=== PATIENT | female | born 1960 | race Caucasian/White ===

== ENCOUNTER → 2017-04-10 14:14 | Outpatient (POV) | payer BC, SELFPAY ==
[2017-04-10 15:00] VITALS: BP 145/96; PULSE 120; RESP 18; O2SAT 97
--- NOTE | 2017-04-10 15:05 | HMH.PAINSOAP ---
[facility] [place] Pain Management SOAP Note Subjective:: This patient is a pleasant 56-year-old white female who we previously treated in the pain clinic for low back pain with degenerative disease of lumbar spine and lumbar radiculopathy symptoms. This patient has recently had surgery on her thoracic spine with a benign tumor that was removed during surgery. Dr. Mosher did her surgery. She is starting to get some feeling back in her legs and low back area. She is starting to have some increasing pain. She did recently have an MRI in January of her thoracic and lumbar spine. This was done at [facility] we will try to get these results. We will also schedule her for a lumbar epidural steroid injection. She was told by Dr. Mosher that most of these symptoms are coming from degenerative changes throughout her lumbar spine and that she would benefit from a lumbar epidural steroid injection. Objective:: Alert and oriented ?3 no acute distress. Patient has an antalgic gait. She does have some numbness down both legs. Motor strength of the lower extremities is 4 out of 5. 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 Plan:: We will obtain the latest results on her thoracic and lumbar MRI from [facility]. We will also seek approval and plan on lumbar epidural steroid under fluoroscopy at L4-L5.
== END ==
PROVIDERS: Visit Provider Anesthesiology
DX: M51.16 Intervertebral disc disorders with radiculopathy, lumbar region (principal); M96.1 Postlaminectomy syndrome, not elsewhere classified
CPT/HCPCS: 99212

== ENCOUNTER 2017-10-07 13:40 | Inpatient (IN) ==
--- NOTE | 2017-10-07 14:28 | Emergency Department Note ---
ED Disposition Clinical Impression: Wound infection Cellulitis Qualifiers: Site of cellulitis: extremity Site of cellulitis of extremity: finger Laterality: left Qualified Code(s): L03.012 - Cellulitis of left finger Disposition: Admitted As Inpatient Condition on Discharge: Good Referrals: Afua Hurley [Primary Care Provider] - - Critical Care Critical Care Time: No Attestation: On 10/07/17, the high probability of a clinically significant, sudden or life threatening deterioration of the following system(s) required my full and direct attention, intervention and personal management. The time I documented below is in addition to time spent performing reported procedures but includes the following listed in this critical care notation. Medical Decision Making - Obed Inquiry Pt receiving controlled substance: No Vital Signs: 10/07/17 13:57 10/07/17 14:54 10/07/17 14:56 Temperature 98.6 F Temperature Source Oral Pulse Rate [Left Radial] 113 H 104 H 100 H Respiratory Rate 20 20 18 Blood Pressure [Right Arm] 121/93 135/97 151/94 Blood Pressure Mean [Right Arm] 102 109 113 Blood Pressure Source [Right Arm] Automatic Cuff Automatic Cuff Automatic Cuff Blood Pressure Position [Right Arm] Sitting Sitting Supine 02 Sat by Pulse Oximetry 98 95 Oxygen Delivery Method Room Air Room Air - Lab Data Lab Results 10/07/17 14:20: WBC 14.3 H, RBC 4.88, Hgb 14.5, Hct 44.4, MCV 91.0, MCH 29.6, MCHC 32.6, RDW 12.9, Plt Count 247, MPV 8.3, Neut % (Auto) 80.4 H, Lymph % (Auto ) 11.7, Bay % (Auto) 5.8, Eos % (Auto) 1.6, Baso % (Auto) 0.5, Neut # (Auto) 11.5 H, Lymph # (Auto) 1.7, Bay # (Auto) 0.8, Eos # (Auto) 0.2, Baso # (Auto) 0.1 10/07/17 14:20: Sodium 139, Potassium 3.3 L, Chloride 103, Carbon Dioxide 28, Anion Gap 11.3, BUN 12, Creatinine 1.27 H, Estimated Creat Clear 77, Estimated GFR 44 L, Est GFR ( Amer) 53 L, Glucose 96, Calcium 8.9, Total Bilirubin 0.7, AST 14 L, ALT 24, Alkaline Phosphatase 87, Total Protein 8.2, Albumin 3.9, Globulin 4.3 H, Albumin/Globulin Ratio 0.9 L 10/07/17 14:20: Lactic Acid 1.5 Result diagrams: 10/07/17 14:20 10/07/17 14:20 Orders (Tests/Meds): ED MEDICATIONS Generic Name Dose Route Start Last Admin Trade Name Freq PRN Reason Stop Dose Admin Vancomycin HCl 1,750 mg/ 250 mls @ 125 mls/hr 10/07/17 15:00 10/07/17 15:38 Sodium Chloride IV 10/07/17 16:59 125 mls/hr ONCE ONE Administration Discontinued Medications Generic Name Dose Route Start Last Admin Trade Name Freq PRN Reason Stop Dose Admin Piperacillin Sod/Tazobactam 100 mls @ 200 mls/hr 10/07/17 14:43 10/07/17 14: 50 Sod 4.5 gm/ Sodium Chloride IV 10/07/17 14:44 200 mls/hr ONCE ONE Administration Protocol Miscellaneous 1 each 10/07/17 14:45 10/07/17 14:46 Vancomycin Consult Request * 11/06/17 14:44 1 each CONSULT PHARMACY [facility] Administration Tetanus/Reduced Diphtheria/Acell Pertussis 0.5 ml 10/07/17 14:46 10/07/17 14: 49 Adacel Tdap 0.5ml Syringe IM 10/07/17 14:47 0.5 ml .ONCE ONE Administration ORDERS Category Date Time Status Blood Culture Stat Micro 10/07/17 14:20 Received - Radiology Data #1 Image(s): Hand Image Reviewed: Yes I have reviewed radiologist's interpretation Soft tissue swelling, otherwise negative - Physician Consults Physician Consulted: [facility] Time: 16:32 Reason -: Transfer to another facilty Comment/Response: He does not feel patient needs to be transferred there. Based on her presentation he feels she can be admitted here for IV antibiotics. Additional Consult: Bar Time: 16:32 Reason -: Admission Comment/Response: Agrees to admit the patient to the hospital. We discussed the patient's clinical information, including history, exam, laboratory and radiology results and ED course. Per hospital procedure, I will write temporary bridge inpatient orders on the patient. Specific orders requested by the admitting physician: Continue antibiotics Medical Decision Narrative: Review of culture shows preliminary of gram-positive cocci. General Adult HPI - General Chief complaint: Wound/Laceration Stated complaint: Infected LAC L Middle Finger AO [id number] Time Seen by Provider: 10/07/17 14:28 Mode of Arrival: Ambulatory Limitations: No Limitations Description of Symptoms (Recalled from ER Triage Doc. by RN): PT hit/cut her left middle finger while doing dishes last week. She was seen in the [facility] yesterday and was given antibiotic, she returns today due to swelling, bruising and redness to finger - History of Present Illness HPI narrative: The patient cut the dorsum of her left middle finger middle phalanx about a week ago. It started getting infected on Sunday 2 days ago. She came to the urgent treatment center yesterday for some redness and swelling. She was started on oral antibiotics, Bactrim, Keflex, and Diflucan. Today it is much worse. It has become ecchymotic and violaceous around the middle phalanx and redness has now spread up onto the dorsum of her hand. Swelling is increased. She denies fever. She is able to fully straighten the finger. Has redness on the palmar aspect of the finger but does not have much pain on that surface. She can also flex actively. Last tetanus immunization is unknown. - Related Data Home Medications Medication Instructions Recorded Confirmed Albuterol Sulfate [Albuterol HFA 90 mg PO DAILY 10/07/17 10/07/17 Inhaler] Celecoxib 200 mg PO DAILY 10/07/17 10/07/17 Cyclobenzaprine HCl [Flexeril 10mg 10 mg PO DAILY 10/07/17 10/07/17 tablet] Duloxetine HCl 60 mg PO BID 10/07/17 10/07/17 Gabapentin [Neurontin 600mg 600 mg PO TID 10/07/17 10/07/17 tablet] Montelukast Sodium [Singulair 10mg 10 mg PO PM 10/07/17 10/07/17 tablet] Ropinirole HCl [Requip] 0.25 mg PO DAILY 10/07/17 10/07/17 Sulfamethoxazole/Trimethoprim 1 each PO BID 10/07/17 10/07/17 [Bactrim DS tablet] Tramadol HCl [Ultram Take Home 1 tab PO TID 10/07/17 10/07/17 Pack 50mg (10)] Trazodone HCl 50 mg PO Q4H 10/07/17 10/07/17 cephALEXin [Keflex 500mg Cap] 500 mg PO Q6H 10/07/17 10/07/17 Allergies Allergy/AdvReac Type Severity Reaction Status Date / Time No Known Drug Allergies Allergy Unknown Verified 10/06/17 12:29 [NO KNOWN DRUG ALLERGIES] [facility] History I have reviewed the patient's past medical history: Yes Medical History: Denies:: Diabetes Mellitus Type 1, Diabetes Mellitus Type 2 Laterality Cases: Bilateral: Carpal Tunnel Release, Other - Social History Smoking Status: Never smoker Alcohol Intake: never - Psychiatric History Expresses thoughts of harming self/others: None Suicide Plan Description: No Plan ROS Obtained: Yes Systems reviewed as appropriate & no additional complaints - Constitutional Constitutional: Denies fever(s) - Musculoskeletal Musculoskeletal: Reports as per HPI Physical Exam - General General appearance: alert, in no apparent distress - Respiratory Respiratory exam: Absent: respiratory distress - Cardiovascular Cardiovascular exam: Present: regular rate, normal rhythm - Expanded Upper Extremity Exam Left Comment: Left middle finger shows a transverse 2 cm laceration across the dorsum of the middle phalanx. Serous drainage present. Violaceous and ecchymotic discoloration of the middle phalanx. Erythema of the entire finger circumferentially, extending onto the dorsum of the hand over the third metacarpal. She is able to extend fully actively and passively. She can flex actively and passively. No tenderness over the flexor tendons in the palm of the hand. Mild tenderness of the flexor surface of the middle and distal phalanges. She is more tender over the dorsal surface. There is moderate edema of the finger. - Neurological Exam Neurological exam: Present: alert, oriented X3. Absent: motor sensory deficit
[2017-10-07 14:38] LABS: Basophils # 0.1 K/mm3 (0-0.2); Basophils % 0.5 % (0.1-2.0); Eosinophils # 0.2 K/mm3 (0.0-0.4); Eosinophils % 1.6 % (0.1-12.0); Hematocrit 44.4 % (37.0-47.0); Hemoglobin 14.5 g/dL (12.2-16.2); Lymphocytes # 1.7 K/mm3 (0.7-4.5); Lymphocytes % 11.7 K/mm3 (10-50); Mean Corpuscular HGB Conc 32.6 g/dL (31.8-35.4); Mean Corpuscular Hemoglobin 29.6 pg (27.0-31.2); Mean Platelet Volume 8.3 fl (7.4-10.4); Monocytes # 0.8 K/mm3 (0.1-1.0); Monocytes % 5.8 % (1.7-9.3); Neutrophils # 11.5 K/mm3 (1.8-7.8); Neutrophils % 80.4 % (37.0-80.0); Platelet Count 247 K/mm3 (142-424); Red Blood Count 4.88 M/mm3 (4.20-5.40); Red Cell Distribution Width 12.9 % (11.5-17.5); White Blood Count 14.3 K/mm3 (4.8-10.8)
[2017-10-07 14:49] LABS: Albumin Level 3.9 gm/dL (3.4-5.0); Albumin/Globulin Ratio 0.9 (1.1-1.8); Anion Gap 11.3 mEq/L (5-15); Bilirubin,Total 0.7 mg/dL (0.2-1.0); Calcium 8.9 mg/dL (8.5-10.1); Globulin 4.3 gm/dl (1.3-3.2); Potassium 3.3 mmoL/L (3.5-5.1); Total Protein,Serum 8.2 gm/dL (6.4-8.2)
[2017-10-08 06:08] LABS: Mean Platelet Volume 8.2 fl (7.4-10.4); Monocytes # 0.4 K/mm3 (0.1-1.0); Red Cell Distribution Width 12.9 % (11.5-17.5)
[2017-10-08 06:14] LABS: Basophils % 0.6 % (0.1-2.0); Eosinophils # 0.3 K/mm3 (0.0-0.4); Eosinophils % 3.8 % (0.1-12.0); Hematocrit 36.7 % (37.0-47.0); Lymphocytes # 1.6 K/mm3 (0.7-4.5); Lymphocytes % 22.4 K/mm3 (10-50); Mean Corpuscular HGB Conc 32.4 g/dL (31.8-35.4); Mean Corpuscular Hemoglobin 29.7 pg (27.0-31.2); Mean Corpuscular Volume 91.6 fl (81-99); Monocytes % 5.6 % (1.7-9.3); Neutrophils # 4.7 K/mm3 (1.8-7.8); Neutrophils % 67.6 % (37.0-80.0); Platelet Count 194 K/mm3 (142-424); Red Blood Count 4.01 M/mm3 (4.20-5.40)
[2017-10-08 06:16] LABS: Hemoglobin 11.9 g/dL (12.2-16.2)
--- NOTE | 2017-10-08 07:48 | Pharmacy Consult Notes ---
[facility] Pharmacy VTE Monitoring - Patient Demographics Admission date: 10/07/17 Report Date: 10/08/17 Time: 07:48 Allergies/Adverse Reactions: Patient Allergies No Known Drug Allergies [NO KNOWN DRUG ALLERGIES] Allergy (Unknown, Verified 12:29) Height: 1.63 m Weight: 101.151 kg Patient Problems: Current Active Problems Wound infection (Acute) Cellulitis (Acute) - VTE Risk Labs: VTE Related Lab Results Hgb 11.9 g/dL (12.2-16.2) L D 10/08/17 05:45 Hct 36.7 % (37.0-47.0) L 10/08/17 05:45 Plt Count 194 K/mm3 (142-424) 10/08/17 05:45 BUN 12 mg/dL (7-18) 10/07/17 14:20 Creatinine 1.27 mg/dL (0.55-1.02) H 10/07/17 14:20 Estimated Creat Clear 77 mL/min (0-300) 10/07/17 14:20 Was VTE Risk Assessment Performed: Yes VTE Score: 1 VTE Risk Level: Very Low Risk - Prophylaxis VTE Prophylaxis Ordered?: Yes Types of VTE Prophylaxis: TEDS Knee High Location of Applied Device: Bilateral Lower Extremeties - VTE Diagnosis Confirmed Treatment or plan recommended: Continue Current Treatment
--- NOTE | 2017-10-08 08:12 | Pharmacy Consult Notes ---
- Pharmacy Consult Date: 10/08/17 Time: 08:11 Referring provider: DR. CLARK Reason for Consult:: VANCOMYCIN DOSING Allergies and ADEs:: Allergies Allergy/AdvReac Type Severity Reaction Status Date / Time No Known Drug Allergies Allergy Unknown Verified 10/06/17 12:29 [NO KNOWN DRUG ALLERGIES] Home Medications:: Home Medications Medication Instructions Recorded Confirmed Type Albuterol Sulfate [Albuterol HFA 90 mg PO DAILY 10/07/17 10/07/17 History Inhaler] Celecoxib 200 mg PO DAILY 10/07/17 10/07/17 History Cyclobenzaprine HCl [Flexeril 10mg 10 mg PO DAILY 10/07/17 10/07/17 History tablet] Duloxetine HCl 60 mg PO BID 10/07/17 10/07/17 History Gabapentin [Neurontin 600mg 600 mg PO TID 10/07/17 10/07/17 History tablet] Montelukast Sodium [Singulair 10mg 10 mg PO PM 10/07/17 10/07/17 History tablet] Ropinirole HCl [Requip] 0.25 mg PO DAILY 10/07/17 10/07/17 History Sulfamethoxazole/Trimethoprim 1 each PO BID 10/07/17 10/07/17 History [Bactrim DS tablet] Tramadol HCl [Ultram Take Home 1 tab PO TID 10/07/17 10/07/17 History Pack 50mg (10)] Trazodone HCl 50 mg PO Q4H 10/07/17 10/07/17 History cephALEXin [Keflex 500mg Cap] 500 mg PO Q6H 10/07/17 10/07/17 History Height: 1.63 m Weight: 101.151 kg Laboratory Results:: Laboratory Results - last 24 hr 10/07/17 14:20: WBC 14.3 H, RBC 4.88, Hgb 14.5, Hct 44.4, MCV 91.0, MCH 29.6, MCHC 32.6, RDW 12.9, Plt Count 247, MPV 8.3, Neut % (Auto) 80.4 H, Lymph % (Auto ) 11.7, Spencer % (Auto) 5.8, Eos % (Auto) 1.6, Baso % (Auto) 0.5, Neut # (Auto) 11.5 H, Lymph # (Auto) 1.7, Spencer # (Auto) 0.8, Eos # (Auto) 0.2, Baso # (Auto) 0.1 10/07/17 14:20: Sodium 139, Potassium 3.3 L, Chloride 103, Carbon Dioxide 28, Anion Gap 11.3, BUN 12, Creatinine 1.27 H, Estimated Creat Clear 77, Estimated GFR 44 L, Est GFR ( Amer) 53 L, Glucose 96, Calcium 8.9, Total Bilirubin 0.7, AST 14 L, ALT 24, Alkaline Phosphatase 87, Total Protein 8.2, Albumin 3.9, Globulin 4.3 H, Albumin/Globulin Ratio 0.9 L 10/07/17 14:20: Lactic Acid 1.5 10/08/17 05:45: WBC 7.0 D, RBC 4.01 L, Hgb 11.9 L D, Hct 36.7 L, MCV 91.6, MCH 29.7, MCHC 32.4, RDW 12.9, Plt Count 194, MPV 8.2, Neut % (Auto) 67.6, Lymph % ( Auto) 22.4, Spencer % (Auto) 5.6, Eos % (Auto) 3.8, Baso % (Auto) 0.6, Neut # (Auto ) 4.7, Lymph # (Auto) 1.6, Spencer # (Auto) 0.4, Eos # (Auto) 0.3, Baso # (Auto) 0.0 Medical History: Reports:: Hypertension Denies:: Cancer, Diabetes Mellitus Type 1, Diabetes Mellitus Type 2, MRSA Assessment and Plan - Assessment and plan all Dx Assessment and Plan for all problems:: BASED ON PATIENT FACTORS, RECOMMEND VANCOMYCIN 1750 MG IV Q24H. PHARMACY WILL FOLLOW DAILY AND ADJUST APPROPRIATE.
--- NOTE | 2017-10-08 09:06 | History & Physical Report ---
*Admission Date: 10/07/17 <Kandice Alicea 10/08/17 09:06> *Chief complaint: Cellulitis of mid finger on left hand <Kandice Alicea 10/08 09:06> *History of present illness: Ms. Cardona is a 57-year-old female who presented to [facility] emergency room with increased edema of the left middle finger. She describes cutting his finger when washing the dishes about a week ago. She states she did not notice an infection until 10/05/2017. She did go to urgent treatment center at which time she placed on Bactrim and Keflex. Yesterday the edema was worse and she decided to come to the emergency room. She also describes edema of the hand. She denies having a fever. She was evaluated in the emergency room and admitted for IV antibiotics. She also has an orthopedic consult. She feels that the swelling has improved overnight. <Kandice Alicea 10/08/17 11:30> [facility] History Medical History: Reports:: Cancer, Gastroesophageal Reflux Disease(GERD), Hypertension Denies:: Coronary Artery Disease, Diabetes Mellitus Type 1, Diabetes Mellitus Type 2, MRSA, Seizures <Kandice Alicea 10/08/17 11:30> Laterality Cases: Bilateral: Carpal Tunnel Release, Other <Kandice Alicea 05/27 09:06> Other Surgeries: Yes: Cholecystectomy, , Other (cancerous mass removed from spine 2016) <Kandice Alicea 10/08/17 11:30> Amputation: No <Kandice Alicea 10/08/17 09:06> Fractures: No <Kandice Alicea 10/08/17 09:06> - *Social History Educational Level: Completed High School <Kandice Alicea 10/08/17 09:06> Smoking Status: Never smoker <Kandice Alicea 10/08/17 09:06> Alcohol Intake: never <Kandice Alicea 10/08/17 09:06> Occupational Status: disabled <Kandice Alicea 10/08/17 09:06> Housing: house <Kandice Alicea 10/08/17 09:06> Household Members: spouse <Kandice Alicea 10/08/17 09:06> - Psychiatric History Expresses thoughts of harming self/others: None <Kandice Alicea 10/08/17 09: 06> Suicide Plan Description: No Plan <Kandice Alicea 10/08/17 09:06> *Family Hx:: no Cancer, no Coronary Artery Disease, no Diabetes <Kandice Alicea 10/08/17 11:30> Review of Systems - Constitutional Denies fever(s), Denies headache(s) <NixonKandice Francisco 10/08/17 11:30> - ENT Denies ear pain, Denies sore throat <Kandice Alicea 10/08/17 11:30> - *Cardiovascular Denies chest pain, Denies shortness of breath, Denies irregular heart rhythm, Denies leg swelling <NixonKandice 10/08/17 11:30> - *Respiratory Denies chest congestion, Denies cough, Denies shortness of breath <Nixon Kandice 10/08/17 11:30> - *Gastrointestinal Denies abdominal pain, Denies heartburn, Denies nausea, Denies vomiting < Kandice Alicea 10/08/17 11:30> - *Genitourinary Denies difficulty urinating, Denies urinary incontinence <Kandice Alicea 05/27 11:30> - *Musculoskeletal Reports abnormal walking, Reports joint pain <Kandice Alicea 10/08/17 11:30> Comments: PAIN AROUND INFECTED AREA ON LEFT MIDDLE FINGER; THE SWELLING IN THE FINGER AND HAND INCREASED OVER THE PAST 2-3 DAYS <AliceaKandice 10/08/17 11:30> - *Neurologic Reports abnormal walking, Reports numbness (after mass removed from her back) <NixonKandice 10/08/17 11:30> Comments: uses cane sometimes <Kandice Alicea 10/08/17 11:30> Meds Home Medications Medication Instructions Recorded Confirmed Type Albuterol Sulfate [Albuterol HFA 90 mg PO DAILY 10/07/17 10/07/17 History Inhaler] Celecoxib 200 mg PO BID 10/07/17 10/08/17 History Cyclobenzaprine HCl [Flexeril 10mg 10 mg PO DAILY 10/07/17 10/07/17 History tablet] Duloxetine HCl 60 mg PO BID 10/07/17 10/07/17 History Gabapentin [Neurontin 600mg 600 mg PO TID 10/07/17 10/07/17 History tablet] Montelukast Sodium [Singulair 10mg 10 mg PO PM 10/07/17 10/07/17 History tablet] Ropinirole HCl [Requip] 0.25 mg PO DAILY 10/07/17 10/07/17 History Sulfamethoxazole/Trimethoprim 1 each PO BID 10/07/17 10/07/17 History [Bactrim DS tablet] Trazodone HCl 50 mg PO DAILY 10/07/17 10/08/17 History cephALEXin [Keflex 500mg Cap] 500 mg PO Q6H 10/07/17 10/07/17 History Tramadol HCl [Ultram 50mg 50 mg PO TID 10/08/17 10/08/17 History tablet] <Tomasz Dinero - 10/08/17 11:45> Allergies Allergy/AdvReac Type Severity Reaction Status Date / Time No Known Drug Allergies Allergy Unknown Verified 10/06/17 12:29 [NO KNOWN DRUG ALLERGIES] <Tomasz Dinero - 10/08/17 11:45> Exam Vital signs and Labs for Last 24 Hours: Temp Pulse Resp BP Pulse Ox 97.8 F 101 H 18 104/65 98 10/08/17 08:00 10/08/17 08:00 10/08/17 08:00 10/08/17 08:00 10/08/17 08:00 Laboratory Results - last 24 hr 10/07/17 14:20: WBC 14.3 H, RBC 4.88, Hgb 14.5, Hct 44.4, MCV 91.0, MCH 29.6, MCHC 32.6, RDW 12.9, Plt Count 247, MPV 8.3, Neut % (Auto) 80.4 H, Lymph % (Auto ) 11.7, [place] % (Auto) 5.8, Eos % (Auto) 1.6, Baso % (Auto) 0.5, Neut # (Auto) 11.5 H, Lymph # (Auto) 1.7, [place] # (Auto) 0.8, Eos # (Auto) 0.2, Baso # (Auto) 0.1 10/07/17 14:20: Sodium 139, Potassium 3.3 L, Chloride 103, Carbon Dioxide 28, Anion Gap 11.3, BUN 12, Creatinine 1.27 H, Estimated Creat Clear 77, Estimated GFR 44 L, Est GFR ( Amer) 53 L, Glucose 96, Calcium 8.9, Total Bilirubin 0.7, AST 14 L, ALT 24, Alkaline Phosphatase 87, Total Protein 8.2, Albumin 3.9, Globulin 4.3 H, Albumin/Globulin Ratio 0.9 L 10/07/17 14:20: Lactic Acid 1.5 10/08/17 05:45: WBC 7.0 D, RBC 4.01 L, Hgb 11.9 L D, Hct 36.7 L, MCV 91.6, MCH 29.7, MCHC 32.4, RDW 12.9, Plt Count 194, MPV 8.2, Neut % (Auto) 67.6, Lymph % ( Auto) 22.4, [place] % (Auto) 5.6, Eos % (Auto) 3.8, Baso % (Auto) 0.6, Neut # (Auto ) 4.7, Lymph # (Auto) 1.6, [place] # (Auto) 0.4, Eos # (Auto) 0.3, Baso # (Auto) 0.0 <Tomasz Dinero - 10/08/17 11:45> Temp Pulse Resp BP Pulse Ox 97.8 F 101 H 18 104/65 98 10/08/17 08:00 10/08/17 08:00 10/08/17 08:00 10/08/17 08:00 10/08/17 08:00 Laboratory Results - last 24 hr 10/07/17 14:20: WBC 14.3 H, RBC 4.88, Hgb 14.5, Hct 44.4, MCV 91.0, MCH 29.6, MCHC 32.6, RDW 12.9, Plt Count 247, MPV 8.3, Neut % (Auto) 80.4 H, Lymph % (Auto ) 11.7, [place] % (Auto) 5.8, Eos % (Auto) 1.6, Baso % (Auto) 0.5, Neut # (Auto) 11.5 H, Lymph # (Auto) 1.7, [place] # (Auto) 0.8, Eos # (Auto) 0.2, Baso # (Auto) 0.1 10/07/17 14:20: Sodium 139, Potassium 3.3 L, Chloride 103, Carbon Dioxide 28, Anion Gap 11.3, BUN 12, Creatinine 1.27 H, Estimated Creat Clear 77, Estimated GFR 44 L, Est GFR ( Amer) 53 L, Glucose 96, Calcium 8.9, Total Bilirubin 0.7, AST 14 L, ALT 24, Alkaline Phosphatase 87, Total Protein 8.2, Albumin 3.9, Globulin 4.3 H, Albumin/Globulin Ratio 0.9 L 10/07/17 14:20: Lactic Acid 1.5 10/08/17 05:45: WBC 7.0 D, RBC 4.01 L, Hgb 11.9 L D, Hct 36.7 L, MCV 91.6, MCH 29.7, MCHC 32.4, RDW 12.9, Plt Count 194, MPV 8.2, Neut % (Auto) 67.6, Lymph % ( Auto) 22.4, [place] % (Auto) 5.6, Eos % (Auto) 3.8, Baso % (Auto) 0.6, Neut # (Auto ) 4.7, Lymph # (Auto) 1.6, [place] # (Auto) 0.4, Eos # (Auto) 0.3, Baso # (Auto) 0.0 <Kandice Alicea - 10/08/17 11:30> I & O for Last 24 hours: Intake & Output 10/05/17 10/06/17 10/07/17 10/08/17 11:59 11:59 11:59 11:59 Intake Total 994 / 994 Balance 994 / 994 Weight 223 lb <Tomasz Dinero - 10/08/17 11:45> Intake & Output 10/05/17 10/06/17 10/07/17 10/08/17 11:59 11:59 11:59 11:59 Intake Total 994 / 994 Balance 994 / 994 Weight 223 lb <Kandice Alicea - 10/08/17 09:06> Microbiology Reports for the Last 24 Hours: cuture reveals staoh aureus <Kandice Alicea - 10/08/17 11:30> Radiology Reports for the Last 24 Hours: 10/07/17 xRAY OF THE LEFT HAND IMPRESSION: Soft tissue swelling of the third finger otherwise negative <Kandice Alicea 10/08/17 11:30> - Constitutional no acute distress <Kandice Alicea 10/08/17 11:30> Comments: SITTING UP IN THE BED AND APPEARS COMFORTABLE <Kandice Alicea 10/08/17 11:30> - *Routine HEENT Exam Head: Present: normocephalic, atraumatic <[facility] 10/08/17 11:30> Eye: Present: PERRL. Absent: conjunctival icterus, scleral injection <[facility] 10/08/17 11:30> ENT: Present: mucous membranes moist, oropharynx clear [facility] 11:30> - *Routine Neck Exam Present: supple. Absent: carotid bruit, thyromegaly <[facility] 11:30> - *Routine Respiratory Exam Present: CTA bilaterally (A&P) <[facility] 10/08/17 11:30> - *Routine Cardiovascular Exam Present: RRR <[facility] 10/08/17 11:30> - *Routine Abdominal Exam Present: normoactive bowel sounds. Absent: tenderness <Kandice Alicea 11:30> - *Routine Extremities Exam Absent: calf tenderness <[facility] 10/08/17 11:30> Comments: left middle finger with discoloration and edema with limited ROM; some edema of the dorsal aspect of the left had; no erythema of the hand no leg edema <[facility] 10/08/17 11:30> - *Routine Neurological Exam Present: alert, oriented X3 <[facility] 10/08/17 11:30> H&P: Result - Labs Labs: Short CBC 10/07/17 10/08/17 Range/Units 14:20 05:45 WBC 14.3 H 7.0 D (4.8-10.8) K/mm3 Hgb 14.5 11.9 L D (12.2-16.2) g/dL Hct 44.4 36.7 L (37.0-47.0) % Plt Count 247 194 (142-424) K/mm3 [facility] 10/07/17 14:20 Sodium 139 Potassium 3.3 L Chloride 103 Carbon Dioxide 28 BUN 12 Creatinine 1.27 H Glucose 96 Calcium 8.9 Liver Function 10/07/17 Range/Units 14:20 Total Bilirubin 0.7 (0.2-1.0) mg/dL AST 14 L (15-37) U/L ALT 24 (12-78) U/L Alkaline Phosphatase 87 (46-116) U/L Albumin 3.9 (3.4-5.0) gm/dL <Tomasz Dinero - 10/08/17 11:45> Short CBC 10/07/17 10/08/17 Range/Units 14:20 05:45 WBC 14.3 H 7.0 D (4.8-10.8) K/mm3 Hgb 14.5 11.9 L D (12.2-16.2) g/dL Hct 44.4 36.7 L (37.0-47.0) % Plt Count 247 194 (142-424) K/mm3 [facility] 10/07/17 14:20 Sodium 139 Potassium 3.3 L Chloride 103 Carbon Dioxide 28 BUN 12 Creatinine 1.27 H Glucose 96 Calcium 8.9 Liver Function 10/07/17 Range/Units 14:20 Total Bilirubin 0.7 (0.2-1.0) mg/dL AST 14 L (15-37) U/L ALT 24 (12-78) U/L Alkaline Phosphatase 87 (46-116) U/L Albumin 3.9 (3.4-5.0) gm/dL <Kandice Alicea - 10/08/17 09:06> Assessment and Plan (1) Cellulitis Current visit: Yes Status: Acute Qualifiers: Site of cellulitis: extremity Site of cellulitis of extremity: finger Laterality: left Qualified Code(s): L03.012 - Cellulitis of left finger Category: Medical Code(s): L03.90 - Cellulitis, unspecified (2) Wound infection Current visit: Yes Status: Acute Category: Medical Code(s): T14.8XXA - Other injury of unspecified body region, initial encounter; L08.9 - Local infection of the skin and subcutaneous tissue, unspecified (3) Finger infection Current visit: No Status: Acute Category: Medical Code(s): L08.9 - Local infection of the skin and subcutaneous tissue, unspecified <Tomasz Dinero - 10/08/17 11:45> (1) Cellulitis Current visit: Yes Status: Acute Qualifiers: Site of cellulitis: extremity Site of cellulitis of extremity: finger Laterality: left Qualified Code(s): L03.012 - Cellulitis of left finger Category: Medical Code(s): L03.90 - Cellulitis, unspecified (2) Wound infection Current visit: Yes Status: Acute Category: Medical Code(s): T14.8XXA - Other injury of unspecified body region, initial encounter; L08.9 - Local infection of the skin and subcutaneous tissue, unspecified (3) Finger infection Current visit: No Status: Acute Category: Medical Code(s): L08.9 - Local infection of the skin and subcutaneous tissue, unspecified <Kandice Alicea - 10/08/17 11:10> - Assessment and plan all Dx Assessment and Plan for all problems:: Saw patient, agree with above note. <Tomasz Dinero - 10/08/17 11:45> IV ABX; orthopedic consult <Kandice Alicea - 10/08/17 11:30>
--- NOTE | 2017-10-08 12:54 | Consult Report ---
*Admission Date: 10/07/17 *Chief complaint: Laceration/infection left middle finger *History of present illness: Patient is a 57-year-old female who states that while at home, approximately 1 week ago, she incurred a laceration to the dorsal aspect of her left middle finger overlying the PIP joint. This occurred with a broken piece of Pyrex. She states that she did not notice any significant swelling until the day or so ago but also noted a purulent discharge at that point. She was seen in the urgent treatment center placed on Bactrim and Keflex. Upon noticing that the swelling was worse she presented to the emergency department where she was admitted and placed on ampicillin and vancomycin. Cultures were sent for aerobic and anaerobic cultures and currently have been positive for Staphylococcus aureus. EXAMINATION patient is limited to the left hand. The hand is warm and dry with flexion of the left middle finger. There is an area of purulent discharge overlying the PIP joint dorsally. There is an area of necrotic skin with superficial donation and a surrounding border of erythema. The patient is sensate to light touch radial and ulnar borders in the volar pad as well. There is no evidence of Kanavel's signs. No evidence of flexor tenosynovitis. No tenderness along the flexor tendon is noted. [place] purulent discharge is noted emanating from the dorsal aspect of the finger. IMPRESSION laceration dorsal aspect of left index finger with infection, possibly involving the actual joint itself. Unable to assess integrity of the extensor tendon at this point PLAN patient's been discussed with Dr. Low, the on-call orthopedic surgeon who will assess the patient independently and provide further recommendations and treatment. Patient has been advised of this handoff. Review of Systems - *Neurologic Reports abnormal walking, Reports numbness (after mass removed from her back), Denies headache(s) [facility] History Medical History: Reports:: Cancer, Gastroesophageal Reflux Disease(GERD), Hypertension Denies:: Chronic Obstructive Pulmonary Disease (COPD), Coronary Artery Disease, Diabetes Mellitus Type 1, Diabetes Mellitus Type 2, MRSA, Seizures Laterality Cases: Bilateral: Carpal Tunnel Release, Other Other Surgeries: Yes: Cholecystectomy, , Other (cancerous mass removed from spine 2016) Amputation: No Fractures: No - *Social History Educational Level: Completed High School Smoking Status: Never smoker Alcohol Intake: never Occupational Status: disabled Housing: house Household Members: spouse - Psychiatric History Expresses thoughts of harming self/others: None Suicide Plan Description: No Plan *Family Hx:: no Cancer, no Coronary Artery Disease, no Diabetes Meds Home Medications Medication Instructions Recorded Confirmed Type Albuterol Sulfate [Albuterol HFA 2 puff INHALATION Q4-6H PRN 10/07/17 10/08/17 History Inhaler] Celecoxib 200 mg PO BID 10/07/17 10/08/17 History Cyclobenzaprine HCl [Flexeril 10mg 10 mg PO DAILY 10/07/17 10/07/17 History tablet] Duloxetine HCl 60 mg PO BID 10/07/17 10/07/17 History Gabapentin [Neurontin 600mg 1,200 mg PO TID 10/07/17 10/08/17 History tablet] Montelukast Sodium [Singulair 10mg 10 mg PO HS 10/07/17 10/08/17 History tablet] Sulfamethoxazole/Trimethoprim 1 each PO BID 10/07/17 10/07/17 History [Bactrim DS tablet] Trazodone HCl 50 mg PO HS 10/07/17 10/08/17 History cephALEXin [Keflex 500mg Cap] 500 mg PO Q6H 10/07/17 10/07/17 History Ropinirole HCl [Requip] 0.5 mg PO HS 10/08/17 10/08/17 History Tramadol HCl [Ultram 50mg 50 mg PO TID 10/08/17 10/08/17 History tablet] Allergies Allergy/AdvReac Type Severity Reaction Status Date / Time No Known Drug Allergies Allergy Unknown Verified 10/06/17 12:29 [NO KNOWN DRUG ALLERGIES] Exam Vital signs and Labs for Last 24 Hours: Temp Pulse Resp BP Pulse Ox 97.8 F 101 H 18 104/65 98 10/08/17 08:00 10/08/17 08:00 10/08/17 08:00 10/08/17 08:00 10/08/17 08:00 Laboratory Results - last 24 hr 10/07/17 14:20: WBC 14.3 H, RBC 4.88, Hgb 14.5, Hct 44.4, MCV 91.0, MCH 29.6, MCHC 32.6, RDW 12.9, Plt Count 247, MPV 8.3, Neut % (Auto) 80.4 H, Lymph % (Auto ) 11.7, [place] % (Auto) 5.8, Eos % (Auto) 1.6, Baso % (Auto) 0.5, Neut # (Auto) 11.5 H, Lymph # (Auto) 1.7, [place] # (Auto) 0.8, Eos # (Auto) 0.2, Baso # (Auto) 0.1 10/07/17 14:20: Sodium 139, Potassium 3.3 L, Chloride 103, Carbon Dioxide 28, Anion Gap 11.3, BUN 12, Creatinine 1.27 H, Estimated Creat Clear 77, Estimated GFR 44 L, Est GFR ( Amer) 53 L, Glucose 96, Calcium 8.9, Total Bilirubin 0.7, AST 14 L, ALT 24, Alkaline Phosphatase 87, Total Protein 8.2, Albumin 3.9, Globulin 4.3 H, Albumin/Globulin Ratio 0.9 L 10/07/17 14:20: Lactic Acid 1.5 10/08/17 05:45: WBC 7.0 D, RBC 4.01 L, Hgb 11.9 L D, Hct 36.7 L, MCV 91.6, MCH 29.7, MCHC 32.4, RDW 12.9, Plt Count 194, MPV 8.2, Neut % (Auto) 67.6, Lymph % ( Auto) 22.4, [place] % (Auto) 5.6, Eos % (Auto) 3.8, Baso % (Auto) 0.6, Neut # (Auto ) 4.7, Lymph # (Auto) 1.6, [place] # (Auto) 0.4, Eos # (Auto) 0.3, Baso # (Auto) 0.0 I & O for Last 24 hours: Intake & Output 10/06/17 10/07/17 10/08/17 10/09/17 11:59 11:59 11:59 11:59 Intake Total 994 / 994 Balance 994 / 994 Weight 223 lb - Detailed Upper Extremity Exam Shoulder/Upper Arm: Left wound (ASSESSMENT:) Results - Labs Result Diagrams: 10/09/17 05:57 10/09/17 05:57 Labs: Abnormal lab results 10/07/17 10/07/17 10/08/17 Range/Units 14:20 14:20 05:45 WBC 14.3 H (4.8-10.8) K/mm3 RBC 4.01 L (4.20-5.40) M/mm3 Hgb 11.9 L D (12.2-16.2) g/dL Hct 36.7 L (37.0-47.0) % Neut % (Auto) 80.4 H (37.0-80.0) % Neut # (Auto) 11.5 H (1.8-7.8) K/mm3 Potassium 3.3 L (3.5-5.1) mmoL/L Creatinine 1.27 H (0.55-1.02) mg/dL Estimated GFR 44 L (>60) ml/min Est GFR ( Amer) 53 L (>60) ML/MIN AST 14 L (15-37) U/L Globulin 4.3 H (1.3-3.2) gm/dl Albumin/Globulin Ratio 0.9 L (1.1-1.8) H & H 10/07/17 10/08/17 Range/Units 14:20 05:45 Hgb 14.5 11.9 L D (12.2-16.2) g/dL Hct 44.4 36.7 L (37.0-47.0) % All other labs normal. Assessment and Plan (1) Wound infection Current visit: Yes Status: Acute Category: Medical Code(s): T14.8XXA - Other injury of unspecified body region, initial encounter; L08.9 - Local infection of the skin and subcutaneous tissue, unspecified (2) Finger infection Current visit: No Status: Acute Category: Medical Code(s): L08.9 - Local infection of the skin and subcutaneous tissue, unspecified
--- NOTE | 2017-10-08 13:05 | Consult Report ---
*Admission Date: 10/07/17 *History of present illness: Ms. Cardona is a 57-year-old female who presented to [facility] emergency room with increased edema of the left middle finger. She describes cutting his finger when washing the dishes about a week ago. She states she did not notice an infection until 10/05/2017. She did go to urgent treatment center at which time she placed on Bactrim and Keflex. Yesterday the edema was worse and she decided to come to the emergency room. She also describes edema of the hand. She denies having a fever. She was evaluated in the emergency room and admitted for IV antibiotics. She also has an orthopedic consult. She feels that the swelling has improved overnight. Review of Systems - *Neurologic Reports abnormal walking, Reports numbness (after mass removed from her back), Denies headache(s) [facility] History Medical History: Reports:: Cancer, Gastroesophageal Reflux Disease(GERD), Hypertension Denies:: Chronic Obstructive Pulmonary Disease (COPD), Coronary Artery Disease, Diabetes Mellitus Type 1, Diabetes Mellitus Type 2, MRSA, Seizures Laterality Cases: Bilateral: Carpal Tunnel Release, Other Other Surgeries: Yes: Cholecystectomy, , Other (cancerous mass removed from spine 2016) Amputation: No Fractures: No - *Social History Educational Level: Completed High School Smoking Status: Never smoker Alcohol Intake: never Occupational Status: disabled Housing: house Household Members: spouse - Psychiatric History Expresses thoughts of harming self/others: None Suicide Plan Description: No Plan *Family Hx:: no Cancer, no Coronary Artery Disease, no Diabetes Meds Home Medications Medication Instructions Recorded Confirmed Type Albuterol Sulfate [Albuterol HFA 2 puff INHALATION Q4-6H PRN 10/07/17 10/08/17 History Inhaler] Celecoxib 200 mg PO BID 10/07/17 10/08/17 History Cyclobenzaprine HCl [Flexeril 10mg 10 mg PO DAILY 10/07/17 10/07/17 History tablet] Duloxetine HCl 60 mg PO BID 10/07/17 10/07/17 History Gabapentin [Neurontin 600mg 1,200 mg PO TID 10/07/17 10/08/17 History tablet] Montelukast Sodium [Singulair 10mg 10 mg PO HS 10/07/17 10/08/17 History tablet] Sulfamethoxazole/Trimethoprim 1 each PO BID 10/07/17 10/07/17 History [Bactrim DS tablet] Trazodone HCl 50 mg PO DAILY 10/07/17 10/08/17 History cephALEXin [Keflex 500mg Cap] 500 mg PO Q6H 10/07/17 10/07/17 History Ropinirole HCl [Requip] 0.5 mg PO HS 10/08/17 10/08/17 History Tramadol HCl [Ultram 50mg 50 mg PO TID 10/08/17 10/08/17 History tablet] Allergies Allergy/AdvReac Type Severity Reaction Status Date / Time No Known Drug Allergies Allergy Unknown Verified 10/06/17 12:29 [NO KNOWN DRUG ALLERGIES] Exam Vital signs and Labs for Last 24 Hours: Temp Pulse Resp BP Pulse Ox 97.8 F 101 H 18 104/65 98 10/08/17 08:00 10/08/17 08:00 10/08/17 08:00 10/08/17 08:00 10/08/17 08:00 Laboratory Results - last 24 hr 10/07/17 14:20: WBC 14.3 H, RBC 4.88, Hgb 14.5, Hct 44.4, MCV 91.0, MCH 29.6, MCHC 32.6, RDW 12.9, Plt Count 247, MPV 8.3, Neut % (Auto) 80.4 H, Lymph % (Auto ) 11.7, [place] % (Auto) 5.8, Eos % (Auto) 1.6, Baso % (Auto) 0.5, Neut # (Auto) 11.5 H, Lymph # (Auto) 1.7, [place] # (Auto) 0.8, Eos # (Auto) 0.2, Baso # (Auto) 0.1 10/07/17 14:20: Sodium 139, Potassium 3.3 L, Chloride 103, Carbon Dioxide 28, Anion Gap 11.3, BUN 12, Creatinine 1.27 H, Estimated Creat Clear 77, Estimated GFR 44 L, Est GFR ( Amer) 53 L, Glucose 96, Calcium 8.9, Total Bilirubin 0.7, AST 14 L, ALT 24, Alkaline Phosphatase 87, Total Protein 8.2, Albumin 3.9, Globulin 4.3 H, Albumin/Globulin Ratio 0.9 L 10/07/17 14:20: Lactic Acid 1.5 10/08/17 05:45: WBC 7.0 D, RBC 4.01 L, Hgb 11.9 L D, Hct 36.7 L, MCV 91.6, MCH 29.7, MCHC 32.4, RDW 12.9, Plt Count 194, MPV 8.2, Neut % (Auto) 67.6, Lymph % ( Auto) 22.4, [place] % (Auto) 5.6, Eos % (Auto) 3.8, Baso % (Auto) 0.6, Neut # (Auto ) 4.7, Lymph # (Auto) 1.6, [place] # (Auto) 0.4, Eos # (Auto) 0.3, Baso # (Auto) 0.0 I & O for Last 24 hours: Intake & Output 10/06/17 10/07/17 10/08/17 10/09/17 11:59 11:59 11:59 11:59 Intake Total 994 / 994 Balance 994 / 994 Weight 223 lb Results - Labs Result Diagrams: 10/08/17 05:45 10/07/17 14:20 Labs: Abnormal lab results 10/07/17 10/07/17 10/08/17 Range/Units 14:20 14:20 05:45 WBC 14.3 H (4.8-10.8) K/mm3 RBC 4.01 L (4.20-5.40) M/mm3 Hgb 11.9 L D (12.2-16.2) g/dL Hct 36.7 L (37.0-47.0) % Neut % (Auto) 80.4 H (37.0-80.0) % Neut # (Auto) 11.5 H (1.8-7.8) K/mm3 Potassium 3.3 L (3.5-5.1) mmoL/L Creatinine 1.27 H (0.55-1.02) mg/dL Estimated GFR 44 L (>60) ml/min Est GFR ( Amer) 53 L (>60) ML/MIN AST 14 L (15-37) U/L Globulin 4.3 H (1.3-3.2) gm/dl Albumin/Globulin Ratio 0.9 L (1.1-1.8) H & H 10/07/17 10/08/17 Range/Units 14:20 05:45 Hgb 14.5 11.9 L D (12.2-16.2) g/dL Hct 44.4 36.7 L (37.0-47.0) % All other labs normal. Assessment and Plan (1) Cellulitis Current visit: Yes Status: Acute Qualifiers: Site of cellulitis: extremity Site of cellulitis of extremity: finger Laterality: left Qualified Code(s): L03.012 - Cellulitis of left finger Category: Medical Code(s): L03.90 - Cellulitis, unspecified (2) Wound infection Current visit: Yes Status: Acute Category: Medical Code(s): T14.8XXA - Other injury of unspecified body region, initial encounter; L08.9 - Local infection of the skin and subcutaneous tissue, unspecified (3) Finger infection Current visit: No Status: Acute Category: Medical Code(s): L08.9 - Local infection of the skin and subcutaneous tissue, unspecified
--- NOTE | 2017-10-08 14:52 | Progress Note ---
[facility] Anesthesia Checklist - Patient Identification Patient Identification: Arm Band - Structural Data Admitted From: Inpatient Planned Operative Procedure/s: left finger washout Consent for Planned Operative Procedure(s) Verified: Yes Verified Documents: Surgical Consent, History and Physical - NPO Status Verified Time NPO: 12:00 (plan discussed with surgeon + pt to do digit block with minimal sedation (small amount of Versed only)d/t npo status. Pt and surgeon agree. ) - Additional verifications Anesthesia Reactions: No - Airway Assessment C-Spine Mobility Assessed: Yes (mp2) TMJ Mobility Assessed: Yes Dentition: Good Dentition - Neurological Assessment Level of Consciousness: Awake, Alert - Anesthesia Plan Anesthesia Risk discussed: Yes Anesthesia Plan: Verified ASA Class: II Anesthesia Type: MAC [facility] Anesthesia HX I have reviewed the patient's past medical history: Yes Medical History: Reports:: Asthma, Cancer, Gastroesophageal Reflux Disease(GERD) , Hypertension Denies:: Chronic Obstructive Pulmonary Disease (COPD), Coronary Artery Disease, Diabetes Mellitus Type 1, Diabetes Mellitus Type 2, MRSA, Seizures Other Medical History: Reports: Other (LE neuropathy) Laterality Cases: Bilateral: Carpal Tunnel Release, Other Other Surgeries: Yes: Cholecystectomy, , Other (cancerous mass removed from spine 2016) Amputation: No Fractures: No *Family Hx:: no Cancer, no Coronary Artery Disease, no Diabetes
--- NOTE | 2017-10-08 14:57 | Progress Note ---
Subjective Date: 10/08/17 Time: 13:30 Principal diagnosis: Infected laceration, left middle finger Interval history: Patient is a 57-year-old female who was admitted to hospital yesterday for management of infected left middle finger laceration. She sustained a laceration over the dorsal ulnar aspect of the her left middle finger about a week ago while washing dishes. She states states that a glass dish she was cleaning broke after hitting the side of bowl and she cut the finger on the sharp edge. She did not seek any medical attention initially and was treating it herself with peroxide and Neosporin. She states that she did not notice any significant swelling, redness or discharge until a couple of days ago. At that point she presented to the urgent treatment Center where she was diagnosed with infected laceration and was started on oral antibiotics. The next day she came back to the ER complaining of worsening pain, swelling and discharge from the wound. She is not getting any history of fevers, chills or rigors. Following assessment in the ER she was admitted to hospital for IV antibiotics and was started on ampicillin and vancomycin. Cultures were sent for aerobic and anaerobic cultures and currently have been positive for Staphylococcus aureus. She is nondiabetic and non-smoker. PN: Obj Ex Vital signs: Temp Pulse Resp BP Pulse Ox 97.8 F 101 H 18 104/65 98 10/08/17 08:00 10/08/17 08:00 10/08/17 08:00 10/08/17 08:00 10/08/17 08:00 Narrative: Laboratory Results - last 48 hr 10/07/17 10/07/17 10/07/17 14:20 14:20 14:20 WBC 14.3 H RBC 4.88 Hgb 14.5 Hct 44.4 MCV 91.0 MCH 29.6 MCHC 32.6 RDW 12.9 Plt Count 247 MPV 8.3 Neut % (Auto) 80.4 H Lymph % (Auto) 11.7 [place] % (Auto) 5.8 Eos % (Auto) 1.6 Baso % (Auto) 0.5 Neut # (Auto) 11.5 H Lymph # (Auto) 1.7 [place] # (Auto) 0.8 Eos # (Auto) 0.2 Baso # (Auto) 0.1 Sodium 139 Potassium 3.3 L Chloride 103 Carbon Dioxide 28 Anion Gap 11.3 BUN 12 Creatinine 1.27 H Estimated Creat Clear 77 Estimated GFR 44 L Est GFR ( Amer) 53 L Glucose 96 Lactic Acid 1.5 Calcium 8.9 Total Bilirubin 0.7 AST 14 L ALT 24 Alkaline Phosphatase 87 Total Protein 8.2 Albumin 3.9 Globulin 4.3 H Albumin/Globulin Ratio 0.9 L 10/08/17 05:45 WBC 7.0 D RBC 4.01 L Hgb 11.9 L D Hct 36.7 L MCV 91.6 MCH 29.7 MCHC 32.4 RDW 12.9 Plt Count 194 MPV 8.2 Neut % (Auto) 67.6 Lymph % (Auto) 22.4 [place] % (Auto) 5.6 Eos % (Auto) 3.8 Baso % (Auto) 0.6 Neut # (Auto) 4.7 Lymph # (Auto) 1.6 [place] # (Auto) 0.4 Eos # (Auto) 0.3 Baso # (Auto) 0.0 Sodium Potassium Chloride Carbon Dioxide Anion Gap BUN Creatinine Estimated Creat Clear Estimated GFR Est GFR ( Amer) Glucose Lactic Acid Calcium Total Bilirubin AST ALT Alkaline Phosphatase Total Protein Albumin Globulin Albumin/Globulin Ratio Exam General appearance: alert, active, awake, no acute distress Eyes: normal exam ENT: normal exam, mucous membranes moist Neck: Soft and supple, trachea central, no lymphadenopathy Cardiovascular: regular rate & rhythm, normal peripheral pulses, S1-S2 heard Respiratory: clear to auscultation, normal breath sounds ABD: normal exam; soft and non tender, normoactive bowel sounds Neuro: alert, poultry 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 On examination of the left hand, left middle finger has swelling and erythema extending all the up to the base. There is a irregular unhealthy laceration measuring about 1.5-2 cm over the dorsal ulnar aspect of the distal intention ( DIP) joint. There is small amount of thin purulent discharge coming from the wound. There is an area of necrotic skin next to the laceration with a surrounding erythema. She is diffusely tender over the finger. Movements of the fingers are limited with pain. There is a few degrees of extension lag at the DIP joint. There is limited swelling and tenderness on the volar aspect. The flexor tendons appear to be uninvolved and Kanavel's sign is negative. No evidence of flexor tenosynovitis noted. The hand is warm and dry without any swelling, lacerations or lesions. She is fully sensate to light touch over the radial and ulnar borders as well as the volar aspect of the middle finger. Radial and ulnar pulses are 2+ bilaterally. Imaging: X-rays of her left hand [facility] reviewed along with radiologist report. There is diffuse soft tissue swelling involving the left middle finger. No evidence of any fracture or dislocation noted. No other acute findings seen. No soft tissue gas is seen. Progress Note: A&P (1) Cellulitis Status: Acute (2) Wound infection Status: Acute (3) Finger infection Status: Acute Assessment and Plan for All Diagnoses:: Patient was seen earlier by my partner Dr. Figueroa for orthopedic consultation. I am assuming her further orthopedic care and management as I am reconciliation analyst. I have explained the same to the patient and she is in agreement with this. I have reviewed the clinical and x-ray findings with the patient and her . I have discussed the diagnosis, natural history and management options in detail including both nonsurgical and surgical. Clinically she has infected laceration over the DIP joint of her left third finger with surrounding cellulitis. Clinically there is a high probability of involvement of the extensor tendon and even the joint itself. As the last is unhealthy with the spreading cellulitis and likely involvement of the joint, I have recommended surgical remediation in the form of wound debridement and washout. She is on IV antibiotics which was started on admission. I have discussed the procedure , risks and benefits and alternatives in detail. The complications discussed include but are not limited to injury to blood vessels, nerves, tendons and ligaments, bleeding, continued pain, adhesions, DVT/PE, finger stiffness, CRPS ( complex regional pain syndrome- pain, sensory and temperature changes, swelling and stiffness), painful scar, incomplete relief of pain, incomplete return of function and likely need for further surgery in future and also the risks of anesthesia including heart attack, stroke, and . I have discussed how there is a small but real possibility of loss of use of the arm, loss of the finger/hand or loss of life itself. I have also explained how additional surgery may be required if there are any complications or the condition fails to improve. I have told her that she may need multiple debridements and washouts depending on how it responds. I have also told there is a possibility of weakness, extensor lag, arthritis and permanent stiffness. We have also discussed the postoperative pain management, recovery and rehabilitation, the likely need for physical/hand therapy, the possibility of stiffness, chronic pain and we've also discussed the option of nonsurgical treatment. The patient expressed a full understanding and has asked appropriate questions. All her questions were answered by me and she verbalized a good understanding. She desires to proceed with the proposed surgery of wound debridement and washout of the middle finger laceration of her left hand. She has eaten lunch today and I have told her that the procedure will be done under local anesthesia with IV sedation. I have advised elevation, continuation of IV antibiotics, n.p.o. from now and an associated. I would like her to the OR at the earliest opportunity today. Medical management as per Dr. Dinero.
--- NOTE | 2017-10-08 16:37 | Operative Note ---
Date of procedure: 10/08/17 Pre-op Diagnosis:: Infected laceration, left middle finger Post-op Diagnosis:: Infected laceration, left middle finger Procedure performed:: Wound exploration, debridement and washout, left middle finger Surgeon:: Silvano Low MD Surgical Elastic Knitter Hand Frame(s):: Cheyanne Garland LABORER SYRUP MACHINE:: Sai Pulido Anesthesia: local, other (IV sedation) Estimated blood loss (mL): 2 Clinical Note:: Patient is a 57-year-old female who was admitted to hospital yesterday for management of infected left middle finger laceration. She sustained a laceration over the dorsal ulnar aspect of the her left middle finger about a week ago while washing dishes. She states states that a glass dish she was cleaning broke after hitting the side of bowl and she cut the finger on the sharp edge. She did not seek any medical attention initially and was treating it herself with peroxide and Neosporin. She states that she did not notice any significant swelling, redness or discharge until a couple of days ago. At that point she presented to the urgent treatment Center where she was diagnosed with infected laceration and was started on oral antibiotics. The next day she came back to the ER complaining of worsening pain, swelling and discharge from the wound. She is not getting any history of fevers, chills or rigors. Following assessment in the ER she was admitted to hospital for IV antibiotics and was started on ampicillin and vancomycin. She is nondiabetic and non-smoker. X- rays of her hand showed soft tissue swelling of the middle finger without any bony involvement. She was admitted for management of the same including IV antibiotics and surgical intervention as needed. Wound exploration, debridement and washout was indicated to treat the infection, assess the extent of injury to the deeper structures like the tendon on the joint and to improve the pain and function. It is clinically essential and is the standard of care for her management. Operative findings:: As noted in the preoperative note, there is a 1.5 cm unhealthy laceration over the dorsal ulnar border of the DIP joint of the left middle finger. There is extensive erythema and swelling of the finger. There is a few degrees of extension lag at the DIP joint. The laceration extends obliquely and is covered with slough and granulation tissue. After curetting out the slough and granulation tissue/debris, the extensor tendon is noted to be partially correct. Also there is a small opening in the distal interphalangeal joint capsule. Aerobic and anaerobic wound swabs were obtained for culture and sensitivity. Operative note:: On the day of the procedure the patient was met on the floor and I have discussed the diagnosis, natural history and management options in detail including both nonsurgical and surgical. Following admission yesterday, she was started on IV antibiotics but the finger continued to be swollen, painful with purulent discharge. The procedure of wound exploration, debridement and washout under local anesthesia with IV sedation was discussed with the patient. The complications discussed including but not limited to- infection, bleeding , injury to nerves, blood vessels, tendons, failure to eradicate the infection, incomplete recovery, persistent pain, finger stiffness, persistent extensor lag , arthritis of the DIP joint, CRPS, DVT/PE, likely need for further surgery and anesthetic complications including stroke, heart attack and even . Patient wished to proceed with the surgical intervention. All her questions were answered and she verbalized a good understanding. The limb was appropriately marked. Consent form was reviewed and signed. Patient understood the risks, agreed to proceed with surgery, signed the consent form and no guarantees or assurances were given or implied. Patient was brought to the operating room and placed supine on the operating table. The left upper extremity was placed over a hand table. All the bony prominences were appropriately padded. Intravenous sedation was administered by the emergency operator. A well-padded tourniquet cuff was placed over the left upper arm. The left upper extremity was prepped and draped in usual sterile fashion. A preprocedure timeout was performed as per protocol. The limb was elevated but not exsanguinated and tourniquet inflated to 250 mmHg. Please see nursing notes for total tourniquet time. I injected 10 cc of 0.5% plain Marcaine as a ring block at the base of the left middle finger. However, this failed to provide sufficient digital anesthesia. Therefore I have injected 5 cc of 1% lidocaine as well. This provided complete and satisfactory anesthesia of the finger. As noted in the preoperative note, there is a 1.5 cm unhealthy laceration over the dorsal ulnar border of the DIP joint of the left middle finger. The laceration extends obliquely and is covered with slough and granulation tissue. After thoroughly irrigating the laceration, I have curetted out the slough and granulation tissue/debris. I have obtained aerobic and anaerobic wound swabs for culture and sensitivity. The wound was again thoroughly irrigated with normal saline. On exploring the wound, I have noted that the extensor tendon is partially cut at the level of the DIP joint. Also noted is a small opening in the joint capsule. I have thoroughly irrigated/ washed out the DIP joint with copious amounts of normal saline. The wound was again thoroughly irrigated with normal saline. The tourniquet was released and hemostasis was confirmed. The wound cavity was packed with quarter inch iodoform gauze. The laceration was left un-sutured for drainage and to heal by secondary intention. Sterile dressings and pressure bandages were applied. Patient was transferred onto the bed and then safely transported to the postoperative recovery area in stable condition. She tolerated the procedure well and there were no immediate complications. The swab, needle and instrument counts were correct at the end of the procedure as per the scrub team. Postoperatively we will continue IV antibiotics and await culture results for any changes as needed. Patient was advised to keep the limb elevated and mobilize the fingers. Condition: stable Disposition: floor Specimens:: Aerobic and anaerobic wound swabs for culture and sensitivity Complications:: None
[2017-10-09 06:27] LABS: Basophils % 0.6 % (0.1-2.0); Eosinophils # 0.3 K/mm3 (0.0-0.4); Eosinophils % 5.7 % (0.1-12.0); Hemoglobin 11.1 g/dL (12.2-16.2); Lymphocytes # 1.3 K/mm3 (0.7-4.5); Lymphocytes % 23.5 K/mm3 (10-50); Mean Corpuscular HGB Conc 37.1 g/dL (31.8-35.4); Mean Corpuscular Hemoglobin 34.1 pg (27.0-31.2); Mean Corpuscular Volume 91.9 fl (81-99); Mean Platelet Volume 8.6 fl (7.4-10.4); Monocytes # 0.3 K/mm3 (0.1-1.0); Monocytes % 5.7 % (1.7-9.3); Neutrophils # 3.6 K/mm3 (1.8-7.8); Neutrophils % 64.4 % (37.0-80.0); Platelet Count 183 K/mm3 (142-424); Red Blood Count 3.26 M/mm3 (4.20-5.40); Red Cell Distribution Width 12.7 % (11.5-17.5); White Blood Count 5.5 K/mm3 (4.8-10.8)
[2017-10-09 06:35] LABS: Anion Gap 11.1 mEq/L (5-15); Calcium 8.4 mg/dL (8.5-10.1); Potassium 4.1 mmoL/L (3.5-5.1)
--- NOTE | 2017-10-09 08:06 | Progress Note ---
<Kandice Alicea - Last Filed: 10/09/17 08:03> Internal Medicine - PN: Subj *Date: 10/09/17 *Time: 08:03 Interval history: Had wound debridement and washout of left middle finger yesterday per Dr. Low. He states she slept at intervals. The finger does hurt. She denies chest pain and shortness of breath. She has been up to the band. She is getting ready to eat breakfast. Exam Vital signs and Labs for Last 24 Hours: Temp Pulse Resp BP Pulse Ox 98.0 F 94 H 20 127/69 98 10/09/17 07:56 10/09/17 07:56 10/09/17 07:56 10/09/17 07:56 10/09/17 07:56 Laboratory Results - last 24 hr 10/09/17 05:57: WBC 5.5, RBC 3.26 L, Hgb 11.1 L, Hct 30.0 L, MCV 91.9, MCH 34.1 H, MCHC 37.1 H, RDW 12.7, Plt Count 183, MPV 8.6, Neut % (Auto) 64.4, Lymph % ( Auto) 23.5, [place] % (Auto) 5.7, Eos % (Auto) 5.7, Baso % (Auto) 0.6, Neut # (Auto ) 3.6, Lymph # (Auto) 1.3, [place] # (Auto) 0.3, Eos # (Auto) 0.3, Baso # (Auto) 0.0 10/09/17 05:57: Sodium 143, Potassium 4.1 D, Chloride 109 H, Carbon Dioxide 27 , Anion Gap 11.1, BUN 10, Creatinine 1.31 H, Estimated Creat Clear 77, Estimated GFR 42 L, Est GFR ( Amer) 51 L, Glucose 102, Calcium 8.4 L I & O for Last 24 hours: Intake & Output 10/06/17 10/07/17 10/08/17 10/09/17 11:59 11:59 11:59 11:59 Intake Total 994 / 994 960 / 960 Output Total 400 / 400 Balance 994 / 994 560 / 560 Weight 223 lb Microbiology Reports for the Last 24 Hours: Microbiology 10/08/17 Unknown Finger,Left Middle Gram Stain - Final 10/08/17 Unknown Finger,Left Middle Wound Culture - Preliminary Narrative: Creatinine is 1.31. White blood cell count is normal today. No results for wound culture - Constitutional no acute distress - *Routine Respiratory Exam Present: CTA bilaterally - *Routine Cardiovascular Exam Present: RRR - *Routine Abdominal Exam Present: soft, normoactive bowel sounds. Absent: tenderness - *Routine Extremities Exam Absent: edema, calf tenderness Comments: Left finger dressing clean dry and intact - *Routine Neurological Exam Present: alert, oriented X3 Assessment and Plan (1) Cellulitis Current visit: Yes Status: Acute Qualifiers: Site of cellulitis: extremity Site of cellulitis of extremity: finger Laterality: left Qualified Code(s): L03.012 - Cellulitis of left finger Category: Medical Code(s): L03.90 - Cellulitis, unspecified (2) Wound infection Current visit: Yes Status: Acute Category: Medical Code(s): T14.8XXA - Other injury of unspecified body region, initial encounter; L08.9 - Local infection of the skin and subcutaneous tissue, unspecified (3) Finger infection Current visit: No Status: Acute Category: Medical Code(s): L08.9 - Local infection of the skin and subcutaneous tissue, unspecified - Assessment and plan all Dx Assessment and Plan for all problems:: Continue with IV antibiotics. <Tomasz Dinero - Last Filed: 10/09/17 08:44> Internal Medicine - PN: Subj *Date: 10/09/17 *Time: 08:44 Exam Vital signs and Labs for Last 24 Hours: Temp Pulse Resp BP Pulse Ox 98.0 F 94 H 20 127/69 98 10/09/17 07:56 10/09/17 07:56 10/09/17 07:56 10/09/17 07:56 10/09/17 07:56 Laboratory Results - last 24 hr 10/09/17 05:57: WBC 5.5, RBC 3.26 L, Hgb 11.1 L, Hct 30.0 L, MCV 91.9, MCH 34.1 H, MCHC 37.1 H, RDW 12.7, Plt Count 183, MPV 8.6, Neut % (Auto) 64.4, Lymph % ( Auto) 23.5, [place] % (Auto) 5.7, Eos % (Auto) 5.7, Baso % (Auto) 0.6, Neut # (Auto ) 3.6, Lymph # (Auto) 1.3, [place] # (Auto) 0.3, Eos # (Auto) 0.3, Baso # (Auto) 0.0 10/09/17 05:57: Sodium 143, Potassium 4.1 D, Chloride 109 H, Carbon Dioxide 27 , Anion Gap 11.1, BUN 10, Creatinine 1.31 H, Estimated Creat Clear 77, Estimated GFR 42 L, Est GFR ( Amer) 51 L, Glucose 102, Calcium 8.4 L I & O for Last 24 hours: Intake & Output 10/06/17 10/07/17 10/08/17 10/09/17 11:59 11:59 11:59 11:59 Intake Total 994 / 994 960 / 960 Output Total 400 / 400 Balance 994 / 994 560 / 560 Weight 223 lb Microbiology Reports for the Last 24 Hours: Microbiology 10/08/17 Unknown Finger,Left Middle Gram Stain - Final 10/08/17 Unknown Finger,Left Middle Wound Culture - Preliminary Assessment and Plan (1) Cellulitis Current visit: Yes Status: Acute Qualifiers: Site of cellulitis: extremity Site of cellulitis of extremity: finger Laterality: left Qualified Code(s): L03.012 - Cellulitis of left finger Category: Medical Code(s): L03.90 - Cellulitis, unspecified (2) Wound infection Current visit: Yes Status: Acute Category: Medical Code(s): T14.8XXA - Other injury of unspecified body region, initial encounter; L08.9 - Local infection of the skin and subcutaneous tissue, unspecified (3) Finger infection Current visit: No Status: Acute Category: Medical Code(s): L08.9 - Local infection of the skin and subcutaneous tissue, unspecified - Assessment and plan all Dx Assessment and Plan for all problems:: Saw patient, agree with above note.
--- NOTE | 2017-10-09 15:28 | Pharmacy Consult Notes ---
- Pharmacy Consult Date: 10/09/17 Time: 15:20 Referring provider: DR. CLARK Reason for Consult:: VANCOMYCIN LEVEL AND DOSE CHANGE Allergies and ADEs:: Allergies Allergy/AdvReac Type Severity Reaction Status Date / Time No Known Drug Allergies Allergy Unknown Verified 10/06/17 12:29 [NO KNOWN DRUG ALLERGIES] Home Medications:: Home Medications Medication Instructions Recorded Confirmed Type Albuterol Sulfate [Albuterol HFA 2 puff INHALATION Q4-6H PRN 10/07/17 10/08/17 History Inhaler] Celecoxib 200 mg PO BID 10/07/17 10/08/17 History Cyclobenzaprine HCl [Flexeril 10mg 10 mg PO DAILY 10/07/17 10/07/17 History tablet] Duloxetine HCl 60 mg PO BID 10/07/17 10/07/17 History Gabapentin [Neurontin 600mg 1,200 mg PO TID 10/07/17 10/08/17 History tablet] Montelukast Sodium [Singulair 10mg 10 mg PO HS 10/07/17 10/08/17 History tablet] Sulfamethoxazole/Trimethoprim 1 each PO BID 10/07/17 10/07/17 History [Bactrim DS tablet] Trazodone HCl 50 mg PO HS 10/07/17 10/08/17 History cephALEXin [Keflex 500mg Cap] 500 mg PO Q6H 10/07/17 10/07/17 History Ropinirole HCl [Requip] 0.5 mg PO HS 10/08/17 10/08/17 History Tramadol HCl [Ultram 50mg 50 mg PO TID 10/08/17 10/08/17 History tablet] Height: 1.63 m Weight: 101.151 kg Laboratory Results:: Laboratory Results - last 24 hr 10/09/17 05:57: WBC 5.5, RBC 3.26 L, Hgb 11.1 L, Hct 30.0 L, MCV 91.9, MCH 34.1 H, MCHC 37.1 H, RDW 12.7, Plt Count 183, MPV 8.6, Neut % (Auto) 64.4, Lymph % ( Auto) 23.5, [place] % (Auto) 5.7, Eos % (Auto) 5.7, Baso % (Auto) 0.6, Neut # (Auto ) 3.6, Lymph # (Auto) 1.3, [place] # (Auto) 0.3, Eos # (Auto) 0.3, Baso # (Auto) 0.0 10/09/17 05:57: Sodium 143, Potassium 4.1 D, Chloride 109 H, Carbon Dioxide 27 , Anion Gap 11.1, BUN 10, Creatinine 1.31 H, Estimated Creat Clear 77, Estimated GFR 42 L, Est GFR ( Amer) 51 L, Glucose 102, Calcium 8.4 L 10/09/17 14:30: Vancomycin Trough 8.5 L Medical History: Reports:: Asthma, Cancer, Gastroesophageal Reflux Disease(GERD) , Hypertension Denies:: Chronic Obstructive Pulmonary Disease (COPD), Coronary Artery Disease, Diabetes Mellitus Type 1, Diabetes Mellitus Type 2, MRSA, Seizures Assessment and Plan (1) Wound infection Current visit: Yes Status: Acute Category: Medical Code(s): T14.8XXA - Other injury of unspecified body region, initial encounter; L08.9 - Local infection of the skin and subcutaneous tissue, unspecified (2) Finger infection Current visit: No Status: Acute Category: Medical Code(s): L08.9 - Local infection of the skin and subcutaneous tissue, unspecified - Assessment and plan all Dx Assessment and Plan for all problems:: BASED ON PATIENT'S VANCOMYCIN TROUGH LEVEL OF 8.5 MCG/ML, RECOMMEND CHANGING VANCOMYCIN DOSE TO 2000 MG Q24H. PHARMACY WILL FOLLOW DAILY AND ADJUST APPROPRIATE. MACI SILVA, KALYND
[2017-10-09 16:06] VITALS: BP 130/66
--- NOTE | 2017-10-09 20:22 | Progress Note ---
Subjective Date: 10/09/17 Time: 04:15 Principal diagnosis: Infected laceration, left middle finger Interval history: Status post surgical debridement of infected laceration, left middle finger, postop day 1. Patient says she is doing well and reports improvement with her pain. No history of any fevers, chills or rigors. She is eating and drinking well. She is on IV antibiotics. PN: Obj Ex Vital signs: Temp Pulse Resp BP Pulse Ox 98.5 F 84 18 130/66 97 10/09/17 16:00 10/09/17 16:00 10/09/17 16:00 10/09/17 16:00 10/09/17 16:00 Narrative: Laboratory Results - last 24 hr 10/09/17 05:57: WBC 5.5, RBC 3.26 L, Hgb 11.1 L, Hct 30.0 L, MCV 91.9, MCH 34.1 H, MCHC 37.1 H, RDW 12.7, Plt Count 183, MPV 8.6, Neut % (Auto) 64.4, Lymph % ( Auto) 23.5, [place] % (Auto) 5.7, Eos % (Auto) 5.7, Baso % (Auto) 0.6, Neut # (Auto ) 3.6, Lymph # (Auto) 1.3, [place] # (Auto) 0.3, Eos # (Auto) 0.3, Baso # (Auto) 0.0 10/09/17 05:57: Sodium 143, Potassium 4.1 D, Chloride 109 H, Carbon Dioxide 27 , Anion Gap 11.1, BUN 10, Creatinine 1.31 H, Estimated Creat Clear 77, Estimated GFR 42 L, Est GFR ( Amer) 51 L, Glucose 102, Calcium 8.4 L 10/09/17 14:30: Vancomycin Trough 8.5 L Exam: General appearance: alert, active, awake, no acute distress Cardiovascular: regular rate & rhythm, normal peripheral pulses, Respiratory: clear to auscultation, normal breath sounds ABD: normal exam; soft and non tender Neuro: alert, no deficit, oriented x 3 Psych: normal mood and affect On examination of the hand, the dressings over the middle finger are clean dry and intact. I have changed the dressings today and the wound looks a lot better compared to how it was preoperatively. There is very little discharge and healthy granulation tissue noted. There is slight extension lag at the PIP joint. There is still significant finger swelling, erythema and tenderness. Distal sensation is intact light touch throughout. Progress Note: A&P (1) Wound infection Status: Acute (2) Finger infection Status: Acute Assessment and Plan for All Diagnoses:: Post op plan I reviewed the clinical and operative findings, procedure performed and progress with the patient and her . Patient is doing well and reports no postoperative problems. The wound looks healthy compared to how it was before surgery. I have applied a nonadherent dressing. Encouraged her to keep the hand elevated, mobilize the fingers, take as needed pain medication and continuation of IV antibiotics. Patient can be discharged home with oral antibiotics if appropriate from a medical standpoint. I have discussed about her progress with Dr. Dinero. Follow-up in my office in 2-3 days time for dressing changes. Medical management as per Dr. Dinero.
--- NOTE | 2017-10-10 22:04 | Discharge Summary ---
General - General Admission date:: 10/07/17 Discharge date: 10/09/17 HPI HPI: Ms. Cardona is a 57-year-old female who presented to [facility] emergency room with increased edema of the left middle finger. She describes cutting her finger when washing the dishes about a week ago. She states she did not notice an infection until 10/05/2017. She did go to urgent treatment center at which time she placed on Bactrim and Keflex. Yesterday the edema was worse and she decided to come to the emergency room. She also describes edema of the hand. She denies having a fever. She was evaluated in the emergency room and admitted for IV antibiotics. She also has an orthopedic consult. She feels that the swelling has improved overnight. Hospital Course Hospital Course: The patient's x-ray showed soft tissue swelling of the third finger but was otherwise negative. She was started on IV abx. She was seen by Dr. Low who performed a wound exploration, debridement, and washout. Her pain and swelling did improve and she was stable to be discharged home on bactrim and clindamycin. Cultures are still pending. She will f/u with Dr. Low. Objective Vital signs: Temp Pulse Resp BP Pulse Ox 98.5 F 84 18 130/66 97 10/09/17 16:00 10/09/17 16:00 10/09/17 16:00 10/09/17 16:00 10/09/17 16:00 Narrative: - Constitutional no acute distress Comments: SITTING UP IN THE BED AND APPEARS COMFORTABLE - *Routine HEENT Exam Head: Present: normocephalic, atraumatic Eye: Present: PERRL. Absent: conjunctival icterus, scleral injection ENT: Present: mucous membranes moist, oropharynx clear - *Routine Neck Exam Present: supple. Absent: carotid bruit, thyromegaly - *Routine Respiratory Exam Present: CTA bilaterally (A&P) - *Routine Cardiovascular Exam Present: RRR - *Routine Abdominal Exam Present: normoactive bowel sounds. Absent: tenderness - *Routine Extremities Exam Absent: calf tenderness Comments: left middle finger with discoloration and edema with limited ROM; some edema of the dorsal aspect of the left had; no erythema of the hand no leg edema - *Routine Neurological Exam Present: alert, oriented X3 Results Labs on day of discharge: Preliminary micro results at discharge 10/08/17 Unknown Wound Culture - Preliminary Finger,Left Middle Gram Positive Cocci 10/07/17 14:20 Blood Culture - Preliminary Blood NO GROWTH AFTER 48 HOURS 10/07/17 14:20 Blood Culture - Preliminary Blood NO GROWTH AFTER 48 HOURS DS: Diagnosis - Discharge Diagnosis (1) Wound infection Status: Acute (2) Finger infection Status: Acute Discharge Plan - Patient Discharge Instructions ACTIVITY: Continue current activity DIET: continue same diet Patient Instructions: DI for Incision and Drainage of a Skin Abscess, DI for Bone and Joint Infections - Follow up Plan Follow up with: Afua Hurley [Primary Care Provider] - 2 weeks Silvano Low MD [Staff Physician] - 10/12/17 Disposition: Home, Self-Halfway Medications: Home Medications Medication Instructions Recorded Confirmed Type Albuterol Sulfate [Albuterol HFA 2 puff INHALATION Q4-6H PRN 10/07/17 10/08/17 History Inhaler] Celecoxib 200 mg PO BID 10/07/17 10/08/17 History Cyclobenzaprine HCl [Flexeril 10mg 10 mg PO DAILY 10/07/17 10/07/17 History tablet] Duloxetine HCl 60 mg PO BID 10/07/17 10/07/17 History Gabapentin [Neurontin 600mg 1,200 mg PO TID 10/07/17 10/08/17 History tablet] Montelukast Sodium [Singulair 10mg 10 mg PO HS 10/07/17 10/08/17 History tablet] Sulfamethoxazole/Trimethoprim 1 each PO BID 10/07/17 10/07/17 History [Bactrim DS tablet] Trazodone HCl 50 mg PO HS 10/07/17 10/08/17 History Ropinirole HCl [Requip] 0.5 mg PO HS 10/08/17 10/08/17 History Tramadol HCl [Ultram 50mg 50 mg PO TID 10/08/17 10/08/17 History tablet] Prescriptions/Medication Reconciliation: New Bacillus Coagulans [Probiotic] 1 each PO DAILY 30 Days capsule. Clindamycin HCl 300 mg PO TID #42 cap Continue Trazodone HCl 50 mg PO HS Gabapentin [Neurontin 600mg tablet] 1,200 mg PO TID Duloxetine HCl 60 mg PO BID Cyclobenzaprine HCl [Flexeril 10mg tablet] 10 mg PO DAILY Celecoxib 200 mg PO BID Albuterol Sulfate [Albuterol HFA Inhaler] 2 puff INHALATION Q4-6H PRN PRN Reason: Shortness Of Breath Sulfamethoxazole/Trimethoprim [Bactrim DS tablet] 1 each PO BID Tramadol HCl [Ultram 50mg tablet] 50 mg PO TID Ropinirole HCl [Requip] 0.5 mg PO HS Montelukast Sodium [Singulair 10mg tablet] 10 mg PO HS Discontinued cephALEXin [Keflex 500mg Cap] 500 mg PO Q6H
== END 2017-10-09 18:48 | disposition home or self-care (01) ==
LOC: 2ND 13:40 → ER 13:40 → OBSVTOIN 17:40 → 2ND 17:42
PROVIDERS: ADMIT Family Medicine; ATTEND Family Medicine

== ENCOUNTER → 2017-11-13 10:15 | Outpatient (CLI) | payer BC, SELFPAY ==
--- NOTE | 2017-11-13 10:19 | MM_ITS ---
MM Dig screening mamm BI w/CAD ORDERING PHYSICIAN : Afua Hurley PATIENT AGE: 57 years GENDER: Female COMPARISON: September 2012, February 2015, May 2016. INDICATION: ITS.REASON: SCREENING no hormones. No new complaints. Family history.: Mother and grandmother with breast cancer TECHNIQUE: Standard CC and MLO images were obtained. R2 CAD reviewed. FINDINGS: Mild to moderate residual fibroglandular elements. No significant new areas of concern. No dominant mass nor suspicious calcifications in either breast. Bilateral follow-up in one year adequate.: . stable benign areas of what appear to be skin calcifications at the medial left breast and right breast IMPRESSION: Stable bilateral mammogram with no significant new findings Recommend and would encourage/emphasized annual screening mammography in this patient in view of positive family history BI-RADS Category: 2 Benign Finding(s) RECOMMENDED FOLLOW-UP: 1YR 1 YEAR FOLLOW-UP (A letter has been sent to the patient regarding results of the study.)
== END ==
PROVIDERS: Family Provider Family Medicine; PCP Family Medicine; Visit Provider Family Medicine
DX: Z12.31 Encounter for screening mammogram for malignant neoplasm of breast (principal)
CPT/HCPCS: 77067

== ENCOUNTER → 2017-12-12 13:35 | Outpatient (CLI) | payer BC, SELFPAY ==
--- NOTE | 2017-12-12 13:38 | XR_ITS ---
XR finger LT min 2V CLINICAL INDICATION: Follow-up surgery, pain and swelling, prior laceration ITS.REASON: sp left middle finger wash out sx 10/07/17 ORDERING PHYSICIAN: Silvano Low MD PATIENT AGE: 57 years Comparison: None FINDINGS: There is a small area of cortical lucency involving the distal aspect of the middle phalanx of the third digit not readily apparent on the previous exam. As could represent a fracture which was occult at that point in time. A small area of bony erosive change such as osteomyelitis is an additional consideration. No radio opaque foreign bodies or soft tissue gas evident. IMPRESSION: Small cortical lucency along the distal aspect of the middle phalanx of the third finger near the joint space which could be due to an occult fracture which is manifested or an area of cortical erosion from osteomyelitis
== END ==
PROVIDERS: PCP Family Medicine; Visit Provider Orthopaedic Surgery
DX: Z47.89 Encounter for other orthopedic aftercare (principal)
CPT/HCPCS: 73140

== ENCOUNTER → 2017-12-12 15:14 | Outpatient (CLI) | payer BC, SELFPAY ==
[2017-12-12 15:36] LABS: Basophils # 0.1 K/mm3 (0-0.2); Basophils % 0.8 % (0.1-2.0); Eosinophils # 0.6 K/mm3 (0.0-0.4); Eosinophils % 10.1 % (0.1-12.0); Hematocrit 41.6 % (37.0-47.0); Hemoglobin 13.5 g/dL (12.2-16.2); Lymphocytes # 1.5 K/mm3 (0.7-4.5); Mean Corpuscular HGB Conc 32.4 g/dL (31.8-35.4); Mean Corpuscular Hemoglobin 29.8 pg (27.0-31.2); Mean Corpuscular Volume 92.1 fl (81-99); Mean Platelet Volume 7.9 fl (7.4-10.4); Monocytes # 0.4 K/mm3 (0.1-1.0); Monocytes % 6.2 % (1.7-9.3); Neutrophils # 3.5 K/mm3 (1.8-7.8); Neutrophils % 57.9 % (37.0-80.0); Platelet Count 235 K/mm3 (142-424); Red Blood Count 4.52 M/mm3 (4.20-5.40); Red Cell Distribution Width 13.5 % (11.5-17.5)
[2017-12-12 16:44] LABS: Erythrocyte Sedimentation Rate 14 mm/hr (0-30)
[2017-12-12 17:54] LABS: C-Reactive Protein 0.2 mg/L (0.0-0.9)
== END ==
PROVIDERS: PCP Family Medicine; Visit Provider Orthopaedic Surgery
DX: L08.9 Local infection of the skin and subcutaneous tissue, unspecified (principal)
CPT/HCPCS: 36415; 85025; 85651; 86140

== ENCOUNTER → 2017-12-24 10:59 | Outpatient (CLI) | payer BC, SELFPAY ==
[2017-12-24 12:22] LABS: Blood Urea Nitrogen 16 mg/dL (7-18); Creatinine,Serum 1.09 mg/dL (0.55-1.02); Estimated Glomerular Filt Rate 52 ml/min (>60); GFR (African American) 63 ML/MIN (>60)
== END ==
PROVIDERS: PCP Family Medicine; Visit Provider Orthopaedic Surgery
DX: M86.9 Osteomyelitis, unspecified (principal); L08.9 Local infection of the skin and subcutaneous tissue, unspecified; S61.219D Laceration without foreign body of unspecified finger without damage to nail, subsequent encounter
CPT/HCPCS: 36415; 82565; 84520

== ENCOUNTER → 2017-12-25 08:52 | Outpatient (CLI) | payer BC, SELFPAY ==
--- NOTE | 2017-12-25 08:55 | MR_ITS ---
MR hand LT wo/w con HISTORY: Pain and swelling left middle finger, prior injury with infection with redness ITS.REASON: osteomyelitis of LT middle finger ORDERING PHYSICIAN: Silvaon Low MD PATIENT AGE: 57 years Comparison: 10/07/2018 TECHNIQUE: Standard multiplanar multiecho sequences are performed without and with gadolinium enhancement. FINDINGS: There is decrease T1 and increased T2 signal involving the distal phalanx of the third digit with some enhancement of the distal phalanx. In addition, there is decrease T1 with slight increased T2 and some mild enhancement of the distal aspect of the middle phalanx of the third digit. These findings are consistent with osteomyelitis with the distal phalanx and also possibly of the distal aspect of the middle phalanx. No abscess is evident. There is increased T2 signal surrounding the distal phalanx deep to the fibrous digital sheath consistent with cellulitis. No definite abscess. No fluid evident within the DIP joint. IMPRESSION: 1. The findings are consistent with osteomyelitis of the distal phalanx of the middle finger with surrounding cellulitis. No definite abscess. 2. There is also slight signal alteration of the distal aspect of the middle phalanx which could be related to reactive edema or mild osteomyelitis. 3. No evidence of fluid within the DIP joint
--- NOTE | 2017-12-25 10:09 | HMH.ITSHM ---
celebrex deluxacam gabapentin tramadol requip trazadone flexeril ventolin
== END ==
PROVIDERS: Family Provider Family Medicine; PCP Family Medicine; Visit Provider Orthopaedic Surgery
DX: L08.9 Local infection of the skin and subcutaneous tissue, unspecified (principal); M86.9 Osteomyelitis, unspecified; S61.219A Laceration without foreign body of unspecified finger without damage to nail, initial encounter
CPT/HCPCS: 73220; A9576

== ENCOUNTER → 2018-01-01 16:01 | Outpatient (CLI) | payer BC, SELFPAY ==
[2018-01-01 16:25] LABS: Basophils % 0.8 % (0.1-2.0); Eosinophils # 0.2 K/mm3 (0.0-0.4); Eosinophils % 4.5 % (0.1-12.0); Hematocrit 41.4 % (37.0-47.0); Hemoglobin 13.6 g/dL (12.2-16.2); Lymphocytes # 1.3 K/mm3 (0.7-4.5); Lymphocytes % 24.3 K/mm3 (10-50); Mean Corpuscular HGB Conc 32.8 g/dL (31.8-35.4); Mean Corpuscular Volume 91.3 fl (81-99); Mean Platelet Volume 8.3 fl (7.4-10.4); Monocytes # 0.3 K/mm3 (0.1-1.0); Monocytes % 5.4 % (1.7-9.3); Neutrophils # 3.5 K/mm3 (1.8-7.8); Neutrophils % 65.1 % (37.0-80.0); Platelet Count 240 K/mm3 (142-424); Red Blood Count 4.54 M/mm3 (4.20-5.40); Red Cell Distribution Width 13.2 % (11.5-17.5); White Blood Count 5.3 K/mm3 (4.8-10.8)
[2018-01-01 17:24] LABS: Erythrocyte Sedimentation Rate 11 mm/hr (0-30)
[2018-01-01 18:00] LABS: C-Reactive Protein < 0.2 mg/L (0.0-0.9)
== END ==
PROVIDERS: PCP Family Medicine; Visit Provider Orthopaedic Surgery
DX: L08.9 Local infection of the skin and subcutaneous tissue, unspecified (principal)
CPT/HCPCS: 36415; 85025; 85651; 86140

== ENCOUNTER → 2018-01-31 09:50 | Outpatient (CLI) | payer BC, SELFPAY ==
--- NOTE | 2018-01-31 09:56 | XR_ITS ---
XR finger LT min 2V CLINICAL INDICATION: Follow-up osteomyelitis/septic joint ITS.REASON: LT MIDDLE FINGER ORDERING PHYSICIAN: Silvano Low MD PATIENT AGE: 57 years Comparison: 12/12/2017 FINDINGS: A cortical erosion is once again noted involving the distal and dorsal aspect of the middle phalanx appears slightly more prominent on today's exam. On the lateral view lucency is noted at the distal aspect of the middle phalanx of the middle finger. There is decrease in the joint space at the DIP increased cortical lucencies are present at the joint space. IMPRESSION: Radiographically, the findings appear slightly worse with lucencies at the interphalangeal joint of the third digit consistent with osteomyelitis with septic joint
[2018-01-31 10:21] LABS: Basophils # 0.1 K/mm3 (0-0.2); Basophils % 0.8 % (0.1-2.0); Eosinophils # 0.3 K/mm3 (0.0-0.4); Eosinophils % 4.1 % (0.1-12.0); Hemoglobin 13.3 g/dL (12.2-16.2); Lymphocytes # 1.7 K/mm3 (0.7-4.5); Lymphocytes % 26.4 K/mm3 (10-50); Mean Corpuscular HGB Conc 33.3 g/dL (31.8-35.4); Mean Corpuscular Hemoglobin 30.2 pg (27.0-31.2); Mean Corpuscular Volume 90.4 fl (81-99); Mean Platelet Volume 7.6 fl (7.4-10.4); Monocytes # 0.3 K/mm3 (0.1-1.0); Monocytes % 4.3 % (1.7-9.3); Neutrophils # 4.3 K/mm3 (1.8-7.8); Neutrophils % 64.5 % (37.0-80.0); Platelet Count 271 K/mm3 (142-424); Red Blood Count 4.42 M/mm3 (4.20-5.40); White Blood Count 6.6 K/mm3 (4.8-10.8)
[2018-01-31 10:57] LABS: C-Reactive Protein < 0.2 mg/L (0.0-0.9)
[2018-01-31 12:04] LABS: Alanine Aminotransferase 29 U/L (12-78); Albumin Level 3.8 gm/dL (3.4-5.0); Albumin/Globulin Ratio 1.2 (1.1-1.8); Alkaline Phosphatase 78 U/L (46-116); Aspartate Amino Transferase 23 U/L (15-37); Bilirubin,Total 0.3 mg/dL (0.2-1.0); Blood Urea Nitrogen 16 mg/dL (7-18); Calcium 9.1 mg/dL (8.5-10.1); Carbon Dioxide 26 mmol/L (21.0-32.0); Chloride 106 mmol/L (98-107); Creatinine,Serum 1.13 mg/dL (0.55-1.02); Estimated Glomerular Filt Rate 50 ml/min (>60); GFR (African American) 60 ML/MIN (>60); Globulin 3.1 gm/dl (1.3-3.2); Glucose 94 mg/dL (74-106); Sodium 143 mmol/L (136-145); Total Protein,Serum 6.9 gm/dL (6.4-8.2)
[2018-01-31 12:09] LABS: Erythrocyte Sedimentation Rate 24 mm/hr (0-30)
== END ==
PROVIDERS: PCP Family Medicine; Visit Provider Orthopaedic Surgery
DX: L08.9 Local infection of the skin and subcutaneous tissue, unspecified (principal); M86.9 Osteomyelitis, unspecified; S61.219A Laceration without foreign body of unspecified finger without damage to nail, initial encounter
CPT/HCPCS: 36415; 73140; 80053; 85025; 85651; 86140

== ENCOUNTER → 2018-02-21 09:32 | Outpatient (CLI) | payer BC, SELFPAY ==
--- NOTE | 2018-02-21 09:40 | XR_ITS ---
XR finger LT min 2V CLINICAL INDICATION: Follow-up osteomyelitis, septic joint ITS.REASON: lt middle finger wash out post op dos 10/07/17 ORDERING PHYSICIAN: Silvano Low MD PATIENT AGE: 57 years Comparison: 01/31/2018 FINDINGS: Cortical erosion once again noted involving the distal and dorsal aspect of the middle phalanx along with lucent changes of the DIP joint and decrease in the joint space. This is not significantly changed. No new areas of bony erosion. IMPRESSION: 1. Overall no change in the lucencies at the appendectomy joint and dorsal aspect of the distal radius consistent with osteomyelitis and septic joint.
[2018-02-21 10:42] LABS: C-Reactive Protein 0.2 mg/L (0.0-0.9)
[2018-02-21 11:35] LABS: Basophils # 0.1 K/mm3 (0-0.2); Basophils % 1.2 % (0.1-2.0); Eosinophils # 1.6 K/mm3 (0.0-0.4); Eosinophils % 26.9 % (0.1-12.0); Hematocrit 38.3 % (37.0-47.0); Hemoglobin 12.7 g/dL (12.2-16.2); Lymphocytes # 1.5 K/mm3 (0.7-4.5); Lymphocytes % 24.1 % (10-50); Mean Corpuscular HGB Conc 33.1 g/dL (31.8-35.4); Mean Corpuscular Hemoglobin 30.4 pg (27.0-31.2); Mean Corpuscular Volume 91.6 fl (81-99); Mean Platelet Volume 9.3 fl (7.4-10.4); Monocytes # 0.3 K/mm3 (0.1-1.0); Monocytes % 5.1 % (1.7-9.3); Neutrophils # 2.6 K/mm3 (1.8-7.8); Neutrophils % 42.7 % (37.0-80.0); Platelet Count 224 K/mm3 (142-424); Red Blood Count 4.18 M/mm3 (4.20-5.40); Red Cell Distribution Width 13.4 % (11.5-17.5); White Blood Count 6.1 K/mm3 (4.8-10.8)
[2018-02-21 14:42] LABS: Erythrocyte Sedimentation Rate 18 mm/hr (0-30)
== END ==
PROVIDERS: Visit Provider Orthopaedic Surgery
DX: L08.9 Local infection of the skin and subcutaneous tissue, unspecified (principal); S61.219A Laceration without foreign body of unspecified finger without damage to nail, initial encounter; M86.9 Osteomyelitis, unspecified
CPT/HCPCS: 36415; 73140; 85025; 85651; 86140

== ENCOUNTER → 2018-03-14 12:06 | Outpatient (CLI) | payer BC, SELFPAY ==
--- NOTE | 2018-03-14 12:25 | XR_ITS ---
XR finger LT min 2V CLINICAL INDICATION: Follow-up osteomyelitis, septic joint, pain ITS.REASON: LT middle finger ORDERING PHYSICIAN: Silvano Low MD PATIENT AGE: 57 years Comparison: 02/21/2018 FINDINGS: Cortical erosions once again noted at the DIP joint of the third finger at the distal aspect of the middle phalanx and the proximal aspect of the distal phalanx. The erosions however appears somewhat better circumscribed and somewhat less apparent at least at the distal aspect of the middle phalanx and may represent early healing. Joint space remains narrowed. IMPRESSION: There is suggestion of some improvement in the cortical erosions at the DIP joint of the finger which may indicate improvement in osteomyelitis and septic joint
[2018-03-14 12:39] LABS: Basophils % 0.8 % (0.1-2.0); Eosinophils # 0.3 K/mm3 (0.0-0.4); Eosinophils % 7.8 % (0.1-12.0); Hematocrit 40.2 % (37.0-47.0); Hemoglobin 13.2 g/dL (12.2-16.2); Lymphocytes % 23.3 % (10-50); Mean Corpuscular HGB Conc 32.8 g/dL (31.8-35.4); Mean Corpuscular Hemoglobin 30.2 pg (27.0-31.2); Mean Corpuscular Volume 92.2 fl (81-99); Mean Platelet Volume 7.5 fl (7.4-10.4); Monocytes # 0.2 K/mm3 (0.1-1.0); Monocytes % 4.7 % (1.7-9.3); Neutrophils # 2.8 K/mm3 (1.8-7.8); Neutrophils % 63.3 % (37.0-80.0); Platelet Count 226 K/mm3 (142-424); Red Blood Count 4.36 M/mm3 (4.20-5.40); Red Cell Distribution Width 13.5 % (11.5-17.5); White Blood Count 4.4 K/mm3 (4.8-10.8)
[2018-03-14 13:17] LABS: Erythrocyte Sedimentation Rate 17 mm/hr (0-30)
[2018-03-14 14:15] LABS: C-Reactive Protein 0.3 mg/L (0.0-0.9)
== END ==
PROVIDERS: Visit Provider Orthopaedic Surgery
DX: M86.9 Osteomyelitis, unspecified (principal)
CPT/HCPCS: 36415; 73140; 85025; 85651; 86140

== ENCOUNTER → 2018-04-15 13:59 | Outpatient (CLI) | payer BC, SELFPAY ==
--- NOTE | 2018-04-15 14:05 | XR_ITS ---
XR finger LT min 2V CLINICAL INDICATION: Follow-up debridement/osteomyelitis ITS.REASON: LT middle digit; washout debriedment 10/07/17 ORDERING PHYSICIAN: Silvano Low MD PATIENT AGE: 57 years Comparison: 03/14/2018 FINDINGS: No significant change in the joint space narrowing with subchondral lucencies involving the periarticular region of the DIP joint of the middle finger. No new lytic process evident. IMPRESSION: Stable appearance of the DIP joint of the third finger with persistent joint space narrowing and subchondral lucencies
[2018-04-15 14:42] LABS: Basophils # 0.1 K/mm3 (0-0.2); Eosinophils # 0.6 K/mm3 (0.0-0.4); Eosinophils % 8.3 % (0.1-12.0); Hematocrit 42.6 % (37.0-47.0); Lymphocytes # 1.6 K/mm3 (0.7-4.5); Lymphocytes % 22.8 % (10-50); Mean Corpuscular HGB Conc 32.8 g/dL (31.8-35.4); Mean Corpuscular Volume 91.4 fl (81-99); Mean Platelet Volume 7.5 fl (7.4-10.4); Monocytes # 0.3 K/mm3 (0.1-1.0); Neutrophils # 4.4 K/mm3 (1.8-7.8); Neutrophils % 63.9 % (37.0-80.0); Platelet Count 264 K/mm3 (142-424); Red Blood Count 4.66 M/mm3 (4.20-5.40); Red Cell Distribution Width 13.3 % (11.5-17.5); White Blood Count 6.9 K/mm3 (4.8-10.8)
[2018-04-15 14:51] LABS: C-Reactive Protein < 0.2 mg/L (0.0-0.9)
[2018-04-15 15:19] LABS: Erythrocyte Sedimentation Rate 16 mm/hr (0-30)
== END ==
PROVIDERS: Visit Provider Orthopaedic Surgery
DX: Z47.89 Encounter for other orthopedic aftercare (principal); M86.9 Osteomyelitis, unspecified
CPT/HCPCS: 36415; 73140; 85025; 85651; 86140

== ENCOUNTER → 2018-04-29 14:15 | Outpatient (POV) | payer BC, SELFPAY ==
[2018-04-29 14:24] VITALS: BP 134/76; PULSE 102; RESP 18; O2SAT 99; BMI 39.4
--- NOTE | 2018-04-29 15:26 | HMH.PAINSOAP ---
[facility] Pain Management SOAP Note Subjective:: Patient is a pleasant 58-year-old white female who presents today for follow-up. Patient was previously treated in our pain clinic however she has not been here in a little over a year due to an infection that she had within the bone of her finger. Patient is now off antibiotics. She was being managed by Dr. Low. She has had surgery for a thoracic tumor. Most of her pain today is in her low back. Patient states that twisting movements make it worse. Patient does have facet pathology on her MRI. Patient states that it does not radiate. ROS General: no recent weight change, no fever, no sleep disturbances Respiratory: no cough, no shortness of air, no recurring pulmonary infections Cardiovascular/Peripheral Vascular: No chest pain, No palpitations, no edema, no shortness of breath. Gastrointestinal: no incontinence, normal bowel movements reported Genitourinary: no incontinence Musculoskeletal: Back pain Psychiatric: normal mood/ affect, Neurological: [denies weakness in extremities], [denies balance issues] Objective:: Physical Exam General: Alert and oriented x3, no acute distress, pleasant and cooperative, [on room air] Lungs: Resps E/U, Symmetrical chest expansion, Eyes: PERRL Musculoskeletal: Flexion and extension of lumbar spine somewhat guarded secondary to pain, deep tendon reflexes normal, strength in upper and lower extremities [5/5], slightly antalgic gait noted, positive Kemps test bilateral lumbar spine, positive facet loading lumbar spine Neurological: speech clear, button tufter equal, no gross sensory deficits Assessment:: Degenerative disc disease lumbar spine with lumbar radiculopathy, sacroiliitis, lumbar spondylosis, facet arthropathy Plan:: We will schedule an L3-L4 L4-L5 L5-S1 bilateral medial branch block/facet joint injection for the patient. She is not on any anticoagulation. Patient is continuing a home stretching program. We will have permission from Dr. Low prior to her injection to the ensure that she can have it. I will follow-up with the patient after her injection and reassess her symptoms at that time. Dr. Ramos has reviewed this note and agrees with this plan of care. This note was dictated using voice recognition software and may contain errors or omissions
--- NOTE | 2018-04-29 15:29 | P.CONS_ITS ---
[facility] Pain Management SOAP Note Subjective:: Patient is a pleasant 58-year-old white female who presents today for follow-up. Patient was previously treated in our pain clinic however she has not been here in a little over a year due to an infection that she had within the bone of her finger. Patient is now off antibiotics. She was being managed by Dr. Low. She has had surgery for a thoracic tumor. Most of her pain today is in her low back. Patient states that twisting movements make it worse. Patient does have facet pathology on her MRI. Patient states that it does not radiate. ROS General: no recent weight change, no fever, no sleep disturbances Respiratory: no cough, no shortness of air, no recurring pulmonary infections Cardiovascular/Peripheral Vascular: No chest pain, No palpitations, no edema, no shortness of breath. Gastrointestinal: no incontinence, normal bowel movements reported Genitourinary: no incontinence Musculoskeletal: Back pain Psychiatric: normal mood/ affect, Neurological: [denies weakness in extremities], [denies balance issues] Objective:: Physical Exam General: Alert and oriented x3, no acute distress, pleasant and cooperative, [on room air] Lungs: Resps E/U, Symmetrical chest expansion, Eyes: PERRL Musculoskeletal: Flexion and extension of lumbar spine somewhat guarded secondary to pain, deep tendon reflexes normal, strength in upper and lower extremities [5/5], slightly antalgic gait noted, positive Kemps test bilateral lumbar spine, positive facet loading lumbar spine Neurological: speech clear, broach grinder equal, no gross sensory deficits Assessment:: Degenerative disc disease lumbar spine with lumbar radiculopathy, sacroiliitis, lumbar spondylosis, facet arthropathy Plan:: We will schedule an L3-L4 L4-L5 L5-S1 bilateral medial branch block/facet joint injection for the patient. She is not on any anticoagulation. Patient is continuing a home stretching program. We will have permission from Dr. Low prior to her injection to the ensure that she can have it. I will follow-up w ith the patient after her injection and reassess her symptoms at that time. Dr. Ramos has reviewed this note and agrees with this plan of care. This note was dictated using voice recognition software and may contain errors or omissions
--- NOTE | 2018-05-01 11:31 | PC.NURSE ---
PERMISSION OBTAINED FROM DR BAILEY FOR PT TO RECEIVE MEDIAL BRANCH BLOCKS. SPOKE WITH KATT JORDAN IN SURGICAL SUITE.
== END ==
PROVIDERS: PCP Family Medicine; Visit Provider Clinical Nurse Specialist Family Health
DX: M51.16 Intervertebral disc disorders with radiculopathy, lumbar region (principal); M46.1 Sacroiliitis, not elsewhere classified; M47.896 Other spondylosis, lumbar region; M54.06 Panniculitis affecting regions of neck and back, lumbar region
CPT/HCPCS: 99213

== ENCOUNTER → 2018-06-10 11:10 | Outpatient (CLI) | payer BC, SELFPAY ==
--- NOTE | 2018-06-10 11:20 | XR_ITS ---
XR finger LT min 2V CLINICAL INDICATION: Follow-up septic joint/osteomyelitis ITS.REASON: sp left middle finger wash out sx 10/07/17 ORDERING PHYSICIAN: Silvano Low MD PATIENT AGE: 58 years Comparison: 04/15/2018 FINDINGS: Cortical irregularity is noted at the DIP joint with cortical lucencies as before at the DIP joint. In particular, there remains a small lucency along the proximal and ulnar aspect of the distal phalanx and along the distal and ulnar aspect of the middle phalanx not significant change. Lucency noted at the dorsal distal aspect of the middle phalanx also unchanged. IMPRESSION: Overall no change in the cortical irregularity with subcortical lucencies at the DIP joint.
[2018-06-10 11:33] LABS: Basophils # 0.1 K/mm3 (0-0.2); Basophils % 0.9 % (0.1-2.0); Eosinophils # 0.4 K/mm3 (0.0-0.4); Eosinophils % 5.7 % (0.1-12.0); Hematocrit 43.4 % (37.0-47.0); Hemoglobin 13.9 g/dL (12.2-16.2); Lymphocytes # 1.8 K/mm3 (0.7-4.5); Lymphocytes % 25.5 % (10-50); Mean Corpuscular HGB Conc 32.1 g/dL (31.8-35.4); Mean Corpuscular Hemoglobin 29.9 pg (27.0-31.2); Mean Corpuscular Volume 92.9 fl (81-99); Mean Platelet Volume 7.5 fl (7.4-10.4); Monocytes # 0.2 K/mm3 (0.1-1.0); Monocytes % 3.3 % (1.7-9.3); Neutrophils # 4.6 K/mm3 (1.8-7.8); Neutrophils % 64.6 % (37.0-80.0); Platelet Count 278 K/mm3 (142-424); Red Blood Count 4.67 M/mm3 (4.20-5.40); Red Cell Distribution Width 13.3 % (11.5-17.5); White Blood Count 7.2 K/mm3 (4.8-10.8)
[2018-06-10 11:40] LABS: C-Reactive Protein < 0.2 mg/L (0.0-0.9)
[2018-06-10 12:18] LABS: Erythrocyte Sedimentation Rate 17 mm/hr (0-30)
== END ==
PROVIDERS: Visit Provider Orthopaedic Surgery
DX: M86.9 Osteomyelitis, unspecified (principal)
CPT/HCPCS: 73140; 85025; 85651; 86140

== ENCOUNTER → 2018-07-01 14:27 | Outpatient (POV) | payer BC, SELFPAY ==
[2018-07-01 14:47] VITALS: BP 147/96; PULSE 102; RESP 18; O2SAT 98; BMI 38.6
--- NOTE | 2018-07-02 08:09 | HMH.PAINSOAP ---
[facility] Pain Management SOAP Note Subjective:: Patient is a pleasant 58-year-old white female who presents today for follow-up after her L3-L4 L4-L5 L5-S1 bilateral medial branch block. Patient got 90% relief of her symptoms for 2 weeks. Patient has had multiple medial branch blocks with similar results. Patient is interested in moving forward with an RFA of those areas. Given the efficacy of the medial branch blocks I believe Sara would be beneficial for her. Patient is looking for something that will give her more long-term relief and increased functionality. She is continuing a home stretching program. She is on anti-inflammatories. Rates her pain today a 4 out of 10 ROS General: no recent weight change, no fever, no sleep disturbances Respiratory: no cough, no shortness of air, no recurring pulmonary infections Cardiovascular/Peripheral Vascular: No chest pain, No palpitations, no edema, no shortness of breath. Gastrointestinal: no incontinence, normal bowel movements reported Genitourinary: no incontinence Musculoskeletal: Back pain Psychiatric: normal mood/ affect, Neurological: [denies weakness in extremities], [denies balance issues] Objective:: Physical Exam General: Alert and oriented x3, no acute distress, pleasant and cooperative, [on room air] Lungs: Resps E/U, Symmetrical chest expansion, Eyes: PERRL Musculoskeletal: Flexion and extension of lumbar spine somewhat guarded secondary to pain, deep tendon reflexes normal, strength in upper and lower extremities [5/5], slightly antalgic gait noted, positive Kemps test bilateral lumbar spine positive facet loading lumbar spine bilaterally Neurological: speech clear, proposal review analyst equal, no gross sensory deficits Assessment:: Degenerative disc disease lumbar spine with lumbar spondylosis and facet arthropathy Plan:: We will schedule a RFA of the L3-L4 L4-L5 L5-S1 levels we will start with the right side and in 2 weeks to the left side. I believe it would be beneficial for the patient. I will follow-up with the patient after her RFA and reassess her symptoms at that time. Dr. Ramos has reviewed this note and agrees with this plan of care. This note was dictated using voice recognition software and may contain errors or omissions
== END ==
PROVIDERS: PCP Family Medicine; Visit Provider Clinical Nurse Specialist Family Health
DX: M51.36 Other intervertebral disc degeneration, lumbar region (principal); M47.896 Other spondylosis, lumbar region; M54.06 Panniculitis affecting regions of neck and back, lumbar region
CPT/HCPCS: 99213

== ENCOUNTER → 2018-08-19 10:36 | Outpatient (POV) | payer BC, SELFPAY ==
[2018-08-19 11:13] VITALS: BP 138/98; PULSE 96; RESP 18; O2SAT 98; BMI 39.8
--- NOTE | 2018-08-19 11:25 | HMH.PAINSOAP ---
[facility] Pain Management SOAP Note Subjective:: She is a pleasant 58-year-old white female who presents today after radiofrequency ablation at L3-L4 L4-L5 L5-S1 levels bilaterally. Patient is doing well rating her pain a 2 out of 10. She still having some left-sided pain however it is much improved. Patient is having some right foot pain. Patient is seeing podiatry for this. ROS General: no recent weight change, no fever, no sleep disturbances Respiratory: no cough, no shortness of air, no recurring pulmonary infections Cardiovascular/Peripheral Vascular: No chest pain, No palpitations, no edema, no shortness of breath. Gastrointestinal: no incontinence, normal bowel movements reported Genitourinary: no incontinence Musculoskeletal: Back pain at times Psychiatric: normal mood/ affect Neurological: [denies weakness in extremities], [denies balance issues] Objective:: Physical Exam General: Alert and oriented x3, no acute distress, pleasant and cooperative, [on room air] Lungs: Resps E/U, Symmetrical chest expansion, Eyes: PERRL Musculoskeletal: Flexion and extension of lumbar spine somewhat guarded secondary to pain, deep tendon reflexes normal, strength in upper and lower extremities [5/5], slightly antalgic gait noted Neurological: speech clear, pilates coordinator equal, no gross sensory deficits Assessment:: Degenerative disc disease lumbar spine spine with lumbar facet arthropathy and lumbar spondylosis Plan:: We will follow-up with the patient in 2 months reassess her symptoms at that time she is been instructed to call the office if she has any issues prior to her next appointment. Dr. Ramos has reviewed this note and agrees with this plan of care. This note was dictated using voice recognition software and may contain errors or omissions
== END ==
PROVIDERS: PCP Family Medicine; Visit Provider Clinical Nurse Specialist Family Health
DX: M51.36 Other intervertebral disc degeneration, lumbar region (principal); M54.06 Panniculitis affecting regions of neck and back, lumbar region; M47.896 Other spondylosis, lumbar region
CPT/HCPCS: 99212

== ENCOUNTER → 2018-10-16 13:07 | Outpatient (CLI) | payer BC, SELFPAY ==
--- NOTE | 2018-10-16 13:13 | XR_ITS ---
XR finger LT min 2V CLINICAL INDICATION: Pain ITS.REASON: sp 1 year left middle digit debridement ORDERING PHYSICIAN: Silvano Low MD PATIENT AGE: 58 years Comparison: 06/10/2018 FINDINGS: There remains decrease in the joint space at the DIP joint of the third digit with cortical irregularity. This is similar when compared to the previous exam. No additional bony erosive change evident. IMPRESSION: Stable appearance of the DIP joint of the third digit
[2018-10-16 13:16] LABS: Basophils # 0.1 K/mm3 (0-0.2); Basophils % 1.2 % (0.1-2.0); Eosinophils # 0.3 K/mm3 (0.0-0.4); Hemoglobin 12.9 g/dL (12.2-16.2); Lymphocytes # 1.3 K/mm3 (0.7-4.5); Lymphocytes % 28.2 % (10-50); Mean Corpuscular HGB Conc 31.5 g/dL (31.8-35.4); Mean Corpuscular Hemoglobin 31.1 pg (27.0-31.2); Mean Corpuscular Volume 98.6 fl (81-99); Mean Platelet Volume 8.7 fl (7.4-10.4); Monocytes # 0.2 K/mm3 (0.1-1.0); Neutrophils # 2.8 K/mm3 (1.8-7.8); Neutrophils % 60.6 % (37.0-80.0); Platelet Count 248 K/mm3 (142-424); Red Blood Count 4.15 M/mm3 (4.20-5.40); Red Cell Distribution Width 13.2 % (11.5-17.5); White Blood Count 4.6 K/mm3 (4.8-10.8)
[2018-10-16 13:21] LABS: C-Reactive Protein 0.3 mg/L (0.0-0.9)
[2018-10-16 14:30] LABS: Erythrocyte Sedimentation Rate 23 mm/hr (0-30)
== END ==
PROVIDERS: Visit Provider Orthopaedic Surgery
DX: L08.9 Local infection of the skin and subcutaneous tissue, unspecified (principal)
CPT/HCPCS: 36415; 73140; 85025; 85651; 86140

== ENCOUNTER → 2018-11-25 12:24 | Outpatient (CLI) | payer BC, SELFPAY ==
--- NOTE | 2018-11-25 12:27 | XR_ITS ---
PROCEDURE: XR KNEE LT 4V CLINICAL INDICATION: left knee pain COMPARISON: No exams were available for comparison FINDINGS: No fracture, dislocation, lytic change, or blastic change evident. There are minimal osteoarthritic changes of the patellofemoral joint and medial compartment IMPRESSION: Minimal osteoarthritic change otherwise Dictated by: Ha Alvarze MD 11/25/2018 13:34 Signed by: <Electronically signed by Ha Alvarez MD in [place]> 11/25/2018 13:34
== END ==
PROVIDERS: PCP Family Medicine; Visit Provider Orthopaedic Surgery
DX: M25.562 Pain in left knee (principal)
CPT/HCPCS: 73564

== ENCOUNTER → 2018-12-27 14:24 | Outpatient (CLI) | payer BC, SELFPAY ==
--- NOTE | 2018-12-27 14:25 | MR_ITS ---
PROCEDURE: MR KNEE LT WO CON CLINICAL INDICATION: evaluate for meniscal tear Fall with injury and pain medially and posteriorly COMPARISON: XR KNEE LT 4V from 11/25/2018 TECHNIQUE: Routine multiplanar multi echo sequences are performed without gadolinium enhancement. FINDINGS: Cruciate ligaments are intact. The collateral ligaments, patellar tendon, and quadriceps tendon appear intact. No meniscal tear evident. There is mild thinning of the patellar cartilage with some irregularity of the posterior patellar cartilage. Mild edema is noted about the knee and patellar region. There is a small knee joint effusion. There are minimal osteoarthritic changes of the patellofemoral joint. There is a small area decreased T1 and increased T2 signal which has a somewhat irregular shape measuring 10 mm within the proximal tibia posteriorly just anterior to the insertion of the a posterior cruciate ligament consistent with a small cystic area. No fracture or dislocation. Small subarticular cystic changes are also present at the tibial spine region. There are mild osteoarthritic changes of the medial and lateral compartment. IMPRESSION: 1. No internal derangement 2. Chondromalacia patella with small knee joint effusion and mild osteoarthritic changes as well as subarticular cystic changes of the proximal tibia Dictated by: Ha Alvarez MD 12/31/2018 06:19 Electronically signed by Ha Alvarez MD in [place] 12/31/2018 06:19
== END ==
PROVIDERS: PCP Family Medicine; Visit Provider Orthopaedic Surgery
DX: M17.12 Unilateral primary osteoarthritis, left knee (principal)
CPT/HCPCS: 73721

== ENCOUNTER → 2019-01-21 13:39 | Outpatient (CLI) | payer BC, SELFPAY ==
--- NOTE | 2019-01-21 13:47 | XR_ITS ---
PROCEDURE: XR HAND RT MIN 3V CLINICAL INDICATION: right middle digit injury The the the the os COMPARISON: [id number] XR hand LT min 3V from 10/06/2017 [id number] XR hand LT min 3V from 10/07/2017 FINDINGS: No fracture or dislocation. No lytic or blastic change. There is normal mineralization. The joint spaces are well-preserved. No significant degenerative/arthritic changes. No erosive changes evident. Other findings:There is minimal calcification along the dorsal distal aspect of the middle phalanx of the 2nd 3rd and 4th fingers IMPRESSION: No acute finding Dictated by: Ha Alavrez MD 01/21/2019 14:23 Electronically signed by Ha Alvarez MD in [place] 01/21/2019 14:23
== END ==
PROVIDERS: PCP Family Medicine; Visit Provider Orthopaedic Surgery
DX: M79.641 Pain in right hand (principal)
CPT/HCPCS: 73130

== ENCOUNTER → 2019-05-05 09:33 | Outpatient (CLI) | payer BC, SELFPAY ==
[2019-05-05 09:44] LABS: Basophils % 0.9 % (0.1-2.0); Eosinophils # 0.1 K/mm3 (0.0-0.4); Eosinophils % 2.7 % (0.1-12.0); Hematocrit 41.1 % (37.0-47.0); Hemoglobin 13.9 g/dL (12.2-16.2); Lymphocytes # 0.9 K/mm3 (0.7-4.5); Mean Corpuscular HGB Conc 33.9 g/dL (31.8-35.4); Mean Corpuscular Hemoglobin 30.7 pg (27.0-31.2); Mean Corpuscular Volume 90.5 fl (81-99); Mean Platelet Volume 7.9 fl (7.4-10.4); Monocytes # 0.3 K/mm3 (0.1-1.0); Monocytes % 7.1 % (1.7-9.3); Neutrophils % 69.3 % (37.0-80.0); Platelet Count 231 K/mm3 (142-424); Red Blood Count 4.54 M/mm3 (4.20-5.40); Red Cell Distribution Width 13.4 % (11.5-17.5); White Blood Count 4.3 K/mm3 (4.8-10.8)
[2019-05-05 11:07] LABS: Alanine Aminotransferase 28 U/L (12-78); Albumin Level 3.8 gm/dL (3.4-5.0); Albumin/Globulin Ratio 1.3 (1.1-1.8); Alkaline Phosphatase 75 U/L (46-116); Anion Gap 16.8 mEq/L (5-15); Aspartate Amino Transferase 19 U/L (15-37); Bilirubin,Total 0.5 mg/dL (0.2-1.0); Blood Urea Nitrogen 12 mg/dL (7-18); Calcium 8.9 mg/dL (8.5-10.1); Carbon Dioxide 25 mmol/L (21.0-32.0); Chloride 105 mmol/L (98-107); Creatinine,Serum 1.22 mg/dL (0.55-1.02); Estimated Glomerular Filt Rate 45 ml/min (>60); GFR (African American) 55 ML/MIN (>60); Glucose 124 mg/dL (74-106); Potassium 3.8 mmoL/L (3.5-5.1); Sodium 143 mmol/L (136-145); Total Protein,Serum 6.8 gm/dL (6.4-8.2)
== END ==
PROVIDERS: Visit Provider Orthopaedic Surgery
DX: Z01.818 Encounter for other preprocedural examination (principal); M25.562 Pain in left knee
CPT/HCPCS: 36415; 80053; 85025

== ENCOUNTER → 2019-09-23 14:22 | Outpatient (CLI) | payer MEDICARE, BC, SELFPAY ==
--- NOTE | 2019-09-23 15:00 | XR_ITS ---
PROCEDURE: XR SHOULDER RT MIN 2V CLINICAL INDICATION: RT SHOULDER PAIN COMPARISON: No exams were available for comparison FINDINGS: Mild osteoarthritic changes of the AC joint. The glenohumeral joint has an unremarkable appearance. No fracture or dislocation minimal calcification noted over the greater tubercle and may be due to calcific tendinitis IMPRESSION: Possible mild calcific tendinitis and degenerative change AC joint Dictated by: Ha Alvarez MD 09/23/2019 17:01 Electronically signed by Ha Alvarez MD in [place] 09/23/2019 17:01
--- NOTE | 2019-09-23 15:00 | XR_ITS ---
PROCEDURE: XR CERVICAL SPINE 5V CLINICAL INDICATION: NECK PAIN Right-sided neck pain COMPARISON: No exams were available for comparison FINDINGS: Slight reversal of the cervical lordosis which may be due to patient positioning or muscle spasm. There is mild degenerative disc disease at C4-C5 C5-C6 and C6-C7. Mild foraminal narrowing noted on the right at C3-C4 and C5-C6. The foramina on the left are not well demonstrated. Mild facet arthritic/hypertrophic changes are present at C3-C4 and C5 IMPRESSION: Slight reversal of lordosis with cervical spondylosis as described above Dictated by: Ha Alvarez MD 09/23/2019 17:02 Electronically signed by Ha Alvarez MD in [place] 09/23/2019 17:02
== END ==
PROVIDERS: PCP Family Medicine; Visit Provider Family Medicine
DX: M54.2 Cervicalgia (principal); M25.511 Pain in right shoulder
CPT/HCPCS: 72050; 73030

== ENCOUNTER → 2019-10-07 12:58 | Outpatient (CLI) | payer MEDICARE, BC, SELFPAY ==
--- NOTE | 2019-10-07 13:09 | XR_ITS ---
PROCEDURE: XR SHOULDER RT MIN 2V CLINICAL INDICATION: right shoulder pain COMPARISON: XR SHOULDER RT MIN 2V from 09/23/2019 FINDINGS: Mild osteoarthritic change of the AC joint and glenohumeral joint. No acute fracture or dislocation. No lytic or blastic Change. Other findings:None. IMPRESSION: No change mild osteoarthritis Dictated by: Ha Alvarez MD 10/07/2019 13:59 Electronically signed by Ha Alvarez MD in [place] 10/07/2019 13:59
== END ==
PROVIDERS: PCP Family Medicine; Visit Provider Orthopaedic Surgery
DX: M25.511 Pain in right shoulder (principal)
CPT/HCPCS: 73030

== ENCOUNTER 2019-10-07 14:16 | Outpatient (RCR) | payer MEDICARE, BC, SELFPAY | END 2019-10-07 14:40 | disposition home or self-care (01) | LOC: OT 14:16 | PROVIDERS: Visit Provider Orthopaedic Surgery | DX: G56.01 Carpal tunnel syndrome, right upper limb (principal) | CPT/HCPCS: 97763 ==

== ENCOUNTER → 2019-10-20 13:07 | Outpatient (CLI) | payer MEDICARE, BC, SELFPAY ==
--- NOTE | 2019-10-20 13:07 | MR_ITS ---
PROCEDURE: MR SHOULDER RT WO CON CLINICAL INDICATION: right shoulder pain NUMBNESS AND TINGLING IN RT ARM. UNABLE TO LEFT ARM ABOVE HEAD. [id number]. NO TRAUMA. PRIOR X-RAY 10-07-19 COMPARISON: XR SHOULDER RT MIN 2V from 10/07/2019 TECHNIQUE: Routine multiplanar multi echo sequences are performed without gadolinium enhancement. FINDINGS: There are mild hypertrophic changes the acromioclavicular joint with some minimal impingement upon the musculotendinous junction of the supraspinatus with mild subacromial stenosis of 5 mm. There is slight increase in T2 signal of the supraspinatus tendon distally suggesting mild tendinopathy/tendinosis. No evidence of rotator cuff tear. The infraspinatus, subscapularis, and teres minor tendons have an unremarkable appearance. No labral tear apparent. The bicipital tendon appears in place. There is some minimal subcortical increased T2 signal of the humeral head posteriorly IMPRESSION: Mild acromioclavicular arthropathy with minimal impingement of the supraspinatus with mild tendinopathy/tendinosis. No evidence of rotator cuff tear. Dictated by: Ha Alvarez MD 10/21/2019 12:39 Electronically signed by Ha Alvarez MD in [place] 10/21/2019 12:39
== END ==
PROVIDERS: PCP Family Medicine; Visit Provider Orthopaedic Surgery
DX: M25.511 Pain in right shoulder (principal)
CPT/HCPCS: 73221

== ENCOUNTER 2019-12-29 11:00 | Outpatient (RCR) | payer MEDICARE, BC, SELFPAY ==
--- NOTE | 2019-12-01 15:03 | HMH.OTOPEV ---
OT Inpatient Evaluation Rehab OT Outpatient Eval Start: 12/01/19 14:39 Freq: Status: Active Protocol: Document 12/01/19 14:40 EVELYN (Rec: 12/01/19 15:03 EVELYN [id number]) Electronically Signed By Ju Beyer OT 12/01/19 14:40 Outpatient Therapy Subjective History Subjective History 59 year old female referred to OP OT services for right shoulder subacrominal impingement and rotator cuff tendinopathy. 10/07/19 x-ray completed with no findings. completed MRI with findings of acrominoclavicular arthropathy with minimal impingement of the supraspinatus with mild tendinopathy tendinosis. No evidence of rotator cuff tear. [id number]/[id number] Inj on . Patient verbalize the shot helped ~1-2 weeks and pain returned. Chief Complaint Pain,Weakness Symptom Type Ache,Numbness Symptoms Relieved By Nothing Symptoms Aggravated By Physical Activity Prior Functional Limitations None Current Functional Limitations Reaching,Lifting Symptom Description Constant and Continuous Level of pain today (0-10) 3 Pain scale - at its best (0-10) 3 Pain scale - at its worst (0-10) 9 Shoulder/Elbow Eval Shoulder Objective Measurements Shoulder ROM Right Shoulder Abduction Active Range of 75 Motion (degrees) Shoulder Flexion Active Range of Motion 100 (degrees) Query Text: Shoulder External Rotation Active Range 65 of Motion (degrees) Shoulder Internal Rotation Active Range 70 of Motion (degrees) pain with active ROM shoulder exam right standard Shoulder MMT Shoulder Abduction Strength Grade 3+ Fair+ Shoulder Extension Strength Grade 3+ Fair+ Shoulder Flexion Strength Grade 3+ Fair+ Shoulder Horizontal Abduction Strength 3+ Fair+ Grade Shoulder Horizontal Adduction Strength 3+ Fair+ Grade Shoulder External Rotation Strength 3+ Fair+ Grade Shoulder Internal Rotation Strength 3+ Fair+ Grade Shoulder Special Tests impingement sign present shoulder exam right standard Shoulder Empty Can (Supraspinatus) Test Positive Right Elbow Objective Measurements OT Outpatient Assessment Impairments Problems/Impair
--- NOTE | 2019-12-29 11:55 | HMH.RHREAS ---
Rehab Reassessment Rehab OP Re-assessment Start: 12/29/19 11:13 Freq: Status: Active Protocol: Document 12/29/19 11:43 EVELYN (Rec: 12/29/19 11:54 VEELYN [id number]) Electronically Signed By Ju Beyer OT 12/29/19 11:43 Rehab Re-assessment Subjective Subjective My shoulder is still pretty sore. I was fooling with my mulch the other day. Objective Objective Notes Patient has participate in OP OT services for the past month with thera act, thera exer and modalities to improve R UE AROM, strengthening and decreasing pain. However Patient continues to verbalize pain in R shoulder during flex, ABD, IR and ER. Patient has f/u with nancy JONES on for possible further testing. Assessment Progress Assessment Slower Than Expected Assessment Notes Patient has made progress since the SOC, however slower than expected and continues to verbalize high pain levels in R shoulder. Patient verbalize having a follow up appointment on 12/30/29 with ortho. Patient goals met AROM of R UE flex: 130; ABD: 100; Goals Not Met Pain levels 6-8/10 during movement. Endurance of 20 mins of exer Revised Goals AROM of R UE flex: 140; ABD: 120; ER:75 Pain at worst 5/10 Endurance to 30mins of exer prior to RB. Plan Plan Continue POC. Patient to follow up with nancy on 12/31/19 for possible further testing. UPOC completed this date with possible continue of care. Frequency of Therapy 1-2 time a week. Duration of therapy 4 weeks Time and Billing Re-Eval Time 15 Re-Eval Billing Units 1 PHYSICIAN CERTIFICATION: I certify the specified therapy services for Sue Cardona are required, authorized, and reviewed every 30 days.
== END 2019-12-29 11:58 | disposition home or self-care (01) ==
LOC: OT 11:00
PROVIDERS: PCP Family Medicine; Visit Provider Orthopaedic Surgery
DX: M25.511 Pain in right shoulder (principal); M75.51 Bursitis of right shoulder; M67.911 Unspecified disorder of synovium and tendon, right shoulder; M75.21 Bicipital tendinitis, right shoulder; M19.011 Primary osteoarthritis, right shoulder; G56.01 Carpal tunnel syndrome, right upper limb
CPT/HCPCS: 97014; 97033; 97035; 97110; 97164; 97165; 97530; G0283

== ENCOUNTER → 2020-02-10 14:46 | Outpatient (CLI) | payer MEDICARE, BC, SELFPAY ==
--- NOTE | 2020-02-10 15:03 | XR_ITS ---
PROCEDURE: XR CHEST 2V CLINICAL HISTORY: HTN,ASTHMA COMPARISON: No exams were available for comparison FINDINGS: The cardiomediastinal silhouette and pulmonary vascularity are within normal limits. The lungs are clear without infiltrates, suspicious nodules, or pleural effusions. There are small calcified hilar nodes bilaterally. There are mild multilevel degenerate changes mid lower thoracic spine. No acute bony abnormalities. IMPRESSION: No acute findings. Dictated by: Dr. Yovanny Boyd MD 02/10/2020 15:19 Dr. Yovanny Boyd MD in [place] 02/10/2020 15:19
[2020-02-10 15:42] LABS: Basophils # 0.1 K/mm3 (0-0.2); Eosinophils # 0.3 K/mm3 (0.0-0.4); Eosinophils % 5.1 % (0.1-12.0); Hematocrit 43.2 % (37.0-47.0); Hemoglobin 14.5 g/dL (12.2-16.2); Lymphocytes # 2.3 K/mm3 (0.7-4.5); Mean Corpuscular HGB Conc 33.6 g/dL (31.8-35.4); Mean Corpuscular Hemoglobin 31.2 pg (27.0-31.2); Mean Corpuscular Volume 92.9 fl (81-99); Mean Platelet Volume 8.4 fl (7.4-10.4); Monocytes # 0.6 K/mm3 (0.1-1.0); Monocytes % 8.7 % (1.7-9.3); Neutrophils # 3.3 K/mm3 (1.8-7.8); Neutrophils % 50.2 % (37.0-80.0); Platelet Count 255 K/mm3 (142-424); Red Blood Count 4.65 M/mm3 (4.20-5.40); Red Cell Distribution Width 14.5 % (11.5-17.5); White Blood Count 6.6 K/mm3 (4.8-10.8)
[2020-02-10 17:03] LABS: Coronavirus 19 IgG Antibody Negative (Negative); Coronavirus 19 IgM Antibody Negative (Negative)
[2020-02-10 21:29] LABS: Chloride 104 mmol/L (98-107); Sodium 141 mmol/L (136-145)
[2020-02-10 21:32] LABS: Alanine Aminotransferase 35 U/L (12-78); Albumin Level 4.3 g/dl (3.5-5.0); Albumin/Globulin Ratio 1.5 (1.1-1.8); Alkaline Phosphatase 56 U/L (38-126); Aspartate Amino Transferase 38 U/L (14-36); Bilirubin,Total 0.6 mg/dl (0.2-1.3); Blood Urea Nitrogen 10 mg/dl (7-17); Carbon Dioxide 30 mmol/L (22.0-30.0); Estimated Glomerular Filt Rate 51 ml/min (>60); GFR (African American) 62 ML/MIN (>60); Globulin 2.8 g/dL (1.3-3.2); Total Protein,Serum 7.1 g/dl (6.3-8.2)
[2020-02-10 21:33] LABS: Calcium 9.8 mg/dl (8.4-10.2); Glucose 79 mg/dl (74-100)
== END ==
PROVIDERS: Visit Provider Orthopaedic Surgery
DX: Z01.818 Encounter for other preprocedural examination (principal); G56.01 Carpal tunnel syndrome, right upper limb
CPT/HCPCS: 36415; 71046; 80053; 85025; 86328

== ENCOUNTER 2020-02-12 08:44 | Day surgery (SDC) | payer MEDICARE, BC, SELFPAY ==
[2020-02-09 13:51] VITALS: BMI 39.4
[2020-02-12 09:55] VITALS: BP 129/91; PULSE 95; RESP 18; TEMP 36.5; O2SAT 97
--- NOTE | 2020-02-12 11:32 | HMH.ANESCL ---
[facility] Anesthesia Checklist - Patient Identification Patient Identification: Arm Band, Verbal (Name & ) - Structural Data Admitted From: Home Planned Operative Procedure/s: Right CTR Consent for Planned Operative Procedure(s) Verified: Yes Verified Documents: Surgical Consent, History and Physical - NPO Status Verified Time NPO: 00:00 - Chart Verification Results Verified: CBC, BMP - Additional verifications Anesthesia Reactions: No Hx Blood Transfusions: No Blood Transfusion Reaction: No - Airway Assessment C-Spine Mobility Assessed: Yes TMJ Mobility Assessed: Yes Dentition: Good Dentition - Neurological Assessment Level of Consciousness: Awake, Alert, Appropriate, Follows Commands Hx Seizures: No Numbness or tingling in extremities: No - Anesthesia Plan Anesthesia Risk discussed: Yes Anesthesia Plan: Verified ASA Class: III Anesthesia Type: MAC w/Block [facility] History I have reviewed the patient's past medical history: Yes Medical History: Reports:: Asthma, Cancer (spinal), Gastroesophageal Reflux Disease(GERD), Hypertension Denies:: Chronic Obstructive Pulmonary Disease (COPD), Coronary Artery Disease, Diabetes Mellitus Type 1, Diabetes Mellitus Type 2, Internal Pacemaker, MRSA, Seizures *Have you ever received a pneumonia vaccine?: No *Have you received a flu vaccine this season?: No Other Medical History: Reports: Arthritis, Fibromyalgia, Hypothyroidism, Other. Denies: Blood Transfusion Reaction Anesthesia experience/problems:: None Laterality Cases: Left: Arthroscopy Knee, Bilateral: Carpal Tunnel Release, Other Other Surgeries: Yes: Appendectomy, Cholecystectomy, , Hysterectomy-Total, Other. No: Pacemaker Amputation: No Fractures: Yes (NASAL) - *Social History Last grade of school completed: High school graduate Smoking Status: Never smoker Alcohol Intake: never Alcohol Intake Frequency:: holidays/special occasions only Substance Use Type: denies use *Occupational Status:: disabled Housing: house Household Members: spouse *Travel in the last 8 weeks: None Family Hx:: Cancer
[2020-02-12 12:55] VITALS: BP 135/74; PULSE 91; RESP 16; TEMP 36.3; O2SAT 94
[2020-02-12 13:10] VITALS: BP 130/81; PULSE 100; RESP 16; TEMP 36.3; TEMP 43; O2SAT 97
[2020-02-12 13:27] VITALS: BP 139/91; PULSE 103; RESP 16; TEMP 36.3; O2SAT 98
--- NOTE | 2020-02-12 15:57 | HMH.OPNOTE ---
Date of procedure: 02/12/20 Pre-op Diagnosis:: Recurrent carpal tunnel syndrome, right wrist Post-op Diagnosis:: Same Procedure performed:: Revision open carpal tunnel release, right wrist Surgeon:: Silvano Low MD AUTO CARRIER DRIVER:: Shola Ponce Anesthesia: regional (Supraclavicular nerve block), other (IV sedation) Estimated blood loss (mL): 2 Clinical Note:: Patient is a 59-year-old female with recurrent right carpal tunnel syndrome with long-standing symptoms. EMG/NCV results confirmed moderate median nerve compression at the wrist with EMG evidence of chronic neuropathy changes in the right APB muscle. Her symptoms are gradually worsening and patient failed to respond adequately to conservative management. Therefore the revision carpal tunnel release surgery on the right side is necessary to relieve symptoms, preserve the remaining fibers of the median nerve, improve function and decrease the pain, paresthesias and weakness and to prevent permanent nerve damage. Please refer to my office note for full details. Operative findings:: The intraoperative findings showed a lot of scarring from the previous surgery. The median nerve was seen to be very tightly compressed and hyperemic over the distal carpal tunnel. Adhesions and synovitis noted in the carpal tunnel. The flexor retinaculum was noted to be thick and tight distally. There were no space-occupying lesions within the carpal tunnel. Operative note:: On the day of the surgery the patient was met in the preoperative area. Patient was positively identified and the operative site was marked and initialed by me. A physical examination was performed and the chart was updated. I again discussed the procedure, risks and benefits and alternatives with the patient. The complications discussed include but are not limited to- bleeding, injury to nerves, blood vessels and tendons, infection, wound dehiscence, incomplete relief/continued pain, persistent numbness, palmar hypersensitivity, pillar pain, DVT/PE, complex regional pain syndrome(CRPS), worsening of nerve damage, failure of the condition to improve, incomplete return of function, bowstringing of tendons, weakness of container finisher strength, recurrence, failure of the surgery to accomplish the desired goals, decreased use of the hand, loss of use of the arm, loss of the hand or arm, loss of life. Likely need for further surgery in the future has been discussed. I have told her that I will be making a separate and longer incision crossing the wrist crease at an angle and have indicated to the patient where the proposed incision would be made and also discussed the possibility of extending the incision if needed to accomplish an effective release. We have discussed how the goal of surgery is to protect the fibers which have remained healthy and hopefully reverse the symptoms of the fibers which are compromised but still recoverable. We have explained that, fibers that are permanently damaged will not recover. Patient asked appropriate questions and all have been answered by me. Patient understood the risks, agreed to proceed with surgery, and no guarantees or assurances were given or implied. The patient was then brought to the operating room and placed supine on the operating table. The right upper extremity was placed over a side table. All the bony prominences were well-padded. The patient had a supraclavicular nerve block and IV sedation administered by the customer service teller. A well-padded tourniquet cuff was placed over the upper arm. The right upper extremity was prepped and draped in the usual sterile fashion. A preprocedure timeout was performed as per hospital policy. The Vee's landmarks and previous skin incision was marked on the skin with a marker pen. I then marked the proposed new incision more ulnar to the previous scar and extending into the forearm crossing the distal wrist crease at an angle. The limb was exsanguinated with the Esmarch bandage and tourniquet w
== END 2020-02-12 13:27 | disposition home or self-care (01) ==
LOC: OR 08:48
PROVIDERS: PCP Family Medicine; Visit Provider Orthopaedic Surgery
PROC: (CPT 64721; principal; 2020-02-12 10:15)
DX: G56.01 Carpal tunnel syndrome, right upper limb (principal); Z79.899 Other long term (current) drug therapy; I10 Essential (primary) hypertension
CPT/HCPCS: 64721; 96374; J0670

== ENCOUNTER → 2020-03-24 09:36 | Outpatient (CLI) | payer MEDICARE, BC, SELFPAY ==
--- NOTE | 2020-03-24 09:41 | XR_ITS ---
PROCEDURE: XR KNEE LT 4V CLINICAL INDICATION: sp LT knee scope, dos 05-09-2019 COMPARISON: No exams were available for comparison FINDINGS: No fracture or dislocation. No lytic or blastic change. There is normal mineralization. There is minor joint space narrowing medially. The tibial spines appear normal. The patella is intact and I see no definite effusion. Other findings:None. IMPRESSION: Minor degenerate change medial joint compartment, no acute pathology noted Dictated by: Dr. Yovanny Boyd MD 03/24/2020 09:53 Dr. Yovanny Boyd MD in [place] 03/24/2020 09:53
== END ==
PROVIDERS: PCP Family Medicine; Visit Provider Orthopaedic Surgery
DX: M17.12 Unilateral primary osteoarthritis, left knee (principal)
CPT/HCPCS: 73564

== ENCOUNTER → 2020-05-18 10:29 | Outpatient (CLI) | payer MEDICARE, BC, SELFPAY ==
--- NOTE | 2020-05-18 10:36 | XR_ITS ---
PROCEDURE: XR HIP LT 2-3V W/PELVIS CLINICAL INDICATION: left hip pain COMPARISON: CR HIP2L HIP-2 VIEWS-LT from 09/27/2012 FINDINGS: No fracture or dislocation. No lytic or blastic change. There are mild osteoarthritic changes of both hips as seen on the AP view of the pelvis. Subchondral cystic changes are present in the right acetabular rim laterally. There is some mild hypertrophic change along the greater trochanter on both sides left greater than right. IMPRESSION: Mild degenerative changes Dictated by: Ha Alvarez MD 05/18/2020 11:40 Ha Alvarez MD in [place] 05/18/2020 11:40
== END ==
PROVIDERS: PCP Family Medicine; Visit Provider Orthopaedic Surgery
DX: M25.552 Pain in left hip (principal)
CPT/HCPCS: 73502

== ENCOUNTER → 2020-05-20 12:47 | Outpatient (CLI) | payer MEDICARE, BC, SELFPAY ==
--- NOTE | 2020-05-20 12:47 | IR_ITS ---
PROCEDURE: IR FLUORO GUIDED NEEDLE PLACE CLINICAL INDICATION: LT hip/knee pain COMPARISON: No exams were available for comparison FINDINGS: Fluoroscopy time: 2 minutes and 45 seconds. Three images are submitted demonstrate contrast injected into the left hip joint. Injection is performed by Dr. Low. There are mild osteoarthritic changes of the left hip. IMPRESSION: Status post left hip joint injection with fluoro guidance Dictated by: Ha Alvarez MD 05/21/2020 06:57 Ha Alvarez MD in [place] 05/21/2020 06:57
--- NOTE | 2020-05-21 06:44 | P.PCN_ITS ---
[facility] Procedure Note Procedure Note:: Date of Procedure: 05/20/2020 Pre-procedure diagnosis: Osteoarthritis, left hip Post-procedure diagnosis: Same Procedure: Intra-articular corticosteroid injection, left hip Performed by: Silvano Low MD Bell Ringer/s: none Anesthesia: local; 10 cc 1% lidocaine w/o epinephrine Estimated Blood Loss: none Procedure Note: Intra-articular right hip injection: The patient presented to the radiology department and changed into a gown. Consent was reviewed and signed by both myself and the patient. All questions w ere answered. The patient was placed supine on the fluoroscopy table and the left hip exposed. The lateral hip and proximal thigh were prepped with multiple chlorhexidine sticks. Timeout was performed. Next, with the help of the p 3 armament/ordnance ima technician, the fluoro machine was brought in over the patient?s hip and a picture taken to confirm adequate visualization of the joint. I donned a pair of sterile surgical gloves; the remainder of the procedure was performed in a sterile fashion. A long spinal needle was held over the lateral aspect of the hip about the tip of the greater trochanter to approximate my desired entry point on the skin. Once this was established, a 25 G needle was used to infiltrate injection site and estimated needle track with total 10 cc 1% lidocaine w/o epinephrine. Once the injection site was anesthetized, a long 22- gauge spinal needle was advanced through deeper tissue towards the hip joint. Using fluoro, it was confirmed that the needle was advanced until it was at the level of the femoral neck. The stylus was removed from the spinal needle and 3cc of iodinated contrast solution was injected through the spinal needle. Fluoro was taken again, and the dye confirmed intra-capsular placement of the spinal needle, indicating a successful intraarticular injection. The syringe with contrast was removed, keeping the spinal needle in place, and a combination of 40 mg of Kenalog with 4 cc 1% lidocaine w/o epinephrine was injected through the needle into the hip joint. A final fluoro picture was taken, confirming successful intraarticular injection. The spinal needle was removed from the hip. Sterile dressings were applied over the needle puncture site. Patient tolerated the procedure well and there were no immediate complications. Patient reported good pain relief within a few minutes after the the injection. Specimens: none Condition/Disposition: good / home Complications: none
== END ==
PROVIDERS: PCP Family Medicine; Visit Provider Orthopaedic Surgery
DX: G89.29 Other chronic pain (principal); M17.12 Unilateral primary osteoarthritis, left knee; M25.552 Pain in left hip; M25.562 Pain in left knee; M16.12 Unilateral primary osteoarthritis, left hip
CPT/HCPCS: 20610; 77002; Q9967

== ENCOUNTER → 2020-06-16 09:57 | Outpatient (CLI) | payer MEDICARE, BC, SELFPAY ==
[2020-06-16 09:59] LABS: Microscopic, Urine URINE MICROSCOPIC (MICROSCOPIC)
--- NOTE | 2020-06-16 10:11 | XR_ITS ---
PROCEDURE: XR KNEE LT 4V CLINICAL INDICATION: Chronic knee pain COMPARISON: CR Knee L from 11/05/2018 CR XR KNEE LT 4V from 11/25/2018 CR XR KNEE LT 4V from 03/24/2020 FINDINGS: No fracture or dislocation. No lytic or blastic change. There is normal mineralization. There are mild osteoarthritic changes of the medial compartment and patellofemoral joint with small suprapatellar effusion. External templates are present for surgical planning. Other findings:None. IMPRESSION: Mild osteoarthritis with knee joint effusion Dictated by: Ha Alvarez MD 06/16/2020 17:09 Ha Alvarez MD in [place] 06/16/2020 17:09
[2020-06-16 10:33] LABS: Appearance,Urine CLEAR (Clear); Blood, Urine Negative (Negative); Color,Urine YELLOW (Yellow); Glucose,Urine (UA) Negative (Negative); Ketones,Urine Negative (Negative); Leukocyte Esterase,Urine Negative (Negative); Nitrate,Urine Negative (Negative); Protein,Urine Negative (Negative); Specific Gravity, Urine >= 1.030 (1.005-1.030); Urobilinogen,Urine 0.2 EU/dl (0.2)
[2020-06-16 10:37] LABS: Basophils # 0.1 K/mm3 (0-0.2); Basophils % 0.7 % (0.1-2.0); Eosinophils # 0.3 K/mm3 (0.0-0.4); Eosinophils % 3.9 % (0.1-12.0); Hematocrit 44.9 % (37.0-47.0); Hemoglobin 14.1 g/dL (12.2-16.2); Lymphocytes # 3.3 K/mm3 (0.7-4.5); Lymphocytes % 43.6 % (10-50); Mean Corpuscular HGB Conc 31.3 g/dL (31.8-35.4); Mean Corpuscular Hemoglobin 28.9 pg (27.0-31.2); Mean Corpuscular Volume 92.3 fl (81-99); Mean Platelet Volume 7.9 fl (7.4-10.4); Monocytes # 0.3 K/mm3 (0.1-1.0); Monocytes % 3.9 % (1.7-9.3); Neutrophils # 3.6 K/mm3 (1.8-7.8); Neutrophils % 47.8 % (37.0-80.0); Platelet Count 249 K/mm3 (142-424); Red Blood Count 4.87 M/mm3 (4.20-5.40); White Blood Count 7.4 K/mm3 (4.8-10.8)
[2020-06-16 10:44] LABS: Bilirubin,Urine Negative (Negative)
[2020-06-16 11:11] LABS: Bacteria,Urine 3+ /lpf; Squamous Epithelial Cell,Urine 20-50 #/hpf (0-5)
[2020-06-16 11:17] LABS: Chloride 106 mmol/L (98-107); Potassium 3.8 mmoL/L (3.5-5.1); Sodium 141 mmol/L (136-145)
[2020-06-16 11:19] LABS: Alanine Aminotransferase 23 U/L (12-78); Aspartate Amino Transferase 27 U/L (14-36); Blood Urea Nitrogen 18 mg/dl (7-17); Estimated Glomerular Filt Rate 46 ml/min (>60); GFR (African American) 56 ML/MIN (>60)
[2020-06-16 11:20] LABS: Albumin Level 4.4 g/dl (3.5-5.0); Albumin/Globulin Ratio 1.5 (1.1-1.8); Alkaline Phosphatase 70 U/L (38-126); Anion Gap 10.8 mEq/L (5-15); Bilirubin,Total 0.6 mg/dl (0.2-1.3); Calcium 9.9 mg/dl (8.4-10.2); Carbon Dioxide 28 mmol/L (22.0-30.0); Glucose 134 mg/dl (74-100); Total Protein,Serum 7.4 g/dl (6.3-8.2)
== END ==
PROVIDERS: Visit Provider Orthopaedic Surgery
DX: Z01.818 Encounter for other preprocedural examination (principal); M17.12 Unilateral primary osteoarthritis, left knee; R82.90 Unspecified abnormal findings in urine
CPT/HCPCS: 36415; 73564; 80053; 81001; 85025; 87086; 87088; 87186

== ENCOUNTER → 2020-06-19 14:06 | Outpatient (CLI) | payer MEDICARE, BC, SELFPAY ==
--- NOTE | 2020-06-21 14:50 | P.PN_ITS ---
[facility] Anesthesia Checklist - Structural Data Admitted From: Home Planned Operative Procedure/s: l tka Consent for Planned Operative Procedure(s) Verified: Yes - Additional verifications Anesthesia Reactions: No Hx Blood Transfusions: No Blood Transfusion Reaction: No - Airway Assessment C-Spine Mobility Assessed: Yes TMJ Mobility Assessed: Yes Dentition: Good Dentition - Neurological Assessment Level of Consciousness: Awake, Alert, Appropriate - Anesthesia Plan Anesthesia Risk discussed: Yes Anesthesia Plan: Verified ASA Class: III Anesthesia Type: Spinal [facility] History I have reviewed the patient's past medical history: Yes Medical History: Reports:: Asthma, Cancer (tumor of the spine), Gastroesophageal Reflux Disease(GERD), Hypertension Denies:: Chronic Obstructive Pulmonary Disease (COPD), Coronary Artery Disease, Diabetes Mellitus Type 1, Diabetes Mellitus Type 2, Internal Pacemaker, MRSA, Seizures *Have you ever received a pneumonia vaccine?: No *Have you received a flu vaccine this season?: Yes Other Medical History: Reports: Arthritis, Fibromyalgia, Hypothyroidism, Other. Denies: Blood Transfusion Reaction Anesthesia experience/problems:: none Laterality Cases: Left: Arthroscopy Knee, Bilateral: Carpal Tunnel Release, Other Other Surgeries: Yes: Appendectomy, Cholecystectomy, , Hysterectomy- Total, Other. No: Pacemaker Amputation: No Fractures: Yes (NASAL) - *Social History Smoking Status: Never smoker Alcohol Intake: never Alcohol Intake Frequency:: holidays/special occasions only Substance Use Type: denies use *Occupational Status:: disabled Housing: house Household Members: spouse *Travel in the last 8 weeks: Inside the [facility] Family Hx:: Cancer
== END ==
PROVIDERS: PCP Family Medicine; Visit Provider Orthopaedic Surgery
DX: Z01.818 Encounter for other preprocedural examination (principal); Z20.822 Contact with and (suspected) exposure to COVID-19; M17.12 Unilateral primary osteoarthritis, left knee
CPT/HCPCS: U0003

== ENCOUNTER 2020-06-21 18:20 | Observation (INO) | payer MEDICARE, BC, SELFPAY ==
[2020-06-17 14:35] VITALS: BMI 39.6
[2020-06-21] VITALS (16 sets, daily range): BP systolic 117–167; BP diastolic 66–93; PULSE 80–110; RESP 16–20; TEMP 6.1–43; O2SAT 97–100
--- NOTE | 2020-06-21 18:07 | XR_ITS ---
PROCEDURE: XR KNEE LT 3V CLINICAL INDICATION: Postop knee arthroplasty Follow-up knee replacement COMPARISON: CR Knee L from 11/05/2018 CR XR KNEE LT 4V from 11/25/2018 CR XR KNEE LT 4V from 03/24/2020 CR XR KNEE LT 4V from 06/16/2020 FINDINGS: Good alignment status post total knee replacement. No evidence of orthopedic complication. No acute fracture or dislocation. No lytic or blastic change. Postsurgical gas and sutures present. IMPRESSION: Good alignment status post total knee replacement Dictated by: Ha Alvarez MD 06/21/2020 20:22 Ha Alvarez MD in [place] 06/21/2020 20:22
--- NOTE | 2020-06-21 18:07 | HMH.ANESI ---
[facility] Anesthesia Record Part I Intake, IV Amount: 2,000 Estimated blood loss (mL): 50 Urine output (mL): 215 Blood Pressure: 120/71 SaO2: 99 Pulse Rate: 95 Respiratory Rate: 16 Temperature: 97.8 F Patient is:: Drowsy, Stable Stable to PACU at:: 18:00
--- NOTE | 2020-06-21 18:35 | HMH.OPNOTE ---
Date of procedure: 06/21/20 Pre-op Diagnosis:: Degenerative arthritis, left knee Post-op Diagnosis:: 1. Degenerative arthritis, left knee 2. Synovitis, left knee Procedure performed:: 1. Synovial tissue for biopsy, left knee 2. Uncemented total knee arthroplasty, left knee Surgeon:: Silvano Low MD Machine Rebuilder(s):: 1. Cheyanne Garland 2. summer BAKER HEAD:: Sai [place] [employer] Anesthesia: regional (Adductor canal block), spinal Estimated blood loss (mL): 50 Clinical Note:: Patient is 60 year old female admitted to hospital today after an uneventful left total knee arthroplasty. She has had chronic left knee pain which has failed to respond satisfactorily to prolonged nonsurgical management as well as arthroscopic knee surgery previously. Following evaluation in the office, patient elected to proceed with a total knee arthroplasty. X-rays of her knee joint showed mild to moderate degenerative changes over the medial and patellofemoral compartments. She continued to symptomatic and had extensive nonsurgical as well as arthroscopic intervention without significant benefit. The pain increases with walking, or standing for too long. She also reports night pain and sleep disturbance on a regular basis. Patient's mobility, quality of life and ADLs are adversely affected because of the knee pain. She also reports that the knee feels like it is giving out with risk of falls. Total knee arthroplasty is indicated to reduce the risk of falls, improve her pain and mobility and quality of life. The surgical and nonsurgical alternatives were discussed in detail with the patient as well as the risks and benefits of the surgery. Please refer to my office note for full details. Operative findings:: As noted on the preoperative evaluation and the x-rays, the medial and patellofemoral compartments are showing degenerative changes with focal areas of full-thickness bone loss. The medial meniscus is degenerate. There is osteophyte formation over medial and patellofemoral compartments. Also there is florid synovitis the samples of which were obtained for microbiology and histopathology. Bone quality is good. Operative note:: On the day of the surgery the patient and her were seen in the preoperative area. I have again reviewed the clinical and x-ray findings and again discussed the diagnosis, natural history and management options in detail including both nonsurgical and surgical. Patient has end-stage degenerative arthritis of the left knee and has failed to respond satisfactorily to appropriate conservative management so far and has opted for a total knee arthroplasty. The left knee joint is stiff and painful, and is limiting mobility, ADLs and quality of life. Also the knee gives out and patient is at risk of falls resulting in fractures. I have again discussed the details of the procedure, risks and benefits and alternatives in detail. The complications discussed include but are not limited to infection, injury to nerves and blood vessels including injury to popliteal artery, injury to tendons and ligaments, DVT and PE, fat embolism, intraoperative fracture, limb length inequality, patella fracture, patellofemoral instability, patellar clunk syndrome, quadriceps and patellar tendon rupture, implant failure, component loosening, periprosthetic femur and tibia fractures, stiffness /arthrofibrosis, limp, incomplete relief of pain, incomplete functional recovery, likely need for further surgery in future including revision and anesthetic complications including heart attack, stroke and even . We also discussed about the likely need for blood transfusion and transfusion reactions. We discussed how any of these events can be devastating. We have discussed nonsurgical alternatives as well. Patient understands and wishes to proceed with a left total knee arthroplasty as planned and I believe that he is fully informed as to the risks, benefits, and alt
[2020-06-21 19:14] LABS: Microscopic,Cath URINE MICROSCOPIC (MICROSCOPIC)
[2020-06-21 19:17] LABS: Appearance,Urine/Cath CLOUDY (Clear); Bilirubin,Cath Negative (Negative); Blood, Urine/Cath Negative (Negative); Color,Urine/Cath YELLOW (Yellow); Glucose,Urine/Cath (UA) Negative (Negative); Ketones,Urine/Cath Negative (Negative); Leukocyte Esterase,Cath Negative (Negative); Nitrate,Cath Negative (Negative); Protein,Urine/Cath TRACE (Negative); Specific Gravity, Urine/Cath >= 1.030 (1.005-1.030); Urobilinogen,Cath 0.2 EU/dl (0.2)
--- NOTE | 2020-06-21 19:26 | HMH.ORTHHP ---
*Admission Date: 06/21/20 *Reason for consult:: S/p total knee arthroplasty, left *History of present illness: Patient is 60 year old female admitted to hospital today after an uneventful left total knee arthroplasty. She has had chronic left knee pain which has failed to respond satisfactorily to prolonged nonsurgical management as well as arthroscopic knee surgery previously. Following evaluation in the office, patient elected to proceed with a total knee arthroplasty. X-rays of her knee joint showed mild to moderate degenerative changes over the medial and patellofemoral compartments. She continued to symptomatic and had extensive nonsurgical as well as arthroscopic intervention without significant benefit. The pain increases with walking, or standing for too long. She also reports night pain and sleep disturbance on a regular basis. Patient's mobility, quality of life and ADLs are adversely affected because of the knee pain. She also reports that the knee feels like it is giving out with risk of falls. Total knee arthroplasty is indicated to reduce the risk of falls, improve her pain and mobility and quality of life. The surgical and nonsurgical alternatives were discussed in detail with the patient as well as the risks and benefits of the surgery. Please refer to my office note for full details. [facility] History I have reviewed the patient's past medical history: Yes Medical History: Reports:: Asthma, Cancer (SPINAL), Gastroesophageal Reflux Disease(GERD), Hypertension Denies:: Chronic Obstructive Pulmonary Disease (COPD), Coronary Artery Disease, Diabetes Mellitus Type 1, Diabetes Mellitus Type 2, Internal Pacemaker, MRSA, Seizures *Have you ever received a pneumonia vaccine?: No *Have you received a flu vaccine this season?: Yes Other Medical History: Reports: Arthritis, Fibromyalgia, Hypothyroidism, Other. Denies: Blood Transfusion Reaction Laterality Cases: Left: Arthroscopy Knee, Bilateral: Carpal Tunnel Release, Other Other Surgeries: Yes: Appendectomy, Cholecystectomy, , Hysterectomy-Total, Other. No: Pacemaker Amputation: No Fractures: Yes (NASAL) - *Social History Last grade of school completed: High school graduate Smoking Status: Never smoker Alcohol Intake: never Alcohol Intake Frequency:: holidays/special occasions only Substance Use Type: denies use *Occupational Status:: disabled Housing: house Household Members: spouse *Travel in the last 8 weeks: None Family Hx:: Cancer Review of Systems - Review of Systems Review of systems:: pertinent systems reviewed and negative unless documented below - Constitutional Denies anorexia, Denies body ache(s), Denies chills, Denies fever(s) - Eyes Denies change in vision - ENT Denies abnormal hearing, Denies difficulty swallowing - *Cardiovascular Denies chest pain, Denies shortness of breath - *Respiratory Denies chest congestion, Denies shortness of breath - *Gastrointestinal Denies abdominal pain, Denies change in bowel habits - *Musculoskeletal Reports abnormal walking, Reports joint pain, Reports joint swelling, Reports limited joint movement - *Neurologic Reports abnormal walking, Denies burning sensations, Denies seizure-like activity, Denies tingling/numbness/burning sensations - Endocrine Denies cold intolerance, Denies heat intolerance - Hematologic/Lymphatic Denies easy bleeding, Denies easy bruising Meds Home Medications Medication Instructions Recorded Confirmed Type Albuterol Sulfate [Ventolin HFA 2 puff INHALATION Q4-6H PRN 10/07/17 06/03/21 History Inhaler] Cyclobenzaprine HCl [Flexeril 10mg 10 mg PO HS PRN 10/07/17 06/03/21 History tablet] Duloxetine HCl 60 mg PO BID 10/07/17 06/03/21 History Gabapentin [Neurontin 600mg 1,200 mg PO TID 10/07/17 06/03/21 History tablet] Ropinirole HCl [Requip] 1 mg PO HS 10/08/17 06/03/21 History Tramadol HCl [Ultram 50mg 50 mg PO TID PRN 10/08/17 06/03/21 History tablet]
[2020-06-21 20:05] LABS: WBC,Urine/Cath Occasional #/hpf (0-3)
[2020-06-21 20:06] LABS: Bacteria,Urine/Cath 2+ /lpf; Squamous Epithelial Ur./Cath Occasional #/hpf (0-5)
[2020-06-22] VITALS (7 sets, daily range): BP systolic 136–174; BP diastolic 73–93; PULSE 90–118; RESP 17–22; TEMP 36.4–37.2; O2SAT 95–99; BMI 39.4
--- NOTE | 2020-06-22 03:44 | PC.NURSE ---
pt A&O x4 and has slept on and off through the night. Pt has c/o of persitant pain the left knee, morphine, toradol, and norco have been given per mar and have helped keep the pain to a manageable level. Lungs are CTA, on room air. Pt has not been out of bed since returning from surgery. Left knee remains in stabilizer, unable to visualize surgical site. Pt has equal pedal pulses, cap refill <3 seconds, able to move toes on command. bowel sounds x4, abd soft and nontender. pulses equal, heart rate and rhythm regular. Pt spiked a slight temp of 99.5, tylenol given x1, blankets removed. Pt voiding clear yellow urine via balderrama. VSS, call light in reach, no concerns at this time.
--- NOTE | 2020-06-22 05:46 | PC.NURSE ---
ISRA balderrama this AM, pt voided in toilet. Pt able to ambulate with stand by and walker. Pt up to chair this AM.
--- NOTE | 2020-06-22 07:31 | HMH.PHAVTE ---
[facility] Pharmacy VTE Monitoring - Patient Demographics Admission date: 06/21/20 Report Date: 06/22/20 Time: 07:31 Allergies/Adverse Reactions: Patient Allergies No Known Drug Allergies [NO KNOWN DRUG ALLERGIES] Allergy (Unknown, Verified 06/21/20 10:00) Height: 1.63 m Weight: 104.78 kg Patient Problems: Current Active Problems Primary osteoarthritis of left knee (Acute) S/P total knee arthroplasty (Acute) - VTE Risk Was VTE Risk Assessment Performed: Yes VTE Score: 9 VTE Risk Level: Moderate Risk Clinical Trial Participant: No - Prophylaxis VTE Prophylaxis Ordered?: Yes Types of VTE Prophylaxis: IPCS Knee High, Pharmacological Pharmacologic Type: Other (XARELTO)
--- NOTE | 2020-06-22 07:42 | HMH.PHAINT ---
CLARIFIED HOME MED LIST WITH OUTPT PHARMACY
[2020-06-22 08:36] LABS: Basophils % 0.5 % (0.1-2.0); Eosinophils # 0.1 K/mm3 (0.0-0.4); Eosinophils % 1.8 % (0.1-12.0); Hematocrit 37.6 % (37.0-47.0); Lymphocytes # 1.6 K/mm3 (0.7-4.5); Lymphocytes % 22.2 % (10-50); Mean Corpuscular Hemoglobin 29.3 pg (27.0-31.2); Mean Corpuscular Volume 91.4 fl (81-99); Mean Platelet Volume 8.1 fl (7.4-10.4); Monocytes # 0.3 K/mm3 (0.1-1.0); Monocytes % 4.1 % (1.7-9.3); Neutrophils # 5.1 K/mm3 (1.8-7.8); Neutrophils % 71.3 % (37.0-80.0); Platelet Count 193 K/mm3 (142-424); Red Blood Count 4.11 M/mm3 (4.20-5.40); Red Cell Distribution Width 15.3 % (11.5-17.5); White Blood Count 7.1 K/mm3 (4.8-10.8)
[2020-06-22 08:38] LABS: Chloride 108 mmol/L (98-107); Potassium 3.9 mmoL/L (3.5-5.1); Sodium 139 mmol/L (136-145)
[2020-06-22 08:41] LABS: Anion Gap 6.9 mEq/L (5-15); Blood Urea Nitrogen 10 mg/dl (7-17); Calcium 8.5 mg/dl (8.4-10.2); Carbon Dioxide 28 mmol/L (22.0-30.0); Creatinine Clearance Estimated 101 mL/min (50-200); Estimated Glomerular Filt Rate 57 ml/min (>60); GFR (African American) 69 ML/MIN (>60); Glucose 178 mg/dl (74-100)
--- NOTE | 2020-06-22 10:12 | P.PN_ITS ---
[facility] Anesthesia Record Part II Discharge Time: 18:30 Destination: Second Floor PACU nurse assessment reviewed?: Yes Patient Condition:: Good Anesthesia Complications:: None Swallowing reflex intact?: Yes Cyanosis?: No Blood Pressure: 146/88 Pulse Rate: 91 Temperature: 97.6 F Mental Status: Alert & Oriented Pain level:: 0 Nausea and/or vomitting:: None Intake, IV Amount: 2,000
--- NOTE | 2020-06-22 10:17 | HMH.OTEV ---
OT Inpatient Evaluation Rehab OT IP Evaluation Start: 06/21/20 18:23 Freq: ONCE Status: Complete Protocol: Document 06/22/20 10:11 [facility] (Rec: 06/22/20 10:17 [facility] [id number]) Rehab OT IP Assessment Subjective History Pt oriented x 4 on arrival. Pt agreeable to engage in therapy evaluation. Pt was admitted on 06/21/20 after a TKA of L knee. Pt has a past medical history of Asthma, CA (spinal), GERD, and HTN. Pt reports prior to surgery she lived at home with her . Pt claims she was completely independent with ADLs and IADLs. Pt did not require AE at home. Pt did report she has ~16 steps to go upstairs to her bedroom. However, she is able to stay on first floor after returning home to avoid steps at this time. Subjective I really need to use the bathroom. Objective Patient Orientation Person,Place,Birthday,Year Upper Extremity Gross ROM WFL Transfer Training Sit/Stand Transfer Assist Level Contact Guard/Hand Hold Chair Transfer Ability Contact Guard/Hand Hold Chair Transfer Technique Sit to/from Ambulatory Chair Transfer Assistive Devices Rolling Walker Performing Toilet Hygiene Ability Standby Assistance Overall Commode/Toilet Transfer Ability Assistance x1 Commode/Toilet Transfer Technique Sit to/from Ambulatory Rehab OT IP prob,goals,plan Problems Date of Evaluation: 06/22/20 OT IP Problems Bed Mobility,Transfers,Gait, Balance,Self care,Safety Rehab Potential Rehab Potential Good Equipment Needs Assistive Devices Rolling / Wheeled Walker Plan OT intervention Plan Bed Mobility,Transfers,Gait, Balance,Self care,Safety, Therapeutic Exercise OT Plan Frequency Daily Duration LOS Discharge Goals Bed Mobility Ability Standby Assistance Sit to Stand Chair Transfer Ability Supervision/Stand by Chair Transfer Ability Supervision/Stand by Chair Transfer Technique Sit to/from Ambulatory Chair Transfer Assistive Devices Rolling Walker Self care skills fully toilet trained,uses utensils
--- NOTE | 2020-06-22 11:41 | HMH.PTEV ---
Physical Therapy Evaluation Rehab PT IP Evaluation Start: 06/21/20 18:23 Freq: ONCE Status: Active Protocol: Document 06/22/20 11:37 [facility] (Rec: 06/22/20 11:41 [facility] [id number]) Subjective/History History History This is theinitial IP PT evaluation for Sue Cardona. Pt is a 60 y/o female admitted to [facility] s/p L TKA. Pt suffered from degenerative arthritis and elected to have TKA. Subjective Subjective Pt reports I PLOF Rehab PT IP Eval Objective Appearance Patient Behavior Appropriate,Cooperative Patient Orientation Person,Place,Time Difficulty following instructions none Speech Pattern Clear,Appropriate Ambulation Patient Able to Ambulate Yes Ambulation Observation IP General Gait Pattern Observation Antalgic Gait Ambulation Distance (feet) 75 Ambulation Assistive Device Standard Walker Ambulation Ability Supervision/Stand by Balance Ability to Arise Able, uses arms to help Sitting Balance Steady, safe Standing Balance Steady, wide stance Dynamic Sitting Balance Ability Normal Dynamic Standing Balance Ability Fair Transfers Chair Transfer Ability Supervision/Stand by Sit to Stand Bed Transfer Ability Supervision/Stand by Sit to Stand Chair Transfer Ability Supervision/Stand by Pain Left Knee Pain Intensity 6 ROM LLE PT ROM Status ABN Abnormal ROM Comment mod limitation MMT LLE PT MMT ABN Abnormal MMT Grade 3-/5 Rehab PT IP prob,goals,plan Problems Date of Evaluation: 06/22/20 PT IP Problems Transfers,Gait,Balance,Self care Rehab Potential Rehab Potential Good Equipment Needs Assistive Devices Rolling / Wheeled Walker Plan PT Intervention Plan Transfers,Gait,Balance,Self care,Safety,Therapeutic Exercise PT Plan Frequency BID Duration LOS Discharge Goals Sit to Stand Chair Transfer Ability Supervision/Stand by Ambulation Assistive Device Rolling Walker Ambulation Distance (feet) 100 Discharge Plan PT Discharge Plan pt to dc home w/ spouse and HHPT, pt would benefit from transfer to OPPT as soon as possible to continue strengthening and regain function to
--- NOTE | 2020-06-22 13:24 | PC.NURSE ---
pt will need a rolling walker to assist with ambulation after having knee replacement yesterday
--- NOTE | 2020-06-22 13:43 | SW/DCPLANNER ---
SET UP HOME HEALTH WITH THIS PATIENT WITH [facility] TO BE SEEN IN THE AM.. PATIENT IS TO RECEIVE PT SERVICES... ALSO SENT REFERRAL FOR A ROLLING WALKER AND SHOWER BENCH TO BE DELIVERED TO THE HOSPITAL PRIOR TO DISCHARGE..
--- NOTE | 2020-06-22 14:53 | PC.NURSE ---
PT IS RESTING IN THE CHAIR. PT STATES SHE IS COMFORTABLE WITH BEING DISCHARGED. PT WILL HAVE HOME HEALTH WHEN SHE GOES HOME. PT HAS PARTICIPATED VERY WELL WITH PT/OT THIS SHIFT. PT HAS BEEN UP AMBULATING TO THE BATHROOM AND AROUND THE ROOM WITH WALKER. EATING AND DRINKING WELL. LUNG SOUNDS DIMINISHED. ABDOMEN SOFT/NON TENDER WITH ACTIVE BOWEL SOUNDS. PT STATED HER LAST BOWEL MOVEMENT WAS YESTERDAY. POLAR PACK NOTED TO THE LT KNEE. DRESSING C/D/I. PALPABLE PULSES. WILL CONTINUE TO MONITOR.
--- NOTE | 2020-06-22 16:36 | P.PN_ITS ---
Subjective Date: 06/22/20 Time: 12:30 Principal diagnosis: S/p total knee arthroplasty, left Interval history: Patient is status post left total knee arthroplasty post op day #1. Patient is sitting out in the chair. Patient says she is doing well and reports no major problems. She says she has minimal pain which is well controlled with as needed pain medication. No history of any nausea or vomiting. No history of any cough, chest pain, shortness of breath or palpitations. Patient says she is eating and drinking well. The indwelling catheter was removed this morning. PN: Obj Ex Vital signs: Temp Pulse Resp BP Pulse Ox 98.3 F 100 H 18 172/86 H 98 06/22/20 15:56 06/22/20 15:56 06/22/20 15:56 06/22/20 15:56 06/22/20 15:56 Narrative: Laboratory Results - last 24 hr 06/22/20 07:58: WBC 7.1, RBC 4.11 L, Hgb 12.0 L, Hct 37.6, MCV 91.4, MCH 29.3, MCHC 32.0, RDW 15.3, Plt Count 193, MPV 8.1, Neut % (Auto) 71.3, Lymph % (Auto) 22.2, Wilkin % (Auto) 4.1, Eos % (Auto) 1.8, Baso % (Auto) 0.5, Neut # (Auto) 5.1, Lymph # (Auto) 1.6, Wilkin # (Auto) 0.3, Eos # (Auto) 0.1, Baso # (Auto) 0.0 06/22/20 07:58: Sodium 139, Potassium 3.9, Chloride 108 H, Carbon Dioxide 28, Anion Gap 6.9, BUN 10, Creatinine 1.00, Estimated Creat Clear 101, Estimated GFR 57 L, Est GFR ( Amer) 69, Glucose 178 H, Calcium 8.5 Exam General appearance: alert, active, awake, no acute distress Cardiovascular: regular rate & rhythm, normal peripheral pulses Respiratory: No respiratory distress noted, speaks in full sentences ABD: soft and non tender Neuro: alert, awake, oriented x 3 Psych: Appropriate mood and affect for her situation On examination of the lower extremities the limb lengths are equal. On examination of the left knee the dressings are clean, dry and intact. Calf is soft and compressible. Distal pulses are 2+. Capillary refill is brisk. Sensation is intact to light touch throughout. She is actively moving the ankle, foot and the toes. I have changed the surgical dressings today and the incision is clean, dry and healthy. No soakage of dressings noted. Sterile dressings applied. - Urinary Catheter Management Curry Cath placed during this visit: no Progress Note: A&P (1) Primary osteoarthritis of left knee Status: Acute (2) S/P total knee arthroplasty Status: Acute Assessment and Plan for All Diagnoses:: I have reviewed the clinical indings and progress with the patient. I have given her a paper copy of the postoperative x-ray. Patient is seen by physical therapy and recommend continuation of standard postoperative rehab for the total knee replacement. Use knee immobilizer when weightbearing and walking until she regains full quadriceps control and is able to actively straight leg raise. She is doing very well postop and is cleared for discharge by physical therapy. Recommend continuation of DVT prophylaxis with Xarelto for 2 weeks. Discontinue IV fluids. Patient is cleared for discharge by physical therapy and she is keen to be discharged home with home health. Case management looking into discharge planning.
--- NOTE | 2020-06-22 21:13 | HMH.DCSUM ---
General - General Admission date:: 06/21/20 Discharge date: 06/22/20 HPI HPI: Patient is a 60-year-old female with degenerative joint disease of the left knee who is admitted to the hospital electively following an uncomplicated primary total knee arthroplasty on 06/21/2020. Prior to surgery patient had long-standing pain, stiffness and disability secondary to degenerative arthritis in her left knee. She has not responded well to conservative management including NSAID, Tylenol, and intra-articular injections as well as arthroscopic surgery in the past. She is using assistive walking devices. Total knee arthroplasty is indicated to reduce the risk of falls, improve her pain and mobility and quality of life. Her walking distance and ADLs are adversely affected; she also has history of night pain and sleep disturbance. The knee feels unstable and he is at risk of falling and injuring herself A total knee arthroplasty is indicated to reduce the risk of falls, improve the pain, mobility and quality of life. The surgical and nonsurgical alternatives were discussed in detail with the patient as well as the risks and benefits of the surgery. Refer to my office note for full details. Hospital Course Hospital Course: Patient underwent an uncomplicated primary left total knee arthroplasty on 06/21/2020. Following surgery patient was admitted to hospital and progressed well without any complications. The postoperative check x-ray was satisfactory with good alignment and fixation of the components. Patient progressed rapidly with physical therapy and was able to mobilize using a walker. After 1 day of hospital stay for observation, patient was discharged to home with home health on 06/22/2020. At the time of discharge she has not yet regained good quadriceps control and is not able to actively straight leg raise. Patient has minimal pain and her pain is well controlled with as needed oral medication. The incision is healthy and healing well. No signs of any erythema, induration or discharge noted. Patient was started on Xarelto 10 mg daily for DVT prophylaxis after surgery. The neurovascular status in both lower extremities is intact. Pedal pulses 2+ bilaterally and fully sensate distally. No clinical evidence of DVT noted. Patient was cleared for discharge by physical therapy. On the day of discharge, the patient has been stable. Patient's vital signs have been stable throughout and patient is afebrile at the time of discharge. She is being discharged home with home health. Condition at discharge: improved and stable. Treatments and Procedures: Total knee arthroplasty, left knee; date of surgery 06/21/2020. Objective Vital signs: Temp Pulse Resp BP Pulse Ox 98.3 F 100 H 18 172/86 H 98 06/22/20 15:56 06/22/20 15:56 06/22/20 15:56 06/22/20 15:56 06/22/20 15:56 no acute distress, obese - *Routine HEENT Exam Head: Present: normocephalic Eye: Present: EOMI ENT: Present: mucous membranes moist - *Routine Neck Exam Present: supple, full ROM - *Routine Respiratory Exam Present: CTA bilaterally - *Routine Cardiovascular Exam Present: RRR - *Routine Abdominal Exam Present: soft, normoactive bowel sounds. Absent: tenderness - *Routine Extremities Exam Comments: On examination of the lower extremities the limb lengths are equal. On examination of the left knee, the dressings are clean, dry and intact. I have changed the surgical dressings today and the incision is clean, dry and healthy. No bleeding or soakage of the dressings noted. No signs of infection or other complications are noted. There is minimal swelling and ecchymosis around the knee as to be expected at this stage. Knee range of movements is 5 to 70 degrees of flexion. Patient has not yet regained good quadriceps activation and is not able to actively straight leg raise. Calf is soft, compressible and nontender. Distal pulses are 2+. Capillary re
== END 2020-06-22 18:18 | disposition home health service (06) ==
LOC: 2ND 18:23
PROVIDERS: Admitting Provider Orthopaedic Surgery; PCP Family Medicine; Visit Provider Orthopaedic Surgery
PROC: (CPT 27447; principal; 2020-06-21 11:00)
DX: M17.12 Unilateral primary osteoarthritis, left knee (principal); I10 Essential (primary) hypertension; Z79.899 Other long term (current) drug therapy
CPT/HCPCS: 27447; 36415; 73562; 80048; 81001; 85025; 86850; 87070; 87086; 87205; 88305; 96374; 97161; 97166; 97535; C1776; G0378; J3370

== ENCOUNTER → 2020-06-29 10:54 | Outpatient (CLI) | payer MEDICARE, BC, SELFPAY ==
[2020-06-29 10:58] LABS: Microscopic, Urine URINE MICROSCOPIC (MICROSCOPIC)
[2020-06-29 11:04] LABS: Appearance,Urine CLEAR (Clear); Bilirubin,Urine Negative (Negative); Blood, Urine Negative (Negative); Color,Urine YELLOW (Yellow); Glucose,Urine (UA) Negative (Negative); Ketones,Urine Negative (Negative); Leukocyte Esterase,Urine Negative (Negative); Nitrate,Urine Negative (Negative); Protein,Urine Negative (Negative); Urobilinogen,Urine 0.2 EU/dl (0.2)
[2020-06-29 11:21] LABS: Squamous Epithelial Cell,Urine Occasional #/hpf (0-5)
== END ==
PROVIDERS: Visit Provider Family Medicine
DX: R30.0 Dysuria (principal)
CPT/HCPCS: 81001; 87086; 87088; 87186

== ENCOUNTER → 2020-07-20 14:44 | Outpatient (CLI) | payer MEDICARE, BC, SELFPAY ==
--- NOTE | 2020-07-20 14:46 | XR_ITS ---
PROCEDURE: XR KNEE LT 3V CLINICAL INDICATION: TKA post Total left knee arthroplasty follow-up COMPARISON: CR XR KNEE LT 4V from 11/25/2018 CR XR KNEE LT 4V from 03/24/2020 CR XR KNEE LT 4V from 06/16/2020 CR XR KNEE LT 3V from 06/21/2020 FINDINGS: Status post total knee replacement with good alignment. No fracture or dislocation. No evidence of orthopedic complication. No lytic or blastic change. Thin hyperdensity noted in the suprapatellar region may be due to small sutures. IMPRESSION: Status post total knee replacement with good alignment and no acute finding Dictated by: Ha Alvarez MD 07/20/2020 15:33 Ha Alvarez MD in [facility] 07/20/2020 15:33
== END ==
PROVIDERS: PCP Family Medicine; Visit Provider Orthopaedic Surgery
DX: M25.562 Pain in left knee; Z96.652 Presence of left artificial knee joint
CPT/HCPCS: 73562

== ENCOUNTER → 2020-08-04 13:40 | Outpatient (CLI) | payer MEDICARE, BC, SELFPAY ==
--- NOTE | 2020-08-04 13:45 | XR_ITS ---
PROCEDURE: XR SHOULDER RT MIN 2V CLINICAL INDICATION: RT shoulder pain COMPARISON: DX XR SHOULDER RT MIN 2V from 09/23/2019 CR XR SHOULDER RT MIN 2V from 10/07/2019 FINDINGS: No fracture or dislocation. No lytic or blastic change. There is normal mineralization. Mild osteoarthritic changes are present at the glenohumeral joint. The AC joint has an unremarkable appearance. No significant subacromial stenosis. Other findings:None. IMPRESSION: No change mild osteoarthritis of the right glenohumeral joint Dictated by: Ha Alvarez MD 08/04/2020 14:03 Ha Alvarez MD in [place] 08/04/2020 14:03
== END ==
PROVIDERS: PCP Family Medicine; Visit Provider Orthopaedic Surgery
DX: M25.511 Pain in right shoulder (principal)
CPT/HCPCS: 73030

== ENCOUNTER 2020-08-18 14:00 | Outpatient (RCR) | payer MEDICARE, BC, SELFPAY ==
--- NOTE | 2020-07-23 15:46 | HMH.PTOPEV ---
PT Outpatient Evaluation Rehab PT Outpatient Evaluation Start: 07/23/20 14:59 Freq: Status: Active Protocol: Document 07/23/20 15:29 TIMO (Rec: 07/23/20 15:46 TIMO [id number]) Electronically Signed By David Dekcer, PT 07/23/20 15:29 Outpatient Therapy Subjective History Subjective History Patient is a 60 year old female presenting to outpatient PT with reports of L post-surgical knee pain S/P L TKA 06/21/20 (4W/4D S/P). Patient has previously been receiving home health PT services. Comorbidities include hx of thoracic spinal tumor excision with neuropathy , OA, B CTR, bunionectomy and HTN. Chief Complaint Pain,Stiff,Swelling Symptom Type Ache,Throb Symptoms Relieved By Rest/Positioning,Ice, Prescription Meds Symptoms Aggravated By Standing,Physical Activity, Walking Prior Functional Limitations Standing,Walking Current Functional Limitations Housework,Standing,Squatting, Recreation Activity,Walking, Stairs,Balance Symptom Description Constant but Variable Level of pain today (0-10) 3 Pain scale - at its best (0-10) 3 Pain scale - at its worst (0-10) 6 Hip/Knee Eval Gait Observation General Gait Pattern Observation Antalgic Gait,Decrease Weight Bear (L) Assistive Device Assistive Devices None / NA Palpation Tenderness left Knee Palpation Finding Tenderness Knee Palpation Overall Comment L medial joint line/pes anserene 3/4 Hip Palpation Findings Tenderness MMT Hip Flexion Strength Grade 4 Good Hip Abduction Strength Grade 4- Good- Hip Adduction Strength Grade 4- Good- Hip Extension Strength Grade 4- Good- Hip External Rotation Strength Grade 4- Good- Hip Internal Rotation Strength Grade 4- Good- Knee Extension Strength Grade 3+ Fair+ Knee Flexion Strength Grade 4- Good- ROM Hip ROM Reason Not Measured Within Functional Limits Knee Extension Active Range of Motion ( -7 degrees) Knee Extension Passive Range of Motion ( -3 degrees) Knee Flexion Active Range of Motion ( 92 degrees) Knee Flexion Passive Range of Motion ( 105 degrees) Special Tests Knee Valgus Stress Test Negative Left Knee Varus Stress Test
== END 2020-08-18 14:05 | disposition home or self-care (01) ==
LOC: PT 14:00
PROVIDERS: PCP Family Medicine; Visit Provider Orthopaedic Surgery
DX: M25.562 Pain in left knee (principal); Z96.652 Presence of left artificial knee joint
CPT/HCPCS: 97014; 97110; 97140; 97163; G0283

== ENCOUNTER → 2020-09-10 13:30 | Outpatient (CLI) | payer MEDICARE, BC, SELFPAY ==
--- NOTE | 2020-09-10 13:33 | MM_ITS ---
PROCEDURE INFORMATION: Exam: MG Screening 3D Mammography Exam date and time: 09/10/2020 1:33 PM Age: 60 years old Clinical indication: Encounter for screening mammogram for malignant neoplasm of breast TECHNIQUE: Imaging protocol: Screening tomosynthesis and 2D mammography including computer-aided detection (CAD) when performed. COMPARISON: 1. MG SCBI MM Dig screening mamm BI w/CAD 11/13/2017 10:35 AM 2. MG DMSB DIG MAMM-SCREEN CRISTINO W/CAD 05/23/2016 11:09 AM FINDINGS: MAMMOGRAPHY: Breast composition: The breast tissue is composed of scattered areas of fibroglandular density. Mass: None. Architectural distortion: None. Calcifications: No suspicious calcifications. Asymmetric density: None. Skin thickening: None. Axillary adenopathy: None. IMPRESSION: No mammographic evidence of malignancy. Annual screening is recommended unless otherwise clinically indicated. ASSESSMENT: BI-RADS Category 1: Negative
== END ==
PROVIDERS: PCP Family Medicine; Visit Provider Family Medicine
DX: Z12.31 Encounter for screening mammogram for malignant neoplasm of breast (principal)
CPT/HCPCS: 77063; 77067

== ENCOUNTER → 2020-10-12 13:16 | Outpatient (CLI) | payer MEDICARE, BC, SELFPAY ==
--- NOTE | 2020-10-12 13:21 | XR_ITS ---
PROCEDURE: XR KNEE LT 2V CLINICAL INDICATION: sp LT TKA, dos 06/21/20 COMPARISON: CR XR KNEE LT 4V from 03/24/2020 CR XR KNEE LT 4V from 06/16/2020 CR XR KNEE LT 3V from 06/21/2020 CR XR KNEE LT 3V from 07/20/2020 FINDINGS: Good alignment status post total knee replacement Prosthesis has an unremarkable appearance. There remains a few scattered linear opacities along the distal thigh anteriorly and may be due to sutures. There is some minimal calcification along the anterior and proximal aspect of the tibial prosthesis Other findings:None. IMPRESSION: S/p total knee replacement with good alignment Dictated by: Ha Alvarez MD 10/12/2020 13:47 Ha Alvarez MD in [place] 10/12/2020 13:47
== END ==
PROVIDERS: PCP Family Medicine; Visit Provider Orthopaedic Surgery
DX: M25.562 Pain in left knee; Z96.652 Presence of left artificial knee joint
CPT/HCPCS: 73560

== ENCOUNTER → 2021-03-01 11:48 | Outpatient (CLI) | payer MEDICARE, BC, SELFPAY ==
--- NOTE | 2021-03-01 11:52 | XR_ITS ---
PROCEDURE: XR LUMBAR SPINE MIN 4V CLINICAL INDICATION: LOW BACK PAIN COMPARISON: CR LS5 LUMBAR SPINE 5 VIEWS from 11/17/2016 FINDINGS: Mild lumbar scoliosis convex left. Surgical clips right upper quadrant. No fracture or dislocation. No lytic or blastic change. There is mild wedge contour of L3 which is chronic. Small endplate osteophytes are noted. There is mild degenerative disc disease at L2-L3. IMPRESSION: Mild degenerative changes, no acute finding with no significant change Dictated by: Ha Alvarez MD 03/01/2021 14:03 Ha Alvarez MD in [place] 03/01/2021 14:03
== END ==
PROVIDERS: PCP Family Medicine; Visit Provider Family Medicine
DX: M54.50 Low back pain, unspecified (principal)
CPT/HCPCS: 72110

== ENCOUNTER → 2021-03-07 10:28 | Outpatient (POV) | payer MEDICARE, BC, SELFPAY ==
[2021-03-07 10:34] VITALS: BP 188/104; PULSE 110; RESP 20; TEMP 36.3; O2SAT 96; BMI 40.3
--- NOTE | 2021-03-07 10:58 | HMH.PMCON ---
Assessment and Plan (1) Low back pain Status: Chronic Category: Medical Code(s): M54.50 - Low back pain, unspecified (2) Mid back pain Status: Chronic Category: Medical Code(s): M54.9 - Dorsalgia, unspecified - Assessment and plan all Dx Assessment and Plan for all problems:: Patient is here today for consultation for low back pain made worse with prolonged standing and bending forward. She does have a positive Kemps test, but does not have any recent imaging. She does have a history since visiting with us of a thoracic spinal tumor. We will send her for an MRI of her thoracic and lumbar spine and plan to follow-up with her afterwards to discuss a further plan of care. Patient has been instructed to contact the clinic with any concerns before the next appointment. Dr. Ramos has reviewed this note and agrees with this plan of care. This note was dictated using voice recognition software and make contain errors or omissions. HPI - Data of Consult Patient: new to practice Consult date: 03/07/21 Requesting Physician: Jil Overton APRN - Consult Narrative Reason for consult: Mid to low back pain History of present illness: Ms. Cardona is a 60 year old female who presents today for consultation for low back pain. The patient was previously seen in our clinic years ago for injective therapy. At that time she did have medial branch blocks and RFA's for which she got significant relief up to 3 years. She says that she has low back pain at this time that radiates from side to side. The pain is made worse with prolonged standing in 1 position as well as bending forward. She does rate her pain a 6 or 7 out of 10 with the intake nurse today. 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 Mosher. Since then she does have routine PET scans which have been unremarkable. Patient has tried physical therapy for more than 6 weeks with limited relief. She currently takes Celebrex which is giving her minimal relief. She describes her pain as aching and burning in nature. She denies any changes in bowel or bladder habit. She denies any saddle anesthesia. She does have a history of numbness from the waist down since having the thoracic tumor removed. She does also report to have a history of fibromyalgia. CC: Jil Ovetron APRN [facility] History I have reviewed the patient's past medical history: Yes Medical History: Reports:: Asthma, Gastroesophageal Reflux Disease(GERD), Hypertension Denies:: Cancer, Chronic Obstructive Pulmonary Disease (COPD), Coronary Artery Disease, Diabetes Mellitus Type 1, Diabetes Mellitus Type 2, Internal Pacemaker, MRSA, Seizures *Have you ever received a pneumonia vaccine?: No *Have you received a flu vaccine this season?: Yes Other Medical History: Reports: Arthritis, Fibromyalgia, Hypothyroidism, Other. Denies: Blood Transfusion Reaction Laterality Cases: Left: Arthroscopy Knee, Total Knee Replacement, Bilateral: Carpal Tunnel Release, Other Other Surgeries: Yes: Appendectomy, Cholecystectomy, (x3), Hysterectomy-Total, Other. No: Pacemaker Amputation: No Fractures: Yes (NASAL) - *Social History Smoking Status: Never smoker Alcohol Intake: never Alcohol Intake Frequency:: holidays/special occasions only Substance Use Type: denies use *Occupational Status:: other Housing: house Household Members: other *Travel in the last 8 weeks: None Family Hx:: Cancer Review of Systems - Review of Systems Review of Systems General: No recent weight changes, no fever, no sleep disturbances Respiratory: No cough, no shortness of air, no recurring pulmonary infections Cardiovascular/peripheral vascular: No chest pain, no palpitations, no edema, no shortness of breath Gastrointestinal: No new onset incontinence, normal bowel movements reported Genitourinary: No new onset incontinence Musculoskeletal: Low
== END ==
PROVIDERS: Visit Provider Clinical Nurse Specialist Family Health
DX: M54.50 Low back pain, unspecified (principal)
CPT/HCPCS: 99202; G0463

== ENCOUNTER → 2021-03-10 14:31 | Outpatient (CLI) | payer MEDICARE, BC, SELFPAY ==
--- NOTE | 2021-03-10 14:35 | MR_ITS ---
PROCEDURE: MR THORACIC SPINE WO CON CLINICAL INDICATION: BACK PAIN History of an intramedullary ependymoma with pain, surgery in 2016 COMPARISON: No exams were available for comparison TECHNIQUE: Routine multiplanar multi echo sequences are performed without gadolinium enhancement. FINDINGS: Previous exams are not available for comparison. There is normal alignment. No acute fracture or dislocation. Small focal area of increased T1 and T2 signal is present involving the T3 vertebral body suggesting a hemangioma at approximately 9 mm. 12 mm area of increased T2 signal involves the superior aspect of T9 with stippled areas of decreased intensity suggesting a hemangioma. There is dorsal deviation of the cord posteriorly at the T5-T6 level with slight increase in T2 signal involving the cord at this area. No obvious mass. Evaluation is limited for tumor recurrence without IV contrast. Also unable to determine if these findings have progressed. There was reported myelomalacic changes on an older exam of 11/05/2020. Prior laminectomy at T5-T6. There are mild degenerative changes of the thoracic spine with mild disc desiccation and small anterior osteophytes. No obvious extruded herniated disc. No obvious extradural defects. Minimal bulging disc noted at T11-T12 without impingement. IMPRESSION: 1. Postsurgical changes at T5-T6 with dorsal deviation of the cord and thinning of the cord at this level with increased T2 signal also of the cord. No obvious extradural masses. Correlation with old studies needed to determine any change. 2. Mild degenerative changes of the thoracic spine. 3. 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
--- NOTE | 2021-03-10 14:35 | MR_ITS ---
PROCEDURE: MR LUMBAR SPINE WO CON CLINICAL INDICATION: BACK PAIN COMPARISON: CR XR LUMBAR SPINE MIN 4V from 03/01/2021 TECHNIQUE: Standard multiplanar multiecho sequences are performed without contrast. 3-D MIP and myelographic images are also rendered and reviewed FINDINGS: There is normal alignment. Spinal cord ends at the T12-L1 level. T11-T12: Mild degenerative disc disease. T12-L1: Mild degenerative disc disease. L1-L2: Mild degenerative disc disease with facet ligamentum hypertrophic change. L2-L3: Mild degenerative disc disease with circumferential bulging disc along with facet and ligamentum hypertrophy with mild right lateral recess narrowing and mild bilateral foraminal narrowing. L3-L4: Minimal circumferential bulging disc with facet and ligamentum hypertrophy with mild bilateral foraminal narrowing. L4-5: Minimal circumferential bulging disc with moderate facet and ligamentum hypertrophy and mild bilateral foraminal narrowing. L5-S1: Moderate facet and ligamentum hypertrophic change with moderate right and left foraminal narrowing. No extruded herniated disc. No obvious intra or extradural mass. IMPRESSION: Multilevel lumbar spondylosis with bulging disc and facet and ligamentum hypertrophy with varying degrees of foraminal narrowing. Please see above for detailed description at each level. Dictated by: Ha Alvarez MD 03/11/2021 10:19 Ha Alvarez MD in [place] 03/11/2021 10:19
== END ==
PROVIDERS: PCP Family Medicine; Visit Provider Clinical Nurse Specialist Family Health
DX: M54.6 Pain in thoracic spine (principal); M54.50 Low back pain, unspecified
CPT/HCPCS: 72146; 72148; 76376

== ENCOUNTER → 2021-03-22 14:25 | Outpatient (CLI) | payer MEDICARE, BC, SELFPAY ==
--- NOTE | 2021-03-22 14:28 | XR_ITS ---
PROCEDURE: XR SHOULDER LT MIN 2V CLINICAL INDICATION: left shoulder pain COMPARISON: DX XR SHOULDER RT MIN 2V from 09/23/2019 CR XR SHOULDER RT MIN 2V from 10/07/2019 CR XR SHOULDER RT MIN 2V from 08/04/2020 FINDINGS: No fracture or dislocation. No lytic or blastic change. There is normal mineralization. MILD OSTEOARTHRITIC CHANGE OF THE GLENOHUMERAL JOINT AND ACROMIOCLAVICULAR JOINT. NO SIGNIFICANT SUBACROMIAL STENOSIS. Other findings:None. IMPRESSION: MILD OSTEOARTHRITIS OF THE GLENOHUMERAL JOINT AND ACROMIOCLAVICULAR JOINT Dictated by: Ha Alvarez MD 03/22/2021 15:39 Ha Alvarez MD in [place] 03/22/2021 15:39
== END ==
PROVIDERS: PCP Family Medicine; Visit Provider Orthopaedic Surgery
DX: M25.512 Pain in left shoulder (principal)
CPT/HCPCS: 73030

== ENCOUNTER → 2021-03-24 09:57 | Outpatient (POV) | payer MEDICARE, BC, SELFPAY ==
[2021-03-24 10:24] VITALS: PULSE 108; RESP 18; O2SAT 97; BMI 39.4
--- NOTE | 2021-03-24 12:43 | HMH.PAINSOAP ---
[facility] Pain Management SOAP Note Subjective:: Patient is a 60-year-old white female who is following up after an MRI. Patient says that she is having pain in her low back area radiating into bilateral lower extremities. Leaning forward is giving the patient relief. She says she is having heaviness and weakness in her lower extremities and is having frequent sensations of feeling like she is going to fall. The patient also has significant history of bilateral foot pain. She has had injections to her feet as well as can theology taping for her feet. She does use compounding cream for her feet as well. She says that she is gotten minimal relief with pain in her bilateral feet. She does rate her pain a 6 or 7 out of 10 today. She has had medial branch block/facet joint injections as well as RFA in our clinic in the past. This gave her relief for up to 3 years. She does feel that the pain is somewhat different, however. She does have a history of having a laminectomy L5-L6 with Dr. Mosher in 2016. She also has routine PET scans due to a tumor at this area in the past. Her PET scans have been normal. She has been taking Celebrex with minimal relief. She says the pain is aching and burning in nature. She denies any changes in bowel or bladder habit. She denies any saddle anesthesia. She does have a history of numbness from the waist down since having the thoracic tumor removed. She also has a history of fibromyalgia. She is here today to follow-up with her MRI results. Review of Systems General: No recent weight changes, no fever, no sleep disturbances Respiratory: No cough, no shortness of air, no recurring pulmonary infections Cardiovascular/peripheral vascular: No chest pain, no palpitations, no edema, no shortness of breath Gastrointestinal: No new onset incontinence, normal bowel movements reported Genitourinary: No new onset incontinence Musculoskeletal: Low back pain with radiation into bilateral lower extremities with heaviness and weakness bilateral lower extremities with Psychiatric: [Normal mood/affect] Neurological: Weakness bilateral lower extremities Objective:: Physical exam General: Alert and oriented x3, no acute distress, pleasant and cooperative Lungs: Respirations even and unlabored, symmetrical chest expansion Eyes: PERRL Musculoskeletal: Flexion and extension of lumbar [spine] somewhat guarded secondary to pain, [antalgic gait noted] Neurological: Speech clear, no gross sensory deficit Assessment:: Degenerative disc disease lumbar spine with lumbar radiculopathy symptoms, spinal stenosis with neurogenic claudication symptoms Plan:: The patient and I did review her MRI today. The patient is having low back pain with radiation into bilateral lower extremities with heaviness and weakness as well as pain in bilateral feet. The patient's MRI does note the patient to have ligamentum flavum hypertrophy. She does have lumbar facet arthropathy as well as spondylosis, but reports to be getting relief when leaning forward. She is having significant weakness in her lower extremities to the point that she feels she is going to fall. She also has significant foot pain. We discussed options with the patient today. She would like to proceed with an injection with epidurogram to determine if she is a candidate for mild procedure. While she does have low back pain, she does have significant lower extremity symptoms as well. We will schedule her for a lumbar epidural steroid injection at L4-L5 area with an epidurogram. If she is not considered a mild candidate, and gets minimal relief with the injection, she may be a candidate for spinal cord stimulation. I did give the patient educational information regarding both procedures. She is open to all options for pain management. She is not diabetic and is not on any anticoagulation therapy. We will follow up with her after her epidural with epidurogram for furthe
== END ==
PROVIDERS: Visit Provider Clinical Nurse Specialist Family Health
DX: M51.16 Intervertebral disc disorders with radiculopathy, lumbar region (principal); M48.062 Spinal stenosis, lumbar region with neurogenic claudication
CPT/HCPCS: 99212; G0463

== ENCOUNTER 2021-04-13 11:36 | Day surgery (SDC) | payer MEDICARE, BC, SELFPAY ==
[2021-04-13 11:52] VITALS: BP 135/80; PULSE 124; RESP 20; TEMP 36.6; O2SAT 98; BMI 39.4
[2021-04-13 12:20] VITALS: BP 140/82; PULSE 100; RESP 18; O2SAT 98
[2021-04-13 12:21] VITALS: BP 140/82; PULSE 102; RESP 18; O2SAT 98
--- NOTE | 2021-04-13 12:22 | HMH.PMPROC ---
- Procedure Date: 04/13/21 Time: 12:22 Anesthesiologist:: Zay Ramos MD Complications:: None Pre-procedure Diagnosis:: Degenerative disc disease of lumbar spine with lumbar radiculopathy symptoms Post-procedure Diagnosis:: Same Indications for Procedure:: This patient is a pleasant 60-year-old white female who we are treating for low back pain with lumbar radiculopathy symptoms. She has increasing pain in her low back across the low back into the hips. She has done well with previous epidural steroid injections. Her pain is starting to return. She presents for repeat lumbar epidural steroid injection under fluoroscopy today. Procedure Details:: Informed consent was obtained and the risk and benefits of the procedure was explained to the patient. The patient was taken to the procedure room. The patient was placed prone on the procedure table. The patient was prepped and draped in sterile fashion. C-arm fluoroscopy was used to view the lumbar spine. Skin and subcutaneous tissues were anesthetized using lidocaine. I placed an 18-gauge epidural needle and advanced into the L5-S1 interspace using fluoroscopic guidance and [id number] to air. After confirmation of needle placement in the epidural space with dye I injected 2 mL of lidocaine 1.5% with Depo-Medrol 80 mg. Patient tolerated the procedure well with no complications. Plan and Disposition:: We will follow-up with her in 2 weeks. Will reevaluate symptoms at that time.
[2021-04-13 12:28] VITALS: BP 111/76; PULSE 96; RESP 20; O2SAT 98
== END 2021-04-13 12:26 | disposition home or self-care (01) ==
LOC: SC.PAINP 11:37
PROVIDERS: PCP Family Medicine; Visit Provider Anesthesiology
DX: M51.16 Intervertebral disc disorders with radiculopathy, lumbar region (principal); I10 Essential (primary) hypertension; J45.909 Unspecified asthma, uncomplicated; K21.9 Gastro-esophageal reflux disease without esophagitis; E06.3 Autoimmune thyroiditis; M19.90 Unspecified osteoarthritis, unspecified site; Z96.659 Presence of unspecified artificial knee joint
CPT/HCPCS: 62323; J1040; Q9966

== ENCOUNTER → 2021-04-22 13:53 | Outpatient (CLI) | payer MEDICARE, BC, SELFPAY ==
--- NOTE | 2021-04-22 14:00 | XR_ITS ---
FINAL REPORT CLINICAL HISTORY: CHEST PAIN,UPPER ABD PAIN FINDINGS: Two views of the chest were obtained. The heart size and pulmonary vascularity are within normal limits. The mediastinum is normal. No acute pulmonary abnormality is identified. There is no pneumothorax. The bony thorax is intact. IMPRESSION: No active cardiopulmonary disease. Reviewed, Interpreted and Dictated by Scooby Santos III, MD Transcribed by Kandice Pike Authenticated by Scooby Santos III, MD on 04/22/2021 03:04:44 PM [facility]
--- NOTE | 2021-04-22 14:00 | XR_ITS ---
FINAL REPORT CLINICAL HISTORY: left shoulder pain since Nov FINDINGS: LEFT SHOULDER Three views demonstrate no acute fracture or dislocation. There is mild acromioclavicular and glenohumeral joint degenerative change. The visualized bony structures are well aligned. No soft tissue abnormality is seen. IMPRESSION: Mild degenerative changes. Reviewed, Interpreted and Dictated by Scooby Snatos III, MD Transcribed by Kandice Pike Authenticated by Scooby Santos III, MD on 04/22/2021 03:04:47 PM [facility]
== END ==
PROVIDERS: PCP Family Medicine; Visit Provider Family Medicine
DX: M25.512 Pain in left shoulder (principal); R07.9 Chest pain, unspecified; R10.10 Upper abdominal pain, unspecified
CPT/HCPCS: 71046; 73030

== ENCOUNTER → 2021-05-02 09:12 | Outpatient (POV) | payer MEDICARE, BC, SELFPAY ==
--- NOTE | 2021-05-02 09:44 | HMH.PAINSOAP ---
[facility] Pain Management SOAP Note Subjective:: Patient is a pleasant 61-year-old female who comes in here today for follow-up after a lumbar epidural steroid injection #1 on 04/13/21. Patient is currently being treated for degenerative disc disease of the lumbar spine with lumbar radiculopathy. After the procedure, patient says that she had about 80-90% relief on her low back pain. She denies any issues after the procedure. Today, she is complaining of right hip pain that has been going on for months. She says the pain is localized to her right buttock that radiates down to her posterior and lateral thigh. Pain is worse with prolonged activity. Patient has tried a TENS unit in the past that did not help her pain when she is hooked up to the TENS unit but the pain comes back when she turns it off. She rates her pain today as 1/10. She is currently taking gabapentin 600 mg 6 times a day that is prescribed by Dr. Alvarado. Her Obed number is [id number] with an active morphine equivalent of 0. ODT is 0, low risk. Review of Systems General: No recent weight changes, no fever, no sleep disturbances Respiratory: No cough, no shortness of air, no recurring pulmonary infections Cardiovascular/peripheral vascular: No chest pain, no palpitations, no edema, no shortness of breath Gastrointestinal: No new onset incontinence, normal bowel movements reported Genitourinary: No new onset incontinence Musculoskeletal: Improving low back pain, right hip pain Psychiatric: [Normal mood/affect] Neurological: [Denies weakness in extremities], [denies balance issues] Objective:: Physical exam General: Alert and oriented x3, no acute distress, pleasant and cooperative Lungs: Respirations even and unlabored, symmetrical chest expansion Eyes: PERRL Musculoskeletal: Flexion and extension of lumbar [spine] somewhat guarded secondary to pain; Right hip has positive shaquille, samuel's, compression, and distraction. Right greater trochanter is tender to palpation. Neurological: Speech clear, no gross sensory deficit Assessment:: Degenerative disc disease of the lumbar spine with lumbar radiculopathy symptoms Right sacroiliitis Right greater trochanteric bursitis Plan:: Patient had significant relief after the lumbar injection of about 80%-90%. Patient will call our clinic to schedule another lumbar epidural steroid injection in the future. Today, patient is complaining of right hip pain. Her physical exam is consistent with right sacroiliitis and right greater trochanteric bursitis. We will schedule the patient for right SI injection and right greater trochanteric bursa injection. Risks and benefits of the procedure have been explained to the patient. Patient would like to proceed with the procedure. Dr. Ramos has reviewed this note and agrees with this plan of care. This note was dictated using voice recognition software and make contain errors or omissions. [facility] History Medical History: Reports:: Asthma, Gastroesophageal Reflux Disease(GERD), Hypertension Denies:: Cancer, Chronic Obstructive Pulmonary Disease (COPD), Coronary Artery Disease, Diabetes Mellitus Type 1, Diabetes Mellitus Type 2, Internal Pacemaker, MRSA, Seizures *Have you ever received a pneumonia vaccine?: No *Have you received a flu vaccine this season?: Yes Other Medical History: Reports: Arthritis, Fibromyalgia, Hypothyroidism, Thyroid Disease, Other. Denies: Blood Transfusion Reaction Laterality Cases: Left: Arthroscopy Knee, Bilateral: Carpal Tunnel Release, Other Other Surgeries: Yes: Appendectomy, Cholecystectomy, , Hysterectomy-Total, Other. No: Pacemaker Amputation: No Fractures: Yes (NASAL) - *Social History Smoking Status: Never smoker Alcohol Intake: never Alcohol Intake Frequency:: holidays/special occasions only Substance Use Type: denies use *Occupational Status:: disabled Housing: house Household Members: other *Travel in the last 8 weeks: Inside the [facility]
== END ==
PROVIDERS: Visit Provider Clinical Nurse Specialist Family Health
DX: M51.16 Intervertebral disc disorders with radiculopathy, lumbar region (principal); M46.1 Sacroiliitis, not elsewhere classified
CPT/HCPCS: 99212; G0463

== ENCOUNTER 2021-06-03 10:32 | Day surgery (SDC) | payer MEDICARE, BC, SELFPAY ==
[2021-06-03 10:35] VITALS: BP 140/79; PULSE 114; RESP 18; TEMP 36.3; O2SAT 99; BMI 40.3
[2021-06-03 11:13] VITALS: BP 155/73; PULSE 111; RESP 20; O2SAT 98
[2021-06-03 11:14] VITALS: BP 152/72; PULSE 100; RESP 20; O2SAT 98
[2021-06-03 11:21] VITALS: BP 127/88; PULSE 110; RESP 20; O2SAT 99
--- NOTE | 2021-06-03 11:51 | P.PCN_ITS ---
- Procedure Date: 06/03/21 Time: 11:51 Anesthesiologist:: Ibis Coyne MD Complications:: None Pre-procedure Diagnosis:: Right-sided sacroiliitis, chronic low back pain, right-sided hip pain Post-procedure Diagnosis:: Same Indications for Procedure:: Patient is a pleasant 61-year-old white female who presents today with right- sided hip pain and low back pain related to the above diagnosis. She has tried and failed conservative treatment with oral pain medications and injection form for greater than 6 weeks. She has previously had a lumbar epidural steroid injection on April 13, 2021 and she states that this injection provided her significant pain relief with her chronic low back pain but did not help with her right buttock pain that radiates down to the posterior and lateral aspect of her right thigh. The plan for today is for the patient to undergo right-sided SI joint injection under fluoroscopy Procedure Details:: Right SI joint injection under fluoroscopy Informed consent was obtained and the risks and benefits of the procedure was going to the patient. Patient was taken to the procedure room. Patient was placed prone on the procedure table. The right hip was prepped using ChloraPrep. The skin and subcutaneous tissues were anesthetized using lidocaine. I placed a 22-gauge spinal needle into the inferior aspect of the right SI joint. Needle placement was confirmed with dye. After this we injected 5 mL bupivacaine 0.25% and Depo-Medrol 40 mg into the right SI joint. The patient tolerated the procedure well with no complication. Plan and Disposition:: I discussed with the patient that we will follow up with her in 2 weeks and reevaluate pain symptoms at that time. Should you continue experience lateral thigh pain we will perform trochanteric bursa injection under fluoroscopy at that time.
== END 2021-06-03 11:23 | disposition home or self-care (01) ==
LOC: SC.PAINP 10:33
PROVIDERS: PCP Family Medicine; Visit Provider Anesthesiology Pain Medicine
DX: M46.1 Sacroiliitis, not elsewhere classified (principal); M54.50 Low back pain, unspecified; G89.29 Other chronic pain; M25.551 Pain in right hip
CPT/HCPCS: 27096; G0260; Q9966

== ENCOUNTER → 2021-06-23 10:58 | Outpatient (POV) | payer MEDICARE, BC, SELFPAY ==
[2021-06-23 11:23] VITALS: BP 153/97; PULSE 116; RESP 20; TEMP 36.5; O2SAT 97; BMI 41.5
--- NOTE | 2021-06-23 12:14 | HMH.PAINSOAP ---
[facility] Pain Management SOAP Note Subjective:: Patient is a pleasant 61-year-old female who is here for a follow up after right SI injection on June 03, 2021. Patient is currently being treated for right sacroiliitis. After the procedure, patients reports significant relief about 80 to 90%. Says that this lasted for about a week. And rates pain today at 3 out of 10. Patient denies any issues after the procedure. Patient states that she had a right SI RFA in 2014 which helped really well. At the moment, we are doing SI injections because it has been a while since she has had her SI injections. She is also complaining of left SI pain. We are also treating this patient for chronic low back pain. She had a lumbar epidural steroid injection in the last month. Pain management, she is taking gabapentin 600 mg 6 times a day that is prescribed by an outside clinic. [facility] number [phone] with an active morphine equivalent 0. Drug screens have been reviewed and appropriate. General: No recent weight changes, no fever, no sleep disturbances Respiratory: No cough, no shortness of air, no recurring pulmonary infections Cardiovascular/peripheral vascular: No chest pain, no palpitations, no edema, no shortness of breath Gastrointestinal: No new onset incontinence, normal bowel movements reported Genitourinary: No new onset incontinence Musculoskeletal: Low back pain, bilateral SI pain Psychiatric: [Normal mood/affect] Neurological: [Denies weakness in extremities], [denies balance issues] Objective:: General: Alert and oriented x3, no acute distress, pleasant and cooperative, [on room air] Lungs: Respirations even and unlabored, symmetrical chest expansion Eyes: PERRL Musculoskeletal: Bilateral hips/SI are positive for BRAD, Carl's, compression, and distraction. Neurological: Speech clear, no gross sensory deficit Assessment:: Bilateral sacroiliitis Degenerative disc disease of the lumbar spine with lumbar radiculopathy symptoms Plan:: Patient had a 9200% relief after her right SI injection. She has had a right SI RFA in 2014 which helped a lot. It has been a while since she had a series of SI injection, we are doing a couple of SI injections. We will schedule the patient for a bilateral SI injection. Risks and benefits of the procedure have been explained to the patient. Patient would like to proceed with the procedure. The patient continues to get temporary relief from these injections. We will consider doing another RFA of her SI. Patient has been instructed to contact the clinic with any concerns before the next appointment. Dr. Ramos has reviewed this note and agrees with this plan of care. This note was dictated using voice recognition software and make contain errors or omissions. [facility] History Medical History: Reports:: Asthma, Gastroesophageal Reflux Disease(GERD), Hypertension Denies:: Cancer, Chronic Obstructive Pulmonary Disease (COPD), Coronary Artery Disease, Diabetes Mellitus Type 1, Diabetes Mellitus Type 2, Internal Pacemaker, MRSA, Seizures *Have you ever received a pneumonia vaccine?: No *Have you received a flu vaccine this season?: Yes Other Medical History: Reports: Arthritis, Fibromyalgia, Hypothyroidism, Thyroid Disease, Other. Denies: Blood Transfusion Reaction Laterality Cases: Left: Arthroscopy Knee, Bilateral: Carpal Tunnel Release, Other Other Surgeries: Yes: Appendectomy, Cholecystectomy, , Hysterectomy-Total, Other. No: Pacemaker Amputation: No Fractures: Yes (NASAL) - *Social History Smoking Status: Never smoker Alcohol Intake: never Alcohol Intake Frequency:: holidays/special occasions only Substance Use Type: denies use *Occupational Status:: other Housing: house Household Members: spouse *Travel in the last 8 weeks: None Family Hx:: No significant family history
== END ==
PROVIDERS: Visit Provider Student in an Organized Health Care Education/Training Program
DX: M46.1 Sacroiliitis, not elsewhere classified (principal); M51.16 Intervertebral disc disorders with radiculopathy, lumbar region
CPT/HCPCS: 99212; G0463

== ENCOUNTER 2021-08-26 07:51 | Day surgery (SDC) | payer MEDICARE, BC, SELFPAY ==
[2021-08-26 08:09] VITALS: BP 140/86; PULSE 102; RESP 20; TEMP 36.3; O2SAT 97; BMI 40.8
[2021-08-26 08:53] VITALS: BP 93/69; PULSE 81; RESP 18
[2021-08-26 08:54] VITALS: BP 93/69; PULSE 85; RESP 18; O2SAT 98
--- NOTE | 2021-08-26 08:55 | P.PCN_ITS ---
- Procedure Date: 08/26/21 Time: 08:55 Anesthesiologist:: Juan R Mack CRNA Complications:: None Pre-procedure Diagnosis:: Bilateral sacroiliitis Post-procedure Diagnosis:: Same Indications for Procedure:: Very pleasant 61-year-old female who has had significant improvement in the past with bilateral SI joint injections. She presents today for repeat injections. She rates her bilateral posterior hip pain 8/10. She has extreme point tenderness over the bilateral SI joints. She reports pain intensifies when walking and or sitting for any length of time. Procedure Details:: Procedure: Bilateral sacroiliac joint injections under fluoroscopy Informed consent was obtained and the risks and benefits of the procedure were explained to the patient.~ The patient was taken to the procedure room and noninvasive monitors were placed including a noninvasive blood pressure cuff and pulse oximeter.~ The patient was placed prone on the procedure table. Both hips were cleansed using Betadine as a cleansing solution. C-arm fluoroscopy was used to view the right sacroiliac joint.~ The skin and subcutaneous tissues were anesthetized using lidocaine 1.5% and a 25-gauge needle.~ After this, a 22-gauge spinal needle was inserted under fluoroscopic guidance into the inferior aspect of the right sacroiliac joint.~ Omnipaque dye was injected and good spread was seen throughout the joint.~ After this, approximately 5 mL of bupivacaine, 0.25% and Depo-Medrol, 40 mg was incrementally injected into the right sacroiliac joint. We then moved to the left sacroiliac joint.~ The skin and subcutaneous tissues were anesthetized using lidocaine 1.5% and a 25-gauge needle.~ After this, a 22- gauge spinal needle was inserted under fluoroscopic guidance into the inferior aspect of the left sacroiliac joint.~ Omnipaque dye was injected and good spread was seen throughout the joint. After this, approximately 5 mL of bupivacaine, 0.25% and Depo-Medrol, 40 mg was incrementally injected into the left sacroiliac joint.~ The patient tolerated the procedure well with no complications. The patient was observed in the Pain Clinic and then was discharged home neurologically intact. Plan and Disposition:: Patient was discharged without incident.
[2021-08-26 09:20] VITALS: BP 131/80; PULSE 93; RESP 20; O2SAT 96
== END 2021-08-26 09:20 | disposition home or self-care (01) ==
LOC: SC.PAINP 07:52
PROVIDERS: PCP Family Medicine; Visit Provider Nurse Anesthetist, Certified Registered
DX: M46.1 Sacroiliitis, not elsewhere classified (principal); J45.909 Unspecified asthma, uncomplicated; K21.9 Gastro-esophageal reflux disease without esophagitis; I10 Essential (primary) hypertension; M19.90 Unspecified osteoarthritis, unspecified site; E03.9 Hypothyroidism, unspecified; M79.7 Fibromyalgia
CPT/HCPCS: 27096; G0260; J1040

== ENCOUNTER → 2021-09-13 10:15 | Outpatient (POV) | payer MEDICARE, BC, SELFPAY ==
[2021-09-13 10:22] VITALS: BP 145/90; PULSE 113; RESP 20; TEMP 36.9; O2SAT 97; BMI 41.1
--- NOTE | 2021-09-13 11:09 | HMH.PAINSOAP ---
[facility] Pain Management SOAP Note Subjective:: Patient is a pleasant 61-year-old female who presents today for follow-up after a bilateral SI injection on August 26, 2021. Patient is currently being treated for bilateral sacroiliitis, degenerative disc disease of lumbar spine with lumbar radiculopathy symptoms. After procedure, patient had significant relief for 1 to 2 days. Historically, patient only gets minimal relief after each SI injections. She had a right SI RFA in 2014 that significantly helped. Today, she is still complaining of pain with any prolonged activity such as sitting, standing, and walking. She has trouble getting up from a sitting position. Most of her pain is still on the right SI but she still has some pain on her left. Rates pain today as 5 out of 10. In the past, we also have done lumbar epidural steroid injection that has helped the patient. For pain, patient is taking gabapentin 600 mg 6 times a day that is prescribed by an outside clinic. Obed [id number] with an active morphine equivalent of 0. Patient was also recently started on hydrocortisone po. She says that her adrenal gland is not functioning as well. Review of Systems: General: No recent weight changes, no fever, no sleep disturbances Respiratory: No cough, no shortness of air, no recurring pulmonary infections Cardiovascular/peripheral vascular: No chest pain, no palpitations, no edema, no shortness of breath Gastrointestinal: No new onset incontinence, normal bowel movements reported Genitourinary: No new onset incontinence Musculoskeletal: Low back pain, bilateral hip pain Psychiatric: [Normal mood/affect] Neurological: [Denies weakness in extremities], [denies balance issues] Objective:: Physical Exam: General: Alert and oriented x3, no acute distress, pleasant and cooperative Lungs: Respirations even and unlabored, symmetrical chest expansion Eyes: PERRL Musculoskeletal: Flexion and extension of lumbar [spine] somewhat guarded secondary to pain, [antalgic gait noted]; bilateral SI are positive for BRAD, Carl's, [place]'s, [place]'s, compression, and distraction. Neurological: Speech clear, no gross sensory deficit Assessment:: Sacroiliitis, degenerative disease of lumbar spine with lumbar radiculopathy symptoms Plan:: Patient has had 2 bilateral SI injections that significantly helped her discomfort but only temporarily. We will schedule the patient for a right SI RFA. Risk and benefits of this procedure been discussed with the patient. Patient would like to proceed with this procedure. We will schedule her for a left SI RFA after this procedure. Patient has been instructed to contact the clinic with any concerns before the next appointment. Dr. Ramos has reviewed this note and agrees with this plan of care. This note was dictated using voice recognition software and make contain errors or omissions. [facility] History Medical History: Reports:: Asthma, Gastroesophageal Reflux Disease(GERD), Hypertension Denies:: Cancer, Chronic Obstructive Pulmonary Disease (COPD), Coronary Artery Disease, Diabetes Mellitus Type 1, Diabetes Mellitus Type 2, Internal Pacemaker, MRSA, Seizures *Have you ever received a pneumonia vaccine?: No *Have you received a flu vaccine this season?: Yes Other Medical History: Reports: Arthritis, Fibromyalgia, Hypothyroidism, Thyroid Disease, Other. Denies: Blood Transfusion Reaction Laterality Cases: Left: Arthroscopy Knee, Bilateral: Carpal Tunnel Release, Other Other Surgeries: Yes: Appendectomy, Cholecystectomy, , Hysterectomy-Total, Other. No: Pacemaker Amputation: No Fractures: Yes (NASAL) - *Social History Smoking Status: Never smoker Alcohol Intake: never Alcohol Intake Frequency:: holidays/special occasions only Substance Use Type: denies use *Occupational Status:: unemployed Housing: house Household Members: spouse *Travel in the last 8 weeks: None Family Hx:: No significant family history
== END ==
PROVIDERS: Visit Provider Student in an Organized Health Care Education/Training Program
DX: M51.16 Intervertebral disc disorders with radiculopathy, lumbar region (principal); M46.1 Sacroiliitis, not elsewhere classified
CPT/HCPCS: 99212; G0463

== ENCOUNTER 2021-09-20 14:10 | Day surgery (SDC) | payer MEDICARE, BC, SELFPAY ==
[2021-09-20 14:18] VITALS: BP 119/83; BP 173/91; PULSE 113; PULSE 95; RESP 18; RESP 20; TEMP 36.6; O2SAT 98; BMI 41.1
[2021-09-20 14:37] VITALS: BP 140/88; PULSE 97; RESP 18; O2SAT 98
--- NOTE | 2021-09-20 14:37 | HMH.PMPROC ---
- Procedure Date: 09/20/21 Time: 14:37 Anesthesiologist:: Juan R Mack CRNA Complications:: None Pre-procedure Diagnosis:: Chronic right sacroiliitis. Post-procedure Diagnosis:: Same Indications for Procedure:: Pleasant 61-year-old female who presents today for right sacroiliac joint ablation. Patient has had this treatment in the past with significant improvement. However, her symptoms have returned. She has extreme point tenderness over the bilateral SI joints. Right greater than left. Patient describes the pain as dull, aching. She rates the pain 8/10 today. Procedure Details:: Details of the procedure were explained to the patient. The patient was taken to the procedure room placed in the prone position. The area over the right posterior hip was cleaned using chlorhexidine as a cleansing solution. Under fluoroscopy 2 markers were placed over the SI joint at the midway point. The skin and subcutaneous tissue was anesthetized using 1% lidocaine and a 25-gauge needle. Using fluoroscopy guidance to RFA needles were advanced to the medial border of the SI joint at the middle of the joint. 3 cc of 1% lidocaine and 25 mg of Depo-Medrol was injected in each after negative aspiration. At this time after sensory and motor negative stimulation. The the frequency was used at 80?C x 60 seconds. At the end of this time the needles were removed inferior on the joint. 3 cc of solution as before was injected at each level. The radiofrequency was repeated at 80 ?C x 60 seconds. Patient tolerated the procedure without difficulty. There are no complications. Plan and Disposition:: Patient was discharged without incident.
== END 2021-09-20 14:38 | disposition home or self-care (01) ==
LOC: SC.PAINP 14:11
PROVIDERS: PCP Family Medicine; Visit Provider Nurse Anesthetist, Certified Registered
DX: M46.1 Sacroiliitis, not elsewhere classified (principal)
CPT/HCPCS: 64625; 76000; J1040

== ENCOUNTER → 2021-10-06 13:50 | Outpatient (POV) | payer MEDICARE, BC, SELFPAY ==
--- NOTE | 2021-10-06 14:56 | HMH.PAINSOAP ---
[facility] Pain Management SOAP Note Subjective:: Patient is a pleasant 61-year-old female who presents today for follow-up from right SI joint ablation. Patient is currently being treated for degenerative disc disease of lumbar spine with lumbar radiculopathy symptoms, and bilateral sacroiliitis. She rates her pain at 3 out of 10 today. She states that she has had 60% Relief from the sacroiliac joint ablation. She states her pain is now more midline. Patient describes her pain as a dull ache that is constant but worsens with activity. Patient has had multiple injective therapy in the past. Patient takes gabapentin 1200 mg 3 times daily for neuropathy symptoms from her primary care provider. She has also taken tramadol 50 mg twice daily and Flexeril. Patient states her primary care provider is no longer prescribing the tramadol however it was helped her significantly in the past with her pain. Patient would like to try taking this medication again. Her Obed is [id number]. It has been reviewed and is appropriate. Review of Systems: General: No recent weight changes, no fever, no sleep disturbances Respiratory: No cough, no shortness of air, no recurring pulmonary infections Cardiovascular/peripheral vascular: No chest pain, no palpitations, no edema, no shortness of breath Gastrointestinal: No new onset incontinence, normal bowel movements reported Genitourinary: No new onset incontinence Musculoskeletal: Low back pain Psychiatric: [Normal mood/affect] Neurological: [Denies weakness in extremities], [denies balance issues] Objective:: Physical Exam: General: Alert and oriented x3, no acute distress, pleasant and cooperative Lungs: Respirations even and unlabored, symmetrical chest expansion Eyes: PERRL Musculoskeletal: Flexion and extension of lumbar [spine] somewhat guarded secondary to pain, [antalgic gait noted] Neurological: Speech clear, no gross sensory deficit Assessment:: Bilateral sacroiliitis, degenerative disc disease of lumbar spine with lumbar radiculopathy symptoms Plan:: Patient has had significant relief from right sacroiliac joint ablation. Patient has point tenderness midline lumbar region during evaluation today. She has had lumbar epidural steroid injections in the past. Patient states that in previous she had gotten a few weeks relief with this injection. I have discussed with the patient about scheduling for another LESI. Risks and benefits were discussed and patient would like to proceed forward. We will schedule her for a LESI L5-S1. We will also prescribe tramadol 50 mg twice daily with a 30-day supply. Patient's Obed did not show tramadol in her history. At her next follow-up visit we will do a urine drug screen. Patient has been instructed to contact the clinic with any concerns before the next appointment. Dr. Ramos has reviewed this note and agrees with this plan of care. This note was dictated using voice recognition software and make contain errors or omissions. [facility] History I have reviewed the patient's past medical history: Yes Medical History: Reports:: Asthma, Gastroesophageal Reflux Disease(GERD), Hyperlipidemia, Hypertension Denies:: Cancer, Chronic Obstructive Pulmonary Disease (COPD), Coronary Artery Disease, Diabetes Mellitus Type 1, Diabetes Mellitus Type 2, Internal Pacemaker, MRSA, Seizures *Have you ever received a pneumonia vaccine?: No *Have you received a flu vaccine this season?: Yes Other Medical History: Reports: Arthritis, Fibromyalgia, Hypothyroidism, Thyroid Disease, Other. Denies: Blood Transfusion Reaction Laterality Cases: Left: Arthroscopy Knee, Bilateral: Carpal Tunnel Release, Other Other Surgeries: Yes: Appendectomy, Cholecystectomy, , Hysterectomy-Total, Other. No: Pacemaker Amputation: No Fractures: Yes (NASAL) - *Social History Smoking Status: Never smoker Alcohol Intake: never Alcohol Intake Frequency:: holidays/special occasions only Substance Use Type: denies
[2021-10-06 16:30] VITALS: BP 153/90; PULSE 93; RESP 20; TEMP 36.9; O2SAT 100; BMI 40.3
== END ==
PROVIDERS: Visit Provider Student in an Organized Health Care Education/Training Program
DX: M51.16 Intervertebral disc disorders with radiculopathy, lumbar region (principal); M46.1 Sacroiliitis, not elsewhere classified
CPT/HCPCS: 99212; G0463

== ENCOUNTER 2021-10-18 09:54 | Day surgery (SDC) | payer MEDICARE, BC, SELFPAY ==
[2021-10-18 10:04] VITALS: BP 145/85; PULSE 117; RESP 18; TEMP 36.2; O2SAT 97; BMI 41.5
[2021-10-18 10:09] VITALS: BP 135/85; PULSE 75; RESP 18; O2SAT 98; O2SAT 99
--- NOTE | 2021-10-18 10:16 | P.PCN_ITS ---
- Procedure Date: 10/18/21 Time: 10:16 Anesthesiologist:: Juan R Mack CRNA Complications:: None Pre-procedure Diagnosis:: Denerative disc disease lumbar spine. Lumbar radiculopathy symptoms. Post-procedure Diagnosis:: Same Indications for Procedure:: Patient is a very pleasant 61-year-old female that presents to our clinic today for lumbar epidural steroid injection at L5-S1 level. Patient states her low back pain intensifies with standing or walking for any length of time. She complains of bilateral hip and leg radicular symptoms. She rates her pain 8/10. Patient is recently status post right SI joint ablation. She states she is doing very well since having that. Procedure Details:: Procedure: Lumbar epidural steroid injection under fluoroscopy Informed consent was obtained and the risks and benefits of the procedure were explained to the patient. The patient was taken to the procedure room and noninvasive monitors placed, including noninvasive blood pressure cuff and pulse oximeter. The back was viewed using C-arm Fluoroscopy and prepped using Betadine as a cleansing solution and the L5-S1 interspace was palpated. Skin and subcutan eous tissues were anesthetized using lidocaine 1.5% and a 25-gauge needle. After this, an 18-gauge Touhy epidural needle was placed into the L5-S1 interspace and advanced using fluoroscopic guidance and loss of resistance to air until the epidural space was encountered. After confirmation of needle placement in the epidural space, with dye, a solution containing lidocaine 1.5%, 4 mL and Depo-Medrol 80 mg were incrementally injected into the lumbar epidural space. The patient tolerated the procedure well with no complications. The patient was observed in the Pain Clinic and then discharged home neurologically intact. Plan and Disposition:: Patient was discharged without incident.
[2021-10-18 10:30] VITALS: BP 136/83; PULSE 104; RESP 20; O2SAT 96
== END 2021-10-18 10:31 | disposition home or self-care (01) ==
LOC: SC.PAINP 09:55
PROVIDERS: PCP Family Medicine; Visit Provider Nurse Anesthetist, Certified Registered
DX: M51.16 Intervertebral disc disorders with radiculopathy, lumbar region (principal)
CPT/HCPCS: 62323; 76000; J1040

== ENCOUNTER → 2021-11-07 10:59 | Outpatient (CLI) | payer MEDICARE, BC, SELFPAY ==
--- NOTE | 2021-11-07 11:02 | MM_ITS ---
PROCEDURE INFORMATION: Exam: MG Bilateral Screening 3D Mammography Exam date and time: 11/07/2021 10:54 AM Age: 61 years old Clinical indication: Screening examination TECHNIQUE: Imaging protocol: Bilateral Screening tomosynthesis and 2D mammography including computer-aided detection (CAD) when performed. COMPARISON: 1. MG MM DIG SCREENING MAMM BI W/CAD 09/10/2020 1:35 PM 2. MG SCBI MM Dig screening mamm BI w/CAD 11/13/2017 10:35 AM FINDINGS: MAMMOGRAPHY: Breast composition: The breasts are almost entirely fatty. Mass: None. Architectural distortion: None. Calcifications: No suspicious calcifications. Asymmetric density: None. Skin thickening: None. Axillary adenopathy: None. IMPRESSION: No mammographic evidence of malignancy. Annual screening is recommended unless otherwise clinically indicated. ASSESSMENT: BI-RADS Category 1: Negative
[2021-11-07 16:07] LABS: Barbiturates Screen,Urine Negative ng/ml (<200)
[2021-11-07 16:08] LABS: Benzodiazepines Screen,Urine Negative ng/ml (<200)
[2021-11-07 16:09] LABS: Amphetamine/Metha Screen,Urine Negative ng/ml (<1000); Cannabinoid Screen,Urine Negative ng/ml (<50)
[2021-11-07 16:10] LABS: Cocaine Screen,Urine Negative ng/ml (<300)
[2021-11-07 16:11] LABS: Methadone Screen,Urine Negative ng/ml (<300); Opiate Screen,Urine Negative ng/ml (<300)
[2021-11-07 16:32] LABS: Phencyclidine Screen,Urine Negative ng/ml (<25)
[2021-11-17 14:11] LABS: Opiates Negative (Cutoff=100)
== END ==
PROVIDERS: Student in an Organized Health Care Education/Training Program; PCP Family Medicine; Visit Provider Family Medicine
DX: Z12.31 Encounter for screening mammogram for malignant neoplasm of breast (principal); Z79.891 Long term (current) use of opiate analgesic
CPT/HCPCS: 77063; 77067; 80305; 80361; 80365; G0480

== ENCOUNTER → 2021-11-07 14:26 | Outpatient (POV) | payer MEDICARE, BC, SELFPAY ==
--- NOTE | 2021-11-07 14:53 | HMH.PAINSOAP ---
[facility] Pain Management SOAP Note Subjective:: Patient is a pleasant 61-year-old female who presents today for follow-up. Patient is currently being treated for degenerative disc disease of lumbar spine with lumbar degloved the symptoms, sacroiliitis. We have been managing this patient with conservative and injective therapy. We previously did a sacroiliac joint ablation that continues to provide relief. When we last saw this patient, we did a lumbar epidural steroid injection. Patient states that she had significant relief of 70 to 80% on this injection for about a week. She has continued to have relief from this injection today. Most of her pain is around her right lower mid back just above her injection site. Denies any recent falls or traumas. Rates her pain today as 3 out of 10. For pain, she is currently taking tramadol 50 mg twice a day but is prescribed by this clinic. She is needing refills on his medication. She is also seeing a cutch cleaner every 6 months for her generalized pains. [facility] [phone] with an active morphine equivalent of 10. Review of Systems: General: No recent weight changes, no fever, no sleep disturbances Respiratory: No cough, no shortness of air, no recurring pulmonary infections Cardiovascular/peripheral vascular: No chest pain, no palpitations, no edema, no shortness of breath Gastrointestinal: No new onset incontinence, normal bowel movements reported Genitourinary: No new onset incontinence Musculoskeletal: Low back pain Psychiatric: [Normal mood/affect] Neurological: [Denies weakness in extremities], [denies balance issues] Objective:: Physical Exam: General: Alert and oriented x3, no acute distress, pleasant and cooperative Lungs: Respirations even and unlabored, symmetrical chest expansion Eyes: PERRL Musculoskeletal: Flexion and extension of lumbar [spine] somewhat guarded secondary to pain, [antalgic gait noted]; tender to palpation around the right lumbar paraspinous at the T12/L1 vertebral body Neurological: Speech clear, no gross sensory deficit Assessment:: Myofascial pain, degenerative disc disease of lumbar spine with lumbar radiculopathy symptoms, sacroiliitis Plan:: Patient is tender to palpation around the right lumbar paraspinous muscles at the level of T12/L1 vertebral bodies. We will schedule the patient for trigger point injections in this area. Patient has a trip planned for [place] at the beginning of December so she wants these injections done prior to her trip. I will also start the patient on a compounding cream that she can use for her generalized muscle and knee pain. We will continue her tramadol 50 mg twice a day and provide the patient with 3 months worth of refill on this medication. I will also refill the patient's lidocaine patches. We are obtaining a drug screen today. Patient has been instructed to contact the clinic with any concerns before the next appointment. Dr. Ramos has reviewed this note and agrees with this plan of care. This note was dictated using voice recognition software and make contain errors or omissions. [facility] History Medical History: Reports:: Asthma, Gastroesophageal Reflux Disease(GERD), Hyperlipidemia, Hypertension Denies:: Cancer, Chronic Obstructive Pulmonary Disease (COPD), Coronary Artery Disease, Diabetes Mellitus Type 1, Diabetes Mellitus Type 2, Internal Pacemaker, MRSA, Seizures *Have you ever received a pneumonia vaccine?: No *Have you received a flu vaccine this season?: Yes Other Medical History: Reports: Arthritis, Fibromyalgia, Hypothyroidism, Thyroid Disease, Other. Denies: Blood Transfusion Reaction Laterality Cases: Left: Arthroscopy Knee, Bilateral: Carpal Tunnel Release, Other Other Surgeries: Yes: Appendectomy, Cholecystectomy, , Hysterectomy-Total, Other. No: Pacemaker Amputation: No Fractures: Yes (NASAL) - *Social History Smoking Status: Never smoker Alcohol Intake: never Alcohol Intake Frequency:: holidays/spe
[2021-11-07 15:22] VITALS: BP 143/77; PULSE 119; RESP 20; TEMP 36.6; O2SAT 97; BMI 41.5
== END ==
PROVIDERS: PCP Family Medicine; Visit Provider Student in an Organized Health Care Education/Training Program
DX: M51.16 Intervertebral disc disorders with radiculopathy, lumbar region (principal); M46.1 Sacroiliitis, not elsewhere classified; M79.18 Myalgia, other site; Z79.899 Other long term (current) drug therapy
CPT/HCPCS: 77063; 77067; 80305; 80361; 80365; 99212; G0463; G0480

== ENCOUNTER 2021-11-25 13:09 | Day surgery (SDC) | payer MEDICARE, BC, SELFPAY ==
[2021-11-25 13:30] VITALS: BP 142/84; PULSE 99; RESP 20; TEMP 36.6; O2SAT 98; BMI 39.4
[2021-11-25 13:40] VITALS: BP 146/82; PULSE 99; RESP 18; O2SAT 97
--- NOTE | 2021-11-25 13:53 | P.PCN_ITS ---
- Procedure Date: 11/25/21 Time: 13:53 Anesthesiologist:: Juan R Mack CRNA Complications:: None Pre-procedure Diagnosis:: Bilateral lumbar paraspinous myofascial pain. Post-procedure Diagnosis:: Same Indications for Procedure:: Patient is a very pleasant 61-year-old female that comes our clinic today for bilateral lumbar paraspinous muscle trigger point injections. She rates her low back paraspinous muscle pain 7/10. Procedure Details:: Details of the procedure were explained to the patient. The patient was taken to the procedure room placed in the sitting position. The area of the lumbar spine was cleaned using chlorhexidine as a cleansing solution. 3 markers were placed on the bilateral paraspinous muscles. Using a 25-gauge inch and a half n eedle 3 cc of a solution containing 0.25% Marcaine +1% lidocaine and 40 mg of Depo-Medrol was injected at each marker site. Patient tolerated the procedure without difficulty. There are no complications. Plan and Disposition:: Patient was discharged without incident.
== END 2021-11-25 13:40 | disposition home or self-care (01) ==
LOC: SC.PAINP 13:11
PROVIDERS: PCP Family Medicine; Visit Provider Nurse Anesthetist, Certified Registered
DX: M79.18 Myalgia, other site (principal)
CPT/HCPCS: 20552; J1040

== ENCOUNTER → 2021-12-08 10:46 | Outpatient (POV) | payer MEDICARE, BC, SELFPAY ==
--- NOTE | 2021-12-08 11:04 | EXP.PAIN.SOA ---
[facility] Pain Management SOAP Note Subjective:: Patient is a pleasant 61-year-old female who presents today for follow-up of trigger point injections of bilateral lumbar paraspinous on 11/25/2021. We are currently treating the patient for degenerative disc disease of lumbar spine with lumbar radiculopathy symptoms, sacroiliitis, myofascial pain. Patient states she had significant improvement following these injections. She states about 80% relief and feels like she is still getting help from this injection. Today she rates her pain a 6 out of 10 and states the pain is primarily in her right buttocks and right hip. Patient states she was putting on a shoe about a month ago and felt like she pulled something. Patient has tried [id number]-imfpnod topicals with minimal improvement of her symptoms. She has been also using tiqg-ana-toapola Tylenol with some relief. She is interested in injective therapy if possible for this new pain. Patient is scheduled to leave for vacation next week and be gone about 2 weeks. She is currently managed with tramadol 50 mg twice a day. Patient denies any side effects from this medication. She states this medication is adequately helping her pain. She is requesting a refill at today's visit. Patient is also prescribed gabapentin 600 mg 6 times a day by Melody Hernandez and recently had a 3-day dose of Graham 5 mg by Jaziel Torres. Her Obed is [id number]. Its been reviewed and appropriate. Review of Systems: General: No recent weight changes, no fever, no sleep disturbances Respiratory: No cough, no shortness of air, no recurring pulmonary infections Cardiovascular/peripheral vascular: No chest pain, no palpitations, no edema, no shortness of breath Gastrointestinal: No new onset incontinence, normal bowel movements reported Genitourinary: No new onset incontinence Musculoskeletal: Right buttocks pain, right hip pain Psychiatric: [Normal mood/affect] Neurological: [Denies weakness in extremities], [denies balance issues] Objective:: Physical Exam: General: Alert and oriented x3, no acute distress, pleasant and cooperative Lungs: Respirations even and unlabored, symmetrical chest expansion Eyes: PERRL Musculoskeletal: Flexion and extension of lumbar [spine] somewhat guarded secondary to pain, [antalgic gait noted]. Point tenderness along right piriformis muscle and right greater trochanteric bursa Neurological: Speech clear, no gross sensory deficit Assessment:: Degenerative disc disease of lumbar spine with lumbar radiculopathy symptoms, sacroiliitis, myofascial pain, greater trochanteric bursitis Plan:: Patient is having significant pain along her right buttocks radiating into her right hip. Patient had point tenderness at her right piriformis muscle and right greater trochanteric bursa during today's exam. I have discussed with the patient regarding a trigger point injection along her right piriformis and a right greater trochanteric bursa injection. Risk and benefits of these injections were discussed with the patient. The patient would like to proceed forward with these injections. I will also reorder the patient's tramadol 50 mg twice daily and provide a 1 month supply of this medication. We will schedule the patient for a right piriformis TPI and right greater trochanteric bursa injection. Patient has been instructed to contact the clinic with any concerns before the next appointment. Dr. Ramos has reviewed this note and agrees with this plan of care. This note was dictated using voice recognition software and make contain errors or omissions. [facility] Medical History (Updated 12/07/21 @ 09:30 by MOLLY Lopez) Obesity Social History (Updated 12/07/21 @ 09:31 by MOLLY Lopez) Smoking Status: Never smoker alcohol intake: never substance use type: denies use current occupational status: other Travel in the last 8 weeks: None household members: spouse housing: house current occupat
[2021-12-08 11:17] VITALS: BP 147/84; PULSE 117; RESP 18; TEMP 36.4; O2SAT 97; BMI 43.7
== END | disposition home or self-care (01) ==
PROVIDERS: PCP Family Medicine; Visit Provider Nurse Practitioner Family
DX: M51.16 Intervertebral disc disorders with radiculopathy, lumbar region (principal); M46.1 Sacroiliitis, not elsewhere classified; M79.18 Myalgia, other site; M70.61 Trochanteric bursitis, right hip
CPT/HCPCS: 99212; G0463

== ENCOUNTER 2021-12-30 11:12 | Day surgery (SDC) | payer MEDICARE, BC, SELFPAY ==
[2021-12-30 11:19] VITALS: BP 152/82; PULSE 102; RESP 18; TEMP 36.4; O2SAT 98; BMI 40.8
[2021-12-30 11:44] VITALS: BP 139/83; PULSE 98; RESP 20; O2SAT 96
--- NOTE | 2022-01-06 10:19 | P.PCN_ITS ---
Procedure Date: 12/30/21 Time: 11:40 Anesthesiologist:: Zay Ramos MD Complications:: None Pre-procedure Diagnosis:: Right trochanteric bursitis. Right sided piriformis syndrome/sciatica. Post-procedure Diagnosis:: Same Indications for Procedure:: Patient is a pleasant 61-year-old female who we are treating for right-sided hip pain. She does have right-sided sciatica and piriformis syndrome radiating down her right leg. She also has tenderness over the right trochanteric bursa. We w ill do a right trochanteric bursa injection and a right sciatic nerve block/piriformis muscle injection today. Procedure Details:: Right trochanteric bursa injection under fluoroscopy Informed consent was obtained and the risk and benefits of the procedure was explained to the patient. The patient was taken to the procedure room. The right hip was prepped using ChloraPrep. The skin and subcutaneous tissue were anesthetized using lidocaine. I placed a 22-gauge spinal needle and advanced under fluoroscopic guidance until it contacted the right greater trochanter. Needle placement was confirmed with contrast. After this I injected bupivacaine 0.25%5 mL and Depo-Medrol 40 mg into the right trochanteric bursa. The patient tolerated the procedure well with no complications. Right-sided nerve block/piriformis muscle injection Informed consent was obtained and the risk and benefits of the procedure were explained to the patient the patient was in the procedure room the right buttock was prepped using ChloraPrep. A 25-gauge needle was used in the area of the right piriformis muscle and the sciatic nerve. We injected 10 mL bupivacaine 0.25% and Depo-Medrol 40 mg into this area patient tolerated the procedure well with no complications Plan and Disposition:: We will follow-up with the patient in 2 weeks. We will reevaluate the symptoms at this time
== END 2021-12-30 11:58 | disposition home or self-care (01) ==
LOC: SC.PAINP 11:12
PROVIDERS: PCP Family Medicine; Visit Provider Anesthesiology
DX: M70.61 Trochanteric bursitis, right hip (principal); M54.31 Sciatica, right side
CPT/HCPCS: 20610; 64445; 77002; J1040; Q9966

== ENCOUNTER → 2022-01-19 13:15 | Outpatient (CLI) | payer MEDICARE, BC, SELFPAY ==
--- NOTE | 2022-01-19 13:30 | XR_ITS ---
FINAL REPORT CLINICAL HISTORY: left shoulder pain FINDINGS: LEFT SHOULDER 3 views of the left shoulder were obtained. There are mild hypertrophic changes of the acromioclavicular joint. Visualized joint spaces are normally aligned. Soft tissues are unremarkable. IMPRESSION: Mild hypertrophic changes of the acromioclavicular joint. Reviewed, Interpreted and Dictated by Albin Madrigal MD Transcribed by Ana Maria Tompkins Authenticated and [facility]
--- NOTE | 2022-01-19 13:30 | XR_ITS ---
FINAL REPORT CLINICAL HISTORY: right shoulder pain FINDINGS: RIGHT SHOULDER 3 views of the right shoulder were obtained. There are mild hypertrophic changes of the acromioclavicular joint. Visualized joint spaces are normally aligned. Soft tissues are unremarkable. IMPRESSION: Mild hypertrophic changes of the acromioclavicular joint. Reviewed, Interpreted and Dictated by Albin Madrigal MD Transcribed by Ana Maria Tompkins Authenticated and [facility]
== END ==
PROVIDERS: PCP Family Medicine; Visit Provider Orthopaedic Surgery
DX: M25.512 Pain in left shoulder (principal); M25.511 Pain in right shoulder
CPT/HCPCS: 73030

== ENCOUNTER → 2022-01-31 16:37 | Outpatient (CLI) | payer MEDICARE, BC, SELFPAY ==
--- NOTE | 2022-01-31 16:38 | MR_ITS ---
PROCEDURE INFORMATION: Exam: MR Left Upper Extremity Joint Without Contrast; Shoulder Exam date and time: 01/31/2022 4:54 PM Age: 61 years old Clinical indication: Pain; Shoulder; Left; Additional info: Shoulder pain. PT fell x 1.5 month ago and doesnt know if she landed on it but has limited rom. TECHNIQUE: Imaging protocol: Magnetic resonance imaging of the Left upper extremity without contrast. Exam focused on the shoulder. COMPARISON: CR XR SHOULDER LT MIN 2V 01/19/2022 1:31 PM FINDINGS: Bones and cartilage: Marrow edema/contusion involving the glenoid process inferiorly. Increased concavity of the humeral head posteriorly, consistent with post-traumatic change or Hill-Sachs deformity. Tiny osseous cysts are noted within the humeral head. No dislocation of the shoulder on current images. Acromioclavicular arthropathy is identified, with effacement of the underlying tissue planes. Joint spaces: Small complex glenohumeral joint effusion. Fluid is seen within the subscapularis recess. Glenoid labrum: Blunting of the anterior, posterior, and inferior aspects of the labrum. Heterogeneous signal intensity of the inferior aspect of the labrum, and labral tear cannot be excluded. Bursae: Minimal fluid within the subdeltoid/subacromial bursa. Supraspinatus tendon: Increased PD signal intensity seen at the undersurface of the supraspinatus tendon, with partial undersurface tear. Tendinopathy of the supraspinatus tendon. Infraspinatus tendon: Partial tear of the infraspinatus tendon. Tendinopathy of the infraspinatus tendon. Subscapularis tendon: High-grade partial tear of the subscapularis tendon. Teres minor tendon: No evidence of tear. Tendon of biceps brachii: Significant increased fluid within the bicipital tendon sheath, consistent with tenosynovitis. Glenohumeral ligaments: There is abnormal contour of the axillary recess, although avulsion of the inferior glenohumeral ligament is not definitive. Muscles: No visualized acute abnormality. Soft tissues: Mild soft tissue swelling adjacent to the proximal humerus. IMPRESSION: 1. Marrow edema/contusion involving the glenoid process inferiorly. 2. Increased concavity of the humeral head posteriorly, consistent with post-traumatic change or Hill-Sachs deformity. 3. Tendinopathy and partial tears of the supraspinatus and infraspinatus tendons. 4. High-grade partial tear of the subscapularis tendon. 5. Significant increased fluid within the bicipital tendon sheath, consistent with tenosynovitis. 6. Mild soft tissue swelling adjacent to the proximal humerus. 7. Small complex glenohumeral joint effusion. 8. Acromioclavicular arthropathy is identified, with effacement of the underlying tissue planes. 9. Minimal fluid within the subdeltoid/subacromial bursa. 10. Additional findings described above.
== END ==
PROVIDERS: PCP Family Medicine; Visit Provider Orthopaedic Surgery
DX: M25.512 Pain in left shoulder (principal)
CPT/HCPCS: 73221

== ENCOUNTER → 2022-02-13 09:14 | Outpatient (POV) | payer MEDICARE, BC, SELFPAY ==
[2022-02-13 09:25] VITALS: BP 155/89; PULSE 101; RESP 18; TEMP 36.7; O2SAT 98; BMI 39.4
--- NOTE | 2022-02-13 10:00 | EXP.PAIN.SOA ---
[facility] Pain Management SOAP Note Subjective:: Patient is a pleasant 61-year-old female who presents today for follow-up of right trochanteric bursa injection and right piriformis injection on 12/30/2021. We are currently treating the patient for degenerative disc disease of lumbar spine with lumbar radiculopathy symptoms, sacroiliitis, myofascial pain. Today the patient rates her pain a 4 out of 10. She states the previous injections did provide significant improvement of about 50 to 60% relief lasting for approximately 3 weeks. Patient does state that she is back to her baseline at today's visit. Patient denies any new trauma or injury. Patient denies any change to location or type of pain she experiences. Patient states her pain has been going on for years and progressively worsened over time. Patient also has additional stressors where she is taking care of her mother with dementia. Patient has tried piyw-bnk-ulnkbko topicals with minimal improvement of her symptoms as well as Tylenol. Patient is currently managed with tramadol 50 mg twice a day. Patient denies any side effects from this medication. She states this medication does help take the edge off of her pain symptoms. She is also managed with gabapentin 600 mg 6 times a day from an outside provider. Patient does use heat and ice as needed. She states she gets better relief with a heating pad. She is also prescribed a compounding cream that provides additional improvement. Patient has been seen by physical therapy and Occupational Therapy in the past that has provided some improvement of her symptoms. Patient does continue to do at home exercising and stretching for longer than 6 weeks however she is limited due to her pain symptoms. Patient does see a neurosurgeon, Dr. 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 She states that he did tell her she was not a surgical candidate. Patient states she has been in remission for the last 6 years. Patient did mention today that should her registered phlebotomist part time would like her to decrease taking steroid injections. Patient has had them through multiple providers and is currently seeing Dr. Lee for her left shoulder pain. Her Obed is [id number]. It has been reviewed and appropriate. Review of Systems: General: No recent weight changes, no fever, no sleep disturbances Respiratory: No cough, no shortness of air, no recurring pulmonary infections Cardiovascular/peripheral vascular: No chest pain, no palpitations, no edema, no shortness of breath Gastrointestinal: No new onset incontinence, normal bowel movements reported Genitourinary: No new onset incontinence Musculoskeletal: Low back pain, right hip pain, right buttocks pain, left shoulder pain Psychiatric: [Normal mood/affect] Neurological: [Denies weakness in extremities], [denies balance issues] Objective:: Physical Exam: General: Alert and oriented x3, no acute distress, pleasant and cooperative Lungs: Respirations even and unlabored, symmetrical chest expansion Eyes: PERRL Musculoskeletal: Flexion and extension of lumbar [spine] somewhat guarded secondary to pain, [antalgic gait noted] Neurological: Speech clear, no gross sensory deficit Assessment:: Degenerative disc disease of lumbar spine with lumbar radiculopathy symptoms, sacroiliitis, myofascial pain Plan:: Patient continues to experience significant pain in her low back and hip/buttocks as well as her left shoulder. Patient did have limited range of motion of her lumbar spine during today's visit. Patient has tried and failed oral medications, topicals, heat and ice, injective therapy, physical therapy, occupational therapy, at home stretching and exercise for longer than 6 weeks. Patient has also already saw a neurosurgeon who states she is not a surgical candidate. I have discussed with the patient that she may be a beneficial candidate for a pain pump trial or spinal cord stimulator trial. Risk and bene
== END | disposition home or self-care (01) ==
PROVIDERS: PCP Family Medicine; Visit Provider Nurse Practitioner Family
DX: M51.16 Intervertebral disc disorders with radiculopathy, lumbar region (principal); M46.1 Sacroiliitis, not elsewhere classified; M79.10 Myalgia, unspecified site
CPT/HCPCS: 99212; G0463

== ENCOUNTER 2022-03-29 10:00 | Outpatient (RCR) | payer MEDICARE, BC, SELFPAY ==
--- NOTE | 2022-02-27 10:22 | HMH.OTOPEV ---
OT Inpatient Evaluation Rehab OT Outpatient Eval Start: 02/27/22 10:10 Freq: Status: Active Protocol: Document 02/27/22 10:11 RMARSHALL (Rec: 02/27/22 10:[id number] E-signed By Ritu Mason, OT Outpatient Therapy Subjective History Subjective History Pt is a 61 year old female who reports to therapy for initial evaluation to left shoulder. Pt reports she began having pain at left shoulder in June 2021. She does not recall a specific injury causing her pain to begin. Pt has had two steroid injections and is still experiencing significant pain. Pt did have a MRI completed with the following findingst at left shoulder: 2. Increased concavity of the humeral head posteriorly, consistent with post-traumatic change or Hill-Sachs deformity. 3. Tendinopathy and partial tears of the supraspinatus and infraspinatus tendons. 4. High-grade partial tear of the subscapularis tendon. 5. Significant increased fluid within the bicipital tendon sheath, consistent with tenosynovitis. Pt does demonstrate with a decline at AROM and strength at Left shoulder. Pt will continue to be seen twice a week in order to address left shoulder deficits. Chief Complaint Pain,Stiff,Weakness Symptom Type Ache,Throb,Sharp,Dull,Stabbing Symptoms Relieved By Nothing Symptoms Aggravated By Physical Activity,Lifting Prior Functional Limitations None Current Functional Limitations Reaching,Lifting,Housework, Dressing,Driving,Sleeping, Recreation Activity Symptom Description Constant but Variable Level of pain today (0-10) 3 Pain scale - at its best (0-10) 3 Pain scale - at its worst (0-10) 8 Shoulder/Elbow Eval Shoulder Objective Measurements Shoulder ROM Left Shoulder Abduction Active Range of 115 degrees
--- NOTE | 2022-03-29 10:45 | HMH.RHREAS ---
Rehab Reassessment Rehab OP Re-assessment Start: 03/29/22 10:07 Freq: Status: Active Protocol: Document 03/29/22 10:11 RMARSHALL (Rec: 03/29/22 10:45 RMARSHALL [id number]) E-signed By Ritu Mason OT Rehab Re-assessment Subjective Subjective It has not got any better. Objective Objective Notes Pt continues to be seen twice a week in order to address left shoulder deficits. Each session pt engages in AROM, AAROM, and strengtening exercises. Pt also receives PROM manual stretching to left shoulder in all planes. Modalities are provided in order to decrease pain/ inflammation Assessment Progress Assessment No Progress Assessment Notes At this time, pt reports her pain and motion has become worse since starting therapy. She rates her pain at a 6/10 as of today and it is reaching 10/10 at times. Pt's AROM has decreased since starting therapy. Pt did have an MRI completed to left shoulder and the following are the findings: 2. Increased concavity of the humeral head posteriorly, consistent with post-traumatic change or Hill- Sachs deformity. 3. Tendinopathy and partial tears of the supraspinatus and infraspinatus tendons. 4. High-grade partial tear of the subscapularis tendon. 5. Significant increased fluid within the bicipital tendon sheath, consistent with tenosynovitis. Pt's Current AROM at Left shoulder: Flex: 105 degrees Abd: 95 degrees ER: 65 degrees IR: 40 degrees Patient goals met n/a Goals Not Met S
== END 2022-03-29 10:05 | disposition home or self-care (01) ==
LOC: OT 10:00
PROVIDERS: PCP Family Medicine; Visit Provider Orthopaedic Surgery
DX: M25.512 Pain in left shoulder (principal)
CPT/HCPCS: 97010; 97014; 97110; 97140; 97164; 97166; G0283

== ENCOUNTER → 2022-03-30 10:59 | Outpatient (POV) | payer MEDICARE, BC, SELFPAY ==
[2022-03-30 11:37] VITALS: BP 153/99; PULSE 101; RESP 18; O2SAT 99; BMI 41.1
--- NOTE | 2022-03-30 13:50 | EXP.PAIN.SOA ---
[facility] Pain Management SOAP Note Subjective:: Patient is a pleasant 61 yo female who presents today for follow up. Patient is currently being treated for DDD Lumbar, lumbar radic, sacroiliitis, myofascial pain. We have been managing this patient with injective therapy. She has had multiple rounds of lumbar epidurals or injections, trochanteric bursa injections, piriformis injections. She has gotten significant but temporary relief from these injections. She has tried and failed conservative therapies such as oral meds, PT, and home exercises > 6 weeks. She also takes care of her older mother who has dementia. She has also seen Dr. Hudson who took out a spinal tumor in the past. She still sees him every year. She has been deemed a non-surgical candidate. We have discussed with her that she is a good candidate for intrathecal pain pump therapy. She is interested in this system. Her psych eval has deemed her competent and appropriate to have intrathecal pain pump therapy. She is scheduled for intrathecal pain pump trial on April 14. Obed appropriate. Review of Systems: General: No recent weight changes, no fever, no sleep disturbances Respiratory: No cough, no shortness of air, no recurring pulmonary infections Cardiovascular/peripheral vascular: No chest pain, no palpitations, no edema, no shortness of breath Gastrointestinal: No new onset incontinence, normal bowel movements reported Genitourinary: No new onset incontinence Musculoskeletal: Low back pain Psychiatric: [Normal mood/affect] Neurological: [Denies weakness in extremities], [denies balance issues] Objective:: Physical Exam: General: Alert and oriented x3, no acute distress, pleasant and cooperative Lungs: Respirations even and unlabored, symmetrical chest expansion Eyes: PERRL Musculoskeletal: Flexion and extension of lumbar [spine] somewhat guarded secondary to pain, [antalgic gait noted]; bilateral SI are positive for BRAD, Carl's, [place]'s, [place]'s, compression, and distraction. Neurological: Speech clear, no gross sensory deficit Assessment:: Degenerative disc disease of lumbar spine with lumbar radiculopathy symptoms, sacroiliitis, myofascial pain Plan:: Patient is scheduled for intrathecal pain pump trial on April 14, 2022. I will increase the patient's tramadol to tramadol 50 mg 3 times a day. We will continue Flexeril. She still has a lot of SI pain. Will schedule patient for SI injections after her trial. Patient has been instructed to contact the clinic with any concerns before the next appointment. Dr. Ramos has reviewed this note and agrees with this plan of care. This note was dictated using voice recognition software and make contain errors or omissions. [facility] Disclaimer: The information contained in this section may have been updated after the patient was seen, as this information can be updated by other users. Medical History Obesity Family History Other No significant family history Social History (Reviewed 02/21/22 @ :44 by Austin Lee DO) Smoking Status: Never smoker alcohol intake: never substance use type: denies use current occupational status: disabled Travel in the last 8 weeks: None household members: spouse housing: house current occupational exposures/hazards: No caffeine: Yes
== END ==
PROVIDERS: PCP Family Medicine; Visit Provider Student in an Organized Health Care Education/Training Program
DX: M51.16 Intervertebral disc disorders with radiculopathy, lumbar region (principal); M46.1 Sacroiliitis, not elsewhere classified; M79.10 Myalgia, unspecified site
CPT/HCPCS: 99212; G0463

== ENCOUNTER 2022-04-14 09:43 | Day surgery (SDC) | payer MEDICARE, BC, SELFPAY ==
[2022-04-14 10:00] VITALS: BP 120/68; PULSE 101; RESP 18; TEMP 36.7; O2SAT 100; BMI 41.1
[2022-04-14 11:58] VITALS: BP 150/109; BP 159/100; PULSE 100; PULSE 107; RESP 18; RESP 20; O2SAT 98
[2022-04-14 12:25] VITALS: BP 148/104; PULSE 92; RESP 18; O2SAT 97
--- NOTE | 2022-04-14 12:29 | EXP.PAIN.PRO ---
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 Degenerative disc disease of cervical spine with cervical radiculopathy symptoms Post-procedure Diagnosis:: Same Indications for Procedure:: This patient is a pleasant 61-year-old white female who we are seeing for neck pain and low back pain with lumbar radiculopathy symptoms. 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 She has been doing very well however she continues to have increasing pain in her back and down her legs. She is not able to have injections because of the steroid effect. She has failed all other conservative treatments including injections, oral medications, physical therapy and she is not a candidate for surgery. She presents for intrathecal pump trial today. She does have a successful psychological evaluation. Procedure Details:: Pain pump trial Informed consent was obtained and the risk and benefits of the procedure was explained to the patient. The patient was taken to the procedure room and placed prone on the procedure table. Patient was prepped and draped in sterile fashion. C-arm fluoroscopy was used to view the lumbar spine. The skin and subcutaneous tissues were anesthetized using lidocaine. I placed a 18-gauge spinal needle into the L4-5 interspace and advanced until clear CSF was obtained. After this intrathecal catheter was inserted and advanced very easily to the L1 vertebral body. The needle was withdrawn. We were able to freely withdraw clear CSF through the catheter. We then injected intrathecal fentanyl single shot bolus of 25 mcg followed by saline and followed by the previous CSF that was withdrawn. The needle and catheter were then removed and a Band-Aid was placed. Patient tolerated the procedure well with no complications. We reevaluated the patient after 30 minutes to 1 hour. She was also reassessed by physical therapy. This patient had 90 to 100% relief in her pain symptoms. She is much more functional. She was able to stand longer walk better. This by all indications was a successful intrathecal pump trial. Patient was discharged home neurologically intact with good relief of pain symptoms. Plan and Disposition:: We will follow-up with her in 1 week. Will reevaluate symptoms at that time. This was a successful intrathecal pump trial. We will plan on permanent placement with intrathecal morphine 1 mg/mL to start at 0.1 mg/day. Catheter tip will be at the T8 vertebral body.
[2022-04-14 12:40] VITALS: BP 154/88; PULSE 93; O2SAT 97
[2022-04-14 12:55] VITALS: BP 169/92; PULSE 95; RESP 18; O2SAT 97
[2022-04-14 13:10] VITALS: BP 156/95; PULSE 90; RESP 18; O2SAT 95
== END 2022-04-14 13:10 | disposition home or self-care (01) ==
PROVIDERS: PCP Family Medicine; Visit Provider Anesthesiology
DX: M51.16 Intervertebral disc disorders with radiculopathy, lumbar region (principal); M50.10 Cervical disc disorder with radiculopathy, unspecified cervical region
CPT/HCPCS: 62323; Q9966

== ENCOUNTER 2022-05-19 08:58 | Day surgery (SDC) | payer MEDICARE, BC, SELFPAY ==
[2022-05-16 14:21] VITALS: BMI 43.4
[2022-05-19 09:18] VITALS: BP 171/89; PULSE 125; RESP 18; TEMP 36.1; O2SAT 98
[2022-05-19 09:50] LABS: Basophils # 0.1 K/mm3 (0-0.2); Basophils % 1.5 % (0.1-2.0); Eosinophils # 0.7 K/mm3 (0.0-0.4); Eosinophils % 8.2 % (0.1-12.0); Hematocrit 42.3 % (37.0-47.0); Hemoglobin 13.6 g/dL (12.2-16.2); Lymphocytes # 2.7 K/mm3 (0.7-4.5); Mean Corpuscular Hemoglobin 28.9 pg (27.0-31.2); Mean Corpuscular Volume 90.3 fl (81-99); Mean Platelet Volume 9.4 fl (7.4-10.4); Monocytes # 0.3 K/mm3 (0.1-1.0); Monocytes % 3.9 % (1.7-9.3); Neutrophils # 4.3 K/mm3 (1.8-7.8); Neutrophils % 53.3 % (37.0-80.0); Platelet Count 292 K/mm3 (142-424); Red Blood Count 4.68 M/mm3 (4.20-5.40); White Blood Count 8.1 K/mm3 (4.8-10.8)
--- NOTE | 2022-05-19 09:53 | P.PN_ITS ---
[facility] Disclaimer: The information contained in this section may have been updated after the patient was seen, as this information can be updated by other users. Medical History Obesity Post hysterectomy menopause Surgical History H/O Spinal surgery History of appendectomy History of back surgery History of carpal tunnel surgery History of knee replacement Hx of cholecystectomy Previous section Family History Other Family history of cancer No significant family history Social History Smoking Status: Never smoker alcohol intake: never substance use type: denies use current occupational status: disabled Travel in the last 8 weeks: None household members: spouse housing: house current occupational exposures/hazards: No caffeine: Yes [facility] Anesthesia Checklist Patient Identification Patient Identification: Arm Band and Family Structural Data Admitted From: Home Planned Operative Procedure/s: Pain Pump Placement Consent for Planned Operative Procedure(s) Verified: Yes Verified Documents: Surgical Consent NPO Status Verified Time NPO: 00:00 Additional verifications Patient : No Anesthesia Reactions: No Hx Blood Transfusions: No Blood Transfusion Reaction: No Cephalosporin Allergy: No Previous Colonoscopy: No Airway Assessment C-Spine Mobility Assessed: Yes TMJ Mobility Assessed: Yes Dentition: Good Dentition Neurological Assessment Level of Consciousness: Awake, Alert, Appropriate and Follows Commands Hx Seizures: No Numbness or tingling in extremities: No Anesthesia Plan Anesthesia Risk discussed: Yes ASA Class: II Anesthesia Type: MAC
[2022-05-19 09:57] LABS: Anion Gap 13.2 mEq/L (5-15); Blood Urea Nitrogen 12 mg/dl (7-17); Calcium 9.3 mg/dl (8.4-10.2); Carbon Dioxide 25 mmol/L (22.0-30.0); Chloride 106 mmol/L (98-107); Creatinine Clearance Estimated 43 mL/min (50-200); Estimated Glomerular Filt Rate 46 ml/min (>60); GFR (African American) 55 ML/MIN (>60); Glucose 126 mg/dl (74-100); Potassium 4.2 mmoL/L (3.5-5.1); Sodium 140 mmol/L (136-145)
[2022-05-19 10:07] LABS: Amphetamine/Metha Screen,Urine Negative ng/ml (<1000); Barbiturates Screen,Urine Negative ng/ml (<200); Benzodiazepines Screen,Urine Negative ng/ml (<200); Cannabinoid Screen,Urine Negative ng/ml (<50); Cocaine Screen,Urine Negative ng/ml (<300); Methadone Screen,Urine Negative ng/ml (<300); Opiate Screen,Urine Negative ng/ml (<300); Phencyclidine Screen,Urine Negative ng/ml (<25)
[2022-05-19 11:20] VITALS: BP 149/86; PULSE 112; RESP 18; TEMP 36.3; O2SAT 97
[2022-05-19 11:30] VITALS: BP 144/87; PULSE 106; RESP 16; O2SAT 98
[2022-05-19 11:40] VITALS: BP 154/97; PULSE 109; RESP 16; O2SAT 97
[2022-05-19 11:50] VITALS: BP 148/75; PULSE 103; RESP 16; TEMP 36.6; O2SAT 97
--- NOTE | 2022-05-19 13:49 | P.OP_ITS ---
Date of procedure: 05/19/22 Pre-op Diagnosis:: Degenerative disease of lumbar spine with lumbar radiculopathy symptoms. Degenerative disease of the cervical spine with cervical radiculopathy symptoms. History of spinal cord tumor. Post-op Diagnosis:: Same Procedure performed:: For replacement intrathecal pain pump, catheter with tunneling and pain pump reservoir Surgeon:: Zay Ramos MD INFORMATION ASSURANCE ENGINEER:: Mateo Barroso Anesthesia: MAC Estimated blood loss (mL): 5 Clinical Note:: The patient is a pleasant 61-year-old white female who we are treating for neck pain low back pain with lumbar radiculopathy symptoms. She is under surveillance status post a resection of previous spinal cord tumor several years ago. She has been doing well however she continues to have increasing pain in her back and down her legs. She is not able to have injections because of the steroid effect. She has failed all other conservative treatments including injections, oral medications, physical therapy and she is not a candidate for any further surgery. She has had a successful intrathecal pump trial. She is also got a successful psychological evaluation. She presents for permanent placement of her intrathecal pain pump today. Operative findings:: None Operative note:: Informed consent was obtained and the risk and benefits of the procedure were explained to the patient. The patient was taken the operating room placed prone on the procedure table. The patient was prepped and draped in sterile fashion. C-arm fluoroscopy was used to view the right flank. An incision was made b etween the 12th rib and the iliac crest. A pocket was created for the pump. Ray-Shabana's were placed in the pocket for hemostasis. C-arm fluoroscopy was then used to view the lumbar spine. The skin and subcutaneous tissues adjacent to the L4-5 and L5-S1 interspace were Using lidocaine. An incision was made. We dissected down to the lumbar paraspinous fascia. A 17-gauge spinal needle was inserted and advanced into the L5-S1 interspace until clear CSF was obtained. After this intrathecal catheter was inserted and advanced very easily to the T8 vertebral body. Catheter placement was posterior based on lateral view. The stylette of the catheter and the needle withdrawn. The catheter was secured to the fascia with an anchoring vice and 2-0 Prolene. I feel the pump was 20 mils of intrathecal morphine 1 mg per ml. I tunneled catheter from the back to the pump pocket and attached catheter to the pump. The Ray-Shabana's were removed from the pocket. We were able to freely withdraw clear fluid from the sideport again. Both incisions were irrigated with antibiotic solution. Both incisions were then closed with 2-0 Vicryl followed by 4-0 nylon and benton. A wound VAC was placed over both incisions. The patient was placed in an abdominal binder and taken recovery in stable condition. Pump was interrogated and started 0.1 mg/day of intrathecal morphine. Patient was discharged home neurologically intact with good relief of pain symptoms. Plan and disposition: We will follow-up with this patient in 1 week for wound check and reprogramming if needed. We will follow-up in 2 to 3 weeks for suture and staple. If patient has any problems or questions they are to call us back in the pain clinic. Condition: stable Disposition: PACU Complications:: None
== END 2022-05-19 12:00 | disposition home or self-care (01) ==
PROVIDERS: PCP Family Medicine; Visit Provider Anesthesiology
DX: M51.16 Intervertebral disc disorders with radiculopathy, lumbar region; M50.10 Cervical disc disorder with radiculopathy, unspecified cervical region; Z79.899 Other long term (current) drug therapy
CPT/HCPCS: 62350; 62362; 80048; 80305; 85025; 96374; C1755; C1772; J3370

== ENCOUNTER → 2022-05-26 11:40 | Outpatient (POV) | payer MEDICARE, BC, SELFPAY ==
--- NOTE | 2022-05-26 12:51 | EXP.PAIN.PRO ---
Procedure Date: 05/26/22 Time: 12:00 Anesthesiologist:: Juan R Mack CRNA Complications:: None Pre-procedure Diagnosis:: Degenerative disc disease lumbar spine multilevels. Lumbar radiculopathy Post-procedure Diagnosis:: Same. Indications for Procedure:: This patient is a very pleasant 62-year-old female that comes our clinic today for intrathecal pain pump interrogation and increase. Patient is 7 days postop intrathecal pain pump placement. Overall, patient states she is doing much better. However, she is continuing to have some lumbar back pain right greater than left. She denies radicular symptoms. Patient is requesting an increase today. Were currently managing her with morphine sulfate 1 mg/mL 0.1 mg/day. We will increase her by 10% today. Her incisions are clean and dry. Og and/or sutures are intact. No sign of infection. Procedure Details:: Details of the procedure explained to the patient. The patient taken to procedure room placed in the sitting position. The pump was interrogated and increased by 10%. Her new rate will be 0.11 mg/day. Her medication is morphine sulfate. Plan and Disposition:: Patient will return in 2 weeks for staple/suture removal.
[2022-05-26 12:54] VITALS: BP 150/83; PULSE 107; RESP 18; O2SAT 98; BMI 43.2
== END | disposition home or self-care (01) ==
PROVIDERS: PCP Family Medicine; Visit Provider Nurse Anesthetist, Certified Registered
DX: Z45.1 Encounter for adjustment and management of infusion pump (principal); M51.16 Intervertebral disc disorders with radiculopathy, lumbar region
CPT/HCPCS: 62368; 99213; G0463

== ENCOUNTER → 2022-06-12 14:48 | Outpatient (POV) | payer MEDICARE, BC, SELFPAY ==
--- NOTE | 2022-06-12 15:34 | EXP.PAIN.PRO ---
Procedure Date: 06/12/22 Time: 15:34 Anesthesiologist:: Cheyanne Lee APRN Complications:: None Pre-procedure Diagnosis:: Degenerative disc disease of cervical and lumbar spine with cervical and lumbar radiculopathy symptoms Post-procedure Diagnosis:: Same Indications for Procedure:: Patient is a pleasant 62-year-old female who presents today for follow-up of intrathecal patient is a pleasant replacement on 05/19/2022 and intrathecal adjustment and reprogram. The patient is being treated for degenerative disc disease of cervical and lumbar spine with cervical and lumbar radiculopathy symptoms. Patient is currently being managed with morphine 1 mg/mL with a daily dose of 0.1098 mg/day. Patient denies any side effects from this medication. Patient rates pain a 7 out of 10. Patient denies any new trauma or injury following this procedure. Patient does have incisional pain. She is also managed with compounding cream and gabapentin 600 mg 6 times a day from an outside provider. Patient denies any side effects from this medication drug screen is appropriate. [facility] [id number] has been reviewed and is appropriate. Physical exam General: Alert and oriented x3, no acute distress, pleasant and cooperative Lungs: Respirations even and unlabored, symmetrical chest expansion Eyes: PERRL Musculoskeletal: Flexion and extension of lumbar [spine] somewhat guarded secondary to pain, [antalgic gait noted] Neurological: Speech clear, no gross sensory deficit Skin: Incision sites clean, dry, well approximated with minimal erythema with benton and suture intact Procedure Details:: Informed consent was obtained and the risk and benefits of the procedure were explained to the patient. Patient was taken to the procedure room where noninvasive monitoring was placed including noninvasive blood pressure cuff and pulse oximeter. Patient's pump was interrogated and was reprogrammed to morphine 0.1 to 07 mg/day. The patient tolerated the procedure well with no complications. Plan and Disposition:: Patient's incision site was clean, dry, well approximated with minimal erythema noted. Patient's sutures were removed and every other staple during today's visit. I have counseled the patient to continue her postop restrictions of minimal bending, lifting, twisting no submerging in water and to continue to wear her abdominal binder for the full 6 weeks. Patient will return to clinic in 1 week for reevaluation of symptoms and removal of remaining benton if indicated. Patient has been instructed to contact the clinic with any concerns before the next appointment. Dr. Ramos has reviewed this note and agrees with this plan of care. This note was dictated using voice recognition software and make contain errors or omissions. -- It Is medically necessary for this patient to continue to have their intrathecal pump refilled at regular intervals. This patient had an intrathecal pain pump implanted after meeting criteria of chronic intractable pain for greater than 3 months and failing conservative treatments. Patient has committed and been compliant to the treatment plan and all planned follow up care. Since implantation of the intrathecal pain pump, the patient has had decreased pain and been more functional. Oral medications have been reduced including intake of oral opioids. Patient continues to do well with intrathecal therapy with decrease in pain symptoms and increase in functional status. Stopping intrathecal medications can lead to life threatening withdrawal, seizures, cardiac arrest, severe pain, and possible . Pumps that are not refilled at regular intervals can be damages and cause and need for replacement. We continually titrate dose and concentration to optimize pain relief and function. We are limited in concentration for certain drugs to safely deliver medications through the pump and stay within the recommendations from the [employer]ensus [employer] [place]
[2022-06-12 15:50] VITALS: BP 156/87; PULSE 104; RESP 18; O2SAT 97; BMI 40.3
== END | disposition home or self-care (01) ==
PROVIDERS: PCP Family Medicine; Visit Provider Nurse Practitioner Family
DX: Z45.1 Encounter for adjustment and management of infusion pump (principal); M51.16 Intervertebral disc disorders with radiculopathy, lumbar region; M50.10 Cervical disc disorder with radiculopathy, unspecified cervical region
CPT/HCPCS: 62368; 99213; G0463

== ENCOUNTER → 2022-06-19 15:13 | Outpatient (POV) | payer MEDICARE, BC, SELFPAY ==
--- NOTE | 2022-06-19 15:48 | EXP.PAIN.PRO ---
Procedure Date: 06/19/22 Time: 15:49 Anesthesiologist:: Cheyanne Lee APRN Complications:: None Pre-procedure Diagnosis:: Degenerative disc disease of lumbar spine with lumbar radiculopathy symptoms, degenerative disc disease of cervical spine with cervical radiculopathy Post-procedure Diagnosis:: Same Indications for Procedure:: Patient is a pleasant 62-year-old female who presents today for intrathecal pain pump reprogramming. The patient is being treated for degenerative disc disease of cervical and lumbar spine with cervical and lumbar radiculopathy symptoms. Patient is currently being managed with morphine 1 mg/mL with a daily dose of 0.1207 mg/day. Patient denies any side effects from this medication. Patient did have her intrathecal pain pump replaced on 05/19/2022. Patient denies any problems following this procedure. Patient has continued to wear her abdominal binder and back brace. She states that her back brace does seem to help improve her pain symptoms while she is walking. Patient does state that she continues to have significant pain when she is standing. Patient rates pain a 8 out of 10. She is currently managed with gabapentin 600 mg 6 times a day from an outside provider. Patient denies any side effects from this medication. Drug screen is appropriate. [facility] [phone] has been reviewed and is appropriate. Physical exam General: Alert and oriented x3, no acute distress, pleasant and cooperative Lungs: Respirations even and unlabored, symmetrical chest expansion Eyes: PERRL Musculoskeletal: Flexion and extension of lumbar [spine] somewhat guarded secondary to pain, [antalgic gait noted] Neurological: Speech clear, no gross sensory deficit Skin: Incision sites clean, dry, well approximated with ebnton intact and moderate edema to the right upper incision Procedure Details:: Informed consent was obtained and the risk and benefits of the procedure were explained to the patient. Patient was taken to the procedure room where noninvasive monitoring was placed including noninvasive blood pressure cuff and pulse oximeter. Patient's pump was interrogated and was reprogrammed to morphine 0.1328 mg/day. The patient tolerated the procedure well with no complications. Plan and Disposition:: Patient was given a 10% increase at today's visit for her increased pain symptoms. Patient's incision sites were clean, dry, and well approximated. Patient's midline incision did have the benton removed and Steri-Strips applied however her right lumbar incision does have moderate edema noted and does seem to be more related to the abdominal binder rubbing against the benton. I have discussed with the patient that she may benefit from covering this incision site when she is using her binder or in times that she may be riding in a car that may cause more irritation. At this time we will leave her benton in place. I have counseled her to continue her postop restrictions of minimal bending, lifting and twisting no submerging into water and to continue to wear her abdominal binder. Patient will return to clinic in 1 week for reevaluation of symptoms, stable removal if indicated and plan of care. Patient has been instructed to contact the clinic with any concerns before the next appointment. Dr. Ramos has reviewed this note and agrees with this plan of care. This note was dictated using voice recognition software and make contain errors or omissions. -- It Is medically necessary for this patient to continue to have their intrathecal pump refilled at regular intervals. This patient had an intrathecal pain pump implanted after meeting criteria of chronic intractable pain for greater than 3 months and failing conservative treatments. Patient has committed and been compliant to the treatment plan and all planned follow up care. Since implantation of the intrathecal pain pump, the patient has had decreased pain and been more functional. Oral medic
[2022-06-19 15:57] VITALS: BP 118/82; PULSE 92; RESP 18; O2SAT 97; BMI 43.9
== END | disposition home or self-care (01) ==
PROVIDERS: PCP Family Medicine; Visit Provider Nurse Practitioner Family
DX: Z45.1 Encounter for adjustment and management of infusion pump (principal); M51.16 Intervertebral disc disorders with radiculopathy, lumbar region; M50.10 Cervical disc disorder with radiculopathy, unspecified cervical region
CPT/HCPCS: 62368

== ENCOUNTER → 2022-06-26 10:05 | Outpatient (POV) | payer MEDICARE, BC, SELFPAY ==
[2022-06-26 10:39] VITALS: BP 139/96; PULSE 108; RESP 18; O2SAT 97; BMI 41.8
--- NOTE | 2022-06-26 10:50 | EXP.PAIN.PRO ---
Procedure Date: 06/26/22 Time: 10:51 Anesthesiologist:: Cheyanne Lee APRN Complications:: None Pre-procedure Diagnosis:: Degenerative disc disease of cervical and lumbar spine with cervical and lumbar radiculopathy symptoms Post-procedure Diagnosis:: Same Indications for Procedure:: Patient is a pleasant 62-year-old female who presents today for intrathecal pain pump reprogramming adjustment. The patient is being treated for degenerative disc disease of cervical and lumbar spine with cervical and lumbar radiculopathy symptoms. Patient is currently being managed with morphine 1 mg/mL with a daily dose of 0.1328 mg/day. Patient denies any side effects from this medication. Patient rates pain a 8 out of 10. Patient denies any new trauma or injury. Patient denies any change location or type of pain she experiences. Patient states that with her mother recently passing away she has been more active and does seem to have additional pain that is worse with standing. Patient states she also notices she gets short of breath with increased activity. She is prescribed gabapentin 600 mg 6 times a day from an outside provider. Patient denies any side effects from this medication. She also uses compounding cream as needed. Drug screen is appropriate. [facility] [id number] has been reviewed and is appropriate. Physical exam General: Alert and oriented x3, no acute distress, pleasant and cooperative Lungs: Respirations even and unlabored, symmetrical chest expansion Eyes: PERRL Musculoskeletal: Flexion and extension of lumbar [spine] somewhat guarded secondary to pain, [antalgic gait noted] Neurological: Speech clear, no gross sensory deficit Procedure Details:: Informed consent was obtained and the risk and benefits of the procedure were explained to the patient. Patient was taken to the procedure room where noninvasive monitoring was placed including noninvasive blood pressure cuff and pulse oximeter. Patient's pump was interrogated and was reprogrammed to morphine 0.1462 mg/day. The patient tolerated the procedure well with no complications. Plan and Disposition:: Patient was given a 10% increase during today's visit. I have counseled the patient to continue her postoperative restrictions for the full 6 weeks with minimal bending, lifting, twisting and no submerging in water until the incision is fully healed. I have counseled the patient to continue to monitor her shortness of breath and to let us know if this continues to be an issue or it increases unrelated to increased activity. Patients incision sites were clean, dry, well approximated with minimal erythema. The remainder of her benton were removed and Steri-Strips applied. Patient tolerated this well with no complications. Patient will return to clinic for reevaluation of symptoms and follow-up in 1 month. Patient has been instructed to contact the clinic with any concerns before the next appointment. Dr. Ramos has reviewed this note and agrees with this plan of care. This note was dictated using voice recognition software and make contain errors or omissions. -- It Is medically necessary for this patient to continue to have their intrathecal pump refilled at regular intervals. This patient had an intrathecal pain pump implanted after meeting criteria of chronic intractable pain for greater than 3 months and failing conservative treatments. Patient has committed and been compliant to the treatment plan and all planned follow up care. Since implantation of the intrathecal pain pump, the patient has had decreased pain and been more functional. Oral medications have been reduced including intake of oral opioids. Patient continues to do well with intrathecal therapy with decrease in pain symptoms and increase in functional status. Stopping intrathecal medications can lead to life threatening withdrawal, seizures, cardiac arrest, severe pain, and possible . Pumps that are not refilled at reg
== END | disposition home or self-care (01) ==
PROVIDERS: PCP Family Medicine; Visit Provider Nurse Practitioner Family
DX: Z45.1 Encounter for adjustment and management of infusion pump (principal); M50.10 Cervical disc disorder with radiculopathy, unspecified cervical region
CPT/HCPCS: 62368; 99213; G0463

== ENCOUNTER → 2022-07-27 09:57 | Outpatient (POV) | payer MEDICARE, BC, SELFPAY ==
--- NOTE | 2022-07-27 10:57 | EXP.PAIN.PRO ---
Procedure Date: 07/27/22 Time: 10:57 Anesthesiologist:: Cheyanne Lee APRN Complications:: None Pre-procedure Diagnosis:: Degenerative disc disease of cervical and lumbar spine with cervical and lumbar radiculopathy symptoms Post-procedure Diagnosis:: Same Indications for Procedure:: Patient is a pleasant 62-year-old female who presents today for intrathecal pain pump reprogramming adjustment. The patient is being treated for degenerative disc disease of cervical and lumbar spine with cervical and lumbar radiculopathy symptoms. Patient is currently being managed with gabapentin 600 mg 6 times a day from an outside provider and intrathecal morphine 1 mg/mL with a daily dose of 0.1462 mg/day. Patient denies any side effects from this medication. Patient rates pain a 5 out of 10. Drug screen is appropriate. [facility] [id number] has been reviewed and is appropriate. Physical exam General: Alert and oriented x3, no acute distress, pleasant and cooperative Lungs: Respirations even and unlabored, symmetrical chest expansion Eyes: PERRL Musculoskeletal: Flexion and extension of lumbar [spine] somewhat guarded secondary to pain, [antalgic gait noted] Neurological: Speech clear, no gross sensory deficit Skin: Incision sites are fully healed with no erythema noted Procedure Details:: Informed consent was obtained and the risk and benefits of the procedure were explained to the patient. Patient was taken to the procedure room where noninvasive monitoring was placed including noninvasive blood pressure cuff and pulse oximeter. Patient's pump was interrogated and was reprogrammed to morphine 0.161 mg/day. The patient tolerated the procedure well with no complications. Plan and Disposition:: Patient tolerated her intrathecal increase with no complications and was discharged neurologically intact. Patient did have her PTM device set up during today's visit. Patient will return to clinic in 1 month for reevaluation of symptoms, possible intrathecal reprogram and adjustment and follow-up. Patient has been instructed to contact the clinic with any concerns before the next appointment. Dr. Ramos has reviewed this note and agrees with this plan of care. This note was dictated using voice recognition software and make contain errors or omissions. -- It Is medically necessary for this patient to continue to have their intrathecal pump refilled at regular intervals. This patient had an intrathecal pain pump implanted after meeting criteria of chronic intractable pain for greater than 3 months and failing conservative treatments. Patient has committed and been compliant to the treatment plan and all planned follow up care. Since implantation of the intrathecal pain pump, the patient has had decreased pain and been more functional. Oral medications have been reduced including intake of oral opioids. Patient continues to do well with intrathecal therapy with decrease in pain symptoms and increase in functional status. Stopping intrathecal medications can lead to life threatening withdrawal, seizures, cardiac arrest, severe pain, and possible . Pumps that are not refilled at regular intervals can be damages and cause and need for replacement. We continually titrate dose and concentration to optimize pain relief and function. We are limited in concentration for certain drugs to safely deliver medications through the pump and stay within the recommendations from the Polyanalgesic Consensus Committee Guidelines. Depending on dose and concentration these pumps may need to be refilled sooner than 3 months as we titrate.
[2022-07-27 12:22] VITALS: BP 130/87; PULSE 107; RESP 20; O2SAT 98; BMI 41.5
== END | disposition home or self-care (01) ==
PROVIDERS: PCP Family Medicine; Visit Provider Nurse Practitioner Family
DX: Z45.1 Encounter for adjustment and management of infusion pump (principal); M51.16 Intervertebral disc disorders with radiculopathy, lumbar region; M50.10 Cervical disc disorder with radiculopathy, unspecified cervical region
CPT/HCPCS: 62368; 99213; G0463

== ENCOUNTER 2022-08-29 10:56 | Day surgery (SDC) | payer MEDICARE, BC, SELFPAY ==
[2022-08-29 11:15] VITALS: BP 154/77; PULSE 106; RESP 18; TEMP 36.6; O2SAT 97; BMI 41.1
[2022-08-29 11:45] VITALS: BP 130/70; PULSE 99; RESP 18; O2SAT 97
--- NOTE | 2022-08-29 11:51 | EXP.PAIN.PRO ---
Procedure Date: 08/29/22 Anesthesiologist:: Juan R Mack CRNA Complications:: None
--- NOTE | 2022-08-29 12:06 | EXP.PAIN.PRO ---
Procedure Date: 08/29/22 Time: 11:30 Anesthesiologist:: Juan R Mack CRNA Complications:: None Pre-procedure Diagnosis:: Degenerative disc cervical spine multilevels. Cervical radiculopathy. Degenerative disc lumbar spine multilevels. Lumbar radiculopathy Post-procedure Diagnosis:: Same. Indications for Procedure:: Patient is a pleasant 62-year-old female comes our clinic today for intrathecal pain pump interrogation and refill. Patient is currently being managed with morphine sulfate 1 mg/mL at a rate of 0.1610 milligrams per day. Patient doing very well with her current settings. She is not requesting any changes today. She does not complain of any side effects or complications regarding the intrathecal pain pump management. Procedure Details:: Details of the procedure explained to the patient. Patient taken the procedure room placed in the sitting position. The area over the pump was cleansed using chlorhexidine as a cleansing solution. The pump was interrogated. The pump was accessed with ease using a 22-gauge inch and half needle. 5 mL of solution was withdrawn and discarded appropriately. The pump was then filled incrementally with 20 cc of morphine sulfate 1 mg/mL. Patient tolerated procedure without difficulty. There are no complications. Plan and Disposition:: Patient was discharged without incident.
== END 2022-08-29 11:45 | disposition home or self-care (01) ==
PROVIDERS: PCP Family Medicine; Visit Provider Nurse Anesthetist, Certified Registered
DX: Z45.1 Encounter for adjustment and management of infusion pump (principal); M51.16 Intervertebral disc disorders with radiculopathy, lumbar region; M50.10 Cervical disc disorder with radiculopathy, unspecified cervical region
CPT/HCPCS: 95991

== ENCOUNTER 2022-11-17 10:16 | Day surgery (SDC) | payer MEDICARE, BC, SELFPAY ==
[2022-11-17 10:27] VITALS: BP 138/80; PULSE 111; RESP 18; TEMP 36.4; O2SAT 97; BMI 43.2
[2022-11-17 10:33] VITALS: BP 128/74; PULSE 101; RESP 18; O2SAT 95
[2022-11-17 10:34] VITALS: BP 128/74; PULSE 103; RESP 18; O2SAT 95
--- NOTE | 2022-11-17 10:46 | EXP.PAIN.PRO ---
Procedure Date: 11/17/22 Time: 10:35 Anesthesiologist:: Juan R Mack CRNA Complications:: None Pre-procedure Diagnosis:: Degenerative disc disease lumbar spine. Lumbar radiculopathy. Degenerative disc cervical spine. Cervical radiculopathy. Post-procedure Diagnosis:: Same. Indications for Procedure:: Patient is a very pleasant 62-year-old female comes our clinic today for an intrathecal pain pump interrogation refill. Patient currently being managed with morphine sulfate 1 mg/mL at 0.1610 mg/day. Patient reported some increased pain in the lumbar spine when standing for any length of time. Pain increases with activity such as sweeping, mopping. She is requesting increase in the rate today. She rates her pain 7/10. Procedure Details:: Details of the procedure explained to the patient. The patient taken the procedure room placed in the sitting position. The area over the pump was cleansed using chlorhexidine as a cleansing solution. The pump was interrogated. The pump was accessed with ease using a 22-gauge inch and half needle. 6.7 mL of solution was withdrawn and discarded appropriately. The pump was then filled incrementally with 20 cc of morphine sulfate 1 mg/mL. The pump will be increased by 10%. Her new rate will be 0.1772 mg/day. Patient tolerated procedure without difficulty. There are no complications. Plan and Disposition:: Patient was discharged without incident.
[2022-11-17 11:23] LABS: Amphetamine/Metha Screen,Urine Negative ng/ml (<1000); Barbiturates Screen,Urine Negative ng/ml (<200)
[2022-11-17 11:24] LABS: Benzodiazepines Screen,Urine Negative ng/ml (<200)
[2022-11-17 11:25] LABS: Cannabinoid Screen,Urine Negative ng/ml (<50); Cocaine Screen,Urine Negative ng/ml (<300)
[2022-11-17 11:26] LABS: Methadone Screen,Urine Negative ng/ml (<300); Phencyclidine Screen,Urine Negative ng/ml (<25)
[2022-11-17 11:27] LABS: Opiate Screen,Urine Negative ng/ml (<300)
[2022-11-17 11:30] VITALS: BP 108/65; PULSE 106; RESP 18; O2SAT 94
[2022-11-22 22:08] LABS: Codeine Negative (Cutoff=100); Hydrocodone Negative (Cutoff=100); Hydromorphone Negative (Cutoff=100); Morphine Positive (.); Opiates Positive (.)
== END 2022-11-17 11:30 | disposition home or self-care (01) ==
PROVIDERS: Nurse Practitioner Family; PCP Family Medicine; Visit Provider Nurse Anesthetist, Certified Registered
DX: M51.16 Intervertebral disc disorders with radiculopathy, lumbar region (principal); M50.10 Cervical disc disorder with radiculopathy, unspecified cervical region
CPT/HCPCS: 80305; 80361; 80365; 95991; G0480

== ENCOUNTER → 2022-12-05 17:02 | Outpatient (CLI) | payer MEDICARE, BC, SELFPAY ==
--- NOTE | 2022-12-05 17:47 | XR_ITS ---
FINAL REPORT CLINICAL HISTORY: left shoulder pain FINDINGS: LEFT SHOULDER 3 views of the left shoulder were obtained. There is no acute fracture or dislocation. There are mild hypertrophic changes at the acromioclavicular joint. Soft tissues are unremarkable. IMPRESSION: Mild degenerative changes with no acute bony abnormality. Reviewed, Interpreted and Dictated by Albin Madrigal MD Transcribed by Jillian Gibbons Authenticated and [facility]
== END ==
PROVIDERS: PCP Family Medicine; Visit Provider Orthopaedic Surgery
DX: M25.512 Pain in left shoulder (principal)
CPT/HCPCS: 73030

== ENCOUNTER → 2022-12-07 13:55 | Outpatient (POV) | payer MEDICARE, BC, SELFPAY ==
--- NOTE | 2022-12-07 14:35 | P.PCN_ITS ---
Procedure Date: 12/07/22 Time: 14:14 Anesthesiologist:: Cheyanne Lee APRN Complications:: None Pre-procedure Diagnosis:: Degenerative disc disease of cervical and lumbar spine with cervical and lumbar radiculopathy symptoms Post-procedure Diagnosis:: Same Indications for Procedure:: patient is a pleasant 62-year-old female who presents today for intrathecal reprogramming adjustment. We are currently treating the patient for degenerative disc disease of cervical and lumbar spine with cervical and lumbar radiculopathy symptoms. Today she rates her pain a 4 out of 10. Patient denies any side effects Or new injury or trauma. She is currently managed with morphine 1 mg/mL with a daily dose of 0.1772 mg/day. Patient denies any side effects from this medication. She states this does well if she is just resting however as she has been doing more activities such as sweeping or cleaning or gardening she has had increased pain and is requesting a increase.her Obed has been reviewed and is appropriate. Physical Exam: General: Alert and oriented x3, no acute distress, pleasant and cooperative Lungs: Respirations even and unlabored, symmetrical chest expansion Eyes: PERRL Musculoskeletal: Flexion and extension of lumbar [spine] somewhat guarded secondary to pain, [antalgic gait noted] Neurological: Speech clear, no gross sensory deficit Procedure Details:: Informed consent was obtained and the risk and benefits of the procedure were explained to the patient. Patient was taken to the procedure room where noninvasive monitoring was placed including noninvasive blood pressure cuff and pulse oximeter. Patient's pump was interrogated and was reprogrammed to morphine 0.195 mg/day. The patient tolerated the procedure well with no complications. Plan and Disposition:: Patient tolerated her intrathecal increase with no complications and was discharged neurologically intact. Patient will return to clinic in 1 month for reevaluation of symptoms and possible intrathecal adjustment. Patient has been instructed to contact the clinic with any concerns before the next appointment. Dr. Ramos has reviewed this note and agrees with this plan of care. This note was dictated using voice recognition software and make contain errors or omissions. -- It Is medically necessary for this patient to continue to have their intrathecal pump refilled at regular intervals. This patient had an intrathecal pain pump implanted after meeting criteria of chronic intractable pain for greater than 3 months and failing conservative treatments. Patient has committed and been compliant to the treatment plan and all planned follow up care. Since implantation of the intrathecal pain pump, the patient has had decreased pain and been more functional. Oral medications have been reduced including intake of oral opioids. Patient continues to do well with intrathecal therapy with decrease in pain symptoms and increase in functional status. Stopping intrathecal medications can lead to life threatening withdrawal, seizures, cardiac arrest, severe pain, and possible . Pumps that are not refilled at regular intervals can be damages and cause and need for replacement. We continu ally titrate dose and concentration to optimize pain relief and function. We are limited in concentration for certain drugs to safely deliver medications through the pump and stay within the recommendations from the Polyanalgesic Consensus Committee Guidelines. Depending on dose and concentration these pumps may need to be refilled sooner than 3 months as we titrate.
[2022-12-08 08:06] VITALS: BP 129/80; PULSE 110; RESP 20; O2SAT 97; BMI 40.6
== END | disposition home or self-care (01) ==
PROVIDERS: PCP Family Medicine; Visit Provider Nurse Practitioner Family
DX: M50.10 Cervical disc disorder with radiculopathy, unspecified cervical region (principal); M51.16 Intervertebral disc disorders with radiculopathy, lumbar region; Z97.8 Presence of other specified devices
CPT/HCPCS: 62368

== ENCOUNTER → 2023-01-22 14:13 | Outpatient (POV) | payer MEDICARE, BC, SELFPAY ==
--- NOTE | 2023-01-22 14:47 | EXP.PAIN.PRO ---
Procedure Date: 01/22/23 Time: 14:47 Anesthesiologist:: Cheyanne Lee APRN Complications:: None Pre-procedure Diagnosis:: Degenerative disc disease of cervical and lumbar spine with cervical and lumbar radiculopathy symptoms Post-procedure Diagnosis:: Same Indications for Procedure:: Patient is a pleasant 62-year-old female who presents today for intrathecal adjustment and reprogram. We are currently treating the patient for degenerative disc disease of cervical and lumbar spine with cervical and lumbar radiculopathy symptoms. Today she rates her pain a 6 out of 10. Patient denies any new trauma or injury. She does state that she has been moving [place] and has had a little bit more pain along her right thigh. Patient is currently managed with morphine 1 mg/mL with a daily dose of 0.1950 mg/day. Patient denies any side effects from this medication. She does state that she is scheduled for upcoming shoulder surgery on 07 February and had questions regarding her pump medication and possible postop medication prescribed. Patient is also managed with gabapentin 600 mg 6 times a day from an outside provider. Patient denies any side effects from this medication. Her Obed is [id number]. Its been reviewed and appropriate. Physical Exam: General: Alert and oriented x3, no acute distress, pleasant and cooperative Lungs: Respirations even and unlabored, symmetrical chest expansion Eyes: PERRL Musculoskeletal: Flexion and extension of lumbar [spine] somewhat guarded secondary to pain, [antalgic gait noted] Neurological: Speech clear, no gross sensory deficit Procedure Details:: Informed consent was obtained and the risk and benefits of the procedure were explained to the patient. Patient was taken to the procedure room where noninvasive monitoring was placed including noninvasive blood pressure cuff and pulse oximeter. Patient's pump was interrogated and was reprogrammed to morphine 0.2142 mg/day. The patient tolerated the procedure well with no complications. Plan and Disposition:: I have counseled the patient that to keep us posted as far as her upcoming surgery and that if her physician does prescribe postop pain medications that we will monitor this in combination with her intrathecal pump medication. Patient tolerated her intrathecal increase with no complications and was discharged neurologically intact we will see the patient back in the clinic at the next intrathecal refill. Patient has been instructed to contact the clinic with any concerns before the next appointment. Dr. Ramos has reviewed this note and agrees with this plan of care. This note was dictated using voice recognition software and make contain errors or omissions. -- It Is medically necessary for this patient to continue to have their intrathecal pump refilled at regular intervals. This patient had an intrathecal pain pump implanted after meeting criteria of chronic intractable pain for greater than 3 months and failing conservative treatments. Patient has committed and been compliant to the treatment plan and all planned follow up care. Since implantation of the intrathecal pain pump, the patient has had decreased pain and been more functional. Oral medications have been reduced including intake of oral opioids. Patient continues to do well with intrathecal therapy with decrease in pain symptoms and increase in functional status. Stopping intrathecal medications can lead to life threatening withdrawal, seizures, cardiac arrest, severe pain, and possible . Pumps that are not refilled at regular intervals can be damages and cause and need for replacement. We continually titrate dose and concentration to optimize pain relief and function. We are limited in concentration for certain drugs to safely deliver medications through the pump and stay within the recommendations from the Polyanalgesic Consensus Committee Guidelines. Depending on dose and concentration these pum
[2023-01-22 15:28] VITALS: BP 122/68; PULSE 105; RESP 18; O2SAT 97; BMI 40.8
== END | disposition home or self-care (01) ==
PROVIDERS: PCP Family Medicine; Visit Provider Nurse Practitioner Family
DX: M50.10 Cervical disc disorder with radiculopathy, unspecified cervical region (principal); M51.16 Intervertebral disc disorders with radiculopathy, lumbar region; Z97.8 Presence of other specified devices
CPT/HCPCS: 62368; 99213; G0463

== ENCOUNTER 2023-01-30 10:27 | Day surgery (SDC) | payer MEDICARE, BC, SELFPAY ==
[2023-01-30 10:44] VITALS: BP 147/87; PULSE 88; RESP 18; TEMP 36.2; O2SAT 97; BMI 40.8
[2023-01-30 10:58] VITALS: BP 132/78; PULSE 94; RESP 18; O2SAT 97
[2023-01-30 11:06] VITALS: BP 153/77; PULSE 96; RESP 18; O2SAT 97
[2023-01-30 11:07] VITALS: BP 153/77; PULSE 96; RESP 18; O2SAT 97
--- NOTE | 2023-01-30 11:19 | XR_ITS ---
FINAL REPORT CLINICAL HISTORY: cough COMPARISON: 04/22/2021 FINDINGS: Two views of the chest were obtained. The heart size and pulmonary vascularity are within normal limits. The mediastinum is normal. No acute pulmonary abnormality is identified. There is no pneumothorax. The bony thorax is intact. IMPRESSION: No active cardiopulmonary disease. Reviewed, Interpreted and Dictated by Scooby Santos III, MD Transcribed by Kandice Pike Authenticated and [facility]
[2023-01-30 11:31] LABS: Basophils # 0.1 K/mm3 (0-0.2); Basophils % 1.3 % (0.1-2.0); Eosinophils # 0.7 K/mm3 (0.0-0.4); Eosinophils % 10.1 % (0.1-12.0); Hematocrit 38.6 % (37.0-47.0); Hemoglobin 13.2 g/dL (12.2-16.2); Lymphocytes # 2.3 K/mm3 (0.7-4.5); Lymphocytes % 34.6 % (10-50); Mean Corpuscular HGB Conc 34.2 g/dL (31.8-35.4); Mean Corpuscular Hemoglobin 30.3 pg (27.0-31.2); Mean Corpuscular Volume 88.7 fl (81-99); Mean Platelet Volume 8.6 fl (7.4-10.4); Monocytes # 0.3 K/mm3 (0.1-1.0); Monocytes % 5.2 % (1.7-9.3); Neutrophils # 3.2 K/mm3 (1.8-7.8); Neutrophils % 48.8 % (37.0-80.0); Platelet Count 232 K/mm3 (142-424); Red Blood Count 4.35 M/mm3 (4.20-5.40); Red Cell Distribution Width 14.7 % (11.5-17.5); White Blood Count 6.5 K/mm3 (4.8-10.8)
[2023-01-30 11:51] LABS: Anion Gap 16.2 mEq/L (5-15); Blood Urea Nitrogen 12 mg/dl (7-17); Calcium 9.5 mg/dl (8.4-10.2); Carbon Dioxide 27 mmol/L (22.0-30.0); Chloride 102 mmol/L (98-107); Creatinine Clearance Estimated 102 mL/min (50-200); Estimated Glomerular Filt Rate 57 ml/min (>60); GFR (African American) 68 ML/MIN (>60); Glucose 93 mg/dl (74-100); Potassium 4.2 mmoL/L (3.5-5.1); Sodium 141 mmol/L (136-145)
--- NOTE | 2023-01-30 11:54 | EXP.PAIN.PRO ---
Procedure Date: 01/30/23 Time: 11:35 Anesthesiologist:: Juan R Mack CRNA Complications:: None Pre-procedure Diagnosis:: Degenerative disc lumbar spine multilevels. Lumbar radiculopathy. Degenerative disc cervical spine cervical radiculopathy. Post-procedure Diagnosis:: Same. Indications for Procedure:: Patient is a very pleasant 62-year-old female comes our clinic today for intrathecal pain pump interrogation refill. Patient currently being managed with morphine sulfate 1 mg/mL at a rate of 0.2142 mg/day. Patient doing very well with her current settings. She is not requesting any change. She does not report any side effects from her current management. She rates her pain 2/10. Procedure Details:: Details of the procedure explained to the patient. Patient taken the procedure room placed in sitting position. The area over the pump was cleaned using chlorhexidine as a cleansing solution. The pump was interrogated. The pump was accessed with ease using 25-gauge inch and half needle. 5.5 mL of solution was withdrawn and discarded appropriately. The pump was then filled with a 20 cc solution containing morphine sulfate 1 mg/mL. The rate will continue at 0.2142 mg/day. Patient tolerated procedure without difficulty. There were no complications. Plan and Disposition:: Patient was discharged without incident.
[2023-01-30 11:58] LABS: Hemoglobin A1C 5.3 % (4.0-6.0)
== END 2023-01-30 10:58 | disposition home or self-care (01) ==
LOC: SC.PAINP 10:28
PROVIDERS: Orthopaedic Surgery Sports Medicine; PCP Family Medicine; Visit Provider Nurse Anesthetist, Certified Registered
DX: M51.16 Intervertebral disc disorders with radiculopathy, lumbar region (principal); M50.10 Cervical disc disorder with radiculopathy, unspecified cervical region; Z97.8 Presence of other specified devices
CPT/HCPCS: 36415; 71046; 80048; 83036; 85025; 95991

== ENCOUNTER 2023-03-20 10:26 | Day surgery (SDC) | payer MEDICARE, BC, SELFPAY ==
[2023-03-20 10:43] VITALS: BP 122/77; PULSE 100; RESP 16; TEMP 36.2; O2SAT 96; BMI 39.8
[2023-03-20 10:50] VITALS: BP 146/86; PULSE 110; O2SAT 93
[2023-03-20 10:57] VITALS: BP 146/86; PULSE 102; O2SAT 96
[2023-03-20 11:05] VITALS: BP 123/74; PULSE 94; RESP 16; O2SAT 96
--- NOTE | 2023-03-20 12:17 | EXP.PAIN.PRO ---
Procedure Date: 03/20/23 Time: 11:00 Anesthesiologist:: Juan R Mack CRNA Complications:: None Pre-procedure Diagnosis:: Degenerative disc lumbar spine multilevels. Lumbar radiculopathy. Degenerative disc disease cervical spine multilevels. Cervical radiculopathy. Post-procedure Diagnosis:: Same. Indications for Procedure:: This patient is a very pleasant 62-year-old female comes our clinic today for intrathecal pain pump interrogation refill. Patient currently being managed with morphine sulfate 1 mg/mL at a rate of 0.2142 mg/day. We will be changing her concentration to 2 mg/mL of morphine sulfate. Rate will continue the same. Procedure Details:: Details of the procedure explained to the patient. The patient taken procedure room placed in the sitting position. The area over the pump is cleansed using chlorhexidine as a cleansing solution. The pump was interrogated. The pump was accessed with ease using a 22-gauge inch and half needle. 9.1 mL of solution was withdrawn and discarded appropriately. The pump was then filled with 20 cc of a solution containing morphine sulfate 2 mg/mL. The right will continue at 0.2142 mg/day. Patient tolerated procedure without difficulty. There are no complications. Plan and Disposition:: Patient was discharged without incident.
== END 2023-03-20 11:05 | disposition home or self-care (01) ==
PROVIDERS: PCP Family Medicine; Visit Provider Nurse Anesthetist, Certified Registered
DX: M51.16 Intervertebral disc disorders with radiculopathy, lumbar region (principal); M50.10 Cervical disc disorder with radiculopathy, unspecified cervical region; Z97.8 Presence of other specified devices
CPT/HCPCS: 95991

== ENCOUNTER 2023-06-04 14:00 | Outpatient (RCR) | payer MEDICARE, BC, SELFPAY | END 2023-06-04 15:20 | disposition home or self-care (01) | LOC: OT 14:00 | PROVIDERS: PCP Family Medicine; Visit Provider Orthopaedic Surgery Sports Medicine | DX: M75.122 Complete rotator cuff tear or rupture of left shoulder, not specified as traumatic (principal) | CPT/HCPCS: 97010; 97014; 97110; 97140; 97164; 97166; 97530; G0283 ==

== ENCOUNTER 2023-06-20 11:03 | Outpatient (POV) | payer MEDICARE, BC, SELFPAY ==
[2023-06-20 12:13] VITALS: BP 132/84; PULSE 108; RESP 18; O2SAT 97; BMI 37.9
--- NOTE | 2023-06-20 12:17 | EXP.PAIN.PRO ---
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 Patient rates her pain today at a 4 out of 10. She denies any new trauma or injury. She does state that she is experiencing worsening pain in her low back and denies any radiating symptoms into her legs. Patient states that she does notice it more frequently when she is bending. She is currently managed with morphine 2 mg/mL with a daily dose of 0.2142 mg/day. She denies any side effects from this medication. 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 Patient does also state from our last visit she did end up having her rotator cuff surgery in February and is doing well with this. She states that it did go better than expected and she was able to even discontinue physical therapy sooner because she did gotten full range of motion of this joint. Her Obed has been reviewed and is appropriate. Physical Exam: General: Alert and oriented x3, no acute distress, pleasant and cooperative Lungs: Respirations even and unlabored, symmetrical chest expansion Eyes: PERRL Musculoskeletal: Flexion and extension of lumbar [spine] somewhat guarded secondary to pain, [antalgic gait noted] Neurological: Speech clear, no gross sensory deficit Procedure Details:: Informed consent was obtained and the risk and benefits of the procedure were explained to the patient. Patient was taken to the procedure room where noninvasive monitoring was placed including noninvasive blood pressure cuff and pulse oximeter. Patient's pump was interrogated and was reprogrammed to morphine 0.2354 mg/day. The patient tolerated the procedure well with no complications. Plan and Disposition:: Patient tolerated her intrathecal increase with no complications and was discharged neurologically intact. I will order the patient a compounded cream. Patient is already scheduled for her intrathecal refill on the of this month. We will follow up with her at this appointment regarding if she had improvement with the increase in the compounded cream. We will see the patient back in the clinic at the next intrathecal refill. Patient has been instructed to contact the clinic with any concerns before the next appointment. Dr. Ramos has reviewed this note and agrees with this plan of care. This note was dictated using voice recognition software and make contain errors or omissions. -- It Is medically necessary for this patient to continue to have their intrathecal pump refilled at regular intervals. This patient had an intrathecal pain pump implanted after meeting criteria of chronic intractable pain for greater than 3 months and failing conservative treatments. Patient has committed and been compliant to the treatment plan and all planned follow up care. Since implantation of the intrathecal pain pump, the patient has had decreased pain and been more functional. Oral medications have been reduced including intake of oral opioids. Patient continues to do well with intrathecal therapy with decrease in pain symptoms and increase in functional status. Stopping intrathecal medications can lead to life threatening withdrawal, seizures, cardiac arrest, severe pain, and possible . Pumps that are not refilled at regular intervals can be damages and cause and need for replacement. We continually titrate dose and concentration to optimize pain relief and function. We are limited in concentration for certain drugs to safely deliver medications through the pump and stay within the recommendations from the [employer] Consensus [employer] Guidelines. Depending on dose and concentration these pumps may need to be refilled sooner than 3 months as we titrate.
== END 2023-06-20 23:59 | disposition home or self-care (01) ==
PROVIDERS: PCP Family Medicine; Visit Provider Nurse Practitioner Family
DX: M50.10 Cervical disc disorder with radiculopathy, unspecified cervical region (principal); M51.16 Intervertebral disc disorders with radiculopathy, lumbar region; Z97.8 Presence of other specified devices; Z45.1 Encounter for adjustment and management of infusion pump
CPT/HCPCS: 62368; 99213; G0463

== ENCOUNTER 2023-06-26 09:46 | Day surgery (SDC) | payer MEDICARE, BC, SELFPAY ==
[2023-06-26 10:09] VITALS: BP 138/85; PULSE 112; RESP 18; TEMP 36.2; O2SAT 97; BMI 37.5
[2023-06-26 10:29] VITALS: BP 152/86; PULSE 109; RESP 18; O2SAT 97
[2023-06-26 10:30] VITALS: BP 152/86; PULSE 109; RESP 18; O2SAT 97
[2023-06-26 10:40] VITALS: BP 122/79; PULSE 91; RESP 18; O2SAT 97
--- NOTE | 2023-06-26 10:44 | EXP.PAIN.PRO ---
Procedure Date: 06/26/23 Time: 10:15 Anesthesiologist:: Juan R Mack CRNA Complications:: None Pre-procedure Diagnosis:: Degenerative disc lumbar spine multilevels. Lumbar radiculopathy. Post-procedure Diagnosis:: Same. Indications for Procedure:: Patient is a very pleasant 63-year-old female comes our clinic today for intrathecal pain pump interrogation and refill. She is currently being managed with morphine sulfate 2 mg/mL at a rate of 0. 235 4 mg/day. Patient doing very well with her current settings. She not requesting any changes. She does not report any side effects or complications from her intrathecal pain pump management. Procedure Details:: Details of the procedure explained to the patient. The patient taken procedure room placed in sitting position. The area of the pumps cleansed using chlorhexidine's cleansing solution. Pump was interrogated. The pump was accessed with ease using a 22-gauge inch and half needle. 8 mL of solution was withdrawn discarded appropriate. The pump was then filled with 20 cc of solution containing morphine sulfate 2 mg/mL. Patient tolerated procedure without difficulty. No complications. Plan and Disposition:: Patient was discharged without incident.
== END 2023-06-26 10:40 | disposition home or self-care (01) ==
PROVIDERS: PCP Family Medicine; Visit Provider Nurse Anesthetist, Certified Registered
DX: M51.16 Intervertebral disc disorders with radiculopathy, lumbar region (principal); Z97.8 Presence of other specified devices; Z45.1 Encounter for adjustment and management of infusion pump
CPT/HCPCS: 95991

== ENCOUNTER 2023-08-22 11:29 | Outpatient (POV) | payer MEDICARE, BC, SELFPAY ==
--- OUTSIDE RECORDS SUMMARY | 2023-08-22 11:32 | XMS_ITS | Continuity of Care Document ---
Author Name Unknown Organization [facility] Address [address] [address] Phone Care Team Providers Care Business Banker Name Role Phone Cristina Garcia APRN Unavailable Unavailable Allergies, Adverse Reactions, Alerts Substance Reaction Status Criticality No Known Allergies Active No Inform ation Medications Medication Instructions Dosage Effective Dates (start - stop) Status Comments gabapentin 600 mg tablet take 2 tablet by oral route 3 times every day 1200 MG - Active duloxetine 60 mg capsule,delayed release take 1 capsule by oral route 2 times every day 60 MG - Active cyclobenzaprine 5 mg tablet take 1 tablet by oral route every day at bedtime as needed - Active celecoxib 200 mg capsule take 1 capsule by oral route 2 times every day 200 MG - Active morphine 4 mg/mL intravenous solution inject 1 milliliter by intravenous route every 4 - 6 hours as needed 4 MG - Active Ozempic 0.25 mg or 0.5 mg (2 mg/3 mL) subcutaneous pen injector inject (0.5MG) by subcutaneous route every week on the same day of each week 0.5 MG - Active Syringe 3 mL 25 gauge x 1 One with each B-12 injection - Active cyanocobalamin (vit B-12) 1,000 mcg/mL injection solution inject 1 milliliter by intramuscular route monthly. - Active spironolactone 25 mg tablet take 1 tablet by oral route every day 25 MG - Active aspirin 81 mg tablet,delayed release take 1 tablet by oral route every day 81 MG - Active meclizine 12.5 mg tablet take 1 tablet by oral route 3 times every day as needed as needed 12.5 MG - Active losartan 25 mg tablet take 1 tablet by oral route every day 25 MG - Active Vitamin D3 1,000 unit capsule take 1 capsule by oral route every day 1 capsule - Active fexofenadine 180 mg tablet take 1 tablet by oral route every day 180 MG - Active Protonix 40 mg tablet,delayed release take 1 tablet by oral route every day 40 MG - Active VITAMIN C (unknown strength) take 1 tablet by oral route every day Not Available - Active Proventil HFA 90 mcg/actuation aerosol inhaler take 90mcg aerosol inhaler once a day as needed - Active Requip 0.5 mg tablet take 1 tablet by oral route every day 0.5 MG - Active montelukast 10 mg tablet take 1 tablet by oral route every day in the evening 10 MG - Active zolmitriptan 5 mg tablet take 1 tablet by oral route once; if headache returns, the dose may be repeated after 2 hours, notto exceed 10 mg within 24 hours as needed 5 MG - Active gabapentin 600 mg tablet take 2 tablet by oral route 3 times every day 1200 MG - No Longer Active duloxetine 60 mg capsule,delayed release take 1 capsule by oral route 2 times every day 60 MG - No Longer Active cyclobenzaprine 5 mg tablet take 1 tablet by oral route every day at bedtime as needed - No Longer Active celecoxib 200 mg capsule take 1 capsule by oral route 2 times every day 200 MG - No Longer Active prednisone 2.5 mg tablet take 1 tablet by oral route every day 2.5 MG - No Longer Active Adrenal [employer] capsule Once Daily - No Longer Active tramadol 50 mg tablet take 1 tablet by oral route 3 times every day as needed 50 MG - No Longer Active Procedures Procedure Date Office Visit Level IV Office Visit Level IV Office Visit Level IV Drug Test Presumptive,any num,by inst No v-09-2022 Drug Test Presumptive,any num,by inst No Office Visit Level IV Office Visit Level IV Drug Test Presumptive,any num,by inst No Office Visit Level IV Office Visit Level IV Drug Test Presumptive,any num,by inst Se Office Visit Level IV 25 Hydroxy Includes Fractions If Perform EL-anti-CCP/2 Dna Antb 1 Stranded Dna Antb [place]/2 Stranded Sm,FINANCIAL PLANNER/Sm,SSA,SSB,Scl-70,chrom,centromer Tb Cell Mediated Antign Respnse Gamma In Rheumatoid Factor Kenneth RF/3 IgM 020 RF/3 IgG/IgA Office Visit Level IV Office Visit Level IV Office Visit Level IV Office Visit Level IV Office Visit Level V Radiological Exam Knee 1-2 Views 2016 Office Visit Level IV Advance Directives Directive Yes / No Effective Date File Name No Information Encounters Encounter Description Practice Location Reason(s) For Visit Diagnoses Date Provider Providers Copied on Encounter Office Visit Level IV [facility] [address] [place] [address], [id number], tel:[phone] [facility] Follow Up of Fibromyalgia Syndrome (chief complaint)Os teoarthritis (chief complaint) Generalized osteoarthrit isFibromyalg iaLong term use of NSAIDOther specified personal risk factorsBody mass index (BMI) 40.0-44.9, adult 3 Jose Evans. [address] [place] [address], [place] [address], [place], [place], [id number], . tel:[phone] Referring Provider: Afua Burnett, [address] [facility], [place], [address]. tel:[phone] Office Visit Level IV [facility], [address] [address], [place], [place], [id number], [place] tel:[phone] [facility]. Follow Up of Fibromyalgia Syndrome (chief complaint)Os teoarthritis (chief complaint) Generalized osteoarthrit isFibromyalg iaLong term use of NSAIDOther specified personal risk factorsBody mass index (BMI) 45.0-49.9, adult Jose Alberto- 3 [facility]. [address], [address], [place], [address]. tel:[phone] Specialist: Artemio Hudson, [address], [place], [address]. tel:[phone] alist: Zay Ramos, [address] [place] [address], [address]. tel:[phone] alist: Gil Villarreal, [address] [place] [address], [address]. tel:[phone] alist: Nate Lee, [address] [place], [address]. tel:[phone] Provider: Afua Burnett, [address] [place], [address]. tel:[phone] Office Visit Level IV [facility] [address] [place] [address], [place], [place], [id number], [place] tel:[phone] [facility]. Follow Up of Fibromyalgia Syndrome (chief complaint)Os teoarthritis (chief complaint) Fibromyalgia FPC use of NSAIDOther specified personal risk factorsGener alized osteoarthrit is Nov- 2 [facility]. [address], [address], [place], [address]. tel:[phone] Specialist: Artemio Hudson, [address], [place], [address]. tel:[phone] alist: Zay Ramos, [address], [address]. tel:[phone] alist: Gil Landerosjennie, [address] [facility], [place], [address]. tel:[phone] alist: Nate Lee, [address] [place], [address]. tel:[phone] ring Provider: Afua Burnett, [address] [place], [address]. tel:[phone] [facility] [address], [id number], [place] tel:[phone] [facility] No Information 2 [facility]. [address] [address], [place], [address]. tel:[phone] Referring Provider: Afua Burnett, [facility] [place], [address]. tel:[phone] Office Visit Level IV [facility], [address], [id number], [place] tel:[phone] [facility] Follow Up of Fibromyalgia Syndrome (chief complaint) B12 DeficiencyVi tamin D deficiencyFi bromyalgiaLo ng term use of NSAIDOther specified personal risk factorsBody mass index (BMI) 45.0-49.9, adult 2 David Oliver. [address], [place] [address], [place], [place], [id number]. tel:[phone] Referring Provider: Afua Burnett, [facility] [place], [address]. tel:[phone] Office Visit Level IV [facility] [address], [id number], [place] tel:[phone] [facility] Follow Up of Fibromyalgia Syndrome (chief complaint) B12 DeficiencyVi tamin D deficiencyFi bromyalgiaLo ng term use of NSAIDOther specified personal risk factors 1 [facility]. [address] [facility] [address], [place], [address]. tel:[phone] Specialist: Artemio Hudson, [address], [place], [address]. tel:[phone] alist: Zay Vázquezflash, [address], [address]. tel:[phone] alist: Gil Villarreal, [address] [facility], [place], [address]. tel:[phone] ring Provider: Afua Burnett, [facility] [place], [address]. tel:[phone] [facility], [address] [place] [address], [id number], [place] tel:[phone] [facility]. No Information 1 [facility]. [address] [facility] [address], [place], [address]. tel:[phone] Referring Provider: Afua Burnett, [facility] [place] [place], [address]. tel:[phone] Office Visit Level IV [facility], [address] [place] [address], [id number], [place] tel:[phone] [facility] Follow Up of Fibromyalgia Syndrome (chief complaint) B12 DeficiencyVi tamin D deficiencyFi bromyalgiaLo ng term use of NSAIDOther specified personal risk factors 0 1 Jose Evans. [address] [place] [address], [id number], [place]. tel:[phone] Referring Provider: Afua Burnett, [facility] [place], [address]. tel:[phone] Office Visit Level IV [facility], [address] [place] [address], [id number], [place] tel:[phone] [facility] Follow Up of Fibromyalgia Syndrome (chief complaint) B12 DeficiencyVi tamin D deficiencyFi bromyalgiaLo ng term use of NSAIDOther specified personal risk factors Sep-0 0 [facility]. [address], [place], [address]. tel:[phone] Specialist: Artemio Hudson, [address], [place], [address]. tel:[phone] alist: Zay Ramos, [address], [address]. tel:[phone] alist: Gil Villarreal, [address] [place], [address]. tel:[phone] ring Provider: Afua Burnett, [address]] [place], [address]. tel:[phone] [facility], [address], [id number], [place] tel:[phone] [facility] No Information Sep-0 0 [facility]. [address], [address], [place], [address]. tel:[phone] Referring Provider: Afua Burnett, [address] [place]] [place], [address]. tel:[phone] Office Visit Level IV [facility] [address] [place] [address], [place], [place], [id number], [place] tel:[phone] [facility] Follow Up of Fibromyalgia Syndrome (chief complaint) B12 DeficiencyVi tamin D deficiencyFi bromyalgiaFa tigueLong term use of NSAIDBody mass index (BMI) 40.0-44.9, adult Ruddy-2 0 0 [facility]. [address], [place], [address]. tel:[phone] Specialist: Artemio Hudson, [address], [place], [address]. tel:[phone] alist: Zay Ramos, [address], [address]. tel:[phone] alist: Gil Villarreal, [address] [facility], [place], [address]. tel:[phone] ring Provider: Afua Burnett, [place], [address]. tel:[phone] [facility] [address] [place] [address], [id number], tel:[phone] [facility] No Information 0 [facility]. [address], [address], [address]. tel:[phone] Referring Provider: Afua Burnett, [facility] [place], [address]. tel:[phone] [facility] [address] [place] [address], [id number], [place] tel:[phone] [facility] No Information 9 David Oliver. [address], [address], [id number]. tel:[phone] Office Visit Level IV [facility] [address] [place] [address], [id number], [place] tel:[phone] [facility] Fibromyalgia Syndrome (chief complaint) Fibromyalgia Body mass index (BMI) 38.0-38.9, adultLong term use of NSAIDChronic Low Back PainFatigueH ashimoto's thyroiditisV itamin D deficiencyB1 2 Deficiency 9 David Oliver. [address], [address], [id number]. tel:[phone] Referring Provider: Afua Burnett, [address] [place], [address]. tel:[phone] Office Visit Level IV [facility], [address], [id number], [place] tel:[phone] [facility] Fibromyalgia Syndrome (chief complaint) Fibromyalgia Body mass index (BMI) 38.0-38.9, adultLong term use of NSAID 9 Jenny Vanegasy. [address] [facility], [place] [address], [place], [address]. tel:[phone] Specialist: Artemio Hudson, [address] [facility] [address], [place], [address]. tel:[phone] alist: Zay Ramos, [address], [address]. tel:[phone] alist: Gil Villarreal, [address] [place] [address], [address]. tel:[phone] ring Provider: Afua Burnett, [facility] [place], [address]. tel:[phone] Office Visit Level IV [facility], [address] [place] [address], [place], [place], [id number], [place] tel:[phone] [facility] Fibromyalgia Syndrome (chief complaint) Pain in left kneeBack painFibromya lgiaBody mass index (BMI) 38.0-38.9, adultLong term use of NSAIDOsteoar thritisChond romalacia 8 David Oliver. [address], [place], [place], [id number]. tel:[phone] Referring Provider: Afua Burnett, [address] [place], [address]. tel:[phone] Office Visit Level IV [facility] [address], [id number], [place] tel:[phone] [facility] Fibromyalgia Syndrome (chief complaint) Pain in left kneeBack painFibromya lgiaLong term use of NSAIDBody mass index (BMI) 38.0-38.9, adult Mar- 7 [facility]. [address], [place], [address]. tel:[phone] Specialist: Artemio Hudson, [address] [facility] [address], [place], [address]. tel:[phone] alist: Zay Ramos, [address] [place] [address], [address]. tel:[phone] alist: Gil Villarreal, [address] [place] [address], [address]. tel:[phone] Provider: Afua Burnett, [address] [place], [address]. tel:[phone] [facility] [address] [place] [address], [id number], [place] tel:[phone] [facility] DDD (DEGENERATIV E DISC DISEASE) 7 [facility]. [address], [place], [address]. tel:[phone] Office Visit Level V [facility] [address], [id number], [place] tel:[phone] [facility] Fibromyalgia Syndrome (chief complaint) Fibromyalgia termite helper use of NSAIDPain in left kneeBack pain 7 [facility]. [address], [place], [address]. tel:[phone] Specialist: Artemio Hudson, [address], [place], [address]. tel:[phone] alist: Zay Ramos, [address], [address]. tel:[phone] ring Provider: Afua Burnett, [address] [place], [address]. tel:[phone] [facility], [address] [place] [address], [id number], tel:[phone] [facility] No Information 7 [facility]. [address] [facility], [place] [address], [place], [address]. tel:[phone] [facility] [address] [place] [address], [id number], tel:[phone] [facility] Fibromyalgia FPC use of NSAID 7 [facility]. [address] [facility] [address], [place], [address]. tel:[phone] Office Visit Level IV [facility] [address], [id number], tel:[phone] [facility] No Information 7 [facility]. [address] [place], [place] [address]fidel Stanton, [place] [address], [place], [address]. tel:[phone] Referring Provider: Afua Burnett, [address] [place], [address]. tel:[phone] Family History Family Member Type Diagnosis Age At Onset Sister Problem (finding) Anxiety Sister Problem (finding) psoriasis Daughter Problem (finding) Anxiety Mother Problem (finding) ulcerative colitis Father Problem (finding) Cancer Son Problem (finding) Anxiety Father Problem (finding) psoriasis Mother Problem (finding) hypertension Mother Problem (finding) Cancer Immunizations Vaccine Date Status Comments SARS-COV-2 (COVID-19) vaccin e, mRNA, spike protein, LNP, preservative free, 100 mcg/0.5mL dose (Moderna) administered Source: Other Provid er Flu (split) (3 yrs or older) administered Source: Other Provider SARS-COV-2 (COVID-19) vaccin e, mRNA, spike protein, LNP, preservative free, 100 mcg/0.5mL dose (Moderna) administered Source: Other Provid er SARS-COV-2 (COVID-19) vaccin e, mRNA, spike protein, LNP, preservative free, 100 mcg/0.5mL dose (Moderna) administered Source: Other Provid er Flu (split) (3 yrs or older) administered Note: aprox date ; Source: Public Agency Payers Payer name Insurance type Covered green party ID Authorphoenixa cinthya(s) Medicare [id number] [facility] [address] [id number] Social History Type Description Quantity Date Captured Comments Alcohol Use Details Caffeine Use Details Unknown Tobacco Use Status No Information Smoking Status Former smoker Sex Female Vital Signs Date / Time: Height Weight BMI Pulse Rate Blood Pressure Temperature Respiratory Rate Body Surface Area Head Circumference Head Circ. Percentile Wt./Marvel. Percentile BMI percentile Pulse Ox Inhaled Ox 9:50 AM 64.00 in 108.862 kg (240.00 lbs) 41.2 0 kg/m eter (2) 93 /min 118/80 mm[Hg] 97.40 F Chief Complaint And Reason For Visit From encounter dated '03/07/2023 09:45'. Follow Up of Fibromyalgia Syndrome (chief complaint) Osteoarthritis (chief complaint) Reason For Referral Reason For Referral No Information Plan Of Treatment Date Type Action Status Goal Lifestyle educat ion regarding diet completed Goal Lifestyle educat ion regarding diet completed Goal Lifestyle educat ion regarding diet completed Goal Lifestyle educat ion regarding diet completed Nov-05-2021 Goal Lifestyle educat ion regarding diet completed Goal Lifestyle educat ion regarding diet completed Goal Dietary manageme nt education, guidance, and counseling completed Referral Ordered: Zay Ramos MD -Pain Medicine (related to Fibromyalgia) ordered Referral Referred To: Zay Ramos MD [address] [place] [address], [phone] Ordered: Referrals: Pain Medicine. Zay Ramos MD. Evaluate and treat ordered Appointment Sue Cardona BOOKED Patient Education Neck Arthritis: Exercis es completed Patient Education Hand Arthritis: Exercis es completed Patient Education Foot Arthritis: Exercis es completed Patient Education Arthritis: Care Instruc tions completed Patient Education Muscle Aches: Care Inst ructions completed Patient Education Musculoskeleta l Pain: Care Instructio~ completed Patient Education Neuropathic Pa in: Care Instructions completed Patient Education Fibromyalgia: Care Inst ructions completed Future Order: Lab Order Flex 2 2 UDS ([id number]), Ordered on: Ordered Future Order: Lab Order CBC With Differential/Platelet ([id number]), Ordered on: Ordered Future Order: Lab Order Comp. Me tabolic Panel (14) ([id number]), Ordered on: Ordered Future Order: Lab Order Vitamin B12 ([id number]), Ordered on: Ordered Future Order: Lab Order 25-Hyd angela Vitamin D (Theratest) (VITADEI), Ordered on: Ordered Future Order: Lab Order Vitamin D, 25-Hydroxy ([id number]), Ordered on: Ordered Future Order: Lab Order Vitamin B12 and Folate ([id number]), Ordered on: Ordered Future Order: Lab Order In-Jensen bond Urine Drug Screen ([id number]), Ordered on: Ordered Future Order: Lab Order Sediment ation Rate-Westergren ([id number]), Ordered on: Ordered Future Order: Lab Order Vitamin B12 ([id number]), Ordered on: Ordered Future Order: Lab Order 25-Hyd angela Vitamin D (Theratest) (VITADEI), Ordered on: Ordered Future Order: Lab Order CBC With Differential/Platelet ([id number]), Ordered on: Ordered Future Order: Lab Order C-Reacti ve Protein, Quant ([id number]), Ordered on: Ordered Future Order: Lab Order Creatine Kinase,Total,Serum ([id number]), Ordered on: Ordered Future Order: Lab Order CBC With Differential/Platelet ([id number]), Ordered on: Ordered Future Order: Lab Order Antinucl ear Antibodies, TOSIN, IFA ([id number]), Ordered on: Ordered Future Order: Lab Order Anti-Leann- 1 ([id number]), Ordered on: Ordered Future Order: Lab Order C4+C3 ([id number]), Ordered on: Ordered Future Order: Lab Order Comp. Me tabolic Panel (14) ([id number]), Ordered on: Ordered Future Order: Lab Order C-Reacti ve Protein, Quant ([id number]), Ordered on: Ordered Future Order: Lab Order Creatine Kinase,Total,Serum ([id number]), Ordered on: Ordered Future Order: Lab Order Hepatiti s Panel (4) ([id number]), Ordered on: Ordered Future Order: Lab Order HLA B 27 Disease Association ([id number]), Ordered on: Ordered Future Order: Lab Order Sediment ation Rate-Westergren ([id number]), Ordered on: Ordered Future Order: Lab Order Urinalys is, Routine ([id number]), Ordered on: Ordered Future Order: Lab Order Quanti FERON - TB Gold IT Plus (Theratest) (TBGP), Ordered on: Ordered Future Order: Lab Order EL-TOSIN 9C BRIA Method, IgG (Theratest) (ANA9C), Ordered on: Ordered Future Order: Lab Order Cyclic Citrullinated Peptide-4P (Theratest) (CCP4P), Ordered on: Ordered Future Order: Lab Order 25-Hyd angela Vitamin D (Theratest) (VITADEI), Ordered on: Ordered Future Order: Lab Order Rheuma toid Factor/3 IgM, IgG, IgA (Theratest) (RF3), Ordered on: Ordered Future Order: Lab Order Vitamin B12 ([id number]), Ordered on: Ordered Future Order: Lab Order CBC With Differential/Platelet ([id number]), Ordered on: Ordered Future Order: Lab Order Comp. Me tabolic Panel (14) ([id number]), Ordered on: Ordered Future Order: Lab Order Vitamin D, 25-Hydroxy ([id number]), Ordered on: Ordered Future Order: Lab Order Vitamin B12 and Folate ([id number]), Ordered on: Ordered Future Order: Radiology Order Lo wer Extremity/Leg (joint) MRI WITHOUT Contrast ([id number]), Ordered on: Ordered Future Order: Radiology Order Kn ee X-ray; Limited (1 or 2 views) ([id number]), Ordered on: Ordered Future Order: Lab Order Comp. Me tabolic Panel (14) ([id number]), Sent on: Sent Future Order: Lab Order CBC With Differential/Platelet ([id number]), Sent on: Sent History Of Present Illness Encounter Date Complaint History Of Prese nt Illness Follow Up of Fibromyalgia Syndro me Osteoarthritis Follow Up of Fibromyalgia Syndro me Osteoarthritis Follow Up of Fibromyalgia Syndro me Osteoarthritis Follow Up of Fibromyalgia Syndro me Follow Up of Fibromyalgia Syndro me Follow Up of Fibromyalgia Syndro me Follow Up of Fibromyalgia Syndro me Follow Up of Fibromyalgia Syndro me Fibromyalgia Syndrome Fibromyalgia Syndrome Fibromyalgia Syndrome Fibromyalgia Syndrome Fibromyalgia Syndrome Functional Status Date Functional Assessmen t Pain Score 6/10 Instructions Date Instruction Additional Infor loyd 1. Weight loss would be helpful2. She has taken/tried Tylenol PRN 3. She has taken NSAIDS like Celebrex PRN 4. She has tried muscle relaxers like Baclofen PRN 5. She has seen pain management specialists 6. She has had back injections & Rhizotomy procedures done 7. She has seen orthopaedic surgeons 8. She has seen spine surgeons 9. She has done some physical therapy 10. She had knee replacement surgery 11. She has used a TENS unit 12. She has taken gabapentin for neuropathic pain 13. She has seen a [id number]. She has taken hydrocodone/APAP 15. She has tried taking Tramadol PRN 16. She has had shoulder injections 17. She had a pain pump [id number]. She had left shoulder surgery [address] Nathan.19. No longer taking steroids and was told by tile ditcher that she cannot have any more injections.20. She has swelling and pain in hands, especially 3rd right PIP.21. Handout on neck stretches given to patient. Related to Generalized osteoarthritis 1. H & P Compatible with fibromyalgia. 2. Encourage aerobic activity and sleep hygiene.3. If she has not had a sleep study/consultation consider getting this done. 4. We gave her an educational handout to take home and review on hand arthritis5. She will follow up with us in 6 months.6. She tried taking Trazodone to help sleep 7. She has seen a chiropractor and. She has tried using a TENS unit. 8. She has taken Cymbalta 60 twice/day.9. She has taken gabapentin 1200 mg TID.10. She has taken Tramadol PRN. 11. She has chronic back/hip pain. She has seen Dr. Ramos for pain [id number]. Weight loss would be helpful. She is taking Ozempic for weight loss.13. She has taken Celebrex PRN for joint pain. We refilled this today. 14. She has taken various muscle relaxers like Flexeril PRN for muscle pain/spasms. 15. She tried Fcyyrdjk43. Her prognosis is guarded. She has chronic/constant pain 17. She has tried taking Elavil 18. We will request her most recent labs from the PCP office 19. She had a pain pump installed Related to Fibromyalgia Do not take over-the counter anti-inflammatory medicines, such as ibuprofen or naproxen (Advil, Motrin, Aleve and others), as they may cause problems when combined with your prescription medications. In general, low dose daily aspirin for the treatment or prevention of heart disease or stroke is safe to take. Acetaminophen (Tylenol) is generally safe to take as directed for headaches, cramps or other aches and pains or fever reduction Related to FPC use of NSAID Check NICK and Reji wright screen as required.Drug screen completed 09/21/22.No signs of misuse or diversion. Related to Other specified personal risk factors Lifestyle education regarding di et Related to Body mass index [BMI] 40.0-44.9, adult 1. Weight loss would be helpful2. She has taken/tried Tylenol PRN 3. She has taken NSAIDS like Celebrex PRN 4. She has tried muscle relaxers like Baclofen PRN 5. She has seen pain management specialists 6. She has had back injections & Rhizotomy procedures done 7. She has seen orthopaedic surgeons 8. She has seen spine surgeons 9. She has done some physical therapy 10. She had knee replacement surgery 11. She has used a TENS unit 12. She has taken gabapentin for neuropathic pain 13. She has seen a [id number]. She has taken hydrocodone/APAP 15. She has tried taking Tramadol PRN 16. She has had shoulder injections 17. She had a pain pump installed Related to Generalized osteoarthritis Check NICK and Reji wright screen as required.Drug screen ordered today Related to Other specified personal risk factors 1. H & P Compatible with fibromyalgia. 2. Encourage aerobic activity and sleep hygiene.3. If she has not had a sleep study/consultation consider getting this done. 4. We gave her an educational handout to take home and review on hand arthritis5. She will follow up with us in 6 months.6. She tried taking Trazodone to help sleep 7. She has seen a chiropractor and. She has tried using a TENS unit. 8. She has taken Cymbalta 60 twice/day.9. She has taken gabapentin 1200 mg TID.10. She has taken Tramadol PRN. 11. She has chronic back/hip pain. She has seen Dr. Ramos for pain [id number]. Weight loss would be helpful. 13. She has taken Celebrex PRN for joint pain. We refilled this today. 14. She has taken various muscle relaxers like Flexeril PRN for muscle pain/spasms. 15. She tried [id number]. Her prognosis is guarded. She has chronic/constant pain 17. She has tried taking Elavil 18. We will request her most recent labs from the PCP office 19. She had a pain pump installed Related to Fibromyalgia Do not take over-the counter anti-inflammatory medicines, such as ibuprofen or naproxen (Advil, Motrin, Aleve and others), as they may cause problems when combined with your prescription medications. In general, low dose daily aspirin for the treatment or prevention of heart disease or stroke is safe to take. Acetaminophen (Tylenol) is generally safe to take as directed for headaches, cramps or other aches and pains or fever reduction Related to termite helper use of NSAID Lifestyle education regarding di et Related to Body mass index [BMI] 45.0-49.9, adult 1. Weight loss would be helpful2. She has taken/tried Tylenol PRN 3. She has taken NSAIDS like Celebrex PRN 4. She has tried muscle relaxers like Baclofen PRN 5. She has seen pain management specialists 6. She has had back injections & Rhizotomy procedures done 7. She has seen orthopaedic surgeons 8. She has seen spine surgeons 9. She has done some physical therapy 10. She had knee replacement surgery 11. She has used a TENS unit 12. She has taken gabapentin for neuropathic pain 13. She has seen a istldusxhrxp75. She has taken hydrocodone/APAP 15. She has tried taking Tramadol PRN 16. She has had shoulder injections Related to Generalized osteoarthritis 1. H & P Compatible with fibromyalgia. 2. Encourage aerobic activity and sleep hygiene.3. If she has not had a sleep study/consultation consider getting this done. 4. We gave her an educational handout to take home and review on foot arthritis5. She will follow up with us in 6 months.6. She tried taking Trazodone to help sleep 7. She has seen a chiropractor and. She has tried using a TENS unit. 8. She is currently taking Cymbalta 60 twice/day.9. She is currently taking gabapentin 1200 mg TID.10. She has taken Tramadol PRN. 11. She has chronic back/hip pain. She has seen Dr. Ramos for pain [id number]. Weight loss would be helpful. 13. She takes Celebrex PRN for joint pain. We refilled this today. 14. She has taken various muscle relaxers like Flexeril PRN for muscle pain/spasms. 15. She tried Axeeqtli46. Her prognosis is guarded. She has chronic/constant pain 17. She has tried taking Elavil 18. We will request her most recent labs from the PCP office Related to Fibromyalgia Do not take over-the counter anti-inflammatory medicines, such as ibuprofen or naproxen (Advil, Motrin, Aleve and others), as they may cause problems when combined with your prescription medications. In general, low dose daily aspirin for the treatment or prevention of heart disease or stroke is safe to take. Acetaminophen (Tylenol) is generally safe to take as directed for headaches, cramps or other aches and pains or fever reduction Related to FPC use of NSAID Check NICK and Reji g screen as required.Drug screen ordered today Related to Other specified personal risk factors Lifestyle education regarding di et Related to Body mass index [BMI] 45.0-49.9, adult Now managed by Endoc rinology at [facility] Related to B12 Deficiency Check NICK and Reji g screen as required.Drug screen [place] today. Related to Other specified personal risk factors Now managed by endoc rinologist at [facility]. Related to Vitamin D deficiency Do not take over-the counter anti-inflammatory medicines, such as ibuprofen or naproxen (Advil, Motrin, Aleve and others), as they may cause problems when combined with your prescription medications. In general, low dose daily aspirin for the treatment or prevention of heart disease or stroke is safe to take. Acetaminophen (Tylenol) is generally safe to take as directed for headaches, cramps or other aches and pains or fever reduction Related to termite helper use of NSAID 1. H & P Compatible with fibromyalgia. 2. Encourage aerobic activity and sleep hygiene.3. If she has not had a sleep study/consultation consider getting this done. 4. We gave her an educational handout to take home and review5. She will follow up with us in 6 months.6. She tried taking Trazodone to help sleep 7. She has seen a chiropractor and. She has tried using a TENS unit. 8. She is currently taking Cymbalta 60 twice/day.9. She is currently taking gabapentin 1200 mg TID.10. She has taken Tramadol PRN. 11. She has chronic back/hip pain. Now seeing Dr. Ramos, for pain management and they are discussing nerve stimulator. 12. Weight loss would be helpful. 13. She takes Celebrex PRN for joint pain. We refilled this today. 14. She takes Flexeril PRN for muscle pain/spasms. 15. She tried [id number]. Her prognosis is guarded. She has chronic/constant pain 17. She has tried taking Elavil Related to Fibromyalgia Lifestyle education regarding di et Related to Body mass index [BMI] 45.0-49.9, adult Check NICK and Reji wright screen as required.Drug screen ordered today.Refill today. Related to Other specified personal risk factors 04/29/19: Vitamin D 2 7.0Recheck level today Related to Vitamin D deficiency 1. H & P Compatible with fibromyalgia. 2. Encourage aerobic activity and sleep hygiene.3. If she has not had a sleep study/consultation consider getting this done. 4. We gave her an educational handout to take home and review5. She will follow up with us in 6 months.6. She tried taking Trazodone to help sleep 7. She has seen a chiropractor and. She has tried using a TENS unit. 8. She is currently taking Cymbalta 60 twice/day.9. She is currently taking gabapentin 1200 mg TID.10. She has taken Tramadol PRN. 11. She has chronic back/hip pain. She has seen pain management in the past, Dr. Ramos, and received injections. She would like to see him again if possible. We will refer her as [id number]. Weight loss would be helpful. 13. She takes Celebrex PRN for joint pain. We refilled this today. 14. She takes Flexeril PRN for muscle pain/spasms. 15. She tried Mlnajfsu20. Her prognosis is guarded. She has chronic/constant pain 17. She has tried taking Elavil Related to Fibromyalgia Do not take over-the counter anti-inflammatory medicines, such as ibuprofen or naproxen (Advil, Motrin, Aleve and others), as they may cause problems when combined with your prescription medications. In general, low dose daily aspirin for the treatment or prevention of heart disease or stroke is safe to take. Acetaminophen (Tylenol) is generally safe to take as directed for headaches, cramps or other aches and pains or fever reduction Related to termite helper use of NSAID Recheck levels.Refil l supplements/Syringes today Related to B12 Deficiency Lifestyle education regarding di et Related to Body mass index [BMI] 40.0-44.9, adult 04/29/19: Vitamin D 2 7.0Recheck level today. Related to Vitamin D deficiency Check NICK and Reji wright screen as required.Drug screen ordered today.Refill today. Related to Other specified personal risk factors 1. H & P Compatible with fibromyalgia. 2. Encourage aerobic activity and sleep hygiene.3. If she has not had a sleep study/consultation consider getting this done. 4. Handout on muscle aches given to her to take home and review. 5. She will follow up with us in 6 months.6. She is no longer taking Trazodone. Improving sleep can improve myofascial pain. 7. She has seen a chiropractor and. She has tried using a TENS unit. 8. She is currently taking Cymbalta 60 twice/day.9. She is currently taking gabapentin 1200 mg TID.10. She takes Tramadol PRN 11. She sees pain management and they have given her injections in her back PRN 12. Weight loss would be helpful. She has had a brochure on [employer].13. She takes Celebrex PRN for joint pain. I refilled this today. 14. She takes Flexeril PRN for muscle pain/spasms. 15. Refill Rheumate. 16. She had right foot surgery recently.17. She will have left knee replaced soon. Related to Fibromyalgia Recheck levels.Refil l supplements/Syringes today. Related to B12 Deficiency Do not take over-the counter anti-inflammatory medicines, such as ibuprofen or naproxen (Advil, Motrin, Aleve and others), as they may cause problems when combined with your prescription medications. In general, low dose daily aspirin for the treatment or prevention of heart disease or stroke is safe to take. Acetaminophen (Tylenol) is generally safe to take as directed for headaches, cramps or other aches and pains or fever reduction. Related to FPC use of NSAID Check NICK and Reji g screen as required.Drug screen ordered today.Refill today. Related to Other specified personal risk factors Recheck levels. Refi ll supplements/Syringes today. Related to B12 Deficiency Recheck levels. Related to Vitam in D deficiency 1. H & P Compatible with fibromyalgia. 2. Encourage aerobic activity and sleep hygiene.3. If she has not had a sleep study/consultation consider getting this done. 4. Handout on muscle aches given to her to take home and review. 5. She will follow up with us in 6 months.6. She is no longer taking Trazodone. Improving sleep can improve myofascial pain. 7. She has seen a chiropractor and. She has tried using a TENS unit. 8. She is currently taking Cymbalta 60 twice/day.9. She is currently taking gabapentin 1200 mg TID.10. She takes Tramadol PRN 11. She sees pain management and they have given her injections in her back PRN 12. Weight loss would be helpful. I gave her a brochure on [employer]. 13. She takes Celebrex PRN for joint pain. I refilled this today. 14. She takes Flexeril PRN for muscle pain/spasms. 15. Refill Rheumate. Related to Fibromyalgia Do not take over-the counter anti-inflammatory medicines, such as ibuprofen or naproxen (Advil, Motrin, Aleve and others), as they may cause problems when combined with your prescription medications. In general, low dose daily aspirin for the treatment or prevention of heart disease or stroke is safe to take. Acetaminophen (Tylenol) is generally safe to take as directed for headaches, cramps or other aches and pains or fever reduction. Related to FPC use of NSAID Recheck levels. Related to B12 D eficiency Recheck levels. Related to Vitam in D deficiency Check labs. Related to Fatig ue Do not take over-the counter anti-inflammatory medicines, such as ibuprofen or naproxen (Advil, Motrin, Aleve and others), as they may cause problems when combined with your prescription medications. In general, low dose daily aspirin for the treatment or prevention of heart disease or stroke is safe to take. Acetaminophen (Tylenol) is generally safe to take as directed for headaches, cramps or other aches and pains or fever reduction. Related to termite helper use of NSAID 1. H & P Compatible with fibromyalgia. 2. Encourage aerobic activity and sleep hygiene.3. If she has not had a sleep study/consultation consider getting this done. 4. Handout on musculoskeletal pain given to her to take home and review. 5. She will follow up with us in 6 months.6. She is no longer taking Trazodone. Improving sleep can improve myofascial pain. 7. She sees a chiropractor and uses a TENS unit at home. 8. She is currently taking Cymbalta 60 twice/day.9. She is currently taking gabapentin 1200 mg TID.10. She takes Tramadol PRN 11. She sees pain management and get injections in her back PRN 12. Weight loss would be . She takes Celebrex PRN for joint pain. I refilled this today. 14. She takes Flexeril PRN for muscle pain/spasms. 15. There is not much else we have to offer for this. We could taper her off of gabapentin and try Lyrica. She has declined this in the past due to fear of weight gain. Related to Fibromyalgia Lifestyle education regarding di et Related to Body mass index (BMI) 40.0-44.9, adult mgmt per endocrinorestes sanchez at [facility] Related to Edis's thyroiditis check b-12, vitamin D Related to Fatigue Dr. Swartz 08/25, some he lp Related to Chronic Low Back Pain 1. H & P Compatible with fibromyalgia. She feels like she is getting worse. 2. Encourage aerobic activity and sleep hygiene.3. If she has not had a sleep study/consultation consider getting this done. 4. Handout on neuropathic pain given to her to take home and review. 5. She will follow up with us in 6 months.6. Continue trazodone. Improving sleep can improve myofascial pain. 7. She sees a chiropractor and uses a TENS unit at home. 8. She is currently taking Cymbalta 60 twice/day.9. She is currently taking gabapentin 1200 mg TID.10. She takes Tramadol PRN 11. She sees pain management and get injections in her back PRN 12. Weight loss would be [id number]. She takes Celebrex PRN for joint pain. I refilled this today. 14. She takes Flexeril PRN for muscle pain/spasms. 15. There is not much else we have to offer for this. We could taper her off of gabapentin and try Lyrica. She has declined this in the past due to fear of weight gain. We discussed this again today. She would rather try Rheumate again. 16) Start Rheumate 1 BID. RX sent to [facility]. Samples given. Related to Fibromyalgia Do not take over-the counter anti-inflammatory medicines, such as ibuprofen or naproxen (Advil, Motrin, Aleve and others), as they may cause problems when combined with your prescription medications. In general, low dose daily aspirin for the treatment or prevention of heart disease or stroke is safe to take. Acetaminophen (Tylenol) is generally safe to take as directed for headaches, cramps or other aches and pains or fever reduction. Related to FPC use of NSAID Do not take over-the counter anti-inflammatory medicines, such as ibuprofen or naproxen (Advil, Motrin, Aleve and others), as they may cause problems when combined with your prescription medications. In general, low dose daily aspirin for the treatment or prevention of heart disease or stroke is safe to take. Acetaminophen (Tylenol) is generally safe to take as directed for headaches, cramps or other aches and pains or fever reduction. Related to termite helper use of NSAID 1. H & P Compatible with fibromyalgia. She feels like she is getting worse. 2. Encourage aerobic activity and sleep hygiene.3. If she has not had a sleep study/consultation consider getting this done. 4. Handout on neuropathic pain given to her to take home and review. 5. She will follow up with us in 6 months.6. Continue trazodone. Improving sleep can improve myofascial pain. 7. She sees a chiropractor and uses a TENS unit at home. 8. She is currently taking Cymbalta 60 twice/day.9. She is currently taking gabapentin 1200 mg TID.10. She takes Tramadol PRN 11. She sees pain management and get injections in her back PRN 12. Weight loss would be [id number]. She takes Celebrex PRN for joint pain. I refilled this today. 14. She takes Flexeril PRN for muscle pain/spasms. 15. There is not much else we have to offer for this. We could taper her off of gabapentin and try Lyrica. She has declined this in the past due to fear of weight gain. Related to Fibromyalgia kneesDr. Balthrop Related to Ost eoarthritis kneesDr. 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 In general, low dose daily aspirin for the treatment or prevention of heart disease or stroke is safe to take. Acetaminophen (Tylenol) is generally safe to take as directed for headaches, cramps or other aches and pains or fever reduction. Related to termite helper use of NSAID She has had some lef t knee pain. MRI did not show a meniscus or ligament tear. 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 They recommended a brace and some exercise/physical therapy. She does not think that this has helped. REcnet steroid inejction per Dr. Villarreal minimally helpful Related to Pain in left knee She has had to have injections in her SI joints/back in the past. She also has seen a spine surgeon. I advised her to follow up with her surgeon or bobbin painter regarding her back issues. Related to Back pain 1. H & P Compatible with fibromyalgia. She feels like she is getting worse. 2. Encourage aerobic activity and sleep hygiene.3. If she has not had a sleep study/consultation consider getting this done. 4. Handout on fibromyalgia given to her to take home and review. 5. She will follow up with us in 4-6 months.6. Continue trazodone. Improving sleep can improve myofascial pain. 7. She sees a chiropractor and uses a TENS unit at home. 8. She is currently taking Cymbalta 60 twice/day.9. She is currently taking gabapentin 1200 mg TID.10. She takes Tramadol PRN 11. She sees pain management and get injections in her back PRN 12. Weight loss would be [id number]. She takes Celebrex PRN for joint pain. I refilled this today. 14. She takes Flexeril PRN for muscle pain/spasms. 15. There is not much else we have to offer for this. We could taper her off of gabapentin and try Lyrica. She has declined this in the past due to fear of weight gain.16) Discussed tumeric, OK to take OTC. Gave her Rheumate samples to try. If she likes that and would like a prescription she can call. Related to Fibromyalgia She has had some lef t knee pain. MRI did not show a meniscus or ligament tear. 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 They recommended a brace and some exercise/physical therapy. She does not think that this has helped. I recommended she go back and see Dr. Villarreal. Related to Pain in left knee She has had to have injections in her SI joints/back in the past. She also has seen a spine surgeon. I advised her to follow up with her surgeon or bobbin painter regarding her back issues. Related to Back pain 1. H & P Compatible with fibromyalgia. She feels like she is getting worse. 2. Encourage aerobic activity and sleep hygiene.3. If she has not had a sleep study/consultation consider getting this done. 4. Handout on fibromyalgia given to her to take home and review. 5. She will follow up with us in 4-6 months.6. Continue trazodone. Improving sleep can improve myofascial pain. 7. She sees a chiropractor and uses a TENS unit at home. 8. She is currently taking Cymbalta 60 twice/day.9. She is currently taking gabapentin 1200 mg TID.10. She takes Tramadol PRN 11. She sees pain management and get injections in her back PRN 12. Weight loss would be [id number]. She takes Celebrex PRN for joint pain. I refilled this today. 14. She takes Flexeril PRN for muscle pain/spasms. 15. There is not much else I have to offer for this. We could taper her off of gabapentin and try Lyrica. I discussed this with her but she told me she does not want to try Lyrica because she is afraid it will make her gain weight. Related to Fibromyalgia Do not take over-the counter anti-inflammatory medicines, such as ibuprofen or naproxen (Advil, Motrin, Aleve and others), as they may cause problems when combined with your prescription medications. In general, low dose daily aspirin for the treatment or prevention of heart disease or stroke is safe to take. Acetaminophen (Tylenol) is generally safe to take as directed for headaches, cramps or other aches and pains or fever reduction. Related to FPC use of NSAID Dietary management e ducation, guidance, and counseling Related to Body mass index (BMI) 38.0-38.9, adult X-ray today. We may need an MRI. Related to Pain in left knee She has had to have injections in her SI joints/back in the past. She also has seen a spine surgeon. I advised her to follow up with her surgeon or bobbin painter regarding her back issues. Related to Back pain Do not take over-the counter anti-inflammatory medicines, such as ibuprofen or naproxen (Advil, Motrin, Aleve and others), as they may cause problems when combined with your prescription medications. In general, low dose daily aspirin for the treatment or prevention of heart disease or stroke is safe to take. Acetaminophen (Tylenol) is generally safe to take as directed for headaches, cramps or other aches and pains or fever reduction. Related to FPC use of NSAID 2. Encourage aerobic activity and sleep hygiene.3. If she has not had a sleep study/consultation consider getting this done. 4. Handout on fibromyalgia given to her to take home and review. 5. She will follow up with us in 4-6 months.6. Continue trazodone. Improving sleep can improve myofascial pain. 7. She sees a chiropractor and uses a TENS unit at home. 8. She is currently taking Cymbalta 60 twice/day.9. She is currently taking gabapentin 1200 mg TID.10. She takes Tramadol PRN 11. She sees pain management and get injections in her back PRN 12. Weight loss would be [id number]. She takes Celebrex PRN for joint pain. I refilled this today. 14. She takes Flexeril PRN for muscle pain/spasms. Related to Fibromyalgia 1. H & P consistent with this diagnosis.2. Encourage aerobic activity and sleep hygiene.3. If she has not had a sleep study/consultation consider getting this done.4. Handout on fibromyalgia given to her to take home and review.5. She will follow up with us in 4-6 months.6. I refilled her trazodone. Improving sleep can improve myofascial pain.7. She sees a chiropractor and uses a TENS unit at home.8. She is currently taking Cymbalta 60 twice/day.9. She is currently taking gabapentin 1200 mg TID.10. She takes Tramadol PRN11. She sees pain management and get injections in her back PRN12. Weight loss would be [id number]. She takes Celebrex PRN for joint pain. I refilled this today.14. She takes Flexeril PRN for muscle pain/spasms. I refilled this today Related to Fibromyalgia Do not take over-the counter anti-inflammatory medicines, such as ibuprofen or naproxen (Advil, Motrin, Aleve and others), as they may cause problems when combined with your prescription medications. In general, low dose daily aspirin for the treatment or prevention of heart disease or stroke is safe to take. Acetaminophen (Tylenol) is generally safe to take as directed for headaches, cramps or other aches and pains or fever reduction. We will call her PCP and get her most recent labs. Related to FPC use of NSAID Assessments Type Assessment Date assessment Generalized osteoarthritis impression * Medications/treatm ents tried included: Celebrex, Cymbalta, Baclofen, She saw pain management, Back injections, Rhizotomy procedures, physical therapy, chiropractor, Tramadol, hydrocodone, Flexeril , She saw [facility] rheumatology (Dr. Bojorquez), Skelaxin, gabapentin, She saw Dr. Weaver (Spine surgery), She has a TENS Unit, She saw Dr. Villarreal (ortho), knee replacement surgery, carpal tunnel surgery, Elavil, Trigger point injections, shoulder injections, she saw Dr. Lee (orthopaedic surgeon), She had a pain pump installed assessment Fibromyalgia impression * Medications/treatm ents tried included: Celebrex, Cymbalta, Baclofen, She saw pain management, Back injections, Rhizotomy procedures, physical therapy, chiropractor, Tramadol, hydrocodone, Flexeril , She saw [facility] rheumatology (Dr. Bojorquez), Skelaxin, gabapentin, She saw Dr. Weaver (Spine surgery), She has a TENS Unit, She saw Dr. Villarreal (ortho), knee replacement surgery, carpal tunnel surgery, Elavil, Trigger point injections, shoulder injections, she saw Dr. 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
--- NOTE | 2023-08-22 12:16 | P.PCN_ITS ---
Procedure Date: 08/22/23 Time: 11:49 Anesthesiologist:: Cheyanne Lee APRN Complications:: None Pre-procedure Diagnosis:: Degenerative disc disease of lumbar spine with lumbar radiculopathy symptoms Post-procedure Diagnosis:: Same Indications for Procedure:: Patient is a pleasant 63-year-old female who presents today for intrathecal increase and reprogram. Today she rates her pain a 8 out of 10. Patient denies any new trauma or injury. Patient is currently managed with morphine 2 mg/mL with a daily dose of 0.2354 mg/day. She denies any side effects from this medication. She is prescribed compounded cream from our office and gabapentin from an outside provider. Her Obed has been reviewed and is appropriate. Physical Exam: General: Alert and oriented x3, no acute distress, pleasant and cooperative Lungs: Respirations even and unlabored, symmetrical chest expansion Eyes: PERRL Musculoskeletal: Flexion and extension of lumbar [spine] somewhat guarded secondary to pain, [antalgic gait noted] Neurological: Speech clear, no gross sensory deficit Procedure Details:: Informed consent was obtained and the risk and benefits of the procedure were explained to the patient. Patient was taken to the procedure room where noninv asive monitoring was placed including noninvasive blood pressure cuff and pulse oximeter. Patient's pump was interrogated and was reprogrammed to morphine 0.2708 mg/day. The patient tolerated the procedure well with no complications. Plan and Disposition:: Patient tolerated her intrathecal increase with no complications and was discharged neurologically intact. Patient will return to clinic in 2 weeks for reevaluation of symptoms and plan of care. We will see the patient back in the clinic at the next intrathecal refill. Patient has been instructed to contact the clinic with any concerns before the next appointment. Dr. Ramos has reviewed this note and agrees with this plan of care. This note was dictated using voice recognition software and make contain errors or omissions. -- It Is medically necessary for this patient to continue to have their intrathecal pump refilled at regular intervals. This patient had an intrathecal pain pump implanted after meeting criteria of chronic intractable pain for greater than 3 months and failing conservative treatments. Patient has committed and been compliant to the treatment plan and all planned follow up care. Since implantation of the intrathecal pain pump, the patient has had decreased pain and been more functional. Oral medications have been reduced including intake of oral opioids. Patient continues to do well with intrathecal therapy with decrease in pain symptoms and increase in functional status. Stopping intrathecal medications can lead to life threatening withdrawal, seizures, cardiac arrest, severe pain, and possible . Pumps that are not refilled at regular intervals can be damages and cause and need for replacement. We continually titrate dose and concentration to optimize pain relief and function. We are limited in concentration for certain drugs to safely deliver medications through the pump and stay within the recommendations from the Polyanalgesic Consensus Committee Guidelines. Depending on dose and concentration these pumps may need to be refilled sooner than 3 months as we titrate.
[2023-08-22 12:23] VITALS: BP 145/89; PULSE 109; RESP 18; O2SAT 97; BMI 37.0
== END 2023-08-22 23:59 | disposition home or self-care (01) ==
PROVIDERS: PCP Family Medicine; Visit Provider Nurse Practitioner Family
DX: M51.16 Intervertebral disc disorders with radiculopathy, lumbar region (principal); Z97.8 Presence of other specified devices; Z45.1 Encounter for adjustment and management of infusion pump
CPT/HCPCS: 62368; 99213; G0463

== ENCOUNTER 2023-09-07 09:32 | Outpatient (POV) | payer MEDICARE, BC, SELFPAY ==
[2023-09-07 10:30] VITALS: BP 121/77; PULSE 84; RESP 18; O2SAT 98; BMI 37.0
--- NOTE | 2023-09-07 11:29 | A.OFFVIS_ITS ---
[facility] Pain Management SOAP Note Subjective:: This patient is a very pleasant 63-year-old female that comes our clinic today for follow-up visit regarding her intrathecal pain pump. She is currently being managed with intrathecal morphine 2 mg/mL at a daily dose of 0.2708 mg/day. She is requesting increase due to pain in the lumbar spine as well as bilateral hip and leg radicular symptoms at times. She describes the low back pain is constant, dull, aching. She rates the pain 7/10. I recommend 20% increase. Her new rate will be 0.3254 mg/day. I encouraged the patient to use her extra dosing as needed. Objective:: Patient is awake alert [place] x 3. No acute distress. Flex tension lumbar spine somewhat guarded secondary to pain. Deep tendon reflexes upper lower extremities normal. Motor strength upper lower extremities normal. There is no gross sensory deficit. Gait is normal. Assessment:: Degenerative disc lumbar spine multilevels. Lumbar radiculopathy. Plan:: Pump will be increased to 0.3254 mg/day. She will return to see us in 30 days for follow-up visit. [facility] Disclaimer: The information contained in this section may have been updated after the patient was seen, as this information can be updated by other users. Medical History Obesity Post hysterectomy menopause Surgical History H/O Spinal surgery History of appendectomy History of back surgery History of carpal tunnel surgery History of knee replacement Hx of cholecystectomy Previous section Family History Other Family history of cancer No significant family history Social History Smoking Status: Never smoker alcohol intake: never substance use type: denies use current occupational status: disabled Travel in the last 8 weeks: None household members: spouse housing: house current occupational exposures/hazards: No caffeine: Yes
== END 2023-09-07 23:59 | disposition home or self-care (01) ==
LOC: SC.PAIN 09:33
PROVIDERS: PCP Family Medicine; Visit Provider Nurse Anesthetist, Certified Registered
DX: M51.16 Intervertebral disc disorders with radiculopathy, lumbar region (principal); Z97.8 Presence of other specified devices; Z45.1 Encounter for adjustment and management of infusion pump
CPT/HCPCS: 62368; 99212; 99213; G0463

== ENCOUNTER 2023-10-02 09:55 | Day surgery (SDC) | payer MEDICARE, BC, SELFPAY ==
[2023-10-02 10:08] VITALS: BP 125/82; BP 136/73; PULSE 102; PULSE 106; PULSE 97; RESP 16; RESP 20; TEMP 36.5; O2SAT 99; BMI 36.3
--- NOTE | 2023-10-02 10:14 | EXP.PAIN.PRO ---
Procedure Date: 10/02/23 Time: 10:10 Anesthesiologist:: Juan R Mack CRNA Complications:: None Pre-procedure Diagnosis:: Degenerative disc lumbar spine multilevels. Lumbar radiculopathy. Post-procedure Diagnosis:: Same. Indications for Procedure:: Patient is a very pleasant 63-year-old female comes our clinic today for intrathecal pain pump interrogation and refill. Patient is currently being managed with morphine sulfate 2 mg/mL at a rate of 0.3254 mg/day. She reports doing very well with her current settings. She had a 20% increase at her last refill. She reports this made significant improvement in her overall pain. She is not reporting any side effects or complications. Procedure Details:: Details of the procedure explained to the patient. The patient taken procedure room placed in the sitting position. The area of the pump was cleansed using chlorhexidine's cleansing solution. The pump was interrogated. The pump was accessed with ease using a 22-gauge inch and half needle. 6 mL of solution was withdrawn discarded appropriate. The pump was then filled with 20 cc of solution containing morphine sulfate 2 mg/mL. Patient tolerated procedure without difficulty. There were no complications. Patient's pump rate will continue the same at 0.3254 mg/day. Plan and Disposition:: Patient was discharged without incident.
[2023-10-02 10:28] VITALS: BP 132/80; PULSE 99; RESP 18; O2SAT 99
== END 2023-10-02 10:28 | disposition home or self-care (01) ==
PROVIDERS: PCP Family Medicine; Visit Provider Nurse Anesthetist, Certified Registered
DX: M51.36 Other intervertebral disc degeneration, lumbar region (principal); M54.16 Radiculopathy, lumbar region
CPT/HCPCS: 95991

== ENCOUNTER 2023-11-12 09:31 | Outpatient (POV) | payer MEDICARE, BC, SELFPAY ==
--- NOTE | 2023-11-12 10:02 | P.PCN_ITS ---
Procedure Date: 11/12/23 Time: 10:02 Anesthesiologist:: Cheyanne Lee APRN Complications:: None Pre-procedure Diagnosis:: Degenerative disc disease of lumbar spine with lumbar radiculopathy symptoms Post-procedure Diagnosis:: Same Indications for Procedure:: Patient is a pleasant 63-year-old female who presents today for intrathecal adjustment and reprogram. Today she rates her pain a 4 out of 10. Patient denies any new trauma or injury. She does type that she is still getting improv ement with her intrathecal pump however feels like she could use some additional adjustment. She is also requesting refills of her compound cream. Patient is currently managed with morphine 2 mg/mL with a daily dose of 0.3254 mg/day. She denies any side effects from this medication. Her Obed has been reviewed and is appropriate. Physical Exam: General: Alert and oriented x3, no acute distress, pleasant and cooperative Lungs: Respirations even and unlabored, symmetrical chest expansion Eyes: PERRL Musculoskeletal: Flexion and extension of lumbar [spine] somewhat guarded secondary to pain, [antalgic gait noted] Neurological: Speech clear, no gross sensory deficit Procedure Details:: Informed consent was obtained and the risk and benefits of the procedure were explained to the patient. Patient was taken to the procedure room where noninvasive monitoring was placed including noninvasive blood pressure cuff and pulse oximeter. Patient's pump was interrogated and was reprogrammed to morphine 0.3907 mg/day. The patient tolerated the procedure well with no complications. Plan and Disposition:: Patient tolerated her intrathecal increase with no complications and was discharged neurologically intact. I will also refill the patient's compounded cream. Patient will return to clinic and 1 month for reevaluation of symptoms and plan of care. Patient has been instructed to contact the clinic with any concerns before the next appointment. Dr. Ramos has reviewed this note and agrees with this plan of care. This note was dictated using voice recognition software and make contain errors or omissions. -- It Is medically necessary for this patient to continue to have their intrathecal pump refilled at regular intervals. This patient had an intrathecal pain pump implanted after meeting criteria of chronic intractable pain for greater than 3 months and failing conservative treatments. Patient has committed and been compliant to the treatment plan and all planned follow up care. Since implantation of the intrathecal pain pump, the patient has had decreased pain and been more functional. Oral medications have been reduced including intake of oral opioids. Patient continues to do well with intrathecal therapy with decrease in pain symptoms and increase in functional status. Stopping intrathecal medications can lead to life threatening withdrawal, seizures, cardiac arrest, severe pain, and possible . Pumps that are not refilled at regular intervals can be damages and cause and need for replacement. We continually titrate dose and concentration to optimize pain relief and function. We are limited in concentration for certain drugs to safely deliver medications through the pump and stay within the recommendations from the Polyanalgesic Consensus Committee Guidelines. Depending on dose and concentration these pumps may need to be refilled sooner than 3 months as we titrate.
[2023-11-12 11:53] VITALS: BP 119/81; PULSE 91; RESP 16; O2SAT 97; BMI 36.8
== END 2023-11-12 23:59 | disposition home or self-care (01) ==
PROVIDERS: PCP Family Medicine; Visit Provider Nurse Practitioner Family
DX: M51.16 Intervertebral disc disorders with radiculopathy, lumbar region (principal)
CPT/HCPCS: 62368; 99213; G0463

== ENCOUNTER 2024-01-08 14:31 | Outpatient (CLI) | payer MEDICARE, BC, SELFPAY ==
--- NOTE | 2024-01-08 14:34 | MM_ITS ---
PROCEDURE INFORMATION: Exam: MG Bilateral Screening 3D Mammography Exam date and time: 01/08/2024 2:29 PM Age: 63 years old Clinical indication: Screening examination TECHNIQUE: Imaging protocol: Bilateral Screening tomosynthesis and 2D mammography including computer-aided detection (CAD) when performed. COMPARISON: 1. MG MM DIG SCREENING MAMM BI W/CAD 11/07/2021 10:54 AM 2. MG MM DIG SCREENING MAMM BI W/CAD 09/10/2020 1:35 PM FINDINGS: MAMMOGRAPHY: Breast composition: The breasts are almost entirely fatty. Mass: None. Architectural distortion: None. Calcifications: No suspicious calcifications. Asymmetric density: None. Skin thickening: None. Axillary adenopathy: None. IMPRESSION: No mammographic evidence of malignancy. Annual screening is recommended unless otherwise clinically indicated. ASSESSMENT: BI-RADS Category 1: Negative.
== END 2024-01-08 23:59 | disposition home or self-care (01) ==
LOC: RAD 14:31
PROVIDERS: PCP Family Medicine; Visit Provider Family Medicine
DX: Z12.31 Encounter for screening mammogram for malignant neoplasm of breast (principal)
CPT/HCPCS: 77063; 77067

== ENCOUNTER 2024-01-15 11:43 | Outpatient (CLI) | payer MEDICARE, BC, SELFPAY ==
--- NOTE | 2024-01-15 11:49 | XR_ITS ---
FINAL REPORT CLINICAL HISTORY: PAIN, right hip COMPARISON: None FINDINGS: RIGHT HIP Two views of the right hip demonstrate no acute fracture or dislocation. Mild degenerative changes present in the hips bilaterally. There is also mild to moderate degenerative change in the lumbar spine. The visualized bony structures are well aligned. No soft tissue abnormality is seen. IMPRESSION: Degenerative change in the hips and the lower lumbar spine as described, no acute bony abnormality. Reviewed, Interpreted and Dictated by Scooby Santos III, MD Transcribed by Halina Basilio Authenticated and [facility]
== END 2024-01-15 23:59 | disposition home or self-care (01) ==
LOC: RAD 11:45
PROVIDERS: PCP Family Medicine; Visit Provider Family Medicine
DX: M25.551 Pain in right hip (principal)
CPT/HCPCS: 73502

== ENCOUNTER 2024-02-19 09:44 | Day surgery (SDC) | payer MEDICARE, BC, SELFPAY ==
[2024-02-19 09:53] VITALS: BP 124/76; PULSE 106; RESP 16; TEMP 36.7; O2SAT 97; BMI 36.8
[2024-02-19 10:22] VITALS: BP 118/82; PULSE 95; RESP 18; O2SAT 99
[2024-02-19 10:25] VITALS: BP 118/82; PULSE 101; RESP 18; O2SAT 95
--- NOTE | 2024-02-19 10:35 | EXP.PAIN.PRO ---
Procedure Date: 02/19/24 Time: 10:20 Anesthesiologist:: Juan R Mack CRNA Complications:: None Pre-procedure Diagnosis:: Degenerative disc lumbar spine multilevels. Lumbar radiculopathy. DJD right hip. Right hip pain. Post-procedure Diagnosis:: Same. Indications for Procedure:: Patient is a pleasant 63-year-old female comes our clinic today for intrathecal pain pump interrogation refill. She is currently being managed with morphine sulfate 2 mg/mL at a rate of 0.3907 mg/day. She is doing very well with her current settings. With the exception of right groin pain due to some right hip arthritis. Patient has consulted with orthopedic surgery. No surgery was indicated at this time. However, patient unable to take intra-articular cortisone due to medical issues. I recommend we increase the pump rate today. This could help cover the right groin pain. Will increase her by 20%. Her new rate will be 0.4685 mg/day. Patient is awake alert [place] x 3. No acute distress. Flexion-extension lumbar spine somewhat guarded secondary to pain. Deep tendon reflexes upper and lower extremities normal. Motor strength upper lower extremities normal. There is no gross sensory deficit. Gait is normal. Procedure Details:: Details of procedure explained to the patient. The patient taken procedure room placed in sitting position. They are the pumps cleansed using chlorhexidine as a cleansing solution. The pump was interrogated. The pump was accessed with ease using 22-gauge inch and half needle. 6 mL of solution was withdrawn discarded appropriate. The pump was then filled with 20 cc of solution containing morphine sulfate 2 mg/mL. The pump rate will be increased to 0.4685 mg/day. Patient tolerated procedure without difficulty. No complications. Plan and Disposition:: Patient was discharged without incident.
[2024-02-19 10:36] VITALS: BP 148/79; PULSE 92; RESP 16; O2SAT 96
== END 2024-02-19 10:36 | disposition home or self-care (01) ==
LOC: SC.PAINP 09:45
PROVIDERS: PCP Family Medicine; Visit Provider Nurse Anesthetist, Certified Registered
DX: M51.16 Intervertebral disc disorders with radiculopathy, lumbar region (principal); M16.11 Unilateral primary osteoarthritis, right hip; M25.551 Pain in right hip
CPT/HCPCS: 62370

== ENCOUNTER 2024-02-24 14:15 | Emergency (ER) | payer MEDICARE, BC, SELFPAY ==
--- NOTE | 2024-02-24 14:21 | XR_ITS ---
PROCEDURE INFORMATION: Exam: XR Left Hand Exam date and time: 02/24/2024 2:44 PM Age: 63 years old Clinical indication: Injury or trauma; Blunt trauma (contusions or hematomas); Left; Injury details: Hit hand on object, numbness and tingling up arm now, 3 & 4 especially; Additional info: Pain TECHNIQUE: Imaging protocol: Radiologic exam of the left hand. Views: 3 or more views. COMPARISON: No relevant prior studies available. FINDINGS: Bones/joints: Osseous alignment is normal. No acute fracture. Moderate degenerative changes in the 3rd distal interphalangeal joint. No other significant arthritic change. Soft tissues: Mild soft tissue swelling of the distal 3rd finger. IMPRESSION: No acute fracture
--- NOTE | 2024-02-24 14:28 | EXP.UTC ---
Discharge Plan Disposition Patient Disposition: Home, Self-Care Condition: Good Prescriptions Prescriptions: No Action gabapentin 600 MG tablet 1,200 mg PO TID albuterol sulfate 90 MCG HFA aerosol inhaler 2 puff IH Q4-6H PRN (Reason: Shortness Of Breath) duloxetine 60 MG capsule,delayed release(DR/EC) 60 mg PO BID ropinirole 0.5 MG tablet 1 mg PO HS montelukast 10 MG tablet 10 mg PO PM celecoxib 200 MG capsule 200 mg PO BID fexofenadine 180 MG tablet 180 mg PO HS aspirin 81 MG tablet,delayed release (DR/EC) 81 mg PO DAILY pantoprazole 40 MG tablet,delayed release (DR/EC) 40 mg PO DAILY meclizine 12.5 MG tablet 12.5 mg PO NEEDED PRN (Reason: dizzeness) zolmitriptan [Zomig] 5 MG tablet 5 mg PO ONCE Referrals Follow up/Referrals: Afua Hurley [Primary Care Provider] - See instructions Austin Lee DO [Staff Physician] - See instructions Activity Restrictions/Add. Instructions Additional Instructions/Restrictions: Rest the extremity, Elevate the extremity as tolerated while you are resting. Take ibuprofen or tylenol for pain. Follow up with Dr. Lee (orthopedics). I put in a referral but you need to call his office and schedule an appointment. Follow up with your regular doctor. GO TO THE ER FOR ANY WORSENING SYMPTOMS Clinical Impressions Clinical Impression: Left hand pain Instructions Patient Instructions: DI for Hand Pain Print Language Print Language: Wolof Discharge ED Provider: Sotero Lee [facility] General Stated complaint: AO-02/23 pain and swelling L hand Time Seen by Provider: 02/24/24 14:28 Related Data Home Medications ?Medication ?Instructions ?Recorded ?Confirmed albuterol sulfate 90 mcg/actuation 2 puff inhalation Q4-6H PRN 10/07/17 02/19/24 aerosol inhaler Shortness Of Breath duloxetine 60 mg capsule,delayed 60 mg PO BID MOOD 10/07/17 02/19/24 release gabapentin 600 mg tablet 1,200 mg PO TID NEUROPATHY 10/07/17 02/24/24 ropinirole 0.5 mg tablet 1 mg PO HS Restless leg 10/08/17 02/24/24 meclizine 12.5 mg tablet 12.5 mg PO NEEDED PRN dizzeness 05/31/18 02/24/24 zolmitriptan 5 mg tablet (Zomig) 5 mg PO ONCE migraines 05/31/18 02/24/24 montelukast 10 mg tablet 10 mg PO PM allergies 08/02/18 02/24/24 celecoxib 200 mg capsule 200 mg PO BID Pain 06/22/20 02/19/24 aspirin 81 mg tablet,delayed 81 mg PO DAILY heart health 03/07/21 02/19/24 release fexofenadine 180 mg tablet 180 mg PO HS allergies 03/07/21 02/19/24 pantoprazole 40 mg tablet,delayed 40 mg PO DAILY GERD 03/07/21 02/24/24 release Allergies Allergy/AdvReac Type Severity Reaction Status Date / Time morphine Allergy Mild Other Verified 06/26/23 10:10 [facility] Disclaimer: The information contained in this section may have been updated after the patient was seen, as this information can be updated by other users. Medical History Obesity Post hysterectomy menopause Surgical History H/O Spinal surgery History of appendectomy History of back surgery History of carpal tunnel surgery History of knee replacement Hx of cholecystectomy Previous section Family History Other Family history of cancer No significant family history Social History Smoking Status: Never smoker alcohol intake: never substance use type: denies use current occupational status: unemployed Travel in the last 8 weeks: None household members: spouse housing: house current occupational exposures/hazards: No caffeine: Yes ROS Obtained: Yes All systems reviewed & no additional complaints except as documented Constitutional Constitutional: Denies chills and Denies fever(s) Eyes Eyes: Denies eye discharge ENT Ears, Nose, Mouth, and Throat: Denies dizziness, Denies otalgia and Denies sore throat Cardiovascular Cardiovascular: Denies chest pain Respiratory Respiratory: Denies shortness of breath, Denies chest congestion, Denies cough, Denies stridor and Denies wheezing Gastrointestinal Gastrointestingal: Denies nausea or vomiting Musculoskeletal Musculoskeletal: Reports as per HPI Integumentary/Breasts Skin/Breast: Denies redness, Denies rash and Denies wounds Neurologic Neurologic: Denies dizziness and Denies paresthesias Allergic/Immunologic Allergic/Immunologic: Denies wheezing Physical Exam General General appearance: alert and in no apparent distress Head Head exam: atraumatic, normocephalic and normal inspection Eye Eye exam: Present normal appearance, PERRL and EOMI ENT ENT exam: Present normal exam, normal oropharynx, mucous membranes moist, TM's normal bilaterally and normal external ear exam Neck Neck exam: Present normal inspection, full ROM and trachea midline; Absent meningismus or lymphadenopathy Chest Chest inspection: Present normal inspection and symmetric chest wall rise; Absent tenderness Respiratory Respiratory exam: Present normal lung sounds bilaterally; Absent respiratory distress Cardiovascular Cardiovascular exam: Present regular rate and normal rhythm; Absent JVD Abdominal Exam Abdominal exam: Present soft and normal bowel sounds; Absent distention, tenderness or guarding Extremities Exam Extremities exam: Present normal capillary refill; Absent calf tenderness Expanded Upper Extremity Exam Left: Forearm/Wrist exam: Present normal inspection and full ROM; Absent tenderness, swelling, abrasion, laceration, ecchymosis, deformity, crepitus, dislocation, erythema, tenderness over anatomical snuff box or pain with axial thumb loading Hand exam: Present full ROM, tenderness and swelling; Absent abrasion, laceration, skin avulsion, ecchymosis, deformity, crepitus, dislocation, erythema, amputation, nail avulsion or subungual hematoma Neuromotor exam: Normal wrist extension, thumb opposition, thumb IP flexion, thumb adduction and fingers 2-5 abduction Neurosensory exam: Normal radial nerve, ulnar nerve and median nerve Vascular exam: Normal capillary refill, radial pulse and ulnar pulse Back Exam Back exam: Present normal inspection; Absent tenderness Neurological Exam Neurological exam: Present alert and oriented X3 Psychiatric Psychiatric exam: Present normal affect and normal mood Skin Skin exam: Present warm, dry, intact and normal color; Absent rash or erythema Lymphatic Lymphatic Findings: no adenopathy Medical Decision Making Medical Records Medical records reviewed: No I reviewed the patient's medical records. Screening: Per USPSTF and CDC recommendations, given the prevalence of disease in our region, it is our hospital?s policy to screen for HIV and viral Hepatitis for all patients aged 18 and over and those with ongoing risk factors. Obed Inquiry Pt receiving controlled substance: No Orders (Tests/Meds): ORDERS Category Date Time Status Hand XR left minimum 3 views [XR hand LT min 3V] Stat Exams 02/24/24 14:21 Ordered Procedures Risk/Benefits of Procedure(s) Were Explained: Yes Orthopedic Splinting/Casting Injury #1: Side: left Upper Extremity Injury Location: hand Upper Extremity Immobilizer: volar splint and applied by nurse/dr roman Post Cast/Splinting Neuro Status: intact and no change Post Cast/Splinting Vasc Status: intact and no change
[2024-02-24 14:32] VITALS: BP 111/66; PULSE 88; RESP 18; TEMP 36.8; O2SAT 96; BMI 36.8
--- OUTSIDE RECORDS SUMMARY | 2024-02-24 15:58 | XMS_ITS | Encounter Summary ---
[facility] Address [address] [place] [address] Care Team Providers Care Hospital Product Specialist Name Role Phone Afua Hurley DO Primary Care Provider [phone] Reason for Referral * Diagnostic Imaging (Routine) - Closed Specialty Diagnoses / Procedures [facility] To Contact Radiology Diagnoses Ependymoma Procedures MRI Thoracic Spine With & Without Contrast Artemio Hudson MD [address] [place] [address] Phone: tel: fax: [facility] MRI [address] [place] [id number] Phone: tel: Referral ID Status Reason Start Date Expiration Date Visits Re quested Visits Authorized [id number] Closed 12/06/2021 12/06/2022 1 1 Reason for Visit * Diagnostic Imaging (Routine) - Closed Specialty Diagnoses / Procedures [facility] Referred To Contact Radiology Diagnoses Ependymoma Procedures MRI Thoracic Spine With & Without Contrast Artemio Hudson MD [address] [place] [address] Phone: tel: fax: [facility] MRI [address] [place] [address] Phone: tel: Referral ID Status Reason Start Date Expiration Date Visits Re quested Visits Authorized [id number] Closed 12/06/2021 12/06/2022 1 1 Encounter Details Date Type Department Care Team (Late st Contact Info) Description 12/06/2022 9:52 AM EDT - 12/06/2022 11:59 PM EDT Hospital Encounter [facility] MRI [address] [place] [phone] Artemio Hudson MD [address] [facility] [address] [place] [address] Ependymoma Discharge Disposition: Home or Self Care Social History Tobacco Use Types Packs/Day Years Used Date Smoking Tobacco: Former Cigarettes 1 8 1 978 - 1985 Smokeless Tobacco: Never Alcohol Use Standard Drinks/Week Comments No 0 (1 standard drink = 0.6 oz pur e alcohol) Comments No Sex and Gender Information Value Date Recorded Sex Assigned at Not on file Legal Sex Female 7:49 AM EDT Gender Identity Not on file Sexual Orientation Not on file documented as of this encounter Medications at Time of Discharge albuterol (PROVENTIL HFA;VENTOLIN HFA) 108 (90 BASE) MCG/ACT inhaler Inhale 2 puffs As Needed for Wheezing. amitriptyline (ELAVIL) 10 MG tablet Take 1 tablet by mouth Every Evening. 11/08/2020 cyanocobalamin 1000 MCG/ML injection INJECT 1 ML INTRAMUSCULARLY ONCE EVERY MONTH 08/10/2020 fexofenadine (YAEL) 180 MG tablet Take 1 tablet by mouth every night at bedtime. 09/16/2020 fluticasone (FLONASE) 50 MCG/ACT nasal spray Administer 2 sprays into the nostril(s) as directed by provider Daily. Administer 2 sprays in each nostril for each dose. losartan (COZAAR) 25 MG tablet Take 1 tablet by mouth Daily. 11/05/2020 montelukast (SINGULAIR) 10 MG tablet Take 1 tablet by mouth Every Night. pantoprazole (PROTONIX) 40 MG EC tablet Take 1 tablet by mouth 2 (Two) Times a Day. rOPINIRole (REQUIP) 5 MG tablet Take 1 tablet by mouth Every Night. Take 1 hour before bedtime. spironolactone (ALDACTONE) 25 MG tablet Take 1 tablet by mouth Every Morning. 11/08/2020 vitamin D3 125 MCG (5000 UT) capsule capsule Take 1 capsule by mouth Daily. ZOLMitriptan (ZOMIG) 5 MG tablet Take 1 tablet by mouth 1 (One) Time As Needed for Migraine. celecoxib (CeleBREX) 200 MG capsule Take 1 capsule by mouth 2 (Two) Times a Day. 09/05/19 24 cyclobenzaprine (FLEXERIL) 10 MG tablet Take 5 mg by mouth every night. 12/08/19 23 DULoxetine (CYMBALTA) 60 MG capsule Take 1 capsule by mouth 2 (Two) Times a Day. 09/05/19 24 gabapentin (NEURONTIN) 600 MG tablet Take 1 tablet by mouth 3 (Three) Times a Day. Take 2 tablets by mouth three times a day 09/28/2015 09/05/19 24 hydrocortisone (CORTEF) 10 MG tablet Take 10 mg by mouth Daily. 1 tablet in the AM and 1/2 tablet in the PM. 12/08/19 23 meclizine (ANTIVERT) 12.5 MG tablet Take 1 tablet by mouth 3 (Three) Times a Day As Needed for Dizziness. 01/23/20 24 traMADol (ULTRAM) 50 MG tablet Take 50 mg by mouth 3 (three) times a day as needed for moderate pain (4-6). 0 23 documented as of this encounter Plan of Treatment Upcoming Encounters Date Type Department Care Team (Late st Contact Info) Description 03/10/2024 11:30 AM EST Office Visit [facility] RHEUMATOLOGY [address] [facility] [address] [place] [phone] Ivan Alvarado DO [address] [facility] [address] [place] [address] 04/24/2024 10:50 AM EST Office Visit [facility] ORTHOPEDICS & SPORTS MEDICINE [address] [place] [address] [address] [place] [phone] Solomon Aguilar MD [address] [facility] [address] [place] [address] documented as of this encounter Procedures Procedure Name Priority Date/Time Associated Diagnosis Comments MRI THORACIC SPINE W WO CONTRAST Routine 12/06/2022 12:00 PM EDT Ependymoma documented in this encounter Results * MRI Thoracic Spine With & Without Contrast (12/06/2022 12:00 PM EDT) Anatomical Region Laterality Modality Spine, T-spine N/A Magnetic Resonan ce 12/06/2022 3:12 PM EDT Impressions 12/06/2022 3:22 PM EDT Impression: Stable postoperative changes from prior T5 and T6 laminectomy for resection of ependymoma. Some minimal tethering and myelomalacia stable without new signal abnormality or abnormal enhancement concerning for residual or recurrent tumor. Electronically Signed: Cuco Brown MD 12/06/2022 3:22 PM EDT Workstation ID: [id number] Narrative 12/06/2022 3:22 PM EDT MRI THORACIC SPINE W WO CONTRAST Date of Exam: 12/06/2022 10:59 AM EDT Indication: EPENDYMOMA. Comparison: 12/06/2021. Technique: ??Routine multiplanar/multisequence sequence images of the thoracic spine were obtained before and after the uneventful administration of 20 mL Multihance. ?? Findings: Redemonstrated postoperative changes from prior T5 and T6 laminectomy for resection of reported ependymoma. Marrow signal remains preserved throughout without acute osseous finding present otherwise. Alignment remains essentially anatomic without new listhesis or subluxation. There is some unchanged mild tethering of the dorsal aspect of the spinal cord at the operative site, with some unchanged small areas of T2 hyperintensity seen along the dorsal aspect of the cord consistent with mild myelomalacia. There is otherwise no new focal cord signal abnormality or abnormal enhancement present concerning for recurrent or significant residual tumor. No additional focal cord signal abnormality is present. The spinal canal and neural foramina are patent throughout, without evidence of significant spondylosis. The paraspinal soft tissues demonstrate no acute or suspicious findings. Procedure Note Solomon Brown MD - 12/06/2022 MRI THORACIC SPINE W WO CONTRAST Date of Exam: 12/06/2022 10:59 AM EDT Indication: EPENDYMOMA. Comparison: 12/06/2021. Technique: Routine multiplanar/multisequence sequence images of thethoracic spine were obtained before and after the uneventfuladministration of 20 mL Multihance. Findings: Redemonstrated postoperative changes from prior T5 and T6 laminectomy forresection of reported ependymoma. Marrow signal remains preservedthroughout without acute osseous finding present otherwise. Alignmentremains essentially anatomic without new listhesis or subluxation. There is some unchanged mild tethering of thedorsal aspect of the spinal cord at the operative site, with someunchanged small areas of T2 hyperintensity seen along the dorsal aspect ofthe cord consistent with mild myelomalacia. There is otherwise no new focal cord signal abnormality orabnormal enhancement present concerning for recurrent or significantresidual tumor. No additional focal cord signal abnormality is present.The spinal canal and neural foramina are patent throughout, without evidence of significant spondylosis. Theparaspinal soft tissues demonstrate no acute or suspicious findings. IMPRESSION: Impression: Stable postoperative changes from prior T5 and T6 laminectomy forresection of ependymoma. Some minimal tethering and myelomalacia stablewithout new signal abnormality or abnormal enhancement concerning forresidual or recurrent tumor. Electronically Signed: Cuco Brown MD 12/06/2022 3:22 PM EDT Workstation ID: [id number] Artemio Hudson MD [facility] [place] ORDERABLES Final Resu lt documented in this encounter Visit Diagnoses Diagnosis Ependymoma Malignant neoplasm of brain, unspecified site documented in this encounter Administered Medications Inactive Administered Medications - up to 3 most recent administrations Medication Order MAR Action Action Date Dose Rate Site gadobenate dimeglumine (MULTIHANCE) injection 20 mL 20 mL, Intravenous, Once in Imaging, On Sun12/06/22 at 1147, For 1 dose, Vesicant; admin as rapid bolus; flush with 5 mL NS after admin or 20 mL for renal or aortoiliofemoral vasculature Given 12/06/2022 12:00 PM EDT 20 mL documented in this encounter Care Teams Hospital Product Specialist Relationship Specialty Start Date End Date Afua Hurley DO [facility] [place] [id number] PCP - General Family Medicine 10/14/15 documented as of this encounter
--- OUTSIDE RECORDS SUMMARY | 2024-02-24 15:58 | XMS_ITS | Encounter Summary ---
[facility] [address] [place] [id number] Care Team Providers Care Aviation Program Manager Name Role Phone Afua Hurley Primary Care Provider [phone] Reason for Visit * Reason Comments Spinal cord tumor follow up Encounter Details Date Type Department Care Team (Late st Contact Info) Description 11/10/2020 9:40 AM EDT Office Visit [facility] NEUROSURGERY [address] [phone] Artemio Hudosn MD [address] [place] [address] Spinal cord tumor (Primary Dx) Social History Tobacco Use Types Packs/Day Years Used Date Smoking Tobacco: Former Cigarettes 1 8 1 978 - 1986 Smokeless Tobacco: Never Alcohol Use Standard Drinks/Week Comments No 0 (1 standard drink = 0.6 oz pur e alcohol) Comments No Sex and Gender Information Value Date Recorded Sex Assigned at Not on file Legal Sex Female 7:49 AM EDT Gender Identity Not on file Sexual Orientation Not on file documented as of this encounter Last Filed Vital Signs Vital Sign Reading Time Taken Comments Blood Pressure - - Pulse - - Temperature 36.3 ??C (97.3 ??F) 11/10/2020 9:44 AM ED T Respiratory Rate - - Oxygen Saturation - - Inhaled Oxygen Concentration - - Weight 108 kg (237 lb 6.4 oz) 11/10/2020 9:44 AM EDT Height 162.6 cm (5' 4.02 ) 11/10/2020 9:44 AM ED T Body Mass Index 40.73 11/10/2020 9:44 AM EDT documented in this encounter Progress Notes * Artemio Hudson MD - 11/10/2020 9:40 AM EDT Patient: Sue Cardona : 1960 Primary Care Provider: Afua Hurley DO Requesting Provider: As above History Chief Complaint: Mid back pain. History of Present Illness: Ms. 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 On 12/02/2015 she underwent T5 and T6 laminectomies to resect the intramedullary spinal cord tumor. 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 Gross total resection was accomplished. She did of just a bit of CSF leakage from her incision upon follow-up. Sutures were left in a bit longer. She's had no further difficulties in that regard.?She did not undergo adjuvant treatment of any sort. ??She continues to have sensory alterationfrom the groin down into her feet. She really does not have chest or abdominal symptoms. She has had a left knee replacement and bilateral foot surgery since I saw her last. Review of Systems Constitutional: Negative for activity change, appetite change, chills, diaphoresis, fatigue, fever and unexpected weight change. HENT: Negative for congestion, dental problem, drooling, ear discharge, ear pain, facial swelling, hearing loss, mouth sores, nosebleeds, postnasal drip, rhinorrhea, sinus pressure, sinus pain, sneezing, sore throat, tinnitus, trouble swallowing and voice change. Eyes: Negative for photophobia, pain, discharge, redness, itching and visual disturbance. Respiratory: Negative for apnea, cough, choking, chest tightness, shortness of breath, wheezing andstridor. Cardiovascular: Negative for chest pain, palpitations and leg swelling. Gastrointestinal: Negative for abdominal distention, abdominal pain, anal bleeding, blood in stool,constipation, diarrhea, nausea, rectal pain and vomiting. Endocrine: Negative for cold intolerance, heat intolerance, polydipsia, polyphagia and polyuria. Genitourinary: Negative for decreased urine volume, difficulty urinating, dysuria, enuresis, flank pain, frequency, genital sores, hematuria and urgency. Musculoskeletal: Positive for back pain. Negative for arthralgias, gait problem, joint swelling, myalgias, neck pain and neck stiffness. Skin: Negative for color change, pallor, rash and wound. Allergic/Immunologic: Positive for environmental allergies. Negative for food allergies and immunocompromised state. Neurological: Positive for weakness, numbness and headaches. Negative for dizziness, tremors, seizures, syncope, facial asymmetry, speech difficulty and light-headedness. Hematological: Negative for adenopathy. Bruises/bleeds easily. Psychiatric/Behavioral: Negative for agitation, behavioral problems, confusion, decreased concentration, dysphoric mood, hallucinations, self-injury, sleep disturbance and suicidal ideas. The patientis not nervous/anxious and is not hyperactive. All other systems reviewed and are negative. The patient's past medical history, past surgical history, family history, and social history have been reviewed at length in the electronic medical record. Physical Exam: Temp 97.3 ??F (36.3 ??C) Ht 162.6 cm (64.02 ) Wt 108 kg (237 lb 6.4 oz) BMI 40.73 kg/m?? Patient is pleasant and cooperative. She is in good spirits. Sensation is slightly altered globally in her legs. There is no sensory change in her abdomen or chest to light touch testing. Reflexes are trace throughout. Medical Decision Making Data Review: (All imaging studies were personally reviewed unless stated otherwise) Follow-up MRI of the thoracic spine dated 11/05/2020 is compared to a study from May 2019. Postsurgical changes are noted in the mid thoracic spine. I do not see evidence of recurrent tumor. 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 Treatment Options: Ms. Cardona is doing well. She will follow-up in 1 year with a new MRI of the thoracic spine with and without gadolinium. Diagnosis Plan 1. Spinal cord tumor MRI Thoracic Spine With & Without Contrast Scribed for Artemio Hudson MD by KYAW [place] 11/10/2020 10:10 EDT I, Dr. Hudson, personally performed the services described in the documentation, as scribed in my presence, and it is both accurate and complete. documented in this encounter Plan of Treatment Upcoming Encounters Date Type Department Care Team (Late st Contact Info) Description 03/10/2024 11:30 AM EST Office Visit [facility] RHEUMATOLOGY [address] [facility] [address] [place] [phone] Ivan Alvarado DO [address] [facility] [address] [place], [place] [id number] 04/24/2024 10:50 AM EST Office Visit 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
--- OUTSIDE RECORDS SUMMARY | 2024-02-24 15:58 | XMS_ITS | Encounter Summary ---
[facility] Address [address] [place] [id number] Care Team Providers Care Stripper Black And White Name Role Phone Afua Hurleygh Primary Care Provider [phone] Reason for Referral * Diagnostic Imaging (Routine) - Closed Specialty Diagnoses / Procedures Referred By Contac t Referred To Contact Radiology Diagnoses Ependymoma Procedures MRI Thoracic Spine With & Without Contrast Artemio Hudson MD [address] [place] [address] Phone: tel: fax: [facility] MRI [address] [place] [address] Phone: tel: Referral ID Status Reason Start Date Expiration Date Visits Re quested Visits Authorized [id number] Closed 12/06/2021 12/06/2022 1 1 Reason for Visit * Reason Comments Spinal cord tumor 1 year follow-up. Encounter Details Date Type Department Care Team (Late st Contact Info) Description 12/06/2021 10:20 AM EDT Office Visit [facility] NEUROSURGERY [address] [id number] Artemio Hudson MD [address] [place] [address] Ependymoma (Primary Dx) Social History Tobacco Use Types [...] Pressure - - Pulse - - Temperature 36.2 ??C (97.1 ??F) 12/06/2021 10:33 AM E DT Respiratory Rate - - Oxygen Saturation - - Inhaled Oxygen Concentration - - Weight 118 kg (260 lb 12.8 oz) 12/06/2021 10:33 AM EDT Height 162.6 cm (5' 4.02 ) 12/06/2021 10:33 AM E DT Body Mass Index 44.74 12/06/2021 10:33 AM EDT documented in this encounter Progress Notes * Artemio Hudson MD - 12/06/2021 10:20 AM EDT Patient: Sue Cardona : 1960 Primary Care Provider: Afua Hurley DO Requesting Provider: As above History Chief Complaint: Mid back pain. History of Present Illness: Ms. Mcdonald is a 61-year-old woman who presented with increasing mid back [...] sensory alterationfrom the groin down into her feet.?? She really does not have chest or abdominal symptoms. 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 Review of Systems Constitutional: Positive for fatigue. Negative for activity change, appetite change, chills, diaphoresis, fever and unexpected weight change. HENT: Negative for congestion, dental problem, drooling, ear discharge, ear pain, facial swelling, hearing loss, mouth sores, nosebleeds, postnasal drip, rhinorrhea, sinus pressure, sinus pain, sneezing, sore throat, tinnitus, trouble swallowing and voice change. Eyes: Negative for photophobia, pain, discharge, redness, itching and visual disturbance. Respiratory: Positive for wheezing. Negative for apnea, cough, choking, chest tightness, shortness of breath and stridor. Cardiovascular: Negative for chest pain, palpitations and leg swelling. Gastrointestinal: Negative for abdominal distention, abdominal pain, anal bleeding, blood in stool,constipation, diarrhea, nausea, rectal pain and vomiting. Endocrine: Negative for cold intolerance, heat intolerance, polydipsia, polyphagia and polyuria. Genitourinary: Negative for decreased urine volume, difficulty urinating, dysuria, enuresis, flank pain, frequency, genital sores, hematuria and urgency. Musculoskeletal: Positive for back pain and neck stiffness. Negative for arthralgias, gait problem,joint swelling, myalgias and neck pain. Skin: Negative for color change, pallor, rash and wound. Allergic/Immunologic: Positive for environmental allergies. Negative for food allergies and immunocompromised state. Neurological: Negative for dizziness, tremors, seizures, syncope, facial asymmetry, speech difficulty, weakness, light-headedness, numbness and headaches. Hematological: Negative for adenopathy. Bruises/bleeds easily. Psychiatric/Behavioral: [...] the electronic medical record. Physical Exam: Temp 97.1 ??F (36.2 ??C) Ht 162.6 cm (64.02 ) Wt 118 kg (260 lb 12.8 oz) BMI 44.74 kg/m?? Reflexes are difficult to elicit throughout. Her gait is normal. Motor function and tone are normal in her lower extremities. Medical Decision Making Data Review: (All imaging studies were personally reviewed unless stated otherwise) Follow-up MRI of the thoracic spine with and without gadolinium from today is compared to a study from 11/05/2020. Postsurgical changes are noted in the mid thoracic spine. I do not see evidence of residual or recurrent tumor. Diagnosis: Thoracic ependymoma status post resection. Treatment Options: Ms. Cardona is doing well. She will follow-up in 1 year with a new MRI of the thoracic spine with and without gadolinium. If that is in order then we will start to space out the serial imaging. Diagnosis Plan 1. Ependymoma (HCC) Scribed for Artemio Hudson MD by Marcella Mariscal CMA on 12/06/2021 10:58 EDT I, Dr. Hudson, personally performed the services described in the documentation, as scribed in my presence, and it is both accurate and complete. documented in this encounter Plan of Treatment Upcoming Encounters Date Type Department Care Team (Late st Contact Info) Description 03/10/2024 11:30 AM EST Office Visit [facility] RHEUMATOLOGY [address] [facility] [address] [place] [phone] Ivan Alvarado DO [address] [facility] [address] [place] [address] 04/24/2024 10:50 AM EST Office Visit [facility] ORTHOPEDICS & SPORTS MEDICINE [address] [facility] [address] [place] [address] Solomon Aguilar MD [address] [facility] [address] [place] [address] documented as of this encounter Results * MRI Thoracic Spine [...] MD 12/06/2022 3:22 PM EDT Workstation ID: [id number] Satnam 12/06/2022 3:22 PM EDT MRI THORACIC SPINE [...] MD 12/06/2022 3:22 PM EDT Workstation ID: [id number] us Artemio Hudson MD IMG MRI ORDERABLES Final Resu lt documented in this encounter Visit Diagnoses Diagnosis Ependymoma- Primary Malignant neoplasm of brain, unspecified site Ependymoma Malignant neoplasm of brain, unspecified site documented in this encounter Care Teams Stripper Black And White Relationship Specialty Start Date End Date Afua Hurley DO [facility] [place] [address] PCP - General Family Medicine 10/14/15 documented as of this encounter
--- OUTSIDE RECORDS SUMMARY | 2024-02-24 15:58 | XMS_ITS | Encounter Summary ---
[facility] Address [address] [place] [id number] Care Team Providers Care Propulsion Generator Repairer Name Role Phone Afua Hurley Primary Care Provider [phone] Reason for Visit * Reason Onset Date Comments ROLO-APPT. 11/01/2021 Encounter Details Date Type Department Care Team (Late st Contact Info) Description 11/01/2021 Telephone [facility] NEUROSURGERY [address] [phone] Artemio Hudson MD [address] [place] [address] ROLO-APPT. Social History Tobacco Use Types Packs/Day Years [...] on file documented as of this encounter Miscellaneous Notes * Telephone Encounter - Rosana Ortega - 11/01/2021 1:37 PM EDT Did you request this? * Telephone Encounter - Maura Lu RegSched Rep - 11/01/2021 1:02 PM EDT Caller: Tad Cardonaronna Smyth Relationship: Self Best call back number:[phone] What is the best time to reach you:ANYTIME Who are you requesting to speak with (clinical staff, provider, specific staff member):CLINICAL STAFF Do you know the name of the person who called:NA What was the call regarding:PT CALLED BACK AND STATES THAT SHE HAD SPOKE WITH SOMEONE IN OUR OFFICEABOUT HER MRI ORDER AND APPT. WITH -PT STATES SHE WAS WAITING FOR A CALL BACK FROM OFFICE TO SET BOTH OF THOSE UP-ORDER IS IN CHART BUT DID NOT SEE ABOUT APPT. PLEASE CONTACT PT BACK FOR BOTH APPTS. THANK YOU! Do you require a callback:YES PLEASE documented in this encounter Plan of Treatment Upcoming Encounters Date Type Department Care Team (Late st Contact Info) Description 03/10/2024 11:30 AM EST Office Visit [facility] RHEUMATOLOGY [address] [facility] [address] [place] [phone] Ivan Alvarado DO [address] [facility] [address] [place] [address] 04/24/2024 10:50 AM EST Office Visit [facility] ORTHOPEDICS & SPORTS MEDICINE [address] [facility] [address] [place] [phone] Solomon Aguilar MD [address] [facility] [address] [place] [address] documented as of this encounter Visit Diagnoses Not on filedocumented in this encounter Care Teams Propulsion Generator Repairer Relationship Specialty Start Date End Date Afua Hurley DO [address] [place] [address] PCP - General Family Medicine 10/14/15 documented as of this encounter
--- OUTSIDE RECORDS SUMMARY | 2024-02-24 15:58 | XMS_ITS | Encounter Summary ---
[facility] Address [address] [place] [address] Care Team Providers Care Production Control Clerk Name Role Phone Afua Hurley DO Primary Care Provider [phone] [phone] Reason for Referral * Diagnostic Imaging (Routine) - Closed Specialty Diagnoses / Procedures Referred By Contact Referred To Contact Orthopedic Surgery Diagnoses Right hip pain Procedures US Guided Injection Solomon Aguilar MD [address] [place] [address] Phone: tel: fax: [facility] [address] [place] [phone] Phone: tel: fax: Referral ID Status Reason Start Date Expiration Date Visits Re quested Visits Authorized [id number] Closed 01/23/2024 01/22/2025 1 1 Reason for Visit * Reason Comments Pain * Consultation (Routine) - Closed Specialty Diagnoses / Procedures Referred By Contac t Referred To Contact Orthopedic Surgery Diagnoses Arthritis of both hips Arthritis of back Afua Hurley DO [address] [place] [address] Phone: tel: fax: [facility] [address] [place] [address] Phone: tel: fax: Referral ID Status Reason Start Date Expiration Date Visits Re quested Visits Authorized [id number] Closed 01/17/2024 01/16/2025 1 1 Encounter Details Date Type Department Care Team (Late st Contact Info) Description 01/23/2024 10:50 AM EDT Office Visit [facility] [address] [facility] [address] [place] [address] Solomon Aguilar MD [address] [facility] [address] [place] [address] Right hip pain (Primary Dx); Primary osteoarthritis of right hip Social History Tobacco Use Types Packs/Day Years Used Date Smoking Tobacco: Former Cigarettes 1 5 0 04/09/1980 - 04/09/1985 Smokeless Tobacco: Never Tobacco Cessation:Counseling Given: Not Answered Alcohol Use Standard Drinks/Week Comments No 0 (1 standard drink = 0.6 oz pur e alcohol) Abuse Screen Answer Date Recorded Unsafe at Home or Work/School Not on file Feels Threatened by Someone? Not on file 02/2023 Does Anyone Keep You from Co ntacting Others or Doint Things Outside the Home? Not on file 01/17/2023 Physical Sign of Abuse Present Not on file 1 Housing Stability Answer Date Recorded Current Living Arrangements Not on file 01/07 Potentially Unsafe Housing Conditions Not on daylin e 01/17/2023 Family and Community Support Answer Arnulfo e Recorded Help with Day-to-Day Activities Not on file 01/17/2023 Lonely or Isolated Not on file 01/17/2023 Employment Answer Date Recorded Do you want help finding or keeping work or a gadiel b? Not on file 01/17/2023 Disabilities Answer Date Recorded Concentrating, Remembering, or Making Decisions Difficulty Not on file 01/17/2023 Doing Errands Independently Difficulty Not on fi le 01/17/2023 Education Answer Date Recorded Help with school or training? Not on file Preferred Language Not on file 01/17/2023 Comments No Sex and Gender Information Value Date Recorded Sex Assigned at Not on file Legal Sex Female 7:49 AM EDT Gender Identity Not on file Sexual Orientation Not on file documented as of this encounter Last Filed Vital Signs Vital Sign Reading Time Taken Comments Blood Pressure 122/86 01/23/2024 10:52 AM EDT Pulse - - Temperature - - Respiratory Rate - - Oxygen Saturation - - Inhaled Oxygen Concentration - - Weight 99.2 kg (218 lb 11.2 oz) 024 10:52 AM EDT Height 163.6 cm (5' 4.41 ) 01/23/2024 1 0:52 AM EDT Body Mass Index 37.06 01/23/2024 10:52 AM EDT documented in this encounter Progress Notes * Solomon Aguilar MD - 01/23/2024 10:50 AM EDT [facility] Orthopaedic Surgery Office Visit Office Visit Date: 01/23/2024 Patient Name: Sue Cardona Date of : 1960 Referring Physician: Afua Hurley DO Chief Complaint: Chief Complaint Patient presents with Right Hip - Pain History of Present Illness: Sue Cardona is a 63 y.o. female who presents with right hip pain for 4 month(s). Onset atraumatic and gradual in nature. Pain is localized to groin and is radiating down leg and is a 6/10 on thepain scale.Pain is described as dull, aching, burning, throbbing, stabbing, and shooting. Associated symptoms include pain and stiffness. The pain is worse with walking, standing, sitting, climbing stairs, sleeping, working, leisure, lying on affected side, and any movement of the joint; pain pump in back improve the pain. Previous treatments have included: nothing for 3 months duration or longer. Although some transient relief was reported with these interventions, these conservative measures have failed and symptoms have persisted. The patient is limited in daily activities and has had a significant decrease in quality of life as a result. She denies fever, chills, or night sweats or hx of blood clots . Subjective Review of Systems: Review of Systems I have reviewed the following portions of the patient's history:History of Present Illness and review of systems. Past Medical History: Past Medical History: Diagnosis Date Alopecia areata Anxiety Arthritis Arthritis of back 2014 Arthritis of neck 2015 Asthma Back problem Bronchitis Cancer Cervical disc disorder 07/2012 Degenerative Disc Disease Claustrophobia CTS (carpal tunnel syndrome) 08/1989 Surgery right wrist ( 2times) left arm Depression Endometriosis Fibromyalgia Fracture, finger 2018 GERD (gastroesophageal reflux disease) Headache History of migraine headaches Hypertension IBS (irritable bowel syndrome) Knee swelling 06/01 Surgery Low back pain 07/2012 Lower back pain Lumbosacral disc disease 07/2012 Neuroma of foot 2017 Osteoporosis Osteoporosis Peripheral neuropathy 2016 Neuropathy in feet ( right worse) Rotator cuff syndrome 05/01 Surgery Tennis elbow 20-2 Thoracic disc disorder 05/2013 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 Thyroid disease MIA'S - CONTROLLED AT PRESENT Past Surgical History: Past Surgical History: Procedure Laterality Date APPENDECTOMY BACK SURGERY 07/2015 CARPAL TUNNEL RELEASE Bilateral 2020 SECTION x3 CHOLECYSTECTOMY DE QUERVAIN'S RELEASE FINGER SURGERY 2018 I&D FOOT NEUROMA SURGERY Bilateral 2019 GASTRIC SLEEVE LAPAROSCOPIC HYSTERECTOMY JOINT REPLACEMENT 01/2023 KELOID EXCISION KNEE ARTHROSCOPY Left 2020 KNEE CARTILAGE SURGERY Left 2019 LUMBAR SPINAL TUMOR REMOVAL N/A 12/02/2015 Procedure: 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; Surgeon: Artemio Hudson MD;Location: [facility]; Service: NECK SURGERY 12/1978 Keloid NOSE SURGERY SHOULDER SURGERY Left 03:24 Rotator Cuff TOE SURGERY TRIGGER POINT INJECTION 11/2021 Lower back TUBAL ABDOMINAL LIGATION WRIST SURGERY Family History: Family History Problem Relation Age of Onset Hypertension Mother Ulcerative colitis Mother Arthritis Mother Cancer Mother Breast cancer Mother Miscarriages / Stillbirths Mother Vision loss Mother Psoriasis Father Cancer Father Hypertension Sister Psoriasis Sister Anxiety disorder Sister Anxiety disorder Daughter Anxiety disorder Maternal Aunt Asthma Maternal Grandmother Anxiety disorder Son Social History: Social History Socioeconomic History Marital status: Tobacco Use Smoking status: Former Current packs/day: 0.00 Average packs/day: 1 pack/day for 5.0 years (5.0 ttl pk-yrs) Types: Cigarettes Start date: 04/09/1980 Quit date: 04/09/1985 Years since quittin.8 Smokeless tobacco: Never Vaping Use Vaping status: Never Used Substance and Sexual Activity Alcohol use: No Drug use: No Sexual activity: Yes Partners: Male control/protection: Post-menopausal, Tubal ligation, Hysterectomy Medications: Current Outpatient Medications: albuterol (PROVENTIL HFA;VENTOLIN HFA) 108 (90 BASE) MCG/ACT inhaler, Inhale 2 puffs As Needed for Wheezing., Disp: , Rfl: amitriptyline (ELAVIL) 10 MG tablet, Take 1 tablet by mouth Every Evening., Disp: , Rfl: celecoxib (CeleBREX) 200 MG capsule, Take 1 capsule by mouth 2 (Two) Times a Day As Needed for MildPain., Disp: 60 capsule, Rfl: 6 ciprofloxacin (CIPRO) 500 MG tablet, Take 1 tablet by mouth Every 12 (Twelve) Hours., Disp: , Rfl: cyanocobalamin 1000 MCG/ML injection, INJECT 1 ML INTRAMUSCULARLY ONCE EVERY MONTH, Disp: , Rfl: cyclobenzaprine (FLEXERIL) 10 MG tablet, Take 0.5 tablets by mouth 3 (Three) Times a Day As Needed for Muscle Spasms., Disp: 90 tablet, Rfl: 5 DULoxetine (CYMBALTA) 60 MG capsule, Take 1 capsule by mouth 2 (Two) Times a Day., Disp: 60 capsule, Rfl: 6 fexofenadine (YAEL) 180 MG tablet, Take 1 tablet by mouth every night at bedtime., Disp: , Rfl: fluconazole (DIFLUCAN) 150 MG tablet, 1 tablet., Disp: , Rfl: fluticasone (FLONASE) 50 MCG/ACT nasal spray, Administer 2 sprays into the nostril(s) as directed by provider Daily. Administer 2 sprays in each nostril for each dose., Disp: , Rfl: folic acid (FOLVITE) 1 MG tablet, Take 1 tablet by mouth Daily., Disp: , Rfl: gabapentin (NEURONTIN) 600 MG tablet, Take 2 tablets by mouth 3 (Three) Times a Day. Take 2 tabletsby mouth three times a day, Disp: 180 tablet, Rfl: 5 hydrocortisone (CORTEF) 5 MG tablet, TAKE 2 TABLETS BY MOUTH IN THE MORNING AND 1 AT NOON, Disp: , Rfl: levothyroxine (SYNTHROID, LEVOTHROID) 50 MCG tablet, Take 1 tablet by mouth Every Morning., Disp: ,Rfl: losartan (COZAAR) 25 MG tablet, Take 1 tablet by mouth Daily., Disp: , Rfl: montelukast (SINGULAIR) 10 MG tablet, Take 1 tablet by mouth Every Night., Disp: , Rfl: Ozempic, 1 MG/DOSE, 4 MG/3ML solution pen-injector, Inject 1 mg under the skin into the appropriatearea as directed 1 (One) Time Per Week., Disp: , Rfl: pantoprazole (PROTONIX) 40 MG EC tablet, Take 1 tablet by mouth 2 (Two) Times a Day., Disp: , Rfl: rOPINIRole (REQUIP) 5 MG tablet, Take 1 tablet by mouth Every Night. Take 1 hour before bedtime., Disp: , Rfl: Semaglutide,0.25 or 0.5MG/DOS, (Ozempic, 0.25 or 0.5 MG/DOSE,) 2 MG/3ML solution pen-injector, Inject under the skin into the appropriate area as directed Every 7 (Seven) Days., Disp: , Rfl: spironolactone (ALDACTONE) 25 MG tablet, Take 1 tablet by mouth Every Morning., Disp: , Rfl: vitamin D3 125 MCG (5000 UT) capsule capsule, Take 1 capsule by mouth Daily., Disp: , Rfl: ZOLMitriptan (ZOMIG) 5 MG tablet, Take 1 tablet by mouth 1 (One) Time As Needed for Migraine., Disp: , Rfl: Allergies: No Known Allergies I reviewed the patient's chief complaint, history of present illness, review of systems, past medical history, surgical history, family history, social history, medications and allergy list. Objective Vital Signs: Vitals: 01/23/24 1052 BP: 122/86 Weight: 99.2 kg (218 lb 11.2 oz) Height: 163.6 cm (64.41 ) Body mass index is 37.06 kg/m??. Class 2 Severe Obesity (BMI >=35 and <=39.9). Obesity-related health conditions include the following: hypertension, coronary heart disease, diabetes mellitus, and impaired fasting glucose. Obesity is newly identified. BMI is is above average; BMI management plan is completed. We discussed portion control and increasing exercise. Patient reports that she is a former smoker. She quit smoking in 1985. She has not resumed smoking since that time. This behavior was applauded and she was encouraged to continue in smoking cessation. We will continue to monitor at subsequent visits. Ortho Exam: Gait and Station: Appearance: antalgic gait. Cardiovascular System: Arterial Pulses Right: dorsalis pedis pulse normal. Varicosities Right: capillary refill test normal. Lumbar Spine: Inspection: normal alignment. Hip/Pelvis Appearance: Inspection: normal axial alignment. Hips: Bony Palpation Right: no tenderness of the greater trochanter. Soft Tissue Palpation Right: tenderness of the hip flexor muscles. Active Range of Motion Right: limited (secondary to pain especially flexion and rotation). Strength Right: normal 5/5. +FADIR. Skin: Right Lower Extremity: normal. Left Lower Extremity: normal. Neurologic: Sensation on the Right: L1 normal, L2 normal, L3 normal, L4 normal, and S2 normal. Sensation on the Left: L1 normal, L2 normal, L3 normal, L4 normal, and S2 normal. Results Review: Imaging Results (Last 24 Hours) Procedure Component Value Units Date/Time XR Hip With or Without Pelvis 2 - 3 View Right [[id number]] Resulted: 01/23/241126 Updated: 01/23/241126 Narrative: Indication: Right hip pain. Views: AP pelvis and lateral view of the hip are submitted. Impression: There are no acute findings. There is no fracture subluxation or dislocation. Mild degenerative changes of the hip joint. Enthesophytes noted at the greater trochanter. Comparison: No comparison images available. Procedures Assessment / Plan Assessment/Plan: Diagnoses and all orders for this visit: 1. Right hip pain (Primary) - XR Hip With or Without Pelvis 2 - 3 View Right - US Guided Injection; Future 2. Primary osteoarthritis of right hip Other orders - - Large Joint Arthrocentesis: R hip joint Patient with right anterior hip and groin pain ongoing for the last several weeks to months. Radiographs of her right hip show mild degenerative changes at the hip joint. Intra-articular symptoms arereproducible on physical exam. We reviewed her imaging findings and discussed diagnosis of primary hip osteoarthritis in detail. Today, we will start treatment with an ultrasound- guided corticosteroid injection into the hip joint as pain is her primary complaint. She will continue with Celebrex as needed control her symptoms moving forward. I encouraged her to work on her strength and range of motion in the hip. She will follow-up in 3 months or as needed. Previous laboratory results reviewed: 11/05/2020-creatinine 1.10. Previous imaging studies reviewed: 01/15/2024-radiographs of the right hip. Previous documentation reviewed: 09/05/2023-office visit-Ivan Alvarado DO. Follow Up: No follow-ups on file. Bobby Aguilar MD [facility] Orthopedic and Sports Medicine * Adri Norwood - 01/23/2024 10:50 AM EDTAssociated Order(s): - Large Joint Arthrocentesis: R hip joint Post-Procedure Diagnose(s): Primary osteoarthritis of right hip Procedure - Large Joint Arthrocentesis: R hip joint on 01/23/2024 11:40 AM Indications: pain Details: 21 G needle, ultrasound-guided anterolateral approach Medications: 2 mL lidocaine PF 1% 1 %; 80 mg triamcinolone acetonide 40 MG/ML Outcome: tolerated well, no immediate complications Procedure, treatment alternatives, risks and benefits explained, specific risks discussed. Consent was given by the patient. Immediately prior to procedure a time out was called to verify the correctpatient, procedure, equipment, retail support manager and site/side marked as required. Patient was prepped and draped in the usual sterile fashion. documented in this encounter Plan of Treatment Upcoming Encounters Date Type Department Care Team (Late st Contact Info) Description 03/10/2024 11:30 AM EST Office Visit [facility] [address] [facility] [address] [place] [phone] Ivan Alvarado DO [address] [facility] [address] [place] [address] 04/24/2024 10:50 AM EST Office Visit [facility] [address] [facility] [address] [place] [phone] Solomon Aguilar MD [address] [facility] [address] [place] [address] documented as of this encounter Procedures Procedure Name Priority Date/Time Associated Diagnosis Comments [place] ARTHROCENTESIS ASPIR&/INJ MAJOR JT/BURSA W/US Routine 01/23/2024 11:40 AM EDT Primary osteoarthritis of right hip XR HIP W OR WO PELVIS 2-3 VIEW RIGHT Routine 01/23/2024 11:18 AM EDT Right hip pain documented in this encounter Results * US Guided Injection (01/23/2024 12:23 PM EDT) Anatomical Region Laterality Modality Ultrasound Narrative 01/23/2024 1:52 PM EDT US GUIDED RIGHT HIP JOINT TORADOL INJECTION Solomon Aguilar MD [facility] US ORDERABLES Final Res ult * [place] ARTHROCENTESIS ASPIR&/INJ MAJOR JT/BURSA W/US (01/23/2024 11:40 AM EDT) Narrative Adri Norwood - 01/23/2024 11:40 AM EDT Adri Norwood ? 02/06/2024 ??2:48 PM - Large Joint Arthrocentesis: R hip joint on 01/23/2024 11:40 AM Indications: pain Details: 21 G needle, ultrasound-guided anterolateral approach Medications: 2 mL lidocaine PF 1% 1 %; 80 mg triamcinolone acetonide 40 MG/ML Outcome: tolerated well, no immediate complications Procedure, treatment alternatives, risks and benefits explained, specific risks discussed. Consent was given by the patient. Immediately prior to procedure a time out was called to verify the correct patient, procedure, equipment, retail support manager and site/side marked as required. Patient was prepped and draped in the usual sterile fashion. Solomon Aguilar MD PROCEDURE/MINOR SURGICAL OR DERABLES Edited Result - Final * XR Hip With or Without Pelvis 2 - 3 View Right (01/23/2024 11:18 AM EDT) Anatomical Region Laterality Modality Lower Extremities, Hip Right Radiograp hic Imaging Narrative 01/23/2024 11:27 AM EDT Indication: Right hip pain. Views: AP pelvis and lateral view of the hip are submitted. Impression: ??There are no acute findings. There is no fracture subluxation or dislocation. Mild degenerative changes of the hip joint. Enthesophytes noted at the greater trochanter. Comparison: No comparison images available. Solomon Aguilar MD [facility]Z Final Result documented in this encounter Visit Diagnoses Diagnosis Right hip pain- Primary Pain in joint, pelvic region and thigh Primary osteoarthritis of right hip Right hip pain Pain in joint, pelvic region and thigh documented in this encounter Administered Medications Inactive Administered Medications - up to 3 most recent administrations Medication Order MAR Action Action Date Dose Rate Site lidocaine PF 1% (XYLOCAINE) injection 2 mL 2 mL, One-Time Injection, Starting on Sun01/23/24 at 1140, For 1 doseIndications:Primary osteoarthritis of right hip Given 01/23/2024 11:40 AM EDT 2 mL Hip Right triamcinolone acetonide (KENALOG-40) injection 80 mg 80 mg, One-Time Injection, Starting on Sun01/23/24 at 1140, For 1 doseIndications:Primary osteoarthritis of right hip Given 01/23/2024 11:40 AM EDT 80 mg Hip Right documented in this encounter Care Teams Production Control Clerk Relationship Specialty Start Date End Date Afua Hurley DO [address] [place] [address] PCP - General Family Medicine 10/14/15 documented as of this encounter
--- OUTSIDE RECORDS SUMMARY | 2024-02-24 15:58 | XMS_ITS | Encounter Summary ---
[facility] Address [address] [place] [id number] Care Team Providers Care Creative Writing English Professor Name Role Phone Afua Hurley Primary Care Provider [phone] Reason for Visit * Reason Onset Date Comments FAX MRI REPORT 09/09/2021 Encounter Details Date Type Department Care Team (Late st Contact Info) Description 09/09/2021 Telephone [facility] NEUROSURGERY [address] [address] Artemio Hudson MD [address] [place] [address] FAX MRI REPORT Social History Tobacco Use Types Packs/Day Years [...] encounter Miscellaneous Notes * Telephone Encounter - Thalia Yepez - 09/09/2021 11:56 AM EDT MRI REPORT SENT * Telephone Encounter - Katt Canales RegSched Rep - 09/09/2021 11:44 AM EDT Caller: JENI Relationship: [facility] Best call back number: [phone] What form or medical record are you requesting: MRI REPORT FROM 11/05/2020 Who is requesting this form or medical record from you: PCP How would you like to receive the form or medical records (pick-up, mail, fax): FAX If fax, what is the fax number: [phone] Timeframe paperwork needed: CAMI Additional notes: JENI CALLED TO REQUEST THE LAST MRI REPORT THAT WE HAD ON FILE FOR PT TO BE FAXED TO HER OFFICE THANK YOU documented in this encounter Plan of Treatment Upcoming Encounters Date Type Department Care Team (Late st Contact Info) Description 03/10/2024 11:30 AM EST Office Visit [facility] RHEUMATOLOGY [address] [phone] Ivan Alvarado DO [address] [facility] [address] [place] [address] 04/24/2024 10:50 AM EST Office Visit [facility] [address] [place] [phone] Solomon Aguilar MD [address] [facility] [address] [place], [place] [id number] documented as of this encounter Visit Diagnoses Not on filedocumented in this encounter Care Teams Creative Writing English Professor Relationship Specialty Start Date End Date Afua Hurley DO [address] [place] [address] PCP - General Family Medicine 10/14/15 documented as of this encounter
--- OUTSIDE RECORDS SUMMARY | 2024-02-24 15:58 | XMS_ITS | Encounter Summary ---
[facility] Address [address] [place] [id number] Care Team Providers Care Set Staff Fitter Name Role Phone Afua Hurley Primary Care Provider [phone] Encounter Details Date Type Department Care Team (Late st Contact Info) Description 11/22/2023 3:00 PM EDT Office Visit [facility] NEUROS[facility]ERY [address] [facility] [address] [place] [address] Artemio Hudson MD [address] [facility] [address] [place] [address] Ependymoma (Primary Dx) Social History Tobacco Use [...] Pressure - - Pulse - - Temperature - - Respiratory Rate 17 11/22/2023 3:16 PM EDT Oxygen Saturation - - Inhaled Oxygen Concentration - - Weight 97.1 kg (214 lb) 11/22/2023 3:16 PM EDT Height 162.6 cm (5' 4.02 ) 11/22/2023 3:16 PM ED T Body Mass Index 36.71 11/22/2023 3:16 PM EDT documented in this encounter Progress Notes * Artemio Hudson MD - 11/22/2023 3:00 PM EDT Patient: Sue Cardona : 1960 Primary Care Provider: Afua Hurley DO Requesting Provider: As above History Chief Complaint: Mid back pain. History of Present Illness: Ms. 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 On 12/02/2015 she underwent T5 and T6 laminectomies to resect the intramedullary spinal cord tumor. 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 Gross total resection was accomplished. She did not undergo adjuvant treatment of any sort. She continues to have sensory alteration from the groin down into her feet. That is unchanged. She has had her left shoulder operated on since I saw her last. She does have a pain pump in place that she continues to utilize. Review of Systems Constitutional: Negative for activity change, appetite change, chills, diaphoresis, fatigue, fever and unexpected weight change. HENT: Negative for congestion, dental problem, drooling, ear discharge, ear pain, facial swelling, hearing loss, mouth sores, nosebleeds, postnasal drip, rhinorrhea, sinus pressure, sneezing, sore throat, tinnitus, trouble swallowing and [...] color change, pallor, rash and wound. Allergic/Immunologic: Negative for environmental allergies, food allergies and immunocompromised state. Neurological: Negative for dizziness, tremors, seizures, syncope, facial asymmetry, speech difficulty, weakness, light-headedness, numbness and headaches. Hematological: Negative for adenopathy. Does not bruise/bleed easily. Psychiatric/Behavioral: Negative for agitation, behavioral problems, confusion, decreased concentration, dysphoric mood, hallucinations, self-injury, sleep disturbance and suicidal ideas. The patientis not nervous/anxious and is not hyperactive. All other systems reviewed and are negative. The patient's past medical history, past surgical history, family history, and social history have been reviewed at length in the electronic medical record. Physical Exam: Resp 17 Ht 162.6 cm (64.02 ) Wt 97.1 kg (214 lb) BMI 36.71 kg/m?? Reflexes are uniformly difficult to elicit in her lower extremities. Medical Decision Making Data Review: (All imaging studies were personally reviewed unless stated otherwise) Follow-up MRI of the thoracic spine with and without gadolinium dated 11/21/2023 is compared to the prior study from 12/06/2022. There is no interval change. There is some myelomalacia at the operativesite. As noted by the radiologist there is perhaps a bit of dorsal tethering of the cord to overlying soft tissues but this is unchanged. Diagnosis: Thoracic ependymoma status post resection. Treatment Options: Ms. Cardona is doing well. She will follow-up in 2 years in my clinic with a new MRI of the thoracicspine with and without gadolinium. Scribed for Artemio Hudson MD by Marcella Mariscal CMA on 11/22/2023 15:17 EDT I, Dr. Hudson, personally performed the services described in the documentation, as scribed in my presence, and it is both accurate and complete. documented in this encounter Plan of Treatment Upcoming Encounters Date Type Department Care Team (Late st Contact Info) Description 03/10/2024 11:30 AM EST Office Visit [facility] RHEUMATOLOGY [address] [facility] [address] [place] [address] Ivan Alvarado DO [address] [facility] [address] [place] [address] 04/24/2024 10:50 AM EST Office Visit [facility] ORTHOPEDICS & SPORTS MEDICINE [address] [facility] [address] [place] [address] Solomon Aguilar MD [address] [facility] [address] [place] [address] documented as of this encounter Visit Diagnoses Diagnosis Ependymoma- Primary Malignant neoplasm of brain, unspecified site documented in this encounter Care Teams Set Staff Fitter Relationship Specialty Start Date End Date Afua Hurley [place] [facility] [place] [address] PCP - General Family Medicine 10/14/15 documented as of this encounter
--- OUTSIDE RECORDS SUMMARY | 2024-02-24 15:58 | XMS_ITS | Encounter Summary ---
[facility] Address [address] [place] [address] Care Team Providers Care Photo Specialist Name Role Phone Mei Afuajenifer Dejesusgh Primary Care Provider [phone] Encounter Details Date Type Department Care Team (Late st Contact Info) Description 01/23/2024 11:15 AM EDT Ancillary Procedure [facility] [address] [place] [phone] Social History Tobacco Use Types Packs/Day Years Used Date Smoking Tobacco: Former Cigarettes 1 5 0 04/09/1980 - 04/09/1985 Smokeless Tobacco: Never Alcohol Use Standard Drinks/Week [...] on file documented as of this encounter Plan of Treatment Upcoming Encounters Date Type Department Care Team (Late st Contact Info) Description 03/10/2024 11:30 AM EST Office Visit [facility] RHEUMATOLOGY [address] [facility] [address] [place] [address] Ivan Alvarado DO [address] [facility] [address] [place] [address] 04/24/2024 10:50 AM EST Office Visit [facility] ORTHOPEDICS & SPORTS MEDICINE [address] [facility] [address] [place] [address] Solomon Aguilar MD [address] [facility] [address] [place] [address] documented as of this encounter Procedures Procedure Name Priority Date/Time Associated Diagnosis Comments XR HIP W OR WO PELVIS 2-3 VIEW RIGHT Routine 01/23/2024 11:18 AM EDT Right hip pain documented in this encounter Results * XR Hip With or Without Pelvis [...] greater trochanter. Comparison: No comparison images available. us Solomon Aguilar MD [facility] ZENY DIETZ Final Result documented in this encounter Visit Diagnoses Not on filedocumented in this encounter Care Teams Photo Specialist Relationship Specialty Start Date End Date Afua Hurley DO [address] [place], [place] [id number] PCP - General Family Medicine 10/14/15 documented as of this encounter
--- OUTSIDE RECORDS SUMMARY | 2024-02-24 15:58 | XMS_ITS | Encounter Summary ---
[facility] Address [address] [place] [id number] Care Team Providers Care Speech And Hearing Director Name Role Phone Afua Hurley DO Primary Care Provider [phone] Reason for Referral * MRI/CAT/PET Scan (Routine) - Closed Specialty Diagnoses / Procedures Referred By Contac t Referred To Contact Radiology Diagnoses Ependymoma Procedures MRI Thoracic Spine With & Without Contrast Artemio Hudson MD [address] [address] Phone: tel: fax: [facility] MRI [address] [place] [address] Phone: tel: Referral ID Status Reason Start Date Expiration Date Visits Re quested Visits Authorized [id number] Closed 12/07/2022 12/07/2023 1 1 Reason for Visit * Reason Comments annual follow up MRI for ependymoma Encounter Details Date Type Department Care Team (Late st Contact Info) Description 12/07/2022 9:40 AM EDT Office Visit [facility] NEUROSURGERY [address] [phone] Artemio Hudson MD [address] [place] [address] Ependymoma (Primary Dx) Social History Tobacco Use [...] Concentration - - Weight 118 kg (260 lb) 12/07/2022 9:49 AM EDT Height 162.6 cm (5' 4 ) 12/07/2022 9:49 AM EDT Body Mass Index 44.63 12/07/2022 9:49 AM EDT documented in this encounter Progress Notes * Artemio Hudson MD - 12/07/2022 9:40 AM EDT Patient: Sue Cardona : 1960 Primary Care Provider: Afua Hurley DO Requesting Provider: As above History Chief Complaint: Mid back pain. History of Present Illness: Ms. Cardona is a 62-year-old woman who presented with increasing mid back [...] into her feet. That is unchanged. She does have chronic low back issues and has had a pain pump placed by Dr. Ramos since I saw her the last time. That has been fairly helpful. Review of Systems Constitutional: Negative for activity [...] sores, hematuria and urgency. Musculoskeletal: Positive for arthralgias, back pain, joint swelling and myalgias. Negative for gait problem, neck pain and neck stiffness. Skin: Negative [...] in the electronic medical record. Physical Exam: Ht 162.6 cm (64 ) Wt 118 kg (260 lb) BMI 44.63 kg/m?? Reflexes remain difficult to elicit in her lower extremities. Sensation is slightly diminished to light touch testing throughout her lower extremities Medical Decision Making Data Review: (All imaging studies were personally reviewed unless stated otherwise) Follow-up MRI of the thoracic spine with and without gadolinium from 12/06/2022 is compared to the study from 12/06/2021. Some of the axial images are bit blurred and difficult to make out but on the whole I do not see any change. Postsurgical changes are noted. Diagnosis: Thoracic ependymoma status postresection, stable. Treatment Options: The patient is doing well. She will follow-up in 1 year with a new MRI of the thoracic spine with and without gadolinium. Diagnosis Plan 1. Ependymoma I, Dr. Hudson, personally performed the services described in the documentation, as scribed in my presence, and it is both accurate and complete. documented in this encounter Plan of Treatment Upcoming Encounters Date Type Department Care Team (Late st Contact Info) Description 03/10/2024 11:30 AM EST Office Visit [facility] RHEUMATOLOGY [address] [facility] [address] [place] [address] Ivan Alvarado DO [address] [facility] [address] [place] [address] 04/24/2024 10:50 AM EST Office Visit [facility] ORTHOPEDICS & SPORTS MEDICINE [address] [facility] [address] [place] [address] Solomon Aguilar MD [address] [facility] [address] [place] [address] documented as of this encounter Results * MRI Thoracic Spine With & Without Contrast (11/21/2023 12:14 PM EDT) Anatomical Region Laterality Modality Spine, T-spine N/A Magnetic Resonan ce 11/21/2023 4:48 PM EDT Impressions 11/21/2023 5:00 PM EDT Impression: Stable postoperative changes from prior laminectomy and resection of ependymoma. Some minimal tethering and myelomalacia are stable without new signal abnormality or abnormal enhancement present. Electronically Signed: Cuco Brown MD 11/21/2023 5:00 PM EDT Workstation ID: [id number] Narrative 11/21/2023 5:00 PM EDT MRI THORACIC SPINE W WO CONTRAST Date of Exam: 11/21/2023 11:31 AM EDT Indication: Ependymoma f/u. Comparison: 12/06/2022. Technique: ??Routine multiplanar/multisequence sequence images of the thoracic spine were obtained before and after the uneventful administration of Multihance. ?? Findings: Redemonstrated postoperative changes from prior T5 and T6 laminectomy for resection of ependymoma. Marrow signal remains preserved throughout without acute osseous finding present otherwise. Redemonstrated presumed benign hemangioma is noted at T3. Alignment remains essentially anatomic without new listhesis or subluxation. There is some unchanged mild tethering of the dorsal aspect of the spinal cord at the operative site, with some unchanged small areas of T2 hyperintensity seen along the dorsal aspect of the cord consistent with mild myelomalacia. There is otherwise no new focal cord signal abnormality or abnormal enhancement present concerning for recurrent tumor. No additional focal cord signal abnormality is present. The spinal canal and neural foramina are patent throughout, without evidence of significant spondylosis. The paraspinal soft tissues demonstrate no acute or suspicious findings. Procedure Note Solomon Brown MD - 11/21/2023 MRI THORACIC SPINE W WO CONTRAST Date of Exam: 11/21/2023 11:31 AM EDT Indication: Ependymoma f/u. Comparison: 12/06/2022. Technique: Routine multiplanar/multisequence sequence images of thethoracic spine were obtained before and after the uneventfuladministration of Multihance. Findings: Redemonstrated postoperative changes from prior T5 and T6 laminectomy forresection of ependymoma. Marrow signal remains preserved throughoutwithout acute osseous finding present otherwise. Redemonstrated presumedbenign hemangioma is noted at T3. Alignment remains essentially anatomic without new listhesis orsubluxation. There is some unchanged mild tethering of the dorsal aspectof the spinal cord at the operative site, with some unchanged small areasof T2 hyperintensity seen along the dorsal aspect of the cord consistent with mild myelomalacia. There is otherwiseno new focal cord signal abnormality or abnormal enhancement presentconcerning for recurrent tumor. No additional focal cord signalabnormality is present. The spinal canal and neural foramina are patent throughout, without evidence of significantspondylosis. The paraspinal soft tissues demonstrate no acute orsuspicious findings. IMPRESSION: Impression: Stable postoperative changes from prior laminectomy and resection ofependymoma. Some minimal tethering and myelomalacia are stable without newsignal abnormality or abnormal enhancement present. Electronically Signed: Cuco Brown MD 11/21/2023 5:00 PM EDT Workstation ID: [id number] us Artemio Hudson MD IMG MRI ORDERABLES Final Resu lt documented in this encounter Visit Diagnoses Diagnosis Ependymoma- Primary Malignant neoplasm of brain, unspecified site Ependymoma Malignant neoplasm of brain, unspecified site documented in this encounter Care Teams Speech And Hearing Director Relationship Specialty Start Date End Date Afua Hurley DO [facility] [email or web address] [id number] PCP - General Family Medicine 10/14/15 documented as of this encounter
--- OUTSIDE RECORDS SUMMARY | 2024-02-24 15:58 | XMS_ITS | Encounter Summary ---
[facility] Address [address] [place] [address] Care Team Providers Care Regional Extension Service Specialist Name Role Phone Afua Hurley Ellen Primary Care Provider [phone] Encounter Details Date Type Department Care Team (Latest Contact Info) Description 01/23/2024 Travel Social History Tobacco Use Types Packs/Day Years [...] Visit [facility] RHEUMATOLOGY [address] [facility] [address] [place] [address] Ivan Alvarado DO [address] [facility] [address] [place] [address] 04/24/2024 10:50 AM EST Office Visit [facility] ORTHOPEDICS & SPORTS MEDICINE [address] [facility] [address] [place] [phone] Solomon Aguilar MD [address] [facility] [address] [place] [address] documented as of this encounter Visit Diagnoses Not on filedocumented in this encounter Care Teams Regional Extension Service Specialist Relationship Specialty Start Date End Date Afua Hurley DO [address] [place] [address] PCP - General Family Medicine 10/14/15 documented as of this encounter
--- OUTSIDE RECORDS SUMMARY | 2024-02-24 15:58 | XMS_ITS | Encounter Summary ---
[facility] Address [address] [place] [address] Care Team Providers Care Manufacturing Maintenance Mechanic Name Role Phone PraveenyvetteAfua DO Primary Care Provider [phone] Reason for Visit * Reason Comments Osteoarthritis Follow up Fibromyalgia Follow up Encounter Details Date Type Department Care Team (Latest Contact Info) Description 09/05/2023 11:00 AM EDT Office Visit [facility] RHEUM[facility]OLOGY [address] [facility] [address] [place] [phone] Ivan Alvarado DO 3000 [facility] [address] [place] [address] Fibromyalgia (Primary Dx); Primary osteoarthritis involving multiple joints; NSAID long-term use; High risk medication use Social History Tobacco Use Types Packs/Day Years [...] Sign Reading Time Taken Comments Blood Pressure 122/80 09/05/2023 11:43 AM EDT Pulse 102 09/05/2023 11:43 AM EDT Temperature 36.4 ??C (97.5 ??F) 09/05/2023 1 1:43 AM EDT Respiratory Rate - - Oxygen Saturation - - Inhaled Oxygen Concentration - - Weight 98.7 kg (217 lb 11.2 oz) 024 11:43 AM EDT Height 162.6 cm (5' 4.02 ) 09/05/2023 1 1:43 AM EDT Body Mass Index 37.35 09/05/2023 11:43 AM EDT documented in this encounter Patient Instructions * Attachments The following attachments cannot be sent through Care Everywhere. * Osteoarthritis (Ghanaian) documented in this encounter Progress Notes * Ivan Alvarado, - 09/05/2023 11:00 AM EDTAssociated Problem(s): Fibromyalgia * Medications/treatments tried included: Celebrex, Cymbalta, Baclofen, She saw pain management, Back injections, Rhizotomy procedures, physical therapy, chiropractor, Tramadol, hydrocodone, Flexeril , She saw [facility] rheumatology (Dr. Bojorquez), Skelaxin, gabapentin, She saw Dr. Weaver (Spine s urgery), She has a TENS Unit, She saw Dr. Villarreal (ortho), knee replacement surgery, carpal tunnelsurgery, Elavil, Trigger point injections, shoulder injections, she saw Dr. Lee (orthopaedic surgeon), She had a pain pump installed 1. H & P Compatible with fibromyalgia. 2. Encourage aerobic activity and sleep hygiene. 3. If she has not had a sleep study/consultation consider getting this done. 4. We gave her an educational handout to take home and review on OA. 5. She will follow up with us in 6 months. 6. She tried taking Trazodone to help sleep 7. She has seen a chiropractor and. She has tried using a TENS unit. 8. She has taken Cymbalta 60 twice/day. 9. She has taken gabapentin 1200 mg TID. 10. She has taken Tramadol PRN. 11. She has chronic back/hip pain. She has seen Dr. Ramos for pain management 12. Weight loss would be helpful. She is taking Ozempic for weight loss. 13. She has taken Celebrex PRN for joint pain. We refilled this today. 14. She has taken various muscle relaxer's like Flexeril PRN for muscle pain/spasms. 15. She tried Rheumate 16. Her prognosis is guarded. She has chronic/constant pain 17. She has tried taking Elavil 18. She had a pain pump installed * Ivan Alvarado DO - 09/05/2023 11:00 AM EDTAssociated Problem(s): Osteoarthritis 1. Weight loss would be helpful 2. She has taken/tried Tylenol PRN 3. She has taken NSAIDS like Celebrex PRN 4. She has tried muscle relaxer's like Baclofen PRN 5. She has seen [...] neuropathic pain 13. She has seen a chiropractor 14. She has taken hydrocodone/APAP 15. She has tried taking Tramadol PRN 16. She has had shoulder injections 17. She had a pain pump installed 18. She had shoulder surgery. * Ivan Alvarado DO - 09/05/2023 11:00 AM EDT Images from the original note were not included. Office Follow Up Date: 09/05/2023 Patient Name: Sue Cardona Date of : 1960 Referring Physician: Referring, Self Chief Complaint Patient presents with Osteoarthritis Follow up Fibromyalgia Follow up History of Present Illness: Sue Cardona is a 63 y.o. female who is here today for follow up. Today she rates her pain as 4/10 in severity. She has 1 hour and 45 minutes/day of morning stiffness. No red or hot joints. No joint swelling. No muscle pain or weakness. She has back and neck pain. Her neck is stiff. No rash. She notes hair loss. She bruises easily. No lymphadenopathy. No headaches or paresthesias.No chest pain. No GI or issues. No shortness of breath. No sicca symptoms. Subjective Review of Systems Constitutional: Negative. HENT: Negative. Eyes: Negative. Respiratory: Positive for cough. Cardiovascular: Negative. Gastrointestinal: Negative. Endocrine: Positive for heat intolerance. Genitourinary: Negative. Musculoskeletal: Positive for arthralgias, back pain, neck pain and neck stiffness. Skin: Negative. Positive for bruise. Allergic/Immunologic: Negative. Neurological: Positive for memory problem. Hematological: Bruises/bleeds easily. Psychiatric/Behavioral: The patient is nervous/anxious. All other systems reviewed and are negative. Current Outpatient Medications: albuterol (PROVENTIL HFA;VENTOLIN HFA) 108 (90 BASE) MCG/ACT inhaler, Inhale 2 puffs As Needed for Wheezing., Disp: , Rfl: amitriptyline (ELAVIL) 10 MG tablet, Take 1 tablet by mouth Every Evening., Disp: , Rfl: celecoxib (CeleBREX) 200 MG capsule, Take 1 capsule by mouth 2 (Two) Times a Day As Needed for MildPain., Disp: 60 capsule, Rfl: 6 cyanocobalamin 1000 MCG/ML injection, INJECT 1 ML INTRAMUSCULARLY ONCE EVERY MONTH, Disp: , Rfl: DULoxetine (CYMBALTA) 60 MG capsule, Take 1 capsule by mouth 2 (Two) Times a Day., Disp: 60 capsule, Rfl: 6 fexofenadine (YAEL) 180 MG tablet, Take 1 tablet by mouth every night at bedtime., Disp: , Rfl: fluticasone (FLONASE) 50 MCG/ACT nasal spray, 2 sprays into the nostril(s) as directed by provider Daily. Administer 2 sprays in each nostril for each dose., Disp: , Rfl: gabapentin (NEURONTIN) 600 MG [...] tablet by mouth Daily., Disp: , Rfl: meclizine (ANTIVERT) 12.5 MG tablet, Take 1 tablet by mouth 3 (Three) Times a Day As Needed for Dizziness., Disp: , Rfl: montelukast (SINGULAIR) 10 MG tablet, Take 1 tablet by mouth Every Night., Disp: , Rfl: pantoprazole (PROTONIX) 40 MG [...] As Needed for Migraine., Disp: , Rfl: cyclobenzaprine (FLEXERIL) 10 MG tablet, Take 0.5 tablets by mouth 3 (Three) Times a Day As Needed for Muscle Spasms. (Patient not taking: Reported on 09/05/2023), Disp: 90 tablet, Rfl: 5 No Known Allergies I have reviewed and updated the patient's chief complaint, history of present illness, review of systems, past medical history, surgical history, family history, social history, medications and allergy list as appropriate. Objective Vitals: 09/05/23 1143 BP: 122/80 BP Location: Left arm Patient Position: Sitting Cuff Size: Adult Pulse: 102 Temp: 97.5 ??F (36.4 ??C) Weight: 98.7 kg (217 lb 11.2 oz) Height: 162.6 cm (64.02 ) PainSc: 4 PainLoc: Back Body mass index is 37.35 kg/m??. Physical Exam General: Well developed, well nourished 63 year old female, not in distress. She is ambulating unassisted. Skin: No rash. No subcutaneous nodules. No alopecia Head/Neck: NCAT, neck is supple, no salivary gland enlargement Eyes: Conjunctiva clear, no photophobia Nose/Mouth: No oral or nasal ulcers. Lung exam: Clear bilaterally, no wheezing, no rales, no rhonchi CV: Regular rate and rhythm. No murmurs, rubs, or gallops. Peripheral vascular: No edema, no cyanosis Psych: Normal mood and affect. The patient is oriented to person, place, and time MSK: None of the joints are warm to touch. Her right 3rd PIP is tender with swelling. She has myofascial tender points above and below the waist. She has normal range of motion of her wrists, elbows,knees, and ankles. Left arm in brace. Lymph: No cervical lymphadenopathy Procedures Assessment / Plan Assessment & Plan Fibromyalgia * Medications/treatments tried included: Celebrex, Cymbalta, Baclofen, She saw pain management, Back injections, Rhizotomy procedures, physical therapy, chiropractor, Tramadol, hydrocodone, Flexeril , She saw [facility] rheumatology (Dr. Bojorquez), Skelaxin, gabapentin, She saw Dr. Weaver (Spine s urgery), She has a TENS Unit, She saw Dr. Villarreal (ortho), knee replacement surgery, carpal tunnelsurgery, Elavil, Trigger point injections, shoulder injections, she saw Dr. Lee (orthopaedic surgeon), She had a pain pump installed 1. H & P Compatible with fibromyalgia. 2. Encourage aerobic activity and sleep hygiene. 3. If she has not had a sleep study/consultation consider getting this done. 4. We gave her an educational handout to take home and review on OA. 5. She will follow up with us in 6 months. 6. She tried taking Trazodone to help sleep 7. She has seen a chiropractor and. She has tried using a TENS unit. 8. She has taken Cymbalta 60 twice/day. 9. She has taken gabapentin 1200 mg TID. 10. She has taken Tramadol PRN. 11. She has chronic back/hip pain. She has seen Dr. Ramos for pain management 12. Weight loss would be helpful. She is taking Ozempic for weight loss. 13. She has taken Celebrex PRN for joint pain. We refilled this today. 14. She has taken various muscle relaxer's like Flexeril PRN for muscle pain/spasms. 15. She tried Rheumate 16. Her prognosis is guarded. She has chronic/constant pain 17. She has tried taking Elavil 18. She had a pain pump installed Primary osteoarthritis involving multiple joints 1. Weight loss would be helpful 2. She has taken/tried Tylenol PRN 3. She has taken NSAIDS like Celebrex PRN 4. She has tried muscle relaxer's like Baclofen PRN 5. She has seen [...] neuropathic pain 13. She has seen a chiropractor 14. She has taken hydrocodone/APAP 15. She has tried taking Tramadol PRN 16. She has had shoulder injections 17. She had a pain pump installed 18. She had shoulder surgery. NSAID long-term use * Celebrex 200 mg once/day PRN for pain Do not take over-the counter anti-inflammatory medicines, such as ibuprofen or naproxen (Advil, Motrin, Aleve and others), as they may cause problems when combined with your prescription medications.In general, low dose daily aspirin for the treatment or prevention of heart disease or stroke is safe to take. Acetaminophen (Tylenol) is generally safe to take as directed for headaches, cramps or other aches and pains or fever reduction High risk medication use * Gabapentin 1200 mg TID for fibromyalgia * Controlled substance agreement signed 09/05/23 Check NICK and Drug screen as required. Drug screen ordered today Orders Placed This Encounter Procedures Urine Drug Screen - Urine, Clean Catch New Medications Ordered This Visit Medications celecoxib (CeleBREX) 200 MG capsule Sig: Take 1 capsule by mouth 2 (Two) Times a Day As Needed for Mild Pain. Dispense: 60 capsule Refill: 6 cyclobenzaprine (FLEXERIL) 10 MG tablet Sig: Take 0.5 tablets by mouth 3 (Three) Times a Day As Needed for Muscle Spasms. Dispense: 90 tablet Refill: 5 DULoxetine (CYMBALTA) 60 MG capsule Sig: Take 1 capsule by mouth 2 (Two) Times a Day. Dispense: 60 capsule Refill: 6 gabapentin (NEURONTIN) 600 MG tablet Sig: Take 2 tablets by mouth 3 (Three) Times a Day. Take 2 tablets by mouth three times a day Dispense: 180 tablet Refill: 5 Follow Up: Return in about 6 months (around 03/07/2024). Ivan Alvarado DO [facility] [place] [facility] documented in this encounter Plan of Treatment Upcoming Encounters Date Type Department Care Team (Late st Contact Info) Description 03/10/2024 11:30 AM EST Office Visit [facility] RHEUMATOLOGY [address] [phone] Ivan Alvarado DO 3000 [facility] [address] [place] [phone] 04/24/2024 10:50 AM EST Office Visit [facility] [address] [facility] [address] [place] [address] Solomon Aguilar MD [address] [facility] [address] [place] [phone] documented as of this encounter Results * (ABNORMAL) Urine Drug Screen - Urine, Clean Catch (09/05/2023 12:19 PM EDT) THC, Screen, Urine Negative Negative 2023 5:06 PM EDT [facility] Phencyclidine (PCP), Urine Negative Negative 09/05/2023 5:06 PM EDT [facility] Cocaine Screen, Urine Negative Negative 09/05/2023 5:06 PM EDT [facility] Methamphetamine, Ur Negative Negative 09/05/2023 5:06 PM EDT [facility] Opiate Screen Positive(A) Negative 09/05/2023 5:06 PM EDT [facility] Amphetamine Screen, Urine Negative Negative 09/05/2023 5:06 PM EDT [facility] Benzodiazepine Screen, Urine Negative Negative 09/05/2023 5:06 PM EDT [facility] Tricyclic Antidepressants Screen Positive(A) Negative 09/05/2023 5:06 PM EDT [facility] Methadone Screen, Urine Negative Negative 09/05/2023 5:06 PM EDT [facility] Barbiturates Screen, Urine Negative Negative 09/05/2023 5:06 PM EDT [facility] Oxycodone Screen, Urine Negative Negative 09/05/2023 5:06 PM EDT [facility] Buprenorphine, Screen, Urine Negative Negative 09/05/2023 5:06 PM [facility] Urine Urine specimen obtained by clean catch procedure / Unknown Collection / Unknown 09/05/2023 12:19 PM EDT 09/05/2023 12:19 PM EDT [facility] - 09/05/2023 5:06 PM EDT Cutoff For Drugs Screened: Amphetamines ? 500 ng/ml Barbiturates ? 200 ng/ml Benzodiazepines ?150 ng/ml Cocaine ?150 ng/ml Methadone ?200 ng/ml Opiates ?100 ng/ml Phencyclidine ? 25 ng/ml THC ? 50 ng/ml Methamphetamine ?500 ng/ml Tricyclic Antidepressants ??300 ng/ml Oxycodone ?100 ng/ml Buprenorphine ? 10 ng/ml The normal value for all drugs tested is negative. This report includes unconfirmed screening results, with the cutoff values listed, to be used for medical treatment purposes only. ??Unconfirmed results must not be used for non-medical purposes such as employment or legal testing. ??Clinical consideration should be applied to any drug of abuse test, particularly when unconfirmed results are used. ?? Ivan Alvarado DO URINE ORDERABLES Final Result [facility]
[address] [place] [address], documented in this encounter Visit Diagnoses Diagnosis Fibromyalgia- Primary Unspecified myalgia and myositis Primary osteoarthritis involving multiple joints NSAID long-term use Encounter for long-term (current) use of non-steroidal anti-inflammatories High risk medication use documented in this encounter Care Teams Manufacturing Maintenance Mechanic Relationship Specialty Start Date End Date Afua Hurley DO [address] [place] [phone] PCP - General Family Medicine 10/14/15 documented as of this encounter
--- OUTSIDE RECORDS SUMMARY | 2024-02-24 15:58 | XMS_ITS | Encounter Summary ---
[facility] Address [address] [place] [address] Care Team Providers Care Inspector Process Name Role Phone Afua Hurley Ellen Primary Care Provider [phone] Encounter Details Date Type Department Care Team (Latest Contact Info) Description 01/22/2024 Travel Social History Tobacco Use Types Packs/Day [...] Description 03/10/2024 11:30 AM EST Office Visit [facility] RHEUMATOLOGY [address] [facility] [address] [place] [phone] Ivan Alvarado DO 3000 [facility] [address] [place] [address] 04/24/2024 10:50 AM EST Office Visit [facility] MEDICINE [address] [facility] [address] [place] [phone] Solomon Aguilar MD [address] [facility] [address] [place] [address] documented as of this encounter Visit Diagnoses Not on filedocumented in this encounter Care Teams Inspector Process Relationship Specialty Start Date End Date Afua Hurley DO [address] [place] [address] PCP - General Family Medicine 10/14/15 documented as of this encounter
--- OUTSIDE RECORDS SUMMARY | 2024-02-24 15:58 | XMS_ITS | Encounter Summary ---
[facility] Organization [facility] Address [address] [place] [address] Care Team Providers Care Liquor Grinder Mill Operator Name Role Phone Afua Hurley Primary Care Provider [phone] Encounter Details Date Type Department Care Team (Late st Contact Info) Description 08/25/2020 Telephone [facility] NEUROSURGERY [address] [facility] [address] [place] [phone] Artemio Hduson MD [address] [facility] [address] [place] [address] Social History Tobacco Use Types Packs/Day Years [...] * Telephone Encounter - Rosana Ortega - 10/04/2020 9:05 PM EDT close documented in this encounter Plan of Treatment Upcoming Encounters Date Type Department Care Team (Late st Contact Info) Description 03/10/2024 11:30 AM EST Office Visit [facility] RHEUMATOLOGY [address] [facility] [address] [place] [phone] Ivan Alvarado DO 3000 [facility] [address] [place], [place] [phone] 04/24/2024 10:50 AM EST Office Visit [facility]ICAL [facility]OP[facility] MEDICINE [address] [facility] [address] [place] [phone] Solomon Aguilar MD [address] [facility] [address] [place], [place] [phone] documented as of this encounter Visit Diagnoses Not on filedocumented in this encounter Care Teams Liquor Grinder Mill Operator Relationship Specialty Start Date End Date Afua Hurley DO [address] [place] [address] PCP - General Family Medicine 10/14/15 documented as of this encounter
--- OUTSIDE RECORDS SUMMARY | 2024-02-24 15:58 | XMS_ITS | Encounter Summary ---
[facility] Address [address] [place] [phone] Care Team Providers Care Nail Mill Worker Name Role Phone Afua Hurley DO Primary Care Provider [phone] Reason for Visit * Diagnostic Imaging (Routine) - Closed Specialty Diagnoses / Procedures Referred By Contact Referred To Contact Orthopedic Surgery Diagnoses Right hip pain Procedures US Guided Injection Solomon Aguilar MD [address] [facility] [address] [place] [address] Phone: tel: fax: [facility] [address] [place] [phone] Phone: tel: fax: Referral ID Status Reason Start Date Expiration Date Visits Re quested Visits Authorized [id number] Closed 01/23/2024 01/22/2025 1 1 Encounter Details Date Type Department Care Team (Latest Contact Info) Description 01/23/2024 11:55 AM EDT Ancillary Procedure [facility] [address] [place] [address] Right hip pain Social History Tobacco Use Types Packs/Day Years Used Date Smoking Tobacco: Former Cigarettes 1 5 0 04/09/1980 - 04/09/1985 Smokeless Tobacco: Never Alcohol Use Standard Drinks/Week Comments No 0 (1 standard drink = 0.6 oz pur e alcohol) Abuse Screen Answer Date Recorded Unsafe at Home or Work/School Not on file 10 /02/2023 Feels Threatened by Someone? Not on file [...] Description 03/10/2024 11:30 AM EST Office Visit [facility] RHEUMATOLOGY [address] [place] [address] Ivan Alvarado DO [address] [place] [address] 04/24/2024 10:50 AM EST Office Visit [facility] [address] [place] [address] Solomon Aguilar MD [address] [facility] [address] [place] [address] documented as of this encounter Procedures Procedure Name Priority Date/Time Associated Diagnosis Comments US GUIDED INJECTION Routine 01/23/2024 1 2:23 PM EDT Right hip pain documented in this encounter Results * US Guided Injection (01/23/2024 12:23 PM EDT) Anatomical Region Laterality Modality Ultrasound Narrative 01/23/2024 1:52 PM EDT US GUIDED RIGHT HIP JOINT TORADOL INJECTION us Solomon Aguilar MD IMG US ORDERABLES Final Res ult documented in this encounter Visit Diagnoses Diagnosis Right hip pain Pain in joint, pelvic region and thigh documented in this encounter Care Teams Nail Mill Worker Relationship Specialty Start Date End Date Afua Hurley DO [facility] [employer] [phone] PCP - General Family Medicine 10/14/15 documented as of this encounter
--- OUTSIDE RECORDS SUMMARY | 2024-02-24 15:58 | XMS_ITS | Encounter Summary ---
Author Organization [facility] Address [address] [place] [address] Care Team Providers Care Game Protector Name Role Phone Afua Hurley DO Primary Care Provider [phone] [phone] Reason for Referral * Diagnostic Imaging (Routine) - Closed Specialty Diagnoses / Procedures Referred By Contac t Referred To Contact Radiology Diagnoses Spinal cord tumor Procedures MRI Thoracic Spine [place] & [place] [address] [place] [address] Phone: tel: fax: Referral ID Status Reason Start Date Expiration Date Visits Re quested Visits Authorized [id number] Closed 08/26/2020 11/23/2020 1 1 Reason for Visit * Diagnostic Imaging (Routine) - Closed Specialty Diagnoses / Procedures Referred By Contac t Referred To Contact Radiology Diagnoses Spinal cord tumor Procedures MRI Thoracic Spine [place] & [place] [address] [place] [address] Phone: tel: fax: Referral ID Status Reason Start Date Expiration Date Visits Re quested Visits Authorized [id number] Closed 08/26/2020 11/23/2020 1 1 Encounter Details Date Type Department Care Team (Late st Contact Info) Description 11/05/2020 1:47 PM EDT - 11/05/2020 11:59 PM EDT Hospital Encounter [facility] MRI [address] [place] [address] Artemio Hudson MD [address] [place] [address] Spinal cord tumor Discharge Disposition: Home or Self Care Social [...] Inhale 2 puffs As Needed for Wheezing. cyanocobalamin 1000 MCG/ML injection INJECT 1 ML [...] Take 1 tablet by mouth Every Night. rOPINIRole (REQUIP) 5 MG tablet Take 1 tablet by mouth Every Night. Take 1 hour before bedtime. ZOLMitriptan (ZOMIG) 5 MG tablet Take 1 [...] three times a day 09/28/2015 09/05/19 24 meclizine (ANTIVERT) 12.5 MG tablet Take 1 tablet by mouth 3 (Three) Times a Day As Needed for Dizziness. 01/23/20 24 minocycline (MINOCIN,DYNACI N) 100 MG capsule Take 100 mg by mouth daily. 12/07/19 22 omeprazole (PriLOSEC) 20 MG capsule Take 20 mg by mouth daily. 11/11/19 21 traMADol (ULTRAM) 50 MG tablet Take 50 mg by mouth 3 (three) times a day as needed for moderate pain (4-6). 0 23 traZODone (DESYREL) 50 MG tablet Take 50 mg by mouth Every Night. 11/11/19 21 documented as of this encounter Plan of Treatment Upcoming Encounters Date Type Department Care Team (Late st Contact Info) Description 03/10/2024 11:30 AM EST Office Visit [facility] RHEUMATOLOGY [address] [facility] [address] [place] [address] Ivan Alvarado DO [address] [facility] [address] [place] [address] 04/24/2024 10:50 AM EST Office Visit [facility] ORTHOPEDICS & SPORTS MEDICINE [address] [facility] [address] [place] [address] Solomon Aguilar MD [address] [facility] [address] [place] [address] documented as of this encounter Procedures Procedure Name Priority Date/Time Associated Diagnosis Comments MRI THORACIC SPINE W WO CONTRAST Routine 11/05/2020 3:00 PM EDT Spinal cord tumor POCT CREATININE Routine 11/05/2020 2:28 PM EDT documented in this encounter Results * MRI Thoracic Spine With & Without Contrast (11/05/2020 3:00 PM EDT) Anatomical Region Laterality Modality Spine, T-spine N/A Magnetic Resonan ce 11/05/2020 3:20 PM EDT Impressions 11/06/2020 9:57 PM EDT Stable appearance of the thoracic spine including focal dorsal tethering of the thoracic cord at T5-6 and mild myelomalacic change. No new or progressive abnormality is appreciated. DICTATED: ?? 11/05/2020 EDITED/ls : ?? 11/05/2020 This report was finalized on 11/06/2020 9:[address] Cyrus Jesus MD. 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 TECHNIQUE: Sagittal T1 and T2 STIR axial T1 and T2, post gadolinium contrast sagittal and axial T1-weighted views of the thoracic spine COMPARISON: 06/03/2019 thoracic spine MRI. FINDINGS: Previous exam report indicates stable appearance of the thoracic cord with tethering and postsurgical change in the midthoracic spine and no evidence of tumor recurrence. Dorsal deviation of the thoracic cord at T5-6 is again noted, as on prior study. Sagittal images give the appearance of some focal cord thinning on the STIR series, not as noticeable on the axial T2 series, and this area appear stable compared to the prior study. Remainder of the thoracic cord appears normal. No mass or mass effect is seen. No compression deformity or vertebral marrow edema is seen. No posterior element edema is seen. Disc spaces are well-maintained. Axial images show mild focal tethering and mild myelomalacic change at this level to be stable. No new intracanalicular disease is identified. There is no evidence of HNP or canal stenosis. Postcontrast images show no evidence of enhancing mass or other pathologic postcontrast enhancement. 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 TECHNIQUE: Sagittal T1 and T2 STIR axial T1 and T2, post gadolinium contrast sagittal and axial T1-weighted views of the thoracic spine COMPARISON: 06/03/2019 thoracic spine MRI. FINDINGS: Previous exam report indicates stable appearance of the thoracic cord with tethering and postsurgical change in the midthoracic spine and no evidence of tumor recurrence. Dorsal deviation of the thoracic cord at T5-6 is again noted, as on prior study. Sagittal images give the appearance of some focal cord thinning on the STIR series, not as noticeable on the axial T2 series, and this area appear stable compared to the prior study. Remainder of the thoracic cord appears normal. No mass or mass effect is seen. No compression deformity or vertebral marrow edema is seen. No posterior element edema is seen. Disc spaces are well-maintained. Axial images show mild focal tethering and mild myelomalacic change at this level to be stable. No new intracanalicular disease is identified. There is no evidence of HNP or canal stenosis. Postcontrast images show no evidence of enhancing mass or other pathologic postcontrast enhancement. IMPRESSION: Stable appearance of the thoracic spine including focal dorsal tethering of the thoracic cord at T5-6 and mild myelomalacic change. No new or progressive abnormality is appreciated. DICTATED: 11/05/2020 EDITED/ls : 11/05/2020 This report was finalized on 11/06/2020 9:[address] Cyrus Jesus MD. Artemio Hudson MD IMG MRI ORDERABLES Final Resu lt * POC Creatinine (11/05/2020 2:28 PM EDT) Creatinine 1.10 0.60 - 1.30 mg/dL 11/07/2020 4:21 AM EDT [facility] Comment:Serial Number: [id number] 5Operator: [id number] Blood 11/05/2020 2:28 PM EDT 11/07/2020 4:21 AM EDT Artemio Hudson MD POINT OF CARE TEST ORDERABLES Final Result [facility]
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 documented in this encounter Administered Medications Inactive Administered Medications - up to 3 most recent administrations Medication Order MAR Action Action Date Dose Rate Site gadobenate dimeglumine (MULTIHANCE) injection 20 mL 20 mL, Intravenous, Once in Imaging, On Sun11/05/20 at 1500, For 1 dose, Vesicant; admin as rapid bolus; flush with 5 mL NS after admin or 20 mL for renal or aortoiliofemoral vasculature Given 11/05/2020 2:58 PM EDT 20 mL documented in this encounter Care Teams Game Protector Relationship Specialty Start Date End Date Afua Hurley DO [address] [place] [address] PCP - General Family Medicine 10/14/15 documented as of this encounter
--- OUTSIDE RECORDS SUMMARY | 2024-02-24 15:58 | XMS_ITS | Clinical Summary ---
[facility] Address [address] [place] [address] Care Team Providers Care Hourly Sales Staff Name Role Phone Afua Hurleygh Primary Care Provider [phone] [phone] Allergies No known active allergies Medications montelukast (SINGULAIR) 10 MG tablet Take 1 tablet by mouth Every Night. Active ZOLMitriptan (ZOMIG) 5 MG tablet Take 1 tablet by mouth 1 (One) Time As Needed for Migraine. Active albuterol (PROVENTIL HFA;VENTOLIN HFA) 108 (90 BASE) MCG/ACT inhaler Inhale 2 puffs As Needed for Wheezing. Active fluticasone (FLONASE) 50 MCG/ACT nasal spray Administer 2 sprays into the nostril(s) as directed by provider Daily. Administer 2 sprays in each nostril for each dose. Active rOPINIRole (REQUIP) 5 MG tablet Take 1 tablet by mouth Every Night. Take 1 hour before bedtime. Active amitriptyline (ELAVIL) 10 MG tablet Take 1 tablet by mouth Every Evening. 11/09/19 21 Active cyanocobalamin 1000 MCG/ML injection INJECT 1 ML INTRAMUSCULARLY ONCE EVERY MONTH 08/11/19 21 Active fexofenadine (YAEL) 180 MG tablet Take 1 tablet by mouth every night at bedtime. 09/17/19 21 Active losartan (COZAAR) 25 MG tablet Take 1 tablet by mouth Daily. 11/06/19 21 Active spironolactone (ALDACTONE) 25 MG tablet Take 1 tablet by mouth Every Morning. 11/09/19 21 Active pantoprazole (PROTONIX) 40 MG EC tablet Take 1 tablet by mouth 2 (Two) Times a Day. Active vitamin D3 125 MCG (5000 UT) capsule capsule Take 1 capsule by mouth Daily. Active celecoxib (CeleBREX) 200 MG capsule Take 1 capsule by mouth 2 (Two) Times a Day As Needed for Mild Pain. 60 capsule 6 09/05/19 24 Active cyclobenzaprine (FLEXERIL) 10 MG tablet Take 0.5 tablets by mouth 3 (Three) Times a Day As Needed for Muscle Spasms. 90 tablet 09/05/19 24 Active DULoxetine (CYMBALTA) 60 MG capsule Take 1 capsule by mouth 2 (Two) Times a Day. 60 capsule 6 09/05/19 24 Active gabapentin (NEURONTIN) 600 MG tabletIndications :Fibromyalgia,Alyse benji osteoarthritis involving multiple joints,NSAID long-term use,High risk medication use Take 2 tablets by mouth 3 (Three) Times a Day. Take 2 tablets by mouth three times a day 180 tablet 09/05/19 24 Active hydrocortisone (CORTEF) 5 MG tablet TAKE 2 TABLETS BY MOUTH IN THE MORNING AND 1 AT NOON 05/21/19 24 Active levothyroxine (SYNTHROID, LEVOTHROID) 50 MCG tablet Take 1 tablet by mouth Every Morning. 08/14/19 24 Active Semaglutide,0.25 or 0.5MG/DOS, (Ozempic, 0.25 or 0.5 MG/DOSE,) 2 MG/3ML solution pen-injector Inject under the skin into the appropriate area as directed Every 7 (Seven) Days. Active ciprofloxacin (CIPRO) 500 MG tablet Take 1 tablet by mouth Every 12 (Twelve) Hours. 01/21/20 24 Active fluconazole (DIFLUCAN) 150 MG tablet 1 tablet. 01/22/20 24 Active folic acid (FOLVITE) 1 MG tablet Take 1 tablet by mouth Daily. 01/20/20 24 Active Ozempic, 1 MG/DOSE, 4 MG/3ML solution pen-injector Inject 1 mg under the skin into the appropriate area as directed 1 (One) Time Per Week. 01/13/20 24 Active Active Problems Problem Noted Date Diagnosed Date Osteoarthritis 09/04/2023 Assessment & Plan (09/05/2023 12:08 PM EDT): 1. Weight loss would be helpful 2. [...] pump installed 18. She had shoulder surgery. Fibromyalgia 12/06/2021 Assessment & Plan (09/05/2023 12:08 PM EDT): * Medications/treatments tried included: Celebrex, Cymbalta, Baclofen, She saw pain management, Back injections, Rhizotomy procedures, physical therapy, chiropractor, Tramadol, hydrocodone, Flexeril , She saw [facility] rheumatology (Dr. Bojorquez), Skelaxin, gabapentin, She [...] 18. 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 Autoimmune thyroiditis 07/08/2015 Non-toxic multinodular goiter 07/08/2015 Encounters Date Type Department Care Team Description 01/23/2024 11:55 AM EDT Ancillary Procedure [facility] ORTHOPEDICS & SPORTS MEDICINE [address] [facility] [address] [place] [address] Right hip pain 01/23/2024 11:15 AM EDT Ancillary Procedure [facility] ORTHOPEDICS & SPORTS MEDICINE [address] [facility] [address] [place] [address] 01/23/2024 10:50 AM EDT Office Visit [facility] ORTHOPEDICS & SPORTS MEDICINE [address] [facility] [address] [place] [address] Solomon Aguilar MD Right hip pain (Primary Dx); Primary osteoarthritis of right hip 01/23/2024 Travel 01/22/2024 Travel from Last 3 Months Immunizations Name Administration Dates Next Due COVID-19 (UNSPECIFIED) 03/28/2021,06/26/2020, Influenza, Unspecified 01/31/2021,03/15/2017 Family History Medical History Relation Name Comments Anxiety disorder Daughter Cancer Father Dad Psoriasis Father Dad Anxiety disorder Maternal Aunt Asthma Maternal Grandmother Che Arthritis Mother Mom Breast cancer Mother Mom Cancer Mother Mom Hypertension Mother Mom Miscarriages / Stillbirths Mother Mom Ulcerative colitis Mother Mom Vision loss Mother Mom Anxiety disorder Sister Sis Hypertension Sister Sis Psoriasis Sister Sis Anxiety disorder Son Lamine Relation Name Status Comments Daughter Father Dad Maternal Aunt Maternal Grandmother Che Mother Mom Alive Sister Sis Son Lamine Social History Tobacco Use Types Packs/Day Years [...] on file Sexual Orientation Not on file Last Filed Vital Signs Vital Sign Reading Time Taken Comments Blood Pressure 122/86 01/23/2024 10:52 AM EDT Pulse 102 09/05/2023 11:43 AM EDT Temperature 36.4 ??C (97.5 ??F) 09/05/2023 1 1:43 AM EDT Respiratory Rate 17 11/22/2023 3:16 PM EDT Oxygen Saturation 99% 12/04/2015 4:51 PM EDT Inhaled Oxygen Concentration - - Weight 99.2 kg (218 lb 11.2 oz) 024 10:52 AM EDT Height 163.6 cm (5' 4.41 ) 01/23/2024 1 0:52 AM EDT Body Mass Index 37.06 01/23/2024 10:52 AM EDT Plan of Treatment Upcoming Encounters Date Type Department Care Team (Late st Contact Info) Description 03/10/2024 11:30 AM EST Office Visit [facility] RHEUMATOLOGY [address] [facility] [address] [place] [address] Ivan Alvarado DO [address] [facility] [address] [place], [place] [address] 04/24/2024 10:50 AM EST Office Visit [facility] ORTHOPEDICS & SPORTS MEDICINE [address] [facility] [address] [place] [address] Solomon Aguilar MD [address] [facility] [address] [place] [address] Health Maintenance Due Date Last Done Comments Annual Gynecologic Pelvic and Breast Exam 1962 COLOGUARD 1962 COLON CANCER SCREENING 5 YEAR SIGMOIDOSCOPY 1962 COLONOSCOPY 1962 COLORECTAL CANCER SCREENING 1962 CT COLONOGRAPHY 1962 DXA SCAN 1962 FECAL OCCULT BLOOD TEST 1962 FIT Testing (1 year) 1962 MAMMOGRAM 1962 TDAP/TD VACCINES (1 - Tdap) 1981 ZOSTER VACCINE (1 of 2) 2012 ANNUAL WELLNESS VISIT 09/23/2016 HEPATITIS C SCREENING 09/23/2016 PAP SMEAR 09/23/2016 INFLUENZA VACCINE 11/08/2023 05/02/2023, , 01/31/2021, Additional history exists COVID-19 Vaccine ( season) 2023 11/07/2021, 04/06/2021, 03/28/2021, Additional history exists BMI FOLLOWUP 01/22/2025 01/23/2024, 01/23/2024 Pneumococcal Vaccine 0-64 Aged Out No longer eligible based on patient's age to complete this topic Medical Devices Implanted Type Area Sample Finisher Device Identifier Shelf Expiration Date Model / Serial / Lot Pain Pump-05/19/2022 Implanted:05/19 (Quantity not on file) Pain Pump [employer] 8637 / [id number] / Procedures Procedure Name Priority Date/Time Associated Diagnosis Comments US GUIDED INJECTION Routine 01/23/2024 1 2:23 PM EDT Right hip pain ND ARTHROCENTESIS ASPIR&/INJ MAJOR JT/BURSA W/US Routine 01/23/2024 11:40 AM EDT Primary osteoarthritis of right hip XR HIP W OR WO PELVIS 2-3 VIEW RIGHT Routine 01/23/2024 11:18 AM EDT Right hip pain SCANNED - IMAGING 01/15/2024 from Last 3 Months Results * US Guided Injection (01/23/2024 12:23 PM EDT) Anatomical Region Laterality Modality Ultrasound Narrative 01/23/2024 1:52 PM EDT US GUIDED RIGHT HIP JOINT TORADOL INJECTION Solomon Aguilar MD G US ORDERABLES Final Res ult * ND ARTHROCENTESIS ASPIR&/INJ MAJOR JT/BURSA W/US (01/23/2024 11:40 [...] to verify the correct patient, procedure, equipment, system support administrator and site/side marked as required. Patient was prepped and draped in the usual sterile fashion. us Solomon Aguilar MD PROCEDURE/MINOR SURGICAL OR DERABLES [...] available. Solomon Aguilar MD IMG DIAGNOSTIC IMAGING ORDE RABLES Final Result * IMAGING SCANNED (01/15/2024) Anatomical Region Laterality Modality Radiographic Jennifer ging [facility] IMG DIAGNOSTIC IMAGING ORDERA BLES Final Result from Last 3 Months Insurance [id number] [id number] [facility] MEDIC[facility] A & B Advance Directives * Full Code (Latest Code Status on File) Date Activated Date Inactivated Comments 12/02/2015 10:22 AM 12/04/2015 7:59 PM Care Teams Hourly Sales Staff Relationship Specialty Start Date End Date Afua Hurley DO [address] [place] [address] PCP - General Family Medicine 10/14/15
--- OUTSIDE RECORDS SUMMARY | 2024-02-24 15:58 | XMS_ITS | Encounter Summary ---
[facility] Address [address] [place] [address] Care Team Providers Care Slubber Hand Name Role Phone Afua Hurley DO Primary Care Provider [phone] [phone] Reason for Referral * MRI/CAT/PET Scan (Routine) - Closed Specialty Diagnoses / Procedures Referred By Contac t Referred To Contact Radiology Diagnoses Ependymoma Procedures MRI Thoracic Spine With & Without Contrast Artemio Hudson MD [address] [place] [address] Phone: tel: fax: [facility] MRI [address] [place] [address] Phone: tel: Referral ID Status Reason Start Date Expiration Date Visits Re quested Visits Authorized [id number] Closed 12/07/2022 12/07/2023 1 1 Reason for Visit * MRI/CAT/PET Scan (Routine) - Closed Specialty Diagnoses / Procedures Referred By Contac t Referred To Contact Radiology Diagnoses Ependymoma Procedures MRI Thoracic Spine With & Without Contrast Artemio Hudson MD [address] [place] [address] Phone: tel: fax: [facility] MRI [address] [place] [address] Phone: tel: Referral ID Status Reason Start Date Expiration Date Visits Re quested Visits Authorized [id number] Closed 12/07/2022 12/07/2023 1 1 Encounter Details Date Type Department Care Team (Late st Contact Info) Description 11/21/2023 11:06 AM EDT - 11/21/2023 11:59 PM EDT Hospital Encounter [facility] MRI [address] [place] [address] Artemio Hudson MD [address] [address] [place] [address] Ependymoma Discharge Disposition: Home or Self Care [...] Take 1 tablet by mouth Every Evening. 1 celecoxib (CeleBREX) 200 MG capsule Take 1 capsule by mouth 2 (Two) Times a Day As Needed for Mild Pain. 60 capsule 6 4 cyanocobalamin 1000 MCG/ML injection INJECT 1 ML INTRAMUSCULARLY ONCE EVERY MONTH 1 cyclobenzaprine (FLEXERIL) 10 MG tablet Take 0.5 tablets by mouth 3 (Three) Times a Day As Needed for Muscle Spasms. 90 tablet 5 4 DULoxetine (CYMBALTA) 60 MG capsule Take 1 capsule by mouth 2 (Two) Times a Day. 60 capsule 6 4 fexofenadine (YAEL) 180 MG tablet Take 1 tablet by mouth every night at bedtime. 1 fluticasone (FLONASE) 50 MCG/ACT nasal spray Administer 2 sprays into the nostril(s) as directed by provider Daily. Administer 2 sprays in each nostril for each dose. gabapentin (NEURONTIN) 600 MG tabletIndications:F ibromyalgia,Primary osteoarthritis involving multiple joints,NSAID long-term use,High risk medication use Take 2 tablets by mouth 3 (Three) Times a Day. Take 2 tablets by mouth three times a day 180 tablet 5 4 hydrocortisone (CORTEF) 5 MG tablet TAKE 2 TABLETS BY MOUTH IN THE MORNING AND 1 AT NOON 4 levothyroxine (SYNTHROID, LEVOTHROID) 50 MCG tablet Take 1 tablet by mouth Every Morning. 4 losartan (COZAAR) 25 MG tablet Take 1 tablet by mouth Daily. 1 montelukast (SINGULAIR) 10 MG tablet Take 1 tablet by mouth Every Night. pantoprazole (PROTONIX) 40 MG EC tablet Take 1 tablet by mouth 2 (Two) Times a Day. rOPINIRole (REQUIP) 5 MG tablet Take 1 tablet by mouth Every Night. Take 1 hour before bedtime. Semaglutide,0.25 or 0.5MG/DOS, (Ozempic, 0.25 or 0.5 MG/DOSE,) 2 MG/3ML solution pen-injector Inject under the skin into the appropriate area as directed Every 7 (Seven) Days. spironolactone (ALDACTONE) 25 MG tablet Take 1 tablet by mouth Every Morning. vitamin D3 125 MCG (5000 UT) capsule capsule Take 1 capsule by mouth Daily. ZOLMitriptan (ZOMIG) 5 MG tablet Take 1 tablet by mouth 1 (One) Time As Needed for Migraine. meclizine (ANTIVERT) 12.5 MG tablet Take 1 tablet by mouth 3 (Three) Times a Day As Needed for Dizziness. 01/23/20 24 documented as of this encounter Plan of Treatment Upcoming Encounters Date Type Department Care Team (Late st Contact Info) Description 03/10/2024 11:30 AM EST Office Visit [facility] RHEUMATOLOGY [address] [facility] [address] [place] [address] Ivan Alvarado DO [address] [facility] [address] [place] [address] 04/24/2024 10:50 AM EST Office Visit [facility] ORTHOPEDICS & SPORTS MEDICINE [address] [facility] [address] [place] [address] Solomon Aguilar MD [address] [facility] [address] [place] [address] documented as of this encounter Procedures Procedure Name Priority Date/Time Associated Diagnosis Comments MRI THORACIC SPINE W WO CONTRAST Routine 11/21/2023 12:14 PM EDT Ependymoma documented in this encounter [...] MD 11/21/2023 5:00 PM EDT Workstation ID: [id number] Narrative 11/21/2023 5:00 PM EDT MRI THORACIC [...] MD 11/21/2023 5:00 PM EDT Workstation ID: [id number] Artemio Hudson MD IMG MRI ORDERABLES Final Resu lt documented in this encounter Visit Diagnoses Diagnosis Ependymoma Malignant neoplasm of brain, unspecified site documented in this encounter Administered Medications Inactive Administered Medications - up to 3 most recent administrations Medication Order MAR Action Action Date Dose Rate Site gadobenate dimeglumine (MULTIHANCE) injection 20 mL 20 mL, Intravenous, Once in Imaging, On Sun11/21/23 at 1217, For 1 dose, Vesicant; admin as rapid bolus; flush with 5 mL NS after admin or 20 mL for renal or aortoiliofemoral vasculature Given 11/21/2023 12:36 PM EDT 20 mL documented in this encounter Care Teams Slubber Hand Relationship Specialty Start Date End Date Afua Hurley DO [facility] [place] [address] PCP - General Family Medicine 10/14/15 documented as of this encounter
--- OUTSIDE RECORDS SUMMARY | 2024-02-24 15:58 | XMS_ITS | Encounter Summary ---
Author Organization [facility] [employer] Address [address] [place] [address] Care Team Providers Care Glass Fitter Name Role Phone Mei Afuajenifer Dejesusgh Primary Care Provider [phone] Encounter Details Date Type Department Care Team (Late st Contact Info) Description 09/05/2023 12:20 PM EDT Lab [facility] [address] [place] [address] Fibromyalgia; Primary osteoarthritis involving multiple joints; NSAID long-term [...] Description 03/10/2024 11:30 AM EST Office Visit [facility] RHEUMATOLOGY [address] [facility] [address] [place] [id number] Ivan Alvarado DO [address] [facility] [address] [place] [address] 04/24/2024 10:50 AM EST Office Visit [facility] ORTHOPEDICS & SPORTS MEDICINE [address] [facility] [address] [place] [id number] Solomon Aguilar MD [address] [facility] [address] [place] [address] documented as of this encounter Procedures Procedure Name Priority Date/Time Associated Diagnosis Comments URINE DRUG SCREEN Routine 09/05/2023 12: 19 PM EDT Fibromyalgia Primary osteoarthritis involving multiple joints NSAID long-term use High risk medication use FENTANYL, URINE Routine 09/05/2023 12:19 PM EDT Fibromyalgia Primary osteoarthritis involving multiple joints NSAID long-term use High risk medication use documented in this encounter Results * Fentanyl, Urine - Urine, Clean Catch (09/05/2023 12:19 PM EDT) Fentanyl, Urine Negative Negative 09/05/2023 5:24 PM EDT [facility] Urine Urine specimen obtained by clean catch procedure / Unknown Collection / Unknown 09/05/2023 12:19 PM EDT 09/05/2023 12:19 PM EDT Narrative [facility] - 09/05/2023 5:24 PM EDT Negative Threshold: ?? Fentanyl 5 ng/mL The normal value for the drug tested is negative. This report includes final unconfirmed screening results to be used for medical treatment purposes only. Unconfirmed results must not be used for non-medical purposes such as employment or legal testing. Clinical consideration should be applied to any drug of abuse test, particularly when unconfirmed results are used. ? Ivan Alvarado DO URINE ORDERABLES Final Result [facility]
[address] [place] [address], * (ABNORMAL) Urine Drug Screen - Urine, Clean Catch (09/05/2023 12:19 PM EDT) THC, Screen, Urine Negative Negative 2023 5:06 PM EDT [facility] Phencyclidine (PCP), Urine Negative Negative 09/05/2023 5:06 PM EDT [facility] Cocaine Screen, Urine Negative Negative 09/05/2023 5:06 PM EDT [facility] Methamphetamine, Ur Negative Negative 09/05/2023 5:06 PM EDT [facility] Opiate Screen Positive(A) Negative 09/05/2023 5:06 PM EDT [facility] Amphetamine Screen, Urine Negative Negative 09/05/2023 5:06 PM EDT [facility] Benzodiazepine Screen, Urine Negative Negative 09/05/2023 5:06 PM EDT [facility] Tricyclic Antidepressants Screen Positive(A) Negative 09/05/2023 5:06 PM EDT [facility] Methadone Screen, Urine Negative Negative 09/05/2023 5:06 PM EDT [facility] Barbiturates Screen, Urine Negative Negative 09/05/2023 5:06 PM EDT [facility] Oxycodone Screen, Urine Negative Negative 09/05/2023 5:06 PM EDT [facility] Buprenorphine, Screen, Urine Negative Negative 09/05/2023 5:06 PM EDT [facility] Urine Urine specimen obtained by clean catch procedure / Unknown Collection / Unknown 09/05/2023 12:19 PM EDT 09/05/2023 12:19 PM EDT [facility] - 09/05/2023 5:06 PM EDT Cutoff [...] Ivan Alvarado DO URINE ORDERABLES Final Result [facility]
[address] [place] [address], documented in this encounter Visit Diagnoses Diagnosis Fibromyalgia Unspecified myalgia and myositis Primary osteoarthritis involving multiple joints NSAID long-term use Encounter for long-term (current) use of non-steroidal anti-inflammatories High risk medication use documented in this encounter Care Teams Glass Fitter Relationship Specialty Start Date End Date Afua Hurley DO [address] [place] [address] PCP - General Family Medicine 10/14/15 documented as of this encounter
--- OUTSIDE RECORDS SUMMARY | 2024-02-24 15:59 | XMS_ITS | Encounter Summary ---
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 Role Phone Unavailable Primary Care Provider Unavailabl e Encounter Details Date Type Department Care Team (Late st Contact Info) Description 03/11/2020 Transcribed Document [facility] [place] [address] [place] [address] ProviderUlises [place] [address] Social History Tobacco Use Types Packs/Day Years Used Date Smoking Tobacco: Never Assessed Comments Unknown Sex and Gender Information Value Date Recorded Sex Assigned at Female 10/06/2021 11:59 AM CDT Legal Sex Female 7:14 PM CDT Gender Identity Female 10/06/2021 11:59 AM CDT Sexual Orientation Not on file documented as of this encounter Miscellaneous Notes * Cerner Conversion Note - Ulises Shaver MD - 03/11/2020 9:25 AM MENAGERIE SUPERINTENDENT Patient Education Materials Follows: Outpatient Surgery, Adult, Care After These instructions provide you with information about caring for yourself after your procedure. Your health care provider may also give you more specific instructions. Your treatment has been planned according to current medical practices, but problems sometimes occur. Call your health care provider if you have any problems or questions after your procedure. What can I expect after the procedure? After the procedure, it is common to have: ??? Tenderness and numbness at the surgical site. ??? Swelling and bruising around the surgical site. ??? Nausea. Follow these instructions at home: For at least 24 hours after the procedure: ??? Have a responsible adult stay with you. It is important to have someone help care for you until you are awake and alert. ??? Rest as needed. ??? Do not: ? Participate in activities in which you could fall or become injured. ? Drive. ? Use heavy machinery. ? Drink alcohol. ? Take sleeping pills or medicines that cause drowsiness. ? Make important decisions or sign legal documents. ? Take care of children on your own. Activity ??? Return to your normal activities as told by your health care provider. Ask your health care provider what activities are safe for you. ??? Do not lift anything that is heavier than 10 lb (4.5 kg), or the limit that your health care provider tells you, until your health care provider says it is okay. ??? Do not play contact sports until your health care provider says it is okay. Incision care ??? Follow instructions from your health care provider about how to take care of an incision, if you have one. Make sure you: ? Wash your hands with soap and water before you change your bandage (dressing). If soap and water are not available, use hand kid club attendant. ? Change your dressing as told by your health care provider. ? Leave stitches (sutures), skin glue, or adhesive strips in place. These skin closures may need to stay in place for 2 weeks or longer. If adhesive strip edges start to loosen and curl up, you may trim the loose edges. Do not remove adhesive strips completely unless your health care provider tells you to do that. ??? Check your incision area every day for signs of infection. Check for: ? More redness, swelling, or pain. ? More fluid or blood. ? Warmth. ? Pus or a bad smell. Medicines ??? Take yqnn-[id number] and prescription medicines only as told by your health care provider. ??? Do not drive or use heavy machinery while taking prescription pain medicines. Eating and drinking ??? Follow the diet recommended by your health care provider. ??? When you are hungry, begin eating light and bland foods such as toast. Gradually return to your regular diet. ??? If you vomit: ? Drink water, juice, or soup when you can drink without vomiting. ? Make sure you have little or no nausea before eating solid foods. General instructions ??? If you have sleep apnea, surgery and certain medicines can increase your risk for breathing problems. Follow instructions from your HCP about wearing your sleep device: ? Anytime you are sleeping, including during daytime naps. ? While taking prescription pain medicines, sleeping medicines, or medicines that make you drowsy. ??? Do not use any tobacco products, such as cigarettes, chewing tobacco, and e-cigarettes, for as long as possible. ??? If you smoke, do not smoke without supervision. ??? Keep all follow-up visits as told by your health care provider. This is important. Contact a health care provider if: ??? You have more redness, swelling, or pain around your incision. ??? You have more fluid or blood coming from your incision. ??? Your incision feels warm to the touch. ??? You have pus or a bad smell coming from your incision. ??? You have a fever. ??? You feel light-headed or you faint. ??? You develop a rash. ??? You keep feeling nauseous or keep vomiting. ??? You have very bad pain, even after taking the medicines your health care provider has prescribed or recommended. ??? You have constipation. Get help right away if: ??? You are unable to pass urine. ??? You have trouble breathing. Summary ??? Have a responsible adult stay with you for at least 24 hours after the procedure. ??? Nausea is common after a procedure. Make sure you have little or no nausea before eating solid foods. Follow the diet recommended by your health care provider. ??? Ask your health care provider what activities are safe for you. This information is not intended to replace advice given to you by your health care provider. Make sure you discuss any questions you have with your health care provider. Document Released: 07/16/2016 Document Revised: 06/24/2018 Document Reviewed: 07/16/2016 [employer] Patient Education ? 2020 [employer]. documented in this encounter Plan of Treatment Not on file documented as of this encounter Visit Diagnoses Not on filedocumented in this encounter
--- OUTSIDE RECORDS SUMMARY | 2024-02-24 15:59 | XMS_ITS | Encounter Summary ---
Author Organization [facility] Address [address] [place] [id number] Care Team Providers Care French Cord Binder Name Role Phone Afua Hurley Primary Care Provider [phone] Reason for Referral * (Routine) - Closed Specialty Diagnoses / Procedures Referred By Contac t Referred To Contact Procedures Diet: Artemio Hudson MD [address] [place] [address] Phone: tel: fax: Referral ID Status Reason Start Date Expiration Date Visits Re quested Visits Authorized [id number] Closed 12/04/2015 06/01/2016 1 1 Reason for Visit * Auth/Cert Specialty Diagnoses / Procedures Referred By Contac t Referred To Contact Diagnoses Spinal cord tumor 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] Procedures 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 Referral ID Status Reason Start Date Expiration Date Visits Re quested Visits Authorized [id number] 1 1 Encounter Details Date Type Department Care Team (Late st Contact Info) Description 12/02/2015 5:53 AM EDT - 12/04/2015 5:58 PM EDT Hospital Encounter [address] [place] [address] [phone] Artemio Hudson MD [address] [place] [address] Spinal cord tumor Discharge Disposition: Home or [...] Sign Reading Time Taken Comments Blood Pressure 126/74 12/04/2015 4:51 PM EDT Pulse 84 12/04/2015 4:51 PM EDT Temperature 36.4 ??C (97.6 ??F) 12/04/2015 4:51 PM ED T Respiratory Rate 16 12/04/2015 4:51 PM EDT Oxygen Saturation 99% 12/04/2015 4:51 PM EDT Inhaled Oxygen Concentration - - Weight 90 kg (198 lb 6.6 oz) 12/02/2015 6:23 AM EDT Height 162.6 cm (5' 4 ) 12/02/2015 6:23 AM EDT Body Mass Index 34.06 12/02/2015 6:23 AM EDT documented in this encounter Discharge Summaries * Bg Aj PA-C - 12/04/2015 5:58 PM EDT Date of Discharge: 12/04/2015 Discharge Diagnosis: Thoracic ependymoma Procedures Performed Procedure(s): 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 Presenting Problem/History of Present Illness 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 female presented with a 1 year history of back pain. Studies have revealed a well-circumscribed intramedullary tumor at T5-6 level. On 12/02/2015 she underwent T5-T6 laminectomiesfor resection of intramedullary spinal cord tumor. Intraoperative monitoring with somatosensory evoked potentials and motor evoked potentials was performed. She was taken to the recovery room in stable and satisfactory condition. Her vital signs remained stable. She was transferred to the medical floor for further observation. On the first morning postoperatively she had been ambulatory in the herrera with her walker. Physical therapy and occupational therapy consult to assist with ambulation. She initially had complaints of numbness and aesthesias involving her legs that with time this seemed to be dissipating. Motor function remained in the order of 5 out of 5 in her lower extremities. She denied any weakness or voidingdifficulties. She will be discharged home in stable and satisfactory condition. She has been provided a prescription for a rolling walker. Discharge Disposition Home or Self Care Discharge Medications Sue Cardona Home Medication Instructions CHRISTIE:[id number] Printed on:12/07/15 1023 Medication Information albuterol (PROVENTIL HFA;VENTOLIN HFA) 108 (90 BASE) MCG/ACT inhaler Inhale 2 puffs as needed for wheezing. baclofen (LIORESAL) 20 MG tablet Take 20 mg by mouth 2 (two) times a day. 8AM AND 3PM celecoxib (CeleBREX) 200 MG capsule Take 200 mg by mouth 2 (two) times a day. cyclobenzaprine (FLEXERIL) 10 MG tablet Take 5 mg by mouth every night. dexamethasone (DECADRON) 2 MG tablet Take 1 tablet by mouth 3 (three) times a day. 1 tid for 3 days, then 1 bid for 3 days, then 1 dailyfor 3 days then discontinue. DULoxetine (CYMBALTA) 60 MG capsule Take 60 mg by mouth 2 (two) times a day. fluticasone (FLONASE) 50 MCG/ACT nasal spray 2 sprays into each nostril daily. Administer 2 sprays in each nostril for each dose. gabapentin (NEURONTIN) 600 MG tablet Take 600 mg by mouth 3 (three) times a day. minocycline (MINOCIN,DYNACIN) 100 MG capsule Take 100 mg by mouth daily. montelukast (SINGULAIR) 10 MG tablet Take 10 mg by mouth every night. omeprazole (PriLOSEC) 20 MG capsule Take 20 mg by mouth daily. oxyCODONE-acetaminophen (PERCOCET) 5-325 MG per tablet Take 1 tablet by mouth 3 (three) times a day as needed for moderate pain (4-6) for up to 8 days. traMADol (ULTRAM) 50 MG tablet Take 50 mg by mouth 3 (three) times a day as needed for moderate pain (4-6). ZOLMitriptan (ZOMIG) 5 MG tablet Take 5 mg by mouth 1 (one) time as needed for migraine. Activity at Discharge: Activity Instructions Discharge Activity Ambulate frequently at home with rolling walker. No reaching, lifting, pulling until follow-up. No driving until follow-up. Follow-up Appointments Future Appointments Date Time Provider Department Center 12/14/2015 2:30 PM Bg Aj PA-C [facility] None Referrals and Follow-ups to Schedule Return to Clinic for Follow Up As directed Follow-up with Ms. Jean Marie FELIPE in the office in approximately 10-12 days for suture removal. Test Results Pending at Discharge Bg Aj PA-C 12/07/15 4:55 PM Cosigned by Artemio Hudson MD at 12/07/2015 5:08 PM EDT documented in this encounter Discharge Instructions * Attachments The following attachments cannot be sent through Care Everywhere. * LAMINECTOMY (COLOMBIAN) * ACETAMINOPHEN; OXYCODONE TABLETS (COLOMBIAN) * WALKER USE (COLOMBIAN) documented in this encounter Medications at Time of Discharge albuterol (PROVENTIL HFA;VENTOLIN HFA) 108 (90 BASE) MCG/ACT inhaler Inhale 2 puffs As Needed for Wheezing. fluticasone (FLONASE) 50 MCG/ACT nasal spray Administer 2 sprays into the nostril(s) as directed by provider Daily. Administer 2 sprays in each nostril for each dose. montelukast (SINGULAIR) 10 MG tablet Take 1 tablet by mouth Every Night. ZOLMitriptan (ZOMIG) 5 MG tablet Take 1 tablet by mouth 1 (One) Time As Needed for Migraine. oxyCODONE-acetam inophen (PERCOCET) 5-325 MG per tablet Take 1 tablet by mouth 3 (three) times a day as needed for moderate pain (4-6) for up to 8 days. 60 tablet 12/04/2015 6 baclofen (LIORESAL) 20 MG tablet Take 20 mg by mouth 2 (two) times a day. 8AM AND 3PM 7 celecoxib (CeleBREX) 200 MG capsule Take 1 capsule by mouth 2 (Two) Times a Day. 4 cyclobenzaprine (FLEXERIL) 10 MG tablet Take 5 mg by mouth every night. 3 dexamethasone (DECADRON) 2 MG tablet Take 1 tablet by mouth 3 (three) times a day. 1 tid for 3 days, then 1 bid for 3 days, then 1 daily for 3 days then discontinue. 20 tablet 12/04/2015 6 DULoxetine (CYMBALTA) 60 MG capsule Take 1 capsule by mouth 2 (Two) Times a Day. 4 gabapentin (NEURONTIN) 600 MG tablet Take 1 tablet by mouth 3 (Three) Times a Day. Take 2 tablets by mouth three times a day 09/28/2015 4 minocycline (MINOCIN,DYNACIN ) 100 MG capsule Take 100 mg by mouth daily. 2 omeprazole (PriLOSEC) 20 MG capsule Take 20 mg by mouth daily. 1 traMADol (ULTRAM) 50 MG tablet Take 50 mg by mouth 3 (three) times a day as needed for moderate pain (4-6). 3 documented as of this encounter Progress Notes * Artemio Hudson MD - 12/04/2015 7:57 AM EDT NEUROSURGERY PROGRESS NOTE LOS: 2 days Patient Care Team: Afua Hurley DO as PCP - General (Family Medicine) Ivan Alvarado DO as Referring Physician (Rheumatology) Zay Ramos MD as Consulting Physician (Anesthesiology) Yaquelin Cortez as Consulting Physician (Endocrinology) Chief Complaint: Intramedullary spinal cord tumor. POD#: 2 Procedures: T5 and T6 laminectomies for resection of intramedullary spinal cord tumor. Interval History: Patient Complaints: Sensory alteration from the inguinal level down in the legs, more so in the feet. Patient Denies: Voiding difficulties or headache. Vital Signs: Blood pressure 139/87, pulse 86, temperature 98.2 ??F (36.8 ??C), temperature source Axillary, resp. rate 18, height 64 (162.6 cm), weight 198 lb 6.6 oz (90 kg), SpO2 94 %, not currently . Intake/Output: Intake/Output Summary (Last 24 hours) at 12/04/15 0757 Last data filed at 12/04/15 0100 Gross per 24 hour Intake 800 ml Output 2400 ml Net -1600 ml Physical Exam: Patient is awake, alert, and in no acute distress. Incision has a dry dressing in place. Motor function is intact. Assessment/Plan: 1. Status post T5 and T6 laminectomies for resection of intramedullary spinal cord tumor. Pathologyis pending. Probable ependymoma based on preliminary results. The lesion appears to be low-grade without aggressive features. 2. Disposition: Home today. The patient has already been provided a rolling walker. Sutures out in about 10 days at which time we will institute physical therapy. Artemio Hudson MD 12/04/15 7:57 AM * Donna Cesar V - 12/03/2015 9:35 AM EDT Discharge Planning Assessment [facility] Patient Name: Sue Cardona Today's Date: 12/03/2015 Admit Date: 12/02/2015 Discharge Needs Assessment 12/03/15921 Living Environment Lives With spouse Quality Of Family Relationships supportive Able to Return to Prior Living Arrangements yes Living Arrangement Comments Ms. Cardona lives with her in a two story home in [facility]. Discharge Needs Assessment Readmission Within The Last 30 Days no previous admission in last 30 days Equipment Currently Used at Home none Equipment Needed After Discharge walker, rolling Transportation Available car;family or friend will provide Discharge Disposition -- Outpatient physical therapy at [facility] [place], [place]. Discharge Plan 12/03/1506 Case Management/Social Work Plan Patient/Family In Agreement With Plan yes Additional Comments Met with Ms. Cardona at the bedside to initiate discharge planning. Ms. Cardona is independent with her ADL's. She said that she would like to have a rolling walker and had no preference for provider. CM contacted [facility] and they are to deliver the walker to the bedside today. Ms. Cardona would also like to go to outpatient physical therapy with [facility]. Please provide a prescription for PT at discharge if agreeable. Thank you. CM will continue tofollow. 08/26/16 0926 Case Management/Social Work Plan Plan Home Discharge Placement No information found Demographic Summary 12/03/15 0916 Referral Information Admission Type inpatient Reason For Consult discharge planning Contact Information Permission Granted to Share Information With case management specialistinsurance agency manager Physician Information Name Afua Hurley in [place], [place]. Functional Status 12/03/15 0917 Functional Status Prior Ambulation 0-->independent Transferring 0-->independent Toileting 0-->independent Bathing 0-->independent Dressing 0-->independent Eating 0-->independent Communication 0-->understands/communicates without difficulty Swallowing 0-->swallows foods/liquids without difficulty IADL Medications independent Meal Preparation independent Housekeeping independent Laundry independent Shopping independent Oral Care independent Cognitive/Perceptual/Developmental Current Mental Status/Cognitive Functioning no deficits noted Employment/Financial Employment/Finance Comments Ms. Cardona does have prescription drug coverage. 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 Psychosocial None Abuse/Neglect None Legal None Substance Abuse 12/03/15 0921 Substance Use, Patient Substance Use never used Patient Forms None Donna Cesar * Artemio Hudson MD - 12/03/2015 7:27 AM EDT NEUROSURGERY PROGRESS NOTE LOS: 1 day Patient Care Team: Afua Hurley DO as PCP - General (Family Medicine) Ivan Alvarado DO as Referring Physician (Rheumatology) Zay Ramos MD as Consulting Physician (Anesthesiology) Yaquelin Cortez as Consulting Physician (Endocrinology) Chief Complaint: Intramedullary thoracic spinal cord tumor POD#: 1 Procedures: T5 and T6 laminectomies for resection of intramedullary spinal cord tumor. Interval History: Patient is ambulated in the herrera with a walker this morning. Patient Complaints: Incisional pain as well as numbness and dysesthesias involving her legs which seems to be dissipating. Patient Denies: Weakness or voiding difficulties. Vital Signs: Blood pressure 114/65, pulse 80, temperature 96.3 ??F (35.7 ??C), temperature source Tympanic, resp. rate 18, height 64 (162.6 cm), weight 198 lb 6.6 oz (90 kg), SpO2 98 %, not currently . Intake/Output: Intake/Output Summary (Last 24 hours) at 12/03/15 0728 Last data filed at 12/03/15 0000 Gross per 24 hour Intake 2700 ml Output 1945 ml Net 755 ml Physical Exam: The patient is awake, alert, in good spirits. Dry dressing is in place on incision. Motor function is 5/5 in lower extremities. Assessment/Plan: 1. Status post T5 and T6 laminectomies for resection of intramedullary spinal cord tumor. Pathologyis pending. 2. Disposition: Mobilize, home in the next couple of days. Artemio Hudson MD 12/03/15 7:28 AM documented in this encounter H&P Notes * Kierra Herrera PA - 12/02/2015 6:51 AM EDT Patient Care Team: Chief complaint : 1 year hx of demetrio. Leg tingling and weakness Subjective: Here today for resection of spinal tumor Patient is a 55 y.o.female presents with thoracic spinal tumor Review of Systems: General ROS: negative, denies recent fever or chills Cardiovascular ROS: negative Respiratory ROS: positive for hx of asthma Allergies: No Known Allergies Latex: no Contrast Dye: No Home Meds Prescriptions Prior to Admission Medication Sig Dispense Refill Last Dose ??? albuterol (PROVENTIL HFA;VENTOLIN HFA) 108 (90 BASE) MCG/ACT inhaler Inhale 2 puffs as needed for wheezing. 12/01/2015 at 2330 ??? baclofen (LIORESAL) 20 MG tablet Take 20 mg by mouth 2 (two) times a day. 8AM AND 3PM 12/01/2015at 1500 ??? celecoxib (CeleBREX) 200 MG capsule Take 200 mg by mouth 2 (two) times a day. 12/01/2015 at 2129 ??? cyclobenzaprine (FLEXERIL) 10 MG tablet Take 5 mg by mouth every night. 12/01/2015 at 2200 ??? DULoxetine (CYMBALTA) 60 MG capsule Take 60 mg by mouth 2 (two) times a day. 12/01/2015 at 2129 ??? gabapentin (NEURONTIN) 600 MG tablet Take 600 mg by mouth 3 (three) times a day. 12/01/2015 at 1800 ??? traMADol (ULTRAM) 50 MG tablet Take 50 mg by mouth 3 (three) times a day as needed for moderatepain (4-6). 12/01/2015 at 1600 ??? ZOLMitriptan (ZOMIG) 5 MG tablet Take 5 mg by mouth 1 (one) time as needed for migraine. Past Month at Unknown time ??? fluticasone (FLONASE) 50 MCG/ACT nasal spray 2 sprays into each nostril daily. Administer 2 sprays in each nostril for each dose. 11/29/2015 ??? minocycline (MINOCIN,DYNACIN) 100 MG capsule Take 100 mg by mouth daily. 11/29/2015 ??? montelukast (SINGULAIR) 10 MG tablet Take 10 mg by mouth every night. 11/29/2015 ??? omeprazole (PriLOSEC) 20 MG capsule Take 20 mg by mouth daily. 11/29/2015 PMH: Past Medical History Diagnosis Date ??? Alopecia areata ??? Anxiety ??? Arthritis ??? Asthma ??? Depression ??? Endometriosis ??? Fibromyalgia ??? GERD (gastroesophageal reflux disease) ??? History of migraine headaches ??? IBS (irritable bowel syndrome) ??? Osteoporosis ??? Thyroid disease MIA'S - CONTROLLED AT PRESENT PSH: Past Surgical History Procedure Laterality Date ??? Cholecystectomy ??? Appendectomy ??? Tubal abdominal ligation ??? Keloid excision ??? section x3 ??? Gastric sleeve laparoscopic ??? Toe surgery ??? De quervain's release ??? Carpal tunnel release Bilateral ??? Hysterectomy ??? Nose surgery Immunization History: pneumo: fall 2014 Flu : fall 2014 Tetanus : unknown Social History: Tobacco: former, quit 1985 Alcohol: occasional Physical Exam: Visit Vitals ??? BP 133/85 (BP Location: Right arm, Patient Position: Sitting) ??? Pulse 76 ??? Temp 97.7 ??F (36.5 ??C) (Temporal Artery ) ??? Resp 16 ??? Ht 64 (162.6 cm) ??? Wt 198 lb 6.6 oz (90 kg) ??? SpO2 99% ??? BMI 34.06 kg/m2 General Appearance: Alert, cooperative, no distress, appears stated age Head: Normocephalic, without obvious abnormality, atraumatic Lungs: Clear to auscultation bilaterally, respirations unlabored Heart: Regular rate and rhythm, S1 and S2 normal, no murmur, rub or gallop Abdomen: Soft without tenderness Breast Exam: deferred Genitalia: deferred Extremities: Extremities normal, atraumatic, no cyanosis or edema Skin: Skin color, texture, turgor normal, no rashes or lesions Neurologic: Grossly intact Impression: 55 y/o withT5-T6 spinal tumor Plan: For thoracic laminectomy for tumor resectionj today. FABIEN Giron 12/02/2015 6:52 AM Cosigned by Artemio Hudson MD at 12/02/2015 7:05 AM EDT Associated attestation - Artemio Hudson MD - 12/02/2015 7:05 AM EDT Agree documented in this encounter Nursing Notes * Mag Crabtree RN - 12/04/2015 2:31 PM EDT Problem: Laminectomy/Foraminotomy/Discectomy (Adult) Goal: Signs and Symptoms of Listed Potential Problems Will be Absent or Manageable (Laminectomy/Foraminotomy/Discectomy) Outcome: Ongoing (interventions implemented as appropriate) Problem: Pain, Acute (Adult) Goal: Identify Related Risk Factors and Signs and Symptoms Outcome: Ongoing (interventions implemented as appropriate) Goal: Acceptable Pain Control/Comfort Level Outcome: Ongoing (interventions implemented as appropriate) * Chpais Kerns RN - 12/04/2015 12:19 AM EDT Problem: Pain, Acute (Adult) Intervention: Monitor/Manage Analgesia 12/04/15 0019 Manage Acute Burn Pain Bowel Intervention ambulation promoted;privacy promoted;adequate fluid intake promoted Pain Management Interventions painful stimuli minimized;relaxation techniques promoted;diversional activity encouraged * Chapis Kerns RN - 12/04/2015 12:19 AM EDT Problem: Pain, Acute (Adult) Goal: Acceptable Pain Control/Comfort Level Outcome: Ongoing (interventions implemented as appropriate) 12/04/15 0019 Pain, Acute (Adult) Acceptable Pain Control/Comfort Level making progress toward outcome * Chapis Kerns RN - 12/04/2015 12:18 AM EDT Problem: Pain, Acute (Adult) Goal: Identify Related Risk Factors and Signs and Symptoms Outcome: Ongoing (interventions implemented as appropriate) 12/04/158 Pain, Acute Related Risk Factors (Acute Pain) surgery * Shirley Andersen RN - 12/03/2015 6:00 PM EDT Problem: Patient Care Overview (Adult) Goal: Plan of Care Review Outcome: Ongoing (interventions implemented as appropriate) 12/03/151758 Coping/Psychosocial Response Interventions Plan Of Care Reviewed With patient;spouse Patient Care Overview Progress improving Problem: Laminectomy/Foraminotomy/Discectomy (Adult) Goal: Signs and Symptoms of Listed Potential Problems Will be Absent or Manageable (Laminectomy/Foraminotomy/Discectomy) Outcome: Ongoing (interventions implemented as appropriate) 12/03/15 175 Laminectomy/Foraminotomy/Discectomy Problems Assessed (Laminectomy/Laminotomy/Discectomy) all Problems Present (Laminectomy/Laminotomy/Discectomy) pain * Shirley Andersen RN - 12/02/2015 7:31 PM EDT Problem: Patient Care Overview (Adult) Goal: Plan of Care Review Outcome: Ongoing (interventions implemented as appropriate) 12/02/15 1931 Coping/Psychosocial Response Interventions Plan Of Care Reviewed With patient;spouse Patient Care Overview Progress improving Problem: Perioperative Period (Adult) Goal: Signs and Symptoms of Listed Potential Problems Will be Absent or Manageable (Perioperative Period) Outcome: Ongoing (interventions implemented as appropriate) 12/02/15 1931 Perioperative Period Problems Assessed (Perioperative Period) all Problems Present (Perioperative Period) pain * Shirley Andersen RN - 12/02/2015 2:40 PM EDT Problem: Patient Care Overview (Adult) Goal: Plan of Care Review Outcome: Ongoing (interventions implemented as appropriate) 12/02/15 1440 Coping/Psychosocial Response Interventions Plan Of Care Reviewed With patient;spouse Patient Care Overview Progress improving Problem: Perioperative Period (Adult) Goal: Signs and Symptoms of Listed Potential Problems Will be Absent or Manageable (Perioperative Period) Outcome: Ongoing (interventions implemented as appropriate) 12/02/15 1440 Perioperative Period Problems Assessed (Perioperative Period) all Problems Present (Perioperative Period) pain * Janey Jones RN - 12/02/2015 6:30 AM EDT Problem: Patient Care Overview (Adult) Goal: Discharge Needs Assessment Outcome: Ongoing (interventions implemented as appropriate) * Janey Jones RN - 12/02/2015 6:30 AM EDT Problem: Patient Care Overview (Adult) Goal: Adult Individualization and Mutuality Outcome: Ongoing (interventions implemented as appropriate) * Janey Jones RN - 12/02/2015 6:30 AM EDT Problem: Patient Care Overview (Adult) Goal: Plan of Care Review Outcome: Ongoing (interventions implemented as appropriate) * Janey Jones RN - 12/02/2015 6:28 AM EDT Problem: Perioperative Period (Adult) Goal: Signs and Symptoms of Listed Potential Problems Will be Absent or Manageable (Perioperative Period) Outcome: Ongoing (interventions implemented as appropriate) documented in this encounter OR Notes * Brief Op Note - Artemio Hudson MD - 12/02/2015 10:14 AM EDT LUMBAR SPINAL TUMOR REMOVAL Procedure Note Sue Garcia Brendan 12/02/2015 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 Codes: Procedure(s): 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 Surgeon(s): MD Solomon Alston MD Anesthesia: General Staff: Resident Care Aid: Miay Moses RN; Nimco Varghese RN Compressor Assembler: Artemio Naik, Scrub Person: Jennifer Boss; Sal [place] Meter Repair Shop Supervisor: Susana Willard Raiser Helper: Bg Aj PA-C Estimated Blood Loss: 150 mL Specimens: ID Type Source Tests Collected by Time Destination A : SPINAL CORD TUMOR Tissue Spine, Lumbar TISSUE EXAM Artemio Hudson MD 12/02/2015 09 B : TUMOR FOR PERMANENT Tissue Spine, Lumbar TISSUE EXAM Artemio Hudson MD 12/02/2015 0906 C : sonapet aspirate Tissue Spine, Thoracic TISSUE EXAM Artemio Hudson MD 12/02/2015 0936 Drains: Urethral Catheter 12/02/15 0715 100% silicone;silver hydrogel antimicrobial coated 16 10 (Active) Irrigation Return yellow;clear 12/02/2015 7:54 AM Catheter care done Yes 12/02/2015 7:54 AM Findings: Intramedullary spinal cord tumor Complications: None. Artemio Hudson MD Date: 12/02/2015 Time: 10:14 AM * Op Note - Artemio Hudson MD - 12/02/2015 5:53 AM EDT DATE OF PROCEDURE: 12/02/2015 PREOPERATIVE DIAGNOSIS: T5-6 intramedullary spinal cord tumor. POSTOPERATIVE DIAGNOSIS: T5-6 intramedullary spinal cord tumor. PROCEDURES PERFORMED: 1. T5-T6 laminectomies for resection of intramedullary spinal cord tumor. 2. Use of the operating microscope for microdissection. 3. Intraoperative monitoring with somatosensory evoked potentials and motor evoked potentials. SURGEON: Artemio Hudson MD ASSISTANTS: 1. Solomon Barber MD 2. Bg Aj PA-C ANESTHESIA: General endotracheal. ESTIMATED BLOOD LOSS: 150 mL SPECIMEN: Tumor to pathology. Frozen section results consisted of a glial-type of tumor. INDICATIONS: The patient is a 55-year-old woman who has presented with a 1 year history of back pain. Studies ultimately delineated a fairly well circumscribed intramedullary tumor at the T5-6 level.The patient has been neurologically intact. Given this large tumor, she was brought to surgery for laminectomy to resect it. The nature of the procedure, all the potential risks, complications and limitations have been outlined at very great length with the patient and her significant other, and they have agreed to proceed. DESCRIPTION OF PROCEDURE: The patient was brought to the operating room while on her cart. General endotracheal anesthesia was achieved. She was then turned prone on the gel roll, maintained longitudinally under the chest and abdomen. Special care was ensured to protect pressure points. Her back was prepared and draped in the usual fashion. C-arm was brought into use and with AP imaging, the T5-6level was localized. A midline incision was fashioned. The underlying tissues were divided with cautery to provide exposure to the posterior spinal elements. A Leksell rongeur was utilized to remove the spinous processes at T5- T6, and the upper aspect of T7. The drill was utilized to fashion a central trough, which was widened using a Kerrison punch. A fair bit of epidural bleeding occurred and was controlled with bipolar cautery as well as Floseal. The dura was then opened and tacked up using the retaining dural silk sutures. The cord was noted to be a bit ???plump?? within the middle of the exposure. A midline myomotomy was fashioned at the site of the spinal cord prominence. A somewhat fleshy tumor was encountered within the depths of the spinal cord itself. The operating microscope was brought into use and utilized. Using a series of micro Rhoton dissectors, the tumor was separatedfrom the surrounding spinal cord. Somatosensory evoked potentials were followed throughout the case. Intermittent motor evoked potentials were checked. After , the Sonopet was also utilized for ultrasonic aspiration. This was used modestly. 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 There was some decrease in the sensory evoked potentials, but ultimately recovered a fair bit. Some very mild decrease in the motor evoked potentials were noted as well; this was minor. Gross total resection of the tumor was accomplished. The tumor resection site within the spinal cord had good hemostasis and the dura was reapproximated in a running fashion with 4-0 dural silk sutures. The dura was covered with Surgicel. The paraspinous muscle and fascia were reapproximated in an interrupted fashion with 0 Vicryl suture. Then 0.25% Marcaine was instilled in the paraspinous musculature subcutaneous tissues. Subcutaneous tissues were closed in layers with 2-0,followed by 3-0 Vicryl sutures. The skin was closed in a running locked fashion with a 3-0 nylon suture. Sterile dressing was applied. The patient was rolled onto her cart, extubated and taken to therecovery room. She did receive preoperative antibiotics and Decadron. MD ZAFAR Carlson/jeanine Voice Rec. ID #[id number] Voice Original ID #[id number] Doc ID #[id number] Rev. #1 cc: documented in this encounter Miscellaneous Notes * Significant Note - Mag Crabtree RN - 12/04/2015 5:41 PM EDT 12/04/15 2543 Discharge of Care Discharge Mode wheelchair Discharge Destination home Discharged Accompanied By spouse Discharge Contact Information if Applicable see chart Discharge Teaching Done Yes Learning Method Explanation;Teach Back;Written Materials documented in this encounter Plan of Treatment Upcoming Encounters Date Type Department Care Team (Late st Contact Info) Description 03/10/2024 11:30 AM EST Office Visit [facility] RHEUMATOLOGY [address] [place] [id number] Ivan Alvarado, [address] [facility] [address] [place], [place] [id number] 04/24/2024 10:50 AM EST Office Visit [facility] ORTHOPEDICS & SPORTS MEDICINE [address] [place] [address] Solomon Aguilar MD [address] [place], [place] [id number] documented as of this encounter Procedures Procedure Name Priority Date/Time Associated Diagnosis Comments TISSUE PATHOLOGY EXAM Routine 12/02/2015 9:06 AM EDT Spinal cord tumor FL C ARM DURING SURGERY Routine 12/02/2015 7:45 AM EDT LUMBAR SPINAL TUMOR REMOVAL 12/02/2015 6:51 AM EDT Spinal cord tumor Special Needs CB WITH ORDERS, BARBER TO ASSIST, SONIPET, MICROSCOPE, MONITORING, documented in this encounter Results * Tissue Exam (12/02/2015 9:06 AM EDT) Case Report Surgical Pathology Report ? Case: [id number] ? Authorizing Provider: ??Artemio Hudson MD ?Collected: ? 12/02/2015 09:06 AM ? Ordering Location: ? [facility] ?? Received: ?12/02/2015 09:31 AM ? OR ? Pathologist: ? Kevin Aj MD ? Intraop: ? Kevin Aj MD ? Specimens: ?? 1) - Spine, Thoracic, SPINAL CORD TUMOR ? 2) - Spine, Thoracic, TUMOR FOR PERMANENT ? 3) - Spine, Thoracic, sonapet aspirate ? 12/22/2015 3:59 PM EDT [facility] Integrated Oncology, Addendum 1p19q Testing performed at outside laboratory. See scanned report. 12/22/2015 3:59 PM EDT [facility] Addendum electronically signed by Kevin Aj MD on 12/15/2015 at 5:37 PM Clinical Information The working history is spinal cord tumor. 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 DGD/mbc 12/22/2015 3:59 PM EDT [facility] Amendment electronically signed by Kevin Aj MD on 12/22/2015 at 3:59 PM Comment Testing performed at outside laboratory. See scanned report. 12/22/2015 3:59 PM [facility] Intraoperative Consultation Frozen section: Verbal report given to Dr. Hudson via speakerphone on 12/02/2015 at 9:32 AM. 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 (DGD) 12/22/2015 3:59 PM T [facility] Gross Description Specimen 1 received fresh for frozen section labeled spinal cord tumor is a 0.8 x 0.4 x 0.3 cm portion of red/pink soft tissue submitted entirely for frozen section now wrapped and resubmitted in cassette 1. Specimen 2 received in formalin labeled spinal cord tumor is a 1.5 x 1.5 x 0.3 cm aggregate of red/pink soft tissue which is filtered, wrapped and submitted entirely in cassette 2. Specimen 3 received in formalin labeled Sonapet aspirate is a 0.8 x 0.8 x 0.3 cm aggregate of curry/pink soft tissue fragments wrapped submitted in toto in cassette 3. HBM/sm 12/22/2015 3:59 PM EDT [facility] Microscopic Description Sections of specimens 1 - 3 show similar features with a glial neoplasm showing perivascular pseudorosetting with the nuclei appearing with a mild degree of atypia, and appearing ovoid with a finely stippled chromatin pattern. The cytoplasm is relatively scant though fibrillar and extends processes toward small capillaries within the tissue. Mitotic activity is not seen and the tumor appears low grade. No evidence of tumor necrosis is identified. Molecular markers are pending and will be reported when available. DGD/mbc 12/22/2015 3:59 PM EDT [facility] Embedded Images 6 3:59 PM EDT [facility] Tissue Thoracic spine structure / Unknown 12/02/2015 9:06 AM EDT 12/02/2015 9:31 AM EDT Tissue specimen (specimen) Thoracic spine structure / Unknown 12/02/2015 9:06 AM EDT 12/02/2015 10:39 AM EDT Tissue specimen (specimen) Thoracic spine structure / Unknown 12/02/2015 9:36 AM EDT 12/02/2015 10:39 AM EDT us Artemio Hudson MD PATHOLOGY/CYTOLOGY ORDERABLES Edited Result - Final [facility]
[address] [place] [address], * Routine FL c arm during surgery (12/02/2015 7:45 AM EDT) Anatomical Region Laterality Modality Body, Other N/A Radio Fluoroscop y 12/02/2015 4:57 PM EDT Impressions 12/03/2015 12:27 PM EDT Fluoroscopy for localization of the T5/T6 level. D: ??12/02/2015 E: ??12/02/2015 ?? This report was finalized on 12/03/2015 12:[address] Loraine Gonzalez MD. 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 Please see the procedure report for full details. Procedure Note Loraine Gonzalez MD - 12/03/2015 EXAMINATION: FL C ARM DURING SURGERY- 12/02/2015 INDICATION: D49.7-Neoplasm of unspecified behavior of endocrine glands and other parts of nervous system, back pain COMPARISON: NONE FINDINGS: 40 seconds of fluoroscopy used for localization of the T5/T6 level. Please see the procedure report for full details. IMPRESSION: Fluoroscopy for localization of the T5/T6 level. E: 12/02/2015 This report was finalized on 12/03/2015 12:[address] Loraine Gonzalez MD. us Artemio Hudson MD IMG FLUOROSCOPY ORDERABLES Fi nal Result documented in this encounter Visit Diagnoses Diagnosis Spinal cord tumor Neoplasm of unspecified nature of endocrine glands and other parts of nervous system Spinal cord tumor Neoplasm of unspecified nature of endocrine glands and other parts of nervous system documented in this encounter Admitting Diagnoses Diagnosis Spinal cord tumor Neoplasm of unspecified nature of endocrine glands and other parts of nervous system documented in this encounter Administered Medications Inactive Administered Medications - up to 3 most recent administrations Medication Order MAR Action Action Date Dose Rate Site albuterol (PROVENTIL) nebulizer solution 2.5 mg 2.5 mg, Nebulization, As Needed, Wheezing, Starting on Poonam 12/02/15 at 1217 baclofen (LIORESAL) tablet 20 mg 20 mg, Oral, 2 Times Daily, First dose on Poonam 12/02/15 at 1230, Take with food if GI upset occurs. Given 12/04/2015 5:07 PM EDT 20 mg Given 12/04/2015 8:12 AM EDT 20 mg Given 12/03/2015 5:13 PM EDT 20 mg ceFAZolin in dextrose (ANCEF) IVPB solution 2 g 2 g, Intravenous, Administer over 30 Minutes, Every 8 Hours, First dose on Poonam 12/02/15 at 1400, For 2 doses, Time first dose from pre-op dose, Indications: Surgical ProphylaxisIndications:Surgical Prophylaxis New Bag 12/02/2015 10:41 PM EDT 2 g New Bag 12/02/2015 2:16 PM EDT 2 g celecoxib (CeleBREX) capsule 200 mg 200 mg, Oral, 2 Times Daily, First dose on Poonam 12/02/15 at 1230, Caution: Look alike/sound alike drug alert. Take with food if GI upset occurs. Given 12/04/2015 5:07 PM EDT 200 mg Given 12/04/2015 8:12 AM EDT 200 mg Given 12/03/2015 5:13 PM EDT 200 mg cyclobenzaprine (FLEXERIL) tablet 5 mg 5 mg, Oral, Nightly, First dose on Sun12/02/15 at 2100 Given 12/03/2015 8:56 PM EDT 5 mg Given 12/02/2015 10:41 PM EDT 5 mg dexamethasone (DECADRON) injection 4 mg 4 mg, Intravenous, Every 8 Hours Scheduled, First dose (after last modification) on Sun12/03/15 at 1400, For IV administration. May be pushed over a minimum of 1 minute. Given 12/04/2015 5:11 AM EDT 4 mg dexamethasone (DECADRON) tablet 4 mg 4 mg, Oral, Every 6 Hours Scheduled, First dose on Poonam 12/02/15 at 1230, Take with food. Given 12/03/2015 5:26 AM EDT 4 mg Given 12/02/2015 10:48 PM EDT 4 mg Given 12/02/2015 6:29 PM EDT 4 mg dexamethasone (DECADRON) tablet 4 mg 4 mg, Oral, Every 8 Hours Scheduled, First dose (after last modification) on Sun12/03/15 at 1400, Take with food. Given 12/04/2015 1:31 PM EDT 4 mg Given 12/03/2015 8:57 PM EDT 4 mg Given 12/03/2015 2:09 PM EDT 4 mg DULoxetine (CYMBALTA) DR capsule 60 mg 60 mg, Oral, 2 Times Daily, First dose on Poonam 12/02/15 at 1230, Do not crush or chew capsule. Given 12/04/2015 5: 07 PM EDT 60 mg Given 12/04/2015 8:12 AM EDT 60 mg Given 12/03/2015 5:13 PM EDT 60 mg famotidine (PEPCID) tablet 20 mg 20 mg, Oral, 30 min pre-op, Starting on Poonam 12/02/15 at 0556, For 1 dose, Give with sip of water the morning of surgeryIndications:Spinal cord tumor Given 12/02/2015 6:32 AM EDT 20 mg fluticasone (FLONASE) 50 MCG/ACT nasal spray 2 spray 2 spray, Nasal, Daily, First dose on Poonam 12/02/15 at 1230 Given 12/04/2015 8:12 AM EDT 2 sprays Given 12/03/2015 8:32 AM EDT 2 sprays Given 12/02/2015 1:24 PM EDT 2 sprays gabapentin (NEURONTIN) capsule 600 mg 600 mg, Oral, 3 Times Daily, First dose on Poonam 12/02/15 at 1600 Given 12/04/2015 3:37 PM EDT 600 mg Given 12/04/2015 8:12 AM EDT 600 mg Given 12/03/2015 8:57 PM EDT 600 mg HYDROmorphone (DILAUDID) injection 0.5 mg 0.5 mg, Intravenous, Every 5 Minutes PRN, Severe Pain, Starting on Poonam 12/02/15 at 1040, For 4 doses, Maximum total dose of hydromorphone is 2 mg. Given 12/02/2015 11:25 AM EDT 0.5 mg lactated ringers infusion 9 mL/hr, Intravenous, Continuous, Starting on Poonam 12/02/15 at 0715 New Bag 12/02/2015 7:06 AM EDT New Bag 12/02/2015 6:20 AM EDT 9 mL/hr 9 mL/hr lactated ringers infusion 90 mL/hr, Intravenous, Continuous, Starting on Poonam 12/02/15 at 1100 New Bag 12/02/2015 12:11 PM EDT 90 mL/hr 90 mL/hr lidocaine PF (XYLOCAINE) 1 % injection 0.5 mL 0.5 mL, Injection, Once, On Poonam 12/02/15 at 0715, For 1 dose Given 12/02/2015 6:18 AM EDT 0.5 mL montelukast (SINGULAIR) tablet 10 mg 10 mg, Oral, Nightly, First dose on Poonam 12/02/15 at 2100 Given 12/03/2015 8:55 PM EDT 10 mg Given 12/02/2015 10:41 PM EDT 10 mg morphine sulfate (PF) injection 1 mg 1 mg, Intravenous, Every 4 Hours PRN, Moderate Pain, Starting on Poonam 12/02/15 at 1149, For 10 days morphine sulfate (PF) injection 2 mg 2 mg, Intravenous, Every 4 Hours PRN, Severe Pain, Starting on Poonam 12/02/15 at 1149, For 10 days mupirocin (BACTROBAN) 2 % nasal ointment 1 application 1 application , Each Nare, Once, On Poonam 12/02/15 at 0600, For 1 dose, Instill into nares the night before and AM of surgery as directed. {BKC}Indications:Spinal cord tumor Given 12/02/2015 6:32 AM EDT 1 applica tion naloxone (NARCAN) injection 0.4 mg 0.4 mg, Intravenous, Every 5 Minutes PRN, Respiratory Depression, Starting on Poonam 12/02/15 at 1149, If respiratory rate is less than 8 breaths/minute or patient is difficult to arouse stop any narcotics and contact physician. Administer slow IV push. Repeat as ordered until patient's respiratory rate is greater than 12 breaths/minute. naloxone (NARCAN) injection 0.4 mg 0.4 mg, Intravenous, Every 5 Minutes PRN, Respiratory Depression, Starting on Poonam 12/02/15 at 1149, If respiratory rate is less than 8 breaths/minute or patient is difficult to arouse stop any narcotics and contact physician. Administer slow IV push. Repeat as ordered until patient's respiratory rate is greater than 12 breaths/minute. oxyCODONE-acetaminophen (PERCOCET) 5-325 MG per tablet 1 tablet 1 tablet, Oral, Every 4 Hours PRN, Moderate Pain, Starting on Pooanm 12/02/15 at 1149, For 10 days, Do not exceed 4g of acetaminophen in a 24 hour period. Given 12/04/2015 1:31 PM EDT 1 tabl et Given 12/03/2015 4:01 PM EDT 1 tablet Given 12/03/2015 5:26 AM EDT 1 tablet pantoprazole (PROTONIX) EC tablet 40 mg 40 mg, Oral, Every Dependency Case Manager, First dose on Poonam 12/02/15 at 1300, Formulary change for omeprazole 20 mg daily Swallow whole; do not crush, split, or chew. Given 12/04/2015 5:11 AM EDT 40 mg Given 12/03/2015 5:26 AM EDT 40 mg Given 12/02/2015 1:24 PM EDT 40 mg promethazine (PHENERGAN) injection 12.5 mg 12.5 mg, Intramuscular, Every 6 Hours PRN, Nausea, Vomiting, Starting on Poonam 12/02/15 at 1149, If given IV, dilute in 20 mL of NS. Max rate: 25 mg/min If giving IV, dilute dose in 20 mL NS and slow IV push over 3-5 minutes. Administer through large bore vein (not hand or wrist) through running IV line at port furthest from patient's vein. promethazine (PHENERGAN) suppository 12.5 mg 12.5 mg, Rectal, Every 6 Hours PRN, Nausea, Vomiting, Starting on Poonam 12/02/15 at 1149, If BOTH ondansetron (ZOFRAN) and promethazine (PHENERGAN) are ordered use ondansetron first and THEN promethazine IF ondansetron is ineffective. promethazine (PHENERGAN) tablet 12.5 mg 12.5 mg, Oral, Every 6 Hours PRN, Nausea, Vomiting, Starting on Poonam 12/02/15 at 1149, If BOTH ondansetron (ZOFRAN) and promethazine (PHENERGAN) are ordered use ondansetron first and THEN promethazine IF ondansetron is ineffective. {BKC} documented in this encounter Active and Recently Administered Medications Times are shown in EDT. Scheduled Medication Order 12/02/2015 12/03/2015 12/04/2015 baclofen (LIORESAL) tablet 20 mg 20 mg, Oral, 2 Times Daily, First dose on Poonam 12/02/15 at 1230, Take with food if GI upset occurs. 1324 (Given - Provider: Shirley Andersen RN)1829 (Given - Provider: Shirley Andersen RN) 0832 (Given - Provider: Shriley Andersen RN)1713 (Given - Provider: Shirley Andersen, RN) 0812 (Given - Provider: Mag Crabtree, DOUG)1707 (Given - Provider: Mag Crabtree, DOUG) ceFAZolin in dextrose (ANCEF) IVPB solution 2 g (COMPLETED) 2 g, Intravenous, Administer over 30 Minutes, Every 8 Hours, First dose on Poonam 16 at 1400, For 2 doses, Time first dose from pre-op dose, Indications: Surgical Prophylaxis 1416 (New Bag - Provider: Shirley Andersen RN)2241 (New Bag - Provider: Maura Hwang, DOUG) celecoxib (CeleBREX) capsule 200 mg 200 mg, Oral, 2 Times Daily, First dose on Sun12/02/15 at 1230, Caution: Look alike/sound alike drug alert. Take with food if GI upset occurs. 1324 (Given - Provider: Shirley Andersen RN)1834 (Given - Provider: Shirley Andersen RN) 0832 (Given - Provider: Shirley Andersen RN)1713 (Given - Provider: Shirley Andersen RN) 0812 (Given - Provider: Mag Crabtree, DOUG)1707 (Given - Provider: Mag Crabtree, DOUG) cyclobenzaprine (FLEXERIL) tablet 5 mg 5 mg, Oral, Nightly, First dose on Sun12/02/15 at 2100 2241 (Given - Provider: Maura Hwang, DOUG) 2055 (Given - Provider: Chapis Kerns RN) dexamethasone (DECADRON) 10 mg in sodium chloride 0.9 % IVPB (COMPLETED) 10 mg, Intravenous, Every 6 Hours, First dose on Sun12/02/15 at 0630, For 1 dose 0720 (New Bag - Provider: Diann Kimbrough CRNA) dexamethasone (DECADRON) injection 4 mg(Linked Group 1) 4 mg, Intravenous, Every 8 Hours Scheduled, First dose (after last modification) on Sun12/03/15 at 1400, For IV administration. May be pushed over a minimum of 1 minute. 1409 (Not Given: See Alt - Provider: Shirley Andersen RN)2057 (Not Given: See Alt - Provider: Chapis Kerns RN)2200 (Not Given: See Alt - Provider: Chapis Kerns, DOUG) 0511 (Given - Provider: Chapis Kerns, DOUG)1331 (Not Given: See Alt - Provider: Mag Crabtree RN) dexamethasone (DECADRON) tablet 4 mg (CANCELED) 4 mg, Oral, Every 6 Hours Scheduled, First dose on Sun12/02/15 at 1230, Take with food. 1324 (Given - Provider: Shirley Andersen RN)1829 (Given - Provider: Shirley Andersen RN)2248 (Given - Provider: Maura Hwang, DOUG) 0000 (Due)0526 (Given - Provider: Maura Hwang RN) dexamethasone (DECADRON) tablet 4 mg(Linked Group 1) 4 mg, Oral, Every 8 Hours Scheduled, First dose (after last modification) on Sun12/03/15 at 1400, Take with food. 1409 (Given - Provider: Shirley Andersen RN)2057 (Given - Provider: Chapis Kerns, RN)2200 (Canceled Entry - Provider: Chapis Kerns, RN) 0511 (Not Given: See Alt - Provider: Chapis Kerns, RN)1331 (Given - Provider: Mag Crabtree RN) DULoxetine (CYMBALTA) DR capsule 60 mg 60 mg, Oral, 2 Times Daily, First dose on Sun12/02/15 at 1230, Do not crush or chew capsule. 1324 (Given - Provider: Shirley Andersen RN)1829 (Given - Provider: Shirley Andersen RN) 0832 (Given - Provider: Shirley Andersen RN)1713 (Given - Provider: Shirley Andersen RN) 0812 (Given - Provider: Mag Crabtree, DOUG)1707 (Given - Provider: Mag Crabtree RN) famotidine (PEPCID) tablet 20 mg (COMPLETED) 20 mg, Oral, 30 min pre-op, Starting on Sun12/02/15 at 0556, For 1 dose, Give with sip of water the morning of surgery 0632 (Given - Provider: Janey Jones RN) fluticasone (FLONASE) 50 MCG/ACT nasal spray 2 spray 2 spray, Nasal, Daily, First dose on Sun12/02/15 at 1230 1324 (Given - Provider: Shirley Andersen RN) 0832 (Given - Provider: Shirley Andersen RN) 0812 (Given - Provider: Mag Crabtree RN) gabapentin (NEURONTIN) capsule 600 mg 600 mg, Oral, 3 Times Daily, First dose on Sun12/02/15 at 1600 1659 (Given - Provider: Shirley Andersen RN)2241 (Given - Provider: Maura Hwang RN) 0832 (Given - Provider: Shirley Andersen, RN)1601 (Given - Provider: Shirley Andersen, RN)2057 (Given - Provider: Chapis Kerns, RN) 0812 (Given - Provider: Mag Crabtree, RN)1537 (Given - Provider: Mag Crabtree, RN) lidocaine PF (XYLOCAINE) 1 % injection 0.5 mL (COMPLETED) 0.5 mL, Injection, Once, On Poonam 12/02/15 at 0715, For 1 dose 0618 (Given - Provider: Janey Jones RN) montelukast (SINGULAIR) tablet 10 mg 10 mg, Oral, Nightly, First dose on Poonam 12/02/15 at 2100 2241 (Given - Provider: Maura Hwang RN) 2054 (Given - Provider: Chapis Kerns, DOUG) mupirocin (BACTROBAN) 2 % nasal ointment 1 application (COMPLETED) 1 application , Each Nare, Once, On Poonam 12/02/15 at 0600, For 1 dose, Instill into nares the night before and AM of surgery as directed. {[facility]} 0632 (Given - Provider: Janey Jones RN) pantoprazole (PROTONIX) EC tablet 40 mg 40 mg, Oral, Every Dependency Case Manager, First dose on Poonam 12/02/15 at 1300, Formulary change for omeprazole 20 mg daily Swallow whole; do not crush, split, or chew. 1324 (Given - Provider: Shirley Andersen, DOUG) 0526 (Given - Provider: Maura Hwang RN) 0511 (Given - Provider: Chapis Kerns, DOUG) Continuous Medication Order 12/02/2015 12/03/2015 12/04/2015 lactated ringers infusion (CANCELED) 9 mL/hr, Intravenous, Continuous, Starting on Poonam 12/02/15 at 0715 0620 (New Bag - Provider: Janey Jones RN)0706 (New Bag - Provider: Diann Kimbrough CRNA)0822 (Anesthesia Volume Adjustment - Provider: Diann Kimbrough CRNA) lactated ringers infusion (CANCELED) 90 mL/hr, Intravenous, Continuous, Starting on Poonam 8/25/16 at 1100 1211 (New Bag - Provider: Shirley Andersen RN) PRN Medication Order 12/02/2015 12/03/2015 12/04/2015 acetaminophen (TYLENOL) tablet 650 mg 650 mg, Oral, Every 4 Hours PRN, Mild Pain, Starting on Poonam 12/02/15 at 1149, Do not exceed 4 grams of acetaminophen in a 24 hr period. albuterol (PROVENTIL) nebulizer solution 2.5 mg 2.5 mg, Nebulization, As Needed, Wheezing, Starting on Poonam 12/02/15 at 1217 bisacodyl (DULCOLAX) EC tablet 5 mg 5 mg, Oral, Daily PRN, Constipation, Starting on Poonam 12/02/15 at 1149, Swallow whole. Do not crush, split, or chew tablet. bisacodyl (DULCOLAX) suppository 10 mg 10 mg, Rectal, Daily PRN, Constipation, Starting on Poonam 12/02/15 at 1019 bupivacaine-EPINEPHrine PF (MARCAINE w/EPI) 0.25% -[id number] injection (CANCELED) As Needed, Starting on Poonam 12/02/15 at 0959 0959 (Given - Provider: Artemio Hudson MD) diphenhydrAMINE (BENADRYL) capsule 25 mg 25 mg, Oral, Nightly PRN, Sleep, Starting on Poonam 12/02/15 at 1019, This med may be ordered in other forms and routes. Before giving verify the last time the drug was given by any route/form. docusate sodium (COLACE) capsule 100 mg 100 mg, Oral, 2 Times Daily PRN, Constipation, Starting on Poonam 12/02/15 at 1019, Swallow whole. Do not open, crush, or chew capsule. floseal (FLOSEAL) injection (CANCELED) As Needed, Starting on Poonam 12/02/15 at 0751 0751 (Given - Provider: Artemio Hudson MD) floseal (FLOSEAL) injection (CANCELED) As Needed, Starting on Poonam 12/02/15 at 0752 0752 (Given - Provider: Artemio Hudson MD) gelatin absorbable (GELFOAM) sponge (CANCELED) As Needed, Starting on Poonam 12/02/15 at 0750 0750 (Given - Provider: Artemio Hudson MD) HYDROmorphone (DILAUDID) injection 0.5 mg (CANCELED) 0.5 mg, Intravenous, Every 5 Minutes PRN, Severe Pain, Starting on Poonam 12/02/15 at 1040, For 4 doses, Maximum total dose of hydromorphone is 2 mg. 1125 (Given - Provider: Joe Raymond RN) ibuprofen (ADVIL,MOTRIN) tablet 200 mg 200 mg, Oral, Every 4 Hours PRN, Mild Pain, Starting on Poonam 12/02/15 at 1149 magnesium hydroxide (MILK OF MAGNESIA) suspension 2400 mg/10mL 10 mL 10 mL, Oral, Daily PRN, Constipation, Starting on Poonam 12/02/15 at 1019 morphine sulfate (PF) injection 1 mg(Linked Group 2) 1 mg, Intravenous, Every 4 Hours PRN, Moderate Pain, Starting on Poonam 12/02/15 at 1149, For 10 days morphine sulfate (PF) injection 2 mg(Linked Group 3) 2 mg, Intravenous, Every 4 Hours PRN, Severe Pain, Starting on Poonam 12/02/15 at 1149, For 10 days naloxone (NARCAN) injection 0.4 mg(Linked Group 2) 0.4 mg, Intravenous, Every 5 Minutes PRN, Respiratory Depression, Starting on Poonam 12/02/15 at 1149, If respiratory rate is less than 8 breaths/minute or patient is difficult to arouse stop any narcotics and contact physician. Administer slow IV push. Repeat as ordered until patient's respiratory rate is greater than 12 breaths/minute. naloxone (NARCAN) injection 0.4 mg(Linked Group 3) 0.4 mg, Intravenous, Every 5 Minutes PRN, Respiratory Depression, Starting on Poonam 12/02/15 at 1149, If respiratory rate is less than 8 breaths/minute or patient is difficult to arouse stop any narcotics and contact physician. Administer slow IV push. Repeat as ordered until patient's respiratory rate is greater than 12 breaths/minute. oxyCODONE-acetaminophen (PERCOCET) 5-325 MG per tablet 1 tablet 1 tablet, Oral, Every 4 Hours PRN, Moderate Pain, Starting on Poonam 12/02/15 at 1149, For 10 days, Do not exceed 4g of acetaminophen in a 24 hour period. 1324 (Given - Provider: Shirley Andersen, RN)1829 (Given - Provider: Shirley Andersen, DOUG)2241 (Given - Provider: Maura Hwang, DOUG) 0526 (Given - Provider: Maura Hwang, DOUG)1601 (Given - Provider: Shirley Andersen, RN) 1331 (Given - Provider: Mag Crabtree RN) polyethylene glycol (MIRALAX) packet 17 g 17 g, Oral, Daily PRN, constipation, Starting on Poonam 12/02/15 at 1149, Dissolve in water promethazine (PHENERGAN) injection 12.5 mg(Linked Group 4) 12.5 mg, Intramuscular, Every 6 Hours PRN, Nausea, Vomiting, Starting on Poonam 12/02/15 at 1149, If given IV, dilute in 20 mL of NS. Max rate: 25 mg/min If giving IV, dilute dose in 20 mL NS and slow IV push over 3-5 minutes. Administer through large bore vein (not hand or wrist) through running IV line at port furthest from patient's vein. promethazine (PHENERGAN) suppository 12.5 mg(Linked Group 4) 12.5 mg, Rectal, Every 6 Hours PRN, Nausea, Vomiting, Starting on Poonam 12/02/15 at 1149, If BOTH ondansetron (ZOFRAN) and promethazine (PHENERGAN) are ordered use ondansetron first and THEN promethazine IF ondansetron is ineffective. promethazine (PHENERGAN) tablet 12.5 mg(Linked Group 4) 12.5 mg, Oral, Every 6 Hours PRN, Nausea, Vomiting, Starting on Poonam 12/02/15 at 1149, If BOTH ondansetron (ZOFRAN) and promethazine (PHENERGAN) are ordered use ondansetron first and THEN promethazine IF ondansetron is ineffective. {BKC} sennosides-docusate sodium (SENOKOT-S) 8.6-50 MG tablet 1 tablet 1 tablet, Oral, Nightly PRN, Constipation, Starting on Poonam 12/02/15 at 1019 sodium chloride 0.9 % flush 1-10 mL 1-10 mL, Intravenous, As Needed, Line Care, Starting on Poonam 12/02/15 at 1149 sodium chloride 1,000 mL with bacitracin 50,000 Units, polymyxin B 500,000 Units irrigation (CANCELED) As Needed, Starting on Poonam 12/02/15 at 0747 0747 (Given - Provider: Artemio Hudson MD) thrombin (THROMBIN-JMI) kit (CANCELED) As Needed, Starting on Poonam 12/02/15 at 0750 0750 (Given - Provider: Artemio Hudson MD)0813 (Given - Provider: Artemio Hudson MD)0827 (Given - Provider: Artemio Hudson MD) traMADol (ULTRAM) tablet 50 mg 50 mg, Oral, 3 Times Daily PRN, Moderate Pain, Starting on Poonam 12/02/15 at 1149 ZOLMitriptan (ZOMIG) tablet 5 mg 5 mg, Oral, Once As Needed, Migraine, Starting on Poonam 12/02/15 at 1149, May repeat dose once in 2 hours if migraine unresolved. Do not exceed 10 mg in 24 hours. Linked Groups Order Group 1: dexamethasone (DECADRON) tablet 4 mgJump to med 4 mg, Oral, Every 8 Hours Scheduled, First dose (after last modification) on Sun12/03/15 at 1400, Take with food. Or dexamethasone (DECADRON) injection 4 mgJump to med 4 mg, Intravenous, Every 8 Hours Scheduled, First dose (after last modification) on Sun12/03/15 at 1400, For IV administration. May be pushed over a minimum of 1 minute. Group 2: morphine sulfate (PF) injection 1 mgJump to med 1 mg, Intravenous, Every 4 Hours PRN, Moderate Pain, Starting on Poonam 12/02/15 at 1149, For 10 days And naloxone (NARCAN) injection 0.4 mgJump to med 0.4 mg, Intravenous, Every 5 Minutes PRN, Respiratory Depression, Starting on Poonam 12/02/15 at 1149, If respiratory rate is less than 8 breaths/minute or patient is difficult to arouse stop any narcotics and contact physician. Administer slow IV push. Repeat as ordered until patient's respiratory rate is greater than 12 breaths/minute. Group 3: morphine sulfate (PF) injection 2 mgJump to med 2 mg, Intravenous, Every 4 Hours PRN, Severe Pain, Starting on Poonam 12/02/15 at 1149, For 10 days And naloxone (NARCAN) injection 0.4 mgJump to med 0.4 mg, Intravenous, Every 5 Minutes PRN, Respiratory Depression, Starting on Poonam 12/02/15 at 1149, If respiratory rate is less than 8 breaths/minute or patient is difficult to arouse stop any narcotics and contact physician. Administer slow IV push. Repeat as ordered until patient's respiratory rate is greater than 12 breaths/minute. Group 4: promethazine (PHENERGAN) tablet 12.5 mgJump to med 12.5 mg, Oral, Every 6 Hours PRN, Nausea, Vomiting, Starting on Poonam 12/02/15 at 1149, If BOTH ondansetron (ZOFRAN) and promethazine (PHENERGAN) are ordered use ondansetron first and THEN promethazine IF ondansetron is ineffective. {BKC} Or promethazine (PHENERGAN) injection 12.5 mgJump to med 12.5 mg, Intramuscular, Every 6 Hours PRN, Nausea, Vomiting, Starting on Poonam 12/02/15 at 1149, If given IV, dilute in 20 mL of NS. Max rate: 25 mg/min If giving IV, dilute dose in 20 mL NS and slow IV push over 3-5 minutes. Administer through large bore vein (not hand or wrist) through running IV line at port furthest from patient's vein. Or promethazine (PHENERGAN) suppository 12.5 mgJump to med 12.5 mg, Rectal, Every 6 Hours PRN, Nausea, Vomiting, Starting on Poonam 12/02/15 at 1149, If BOTH ondansetron (ZOFRAN) and promethazine (PHENERGAN) are ordered use ondansetron first and THEN promethazine IF ondansetron is ineffective. documented in this encounter Care Teams French Cord Binder Relationship Specialty Start Date End Date Afua Hurley DO Formerly named [facility] [place] [address] PCP - General Family Medicine 10/14/15 documented as of this encounter
--- OUTSIDE RECORDS SUMMARY | 2024-02-24 15:59 | XMS_ITS | Encounter Summary ---
[facility] Address [address] [place] [address] Care Team Providers Care Transportation Planning Technician Name Role Phone Afua Hurley DO Primary Care Provider [phone] Reason for Referral * Diagnostic Imaging (Routine) - Closed Specialty Diagnoses / Procedures Referred By Contac t Referred To Contact Radiology Diagnoses Spinal cord tumor Procedures MRI Thoracic Spine With & Without Contrast Artemio Hudson MD [address] [place] [address] Phone: tel: fax: [address] [address] Phone: tel: Referral ID Status Reason Start Date Expiration Date Visits Re quested Visits Authorized [id number] Closed 04/19/2017 05/18/2017 1 1 Reason for Visit * Reason Comments Back Pain 4 month f/u Encounter Details Date Type Department Care Team (Late st Contact Info) Description 09/23/2016 10:45 AM EDT Office Visit [facility] NEUROSURGERY [address] [place] [address] Artemio Hudson MD [address] [place] [address] Spinal cord tumor (Primary Dx) Social History [...] Pressure - - Pulse - - Temperature 34.7 ??C (94.5 ??F) 09/23/2016 10:59 AM E DT Respiratory Rate - - Oxygen Saturation - - Inhaled Oxygen Concentration - - Weight 96.2 kg (212 lb) 09/23/2016 10:59 AM EDT Height 162.6 cm (5' 4 ) 09/23/2016 10:59 AM EDT Body Mass Index 36.39 09/23/2016 10:59 AM EDT documented in this encounter Progress Notes * Artemio Hudson MD - 09/23/2016 10:45 AM EDT Patient: Sue Cardona : 1960 Primary Care Provider: Afua Hurley DO Requesting Provider: As above History Chief Complaint: Mid back pain. History of Present Illness: Ms. Macedo is a 56-year-old woman who presented with increasing mid back pain and was noted to have an intramedullary spinal cord tumor. On 12/02/2015 she underwent T5 andT6 laminectomies to resect the intramedullary spinal cord tumor. 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 Gross total resection was accomplished. She did of just a bit of CSF leakage from her incision upon follow-up. Sutures were left in a bit longer. She's had no further difficulties in that regard. She's had some pain to the right of her incision from time to time. Occasionally she has some bowel urgency. She reports no bladder difficulties. When up to long she does get some swelling in her feet. Review of Systems Constitutional: Negative for activity [...] and urgency. Musculoskeletal: Positive for arthralgias, back pain and gait problem. Negative for joint swelling,myalgias, neck pain and neck stiffness. Skin: Negative [...] the electronic medical record. Physical Exam: Temp 94.5 ??F (34.7 ??C) (Temporal Artery ) Ht 64 (162.6 cm) Wt 212 lb (96.2 kg) BMI 36.39 kg/m2 MUSCULOSKELETAL: Straight leg raising is negative. Juan R's Sign is negative. ROM in back normal. Tenderness in the back to palpation is not observed. Midline thoracic incision is well-healed. NEUROLOGICAL: Strength is intact in the lower extremities to direct testing. Muscle tone is normal throughout. Station and gait are normal. Sensation is intact to light touch testing throughout. Deep tendon reflexes are difficult to elicit throughout. No clonus is noted. Coordination is intact. Medical Decision Making Data Review: MRI demonstrates postsurgical changes at T5 and T6. There is no residual or recurrent tumor noted. There is some myelomalacia at the resection site. Diagnosis: Thoracic cord ependymoma status post resection. No adjuvant therapy has been administered. Treatment Options: The patient will follow up in 8 months with a new MRI of the thoracic spine with and without gadolinium. Diagnosis Plan 1. Spinal cord tumor I, Dr. Hudson, personally performed the services described in the documentation, as scribed in my presence, and it is both accurate and complete. Scribed for Artemio Hudson MD by Jack Shell CMA on 09/23/2016 at 11:14 AM documented in this encounter Plan of Treatment Upcoming Encounters Date Type Department Care Team (Late st Contact Info) Description 03/10/2024 11:30 AM EST Office Visit [facility] RHEUMATOLOGY [address] [facility] [address] [place] [phone] Ivan Alvarado DO [address] [facility] [address] [place] [address] 04/24/2024 10:50 AM EST Office Visit [facility] ORTHOPEDICS & SPORTS MEDICINE [address] [facility] [address] [place] [address] Solomon Aguilar MD [address] [place] [address] [address] [place] [address] documented as of this encounter Results * MRI Thoracic Spine With & Without Contrast (05/15/2017 1:31 PM EST) Anatomical Region Laterality Modality Spine, T-spine N/A Magnetic Resonan ce 05/15/2017 3:50 PM EST Impressions 05/15/2017 6:37 PM EST 1. ??Stable deformity and dorsal displacement of the thoracic cord at the T5-T6 level with cord deformity. The cord is likely adhered to the posterior dural reflection of the thecal sac at this level as a postoperative change. This deformity and cord displacement has not changed or progressed when compared to 09/20/2016. 2. ??The cord above and below this area remains normal. 3. ??Contrast enhanced data sets today reveal no evidence of pathologic enhancement within the cord or epidural space at this level. 4. ??Therefore, the abnormalities of the thoracic cord and the abnormalities at the T5-T6 level are stable when compared to previous studies. D: ??05/15/2017 E: ??05/15/2017 ?? This report was finalized on 05/15/2017 6:[address] Sotero Hammer MD. Narrative 05/15/2017 6:37 PM EST EXAMINATION: MRI THORACIC SPINE W WO CONTRAST-05/15/2017: INDICATION: Spinal tumor; D49.7-Neoplasm of unspecified behavior of endocrine glands and other parts of nervous system. ? TECHNIQUE: ??MR data sets of the thoracic spine and thoracic cord were performed without and with intravenous contrast. COMPARISON: ??Comparison is made to previous data sets of 09/20/2016. FINDINGS: 1. There is dorsal displacement of the thoracic cord at the T5 and T6 level altering the normal course of the cord. It appears that the cord is retracted dorsally against the dural reflection and there are postoperative changes identified posterior to this area of cord deviation. 2. The degree of cord deformity and cord displacement dorsally has not changed since studies of 09/20/2016. Further, there is no evidence of enhancing lesion within the cord or epidural space. 3. Above and below the area of the dorsal cord displacement at T5 and T6, the cord remains normal. Anterior epidural space is unremarkable. The dorsal vertebral bodies are well aligned and the marrow signal is normal. Procedure Note Sotero Hammer MD - 05/15/2017 EXAMINATION: MRI THORACIC SPINE W WO CONTRAST-05/15/2017: INDICATION: Spinal tumor; D49.7-Neoplasm of unspecified behavior of endocrine glands and other parts of nervous system. TECHNIQUE: MR data sets of the thoracic spine and thoracic cord were performed without and with intravenous contrast. COMPARISON: Comparison is made to previous data sets of 09/20/2016. FINDINGS: 1. There is dorsal displacement of the thoracic cord at the T5 and T6 level altering the normal course of the cord. It appears that the cord is retracted dorsally against the dural reflection and there are postoperative changes identified posterior to this area of cord deviation. 2. The degree of cord deformity and cord displacement dorsally has not changed since studies of 09/20/2016. Further, there is no evidence of enhancing lesion within the cord or epidural space. 3. Above and below the area of the dorsal cord displacement at T5 and T6, the cord remains normal. Anterior epidural space is unremarkable. The dorsal vertebral bodies are well aligned and the marrow signal is normal. IMPRESSION: 1. Stable deformity and dorsal displacement of the thoracic cord at the T5-T6 level with cord deformity. The cord is likely adhered to the posterior dural reflection of the thecal sac at this level as a postoperative change. This deformity and cord displacement has not changed or progressed when compared to 09/20/2016. 2. The cord above and below this area remains normal. 3. Contrast enhanced data sets today reveal no evidence of pathologic enhancement within the cord or epidural space at this level. 4. Therefore, the abnormalities of the thoracic cord and the abnormalities at the T5-T6 level are stable when compared to previous studies. E: 05/15/2017 This report was finalized on 05/15/2017 6:[address] Sotero Hammer MD. Artemio Hudson MD IMG MRI ORDERABLES Final Resu lt documented in this encounter Visit Diagnoses Diagnosis Spinal cord tumor- Primary Neoplasm of unspecified nature of endocrine glands and other parts of nervous system Spinal cord tumor Neoplasm of unspecified nature of endocrine glands and other parts of nervous system documented in this encounter Care Teams Transportation Planning Technician Relationship Specialty Start Date End Date Afua Hurley DO [facility] [place] [employer] [address] PCP - General Family Medicine 10/14/15 documented as of this encounter
--- OUTSIDE RECORDS SUMMARY | 2024-02-24 15:59 | XMS_ITS | Referral Summary ---
Author Organization [facility] Address [address] [place] [id number] Care Team Providers Care Boiler Repairman Name Role Phone Unavailable Primary Care Provider Unavailabl e Social History Tobacco Use Types Packs/Day Years Used Date Smoking Tobacco: Never Assessed Comments Unknown Sex and Gender Information Value Date Recorded Sex Assigned at Female 10/06/2021 11:59 AM CDT Legal Sex Female 7:14 PM CDT Gender Identity Female 10/06/2021 11:59 AM CDT Sexual Orientation Not on file Plan of Treatment Not on file
--- OUTSIDE RECORDS SUMMARY | 2024-02-24 15:59 | XMS_ITS | Encounter Summary ---
[facility] Address [address] [place] [address] Care Team Providers Care Bowling Ball Grader And Marker Name Role Phone Mei Afua Hughes Primary Care Provider [phone] Reason for Referral * Surgical (Routine) - Closed Specialty Diagnoses / Procedures Referred By Contac t Referred To Contact Diagnoses Spinal cord tumor Procedures Case Request Artemio Hudson MD [address] [place] [address] Phone: tel: fax: Referral ID Status Reason Start Date Expiration Date Visits Re quested Visits Authorized [id number] Closed 10/29/2015 04/26/2016 1 0 Encounter Details Date Type Department Care Team (Late st Contact Info) Description 10/29/2015 Prep for Surgery [facility] NEUROS[facility]GERY [address] [phone] Artemio Hudson MD [address] [place] [address] Spinal cord tumor (Primary Dx) Social History Tobacco Use Types Packs/Day Years Used Date Smoking Tobacco: Former Cigarettes Q uit: 1985 Smokeless Tobacco: Never Alcohol Use Standard Drinks/Week Comments Yes 0 (1 standard drink = 0.6 oz pur e alcohol) Comments Unknown Sex and Gender Information Value Date Recorded Sex Assigned at Not on file Legal Sex Female 7:49 AM EDT Gender Identity Not on file Sexual Orientation Not on file documented as of this encounter H&P Notes * Artemio Hudson MD - 10/29/2015 12:23 PM EDT Patient: Sue Cardona : 1960 Primary Care Provider: Afua Hurley DO Requesting Provider: Dr. Alvarado History Chief Complaint: Mid and low back pain. History of Present Illness: The patient is a 55 old woman not currently working who describes an 8-12 month history of pain in her middle back. She has associated spasms. She does not have any thoracic radicular symptoms that involve the chest or abdomen. She chronically for years has had low back pain. Sometimes she gets pain in the back of her left thigh. Intermittent she'll have some tingling in her feet and legs. She has no bowel or bladder dysfunction. Her legs will fatigue from time to time. She has pain in her shoulders, knees, hips and in other major joints. She does have a history offibromyalgia. Review of Systems Constitutional: Positive for activity change and fatigue. Negative for appetite change, chills, diaphoresis, fever and unexpected [...] stool,constipation, diarrhea, nausea, rectal pain and vomiting. Musculoskeletal: Positive for arthralgias, back pain, myalgias, neck pain and neck stiffness. Negative for gait problem and joint swelling. Skin: Negative for color change, pallor, rash and wound. Allergic/Immunologic: Negative for environmental allergies, food allergies and immunocompromised state. Neurological: Positive for weakness and numbness. Negative for dizziness, tremors, seizures, syncope, facial asymmetry, speech difficulty, light- headedness and headaches. Hematological: Negative for adenopathy. Does not bruise/bleed easily. Psychiatric/Behavioral: Positive for dysphoric mood. Negative for agitation, behavioral problems, confusion, decreased concentration, self-injury, sleep disturbance and suicidal ideas. The patient isnervous/anxious. The patient is not hyperactive. Past Medical History Diagnosis Date ??? Arthritis ??? Asthma ??? Endometriosis ??? Fibromyalgia ??? Fibromyalgia ??? GERD (gastroesophageal reflux disease) ??? History of migraine headaches ??? Hypertension ??? Osteoporosis ??? Thyroid disease Past Surgical History Procedure Laterality Date ??? Cholecystectomy ??? Appendectomy ??? Tubal abdominal ligation ??? Keloid excision ??? section x3 ??? Gastric sleeve laparoscopic ??? Toe surgery ??? De quervain's release ??? Carpal tunnel release Bilateral ??? Hysterectomy ??? Nose surgery Family History Problem Relation Age of Onset ??? Hypertension Mother ??? Ulcerative colitis Mother ??? Psoriasis Father ??? Psoriasis Sister ??? Anxiety disorder Sister ??? Anxiety disorder Daughter ??? Anxiety disorder Maternal Aunt History Social History ??? Marital status: Unknown Spouse name: N/A ??? Number of children: N/A ??? Years of education: N/A Occupational History ??? Not on file. Social History Main Topics ??? Smoking status: Former Smoker Quit date: 1985 ??? Smokeless tobacco: Never Used ??? Alcohol use: Yes ??? Drug use: No ??? Sexual activity: Not on file Other Topics Concern ??? Not on file Social History Narrative No Known Allergies Physical Exam: CONSTITUTIONAL: Patient is well-nourished, pleasant and appears stated age. CV: Heart regular rate and rhythm without murmur, rub, or gallop. PULMONARY: Lungs are clear to ascultation. MUSCULOSKELETAL: Straight leg raising is negative. Juan R's Sign is negative. ROM in back and neck is normal. There is mild tenderness to palpation in the mid and lower back. NEUROLOGICAL: Orientation, memory, attention span, language function, and cognition have been examined and are intact. Strength is intact in the upper and lower extremities to direct testing. Muscle tone is normal throughout. Station and gait are normal. Sensation is intact to light touch testing throughout. Deep tendon reflexes are 2+ and symmetrical. Dilip's Sign is negative bilaterally. No clonus is elicited at the ankles. Coordination is intact. CRANIAL NERVES: Cranial Nerve II: Review of the fundi deomonstates no edema. Visual pang are full to confrontation. Cranial Nerve III, IV, and : PERRLADC. Extraocular movements are intact. Nystagmus is not present. Cranial Nerve V: Facial sensation is intact to light touch. Cranial Nerve VII: Muscles of facial expression demonstate no weakness or asymmetry. Cranial Nerve VIII: Hearing is intact to finger rub bilaterally. Cranial Nerve IX and X: Palate elevates symmetrically. Cranial Nerve XI: Shoulder shrug is intact bilaterally. Cranial Nerve XII: Tongue is midline without evidence of atrophy or fasciculation. Medical Decision Making Data Review: MRI studies of the thoracic and lumbar spine dated 10/07/15 are reviewed. The lumbar study reveals some mild degenerative disc and degenerative joint disease. High-grade root or canal compromise is not observed. The thoracic study demonstrates an intrinsic spinal cord tumor at about the T5-6 level. There appears to be an associated cystic collection with it. The cord is dilated at the level of thetumor. Diagnosis: The patient has an intramedullary spinal cord lesion at approximately the T5-6 level. Lesions such as ependymoma, hemangioblastoma, astrocytoma, or even cavernous angioma are possibilities. The fact that this lesion is rather sizable in the setting of a normal neurologic examination would suggest that this is a long-standing process. Treatment Options: I'm going to refer the patient for MRI studies of the brain and entire spinal axis with and withoutgadolinium to better characterize this lesion and to rule out other lesions. She will follow up thereafter. Recommendations will likely entail either close follow-up for this lesion or surgical resection. Diagnosis Plan 1. Spinal cord tumor Instructions AVS - Outpatient (Printed 10/15/2015) Additional Documentation Vitals: ?? Temp 97.7 ??F (36.5 ??C) Ht 64 (162.6 cm) Wt 191 lb (86.6 kg) BMI 33.47 kg/m2 documented in this encounter Plan of Treatment Upcoming Encounters Date Type Department Care Team (Hemant Contact Info) Description 03/10/2024 11:30 AM EST Office Visit [facility] [address] [facility] [address] [place] [address] Ivan Alvarado DO [address] [facility] [address] [place] [address] 04/24/2024 10:50 AM EST Office Visit [facility] ORTHOPEDICS & SPORTS MEDICINE [address] [facility] [address] [place] [phone] Solomon Aguilar MD [address] [facility] [address] [place], [place] [id number] documented as of this encounter Results * MRSA screen (11/25/2015 10:22 AM EDT) MRSA Screen Cx No Methicillin Resistant Staphylococcus aureus Isolated at 2 days JENNIFER 11/27/2015 6:49 AM EDT [facility] Swab Structure of anterior naris / Unknown Collection / Unknown 11/25/2015 10:22 AM EDT 11/25/2015 10:28 AM EDT us Artemio Hudson MD MICROBIOLOGY - GENERAL ORDERA BLES Final Result [facility]
[address] [place] [address], documented in this encounter Visit Diagnoses Diagnosis Spinal cord tumor- Primary Neoplasm of unspecified nature of endocrine glands and other parts of nervous system documented in this encounter Care Teams Bowling Ball Grader And Marker Relationship Specialty Start Date End Date Afua Hurley DO [facility] [place] [address] PCP - General Family Medicine 10/14/15 documented as of this encounter
--- OUTSIDE RECORDS SUMMARY | 2024-02-24 15:59 | XMS_ITS | Encounter Summary ---
[facility] Organization [facility] Address [address] [place] [id number] Care Team Providers Care Underwater Trapper Name Role Phone Afua Hurley Ellen Primary Care Provider [phone] Reason for Visit * Reason Comments Suture / Staple Removal Encounter Details Date Type Department Care Team (Late st Contact Info) Description 12/29/2015 11:30 AM EDT Office Visit [facility] NEUROSURGERY [address] [facility] [address] [place] [phone] Apro, Micheline Baldwin PA-C [address] [place] [address] Ependymoma (Primary Dx); Spinal cord tumor Social History Tobacco Use Types Packs/Day Years [...] Sign Reading Time Taken Comments Blood Pressure 128/82 12/29/2015 11:37 AM EDT Pulse - - Temperature 36.9 ??C (98.4 ??F) 12/29/2015 11:37 AM E DT Respiratory Rate - - Oxygen Saturation - - Inhaled Oxygen Concentration - - Weight 95.3 kg (210 lb) 12/29/2015 11:37 AM EDT Height 162.6 cm (5' 4 ) 12/29/2015 11:37 AM EDT Body Mass Index 36.05 12/29/2015 11:37 AM EDT documented in this encounter Progress Notes * Sneha, Micheline Baldwin PA-C - 12/29/2015 11:39 AM EDT Patient: Sue Cardona : 1960 Chart #: [id number] Date of Service: 12/29/2015 CHIEF COMPLAINT: ependymoma History of Present Illness Ms. Cardona is seen in postoperative follow-up. An 12/02/2015 she underwent T5 to T6 laminectomies for resection of intramedullary spinal cord tumor. Pathology consistent with ependymoma. She was seen postoperatively for suture removal and there was a suspected CSF leak. Nylon sutures were replaced. She is here today for evaluation of incision and suture removal. Ms. Cardona denies incisional drainage or swelling. No fevers. No headache. She does continue to have some tingling and numbness that wraps around to her abdomen. Her legs feel heavy and occasionally she has some swelling. She uses a walker to assist with ambulation. She will start physical therapy today. The following portions of the patient's history were reviewed and updated as appropriate: allergies, current medications, past family history, past medical history, past social history, past surgicalhistory and problem list. Review of Systems Constitutional: Positive for fatigue. Cardiovascular: Positive for leg swelling. Musculoskeletal: Positive for back pain. Neurological: Positive for weakness and numbness. Facial asymmetry: both feet. All other systems reviewed and are negative. Objective Vital Signs: Blood pressure 128/82, temperature 98.4 ??F (36.9 ??C), temperature source Temporal Artery , height 64 (162.6 cm), weight 210 lb (95.3 kg), not currently . Physical Exam Skin: Thoracic incision was examined and is intact without swelling or active drainage. Sutures were removed in a clean fashion and incision remained intact, again without drainage. Nursing note and vitals reviewed. Assessment/Plan Medical Decision Making: Ms. Cardona is 3 1/2 weeks status post resection of thoracic ependymoma. She was noted to have some incisional drainage thought to be CSF. This is now resolved. She will initiate formal physical therapy today focusing on lower extremity exercises. She'll avoid any repetitivearm movements. She'll follow up with Dr. Tristan álvarez approximately 6 weeks with an MRI of the thoracic spine with and without gadolinium. - MRI Thoracic Spine With & Without Contrast; Future Adelia Hoover PA-C Patient Care Team: Afua Hurley DO as PCP - General (Family Medicine) Ivan Alvarado DO as Referring Physician (Rheumatology) Zay Ramos MD as Consulting Physician (Anesthesiology) Yaquelin Cortez as Consulting Physician (Endocrinology) documented in this encounter Plan of Treatment Upcoming Encounters Date Type Department Care Team (Late st Contact Info) Description 03/10/2024 11:30 AM EST Office Visit [facility] RHEUMATOLOGY [address] [facility] [address] [place] [address] Ivan Alvarado DO 3000 [facility] [address] [place] [address] 04/24/2024 10:50 AM EST Office Visit [facility] ORTHOPEDICS & SPORTS MEDICINE [address] [facility] [address] [place] [phone] Solomon Aguilar MD [address] [facility] [address] [place] [address] documented as of this encounter Visit Diagnoses Diagnosis Ependymoma- Primary Malignant neoplasm of brain, unspecified site 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
--- OUTSIDE RECORDS SUMMARY | 2024-02-24 15:59 | XMS_ITS | Encounter Summary ---
[facility] Address [address] [place] [address] Care Team Providers Care Incoming Inspector Name Role Phone Afua Hurley Primary Care Provider [phone] Reason for Visit * Reason Comments Follow-up Encounter Details Date Type Department Care Team (Late st Contact Info) Description 12/14/2015 2:30 PM EDT Office Visit [facility] NEUROSURGERY [address] [facility] [address] [place] [phone] Bg Aj, [address] [place] [address] Spinal cord tumor (Primary Dx) Social History Tobacco Use Types Packs/Day Years Used Date Smoking Tobacco: Former Cigarettes 1 8 1 758 - 1986 Smokeless Tobacco: Never Alcohol Use [...] Sign Reading Time Taken Comments Blood Pressure 128/90 12/14/2015 2:31 PM EDT Pulse - - Temperature 36.1 ??C (97 ??F) 12/14/2015 2:31 PM EDT Respiratory Rate - - Oxygen Saturation - - Inhaled Oxygen Concentration - - Weight 94.8 kg (209 lb) 12/14/2015 2:31 PM EDT Height 162.6 cm (5' 4 ) 12/14/2015 2:31 PM EDT Body Mass Index 35.87 12/14/2015 2:31 PM EDT documented in this encounter Progress Notes * Bg Aj PA-C - 12/14/2015 2:35 PM EDT Patient: Sue Cardona : 1960 Primary Care Provider: Afua Hurley DO Requesting Physician: As above History Chief Complaint: Ependymoma History of Present Illness: Ms. Cardona is seen in follow-up. She is 1 year history of back pain. Studies ultimately revealed a fairly well circumscribed intramedullary tumor at the T5-6 level. On 12/02/2015, she underwent T5-T6 laminectomies for resection of intramedullary spinal cord tumor. Pathology has been consistent with an ependymoma. She currently has at home. She is using a walker for assist with ambulation. She describes a heaviness in her legs. She also has numbness and tingling in herfeet bilaterally. She denies any bowel or bladder dysfunction. She has discomfort in her back with any type of reaching motion. The incision itself is tender to touch. She has noticed swelling about h er incision but this is improving. She denies any headaches. She has weaned off of the decadron. Review of Systems Constitutional: Positive for activity change and appetite change. Respiratory: Positive for wheezing. Cardiovascular: Positive for leg swelling. Endocrine: Positive for polyphagia. Musculoskeletal: Positive for arthralgias, back pain and joint swelling. Neurological: Positive for weakness and numbness. All other systems reviewed and are negative. Physical Exam: Visit Vitals ??? BP 128/90 ??? Temp 97 ??F (36.1 ??C) ??? Ht 64 (162.6 cm) ??? Wt 209 lb (94.8 kg) ??? BMI 35.87 kg/m2 She is alert and oriented x3. She is in NAD. She walks with a slow and steady gait with the use of a rolling walker. Thoracic incision is healing nicely without warmth, erythema, or induration. Afterremoving 2 sutures, clear drainage (presumably CSF) is actively draining from incision line. Dr Hudson examined the incision. The area was prepped with betadine. A 3-0 nylon suture was used to seal the skin in a running lock fashion. This was run from the remaining suture as well. Upon completion, the drainage was stopped. A sterile dressing was reapplied. Medical Decision Making Diagnosis: Ependymoma s/p thoracic laminectomy for resection Treatment Options: Ms. Cardona will continue to keep her HOB elevated at all times. She will follow-up in approximately 7-8 days for wound check and suture removal. She will call in the interim with any questions or concerns. Diagnosis Plan 1. Spinal cord tumor documented in this encounter Plan of Treatment Upcoming Encounters Date Type Department Care Team (Late st Contact Info) Description 03/10/2024 11:30 AM EST Office Visit [facility] RHEUMATOLOGY [address] [facility] [address] [place] [address] Ivan Alvarado DO [address] [facility] [address] [place] [address] 04/24/2024 10:50 AM EST Office Visit [facility] ORTHOPEDICS & SPORTS MEDICINE [address] [facility] [address] [place] [phone] Solomon Aguilar MD [address] [facility] [address] [place] [address] documented as of this encounter Visit Diagnoses Diagnosis Spinal cord tumor- Primary 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
--- OUTSIDE RECORDS SUMMARY | 2024-02-24 15:59 | XMS_ITS | Encounter Summary ---
[facility] Address [address] [place] [id number] Care Team Providers Care Hand Inspector Name Role Phone Afua Hurley DO Primary Care Provider [phone] Encounter Details Date Type Department Care Team (Late st Contact Info) Description 11/20/2016 Telephone [facility] NEUROSURGERY [address] [facility] [address] [place] [address] Susie Jewell MA Social History Tobacco Use Types Packs/Day Years Used Date Smoking Tobacco: Former Cigarettes 1 8 1 655 - 7461 Smokeless Tobacco: Never Alcohol Use Standard Drinks/Week Comments No 0 (1 standard drink = 0.6 oz pur e alcohol) Comments No Sex and Gender Information Value Date Recorded Sex Assigned at Not on file Legal Sex Female 7:49 AM EDT Gender Identity Not on file Sexual Orientation Not on file documented as of this encounter Miscellaneous Notes * Telephone Encounter - Susie Jewell MA - 11/20/2016 2:49 PM EDT Called pt and adv of what Ayse said, she understood and said that she would call Dr. Hurley and let her know * Telephone Encounter - Jade Olmos PA-C - 11/20/2016 11:10 AM EDT If the x-ray report describes degenerative disc disease usually our initial recommendation, if the exam is okay, is to send the patient to physical therapy. She can follow with her primary care initially unless she has neurological dysfunction. 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 PCP asked that she call our office to see if Dr. Hudson wanted to do anything regarding this before PCP's office did anything. documented in this encounter Plan of Treatment Upcoming Encounters Date Type Department Care Team (Late st Contact Info) Description 03/10/2024 11:30 AM EST Office Visit [facility] RHEUMATOLOGY [address] [facility] [address] [place] [phone] Ivan Alvarado DO 3000 [facility] [address] [place] [address] 04/24/2024 10:50 AM EST Office Visit [facility] ORTHOPEDICS & SPORTS MEDICINE [address] [facility] [address] [place] [address] Solomon Aguilar MD [address]60 [facility] [address] [place] [address] documented as of this encounter Visit Diagnoses Not on filedocumented in this encounter Care Teams Hand Inspector Relationship Specialty Start Date End Date Afua Hurley DO [address] [place] [address] PCP - General Family Medicine 10/14/15 documented as of this encounter
--- OUTSIDE RECORDS SUMMARY | 2024-02-24 15:59 | XMS_ITS | Encounter Summary ---
Author Organization [employer] Address [address] [place] [address] Care Team Providers Care Microfilm Technician Name Role Phone Unavailable Primary Care Provider Unavailabl e Encounter Details Date Type Department Care Team (Late st Contact Info) Description 03/17/2020 Transcribed Document [facility] Family Medicine [facility] [place] [address] Provider, MD Ul[place] [address] [place] [id number] Social History Tobacco Use Types Packs/Day Years Used Date Smoking Tobacco: Never Assessed Comments Unknown Sex and Gender Information Value Date Recorded Sex Assigned at Female 10/06/2021 11:59 AM CDT Legal Sex Female 7:14 PM CDT Gender Identity Female 10/06/2021 11:59 AM CDT Sexual Orientation Not on file documented as of this encounter Miscellaneous Notes * Cerner Conversion Note - Historical ProviderMD - 03/17/2020 8:23 AM ORACLE EBS ARCHITECT DATE OF PROCEDURE: 03/11/2020 SURGEON: Van Marr DPM LOCATION: [facility]. 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 PROCEDURE PERFORMED: Neurectomy for excision of neuromas of bilateral 2nd interspace neuromas. DESCRIPTION OF PROCEDURE: The patient was wheeled into the operating, left on the gurney in the supine position. After IV sedation was achieved, local block was obtained about the patient's foot in Jones block fashion to anesthetize the 1st, 2nd and 3rd interspaces of the foot for significant anesthesia bilaterally. The feet were then scrubbed, prepped, and draped in usual aseptic manner. Esmarch bandage used to exsanguinate both feet and tourniquet 250 mm mmHg inflated above the malleoli. Attention directed to the left foot where a dorsal linear longitudinal incision was made extending from the dorsal interspace between the 2nd and 3rd toes and extended over the 2nd digit on the lateral side. We dissected through subcutaneous tissues being careful to preserve protect vital neurovascular structures on the dorsal aspect. Then put a laminar ecologist in between the 2nd and 3rd metatarsals to spread them and release the deep transverse intermetatarsal ligament. There was some small neural components present in that plantar tissue, which was resected cleanly from the surgical site. At this point, irrigated with copious amounts of sterile normal saline and closed in layers with 3-0 Vicryl and 3-0 nylon. Attention was then directed to the patient's right foot where an identical procedure was performed. Again, a dorsal linear longitudinal incision on the dorsal aspect proximal and in the interspaces starting just behind the metatarsal head the 2nd and 3rd metatarsal and extended over the 2nd toe dissected down through subcutaneous tissues being careful to preserve protect vital neurovascular structures. A laminar ecologist was inserted between the 2nd and 3rd metatarsals for spreading and identifying the deep transverse intermetatarsal ligament, which was transected as well as identifiable neuroma was traced from distal to proximal and transected and from the surgical site advanced as far proximally as possible just behind the metatarsal heads. Irrigated copious amounts of sterile normal saline and closed in layers with 3-0 Vicryl and 3-0 nylon. Both wounds were then dressed with Xeroform gauze, 4x4s, Kerlix, and outer dressings. Tourniquets were deflated. Prompt hyperemic response noted to all digits of both feet. She will be dispensed surgery shoes. She can bear some weight predominantly bathroom privileges for the next couple to 3 days. Follow DVT prophylaxis. I encouraged her to take a baby aspirin a day as well, and she will have pain medication. She was advised on pain medication and the risks associated with that before they were prescribed. We will follow with her in a week at my office. /[id number] KATH Bueno/GARCÍA / CHINO / MODL /[id number] Electronically signed by Aubrey, [facility] Conversion Licensed Practical Nurse Instructor Cerner at 07/27/2022 1:39 PM CDT documented in this encounter Plan of Treatment Not on file documented as of this encounter Visit Diagnoses Not on filedocumented in this encounter
--- OUTSIDE RECORDS SUMMARY | 2024-02-24 15:59 | XMS_ITS | Encounter Summary ---
[facility] Address [address] [place] [phone] Care Team Providers Care Wafer Polisher Name Role Phone Praveenyvette Afuajenifer Dejesusgh Primary Care Provider [phone] [phone] Reason for Referral * Diagnostic Imaging (Routine) - Closed Specialty Diagnoses / Procedures Referred By Contac t Referred To Contact Radiology Diagnoses Spinal cord tumor Procedures MRI Thoracic Spine With & Without Contrast Artemio Hudson MD [address] [place] [address] Phone: tel: fax: Referral ID Status Reason Start Date Expiration Date Visits Re quested Visits Authorized [id number] Closed 08/26/2020 11/23/2020 1 1 Reason for Visit * Reason Onset Date Comments DR. HUDSON- MRI ORDER/ FOLLOW UP 08/24/2020 Encounter Details Date Type Department Care Team (Late st Contact Info) Description 08/24/2020 Telephone [facility] NEUROSURGERY [address] [phone] Artemio Hudson MD [address] [place] [address] DR. HUDSON- MRI ORDER/ FOLLOW UP Social History Tobacco Use Types Packs/Day Years [...] * Telephone Encounter - Rosana Ortega - 08/31/2020 1:06 PM EDT All visits scheduled and patient is aware. * Telephone Encounter - Rosana Ortega - 08/26/2020 8:50 AM EDT I have left a voicemail with the patient to call back to schedule the follow up. * Telephone Encounter - John Gamez MA - 08/26/2020 8:43 AM EDT Order placed. NK * Telephone Encounter - Rosana Ortega - 08/26/2020 8:34 AM EDT There is no order on our side to schedule from. * Telephone Encounter - Micheline Duong MA - 08/25/2020 10:45 AM EDT One was placed in May this year. Is it too old? * Telephone Encounter - Rosana Ortega - 08/25/2020 9:40 AM EDT Can someone please place an order for an MRI Thoracic spine with and without for this patients follow up? * Telephone Encounter - Hillary Barnes RegSched Rep - 08/24/2020 4:35 PM EDT Caller: Sue Cardona Relationship: Self Best call back number: [phone] OR [phone] What orders are you requesting (i.e. lab or imaging): MRI T SPINE In what timeframe would the patient need to come in: SOON POSSIBLE Where will you receive your lab/imaging services: [facility] Additional notes: PATIENT AWAITING TO BE SCHEDULED BUT PATIENT/CAREGIVER CALLED TO CHECK ON SCHEDULING STATUS SINCE NO PREV CALLBACK RECEIVED YET. HUB UNABLE TO LOCATE ORDER IN CHART AT TIME OF CALL SO UNABLE TO ASSIST AT THIS TIME. PER LAST OFFICE NOTE, PATIENT IS TO FOLLOW UP IN A YEAR WITH NEW MRI. Office Visit with Artemio Hudson MD (06/03/2019) PLEASE ADVISE HOW PROVIDER WOULD LIKE TO PROC EED? PATIENT/CAREGIVER CAN BE CONTACTED WITH AN UPDATE documented in this encounter Plan of Treatment Upcoming Encounters Date Type Department Care Team (Late st Contact Info) Description 03/10/2024 11:30 AM EST Office Visit [facility] RHEUM[facility]OLOGY [address] [facility] [address] [place] [phone] Ivan Alvarado DO 3000 [facility] [place] [address] [place], [place] [phone] 04/24/2024 10:50 AM EST Office Visit [facility] ORTHOPEDICS & SPORTS MEDICINE [address] [facility] [address] [place] [address] Solomon Aguilar MD [address]60 [facility] [address] [place], [place] [phone] documented as of this encounter Results * [...] 9:[address] Cyrus Jesus MD. 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
--- OUTSIDE RECORDS SUMMARY | 2024-02-24 15:59 | XMS_ITS | Encounter Summary ---
[facility] Address [address] [place] [address] Care Team Providers Care Skin Tanner Name Role Phone Afua Hurley DO Primary Care Provider [phone] [phone] Reason for Referral * Diagnostic Imaging (Routine) - Closed Specialty Diagnoses / Procedures Referred By Contac t Referred To Contact Radiology Diagnoses Spinal cord tumor Procedures MRI Thoracic Spine With & Without Contrast Artemio Hudson MD [address] [place] [address] Phone: tel: fax: [facility] MRI [address] [place] [address] Phone: tel: Referral ID Status Reason Start Date Expiration Date Visits Re quested Visits Authorized [id number] Closed 05/01/2018 05/30/2018 1 1 Encounter Details Date Type Department Care Team (Late st Contact Info) Description 05/15/2017 2:15 PM EST Office Visit [facility] NEUROSURGERY [address] [place] [phone] Artemio Hudson MD [address] [place] [address] Spinal cord tumor (Primary Dx) Social History Tobacco Use Types Packs/Day Years Used Date Smoking Tobacco: Former Cigarettes 1 8 1 218 - 1986 Smokeless Tobacco: Never Alcohol Use [...] - Pulse - - Temperature 36.3 ??C (97.4 ??F) 05/15/2017 3:11 PM ES T Respiratory Rate - - Oxygen Saturation - - Inhaled Oxygen Concentration - - Weight 101 kg (223 lb) 05/15/2017 3:11 PM EST Height 162.6 cm (5' 4 ) 05/15/2017 3:11 PM EST Body Mass Index 38.28 05/15/2017 3:11 PM EST documented in this encounter Patient Instructions * Patient Instructions* Miya Patrick MA - 05/15/2017 2:15 PM EST Follow up with Dr. Hudson in one year with new MRI documented in this encounter Progress Notes * Artemio Hudson MD - 05/15/2017 2:15 PM EST Patient: Sue Cardona : 1960 Primary Care Provider: Afua Hurley DO Requesting Provider: As above History Chief Complaint: Back pain. History of Present Illness: Ms. Macedo is a 57-year-old woman who presented with increasing mid back [...] bowel urgency. She reports no bladder difficulties. She continues to complain of a dysesthetic or hyper sensitive feeling in her legs all the way up to the groin. Her legs sometimes feel a bit wobbly when she begins to get up and about. Review of Systems Constitutional: Negative for activity [...] sores, hematuria and urgency. Musculoskeletal: Positive for arthralgias and back pain. Negative for gait problem, joint swelling,myalgias, neck pain and neck stiffness. [...] patientis not nervous/anxious and is not hyperactive. The patient's past medical history, past surgical history, family history, and social history have been reviewed at length in the electronic medical record. Physical Exam: Temp 97.4 ??F (36.3 ??C) (Temporal Artery ) Ht 162.6 cm (64 ) Wt 101 kg (223 lb) BMI 38.28 kg/m2 MUSCULOSKELETAL: Straight leg raising is negative. Juan R's Sign is negative. ROM in back is normal. Tenderness in the back to palpation is not observed. NEUROLOGICAL: Strength is intact in the lower extremities to direct testing. Muscle tone is normal throughout. Station and gait are normal. Sensation is altered in the entirety of her legs. Touching her legs induces a dysesthetic feeling. Deep tendon reflexes are 1+ and symmetrical. Coordination is intact. Medical Decision Making Data Review: Follow-up MRI of the thoracic spine with and without gadolinium demonstrates some postsurgical changes in the midthoracic spine. There is no evidence of recurrent tumor. Diagnosis: Thoracic ependymoma status post resection. Treatment Options: Ms. Cardona is doing well. She will follow-up in 1 year with a new MRI of the thoracic spine with and without gadolinium. Diagnosis Plan 1. Spinal cord tumor MRI Thoracic Spine With & Without Contrast Scribed for Artemio Hudson MD by Miya Patrick CMA on 05/15/2017 at 3:11 PM I, Dr. Hudson, personally performed the services described in the documentation, as scribed in my presence, and it is both accurate and complete. documented in this encounter Plan of Treatment Upcoming Encounters Date Type Department Care Team (Late st Contact Info) Description 03/10/2024 11:30 AM EST Office Visit [facility] RHEUMATOLOGY [address] [facility] [address] [place] [address] Ivan Alvarado DO [address] [facility] [address] [place] [address] 04/24/2024 10:50 AM EST Office Visit [facility] ORTHOPEDICS & SPORTS MEDICINE [address] [facility] [address] [place] [phone] Solomon Aguilar MD [address] [facility] [address] [place] [address] documented as of this encounter Results * MRI Thoracic Spine With & Without Contrast (05/14/2018 11:46 AM EST) Anatomical Region Laterality Modality Spine, T-spine N/A Magnetic Resonan ce 05/14/2018 4:41 PM EST Impressions 05/14/2018 4:54 PM EST There is a traction deformity involving the cord at T5-T6 consistent with postoperative change. There are no new findings. There is no abnormal contrast enhancement. The exam is unchanged when compared with the examinations of 2015 and 2016. D: ??05/14/2018 E: ??05/14/2018 ?? This report was finalized on 05/14/2018 4:[address] Chandler Solis MD. 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 ? TECHNIQUE: Sagittal and axial images of the thoracic spine are displayed with images acquired prior to and following intravenous contrast. COMPARISON: 09/20/2016 and 05/15/2017. FINDINGS: Once again there is traction deformity of the cord at T5-T6 posteriorly consistent with postoperative change. There is no evidence of a mass. There is no abnormal contrast enhancement. Small incidental hemangiomas are noted at T3 and T9. There has been no change since the previous examinations. 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 TECHNIQUE: Sagittal and axial images of the thoracic spine are displayed with images acquired prior to and following intravenous contrast. COMPARISON: 09/20/2016 and 05/15/2017. FINDINGS: Once again there is traction deformity of the cord at T5-T6 posteriorly consistent with postoperative change. There is no evidence of a mass. There is no abnormal contrast enhancement. Small incidental hemangiomas are noted at T3 and T9. There has been no change since the previous examinations. IMPRESSION: There is a traction deformity involving the cord at T5-T6 consistent with postoperative change. There are no new findings. There is no abnormal contrast enhancement. The exam is unchanged when compared with the examinations of 2015 and 2016. E: 05/14/2018 This report was finalized on 05/14/2018 4:[address] Chandler Solis MD. 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
--- OUTSIDE RECORDS SUMMARY | 2024-02-24 15:59 | XMS_ITS | Encounter Summary ---
[facility] Address [address] [place] [address] Care Team Providers Care [employer] Ha[employer] Truck Driver Name Role Phone Afua Hurley Primary Care Provider [phone] Reason for Visit * Reason Comments Follow-up Encounter Details Date Type Department Care Team (Late st Contact Info) Description 10/29/2015 10:00 AM EDT Office Visit [facility] [address] [facility] [place] [place] [address] Artemio Hudson MD [address] [facility] [address] [place] [address] Spinal cord tumor (Primary Dx) Social History Tobacco Use Types Packs/Day Years Used Date Smoking Tobacco: Former Cigarettes Q uit: 1986 Smokeless Tobacco: Never Alcohol Use Standard [...] Pressure - - Pulse - - Temperature 35.4 ??C (95.7 ??F) 10/29/2015 10:08 AM E DT Respiratory Rate - - Oxygen Saturation - - Inhaled Oxygen Concentration - - Weight 88.5 kg (195 lb) 10/29/2015 10:08 AM EDT Height 162.6 cm (5' 4 ) 10/29/2015 10:08 AM EDT Body Mass Index 33.47 10/29/2015 10:08 AM EDT documented in this encounter Progress Notes * Artemio Hudson MD - 10/29/2015 10:06 AM EDT Patient: Sue Cardona : 1960 Primary Care Provider: Afua Hurley DO Requesting Provider: As above History Chief Complaint: Mid back pain and muscle spasm. History of Present Illness: The patient is a 55-year-old woman with an 8-12 month history of pain in her middle back at about the bra line. She's had associated spasms. She's had no thoracic radicular symptoms involving her chest or abdomen. She has also chronically had some low-grade low back pain. Sometimes she will get tingling in her feet and legs. She has no bowel or bladder dysfunction. Shedenies weight loss, fever, or chills. Review of Systems Constitutional: Positive for fatigue. [...] allergies and immunocompromised state. Neurological: Positive for weakness. Negative for dizziness, tremors, seizures, syncope, facial asymmetry, speech difficulty, light-headedness, numbness and headaches. Hematological: Negative for adenopathy. Does not bruise/bleed easily. Psychiatric/Behavioral: Negative for agitation, behavioral problems, confusion, decreased concentration, dysphoric mood, self-injury, sleep disturbance and suicidal ideas. The patient is nervous/anxious. The patient is not hyperactive. Physical Exam: MUSCULOSKELETAL: Straight leg raising is negative. Juan R's Sign is negative. ROM in back normal. Tenderness in the back to palpation is not observed. NEUROLOGICAL: Strength is intact in the lower extremities to direct testing. Muscle tone is normal throughout. Station and gait are normal. Sensation is intact to light touch testing throughout. Deep tendon reflexes are 2+ and symmetrical. Coordination is intact. Medical Decision Making Data Review: MRI studies of the entire brain and spinal axis with and without gadolinium have been obtained. There is enhancement of the tissue portion of the tumor noted in her mid thoracic spine. Once again there is an associated cyst. This lesion takes up a substantial portion of the entire spinal cord at the afflicted segments, approximately T5-T6. There is some degenerative change in her cervical and lumbar spine that is mild. I do not see other enhancing lesions in the brain or elsewhere in the spine. Diagnosis: The above-noted lesion almost certainly represents a neoplasm. This will could represent a low-grade astrocytoma or potentially a hemangioblastoma. Treatment Options: I have recommended midthoracic laminectomies to resect the spinal cord lesion. The goal of surgery would be to achieve complete resection of the tumor. That may or may not be feasible depending on the consistency and nature of the tumor itself. This procedure is certainly not without risk. In addition to the normal surgical risks there is clearly a risk of her developing weakness or even yokasta paralysis. There is a risk of having a sensory loss or bowel/bladder dysfunction. It's also conceivable that I will not be able to completely resect the tumor. The patient is relatively young. This tumor is already relatively large. I'm concerned that if we do not address this lesion surgically that she will go on to develop neurologic deficits .The nature of the procedure as well as the potential risks, complications, limitations, and alternatives to the procedure were discussed at length with the patient and her and they have agreed to proceed with surgery. Diagnosis Plan 1. Spinal cord tumor documented in this encounter Plan of Treatment Upcoming Encounters Date Type Department Care Team (Late st Contact Info) Description 03/10/2024 11:30 AM EST Office Visit [facility]Y [address] [facility] [address] [place] [phone] Ivan Alvarado DO [address] [facility] [address] [place], [place] [id number] 04/24/2024 10:50 AM EST Office Visit 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
--- OUTSIDE RECORDS SUMMARY | 2024-02-24 15:59 | XMS_ITS | Encounter Summary ---
[facility] Address [address] [place] [address] Care Team Providers Care Manager Regional Name Role Phone Afua Hurley DO Primary Care Provider [phone] Reason for Referral * Diagnostic Imaging (Routine) - Closed Specialty Diagnoses / Procedures Referred By Contac t Referred To Contact Radiology Diagnoses Spinal cord tumor Procedures MRI Thoracic Spine With & Without Contrast Artemio Hudson MD [address] [place] [address] Phone: tel: fax: [place] [address] Phone: tel: Referral ID Status Reason Start Date Expiration Date Visits Re quested Visits Authorized [id number] Closed 04/19/2017 05/18/2017 1 1 Reason for Visit * Diagnostic Imaging (Routine) - Closed Specialty Diagnoses / Procedures Referred By Contac t Referred To Contact Radiology Diagnoses Spinal cord tumor Procedures MRI Thoracic Spine With & Without Contrast Artemio Hudson MD [address] [place] [address] Phone: tel: fax: [place] [address] Phone: tel: Referral ID Status Reason Start Date Expiration Date Visits Re quested Visits Authorized [id number] Closed 04/19/2017 05/18/2017 1 1 Encounter Details Date Type Department Care Team (Late st Contact Info) Description 05/15/2017 11:17 AM EST - 05/15/2017 11:59 PM EST Hospital Encounter [facility] MRI [address] [place] [phone] Artemio Hudson MD [address] [facility] [place] [address] Spinal cord tumor Discharge Disposition: Home or Self Care Social History Tobacco Use Types Packs/Day Years Used Date Smoking Tobacco: Former Cigarettes 1 8 1 978 - 1643 Smokeless Tobacco: Never Alcohol Use Standard Drinks/Week [...] 5 mg by mouth every night. 3 DULoxetine (CYMBALTA) 60 MG capsule Take 1 [...] as needed for moderate pain (4-6). 3 traZODone (DESYREL) 50 MG tablet Take 50 mg by mouth Every Night. 1 documented as of this encounter Plan of Treatment Upcoming Encounters Date Type Department Care Team (Late st Contact Info) Description 03/10/2024 11:30 AM EST Office Visit [facility] RHEUMATOLOGY [address] [facility] [address] [place] [address] Ivan Alvarado DO [address] [facility] [address] [place] [address] 04/24/2024 10:50 AM EST Office Visit [facility] ORTHOPEDICS & SPORTS MEDICINE [address] [facility] [address] [place] [address] Solomon Aguilar MD [address] [facility] [address] [place] [address] documented as of this encounter Procedures Procedure Name Priority Date/Time Associated Diagnosis Comments MRI THORACIC SPINE W WO CONTRAST Routine 05/15/2017 1:31 PM EST Spinal cord tumor POCT CREATININE Routine 05/15/2017 12:41 PM EST documented in this encounter Results * MRI [...] ORDERABLES Final Resu lt * POC Creatinine (05/15/2017 12:41 PM EST) Creatinine 1.10 0.60 - 1.30 mg/dL 05/18/2017 5:41 AM EST [facility] Comment:Serial Number: [id number] Blood 05/15/2017 12:4 1 PM EST 05/18/2017 5:41 AM EST Artemio Hudson MD POINT OF CARE TEST ORDERABLES Final Result [facility]
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 documented in this encounter Administered Medications Inactive Administered Medications - up to 3 most recent administrations Medication Order MAR Action Action Date Dose Rate Site gadobenate dimeglumine (MULTIHANCE) injection 20 mL 20 mL, Intravenous, Once in Imaging, On Tu05/15/17 at 1415, For 1 dose, Vesicant; admin as rapid bolus; flush with 5 mL NS after admin or 20 mL for renal or aortoiliofemoral vasculature Given 05/15/2017 2:15 PM EST 20 mL documented in this encounter Care Teams Manager Regional Relationship Specialty Start Date End Date Afua Hurley DO [address] [place] [address] PCP - General Family Medicine 10/14/15 documented as of this encounter
--- OUTSIDE RECORDS SUMMARY | 2024-02-24 15:59 | XMS_ITS | Encounter Summary ---
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 OR [address] [place] [id number] Artemio Hudson MD [address] [facility] [address] [place] [address] 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 Social History Tobacco Use Types Packs/Day Years Used Date Smoking Tobacco: Former Cigarettes 1 8 1 428 - 2658 Smokeless Tobacco: Never Alcohol Use Standard Drinks/Week [...] Sign Reading Time Taken Comments Blood Pressure 133/85 12/02/2015 6:23 AM EDT Pulse 76 12/02/2015 6:23 AM EDT Temperature 36.5 ??C (97.7 ??F) 12/02/2015 6:23 AM ED T Respiratory Rate 16 12/02/2015 6:23 AM EDT Oxygen Saturation 99% 12/02/2015 6:23 AM EDT Inhaled Oxygen Concentration - - Weight [...] Discharge Medications Sue Cardona Home Medication Instructions CHRISTIE:[id number] Printed on:12/07/15 0770 Medication Information albuterol (PROVENTIL HFA;VENTOLIN HFA) 108 [...] Time Provider Department Center 12/14/2015 2:30 PM DESTINEE Urban [facility] None Referrals and Follow-ups to Schedule [...] be sent through Care Everywhere. * LAMINECTOMY (KENYAN) * ACETAMINOPHEN; OXYCODONE TABLETS (KENYAN) * WALKER USE (KENYAN) documented in this encounter Medications at Time [...] AM EDT Discharge Planning Assessment [facility] Patient Name: Sue Cardona Today's Date: 12/03/2015 Admit Date: 12/02/2015 Discharge Needs Assessment 12/03/15 09 Living Environment Lives With spouse Quality Of Family Relationships supportive Able to Return to Prior Living Arrangements yes Living Arrangement Comments Ms. Cardona lives with her in a two story home in [facility]. Discharge Needs Assessment Readmission Within The Last 30 Days no previous admission in last 30 days Equipment Currently Used at Home none Equipment Needed After Discharge walker, rolling Transportation Available car;family or friend will provide Discharge Disposition -- Outpatient physical therapy at [facility] [place], [place]. Discharge Plan 12/03/15 09 Case Management/Social Work Plan Patient/Family In Agreement With Plan yes Additional Comments Met with Ms. Cardona at the bedside to initiate discharge planning. Ms. Cardona is independent with her ADL's. She said that she would like to have a rolling walker and had no preference for provider. CM contacted [facility] and they are to deliver the walker to the bedside today. Ms. Cardona would also like to go to outpatient physical therapy with [facility]. Please provide a prescription for PT at discharge if agreeable. Thank you. CM will continue tofollow. 12/03/15 09 Case Management/Social Work Plan Plan Home Discharge Placement No information found Demographic Summary 12/03/15 0916 Referral Information Admission Type inpatient Reason For Consult discharge planning Contact Information Permission Granted to Share Information With disability case managerhorse stud manager Physician Information Name Afua Hurley in [place], [place]. Functional Status 12/03/15 0917 Functional Status [...] prescription drug coverage. 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 Psychosocial None Abuse/Neglect None Legal None [...] 2 (two) times a day. 12/01/2015 at 2130 ??? cyclobenzaprine (FLEXERIL) 10 MG tablet Take 5 mg by mouth every night. 12/01/2015 at 2200 ??? DULoxetine (CYMBALTA) 60 MG capsule Take 60 mg by mouth 2 (two) times a day. 12/01/2015 at 2130 ??? gabapentin (NEURONTIN) 600 MG tablet Take [...] Outcome: Ongoing (interventions implemented as appropriate) * Chapis Kerns RN - 12/04/2015 12:19 AM EDT Problem: Pain, Acute (Adult) Intervention: Monitor/Manage Analgesia 12/04/1518 Manage Acute Burn Pain Bowel Intervention ambulation promoted;privacy promoted;adequate fluid intake promoted Pain Management Interventions painful stimuli minimized;relaxation techniques promoted;diversional activity encouraged * Chapis Kerns RN - 12/04/2015 12:19 AM EDT Problem: Pain, Acute (Adult) Goal: Acceptable Pain Control/Comfort Level Outcome: Ongoing (interventions implemented as appropriate) 12/04/1518 Pain, Acute (Adult) Acceptable Pain Control/Comfort Level making progress toward outcome * Chapis Kerns RN - 12/04/2015 12:18 AM EDT Problem: Pain, Acute (Adult) Goal: Identify Related Risk Factors and Signs and Symptoms Outcome: Ongoing (interventions implemented as appropriate) 12/04/15 0018 Pain, Acute Related Risk Factors (Acute Pain) surgery * Shirley Andersen RN - 12/03/2015 6:00 PM EDT Problem: Patient Care Overview (Adult) Goal: Plan of Care Review Outcome: Ongoing (interventions implemented as appropriate) 12/03/159 Coping/Psychosocial Response Interventions Plan Of Care Reviewed With patient;spouse Patient Care Overview Progress improving Problem: Laminectomy/Foraminotomy/Discectomy (Adult) Goal: Signs and Symptoms of Listed Potential Problems Will be Absent or Manageable (Laminectomy/Foraminotomy/Discectomy) Outcome: Ongoing (interventions implemented as appropriate) 12/03/151758 Laminectomy/Foraminotomy/Discectomy Problems Assessed (Laminectomy/Laminotomy/Discectomy) all Problems Present (Laminectomy/Laminotomy/Discectomy) pain * Shirley Andersen RN - 12/02/2015 7:31 PM EDT Problem: Patient Care Overview (Adult) Goal: Plan of Care Review Outcome: Ongoing (interventions implemented as appropriate) 12/02/151930 Coping/Psychosocial Response Interventions Plan Of Care Reviewed With patient;spouse Patient Care Overview Progress improving Problem: Perioperative Period (Adult) Goal: Signs and Symptoms of Listed Potential Problems Will be Absent or Manageable (Perioperative Period) Outcome: Ongoing (interventions implemented as appropriate) 12/02/15 193 Perioperative Period Problems Assessed (Perioperative Period) all [...] LUMBAR SPINAL TUMOR REMOVAL Procedure Note Sue Cardona 12/02/2015 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 Codes: Procedure(s): 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 Surgeon(s): MD Solomon Alston MD Anesthesia: General Staff: Mill Feeder: Miya Moses RN; Nimco Varghese RN Ice Cream Dispenser: Artemio Naik, RT Scrub Person: Jennifer Boss; Sal Mesa B2B Sales Consultant: Susana Willard Noxious Weeds And Pest Inspector: Bg Aj PA-C Estimated Blood Loss: 150 mL Specimens: ID Type Source Tests Collected by Time Destination A : SPINAL CORD TUMOR Tissue Spine, Lumbar TISSUE EXAM Artemio Hudson MD 12/02/2015905 B : TUMOR FOR PERMANENT Tissue Spine, [...] Decadron. MD ZAFAR Carlson/jeanine Voice Rec. ID #[id number] Voice Original ID #[id number] Doc ID #[id number] Rev. #1 cc: documented in this encounter Miscellaneous Notes * Significant Note - Mag Crabtree RN - 12/04/2015 5:41 PM EDT 12/04/15 1741 Discharge of Care Discharge Mode wheelchair Discharge Destination home Discharged Accompanied By spouse Discharge Contact Information if Applicable see chart Discharge Teaching Done Yes Learning Method Explanation;Teach Back;Written Materials documented in this encounter Plan of Treatment Upcoming Encounters Date Type Department Care Team (Late st Contact Info) Description 03/10/2024 11:30 AM EST Office Visit [facility] RHEUMATOLOGY [address] [phone] Ivan Alvarado DO [address] [facility] [address] [place] [address] 04/24/2024 10:50 AM EST Office Visit [facility] ORTHOPEDICS & SPORTS MEDICINE [address] [facility] [address] [place] [address] Solomon Aguilar MD [address] [facility] [address] [place] [address] documented as of this encounter Procedures Procedure [...] Case Report Surgical Pathology Report ? Case: [id number] ? Authorizing Provider: ??Artemio Hudson MD ?Collected: ? 12/02/2015 09:06 AM ? Ordering Location: ? [facility] ?? Received: ?12/02/2015 09:31 AM ? OR ? Pathologist: ? Kevin Aj MD ? Intraop: ? Kevin Aj MD ? Specimens: ?? 1) - Spine, Thoracic, SPINAL CORD TUMOR ? 2) - Spine, Thoracic, TUMOR FOR PERMANENT ? 3) - Spine, Thoracic, sonapet aspirate ? 12/22/2015 3:59 PM EDT [facility] Integrated Oncology, Addendum 1p19q Testing performed at outside laboratory. See scanned report. 12/22/2015 3:59 PM EDT [facility] Addendum electronically signed by Kevin Aj MD on 12/15/2015 at 5:37 PM Clinical Information The working history is spinal cord tumor. 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 DGD/mbc 12/22/2015 3:59 PM EDT [facility] Amendment electronically signed by Kevin Aj MD on 12/22/2015 at 3:59 PM Comment Testing performed at outside laboratory. See scanned report. 12/22/2015 3:59 PM EDT [facility] Intraoperative Consultation Frozen section: Verbal report given to Dr. Hudson via speakerphone on 12/02/2015 at 9:32 AM. 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 (DGD) 12/22/2015 3:59 PM EDT [facility] Gross Description Specimen 1 received fresh [...] cassette 3. HBM/sm 12/22/2015 3:59 PM EDT [facility] Microscopic Description Sections of specimens 1 [...] when available. DGD/mbc 12/22/2015 3:59 PM EDT [facility] Embedded Images 6 3:59 PM T [facility] Tissue Thoracic spine structure / Unknown 12/02/2015 9:06 AM EDT 12/02/2015 9:31 AM EDT Tissue specimen (specimen) Thoracic spine structure / Unknown 12/02/2015 9:06 AM EDT 12/02/2015 10:39 AM EDT Tissue specimen (specimen) Thoracic spine structure / Unknown 12/02/2015 9:36 AM EDT 12/02/2015 10:39 AM EDT Artemio Hudson MD PATHOLOGY/CYTOLOGY ORDERABLES Edited Result - Final [facility]
[address] [place] [address], * Routine FL c arm during surgery [...] 12:[address] Loraine Gonzalez MD. Artemio Hudson MD IMG FLUOROSCOPY ORDERABLES Fi [...] mg, Nebulization, As Needed, Wheezing, Starting on Sun12/02/15 at 1217 baclofen (LIORESAL) tablet 20 mg 20 mg, Oral, 2 Times Daily, First dose on Sun12/02/15 at 1230, Take with food if GI upset occurs. Given 12/04/2015 5:07 PM EDT 20 mg Given 12/04/2015 8:12 AM EDT 20 mg Given 12/03/2015 5:13 PM EDT 20 mg bupivacaine-EPINEPHrine PF (MARCAINE w/EPI) 0.25% -1:622479 injection As Needed, Starting on Sun12/02/15 at 0959 Given 12/02/2015 9:59 AM EDT 3 0 mL Back celecoxib (CeleBREX) capsule 200 mg 200 mg, [...] Scheduled, First dose (after last modification) on 8/26/16 at 1400, For IV administration. May be [...] Given 12/03/2015 5:13 PM EDT 60 mg floseal (FLOSEAL) injection As Needed, Starting on Sun12/02/15 at 0751 Given 12/02/2015 7:51 AM EDT 10 mL Back floseal (FLOSEAL) injection As Needed, Starting on Sun12/02/15 at 0752 Given 12/02/2015 7:52 AM EDT 10 mL fluticasone (FLONASE) 50 MCG/ACT nasal spray 2 spray 2 spray, Nasal, Daily, First dose on Sun12/02/15 at 1230 Given 12/04/2015 8:12 AM EDT 2 sprays Given 12/03/2015 8:32 AM EDT 2 sprays Given 12/02/2015 1:24 PM EDT 2 sprays gabapentin (NEURONTIN) capsule 600 mg 600 mg, Oral, 3 Times Daily, First dose on Sun12/02/15 at 1600 Given 12/04/2015 3:37 PM EDT 600 mg Given 12/04/2015 8:12 AM EDT 600 mg Given 12/03/2015 8:57 PM EDT 600 mg gelatin absorbable (GELFOAM) sponge As Needed, Starting on Sun12/02/15 at 0750 Given 12/02/2015 7:50 AM EDT 1 each Back montelukast (SINGULAIR) tablet 10 mg 10 mg, Oral, Nightly, First dose on Sun12/02/15 at 2100 Given 12/03/2015 8:55 PM EDT [...] For 10 days naloxone (NARCAN) injection 0.4 mg 0.4 mg, [...] period. Given 12/04/2015 1:31 PM EDT 1 tablet Given 12/03/2015 4:01 PM EDT 1 tablet Given 12/03/2015 5:26 AM EDT 1 tablet pantoprazole (PROTONIX) EC tablet 40 mg 40 mg, Oral, Every Cell Biology Scientist, First dose on Poonam 12/02/15 at 1300, [...] THEN promethazine IF ondansetron is ineffective. {BKC} sodium chloride 1,000 mL with bacitracin 50,000 Units, polymyxin B 500,000 Units irrigation As Needed, Starting on Poonam 12/02/15 at 0747 Given 12/02/2015 7:47 AM EDT 1,000 mL Back thrombin (THROMBIN-JMI) kit As Needed, Starting on Poonam 12/02/15 at 0750 Given 12/02/2015 8:27 AM EDT 5,000 Units Back Given 12/02/2015 8:13 AM EDT 5,000 Units B ack Given 12/02/2015 7:50 AM EDT 5,000 Units B ack documented in this encounter Active and Recently [...] RN) 0812 (Given - Provider: Mag Crabtree, DOUG)170 (Given - Provider: Mag Crabtree RN) ceFAZolin in dextrose (ANCEF) IVPB solution 2 [...] RN) 0812 (Given - Provider: Mag Crabtree, DOUG)170 (Given - Provider: Mag Crabtree RN) cyclobenzaprine (FLEXERIL) tablet 5 mg 5 mg, Oral, Nightly, First dose on Poonam 12/02/15 at 2100 2241 (Given - Provider: Maura Hwang RN) 2055 (Given - Provider: Chapis Kerns RN) dexamethasone (DECADRON) 10 mg in sodium chloride 0.9 % IVPB (COMPLETED) 10 mg, Intravenous, Every 6 Hours, First dose on Poonam 12/02/15 at 0630, For 1 dose 0720 (New Bag - Provider: Diann Kimbrough CRNA) dexamethasone (DECADRON) injection 4 mg(Linked Group 1) 4 mg, Intravenous, Every 8 Hours Scheduled, First dose (after last modification) on Sun12/03/15 at 1400, For IV administration. May be pushed over a minimum of 1 minute. 1409 (Not Given: See Alt - Provider: Shirley Andersen RN)2056 (Not Given: See Alt - Provider: Chapis Kerns RN)2200 (Not Given: See Alt - Provider: Chapis Kerns RN) 0511 (Given - Provider: Chapis Kerns RN)1331 (Not Given: See Alt - Provider: Mag Crabtree RN) dexamethasone (DECADRON) tablet 4 mg (CANCELED) 4 mg, Oral, Every 6 Hours Scheduled, First dose on Poonam 12/02/15 at 1230, Take with food. 1324 (Given - Provider: Shirley Andersen RN)1829 (Given - Provider: Shirley Andersen RN)2248 (Given - Provider: Maura Hwang RN) 0000 (Due)0526 (Given - Provider: Maura Hwang RN) dexamethasone (DECADRON) tablet 4 mg(Linked Group 1) 4 mg, Oral, Every 8 Hours Scheduled, First dose (after last modification) on Sun12/03/15 at 1400, Take with food. 1409 (Given - Provider: Shirley Andersen RN)2057 (Given - Provider: Chapis Kerns RN)2200 (Canceled Entry - Provider: Chapis Kerns RN) 0511 (Not Given: See Alt - Provider: Chapis Kerns RN)1331 (Given - Provider: Mag Crabtree RN) [...] First dose on Poonam 12/02/15 at 1230 1324 (Given - Provider: Shirley Andersen RN) 0832 (Given - Provider: Shirley Andersen RN) 0812 (Given - Provider: Mag Crabtree, DOUG) gabapentin (NEURONTIN) capsule 600 mg 600 mg, Oral, 3 Times Daily, First dose on Poonam 12/02/15 at 1600 1659 (Given - Provider: Shirley Andersen, DOUG)2241 (Given - Provider: Maura Hwang, DOUG) 0832 (Given - Provider: Shirley Andersen, DOUG)1601 (Given - Provider: Shirley Andersen, RN)2057 (Given - Provider: Chapis Kerns, DOUG) 0812 (Given - Provider: Mag Crabtree, DOUG)1537 (Given - Provider: Mag Crabtree, DOUG) lidocaine PF (XYLOCAINE) 1 % injection 0.5 mL (COMPLETED) 0.5 mL, Injection, Once, On Poonam 12/02/15 at 0715, For 1 dose 0618 (Given - Provider: Janey Jones RN) montelukast (SINGULAIR) tablet 10 mg 10 mg, Oral, Nightly, First dose on Poonam 12/02/15 at 2100 2241 (Given - Provider: Maura Hwang, DOUG) 2055 (Given - Provider: Chapis Kerns, DOUG) mupirocin (BACTROBAN) 2 % nasal ointment 1 application (COMPLETED) 1 application , Each Nare, Once, On Poonam 12/02/15 at 0600, For 1 dose, Instill into nares the night before and AM of surgery as directed. {[facility]} 0632 (Given - Provider: Janey Jones RN) pantoprazole (PROTONIX) EC tablet 40 mg 40 mg, Oral, Every Cell Biology Scientist, First dose on Poonam 12/02/15 at 1300, Formulary change for omeprazole 20 mg daily Swallow whole; do not crush, split, or chew. 1324 (Given - Provider: Shirley Andersen, DOUG) 0526 (Given - Provider: Maura Hwang RN) 0511 (Given - Provider: Chapis Kerns, RN) Continuous Medication Order 12/02/2015 12/03/2015 12/04/2015 lactated ringers infusion (CANCELED) 9 mL/hr, Intravenous, Continuous, Starting on Poonam 12/02/15 at 0715 0620 (New Bag - Provider: Janey Jones RN)0706 (New Bag - Provider: Diann Kimbrough CRNA)0822 (Anesthesia Volume Adjustment - Provider: Diann Kimbrough CRNA) lactated ringers infusion (CANCELED) 90 mL/hr, Intravenous, Continuous, Starting on Poonam 12/02/15 at 1100 1211 (New Bag - Provider: [...] at 1019 bupivacaine-EPINEPHrine PF (MARCAINE w/EPI) 0.25% -1:192421 injection (CANCELED) As Needed, Starting on Poonam [...] Andersen, RN)1829 (Given - Provider: Shirley Andersen, RN)2241 (Given - Provider: Maura Hwang, DOUG) 0526 (Given - Provider: Maura Hwang, DOUG)1601 (Given - Provider: Shirley Andersen, DOUG) 1331 (Given - Provider: Mag Crabtree RN) [...] Units irrigation (CANCELED) As Needed, Starting on Sun12/02/15 at 0747 0747 (Given - Provider: Artemio Hudson MD) thrombin (THROMBIN-JMI) kit (CANCELED) As Needed, Starting on Sun12/02/15 at 0750 0750 (Given - Provider: Artemio [...] ineffective. documented in this encounter Care Teams Popcorn Vendor Relationship Specialty Start Date End Date Afua Hurley DO [address] [place] [address] PCP - General Family Medicine 10/14/15 documented as of this encounter
--- OUTSIDE RECORDS SUMMARY | 2024-02-24 15:59 | XMS_ITS | Encounter Summary ---
[facility] Address [address] [place] [id number] Care Team Providers Care Waistline Joiner Overlock Name Role Phone Afua Hurley DO Primary Care Provider [phone] [phone] Reason for Referral * Diagnostic Imaging (Routine) - Closed Specialty Diagnoses / Procedures Referred By Contac t Referred To Contact Radiology Diagnoses Spinal cord tumor Procedures MRI Thoracic Spine With & Without Contrast Artemio Hudson MD [address] [place] [address] Phone: tel: fax: [facility] [address] [place] [address] Phone: tel: Referral ID Status Reason Start Date Expiration Date Visits Re quested Visits Authorized [id number] Closed 05/09/2019 06/07/2019 1 1 Encounter Details Date Type Department Care Team (Late st Contact Info) Description 04/23/2019 Telephone [facility] NEUROSURGERY [address] [phone] Artemio Hudson MD [address] [place] [address] Social History Tobacco Use Types Packs/Day Years [...] encounter Miscellaneous Notes * Telephone Encounter - Mireya Reed - 04/24/2019 2:18 PM EST MRI and follow up have been scheduled. Patient made aware of date and times. Paperwork was mailed to update chart. * Telephone Encounter - Miya Patrick MA - 04/24/2019 11:17 AM EST Order signed. * Telephone Encounter - Mireya Reed - 04/24/2019 10:51 AM EST Order needs to be signed. * Telephone Encounter - Adele Price - 04/23/2019 3:28 PM EST Order pended. * Telephone Encounter - Mireya Reed - 04/23/2019 10:30 AM EST I called patient to set up her 1 yr follow up with MRI. She would like to schedule this at the end of 2019 (old order expires 05/14/19). Please pend a new order for MRI thoracic spine with and without contrast. documented in this encounter Plan of Treatment Upcoming Encounters Date Type Department Care Team (Late st Contact Info) Description 03/10/2024 11:30 AM EST Office Visit [facility] RHEUMATOLOGY [address] [facility] [address] [place] [phone] Ivan Alvarado DO [address] [facility] [address] [place], [place] [id number] 04/24/2024 10:50 AM EST Office Visit [facility] ORTHOPEDICS & SPORTS MEDICINE [address] [facility] [address] [place] [address] Solomon Aguilar MD [address] [facility] [address] [place] [address] documented as of this encounter Results * MRI Thoracic Spine With & Without Contrast (06/03/2019 11:30 AM EST) Anatomical Region Laterality Modality Spine, T-spine N/A Magnetic Resonan ce 06/03/2019 12:1 0 PM EST Impressions 06/03/2019 1:07 PM EST Stable appearance of the thoracic cord with tethering and postsurgical changes in the midthoracic spine as seen on prior without evidence of recurrence as there is no abnormal soft tissue nodular enhancement at this site or elsewhere of intramedullary or intradural involvement with stable postsurgical changes noted. No advanced degenerative changes or aggressive bone marrow signal findings noted. ?? D: ??06/03/2019 E: ??06/03/2019 This report was finalized on 06/03/2019 1:[address] Dejon Zayas. Narrative 06/03/2019 1:07 PM EST EXAMINATION: MRI THORACIC SPINE W WO CONTRAST- INDICATION: Spinal cord tumor; D49.7-Neoplasm of unspecified behavior of endocrine glands and other parts of nervous system. TECHNIQUE: Multiplanar MRI of the thoracic spine with and without intravenous contrast. COMPARISON: None. FINDINGS: Sagittal datasets reveal similar alignment of configuration from prior comparison with normal kyphotic curvature. No focal subluxation or listhesis. Scattered hemangiomatous without aggressive bone marrow signal findings noted. Vertebral body height is preserved without compression deformity, fracture or interval progressive development of osseous findings. Continued posterior margination of the midthoracic spine and potential tethering from postsurgical changes at this site without evidence for contour abnormality change or interval progression of abnormal enhancement specifically no soft tissue nodular enhancement. No intramedullary or intradural enhancement of abnormality identified. No paraspinal hematoma or paraspinal soft tissue abnormality of concern. Procedure Note Dejon Zayas DO - 06/03/2019 EXAMINATION: MRI THORACIC SPINE W WO CONTRAST- INDICATION: Spinal cord tumor; D49.7-Neoplasm of unspecified behavior of endocrine glands and other parts of nervous system. TECHNIQUE: Multiplanar MRI of the thoracic spine with and without intravenous contrast. COMPARISON: None. FINDINGS: Sagittal datasets reveal similar alignment of configuration from prior comparison with normal kyphotic curvature. No focal subluxation or listhesis. Scattered hemangiomatous without aggressive bone marrow signal findings noted. Vertebral body height is preserved without compression deformity, fracture or interval progressive development of osseous findings. Continued posterior margination of the midthoracic spine and potential tethering from postsurgical changes at this site without evidence for contour abnormality change or interval progression of abnormal enhancement specifically no soft tissue nodular enhancement. No intramedullary or intradural enhancement of abnormality identified. No paraspinal hematoma or paraspinal soft tissue abnormality of concern. IMPRESSION: Stable appearance of the thoracic cord with tethering and postsurgical changes in the midthoracic spine as seen on prior without evidence of recurrence as there is no abnormal soft tissue nodular enhancement at this site or elsewhere of intramedullary or intradural involvement with stable postsurgical changes noted. No advanced degenerative changes or aggressive bone marrow signal findings noted. E: 06/03/2019 This report was finalized on 06/03/2019 1:[address] Dejon Zayas. Artemio Hudson MD IM MRI ORDERABLES Final Resu lt documented in this encounter Visit Diagnoses Diagnosis Spinal cord tumor- Primary Neoplasm of unspecified nature of endocrine glands and other parts of nervous system Spinal cord tumor Neoplasm of unspecified nature of endocrine glands and other parts of nervous system documented in this encounter Care Teams Waistline Joiner Overlock Relationship Specialty Start Date End Date Afua Hurley DO [facility] [place] [address] PCP - General Family Medicine 10/14/15 documented as of this encounter
--- OUTSIDE RECORDS SUMMARY | 2024-02-24 15:59 | XMS_ITS | Clinical Summary ---
Author Organization [employer] [facility] [employer] Address [address] [place] [address] Care Team Providers Care Manager Shell Name Role Phone Unavailable Primary Care Provider [...]
--- OUTSIDE RECORDS SUMMARY | 2024-02-24 15:59 | XMS_ITS | Encounter Summary ---
[facility] Address [address] [place] [address] Care Team Providers Care Hypoid Gear Generator Name Role Phone Afua Hurley DO Primary Care Provider [phone] Reason for Referral * Diagnostic Imaging (Routine) - Closed Specialty Diagnoses / Procedures Referred By Contac t Referred To Contact Radiology Diagnoses Spinal cord tumor Procedures MRI Thoracic Spine With & Without Contrast Artemio Hudson MD [address] [place] [address] Phone: tel: fax: [facility] [address] [place] [phone] Phone: tel: Referral ID Status Reason Start Date Expiration Date Visits Re quested Visits Authorized [id number] Closed 05/01/2018 05/30/2018 1 1 Reason for Visit * Diagnostic Imaging (Routine) - Closed Specialty Diagnoses / Procedures Referred By Contac t Referred To Contact Radiology Diagnoses Spinal cord tumor Procedures MRI Thoracic Spine With & Without Contrast Artemio Hudson MD [address] [place] [address] Phone: tel: fax: [facility] [address] [place] [address] Phone: tel: Referral ID Status Reason Start Date Expiration Date Visits Re quested Visits Authorized [id number] Closed 05/01/2018 05/30/2018 1 1 Encounter Details Date Type Department Care Team (Late st Contact Info) Description 05/14/2018 10:23 AM EST - 05/14/2018 11:59 PM EST Hospital Encounter [facility] [address] [facility] [place] [address] Artemio Hudson MD [address] [place] [address] Spinal cord tumor Discharge Disposition: Home or Self Care Social History Tobacco Use Types Packs/Day Years Used Date Smoking Tobacco: Former Cigarettes 1 8 1 978 - 0065 Smokeless Tobacco: Never Alcohol Use Standard Drinks/Week [...] [facility] RHEUMATOLOGY [address] [facility] [address] [place] [address] Ivan Alvarado DO [address] [facility] [address] [place] [address] 04/24/2024 10:50 AM EST Office Visit [facility] ORTHOPEDICS & SPORTS MEDICINE [address] [facility] [address] [place] [phone] Solomon Aguilar MD [address] [facility] [address] [place] [address] documented as of this encounter Procedures Procedure Name Priority Date/Time Associated Diagnosis Comments MRI THORACIC SPINE W WO CONTRAST Routine 05/14/2018 11:46 AM EST Spinal cord tumor POCT CREATININE Routine 05/14/2018 11:18 AM EST documented in this encounter Results * [...] Chandler Solis MD. us Artemio Hudson MD IM MRI ORDERABLES Final Resu lt * POC Creatinine (05/14/2018 11:18 AM EST) Creatinine 1.20 0.60 - 1.30 mg/dL 05/15/2018 9:55 AM EST [facility] Comment:Serial Number: [id number] 4Operator: [id number] Blood 05/14/2018 11:1 8 AM EST 05/15/2018 9:54 AM EST us Artemio Hudson MD POINT OF CARE TEST ORDERABLES Final Result [facility]
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 documented in this encounter Administered Medications Inactive Administered Medications - up to 3 most recent administrations Medication Order MAR Action Action Date Dose Rate Site gadobenate dimeglumine (MULTIHANCE) injection 18 mL 18 mL, Intravenous, Once in Imaging, On Tu05/14/18 at 1146, For 1 dose, Vesicant; admin as rapid bolus; flush with 5 mL NS after admin or 20 mL for renal or aortoiliofemoral vasculature Given 05/14/2018 11:46 AM EST 18 mL documented in this encounter Care Teams Hypoid Gear Generator Relationship Specialty Start Date End Date Afua Hurley DO [address] [place] [address] PCP - General Family Medicine 10/14/15 documented as of this encounter
--- OUTSIDE RECORDS SUMMARY | 2024-02-24 15:59 | XMS_ITS | Encounter Summary ---
[facility] [address] [place] [address] Care Team Providers Care Sharepoint Analyst Name Role Phone Afua Hurley DO Primary Care Provider [phone] [phone] Reason for Referral * Diagnostic Imaging (Routine) - Closed Specialty Diagnoses / Procedures Referred By Contac t Referred To Contact Radiology Diagnoses Spinal cord tumor Procedures MRI Thoracic Spine With & Without Contrast Artemio Hudson MD [address] [place] [address] Phone: tel: fax: [facility] [address] [place] [address] Phone: tel: Referral ID Status Reason Start Date Expiration Date Visits Re quested Visits Authorized [id number] Closed 08/24/2016 09/22/2016 1 1 Reason for Visit * Diagnostic Imaging (Routine) - Closed Specialty Diagnoses / Procedures Referred By Contac t Referred To Contact Radiology Diagnoses Spinal cord tumor Procedures MRI Thoracic Spine With & Without Contrast Artemio Hudson MD [address] [place] [address] Phone: tel: fax: [facility] MRI [address] [place] [address] Phone: tel: Referral ID Status Reason Start Date Expiration Date Visits Re quested Visits Authorized [id number] Closed 08/24/2016 09/22/2016 1 1 Encounter Details Date Type Department Care Team (Late st Contact Info) Description 09/20/2016 9:45 AM EDT - 09/20/2016 11:59 PM EDT Hospital Encounter [facility] MRI [address] [place] [phone] Artemio Hudson MD [address] [place] [address] Spinal cord tumor Discharge Disposition: Home or Self Care Social History Tobacco Use Types Packs/Day Years Used Date Smoking Tobacco: Former Cigarettes 1 8 1 978 - 4435 Smokeless Tobacco: Never Alcohol Use Standard Drinks/Week [...] (4-6). 3 documented as of this encounter Plan of Treatment Upcoming Encounters Date Type Department Care Team (Late st Contact Info) Description 03/10/2024 11:30 AM EST Office Visit [facility] RHEUMATOLOGY [address] [facility] [address] [place] [address] Ivan Alvarado DO [address] [facility] [address] [place] [address] 04/24/2024 10:50 AM EST Office Visit [facility] ORTHOPEDICS & SPORTS MEDICINE [address] [facility] [address] [place] [address] Solomon Aguilar MD [address] [facility] [address] [place] [address] documented as of this encounter Procedures Procedure Name Priority Date/Time Associated Diagnosis Comments MRI THORACIC SPINE W WO CONTRAST Routine 09/20/2016 11:13 AM EDT Spinal cord tumor POCT CREATININE Routine 09/20/2016 10:32 AM EDT documented in this encounter Results * MRI Thoracic Spine With & Without Contrast (09/20/2016 11:13 AM EDT) Anatomical Region Laterality Modality Spine, T-spine N/A Magnetic Resonan ce 09/20/2016 3:52 PM EDT Impressions 09/21/2016 10:42 PM EDT 1. Postoperative changes at T5-6, focal dorsal displacement of the thoracic cord, and mild focal myelomalacia. Thoracic spine and cord appear within normal limits elsewhere. 2. Incidentally noted C5-6 and C6-7 degenerative disc disease and suspected cervical spinal stenosis. D: ??09/20/2016 E: ??09/20/2016 ?? This report was finalized on 09/21/2016 10:[address] Cyrus Jesus MD. Narrative 09/21/2016 10:42 PM EDT EXAMINATION: MRI THORACIC SPINE WITH AND WITHOUT CONTRAST-09/20/2016: INDICATION: Spinal cord tumor; D49.7-Neoplasm of unspecified behavior of endocrine glands and other parts of nervous system. ? TECHNIQUE: Sagittal T1-T2 STIR, axial T1 and T2 and sagittal post-Gadolinium contrast axial and sagittal T1-weighted images of the thoracic spine. COMPARISON: NONE. 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 No given history of current complaint. Field Counsel images show disc protrusions at C4-5 and C5-6, with mild cervical canal stenosis. Surgical defect is noted dorsal to T5-6, with somewhat tethered cord appearance of the cord at this level to the dorsal margin of the canal, and perhaps some encephalomalacia of the cord. The thoracic cord elsewhere appears normal. Thoracic vertebral body heights are well maintained. A few fat-containing vertebral hemangiomas are noted but no other vertebral lesions are seen. No compression deformity or focal subluxation is identified. Axial images show no evidence of HNP or canal stenosis. ??The cord and canal appear normal except at the operative site, where there is mild flattening of the cord, less than suspected from the sagittal images, with dorsal displacement, and mildly increased T2 signal in the dorsal margin of the cord on two images only. Cord signal elsewhere appears normal. No evidence of paraspinous mass is seen. 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 TECHNIQUE: Sagittal T1-T2 STIR, axial T1 and T2 and sagittal post-Gadolinium contrast axial and sagittal T1-weighted images of the thoracic spine. COMPARISON: NONE. 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 No given history of current complaint. Field Counsel images show disc protrusions at C4-5 and C5-6, with mild cervical canal stenosis. Surgical defect is noted dorsal to T5-6, with somewhat tethered cord appearance of the cord at this level to the dorsal margin of the canal, and perhaps some encephalomalacia of the cord. The thoracic cord elsewhere appears normal. Thoracic vertebral body heights are well maintained. A few fat-containing vertebral hemangiomas are noted but no other vertebral lesions are seen. No compression deformity or focal subluxation is identified. Axial images show no evidence of HNP or canal stenosis. The cord and canal appear normal except at the operative site, where there is mild flattening of the cord, less than suspected from the sagittal images, with dorsal displacement, and mildly increased T2 signal in the dorsal margin of the cord on two images only. Cord signal elsewhere appears normal. No evidence of paraspinous mass is seen. IMPRESSION: 1. Postoperative changes at T5-6, focal dorsal displacement of the thoracic cord, and mild focal myelomalacia. Thoracic spine and cord appear within normal limits elsewhere. 2. Incidentally noted C5-6 and C6-7 degenerative disc disease and suspected cervical spinal stenosis. E: 09/20/2016 This report was finalized on 09/21/2016 10:[address] Cyrus Jesus MD. Artemio Hudson MD IMG MRI ORDERABLES Final Resu lt * POC Creatinine (09/20/2016 10:32 AM EDT) Creatinine 1.00 0.60 - 1.30 mg/dL 09/24/2016 11:15 PM EDT [facility] Comment:Serial Number: [id number] Echocardiologist: [id number] Blood 09/20/2016 10:3 2 AM EDT 09/24/2016 11:15 PM EDT Artemio Hudson MD POINT OF CARE TEST ORDERABLES Final Result [facility]
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 documented in this encounter Administered Medications Inactive Administered Medications - up to 3 most recent administrations Medication Order MAR Action Action Date Dose Rate Site gadobenate dimeglumine (MULTIHANCE) injection 19 mL 19 mL, Intravenous, Once in Imaging, On Sun09/20/16 at 1145, For 1 dose, Vesicant; admin as rapid bolus; flush with 5 mL NS after admin or 20 mL for renal or aortoiliofemoral vasculature Given 09/20/2016 11:45 AM EDT 19 mL documented in this encounter Care Teams Sharepoint Analyst Relationship Specialty Start Date End Date Afua Hurley DO [facility] [place] [address] PCP - General Family Medicine 10/14/15 documented as of this encounter
--- OUTSIDE RECORDS SUMMARY | 2024-02-24 15:59 | XMS_ITS | Encounter Summary ---
[facility] Address [address] [place] [address] Care Team Providers Care Hydro Technician Name Role Phone Afua Hurley DO Primary Care Provider [phone] Reason for Referral * Physical Therapy (Routine) - Closed Specialty Diagnoses / Procedures Referred By Contac t Referred To Contact Physical Therapy Diagnoses Spinal cord tumor Bg Aj PA-C Phone: tel: fax: LOCATION NOT FOUND IN SYSTEM [facility] [place] [address] Phone: tel: Referral ID Status Reason Start Date Expiration Date V isits Requested Visits Authorized [id number] Closed Specialty Services Required 12/22/2015 06/19/2016 20 20 Scheduling Instructions 3x/wk for 4 weeks Reason for Visit * Reason Comments Post-op 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c Encounter Details Date Type Department Care Team (Late st Contact Info) Description 12/22/2015 12:30 PM EDT Office Visit [facility] NEUROSURGERY [address] [place] [address] Bg Aj PA-C [address] [place] [address] Spinal cord tumor (Primary Dx) Social History [...] - - Temperature 36.3 ??C (97.4 ??F) 12/22/2015 12:50 PM E DT Respiratory Rate - - Oxygen Saturation - - Inhaled Oxygen Concentration - - Weight 93.4 kg (206 lb) 12/22/2015 12:50 PM EDT Height 162.6 cm (5' 4 ) 12/22/2015 12:50 PM EDT Body Mass Index 35.36 12/22/2015 12:50 PM EDT documented in this encounter Progress Notes * Bg Aj PA-C - 12/22/2015 12:51 PM EDT Patient: Sue Cardona : 1960 Primary Care Provider: Afua Hurley DO Requesting Provider: As above History Chief Complaint: Ependymoma History of Present Illness: Ms. Cardona is seen in follow-up. She is 1 year history of back pain. Studies ultimately revealed a fairly well circumscribed intramedullary tumor at the T5-6 level. On 12/02/2015, she underwent T5-T6 laminectomies for resection of intramedullary spinal cord tumor. Pathology has been consistent with an ependymoma. She is using a walker for assist with ambulation. She continues to feel as though she has an elastic and across her upper waistline. She has heaviness in her legs. She denies any bowel or bladder dysfunction. Her feet are cold bilaterally. At times she has noticed some leg swelling. She is no longer on steroid. At her last visit upon removing several sutures there was clear expression of CSF. Nylon sutures were replaced. She's had no further wound drainage. She denies any headaches. She denies swelling about her incision. Review of Systems Constitutional: Positive for fatigue. Cardiovascular: Positive for leg swelling. Musculoskeletal: Positive for back pain. Neurological: Positive for weakness and numbness. Facial asymmetry: both feet. All other systems reviewed and are negative. Physical Exam: Visit Vitals ??? Temp 97.4 ??F (36.3 ??C) (Temporal Artery ) ??? Ht 64 (162.6 cm) ??? Wt 206 lb (93.4 kg) ??? BMI 35.36 kg/m2 She is alert and oriented ??3. She is in no acute distress. She walks with a steady gait with the use of a rolling walker. She is able to transfer positions quite readily. Examination of her incisionroom reveals nylon sutures in place. There is mild erythema associated with the sutures himself. There is no swelling about the incision. There is no warmth, erythema, or induration. Medical Decision Making Treatment Options: I discussed the above with Dr. Hudson. At this time he has recommended that Ms. Cardona sutures remain in place for another week. Therefore she will follow-up in approximately 1 week time for suture removal and wound check. In the interim I have referred her for formal physical therapy. I've asked that they focus largely on lower extremity and avoid any repetitive arm movements. She is advised to call in the interim with any further questions or concerns. Diagnosis Plan 1. Spinal cord tumor Ambulatory referral to Physical Therapy Evaluate and treat documented in this encounter Plan of Treatment Upcoming Encounters Date Type Department Care Team (Late st Contact Info) Description 03/10/2024 11:30 AM EST Office Visit [facility] RHEUMATOLOGY [address] [facility] [address] [place] [address] Ivan Alvarado DO 3000 [facility] [address] [place] [address] 04/24/2024 10:50 AM EST Office Visit [facility]THOPEDICS & SPORTS MEDICINE [address] [facility] [address] [place] [address] Solomon Aguilar MD [address] [facility] [address] [place] [address] documented as of this encounter Visit Diagnoses Diagnosis Spinal cord tumor- Primary 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
--- OUTSIDE RECORDS SUMMARY | 2024-02-24 15:59 | XMS_ITS | Encounter Summary ---
[facility] [address] [place] [address] Care Team Providers Care Greige Mender Name Role Phone Afua Hurley Primary Care Provider [phone] Reason for Visit * Reason Comments Post-op MRI Encounter Details Date Type Department Care Team (Late st Contact Info) Description 02/09/2016 1:15 PM EDT Office Visit [facility] NEUROSURGERY [address] [facility] [address] [place] [phone] Artemio Hudson MD [address] [facility] [address] [place] [address] Spinal cord tumor (Primary Dx); Ependymoma Social History Tobacco Use Types Packs/Day Years [...] Pressure - - Pulse - - Temperature 36.9 ??C (98.4 ??F) 02/09/2016 1:08 PM ED T Respiratory Rate - - Oxygen Saturation - - Inhaled Oxygen Concentration - - Weight 97 kg (213 lb 12.8 oz) 02/09/2016 1:08 PM EDT Height 162.6 cm (5' 4 ) 02/09/2016 1:08 PM EDT Body Mass Index 36.7 02/09/2016 1:08 PM EDT documented in this encounter Progress Notes * Artemio Hudson MD - 02/09/2016 1:08 PM EDT Patient: Sue Cardona : 1960 Primary Care Provider: Afua Hurley DO Requesting Provider: As above History Chief Complaint: Mid back pain. History of Present Illness: Ms. Macedo is a 55-year-old woman who presented with increasing mid back [...] had no further difficulties in that regard. He dysesthetic sensory alteration present from the mid abdomen down into her legs as receded is now present below the knees. She is ambulating fairly independently. She modestly uses a cane. She reports no bowel or bladder dysfunction. Review of Systems Constitutional: Positive for activity change. Negative for appetite change, chills, diaphoresis, fatigue, fever and [...] in the electronic medical record. Physical Exam: Visit Vitals ??? Temp 98.4 ??F (36.9 ??C) (Temporal Artery ) ??? Ht 64 (162.6 cm) ??? Wt 213 lb 12.8 oz (97 kg) ??? BMI 36.7 kg/m2 The patient ambulated independently. Her wound is healing nicely. Medical Decision Making Data Review: Follow-up MRI reveals postsurgical changes at the operative site. There is a modest SF collection present in the deep tissues. There is a trace bit of enhancement within the resection bed. Diagnosis: Thoracic intramedullary ependymoma status post resection. Treatment Options: My plan is to follow her with serial imaging studies. Were she to develop recurrence of her tumor then adjuvant radiation would be considered. She will follow-up in our clinic in approximate 3 months. 3 months thereafter I plan on repeating her thoracic MRI with and without gadolinium. Diagnosis Plan 1. Spinal cord tumor 2. Ependymoma I, Dr. Hudson, personally performed the services described in the documentation, as scribed in my presence, and it is both accurate and complete. documented in this encounter Plan of Treatment Upcoming Encounters Date Type Department Care Team (Late st Contact Info) Description 03/10/2024 11:30 AM EST Office Visit 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
--- OUTSIDE RECORDS SUMMARY | 2024-02-24 15:59 | XMS_ITS | Encounter Summary ---
[facility] [address] [place] [id number] Care Team Providers Care Classification Clerk Name Role Phone Afua Hurley Primary Care Provider [phone] Encounter Details Date Type Department Care Team (Late st Contact Info) Description 12/14/2015 Refill [facility] [address] [facility] [address] [place] [id number] Bg Aj PA-C [address] [place] [address] Social History Tobacco Use Types Packs/Day Years [...] 03/10/2024 11:30 AM EST Office Visit [facility] RHEUMATOLOGY [address] [facility] [address] [place] [phone] Ivan Alvarado DO [address] [facility] [address] [place] [address] 04/24/2024 10:50 AM EST Office Visit [facility] [address] [facility] [address] [place] [address] Solomon Aguilar MD [address] [facility] [address] [place], [place] [id number] documented as of this encounter Visit Diagnoses Not on filedocumented in this encounter Care Teams Classification Clerk Relationship Specialty Start Date End Date Afua Hurley DO [address] [place] [address] PCP - General Family Medicine 10/14/15 documented as of this encounter
--- OUTSIDE RECORDS SUMMARY | 2024-02-24 15:59 | XMS_ITS | Encounter Summary ---
Author Organization [employer] Address [address] [place] [id number] Care Team Providers Care System Manager Name Role Phone Unavailable Primary Care Provider Unavailabl e Encounter Details Date Type Department Care Team (Late st Contact Info) Description 03/11/2020 Transcribed Document [facility] [place] Family Medicine [address] [place] [address] ProviderUlises MD [facility] [place] [address] Social History Tobacco Use Types Packs/Day Years Used Date Smoking Tobacco: Never Assessed Comments Unknown Sex and Gender Information Value Date Recorded Sex Assigned at Female 10/06/2021 11:59 AM CDT Legal Sex Female 7:14 PM CDT Gender Identity Female 10/06/2021 11:59 AM CDT Sexual Orientation Not on file documented as of this encounter Miscellaneous Notes * Cerner Conversion Note - Ulises ProviderMD - 03/11/2020 9:26 AM 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 Showering/Bathing: May shower, No tub bathing, soaking or swimming Notify Provider of: signs of infection, you injure your foot or get your dressing wet. Wound/Incision Care after Discharge: Keep operative site/wound site clean and dry, DO NOT change dressing; may reinforce it as needed Medical Equipment for Home Use: Follow-Up Appointments Follow Up with VICTOR M BANKS When Within 1 week Where: [address] [place], [place] [id number] [employer] (1) Medications What How Much When Instructions Next Dose albuterol-ipratropium (albuterol-ipratropium 103 mcg-18 mcg/ inh inhalation aerosol) Inhalation As needed for Shortness of Breath celecoxib (CeleBREX 200 mg oral capsule) 1 Capsule(s) Oral Two Times A Day DULoxetine (Cymbalta) 60 Milligram(s) Oral Two Times A Day fexofenadine (fexofenadine 180 mg oral tablet) 1 Tablet(s) Oral Every Day fluticasone nasal (Flonase) 1 [place](s) Nostrils Both At Bedtime gabapentin (gabapentin 600 mg oral tablet) 2 Tablet(s) Oral Three Times A Day losartan (losartan 25 mg oral tablet) 1 Tablet(s) Oral Every Day montelukast (Singulair 10 mg oral tablet) 1 Tablet(s) Oral Every Evening pantoprazole (pantoprazole 40 mg oral delayed release tablet) 1 Tablet(s) Oral Two Times A Day rOPINIRole (rOPINIRole 1 mg oral tablet) 1 Tablet(s) Oral Three Times A Day traMADol 50 Milligram(s) Oral Two Times A Day Take your medications faithfully. Do NOT skip medication. Do NOT stop taking medications without the direction of a physician. Carry a list of your medications with you at all times, and take this medication list with you to your first follow up visit. Report any side effects. Avoid herbal remedies unless discussed with your physician. As part of your treatment plan, your physician may have prescribed a limited course of a controlled substance. This medication may be given to help people with moderate or severe pain or for other medical conditions, but there are risks involved with treatment. Common side effects may include nausea, constipation, drowsiness, sweating, itching, dry mouth, and rash. More serious side effects may include cognitive and motor impairment, like problems with thinking, concentrating, alertness, and movement (e.g. slowed reflexes), and driving and operating heavy machinery can be dangerous. It is important for you to talk to your physician if you have these side effects or questions. These controlled substances can produce physical dependence and be habit-forming if taken for an extended period of time, which means that the body has gotten used to them and may experience withdrawal symptoms if they are abruptly stopped. Withdrawal symptoms can include runny nose, sweating, goose bumps, diarrhea, abdominal cramping, rapid heartbeat, difficulty sleeping, and nervousness. Please dispose of unused and medications per pharmacy guidance. Education Materials Outpatient Surgery, Adult, Care After These instructions [...] and water are not available, use hand pecan sheller. ? Change your dressing as told by [...] or a bad smell. Medicines ??? Take pmln-sou-zihqpkd and prescription medicines only as told by [...] 07/16/2016 Document Revised: 06/24/2018 Document Reviewed: 07/16/2016 [employer] Patient Education ?? 2020 [employer]. promethazine (oral) (pro METH a zeen) Phenergan What is the most important information I should know about promethazine? Promethazine should not be given to a child younger than 2 years old. Promethazine can cause severe breathing problems or in very young children. What is promethazine? Promethazine is in a group of drugs called phenothiazines (WDCE-lq-DCXQ-a-zeens). It works by changing the actions of chemicals in your brain. Promethazine also acts as an antihistamine. It blocks the effects of the naturally occurring chemical histamine in your body. Promethazine is used to treat allergy symptoms such as itching, runny nose, sneezing, itchy or watery eyes, hives, and itchy skin rashes. Promethazine also prevents motion sickness, and treats nausea and vomiting or pain after surgery. It is also used as a sedative or sleep aid. Promethazine is not for use in treating symptoms of asthma, pneumonia, or other lower respiratory tract infections. Promethazine may also be used for purposes not listed in this medication guide. What should I discuss with my healthcare provider before taking promethazine? Promethazine should not be given to a child younger than 2 years old. Promethazine can cause severe breathing problems or in very young children. Carefully follow your doctor's instructions when giving this medicine to a child of any age. You should not take this medicine if you are allergic to promethazine or to similar medicines such as chlorpromazine, fluphenazine, mesoridazine, perphenazine, prochlorperazine, thioridazine, or trifluperazine. To make sure promethazine is safe for you, tell your doctor if you have: ?? asthma, chronic obstructive pulmonary disease (COPD), sleep apnea, or other breathing disorder; ?? a sulfite allergy; ?? a history of seizures; ?? a weak immune system (bone marrow depression); ?? glaucoma; ?? enlarged prostate or problems with urination; ?? stomach ulcer or obstruction; ?? heart disease or high blood pressure; ?? liver disease; ?? adrenal gland tumor (pheochromocytoma); ?? low levels of calcium in your blood (hypocalcemia); or ?? if you have ever had a serious side effect while using promethazine or any other phenothiazine. It is not known whether promethazine will harm an unborn baby. Tell your doctor if you are or plan to become while using this medicine. It is not known whether promethazine passes into breast milk or if it could harm a nursing baby. You should not breast-feed while using this medicine. How should I take promethazine? Follow all directions on your prescription label. Your doctor may occasionally change your dose to make sure you get the best results. Do not take this medicine in larger or smaller amounts or for longer than recommended. Promethazine is often taken at bedtime or before meals. For motion sickness, promethazine is usually started within 1 hour before traveling. When used for surgery, promethazine is usually taken the night before the surgery. How often you take this medicine and the timing of your dose will depend on the condition being treated. Measure liquid medicine with the dosing syringe provided, or with a special dose-measuring spoon or medicine cup. If you do not have a dose-measuring device, ask your pharmacist for one. If a child is using this medicine, tell your doctor if the child has any changes in weight. Promethazine doses are based on weight in children, and any changes may affect your child's dose. Call your doctor if your symptoms do not improve, or if they get worse while using promethazine. This medicine can cause unusual results with certain medical tests. Tell any doctor who treats you that you are using promethazine. Store at room temperature away from moisture, heat, and light. What happens if I miss a dose? Take the missed dose as soon as you remember. Skip the missed dose if it is almost time for your next scheduled dose. Do not take extra medicine to make up the missed dose. What happens if I overdose? Seek emergency medical attention or call the Poison Help line at . Overdose symptoms may include overactive reflexes, loss of coordination, severe drowsiness or weakness, fainting, dilated pupils, weak or shallow breathing, or seizure (convulsions). What should I avoid while taking promethazine? This medicine may impair your thinking or reactions. Be careful if you drive or do anything that requires you to be alert. Avoid getting up too fast from a sitting or lying position, or you may feel dizzy. Get up slowly and steady yourself to prevent a fall. Drinking alcohol can increase certain side effects of promethazine. Avoid exposure to sunlight or tanning beds. Promethazine can make you sunburn more easily. Wear protective clothing and use sunscreen (SPF 30 or higher) when you are outdoors. What are the possible side effects of promethazine? Get emergency medical help if you have signs of an allergic reaction: hives; difficult breathing; swelling of your face, lips, tongue, or throat. Stop using promethazine and call your doctor at once if you have: ?? severe drowsiness, weak or shallow breathing; ?? a light-headed feeling, like you might pass out; ?? confusion, agitation, hallucinations, nightmares; ?? seizure (convulsions); ?? fast or slow heartbeats; ?? jaundice (yellowing of the skin or eyes); ?? uncontrolled muscle movements in your face (chewing, lip smacking, frowning, tongue movement, blinking or eye movement); ?? easy bruising or bleeding (nosebleeds, bleeding gums); ?? sudden weakness or ill feeling, fever, chills, sore throat, mouth sores, red or swollen gums, trouble swallowing; or ?? severe nervous system reaction--very stiff (rigid) muscles, high fever, sweating, confusion, fast or uneven heartbeats, tremors, feeling like you might pass out. Side effects such as confusion and severe drowsiness may be more likely in older adults. Common side effects may include: ?? drowsiness, dizziness; ?? ringing in your ears; ?? double vision; ?? feeling nervous; ?? dry mouth; or ?? tired feeling, sleep problems (insomnia). This is not a complete list of side effects and others may occur. Call your doctor for medical advice about side effects. You may report side effects to FDA at 7-643-BDQ-4471. What other drugs will affect promethazine? Using this medicine with other drugs that make you sleepy or slow your breathing can cause dangerous or life-threatening side effects. Ask your doctor before taking promethazine with a sleeping pill, narcotic pain medicine, muscle relaxer, or medicine for anxiety, depression, or seizures. Other drugs may interact with promethazine, including prescription and icxg-hbw-ykybmos medicines, vitamins, and herbal products. Tell each of your health care providers about all medicines you use now and any medicine you start or stop using. Where can I get more information? Your pharmacist can provide more information about promethazine. Remember, keep this and all other medicines out of the reach of children, never share your medicines with others, and use this medication only for the indication prescribed. Every effort has been made to ensure that the information provided by [employer] ('[employer]') is accurate, up-to-date, and complete, but no guarantee is made to that effect. Drug information contained herein may be time sensitive. [employer] information has been compiled for use by healthcare practitioners and consumers in the [place] and therefore [employer] does not warrant that uses outside of the [place] are appropriate, unless specifically indicated otherwise. [employer] drug information does not endorse drugs, diagnose patients or recommend therapy. [employer] drug information is an informational resource designed to assist licensed healthcare practitioners in caring for their patients and/or to serve consumers viewing this service as a supplement to, and not a substitute for, the expertise, skill, knowledge and judgment of healthcare practitioners. The absence of a warning for a given drug or drug combination in no way should be construed to indicate that the drug or drug combination is safe, effective or appropriate for any given patient. [employer] does not assume any responsibility for any aspect of healthcare administered with the aid of information [employer] provides. The information contained herein is not intended to cover all possible uses, directions, precautions, warnings, drug interactions, allergic reactions, or adverse effects. If you have questions about the drugs you are taking, check with your doctor, nurse or pharmacist. Copyright 8485-6639 [employer]. Version: 6.02. Revision Date: 01/21/2015. acetaminophen and hydrocodone (a SEET a MIN oh fen and allan droe KOE done) Hycet, Lorcet, Elsah, Verdrocet, Vicodin, Xodol, Zamicet What is the most important information I should know about acetaminophen and hydrocodone? MISUSE OF OPIOID MEDICINE CAN CAUSE ADDICTION, OVERDOSE, OR . Keep the medication in a place where others cannot get to it. Taking opioid medicine during may cause life-threatening withdrawal symptoms in the . Fatal side effects can occur if you use opioid medicine with alcohol, or with other drugs that cause drowsiness or slow your breathing. Stop taking this medicine and call your doctor right away if you have skin redness or a rash that spreads and causes blistering and peeling. What is acetaminophen and hydrocodone? Acetaminophen and hydrocodone is a combination medicine used to relieve moderate to severe pain. Acetaminophen and hydrocodone may also be used for purposes not listed in this medication guide. What should I discuss with my healthcare provider before taking acetaminophen and hydrocodone? You should not use this medicine if you are allergic to acetaminophen or hydrocodone, or if you have: ?? severe asthma or breathing problems; or ?? a blockage in your stomach or intestines. Tell your doctor if you have ever had: ?? breathing problems, sleep apnea; ?? liver disease; ?? a drug or alcohol addiction; ?? kidney disease; ?? a head injury or seizures; ?? urination problems; or ?? problems with your thyroid, pancreas, or gallbladder. If you use opioid medicine while you are , your baby could become dependent on the drug. This can cause life-threatening withdrawal symptoms in the baby after it is born. Babies born dependent on opioids may need medical treatment for several weeks. Do not breastfeed. This medicine can pass into breast milk and cause drowsiness, breathing problems, or in a nursing baby. How should I take acetaminophen and hydrocodone? Follow all directions on your prescription label. Never take this medicine in larger amounts, or for longer than prescribed. An overdose can damage your liver or cause . Tell your doctor if you feel an increased urge to use more of this medicine. Never share this medicine with another person, especially someone with a history of drug abuse or addiction. MISUSE CAN CAUSE ADDICTION, OVERDOSE, OR . Keep the medicine in a place where others cannot get to it. Selling or giving away acetaminophen and hydrocodone is against the law. Measure liquid medicine carefully. Use the dosing syringe provided, or use a medicine dose-measuring device (not a kitchen spoon). If you need surgery or medical tests, tell the doctor ahead of time that you are using this medicine. You should not stop using this medicine suddenly. Follow your doctor's instructions about tapering your dose. Store at room temperature away from moisture and heat. Keep track of your medicine. You should be aware if anyone is using it improperly or without a prescription. Do not keep leftover opioid medication. Just one dose can cause in someone using this medicine accidentally or improperly. Ask your pharmacist where to locate a drug take-back disposal program. If there is no take-back program, flush the unused medicine down the toilet. What happens if I miss a dose? Since this medicine is used for pain, you are not likely to miss a dose. Skip any missed dose if it is almost time for your next dose. Do not use two doses at one time. What happens if I overdose? Seek emergency medical attention or call the Poison Help line at . An overdose of acetaminophen and hydrocodone can be fatal. The first signs of an acetaminophen overdose include loss of appetite, nausea, vomiting, stomach pain, sweating, and confusion or weakness. Later symptoms may include pain in your upper stomach, dark urine, and yellowing of your skin or the whites of your eyes. Overdose can also cause severe muscle weakness, pinpoint pupils, very slow breathing, extreme drowsiness, or coma. What should I avoid while taking acetaminophen and hydrocodone? Avoid driving or operating machinery until you know how this medicine will affect you. Dizziness or drowsiness can cause falls, accidents, or severe injuries. Do not drink alcohol. Dangerous side effects or could occur. Ask a doctor or pharmacist before using any other medicine that may contain acetaminophen (sometimes abbreviated as APAP). Taking certain medications together can lead to a fatal overdose. What are the possible side effects of acetaminophen and hydrocodone? Get emergency medical help if you have signs of an allergic reaction: hives; difficulty breathing; swelling of your face, lips, tongue, or throat. Opioid medicine can slow or stop your breathing, and may occur. A person caring for you should seek emergency medical attention if you have slow breathing with long pauses, blue colored lips, or if you are hard to wake up. In rare cases, acetaminophen may cause a severe skin reaction that can be fatal. This could occur even if you have taken acetaminophen in the past and had no reaction. Stop taking this medicine and call your doctor right away if you have skin redness or a rash that spreads and causes blistering and peeling. Call your doctor at once if you have: ?? noisy breathing, sighing, shallow breathing, breathing that stops during sleep; ?? a light-headed feeling, like you might pass out; ?? liver problems--nausea, upper stomach pain, tiredness, loss of appetite, dark urine, radha-colored stools, jaundice (yellowing of the skin or eyes); or ?? low cortisol levels-- nausea, vomiting, loss of appetite, dizziness, worsening tiredness or weakness. Seek medical attention right away if you have symptoms of serotonin syndrome, such as: agitation, hallucinations, fever, sweating, shivering, fast heart rate, muscle stiffness, twitching, loss of coordination, nausea, vomiting, or diarrhea. Serious side effects may be more likely in older adults and those who are overweight, malnourished, or debilitated. Long-term use of opioid medication may affect fertility (ability to have children) in men or women. It is not known whether opioid effects on fertility are permanent. Common side effects include: ?? dizziness, drowsiness, feeling tired; ?? nausea, vomiting, stomach pain; ?? constipation; or ?? headache. This is not a complete list of side effects and others may occur. Call your doctor for medical advice about side effects. You may report side effects to FDA at 1-480-RXT-4650. What other drugs will affect acetaminophen and hydrocodone? You may have breathing problems or withdrawal symptoms if you start or stop taking certain other medicines. Tell your doctor if you also use an antibiotic, antifungal medication, heart or blood pressure medication, seizure medication, or medicine to treat HIV or hepatitis C. Opioid medication can interact with many other drugs and cause dangerous side effects or . Be sure your doctor knows if you also use: ?? cold or allergy medicines, bronchodilator asthma/COPD medication, or a diuretic ('water pill'); ?? medicines for motion sickness, irritable bowel syndrome, or overactive bladder; ?? other narcotic medications--opioid pain medicine or prescription cough medicine; ?? a sedative like Valium--diazepam, alprazolam, lorazepam, Xanax, Klonopin, Versed, and others; ?? drugs that make you sleepy or slow your breathing--a sleeping pill, muscle relaxer, medicine to treat mood disorders or mental illness; ?? drugs that affect serotonin levels in your body--a stimulant, or medicine for depression, Parkinson's disease, migraine headaches, serious infections, or nausea and vomiting. This list is not complete. Other drugs may affect acetaminophen and hydrocodone, including prescription and utox-yfm-pondctq medicines, vitamins, and herbal products. Not all possible interactions are listed here. Where can I get more information? Your doctor or pharmacist can provide more information about acetaminophen and hydrocodone. Remember, keep this and all other medicines out of the reach of children, never share your medicines with others, and use this medication only for the indication prescribed. Every effort has been made to ensure that the information provided by [employer] ('[employer]') is accurate, up-to-date, and complete, but no guarantee is made to that effect. Drug information contained herein may be time sensitive. [employer] information has been compiled for use by healthcare practitioners and consumers in the [place] and therefore [employer] does not warrant that uses outside of the [place] are appropriate, unless specifically indicated otherwise. [employer] drug information does not endorse drugs, diagnose patients or recommend therapy. [employer] drug information is an informational resource designed to assist licensed healthcare practitioners in caring for their patients and/or to serve consumers viewing this service as a supplement to, and not a substitute for, the expertise, skill, knowledge and judgment of healthcare practitioners. The absence of a warning for a given drug or drug combination in no way should be construed to indicate that the drug or drug combination is safe, effective or appropriate for any given patient. [employer] does not assume any responsibility for any aspect of healthcare administered with the aid of information [employer] provides. The information contained herein is not intended to cover all possible uses, directions, precautions, warnings, drug interactions, allergic reactions, or adverse effects. If you have questions about the drugs you are taking, check with your doctor, nurse or pharmacist. Copyright 4245-9864 [employer]. Version: 16.. Revision Date: 04/30/2019. Emergency Awareness and Preventative Care STROKE is an EMERGENCY Every Minute Counts Act FAST and Check for these signs: FACE Does the face look uneven? ARM Does one arm drift down? SPEECH Does their speech sound strange? TIME Call at any sign of stroke Stroke Risk Factors Atrial Fibrillation (irregular heartbeat) Diabetes Family history of stroke Heart Disease Heavy alcohol use High Blood Pressure High Cholesterol Physical inactivity and obesity Smoking Cigarette Smoking The facts are clear, cigarette smoking will shorten your life. Smoking can cause many illnesses along the way. As a healthcare provider, we recommend that you stop smoking. Assistance with quitting is available by contacting 4-099-RGLQ-NOW. This is a free resource providing counseling, support, and referral. Or you may contact your personal physician. National Suicide Prevention Lifeline: The National Suicide Prevention Lifeline is a national network of local crisis centers that provides free and confidential emotional support to people in suicidal crisis or emotional distress 24 hours a day, 7 days a week. Don't Wait! Stop a Heart Attack Before it Starts What is a heart attack? A heart attack is damage or to a part of the heart from severely decreased or lack of blood flow to the heart. Over time, arteries can become narrow from the buildup of fat and cholesterol, which is called plaque. The plaque can rupture causing a blood clot to form. When the blood clot forms, the artery can become severely narrowed or completely blocked, causing a heart attack. Heart attack is the leading cause of in the [place]. 85% of muscle damage occurs within the first 2 hours. Delay in the recognition of heart attack symptoms increases the chances of . Know the early symptoms of a heart attack: Nausea Feeling of fullness in chest Jaw Pain Pain that travels down one or both arms Fatigue/being tired Anxiety Back Pain Chest pressure, squeezing, or discomfort Shortness of breath Sweating, or a cold sweat Feeling of impending doom There are unusual signs of a heart attack, too! Women, the elderly, and diabetics may present with atypical symptoms: Fainting/dizziness Weakness Confusion Risk Factors for a Heart Attack Some heart disease risk factors, such as age and family history, cannot be changed. Others, like smoking and lack of exercise, can be changed. Smoking High Cholesterol High Blood Pressure Family History Obesity Age Gender (Males are at higher risk) Lack of Exercise Diabetes Diet Stress Excessive Alcohol Intake If you or someone you know is experiencing the signs and symptoms of a heart attack, DON???T DELAY. Call immediately and seek help. If someone collapses, perform CPR! Do not attempt to drive if you are having symptoms of heart attack. Hands-Only CPR Why Hands-Only CPR? Hands-Only CPR has been shown to be as effective as conventional CPR for cardiac arrests that occur outside of a hospital. Survival depends on immediately receiving CPR from someone nearby. How do you perform Hands-Only CPR? There are two easy steps: Call if you see a teen or adult collapse Push hard and fast in the center of the chest at a beat of 100 beats per minute. Save a life! 4 WAYS TO GET AHEAD OF SEPSIS SEPSIS is a MEDICAL EMERGENCY. Time matters! Infections put you and your family at risk for a life-threatening condition called sepsis. Sepsis is the body's extreme response to an infection. It is life-threatening, and without timely treatment, sepsis can rapidly lead to tissue damage, organ failure, and . Sepsis happens when an infection you already have-in your skin, lungs, urinary tract or somewhere else-triggers a chain reaction throughout your body. 1 PREVENT INFECTIONS Take good care of chronic conditions. Talk to your doctor about getting the recommended vaccines. 2 PRACTICE GOOD HYGIENE Wash your hands frequently. Keep cuts or open sores clean and covered until they are healed. 3 KNOW THE SYMPTOMS Confusion or disorientation Shortness of breath High heart rate Fever, shivering, or feeling very cold Extreme pain or discomfort Clammy or sweaty skin 4 ACT FAST Get medical care IMMEDIATELY if you suspect sepsis or if you have an infection that is not getting better or is getting worse. To learn more about sepsis and how to prevent infections, visit www.cdc.gov/sepsis. Test Results Laboratory or Other Results This Visit (last charted value for your 03/11/2020 visit) Microbiology 03/09/2020 11:30 AM Novel Coronavirus 2019: Negative Patient Name:GABRIEL CARDONA I have received this information and was given the opportunity to ask questions. Patient/Blade Balancer Name: Patient/Blade Balancer Signature: Relationship to Patient: Clinician/Hospital Blade Balancer Signature: Date: documented in this encounter Plan of Treatment Not on file documented as of this encounter Visit Diagnoses Not on filedocumented in this encounter
--- OUTSIDE RECORDS SUMMARY | 2024-02-24 15:59 | XMS_ITS | Encounter Summary ---
[facility] Address [address] [place] [id number] Care Team Providers Care Retail Coverage Merchandiser Name Role Phone Afua Hurley DO Primary Care Provider [phone] Reason for Referral * Diagnostic Imaging (Routine) - Closed Specialty Diagnoses / Procedures Referred By Contac t Referred To Contact Radiology Diagnoses Spinal cord tumor Procedures MRI Thoracic Spine With & Without Contrast Artemio Hudson MD [address] [place] [address] Phone: tel: fax: [facility] MRI [address] [place] [address] Phone: tel: Referral ID Status Reason Start Date Expiration Date Visits Re quested Visits Authorized [id number] Closed 08/24/2016 09/22/2016 1 1 Encounter Details Date Type Department Care Team (Late st Contact Info) Description 05/10/2016 1:15 PM EST Office Visit [facility] NEUROS[facility]ERY [address] [place] [id number] Artemio Hudson MD [address] [place] [address] Spinal cord tumor (Primary Dx); Ependymoma Social [...] Pressure - - Pulse - - Temperature 37.1 ??C (98.8 ??F) 05/10/2016 1:04 PM ES T Respiratory Rate - - Oxygen Saturation - - Inhaled Oxygen Concentration - - Weight 98 kg (216 lb) 05/10/2016 1:04 PM EST Height 162.6 cm (5' 4 ) 05/10/2016 1:04 PM EST Body Mass Index 37.08 05/10/2016 1:04 PM EST documented in this encounter Progress Notes * Artemio Hudson MD - 05/10/2016 1:15 PM EST Patient: Sue Cardona : 1960 [...] had no further difficulties in that regard. She has some modest incisional pain. She still feels a bit unsteady on her feet but has been walking a fair amount. She complains of a bandlike feeling of sensory alteration around both knees. She reports no bowel or bladder dysfunction. Review of Systems Constitutional: Negative for activity [...] record. Physical Exam: Visit Vitals ??? Temp 98.8 ??F (37.1 ??C) ??? Ht 64 (162.6 cm) ??? Wt 216 lb (98 kg) ??? BMI 37.08 kg/m2 MUSCULOSKELETAL: Straight leg raising is negative. Juan R's Sign is negative. ROM in back normal. Tenderness in the back to palpation is not observed. NEUROLOGICAL: Strength is intact in the lower extremities to direct testing. Muscle tone is normal throughout. Station and gait are normal. Sensation is somewhat altered from the mid thigh down on each side. Deep tendon reflexes are 1+ and symmetrical. Coordination is intact. 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 Treatment Options: The patient is to follow-up in 4 months with a new MRI of the thoracic spine with and without gadolinium. Serial imaging will be pursued. Were her tumor to recur then radiotherapy would be considered. Diagnosis Plan 1. Spinal cord tumor MRI Thoracic Spine With & Without Contrast 2. Ependymoma I, Dr. Hudson, personally performed the services described in the documentation, as scribed in my presence, and it is both accurate and complete. Scribed for Artemio Hudson MD by Jack Shell CMA on 05/10/2016 at 1:36 PM documented in this encounter Plan of Treatment Upcoming Encounters Date Type Department Care Team (Late st Contact Info) Description 03/10/2024 11:30 AM EST Office Visit [facility] RHE[facility]ATOLOGY [address] [facility] [address] [place] [address] Ivan Alvarado DO [address] [facility] [address] [place] [address] 04/24/2024 10:50 AM EST Office Visit [facility] MEDICINE [address] [facility] [address] [place] [address] Solomon Aguilar MD [address] [facility] [address] [place] [address] documented as of this encounter Results * [...] followup. No given history of current complaint. Vocational Examiner images show disc protrusions at C4-5 and [...] followup. No given history of current complaint. Vocational Examiner images show disc protrusions at C4-5 and [...] 10:[address] Cyrus Jesus MD. 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
--- OUTSIDE RECORDS SUMMARY | 2024-02-24 15:59 | XMS_ITS | Encounter Summary ---
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] Procedures 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 Referral ID Status Reason Start Date Expiration Date Visits Re quested Visits Authorized [id number] 1 1 Encounter Details Date Type Department Care Team (Late st Contact Info) Description 12/02/2015 7:06 AM EDT Anesthesia Event [facility] [address] [place] [address] Albin Melendez MD [address] [place] [address] Diann Maciel CRNA [address] [place] [address] Anesthesia Record Procedure Summary Procedure Name Responsible Anesthesiologist Anesthesia Start Time Anesthesia Stop Time 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 (Spine Lumbar) Albin Melendez MD 12/02/15 0706 12/02/15 1034 Events Date Time Event Comment 12/02/2015 0644 0706 AN Equip Check 0706 An Start 0706 An Start Data 0711 An Induction The patient was reevaluated immediately before moderate or deep sedation use and before anesthesia induction. 0713 An Intubation 0740 Quick Note Surgical incisi on SEP and MEP neuromonitoring 0854 Quick Note Art line dampen ed 0858 An Surgeon on Cuff 0958 Quick Note End of neuromon itoring 1025 An Extubation TOF 4/4 ST>5 s ec. Spontaneous ventilation with adequate TV. OP suctioned, OA placed. Extubated, vital signs stable, transported to PACU with O2 via NC. 1026 an stop data 1032 Handoff to RN 1034 An Stop Meds Name Total midazolam (VERSED) injection 2 mg/2 mL 2 mg fentaNYL (SUBLIMAZE) injection 100 mcg propofol (DIPRIVAN) injection 200 mg lidocaine (XYLOCAINE) injection 1% 50 mg atracurium injection 50 mg/5 mL 30 mg ondansetron 2 mg/mL 4 mg neostigmine 1 mg/mL 3 mg glycopyrrolate 0.2 mg/mL 0.5 mg phenylephrine 10 mg/mL 100 mcg ePHEDrine injection 40 mg propofol (DIPRIVAN) infusion 10 mg/mL 10 0 mL 990 mg dexamethasone (DECADRON) 10 mg in sodium chloride 0.9 % IVPB 10 mg remifentanil (ULTIVA) 2 mg in sodium chl oride 0.9 % 40 mL 4.29 mg phenylephrine (YULISSA-SYNEPHRIN E) 10 mg in sodium chloride 0.9 % 100 mL infusion 1.11 mg sodium chloride 0.9 % infusion 700 mL lactated ringers infusion 1,000 mL * Agents Name O2 Desflurane * Blood No blood administrations on file. Lines, Drains, and Airways Type Details Placement Removal Retired Peripheral IV Line - Single Lumen 12/02/15; median vein (underside of arm), left; 18 gauge; no longer indicated, removed per policy/procedure, catheter/device intact; 12/04/15; 1010 12/02/15 0000 by Joe Raymond RN 12/04/15 1010 by Mag Crabtree RN Retired Peripheral IV Line - Single Lumen 12/02/15; 0619; cephalic vein (lateral side of arm), right; sajp-dih-vhwzji catheter system; 18 gauge; intradermal injection; (dc per OR staff prior to arrival); 12/02/15; 1145 12/02/15 0619 by Janey Jones RN 12/02/15 1145 by Shirley Andersen, DOUG Retired Arterial Line 12/02/15; 0635 (created via procedure documentation); Right; radial artery; continuous blood pressure monitoring; no longer indicated; ana laura pressure held at site x5min. no bleeding noted. 2x2 gauze drsg applied. pt. radha.well. ; 12/02/15; 1100 12/02/15 0635 by Albin Melendez MD 12/02/15 1100 by Joe Raymond, RN Retired Arterial Line 12/02/15; 0655 (created via procedure documentation); Right; radial artery; continuous blood pressure monitoring; 12/02/15; 0742 (removed via procedure documentation) 12/02/15 0655 by Diann Maciel CRNA 12/02/15 0742 by Diann Maciel CRNA Retired Urethral Catheter 12/02/15; 0715; Monitoring of strict I &O; 100% silicone, silver hydrogel antimicrobial coated; 16; inserted at this facility; 10; 12/02/15; 1930 12/02/15 0715 by Miya Moses RN 12/02/15 1930 by Maura Hwang, DOUG Retired Airway 12/02/15; 0746 (crea davida via procedure documentation); 12/02/15; 1025 12/02/15 0746 by Diann Maciel CRNA 12/02/15 1025 by Diann Maciel CRNA Retired Incision 12/02/15; 0756; othe r (see comments); back; 08/22/17 (Removed via batch job for retired 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 CPM S17 upgrade); 1034 (Removed via batch job for retired LDAs post CPM S17 upgrade) 12/02/15 0756 by Miya Moses RN 08/22/17 1034 by Belt Dresser (MASKED), Batch documented in this encounter Social History Tobacco Use Types Packs/Day Years [...] on file documented as of this encounter OR Notes * Anesthesia Postprocedure Evaluation - Diann Maciel CRNA - 12/02/2015 10:33 AM EDT Patient: Sue Cardona Procedure Summary Date Anesthesia Start Anesthesia Stop Room / Location 12/02/15 0706 [facility] Procedure Diagnosis Surgeon Provider 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 (N/A Spine Lumbar) Spinal cord tumor (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]) MD Albin Alston MD Anesthesia Type: general Last vitals BP 117/63 (12/02/15 1033) Temp 98 ??F (36.7 ??C) (12/02/15 1033) Pulse 111 (12/02/15 1033) Resp 16 (12/02/15 1033) SpO2 99 % (12/02/15 1033) Post Anesthesia Care and Evaluation Patient location during evaluation: PACU Patient participation: waiting for patient participation Post-procedure mental status: asleep with spontaneous respirations. Pain management: adequate Airway patency: patent Anesthetic complications: no Cardiovascular status: hemodynamically stable and acceptable Respiratory status: nonlabored ventilation and acceptable Hydration status: stable * Anesthesia Procedure Notes - Diann Maciel CRNA - 12/02/2015 7:46 AM EDT Associated Order(s): ANESTHESIA INTUBATION Airway Urgency: elective Airway not difficult General Information and Staff Patient location during procedure: OR Anesthesiologist: ALBIN MELENDEZ Resident/EDGER LINER: DIANN MACIEL Indications and Patient Condition Indications for airway management: airway protection Preoxygenated: yes MILS not maintained throughout Mask difficulty assessment: 1 - vent by mask Final Airway Details Final airway type: endotracheal airway Successful airway: ETT Cuffed: yes Successful intubation technique: direct laryngoscopy Facilitating devices/methods: intubating stylet Endotracheal tube insertion site: oral Blade: Trey Blade size: #3 ETT size: 7.0 mm Cormack-Lehane Classification: grade I - full view of glottis Placement verified by: chest auscultation and capnometry Cuff volume (mL): 6 Measured from: lips ETT to lips (cm): 20 Number of attempts at approach: 1 Additional Comments Negative epigastric sounds, Breath sound equal bilaterally with symmetric chest rise and fall * Anesthesia Procedure Notes - Diann Maciel CRNA - 12/02/2015 7:41 AM EDT Associated Order(s): ANESTHESIA ARTERIAL LINE Arterial Line Patient location during procedure: pre-op Start time: 12/02/2015 6:35 AM Stop Time:12/02/2015 6:45 AM Line placed for hemodynamic monitoring. Performed By Anesthesiologist: ALBIN MELENDEZ EDGER LINER: DIANN MACIEL Preanesthetic Checklist Completed: patient identified, site marked, surgical consent, pre-op evaluation, timeout performed,IV checked, risks and benefits discussed and monitors and equipment checked Arterial Line Prep Outside Cutter: cap, gloves and sterile barriers Prep: ChloraPrep Patient monitoring: blood pressure monitoring, continuous pulse oximetry and EKG Arterial Line Procedure Laterality:right Location: radial artery Catheter size: 20 G Guidance: palpation technique Number of attempts: 1 Successful placement: yes Post Assessment Dressing Type: line sutured, occlusive dressing applied, secured with tape and wrist guard applied. Complications no Circ/Move/Sens Assessment: normal and unchanged. Patient Tolerance: patient tolerated the procedure well with no apparent complications * Anesthesia Preprocedure Evaluation - Albin Melendez MD - 12/02/2015 6:43 AM EDT Anesthesia Evaluation Patient summary reviewed and Nursing notes reviewed No history of anesthetic complications Airway Mallampati: I TM distance: >3 FB Neck ROM: full no difficulty expected Dental - normal exam Pulmonary breath sounds clear to auscultation (+) asthma, Cardiovascular - negative cardio ROS Exercise tolerance: good (4-7 METS) ECG reviewed Rhythm: regular Rate: normal Neuro/Psych (+) psychiatric history Depression, GI/Hepatic/Renal/Endo (+) GERD well controlled, Musculoskeletal (+) myalgias, Abdominal (-) obese Abdomen: soft. 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 Plan discussed with EDGER LINER. documented in this encounter Plan of Treatment Upcoming Encounters Date Type Department Care Team (Late st Contact Info) Description 03/10/2024 11:30 AM EST Office Visit [facility] RHEUMATOLOGY [address] [place] [phone] Ivan Alvarado DO [address] [facility] [address] [place], [place] [id number] 04/24/2024 10:50 AM EST Office Visit [facility] ORTHOPEDICS & SPORTS MEDICINE [address] [place] [phone] Solomon Aguilar MD [address] [facility] [address] [place] [address] documented as of this encounter Procedures Procedure Name Priority Date/Time Associated Diagnosis Comments ANESTHESIA INTUBATION Routine 12/02/2015 7:46 AM EDT ANESTHESIA ARTERIAL LINE Routine 12/02/2015 7:41 AM EDT documented in this encounter Results * ANESTHESIA INTUBATION (12/02/2015 7:46 AM EDT) Narrative Dainn Maciel CRNA - 12/02/2015 7:46 AM EDT Diann Maciel CRNA ? 12/02/2015 ??7:46 AM Airway Urgency: elective Airway not difficult General Information and Staff Patient location during procedure: OR Anesthesiologist: ALBIN MELENDEZ Resident/EDGER LINER: DIANN MACIEL Indications and Patient Condition Indications for airway management: airway protection Preoxygenated: yes MILS not maintained throughout Mask difficulty assessment: 1 - vent by mask Final Airway Details Final airway type: endotracheal airway Successful airway: ETT Cuffed: yes Successful intubation technique: direct laryngoscopy Facilitating devices/methods: intubating stylet Endotracheal tube insertion site: oral Blade: Trey Blade size: #3 ETT size: 7.0 mm Cormack-Lehane Classification: grade I - full view of glottis Placement verified by: chest auscultation and capnometry Cuff volume (mL): 6 Measured from: lips ETT to lips (cm): 20 Number of attempts at approach: 1 Additional Comments Negative epigastric sounds, Breath sound equal bilaterally with symmetric chest rise and fall Procedure Note Diann Maciel CRNA - 12/02/2015 7:46 AM EDT Airway Urgency: elective Airway not difficult General Information and Staff Patient location during procedure: OR Anesthesiologist: ALBIN MELENDEZ Resident/EDGER LINER: DIANN MACIEL Indications and Patient Condition Indications for airway management: airway protection Preoxygenated: yes MILS not maintained throughout Mask difficulty assessment: 1 - vent by mask Final Airway Details Final airway type: endotracheal airway Successful airway: ETT Cuffed: yes Successful intubation technique: direct laryngoscopy Facilitating devices/methods: intubating stylet Endotracheal tube insertion site: oral Blade: Trey Blade size: #3 ETT size: 7.0 mm Cormack-Lehane Classification: grade I - full view of glottis Placement verified by: chest auscultation and capnometry Cuff volume (mL): 6 Measured from: lips ETT to lips (cm): 20 Number of attempts at approach: 1 Additional Comments Negative epigastric sounds, Breath sound equal bilaterally with symmetricchest rise and fall Albin Melendez MD ANESTHESIA ORDERABLES Fin al Result * ANESTHESIA ARTERIAL LINE (12/02/2015 7:41 AM EDT) Narrative Diann Maciel CRNA - 12/02/2015 7:41 AM EDT Diann Maciel CRNA ? 12/02/2015 ??7:41 AM Arterial Line Patient location during procedure: pre-op Start time: 12/02/2015 6:35 AM Stop Time:12/02/2015 6:45 AM Line placed for hemodynamic monitoring. Performed By Anesthesiologist: ALBIN MELENDEZ EDGER LINER: DIANN MACIEL Preanesthetic Checklist Completed: patient identified, site marked, surgical consent, pre-op evaluation, timeout performed, IV checked, risks and benefits discussed and monitors and equipment checked Arterial Line Prep Outside Cutter: cap, gloves and sterile barriers Prep: ChloraPrep Patient monitoring: blood pressure monitoring, continuous pulse oximetry and EKG Arterial Line Procedure Laterality:right Location: ??radial artery Catheter size: 20 G Guidance: palpation technique Number of attempts: 1 Successful placement: yes ?? Post Assessment Dressing Type: line sutured, occlusive dressing applied, secured with tape and wrist guard applied. Complications no Circ/Move/Sens Assessment: normal and unchanged. Patient Tolerance: patient tolerated the procedure well with no apparent complications Procedure Note Diann Maciel CRNA - 12/02/2015 7:41 AM EDT Arterial Line Patient location during procedure: pre-op Start time: 12/02/2015 6:35 AM Stop Time:12/02/2015 6:45 AM Line placed for hemodynamic monitoring. Performed By Anesthesiologist: ALBIN MELENDEZ EDGER LINER: DIANN MACIEL Preanesthetic Checklist Completed: patient identified, site marked, surgical consent, pre-opevaluation, timeout performed, IV checked, risks and benefits discussedand monitors and equipment checked Arterial Line Prep Outside Cutter: cap, gloves and sterile barriers Prep: ChloraPrep Patient monitoring: blood pressure monitoring, continuous pulse oximetryand EKG Arterial Line Procedure Laterality:right Location: radial artery Catheter size: 20 G Guidance: palpation technique Number of attempts: 1 Successful placement: yes Post Assessment Dressing Type: line sutured, occlusive dressing applied, secured with tapeand wrist guard applied. Complications no Circ/Move/Sens Assessment: normal and unchanged. Patient Tolerance: patient tolerated the procedure well with no apparentcomplications Albin Melendez MD ANESTHESIA ORDERABLES Fin al Result documented in this encounter Visit Diagnoses Not on filedocumented in this encounter Administered Medications Inactive Administered Medications - up to 3 most recent administrations Medication Order MAR Action Action Date Dose Rate Site atracurium injection Intravenous, As Needed, Starting on Poonam 12/02/15 at 0711 Given 12/02/2015 7:11 AM EDT 30 mg dexamethasone (DECADRON) 10 mg in sodium chloride 0.9 % IVPB 10 mg, Intravenous, Every 6 Hours, First dose on Poonam 12/02/15 at 0630, For 1 doseIndications:Spinal cord tumor New Bag 12/02/2015 7:20 AM EDT 10 mg ePHEDrine injection Intravenous, As Needed, Starting on Poonam 12/02/15 at 0735 Given 12/02/2015 8:00 AM EDT 10 mg Given 12/02/2015 7:50 AM EDT 10 mg Given 12/02/2015 7:40 AM EDT 10 mg FentaNYL Citrate (PF) (SUBLIMAZE) injection Intravenous, As Needed, Severe Pain, Starting on Poonam 12/02/15 at 0711 Given 12/02/2015 9:58 AM EDT 50 mcg Given 12/02/2015 7:11 AM EDT 50 mcg glycopyrrolate (ROBINUL) injection Intravenous, As Needed, Excess Secretions, Starting on Poonam 12/02/15 at 1007 Given 12/02/2015 10:15 AM EDT 0.1 mg Given 12/02/2015 10:07 AM EDT 0.4 mg lactated ringers infusion 9 mL/hr, Intravenous, Continuous, Starting on Poonam 12/02/15 at 0715 [facility] 12/02/2015 7:06 AM EDT [facility] 12/02/2015 6:20 AM EDT 9 mL/hr 9 mL/hr lidocaine (XYLOCAINE) 1 % injection As Needed, Starting on Poonam 12/02/15 at 0711 Given 12/02/2015 7:11 AM EDT 50 mg midazolam (VERSED) injection As Needed, Starting on Poonam 12/02/15 at 0635 Given 12/02/2015 6:35 AM EDT 2 mg neostigmine (PROSTIGMINE) injection Intravenous, As Needed, Starting on Poonam 12/02/15 at 1007 Given 12/02/2015 10:07 AM EDT 3 mg ondansetron (ZOFRAN) injection Intravenous, As Needed, Nausea, Vomiting, Starting on Poonam 12/02/15 at 0958 Given 12/02/2015 9:58 AM EDT 4 mg phenylephrine (YULISSA-SYNEPHRINE) 10 mg in sodium chloride 0.9 % 100 mL infusion 10 mg, Continuous PRN, Starting on Poonam 12/02/15 at 0802 New Bag 12/02/2015 8:02 AM EDT 0.1 mcg/kg/min 5.4 mL/hr phenylephrine (YULISSA-SYNEPHRINE) injection Intravenous, As Needed, Starting on Poonam 12/02/15 at 0740 Given 12/02/2015 7:40 AM EDT 100 mcg propofol (DIPRIVAN) infusion 10 mg/mL 100 mL Continuous PRN, Starting on Poonam 12/02/15 at 0715 Rate/Dose Change 12/02/2015 9:58 AM EDT 25 mcg/kg/min 13.5 mL/hr Rate/Dose Change 12/02/2015 8:49 AM EDT 80 mcg/kg/min 43.2 mL/hr Rate/Dose Change 12/02/2015 8:43 AM EDT 60 mcg/kg/min 32.4 mL/hr Propofol (DIPRIVAN) injection Intravenous, As Needed, Starting on Poonam 12/02/15 at 0711 Given 12/02/2015 7:11 AM EDT 200 mg remifentanil (ULTIVA) 2 mg in sodium chloride 0.9 % 40 mL 2 mg, Continuous PRN, Starting on Poonam 12/02/15 at 0727 Rate/Dose Change 12/02/2015 9:58 AM EDT 0.25 mcg/kg/min 27 mL/hr New Bag 12/02/2015 9:52 AM EDT Rate/Dose Change 12/02/2015 8:49 AM EDT 0.375 mcg/kg/min 4 0.5 mL/hr sodium chloride 0.9 % infusion Intravenous, Continuous PRN, Starting on Poonam 12/02/15 at 0822 New Bag 12/02/2015 8:22 AM EDT documented in this encounter Care Teams Supply Service Worker Relationship Specialty Start Date End Date Afua Hurley DO [address] [place] [id number] PCP - General Family Medicine 10/14/15 documented as of this encounter
--- OUTSIDE RECORDS SUMMARY | 2024-02-24 15:59 | XMS_ITS | Encounter Summary ---
[facility] Address [address] [place] [id number] Care Team Providers Care Certified Detention Deputy Name Role Phone Afua Hurley Primary Care Provider [phone] Reason for Visit * Reason Comments Follow-up Encounter Details Date Type Department Care Team (Late st Contact Info) Description 06/03/2019 1:40 PM EST Office Visit [facility] NEUROSURGERY [address] [phone] Artemio Hudson MD [address] [place] [address] Spinal cord tumor (Primary Dx) Social History [...] - Pulse - - Temperature 36.9 ??C (98.5 ??F) 06/03/2019 1:58 PM ES T Respiratory Rate - - Oxygen Saturation - - Inhaled Oxygen Concentration - - Weight 108 kg (239 lb) 06/03/2019 1:58 PM EST Height 162.6 cm (5' 4 ) 06/03/2019 1:58 PM EST Body Mass Index 41.02 06/03/2019 1:58 PM EST documented in this encounter Progress Notes * Artemio Hudson MD - 06/03/2019 1:40 PM EST Patient: Sue Cardona : 1960 Primary Care Provider: Afua Hurley DO Requesting Provider: As above History Chief Complaint: Back pain. History of Present Illness: Ms. Mcdonald is a 59-year-old woman who presented with increasing mid back [...] She's had no further difficulties in that regard.?? She did not undergo adjuvant treatment of any sort. She continues to have sensory alteration from the groin down into her feet. She has just had left knee surgery and some injections in her feet. Review of Systems Constitutional: [...] urgency. Musculoskeletal: Positive for arthralgias, back pain, myalgias and neck stiffness. Negative for gait problem, joint swelling and neck pain. Skin: Negative for color change, pallor, rash and wound. Allergic/Immunologic: Negative for environmental allergies, food allergies and immunocompromised state. Neurological: Positive for weakness and headaches. Negative for dizziness, tremors, seizures, syncope, facial asymmetry, speech difficulty, light- headedness and numbness. Hematological: Negative for adenopathy. Does not bruise/bleed easily. Psychiatric/Behavioral: Positive for decreased concentration and dysphoric mood. Negative for agitation, behavioral problems, confusion, hallucinations, self- injury, sleep disturbance and suicidal ideas. The patient is nervous/anxious. The patient is not hyperactive. The patient's past medical history, past surgical history, family history, and social history have been reviewed at length in the electronic medical record. Physical Exam: Temp 98.5 ??F (36.9 ??C) (Temporal) Ht 162.6 cm (64 ) Wt 108 kg (239 lb) BMI 41.02 kg/m?? MUSCULOSKELETAL: Straight leg raising is negative. Juan R's Sign is negative. Tenderness in the back to palpation is not observed. NEUROLOGICAL: Strength is intact in the lower extremities to direct testing. Muscle tone is normal throughout. Station and gait are normal. Sensation is intact to light touch testing throughout. Deep tendon reflexes are 2+ and symmetrical. Coordination is intact. Medical Decision Making Data Review: Follow-up MRI from today is compared to a study from 05/14/2018. Postsurgical changes are identified in the midthoracic region. I do not see any residual or recurrent tumor. Diagnosis: Thoracic spinal ependymoma status post resection. Treatment Options: Ms. Cardona will follow-up in 1 year with a new MRI of the thoracic spine with and without gadolinium. Diagnosis Plan 1. Spinal cord tumor MRI Thoracic Spine With & Without Contrast Scribed for Artemio Hudson MD by Miya Patrick CMA on 06/03/2019 at 2:00 PM I, Dr. Hudson, personally performed the services described in the documentation, as scribed in my presence, and it is both accurate and complete. documented in this encounter Plan of Treatment Upcoming Encounters Date Type Department Care Team (Late st Contact Info) Description 03/10/2024 11:30 AM EST Office Visit [facility] RHEUMATOLOGY [address] [facility] [address] [place] [phone] Ivan Alvarado DO [address] [facility] [address] [place], [place] [id number] 04/24/2024 10:50 AM EST Office Visit [facility] ORTHOPEDICS & SPORTS MEDICINE [address] [facility] [address] [place] [phone] Solomon Aguilar MD [address] [facility] [address] [place], [place] [phone] documented as of this encounter Visit Diagnoses Diagnosis Spinal cord tumor- Primary 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
--- OUTSIDE RECORDS SUMMARY | 2024-02-24 15:59 | XMS_ITS | Encounter Summary ---
[facility] Address [address] [place] [address] Care Team Providers Care Lace Stripper Name Role Phone Afua Hurley DO Primary Care Provider [phone] Reason for Referral * Diagnostic Imaging (Routine) - Closed Specialty Diagnoses / Procedures Referred By Contac t Referred To Contact Radiology Diagnoses Spinal cord tumor Procedures MRI Thoracic Spine With & Without Contrast Artemio Hudson MD [address] [place] [address] Phone: tel: fax: [facility] MRI [address] [place] [address] Phone: tel: Referral ID Status Reason Start Date Expiration Date Visits Re quested Visits Authorized [id number] Closed 05/09/2019 06/07/2019 1 1 Reason for Visit * Diagnostic Imaging (Routine) - Closed Specialty Diagnoses / Procedures Referred By Contac t Referred To Contact Radiology Diagnoses Spinal cord tumor Procedures MRI Thoracic Spine With & Without Contrast Artemio Hudson MD [address] [place] [address] Phone: tel: fax: [facility] MRI [address] [place] [address] Phone: tel: Referral ID Status Reason Start Date Expiration Date Visits Re quested Visits Authorized [id number] Closed 05/09/2019 06/07/2019 1 1 Encounter Details Date Type Department Care Team (Late st Contact Info) Description 06/03/2019 10:37 AM EST - 06/03/2019 11:59 PM EST Hospital Encounter [facility] MRI [address] [place] [id number] Artemio Hudson MD [address] [place] [address] Spinal cord tumor Discharge Disposition: Home or Self Care Social History Tobacco Use Types Packs/Day Years Used Date Smoking Tobacco: Former Cigarettes 1 8 1 [phone] Smokeless Tobacco: Never Alcohol Use Standard Drinks/Week [...] mouth three times a day 09/28/2015 4 meclizine (ANTIVERT) 12.5 MG tablet Take 1 tablet by mouth 3 (Three) Times a Day As Needed for Dizziness. 4 minocycline (MINOCIN,DYNACIN ) 100 MG capsule [...] [facility] RHEUMATOLOGY [address] [facility] [address] [place] [address] Ivan Alvarado DO [address] [facility] [address] [place] [address] 04/24/2024 10:50 AM EST Office Visit [facility] ORTHOPEDICS & SPORTS MEDICINE [address] [facility] [address] [place] [address] Solomon Aguilar MD [address] [facility] [address] [place] [address] documented as of this encounter Procedures Procedure Name Priority Date/Time Associated Diagnosis Comments MRI THORACIC SPINE W WO CONTRAST Routine 06/03/2019 11:30 AM EST Spinal cord tumor POCT CREATININE Routine 06/03/2019 10:57 AM EST documented in this encounter Results [...] 06/03/2019 1:[address] Dejon Zayas. us Artemio Hudson MD IMG MRI ORDERABLES Final Resu lt * POC Creatinine (06/03/2019 10:57 AM EST) Creatinine 1.10 0.60 - 1.30 mg/dL 06/06/2019 5:31 AM EST [facility] Comment:Serial Number: [id number] 5Operator: [id number] Blood 06/03/2019 10:5 7 AM EST 06/06/2019 5:31 AM EST Artemio Hudson MD POINT OF CARE TEST ORDERABLES Final Result [facility]
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 documented in this encounter Administered Medications Inactive Administered Medications - up to 3 most recent administrations Medication Order MAR Action Action Date Dose Rate Site gadobenate dimeglumine (MULTIHANCE) injection 20 mL 20 mL, Intravenous, Once in Imaging, On 06/03/19 at 1132, For 1 dose, Vesicant; admin as rapid bolus; flush with 5 mL NS after admin or 20 mL for renal or aortoiliofemoral vasculature Given 06/03/2019 11:20 AM EST 20 mL documented in this encounter Care Teams Lace Stripper Relationship Specialty Start Date End Date Afua Hurley DO [address] [place] [address] PCP - General Family Medicine 10/14/15 documented as of this encounter
--- OUTSIDE RECORDS SUMMARY | 2024-02-24 15:59 | XMS_ITS | Encounter Summary ---
[facility] Address [address] [place] [id number] Care Team Providers Care Sparmaker Name Role Phone Afua Hurley Primary Care Provider [phone] Encounter Details Date Type Department Care Team (Late st Contact Info) Description 05/14/2018 1:00 PM EST Office Visit [facility] NEUROSURGERY [address] [place] [phone] Artemio Hudson MD [address] [facility] [address] [place] [address] Spinal cord tumor (Primary Dx) Social History [...] Pressure - - Pulse - - Temperature 37.2 ??C (98.9 ??F) 05/14/2018 1:06 PM ES T Respiratory Rate - - Oxygen Saturation - - Inhaled Oxygen Concentration - - Weight 105 kg (232 lb) 05/14/2018 1:06 PM EST Height 162.6 cm (5' 4 ) 05/14/2018 1:06 PM EST Body Mass Index 39.82 05/14/2018 1:06 PM EST documented in this encounter Progress Notes * Artemio Hudson MD - 05/14/2018 1:00 PM EST Patient: Sue Cardona : 1960 Primary Care Provider: Afua Hurley DO Requesting Provider: As above History Chief Complaint: Back pain. History of Present Illness: Ms. Macedo is a 58-year-old woman who presented with increasing mid back [...] groin down into her feet. She has put on a good deal of weight since her surgical intervention. She apparently is going to work on increasing her activity and dieting in an effort to lose someweight. She has some urinary urgency but no yokasta bowel or bladder dysfunction. She is mildly unsteady on her feet. Review of Systems Constitutional: Negative [...] the electronic medical record. Physical Exam: Temp 98.9 ??F (37.2 ??C) (Temporal) Ht 162.6 cm (64 ) Wt 105 kg (232 lb) BMI 39.82 kg/m?? The patient ambulates in a slightly unsteady yet quite independent fashion. Strength is intact to direct testing in her lower extremities. Sensation is altered rather globally in the legs to light touch testing. Reflexes are 3+ and symmetrical. Medical Decision Making Data Review: Follow-up MRI of the thoracic spine demonstrates myelomalacia with thinning of the cord at her tumor resection site. I do not see evidence of recurrent or residual tumor. 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 Treatment Options: Ms. Cardona is doing quite well. She has some modest neurologic deficits but overall is quite functional. 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 We have discussed the merits of weight loss as it relates to her overall functionality. She will follow-up in 1 year with a new MRI ofthe thoracic spine with and without gadolinium. Diagnosis Plan 1. Spinal cord tumor MRI Thoracic Spine With & Without Contrast Scribed for Artemio Hudson MD by Miya Patrick CMA on 05/14/2018 at 1:07 PM I, Dr. Hudson, personally performed the services described in the documentation, as scribed in my presence, and it is both accurate and complete. documented in this encounter Plan of Treatment Upcoming Encounters Date Type Department Care Team (Late st Contact Info) Description 03/10/2024 11:30 AM EST Office Visit [facility] RHEUMATOLOGY [address] [facility] [address] [place] [address] Ivan Alvarado DO [address] [facility] [address] [place] [address] 04/24/2024 10:50 AM EST Office Visit 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
--- OUTSIDE RECORDS SUMMARY | 2024-02-24 16:00 | XMS_ITS | Encounter Summary ---
Author Organization Healthcare Address [facility] [place] [address] Care Team Providers Care Rn Urology Name Role Phone Unavailable Primary Care Provider Unavailabl e Encounter Details Date Type Department Care Team (Late st Contact Info) Description 09/25/2013 [facility] Vitals Encounter [facility] CON[facility] [address] [place] [address] ProviderUlises MD [address] [place] [address] Social History Tobacco Use Types Packs/Day Years Used Date Smoking Tobacco: Never Assessed Comments Unknown Sex and Gender Information Value Date Recorded Sex Assigned at Not on file Legal Sex Female 8:12 PM EDT Gender Identity Not on file Sexual Orientation Not on file documented as of this encounter Last Filed Vital Signs Vital Sign Reading Time Taken Comments Blood Pressure - - Pulse - - Temperature - - Respiratory Rate - - Oxygen Saturation - - Inhaled Oxygen Concentration - - Weight 92.1 kg (203 lb) 09/25/2013 1:37 PM EDT Height 162.6 cm (5' 4 ) 09/25/2013 1:37 PM EDT Body Mass Index 34.84 09/25/2013 1:37 PM EDT documented in this encounter Plan of Treatment Not on file documented as of this encounter Visit Diagnoses Not on filedocumented in this encounter
--- OUTSIDE RECORDS SUMMARY | 2024-02-24 16:00 | XMS_ITS | Data Portability ---
Author Organization [facility] SHONDA GaoS GULF BREEZE CLOSED Address [address] [place] [address] Care Team Providers Care Tile Finisher Name Role Phone ESTUARDO BURK Primary Care Provider [phone] Assessment No assessment recorded. Plan of Treatment Reminders Order Date Submit Date Provider Last Modified By Organization Details Last Modified Time Details Appointments RECHECK 2024 10:30A M JOSE DAVID CORTEZ MD Not available Not available Not available Lab cortisol, serum or plasma 2021 022 [facility], [address] [place] [address], [phone], 03/28/2022 12:37:30 cortisol, serum or plasma 2023 024 [facility], [address] [place] [address], [phone], 05/16/2023 11:26:17 acth, plasma 2023 024 [facility], [address] [place] [address], [phone], 05/20/2023 15:29:53 TSH, serum or plasma 2023 024 [facility], [address] [place] [address], [phone], 05/16/2023 11:26:19 T4, free, serum 2023 024 [facility], [address] [place] [address], [phone], 05/16/2023 11:26:15 Referral None recorded. Procedures None recorded. Surgeries None recorded. Imaging US, neck, soft tissue 2023 024 [facility], [address] [place], [address], 05/30/2023 16:21:29 Medication Orders prednison e 5 mg tablet 2022 023 [facility], [address], [address], 05/17/2022 11:42:21 clobetaso l 0.05 % scalp solution [email or web address] [facility], [address], [address], 06/07/2023 17:53:24 Patient TargetsNo targets recorded. Patient InstructionsNo instructions recorded. Reason for Referral None Reported. Results Created Date Observation Date Name Description Value Unit Range Abnormal Flag Note LastModifiedBy Organization Detail LastModifiedTime 03/28/20 22 03/28/2022 CORTI BRANDON cortisol 5.37 ug/dL 2.68-1 8.40 normal CORTI BRANDON LAWRENCE L RANGE S: 6 am to 10 am 6.02 - 18.4 ug/dL 4 pm to 8 pm 2.68 - 10.5 ug/dL . Not Available [facility] [address] [place] [address], [phone], 03/28/2022 12:37:30 05/16/19 24 05/16/2023 T4,FR EE T4,free 0.92 NG/dL 0.93-1 .70 low Not Available [facility] [address] [place] [address], [phone], 05/16/2023 11:26:15 05/16/19 24 05/16/2023 CORTI BRANDON cortisol 3.93 ug/dL 2.68-1 8.40 normal CORTI BRANDON LAWRENCE L RANGE S: 6 am to 10 am 6.02 - 18.4 ug/dL 4 pm to 8 pm 2.68 - 10.5 ug/dL . Not Available [facility] [address] [place], [address], 05/16/2023 11:26:17 05/16/19 24 05/16/2023 TSH TSH 7.610 u[IU] /mL 0.270- 4.200 high Not Available [facility] [address] [place], [address], 05/16/2023 11:26:18 05/16/19 24 05/20/2023 ACTH acth 9 pg/mL 6-50 normal Refer ence range appli es only to the speci mens colle cted betwe en 7am-1 0am. Not Available [facility] [address] [place] [address], [phone], 05/20/2023 15:29:53 05/30/19 24 05/30/2023 US, neck, soft tissu e [facility] [address] [place] [address] [place] [address] Crystal ben Name: GABRIEL contreras : [birth year] 65 Crystal contreras Orderi ng Provid er: JOSE DAVID CORTEZ EXAM DATE: 2023 EXAM: US ECHO THYROI D OR PAROTI D CLINIC AL INFORM ATION: Hashim ronen's thyroi ditis. TECHNI QUE: Multip le sonogr aphic images of the thyroi d gland were obtain ed. COMPAR PABLO: 2017 FINDIN GS: Isthmu s measur es 0.4 cm in thickn ess. Right lobe measur es 4 x 2 x 1.7 cm. Left lobe measur es 3.4 x 1.5 x 1.3 cm. The gland is small in size and hetero geneou s in echote xture. Bilate ral thyroi d nodule s are seen. The domina nt nodule in the right lobe measur es 0.6 x 0.4 x 0.9 cm cm. The domina nt nodule in the left lobe measur es 1.2 x 0.7 x 1.4 cm. No signif icant change is seen as compar ed to the previo us exam. IMPRES NADIA: 1. Appear ance is of Hashim ronen's thyroi ditis. 2. Althou gh the left lobe nodule measur es larger as compar ed to the previo us exam, the rate of change is not signif icant. There is no indica tion for FNA. Interp reted By: Clark Coyne MD Electr onical ly Signed By: Clark Coyne MD on 024 4:16 PM [facility] [address] [place], [address], 06/04/2023 11:11:03 Result Notes None recorded. Problems Name Problem SNOMED Code Status Onset Date Resolution Date Notes Provider Name and Address Organization Details Recorded Time Obesity 017995617 Active 2015 Provider: Gil Acevedo;Statu s: Active Not Available [facility] 6 07:38:46 Autoimmun e thyroidit is 65851783 Active 2015 From Automated Load;Provi regi: Jose David Cortez;Stat us: Active Not Available [facility] 6 07:38:46 Non-toxic multinodu lar goiter 29474599 Active 2015 From Automated Load;Provi regi: Jose David Cortez;Stat us: Active Not Available [facility] 6 07:38:46 Problem Notes None recorded. Procedures Surgical History Date Name Laterality Status Provider Name and Address Organization Details Recorded Time 07/26/19 24 DAK - Intralesional Injection completed KRISTI HARDING PA-C [address] [place], [address], [facility] 07/26/2023 13:57:57 06/07/19 24 DAK - Intralesional Injection completed Tyrese Small [facility] 06/07/2023 08:57:56 09/17/19 22 MNT Initial Visit completed BAILEY NICHOLS, RD [address] [place], [address], [facility] 09/19/2021 09:17:16 Imaging Results Imaging Date Name Status LastModified by Organiz ation Details LastModified Time 05/30/2023 US, neck, soft tissue completed [facility] [address] [place], [address], 06/04/2023 11:11:03 Procedure Notes None recorded. Medical Equipment None Reported. Allergies No known drug allergies Medications Name Sig Start Date Stop Date Status Note LastModified by Organization Details LastModified Time Singulair 10 mg tablet Take 1 tablet every day by oral route. active Not Available Not Available No t Available hydrocort isone 5 mg tablet 2 tablets every a.m. and 1 tablet at noon 2023 active Not Available Not Available Not Avai lable cyclobenz aprine 10 mg tablet As needed active Frequenc y: prn;Medi cation Descript ion: cycloben zaprine; Dosage:1 ; Route:or al; refills: 0 Not Available Not Available Not Available Celexa 10 mg tablet Take 1 tablet every day by oral route. active Not Available Not Available No t Available clindamyc in HCl 300 mg capsule Take 1 capsule 4 times a day by oral route. 02/28 completed Not Available Not Available Not Available trazodone 50 mg tablet Bedtime 05/17 completed Frequenc y: hs;Alt Frequenc y: as direct.; Medicati on Descript ion: trazodon e; Dosage:1 -2; Route:or al; refills: 3; Quantity :60 tablet Not Available Not Available Not Available Cenestin 1.25 mg tablet Daily 03/06 completed Frequenc y: daily;Me dication Descript ion: conjugat ed estrogen s; Dosage:1 ; Route:or al; refills: 0; Quantity :30 tablet Not Available Not Available Not Available prednison e 5 mg tablet Take 1 tablet every day by oral route in the evening for 90 days. 2022 active Not Available Not Available Not Avai lable Neurontin 600 mg tablet Take 2 tablets 3 times a day by oral route. active Not Available Not Available No t Available meclizine 12.5 mg tablet TAKE 1 TABLETS (25 MG) BY ORAL ROUTE 3 TIMES PER DAY NEEDED active Not Available Not Available No t Available aspirin 81 mg tablet,de layed release Take 1 tablet every day by oral route. active Not Available Not Available No t Available tramadol 50 mg tablet Take 1 tablet 3 times a day by oral route. active Not Available Not Available No t Available spironola ctone 25 mg tablet Take 1 tablet every day by oral route. active Not Available Not Available No t Available baclofen 20 mg tablet Every twelve hours 11/29 completed Duration : 30 days;Ins truction s: Take 1 tablet at 8am & 3pm;Freq uency: q12h;Alt Frequenc y: as direct.; Medicati on Descript ion: baclofen ; Dosage:1 ; Route:or al; refills: 5; Quantity :60 tablet Not Available Not Available Not Available Cortrosyn 0.25 mg solution for injection INJECT 0.25 MG BY INTRAMUS CULAR ROUTE ONCE 03/01 completed Not Available Not Available Not Available Celebrex 200 mg capsule bid active Duration : 30 days;Renato quency: daily;Me dication Descript ion: celecoxi b; Dosage:1 ; Route:or al; refills: 0; Quantity :30 capsule Not Available Not Available Not Available oxycodone -acetamin ophen 5 mg-325 mg tablet Every six to eight hours 11/29 completed Frequenc y: q6-8h;Me dication Descript ion: acetamin ophen-ox ycodone; Dosage:1 ; Route:or al; refills: 0 Not Available Not Available Not Available rifampin 300 mg capsule bid for 8 wks 05/17 completed Not Available Not Available Not Available levothyro xine 50 mcg tablet Take 1 tablet every day by oral route in the morning for 90 days. 2023 active Not Available Not Available Not Avai lable Zomig 5 mg tablet TAKE 1 TABLET (5 MG) BY ORAL ROUTE ONCE; IF HEADACHE RETURNS, THE DOSE MAY BE REPEATED AFTER 2 HOURS, NOT TO EXCEED 10 MG WITHIN 24 HOURS active Not Available Not Available No t Available cyanocoba mohit (vit B-12) 1,000 mcg/mL injection solution active Not Available Not Available Not Available ropinirol e 0.5 mg tablet Take 1 tablet every day by oral route at bedtime. active Not Available Not Available No t Available Neurontin 400 mg capsule Every eight hours 03/06 completed Instruct ions: 1 q 8 hours.;F requency : q8h;Medi cation Descript ion: gabapent in; Dosage:1 ; Route:or al; refills: 5; Quantity :90 capsule Not Available Not Available Not Available Proventil HFA 90 mcg/actua tion aerosol inhaler prn active Medicati on Descript ion: albutero l; Dosage:a s directed ; Route:in halation ; refills: 0; Quantity :0 aerosol with adapter Not Available Not Available Not Available hydrocort isone 10 mg tablet Take 1 tablet upon awakenin g and half tablet at noon 03/01 completed not taking Not Available Not Available Not Available clobetaso l 0.05 % scalp solution Apply to the scalp BID x2 weeks, then take two week break. 2023 active Not Available Not Available Not Avai lable Cymbalta 60 mg capsule,d elayed release bid active Duration : 30 days;Renato quency: daily;Al t Frequenc y: as direct.; Medicati on Descript ion: duloxeti ne; Dosage:1 ; Route:or al; refills: 0; Quantity :30 delayed release capsule Not Available Not Available Not Available Vitamin C active Not Available Not Nadine ilable Not Available Vitamin D active Not Available Not Nadine ilable Not Available Multivita mins Daily active Duration : 30 days;Renato quency: daily;Me dication Descript ion: multivit perez; Dosage:1 ; refills: 0; Quantity :30 Not Available Not Available Not Available BD Eclipse 25 gauge x 1 needle 1000mcg monthly inj of B12 active Not Available Not Available No t Available Vitamin B12 1000mcg monthly inj active Not Available Not Available No t Available Vitals Date Recorded Body height Body mass index (BMI) Body weight Heart rate Systolic blood pressure Diastolic blood pressure Provider Name and Address Organization Details Last Updated DateTime 2 161.93 cm 41.9 kg/m2 299482. 35 g 82 /min 128 mm[Hg] 66 mm[Hg] Denise Elias [facility] 2 11:54:35 Date Recorded Body height Body mass index (BMI) Body weight Heart rate Systolic blood pressure Diastolic blood pressure Provider Name and Address Organization Details Last Updated DateTime 3 161.93 cm 43.6 kg/m2 958192. 28 g 78 /min 135 mm[Hg] 82 mm[Hg] Macarena Wasserman [facility] 3 11:05:20 Date Recorded Body height Body mass index (BMI) Body weight Heart rate Systolic blood pressure Diastolic blood pressure Provider Name and Address Organization Details Last Updated DateTime 4 161.93 cm 39.8 kg/m2 050276. 25 g 106 /min 128 mm[Hg] 8 mm[Hg] Rosana Nix [facility] 4 10:09:13 Date Recorded Body height Provider Name an d Address Organization Details Last Updated DateTime 06/07/2023 161.93 cm Bert [facility] 06/07/2023 08:23:29 Date Recorded Body height Provider Name an d Address Organization Details Last Updated DateTime 07/26/2023 161.93 cm Bert [facility] 07/26/2023 10:59:15 Social History Question Answer Notes LastModified by Organizat ion Details LastModified Time Tobacco Smoking Status [facility]2016 09:21:22 What Was The Date Of Your Most Recent Tobacco Screening? 03/06/2018 Information n ot available 05/27/2019 Sex: Female Functional Status None recorded. Mental Status None recorded. Family History Relationship Description Onset Age of this Age Resolved Age Notes LastModified by Organization Details LastModified Time Mother Family history of malignant neoplasm breast , patern al grandm other also Not available 03/06/2018 10:58:46 Father Family history of malignant neoplasm lung, trache a Not available 03/06/2018 10:58:46 Medical History Condition Response Squamous Cell Carcinoma N Basal Cell Carcinoma N Arthritis Y Melanoma N Hypothyroidism Gynecological HistoryNo gynecological history recorded. Obstetrics History GPAL:G 0 P 0 0 0 0 Past Encounters Encounter ID Performer Location Encounter Start Date Encounter Closed Date Diagnosis/Indication Diagnosis SNOMED-CT Code Diagnosis ICD10 Code [id number] JOSE DAVID CORTEZ MD [facility] [address] [place] [address] 11/29/2016 09:12:03 11/29/2016 10:31:41 Non-toxic multinodular goiter 35812693 E04.2 E06.3 Edis thyroiditis 21 488508 E06.3 [id number] JOSE DAVID CORTEZ MD [facility] [address] [place] [address] 1 03/06/2018 09:40:43 03/06/2018 11:33:50 Edis thyroiditis 22235739 E06.3 Thyroid nodule 376424029 E04.1 [id number] JOSE DAVID CROTEZ MD [facility] [address] [place] [address] 1 02/28/2019 10:37:40 02/28/2019 11:38:43 Edis thyroiditis 83349297 E06.3 Deficiency of vitamin D3 681801570 E55.9 Fatigue 42491715 R53.83 [id number] JOSE DAVID CORTEZ MD [facility] [address] [place] [address] 1 05/17/2021 10:01:58 05/26/2021 06:10:52 Edis thyroiditis 87532198 E06.3 Vitamin D deficiency 347 84185 E55.9 Fatigue 30893692 R53.83 [id number] JOSE DAVID CORTEZ MD [facility] [address] [place] [address] 1 05/23/2021 10:52:39 05/30/2021 08:43:56 Adrenal cortical hypofunction 635256181 E27.40 [id number] JOSE DAVID CORTEZ MD [facility] [address] [place] [address] 1 09/06/2021 09:36:16 09/06/2021 10:33:16 Adrenal cortical hypofunction 566463230 E27.40 Morbid obesity 796862119 E66.[id number] [facility] [address] [place] [address] 09/16/2021 12:58:08 09/19/2021 09:19:49 Counseling [id number] Z71.3 Obesity 185806743 E66.01 [id number] JOSE DAVID CORTEZ MD [facility] [address] [place] [address] 1 03/01/2022 11:29:04 03/01/2022 12:25:47 Adrenal cortical hypofunction 293914734 E27.40 Morbid obesity 379378360 E66.01 [id number] JOSE DAVID CORTEZ MD [facility] [address] [place] [address] 1 05/17/2022 10:26:14 05/17/2022 12:40:12 Adrenal cortical hypofunction 331236078 E27.40 Morbid obesity 758070688 E66.01 [id number] JOSE DAVID CORTEZ MD [facility] [address] [place] [address] 1 05/16/2023 09:57:46 05/16/2023 10:26:29 Adrenal cortical hypofunction 763751597 E27.40 Morbid obesity 937113573 E66.01 Non-toxic multinodular goiter 30100233 E04.2 E06.3 [id number] [place] [address] 06/07/2023 08:16:20 06/08/2023 13:56:27 Alopecia areata 47324806 L63.8 [id number] KRISTI HARDING PA-C [address] [address] 07/26/2023 10:46:26 07/30/2023 12:34:29 Alopecia areata 59388930 L63.8 Health Concerns Section Related Observation LastModified by Organization Detai ls LastModified Time None Recorded Concern Status LastModified by Organization Details LastModified Time None Recorded Advance Directives Directive None Recorded Payers Encounter Date Sequence Insurance Name Policy Number Policy Ruiz Covered Member ID Ruiz Member ID Guarantor Name 03/01/2022 2 [place] [id number] R Wyatt Cardona [id number] Gabriel Cardona 03/01/2022 1 [place] Gabriel Cardona [id number] Gabriel Cardona 05/17/2022 2 [place] [id number] R Wyatt Cardona [id number] Gabriel Cardona 05/17/2022 1 [place] Gabriel Cardona [id number] Gabriel Cardona 05/16/2023 2 [place] [id number] R Wyatt Cardona [id number] Gabriel Cardona 05/16/2023 1 [place] Gabriel Cardona [id number] Gabriel Cardona 06/07/2023 2 [place] [id number] R Wyatt Cardona [id number] Gabriel Cardona 06/07/2023 1 [place] Gabriel Cardona [id number] Gabriel Cardona 07/26/2023 2 [place] [id number] Maritza Cardona [id number] Gabriel Cardona 07/26/2023 1 [place] Gabriel Cardona [id number] Gabriel Cardona Notes Date Note Type Note Provider Name and Address Organization Details Recorded Time 2 text/html 61-year-old female patient with a past medical history of Edis thyroiditis, multinodular goiter, obesity status post gastric sleeve surgery, recently diagnosed adrenal insufficiency seen today for 6 months follow-up visit. Complaining of fatigue and inability to lose weight Admitted not exercising because of knee arthritis. She is not on low-calorie diet ACTH a solution test on 05/23/2021 showed low baseline cortisol 0.91 and 30 minutes/30 minute cortisol of 5.5 and 6.8 respectively. Consequently she was a started on hydrocortisone 10 mg every a.m. and 5 mg at noon She did not start therapy on i.e. upon questioning she stated that she was concerned about weight gain. Interval history: Once again she stated that she does not take her hydrocortisone concerned about side effects such as weight gain She denies any nausea, vomiting, abdominal pain or dizziness JOSE DAVID CORTEZ MD [address] [place], [address], [facility] 03/01/2022 12:12:29 3 text/html 62-year-old female patient with a past medical history of Edis thyroiditis, multinodular goiter, obesity status post gastric sleeve surgery, recently diagnosed adrenal insufficiency seen today for 3 months follow-up visit adrenal insufficiency/obesity Summary of history:Complaining of fatigue and inability to lose weightAdmitted not exercising because of knee arthritis.She is not on low-calorie dietACTH a solution test on 05/23/2021 showed low baseline cortisol 0.91 and 30 minutes/30 minute cortisol of 5.5 and 6.8 respectively.Consequently she was a started on hydrocortisone 10 mg every a.m. and 5 mg at noonShe did not start therapy on i.e. upon questioning she stated that she was concerned about weight gain.Interval history:Repeat electronic warfare linguist cortisol 5.3Hesitant to take prednisone concerned about weight gainShe denies any nausea, vomiting, abdominal pain or dizziness JOSE DAVID CORTEZ MD [address] [place] [address], [address], [facility] 05/17/2022 12:01:41 4 text/html 63-year-old female patient with a past medical history of Edis thyroiditis, multinodular goiter, obesity status post gastric sleeve surgery, adrenal insufficiency seen today for 3 months follow-up visit adrenal insufficiency/obesity/thy roid Summary of history:ACTH a solution test on 05/23/2021 showed low baseline cortisol 0.91 and 30 minutes/30 minute cortisol of 5.5 and 6.8 respectively.Consequently she was a started on hydrocortisone 10 mg every a.m. and 5 mg at noonShe did not start therapy on i.e. upon questioning she stated that she was concerned about weight gain.Interval history:Repeat electronic warfare linguist cortisol 5.3Alternatively she was started on prednisone 5 mg every Today she comes into the office and stated that she self discontinued prednisone concerned about side effects i.e. weight gain, buffalo hump. She denies any recent onset fatigue or anorexia Intentional weight loss on Ozempic therapy prescribed by her PCPShe denies any nausea, vomiting, abdominal pain or dizzinessComplaining of chronic low back pain and currently on analgesics through pump JOSE DAVID CORTEZ MD [address] [place], [address], [facility] 05/16/2023 10:26:11 4 text/html I'm having hair loss Where in the scalp it began: l HairlineGeneral duration: ~{{weeks months years 20 + years#}}Predominant symptom:{{asymptomatic it remy sensitive painful o ther-- patches #}}Prior treatment(s): ILK scalp injectionsIn recent months, the problem seems to be:{{minimally changed* improving worsen ing}}- flares up after surgeries, pt has seen massa in the past for injections. pt has had this since 1982. KRISTI HARDING PA-C [address] [place], [address], [facility] 06/12/2023 09:04:14 4 text/html Alopecia areata F/u Where in the scalp it began: l HairlineGeneral duration: ~{{weeks months years 20 + years#}}Predominant symptom:{{asymptomatic it remy sensitive painful o ther-- patches #}}Prior treatment(s): ILK scalp injectionsIn recent months, the problem seems to be:{{minimally changed* improving worsen ing}}- flares up after surgeries, pt has seen massa in the past for injections. pt has had this since 1982. KRISTI HARDING PA-C [address] [place], [address], [facility] 07/26/2023 13:58:28 OBGyn Episode No OBEpisode recorded.
--- OUTSIDE RECORDS SUMMARY | 2024-02-24 16:00 | XMS_ITS | Encounter Summary ---
Author Organization [employer] Address [address] [place] [address] Care Team Providers Care Buffing Wheel Former Automatic Name Role Phone Unavailable Primary Care Provider Unavailabl e Encounter Details Date Type Department Care Team (Late st Contact Info) Description 03/11/2020 Transcribed Document [facility] Family Medicine [address] [place] [address] ProviderUlises MD [facility] [place] [address] Social History Tobacco Use Types [...] Cerner Conversion Note - Historical ProviderMD - 03/11/2020 7:53 AM [facility] Main OR Preop Summary Primary Physician: VICTOR M BANKS DPM-POD Finalized Date/Time: 03/11/20 09:43:09 Pt. Name: GABRIEL CARDONA/Sex: 1960 Female Med Rec #: [id number] Physician: VICTOR M BANKS DPM-POD Financial #: [id number] Pt. Type: O Room/Bed: /2 Admit/Disch: 03/11/20 05:26:00 - Institution: [facility] PreOp Case Times Entry 1 In Preop 03/11/20 05:49:00 Ready for Holding n/a Room Patient Ready for 03/11/20 06:34:00 Surgery Patient Out of Preop 03/11/20 07:26:00 Patient Out of n/a Holding Room Last Modified By: Jessica Rajput RN 03/11/20 09:16:40 [facility] PreOp Case Times Audit 03/11/20 09:16:40 Visitor Services Assistant: [id number] Modifier: [id number] <+> 1 Patient Out of Preop Finalized By: Kelly Landa RN Document Signatures Signed By: Kelly Landa RN 03/11/20 09:43 Electronically signed by Aubrey [facility] Conversion Counter Dish Carrier Cerner at 07/27/2022 1:30 PM CDT documented in this encounter Plan of Treatment Not on file documented as of this encounter Visit Diagnoses Not on filedocumented in this encounter
--- OUTSIDE RECORDS SUMMARY | 2024-02-24 16:00 | XMS_ITS | Encounter Summary ---
Author Organization [employer] Address [address] [place] [address] Care Team Providers Care Assistant Media Planner Name Role Phone Unavailable Primary Care Provider Unavailabl e Encounter Details Date Type Department Care Team (Late st Contact Info) Description 03/11/2020 Transcribed Document [facility] [place] Family Medicine [address] [place] [address] ProviderUlises [place] [address] Social History Tobacco Use Types [...] - Historical ProviderMD - 03/11/2020 7:53 AM MANAGER TRADE [facility] Main OR PostOp Summary Primary Physician: VICTOR M BANKS DPM-POD Finalized Date/Time: 03/11/20 09:47:31 Pt. Name: GABRIEL CARDONA/Sex: 1960 Female Med Rec #: [id number] Physician: VICTOR M ABNKS DPM-POD Financial #: [id number] Pt. Type: O Room/Bed: /2 Admit/Disch: 03/11/20 05:26:00 - Institution: [facility] Main OR PostOp Case Times Entry 1 In PACU II 03/11/20 09:16:00 Ready for PACU II 03/11/20 09:40:00 Discharge Discharge from PACU 03/11/20 09:47:00 II Last Modified By: Jessica Rajput, DOUG 03/11/20 09:47:29 [facility] Main OR PostOp Case Times Audit 03/11/20 09:47:29 Mineral Surveying Technician: [id number] Modifier: [id number] <+> 1 Discharge from PACU II 03/11/20 09:41:28 Mineral Surveying Technician: [id number] Modifier: [id number] 1 <*> Ready for PACU II Discharge 03/11/20 09:41:00 03/11/20 09:41:20 Mineral Surveying Technician: [id number] Modifier: [id number] <+> 1 Ready for PACU II Discharge Finalized By: Jessica Rajput, RN Document Signatures Signed By: Jessica Rajput, DOUG 03/11/20 09:47 Electronically signed by [facility] Conversion Rn Supplemental Cerner at 07/27/2022 1:09 PM CDT documented in this encounter Plan of Treatment Not on file documented as of this encounter Visit Diagnoses Not on filedocumented in this encounter
--- OUTSIDE RECORDS SUMMARY | 2024-02-24 16:00 | XMS_ITS | Encounter Summary ---
Author Organization [employer] Address [address] [place] [address] Care Team Providers Care Manager Line Name Role Phone Unavailable Primary Care Provider Unavailabl e Encounter Details Date Type Department Care Team (Late st Contact Info) Description 03/08/2020 Transcribed Document [facility] [place] Family Medicine [address] [place] [address] ProviderUlises MD [facility] [place] [address] Social History Tobacco Use Types [...] Cerner Conversion Note - Historical ProviderMD - 03/08/2020 11:29 AM DIRECTOR INSTRUCTIONAL MATERIAL PAT Adult Entered On: 03/08/2020 11:32 EST Performed On: 03/08/2020 11:29 EST by Van Kirk Rn Pain Assessment Pain Assessment : Initial assessment Pain Scale Goal : 3 Kelly Landa RN - 03/11/2020 6:22 EST Height and Weight, Clinical Dosing Height Source : Measured Height Entry Format : [place] Height, Feet : 0 ft(Converted to: 0 cm, 0 Inch) Height, Inches : 64 Inch(Converted to: 5 ft 4 Inch, 162.56 cm) Clinical Height : 162.56 cm Weight Source : Standing scale Weight Entry Format : [place] Clinical Dosing Weight : 109.09 kg Weight, Pounds : 240 lb Body Surface Area (BSA) : 2.12 m2 Body Mass Index : 41.3 kg/m2 (>HHI) Hood Body Weight : 54 kg Kelly Landa RN - 03/11/2020 6:22 EST Health Histories Smoking Status : Former smoker, quit more than 30 days ago Smokeless Tobacco Status : Never Kelly Landa RN - 03/11/2020 6:22 EST Social History (As Of: 03/11/2020 06:22:44 EST) Tobacco: Former smoker, quit more than 30 days ago Smoking Status. Last Used: quit over 30 years ago . (Last Updated: 03/08/2020 11:29:12 EST by Van Kirk Rn) Alcohol: Alcohol Use History No. (Last Updated: 04/28/2015 16:37:05 EST by MARCIA TSAI RN) Alcohol Use History No. Use in Last 12 Months: No. (Last Updated: 03/08/2020 11:29:12 EST by Van Kirk Rn) Substance Abuse: Drug Use Hx: No. Use in Last 12 Months: No. (Last Updated: 03/08/2020 11:29:12 EST by Van Kirk Rn) Infectious Disease History Has the patient ever been tested for COVID-19? : Yes, Patient stated results Negative Where was the COVID-19 Testing completed? : [facility] Date of COVID-19 test known? : Yes Date of COVID-19 Test : 03/09/2020 EST Does patient have symptoms of COVID-19? : No COVID19 Screening : No Experiencing Infectious Disease Symptoms : No symptoms Physical contact outside [place] in the last 30 days : No Infectious Disease History : Chicken pox/Shingles Tuberculosis Symptoms : None Kelly Landa RN - 03/11/2020 6:22 EST COVID19 PreProcedure Screening Is this an Emergent or Add on Procedure? : No Date PreProcedure COVID-19 test known? : Yes Date of PreProcedure COVID-19 : 03/09/2020 EST Has patient been isolated since the test : Yes Exposed to COVID19 symptoms since test? : No Kelly Landa RN - 03/11/2020 6:22 EST Anesthesia/Transfusion History Family History of Anesthesia Reaction : No prior transfusion(s) Transfusion History : Prior anesthesia reaction Type of Anesthesia Reaction : Excessive somnolence, Other: low 02 sats Family History of Anesthesia Reaction : None Van Kirk Rn - 03/08/2020 11:29 EST Functional Assessment Functional ADL Evaluation Index EBN Bathing : Independent (2) Dressing : Independent (2) Toileting : Independent (2) Transferring Bed or Chair : Independent (2) Continence : Independent (2) Feeding : Independent (2) Van Kirk Rn - 03/08/2020 11:29 EST ADL Index Score : 12 Van Kirk Rn - 03/08/2020 11:29 EST Advance Directive Patient has Advance Directive *Q : No, patient refuses Advance Directive information Van Kirk Rn - 03/08/2020 11:29 EST Spiritual/Cultural Needs Any Spiritual/Cultural Needs or Requests : No Van Kirk Rn - 03/08/2020 11:29 EST [place] Suicide Severity Rating Scale (C-SSRS) CSSRS Past Month Wish to be : No CSSRS Past Month Suicidal Thoughts : No CSSRS Lifetime Suicide Behavior : No Suicide Severity Rating Score : 0 Suicide Severity Rating : No Additional Care Required at this time Van Kirk Rn - 03/08/2020 11:29 EST Psychosocial History Chronic/Terminal Illness w/Freq Visits : No Do You Have a History of the Following? : Anxiety, Depression Currently in Unsafe Situation : No Van Kirk Rn - 03/08/2020 11:29 EST General Info Preferred Name : Sue Arrived From : Home Mode of Arrival on Unit : Ambulatory Legal Guardian : Spouse Support Person/Patient Service Correspondent : Yes Support Person/Pt Rep Name : Van Cardona - Support Person/Pt Rep Contact Information : [phone] Want Family/Rep/Phys Notified of Admit : Van Rizzo Rn - 03/08/2020 11:29 EST Emergency Contact #1 : Van Cardona Emergency Contact #1 Emergency Contact #1 Relationship : Emergency Contact #2 : none Emergency Contact #2 Phone Number : none Emergency Contact #2 Relationship : none Kelly Landa RN - 03/11/2020 6:05 EST Information Obtained From : Patient Primary Language : Brazilian Preferred Communication Mode : Verbal Communication Barrier : None Executive Administrative Asst Needed : Van Rizzo Rn - 03/08/2020 11:29 EST Austin Scale Austin Sensory Perception : No impairment [place] Moisture : Rarely moist [place] Activity : Walks occasionally Austin Mobility : Slightly limited Austin Nutrition : Adequate Austin Friction and Shear : No apparent problem Austin Score : 20 Van Kirk Rn - 03/08/2020 11:29 EST Sleep Apnea Risk Assmt BMI Greater Than 35 kg/m2 : Yes Neck Circumference Greater Than 40 cm : No STOP-BANG Sleep Apnea Risk Level Score : 4 Kelly Landa RN - 03/11/2020 6:22 EST Hx of Obstructive Sleep Apnea Diagnosis : No Snore Loudly : No Tired, Fatigued, or Sleepy During Day : Yes Observed Stopping Breathing During Sleep : No Have/Are Being Treated for Hypertension : Yes Age over 50 Years Old : Yes Gender Male : No Van Kirk Rn - 03/08/2020 11:29 EST Electronically signed by Leroy Burgos Conversion National Investigative Producer Cerner at 07/27/2022 1:12 PM CDT documented in this encounter Plan of Treatment Not on file documented as of this encounter Visit Diagnoses Not on filedocumented in this encounter
--- OUTSIDE RECORDS SUMMARY | 2024-02-24 16:00 | XMS_ITS | Encounter Summary ---
Author Organization [employer] Address [address] [place] [address] Care Team Providers Care Pinking Machine Operator Name Role Phone Unavailable Primary Care Provider Unavailabl e Encounter Details Date Type Department Care Team (Late st Contact Info) Description 03/11/2020 Transcribed Document [facility] [place] Family Medicine [address] [place] [address] ProviderUlises MD [facility] [address] Social History Tobacco Use Types [...] - Historical ProviderMD - 03/11/2020 7:53 AM DERRICK WORKER [facility] Main OR PACU Summary Primary Physician: VICTOR M BANKS DPM-POD Finalized Date/Time: 03/11/20 09:35:18 Pt. Name: GABRIEL CARDONA/Sex: 1960 Female Med Rec #: [id number] Physician: VICTOR M BANKS DPM-POD Financial #: [id number] Pt. Type: O Room/Bed: /2 Admit/Disch: 03/11/20 05:26:00 - Institution: [facility] Main OR PACU I Case Times Entry 1 In PACU I 03/11/20 08:31:00 Ready for PACU 03/11/20 09:10:00 Discharge Discharge from PACU 03/11/20 09:10:00 I Last Modified By: GREGG SHAH RN 03/11/20 09:35:09 Finalized By: GREGG SHAH RN Document Signatures Signed By: GREGG SHAH RN 03/11/20 09:35 documented in this encounter Plan of Treatment Not on file documented as of this encounter Visit Diagnoses Not on filedocumented in this encounter
--- OUTSIDE RECORDS SUMMARY | 2024-02-24 16:00 | XMS_ITS | Clinical Summary ---
Author Organization [facility] Address [address] [place] [address] Care Team Providers Care Electronic Tester Name Role Phone Ford Rodriguez MD Primary Care Provider [phone] Family History Medical History Relation Name Comments Other cancer Father Hypertension Mother Other cancer Mother Relation Name Status Comments Father Mother Social History Tobacco Use Types Packs/Day Years Used Date Smoking Tobacco: Never Comments Unknown Sex and Gender Information Value [...] Mass Index 34.84 09/25/2013 1:37 PM EDT Plan of Treatment Not on file Care Teams Electronic Tester Relationship Specialty Start Date End Date Ford Rodriguez MD [address] [place] [address] PCP - General 08/20/20
--- OUTSIDE RECORDS SUMMARY | 2024-02-24 16:00 | XMS_ITS | Encounter Summary ---
Author Organization [employer] Address [address] [place] [address] Care Team Providers Care Healthcare Consulting Manager Name Role Phone Unavailable Primary Care Provider Unavailabl e Encounter Details Date Type Department Care Team (Late st Contact Info) Description 03/11/2020 Transcribed Document [facility] [place] [facility] [place] [address] ProviderUlises MD [address] [place] [address] Social History Tobacco Use Types Packs/Day [...] Conversion Note - Historical ProviderMD - 03/11/2020 8:35 AM ELEMENTARY EDUCATION TEACHER Patient: GABRIEL CARDONA Age: 59 Years Sex: Female : 1960 *Operation Neuroma Mortons Excision, Bilateral Anesthesia Type General CELLAROSI-DARRION SUNSHINE MD-ANS (Anesthesiologist of Record) Indication for Surgery painful, chronic neuromas bilateral second interspaces, unresolved with more conservative and mildly invasive procedures *Preoperative Diagnosis NEUROMAS OF CRISTINO FEET *Postoperative Diagnosis SEE DRS POST OP NOTES *Surgeon(s) Primary Surgeon VICTOR M BANKS, DPM-POD (Surgeon/Proceduralist, First) *Estimated Blood Loss negligible *Findings neuromas *Specimen(s) negative Complications negative Date of Service Date/Time of Service SN - Proc - Start Time: 03/11/20 07:53:00 (03/11/20 08:29:33) documented in this encounter Plan of Treatment Not on file documented as of this encounter Visit Diagnoses Not on filedocumented in this encounter
--- OUTSIDE RECORDS SUMMARY | 2024-02-24 16:00 | XMS_ITS | Encounter Summary ---
Author Organization [employer] Address [address] [place] [address] Care Team Providers Care Pouring Crane Operator Name Role Phone Unavailable Primary Care Provider Unavailabl e Encounter Details Date Type Department Care Team (Late st Contact Info) Description 03/09/2020 Historic Encounter [facility] [address] [place] [address] Provider, [facility] Historical Social History Tobacco Use Types Packs/Day Years Used Date Smoking Tobacco: Never Assessed Comments Unknown Sex and Gender Information Value Date Recorded Sex Assigned at Female 10/06/2021 11:59 AM CDT Legal Sex Female 7:14 PM CDT Gender Identity Female 10/06/2021 11:59 AM CDT Sexual Orientation Not on file documented as of this encounter Plan of Treatment Not on file documented as of this encounter Procedures Procedure Name Priority Date/Time Associated Diagnosis Comments CORONAVIRUS 2019 NOVEL ([facility] BKR DATA CONV) Routine 03/09/2020 11:30 AM EST documented in this encounter Results * CORONAVIRUS 2019 NOVEL ([facility] BKR DATA CONV) (03/09/2020 11:30 AM EST) SARS-CoV-2 ([id number]) Negative Negative 03/10/2020 1:19 AM EST [facility] Comment: This assay is for in vitro diagnostic use under FDA Emergency Use Authorization only. Negative results do not preclude infection with the SARS-CoV-2 virus and should not be used as the sole basis of a patient treatment or public health decisions. Negative results must be considered in the context of an individual's recent exposures, history, and presence of clinical signs/symptoms. Follow-up testing should be performed according to the current CDC recommendations. Reference range: Not Detected/Negative Performing Lab: [facility]-BD Max 0 1:19 AM EST [facility] Reason for Testing Surveillance Intake 03/09/2020 6:22 PM EST [facility] First Test Unknown 03/09/2020 6:22 PM [facility] Employed in Healthcare Unknown 03/09/2020 6:22 PM [facility] Symptomatic as defined by CDC No 03/09/2020 6:22 PM [facility] Resident in congregate setting Unknown 03/09/2020 6:22 PM [facility] Unknown 03/09/2020 6:22 PM [facility] Hospitalized No 03/09/2020 6:22 PM [facility] ICU No 03/09/2020 6:22 PM [facility] 03/09/2020 11:3 0 AM EST 03/09/2020 6:21 PM EST us Sleh Historical Provider BODY FLUIDS AND STOOLS ORDERABLES Final Result [facility] [address] [phone] documented in this encounter Visit Diagnoses Not on filedocumented in this encounter
--- OUTSIDE RECORDS SUMMARY | 2024-02-24 16:00 | XMS_ITS | Encounter Summary ---
Author Organization [employer] Address [address] [place] [address] Care Team Providers Care Cheese Pancake Roller Name Role Phone Unavailable Primary Care Provider Unavailabl e Encounter Details Date Type Department Care Team (Late st Contact Info) Description 03/11/2020 Transcribed Document [facility] [place] [facility] [address] ProviderUlises MD [facility] [address] Social History Tobacco Use Types [...] Conversion Note - Ulises ProviderMD - 03/11/2020 7:53 AM 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 Name: GABRIEL CARDONA/Sex: 1960 Female Med Rec #: [id number] Physician: VICTOR M BANKS DPM-POD Financial #: [id number] Pt. 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(Bilateral) Excision(Bilateral) Excision(Bilateral) Other Attendee Superficial Wound Closed By: Last Modified By: RACHEL MURILLO, RACHEL OLRA, RACHEL LORA RN 03/11/20 08:29:34 03/11/20 08:29:34 03/11/20 08:29:34 Entry 4 Entry 5 Entry 6 Case Attendee RACHEL MURILLO, YENI FERNANDEZ, Bg Silva, Boilers And Pressure Vessels Inspector Role Performed Neurological Surgeon, First Neurological Surgeon, Second Scrub, First Time In 03/11/20 07:29:00 03/11/20 07:29:00 03/11/20 07:29:00 Time Out 03/11/20 08:29:00 03/11/20 08:29:00 03/11/20 08:29:00 Procedure Neuroma Mortons Neuroma Mortons Neuroma Mortons Excision(Bilateral) Excision(Bilateral) Excision(Bilateral) Other Attendee Superficial Wound Closed By: Last Modified By: RACHEL MURILLO, RACHEL LORA, RACHEL LORA RN 03/11/20 08:29:34 03/11/20 08:29:34 03/11/20 08:29:34 [facility] IntraOp Case Attendance Audit 03/11/20 08:29:34 Tool And Die Manager: BECCA Modifier: BECCA <+> 1 Time Out <+> 1 Procedure 2 <+> Time In 2 <+> Time Out 2 <*> Procedure Neuroma Mortons Excision(Bilateral) 3 <+> Time In 3 <+> Time Out 3 <*> Procedure Neuroma Mortons Excision(Bilateral) 4 <+> Time In 4 <+> Time Out 4 <*> Procedure Neuroma Mortons Excision(Bilateral) 5 <+> Time In 5 <+> Time Out 5 <*> Procedure Neuroma Mortons Excision(Bilateral) 6 <+> Time In 6 <+> Time Out 6 <*> Procedure Neuroma Mortons Excision(Bilateral) [facility] IntraOp Case Times Entry 1 Patient In Room Time 03/11/20 07:29:00 Out Room Time 03/11/20 08:29:00 Anesthesia Start Time 03/11/20 07:29:00 Stop Time 03/11/20 08:29:00 Surgery / Procedure Times Start Time 03/11/20 07:53:00 Stop Time 03/11/20 08:25:00 Last Modified By: RACHEL MURILLO RN 03/11/20 08:29:09 [facility] IntraOp Case Times Audit 03/11/20 08:29:09 Tool And Die Manager: SMITHML Modifier: SMITHML <+> 1 Out Room Time <+> 1 Stop Time <+> 1 Stop Time 03/11/20 07:53:06 Tool And Die Manager: LIDIAML Modifier: SMITHML <+> 1 Start Time [facility] IntraOp Cautery Entry 1 ESU Identification Cautery Type Monopolar ESU ID Number [id number] ID Type Hospital Number Cautery Settings Cut Setting 30 Coag Setting 30 ESU Grounding Pad Ground Pad Type Adult Grounding Pad Site Right thigh Grounding Pad RACHEL MURILLO RN Applied By Grounding Pad Site Warm, Dry, Intact Skin Condition Before Cautery Site Skin Condition WDL Before Comment Grounding Pad Site Unchanged Skin Condition After Cautery Site Skin Condition WDL After Comment Last Modified By: RACHEL MURILLO RN 03/11/20 07:52:14 [facility] IntraOp Communication Entry 1 Communication To Family/Significant other Comment START Communication By YENI CABALLERO RN Date and Time 03/11/20 07:50:00 Last Modified By: RACHEL MURILLO RN 03/11/20 07:51:00 [facility] IntraOp Counts Verification Entry 1 Procedure Neuroma Mortons Excision(Bilateral) Count Info Count Type Sponge, Sharps Counts Verification Baseline/pre-procedure Sequence Count Results Not Applicable Counts Performed By Count Performed By gB Mendoza, Surgical (Scrub) Mill Platform Supervisor Count Performed By RACHEL MURILLO RN (RN) Last Modified By: RACHEL MURILLO RN 03/11/20 07:47:36 [facility] IntraOp Counts Final Entry 1 Procedure Neuroma Mortons Excision(Bilateral) Final Count Info Count Type Sponge, Sharps Counts Verification Skin Closure/end of Sequence procedure Count Results Correct, surgeon notified Counts Performed By Count Performed By Bg Mendoza, Surgical (Scrub) Mill Platform Supervisor Count Performed By RACHEL MURILLO RN (RN) Last Modified By: RACHEL MURILLO RN 03/11/20 08:19:28 [facility] IntraOp Departure from OR Entry 1 Integumentary Assessment Integumentary WDL with exceptions Assessment WDL Transfer/Handoff Transfer to PACU Phase I Handoff Method Bedside/Face to face, Phone call Post-op Transport Stretcher/Gurney Via Patient Transport CLOTILDE GRANADO NA, Accompanied by RACHEL MURILLO RN Last Modified By: RACHEL MURILLO RN 03/11/20 07:52:37 [facility] IntraOp Dressing and Packing Entry 1 Type Dressing Location [place] Wound Dressing Item 4x4's, Xeroform, Kerlix/Toan, Tavo Applied By VICTOR M BANKS, DPAnkita-POD Last Modified By: RACHEL MURILLO RN 03/11/20 08:07:18 [facility] IntraOp Fire Risk Assessment Entry 1 Fire Info Surgical Site or 0- No Incision Above the Xyphoid Open O2 Source 0- No (Mask or Cannula) Available Ignition 1- Yes (ESU, Laser, Light Source) Fire Risk 1 Assessment Score Fire Score Fire Risk Yes Assessment Complete Fire Risk RACHEL MURILLO RN Assessment Verified By Fire Risk 03/11/20 07:48:00 Assessment Verified Date/Time Fire Risk Standard Fire Yes Safety Precautions Followed Last Modified By: RACHEL MURILLO RN 03/11/20 07:48:18 [facility] IntraOp General Case Forms Builder 1 Case Information OR OR 04 [facility] Case Level 1 Room Verified Yes Wound Class I - Clean Specialty SN Podiatry Anesthesia Type General ASA Class 2 Diagnosis Preop Diagnosis NEUROMAS OF [place] Postop Same As Preop No Postop Diagnosis SEE DONYA POST OP NOTES Last Modified By: RACHEL MURILLO RN 03/11/20 07:48:54 [facility] IntraOp Intraoperative Assessment Entry 1 Handoff Method Bedside/Face to face, Online nursing summary Valid History / Yes Physical in Chart Preoperative Yes Checklist Reviewed/Evaluated Allergies Reviewed Yes Patient is Latex No Sensitive Isolation Not applicable Precautions Noted Level of WDL Consciousness (WDL = Alert, Oriented to Person, Place, and Time) Skin Assessment Yes Verified Present Upon IVs Arrival to OR Last Modified By: RACHEL MURILLO RN 03/11/20 07:49:01 [facility] IntraOp Intraoperative Equipment Entry 1 Type Equipment Equipment Equipment Meghana Suction System ID Number [id number] Setting HIGH Intraop Monitoring Antiembolic Devices Scopes Photo/Video Documentation Last Modified By: RACHEL MURILLO RN 03/11/20 07:52:58 [facility] IntraOp Medication Admin Entry 1 Entry 2 Medication/Irrigant lidocaine 1% 50ml vial Bupivicaine/Marcaine - [id number] 0.5% 30ml - [id number] Combo Med List 1 - Combo Med 1 - Combo Med Time Administered Route of LOCAL LOCAL Administration Dose Dose 10 10 Unit of Measure ml million units Volume Administered By VICTOR M BANKS, DPM-POD VICTOR M BANKS DPM-POD Procedure Irrigation Irrigant Volume In Irrigant Volume Out Last Modified By: RACHEL MURILLO RN SMITH, MYRIAH L., RN 03/11/20 07:54:12 03/11/20 07:54:12 [facility] IntraOp Patient Positioning Entry 1 Procedure Neuroma Mortons Excision(Bilateral) Body Position Supine Left Arm Position Tucked and padded at side Right Arm Position Tucked and padded at side Left Leg Position Elevated Right Leg Position Elevated Feet Uncrossed Yes Pressure Points Yes Checked Positioning Devices Foot Rest, Pillows, Pad, Arm, Safety Strap, Thighs Positioned By CLOTILDE GRANADO NA, RACHEL MURILLO RN, VICTOR M BANKS, DPM-POD, YENI CABALLERO RN Position Verified Positioning Yes Verified by Anesthesia Positioning Yes Verified by Surgeon Last Modified By: RACHEL MURILLO RN 03/11/20 07:53:51 [facility] IntraOp Sign In Entry 1 Patient, Site, Yes Procedure Identified Surgical Consent Yes Confirmed Relevant Surgical Yes Documents Available Surgical Site Yes Marked by person performing procedure Anesthesia Machine Yes Check Completed Medication Checks Yes Completed Allergies Yes Airway Difficult Yes Airway/Aspiration Risk Difficult Yes Airway/Aspiration Intervention Equipment Available Blood Loss Risk Yes Blood Loss Yes Intervention Equipment Prepared and Ready Blood Identifiers Not applicable Verified Per Policy Hypothermia Risk Yes Warming Measures Yes Taken Last Modified By: RACHEL MURILLO RN 03/11/20 07:47:47 [facility] IntraOp Sign Out Entry 1 RN Confirmation Surgical Yes Procedure(s) Identified Instrument, Sponge Yes and Sharps Counts Correct/Documented Equipment Problems N/A Documented Specimen Labeled N/A Correctly Urinary Catheter N/A Documented in IView Zayas Patient Yes Recovery Concerns Reviewed with Anesthesia Provider, Surgeon and RN Zayas Patient Yes Management Concerns Reviewed with Anesthesia Provider, Surgeon and RN Safety Checklist Yes Elements Complete? RN Sign Out RACHEL MURILLO RN Signature RN Sign Out 03/11/20 08:29:00 Signature Date/Time Plan of Care Outcome - Fire Risk OUTCOME STATEMENT: Goal met Patient is free from injury related to surgical fire Plan of Care Outcome - Pt Positioning OUTCOME STATEMENT: Goal met Absence of signs and symptoms of positioning injury. Plan of Care Outcome - Skin Prep OUTCOME STATEMENT: Goal met Intraoperative care is consistent with measures to prevent infection Plan of Care Outcome - Xray/Images OUTCOME STATEMENT: N/A Absence of observable signs or symptoms of radiation injury Plan of Care Outcome - Counts OUTCOME STATEMENT: Goal met Absence of signs and symptoms of injury related to extraneous objects Last Modified By: RACHEL MURILLO RN 03/11/20 08:29:24 [facility] IntraOp Skin Prep Entry 1 Procedure Neuroma Mortons Excision(Bilateral) Prescribed Yes Pre-Surgical Prep Completed Prep Area BILATERAL FEET Intraop Prep Integumentary WDL with patient Assessment WDL specific variances Prep Agents Chloraprep Prep by RACHEL MURILLO RN Hair Removal Methods No hair removal performed Last Modified By: RACHEL MURILLO RN 03/11/20 07:48:09 [facility] IntraOp Surgical Procedures Entry 1 Procedure Neuroma Mortons Excision Modifiers Bilateral Additional (EXCISION NEUROMA Procedure BILATERAL SECOND Description INTERSPACER) Primary Procedure Yes Primary Surgeon VICTOR M BANKS DPM-POD Start 03/11/20 07:53:00 Stop 03/11/20 08:25:00 Anesthesia Type General Specialty SN Podiatry Wound Class I - Clean Last Modified By: RACHEL MURILLO RN 03/11/20 08:29:33 [facility] IntraOP Time Out Entry 1 Procedure to be Neuroma Mortons Performed Excision(Bilateral) Time Out Time Out Pause Time 03/11/20 07:53:00 All activity Yes suspended (unless life threatening emergency) Team Verbally Correct patient Confirms Information identity, Correct side and site are marked, Consent form is present and accurate, Agreement on the procedure to be done, Correct patient position, Relevant images/results properly labeled/appropriately displayed, Confirm antibiotics have been administered, Confirm the skin prep has dried, Performed in location of procedure after prepped/draped Antibiotic Yes Prophylaxis Administered Or In Progress Within the Last 60 Minutes Beta Pepe N/A Administered Venous N/A Thromboembolism Prophylaxis Required Anticipated Critical Events Surgeon None expected Anesthesia Provider None expected Nursing Assures Sterility of instruments Essential Imaging N/A Labeled and Displayed Last Modified By: RACHEL MURILLO RN 03/11/20 07:54:39 [facility] IntraOp Tourniquet Entry 1 Entry 2 Type Pneumatic Pneumatic Serial/Unit Number [id number] Setting 250 250 mmHg Pheumatic Yes Yes Tourniquet Checked Per Protocol Size 18 inches 18 inches Placement Ankle, right Ankle, left Tourniquet Comment Skin Protection - Yes Yes Padded Under Cuff Applied By VICTOR M BANKS, DPM-POD VICTOR M BANKS, DPM-POD Removed By VICTOR M BANKS, DPM-POD VICTOR M BANKS, DPM-POD Times Start Time 03/11/20 07:49:00 03/11/20 07:50:00 Stop Time 03/11/20 08:24:00 03/11/20 08:25:00 Total Time calculated manually (Mins) Last Modified By: RACHEL MURILLO RN SMITH, MYRIAH L., RN 03/11/20 08:25:38 03/11/20 08:25:38 [facility] IntraOp Tourniquet Audit 03/11/20 08:25:38 Tool And Die Manager: BECCA Modifier: BECCA <+> 1 Stop Time <+> 2 Stop Time Case Comments <None> Finalized By: АЛЕКСАНДР MACIEL Document Signatures Signed By: RACHEL MURILLO RN 03/11/20 08:29 АЛЕКСАНДР AMCIEL 03/14/20 15:10 Unfinalized History Date/Time Username Reason for Unfinalizing Freetext Reason for Unfinalizing 03/14/20 15:10 WATTSDR Correct Billing documented in this encounter Plan of Treatment Not on file documented as of this encounter Visit Diagnoses Not on filedocumented in this encounter
--- OUTSIDE RECORDS SUMMARY | 2024-02-24 16:00 | XMS_ITS | Encounter Summary ---
Author Organization [employer] Address [address] [place] [address] Care Team Providers Care Leisure Travel Agent Name Role Phone Unavailable Primary Care Provider Unavailabl e Encounter Details Date Type Department Care Team (Late st Contact Info) Description 03/11/2020 Transcribed Document [facility] [place] [facility] [place] [address] ProviderUlises MD [facility] [place] [address] Social History Tobacco Use [...] Conversion Note - Ulises ProviderMD - 03/11/2020 6:20 AM DEPARTMENT COORDINATOR Patient: GABRIEL CARDONA Age: 59 years Sex: Female : 1960 Associated Diagnoses: None Author: HAROON REEVES APRN Chief Complaint demetrio feet neuroma Review of Systems ROS reviewed as documented in chart no change since last seen by surgeon Health Status Allergies: Allergic Reactions (Selected) No Known Allergies, Allergies (1) Active Reaction No Known Allergies None Documented Current medications: (Selected) Inpatient Medications Ordered Ancef: 2 Gram, 50 mL, 100 mL/Hr, IV Piggyback, PREOP Lactated Ringers Injection intravenous solution 1,000 mL: 20 mL/Hr, IntraVENous lidocaine 1% preservative-free injectable solution: 0.5 mL, IntraDermal, 1-Time Documented Medications Documented CeleBREX 200 mg oral capsule: 1 Cap, Oral, BID, 90 Cap, 0 Refill(s) Cymbalta: 60 mg, Oral, BID, 0 Refill(s) Flonase: 1 Icard, Nostrils Both, At Bedtime, 0 Refill(s) Singulair 10 mg oral tablet: 1 Tab, Oral, QPM, 90 Tab, 0 Refill(s) albuterol-ipratropium 103 mcg-18 mcg/inh inhalation aerosol: Inhalation, PRN: Shortness of Breath, 0 Refill(s) fexofenadine 180 mg oral tablet: 1 Tab, Oral, Daily, 0 Refill(s) gabapentin 600 mg oral tablet: 2 Tab, Oral, TID, 0 Refill(s) losartan 25 mg oral tablet: 1 Tab, Oral, Daily, 0 Refill(s) pantoprazole 40 mg oral delayed release tablet: 1 Tab, Oral, BID, 0 Refill(s) rOPINIRole 1 mg oral tablet: 1 Tab, Oral, TID, 0 Refill(s) traMADol: 50 mg, Oral, BID, 0 Refill(s), Home Medications (11) Active albuterol-ipratropium 103 mcg-18 mcg/inh inhalation aerosol , PRN, Inhalation CeleBREX 200 mg oral capsule 200 mg = 1 Cap, Oral, BID Cymbalta 60 mg, Oral, BID fexofenadine 180 mg oral tablet 180 mg = 1 Tab, Oral, Daily Flonase 1 Icard, Nostrils Both, At Bedtime gabapentin 600 mg oral tablet 1,200 mg = 2 Tab, Oral, TID losartan 25 mg oral tablet 25 mg = 1 Tab, Oral, Daily pantoprazole 40 mg oral delayed release tablet 40 mg = 1 Tab, Oral, BID rOPINIRole 1 mg oral tablet 1 mg = 1 Tab, Oral, TID Singulair 10 mg oral tablet 10 mg = 1 Tab, Oral, QPM traMADol 50 mg, Oral, BID , Medications (3) Active Scheduled: (2) ceFAZolin/D5w 2 Gram 50 mL, IV Piggyback, PREOP lidocaine 1% *PF* inj 2 mL 0.5 mL, IntraDermal, 1-Time Continuous: (1) lactated ringers 1,000 mL 1,000 mL, IntraVENous, 20 mL/Hr PRN: (0) Problem list: All Problems Thyroid disease / SNOMED CT 381900790 / Confirmed Restless legs syndrome / SNOMED CT 53997804 / Confirmed Migraine / SNOMED CT 32859076 / Confirmed Irritable bowel syndrome / SNOMED CT 26440673 / Confirmed Edis's thyroiditis / SNOMED CT 47715457 / Confirmed Foot pain, bilateral / SNOMED CT 771467513 / Confirmed Fibromyalgia / SNOMED CT 42179448 / Confirmed degenerative disc disease / Confirmed Carpal tunnel syndrome / SNOMED CT 30242174 / Confirmed bilateral Back pain / SNOMED CT 834058170 / Confirmed At risk for sleep apnea / IMO 10091931 / Confirmed Asthma / SNOMED CT 591741475 / Confirmed Arthritis / SNOMED CT 0286260 / Confirmed alopecia areooca / Confirmed, Active Problems (14) alopecia areooca Arthritis Asthma At risk for sleep apnea Back pain Carpal tunnel syndrome degenerative disc disease Fibromyalgia Foot pain, bilateral Edis's thyroiditis Irritable bowel syndrome Migraine Restless legs syndrome Thyroid disease Histories Past Medical History: No active or resolved past medical history items have been selected or recorded. Family History: No family history items have been selected or recorded. Procedure history: keloid removal neck. bilateral carpal tunnel. c section x3. hysterectomy. gallbladder removed. appendectomy. nose reset. gastric sleeve 2013. spinal cord tumor removal. toe surgery. Comments: 03/08/2020 11:28 Van Olguin Rn right big toe knee surgery. Comments: 03/08/2020 11:28 Van Olguin Rn left Physical Examination VS/Measurements Vital Signs/Vital Measures 03/11/2020 6:00 EST Blood Pressure Location Arm, right upper Blood Pressure Source Non-Invasive BP Device Blood Pressure Position Sitting Systolic Blood Pressure 162 mmHg HI Diastolic Blood Pressure 85 mmHg Temperature Source Temporal artery scanning Temperature Mode Fahrenheit Temperature, Fahrenheit 98.0 Deg F Clinical Temperature, C 36.7 Deg C Heart Rate Monitored 95 bpm Respiratory Rate 20 Breaths/Min Oxygen Saturation 98 % Oxygen Therapy Mode Room air , Vitals Signs (last 24 hrs) Last Charted Minimum Maximum Temp 98.0 (MAR 11 06:00) 98.0 (MAR 11 06:00) 98.0 (MAR 11 06:00) Mon HR 95 (MAR 11 06:00) 95 (MAR 11 06:00) 95 (MAR 11 06:00) Resp Rate 20 (MAR 11 06:00) 20 (MAR 11 06:00) 20 (MAR 11 06:00) SBP H 162 (MAR 11 06:00) H 162 (MAR 11 06:00) H 162 (MAR 11 06:00) DBP 85 (MAR 11 06:00) 85 (MAR 11 06:00) 85 (MAR 11 06:00) SpO2 98 (MAR 11:00) 98 (MAR 11 06:00) 98 (MAR 11:) General: Alert and oriented, No acute distress, morbid obesity. Eye: Pupils are equal, round and reactive to light, Extraocular movements are intact, glasses. HENT: Normocephalic, Normal hearing. Neck: Supple, Non-tender. Respiratory: Lungs are clear to auscultation, Respirations are non-labored. Cardiovascular: Normal rate, Regular rhythm, No murmur, No gallop, No edema. Gastrointestinal: Soft, Non-tender. Genitourinary: No costovertebral angle tenderness. Lymphatics: No lymphadenopathy neck, axilla, groin. Musculoskeletal: demetrio LE weakness, painful ROM demetrio feet. Integumentary: Warm, Dry, healing incision R palm of hand POA. Neurologic: Alert, Oriented. Psychiatric: Cooperative, Appropriate mood & affect. Review / Management Results review: No qualifying data available. Impression and Plan Condition: Stable. documented in this encounter Plan of Treatment Not on file documented as of this encounter Visit Diagnoses Not on filedocumented in this encounter
[2024-02-24 16:31] VITALS: BP 111/66; PULSE 88; RESP 18; TEMP 36.8
== END 2024-02-24 16:34 | disposition home or self-care (01) ==
PROVIDERS: Emergency Provider Nurse Practitioner Family; PCP Family Medicine
DX: M79.642 Pain in left hand (principal)
CPT/HCPCS: 73130; 99213; G0381

== ENCOUNTER 2024-04-11 08:30 | Day surgery (SDC) | payer MEDICARE, BC, SELFPAY ==
[2024-04-11 08:41] VITALS: BP 138/75; PULSE 96; RESP 16; TEMP 36.6; O2SAT 98; BMI 36.8; BMI 368997.4
--- NOTE | 2024-04-11 09:10 | P.PCN_ITS ---
Procedure Date: 04/11/24 Time: 09:25 Anesthesiologist:: Cheyanne Lee APRN Complications:: None Pre-procedure Diagnosis:: Degenerative disc disease of lumbar spine with lumbar radiculopathy symptoms Post-procedure Diagnosis:: Same Indications for Procedure:: Patient is a pleasant 63-year-old female who presents today for intrathecal refill and reprogram. Today she rates her pain a 4 out of 10. She denies any new trauma or injury. Patient is currently managed with morphine 2 mg/mL with a daily dose of 0.4685 mg/day. She denies any side effects from this medication. Patient is prescribed gabapentin from an outside provider and compounded cream from our office. Her Obed has been reviewed and is appropriate. Physical Exam: General: Alert and oriented x3, no acute distress, pleasant and cooperative Lungs: Respirations even and unlabored, symmetrical chest expansion Eyes: PERRL Musculoskeletal: Flexion and extension of lumbar [spine] somewhat guarded secondary to pain, [antalgic gait noted] Neurological: Speech clear, no gross sensory deficit Procedure Details:: Informed consent was obtained and the risk and benefits of the procedure were explained to the patient. The patient had noninvasive monitoring placed includi ng noninvasive blood pressure cuff and pulse oximeter. Patient's pump was interrogated. The area over the pump was cleansed with chlorhexidine as a cleansing solution. In sterile fashion the pump was accessed with a 22-gauge needle. Approximately 6.9 mls of the pump solution was removed and discarded appropriately. The pump was then refilled with 20 mL's of morphine 2 mg/mL. The needle was withdrawn and a bandage was placed over the puncture site. The infusion rate was reprogrammed and continued at 0.4685 mg/day. The patient tolerated well with no complication. Plan and Disposition:: Patient tolerated her intrathecal refill and reprogram with no complications and was discharged neurologically intact. Patient will return to clinic on or before her next refill date. We will see the patient back in the clinic at the next intrathecal refill. Patient has been instructed to contact the clinic with any concerns before the next appointment. Dr. Ramos has reviewed this note and agrees with this plan of care. This note was dictated using voice recognition software and make contain errors or omissions. -- It Is medically necessary for this patient to continue to have their intrathecal pump refilled at regular intervals. This patient had an intrathecal pain pump implanted after meeting criteria of chronic intractable pain for greater than 3 months and failing conservative treatments. Patient has committed and been compliant to the treatment plan and all planned follow up care. Since implantation of the intrathecal pain pump, the patient has had decreased pain and been more functional. Oral medications have been reduced including intake of oral opioids. Patient continues to do well with intrathecal therapy with decrease in pain symptoms and increase in functional status. Stopping intrathecal medications can lead to life threatening withdrawal, seizures, cardiac arrest, severe pain, and possible . Pumps that are not refilled at regular intervals can be damages and cause and need for replacement. We continually titrate dose and concentration to optimize pain relief and function. We are limited in concentration for certain drugs to safely deliver medications through the pump and stay within the recommendations from the Polyanalgesic Consensus Committee Guidelines. Depending on dose and concentration these pumps may need to be refilled sooner than 3 months as we titrate. A UDS is needed to verify patient's compliance with our office pain contract. This is ordered based off specific treatments related to chronic pain with the potential to abuse certain medications.
[2024-04-11 09:12] VITALS: BP 122/85; PULSE 96; RESP 18; O2SAT 97
[2024-04-11 09:16] VITALS: BP 122/85; PULSE 96; RESP 18; O2SAT 97
[2024-04-11 09:32] VITALS: BP 124/79; PULSE 92; RESP 16; O2SAT 97
== END 2024-04-11 09:32 | disposition home or self-care (01) ==
PROVIDERS: PCP Family Medicine; Visit Provider Nurse Practitioner Family
DX: M51.16 Intervertebral disc disorders with radiculopathy, lumbar region (principal)
CPT/HCPCS: 62370; 99212; G0463

== ENCOUNTER 2024-05-01 10:00 | Outpatient (RCR) | payer MEDICARE, BC, SELFPAY | END 2024-05-01 23:59 | disposition home or self-care (01) | LOC: PT 10:00 | PROVIDERS: Visit Provider Family Medicine Sports Medicine | DX: M16.11 Unilateral primary osteoarthritis, right hip (principal) | CPT/HCPCS: 97110; 97163 ==

== ENCOUNTER 2024-05-09 15:00 | Outpatient (RCR) | payer MEDICARE, BC, SELFPAY | END 2024-05-09 23:59 | disposition home or self-care (01) | LOC: OT 15:00 | PROVIDERS: Visit Provider Orthopaedic Surgery Sports Medicine | DX: M75.122 Complete rotator cuff tear or rupture of left shoulder, not specified as traumatic (principal) | CPT/HCPCS: 97014; 97035; 97110; 97140; 97165; 97530; G0283 ==

== ENCOUNTER 2024-05-19 13:00 | Outpatient (RCR) | payer MEDICARE, BC, SELFPAY | END 2024-05-19 23:59 | disposition home or self-care (01) | LOC: PT 13:00 | PROVIDERS: Visit Provider Family Medicine Sports Medicine | DX: M16.11 Unilateral primary osteoarthritis, right hip (principal) | CPT/HCPCS: 97110; 97530 ==

== ENCOUNTER 2024-05-19 14:00 | Outpatient (RCR) | payer MEDICARE, BC, SELFPAY | END 2024-05-19 23:59 | disposition home or self-care (01) | LOC: OT 14:00 | PROVIDERS: Visit Provider Orthopaedic Surgery Sports Medicine | DX: M75.122 Complete rotator cuff tear or rupture of left shoulder, not specified as traumatic (principal) | CPT/HCPCS: 97014; 97110; 97140; 97530; G0283 ==

== ENCOUNTER 2024-06-05 09:44 | Outpatient (CLI) | payer MEDICARE, BC, SELFPAY ==
--- NOTE | 2024-06-05 09:52 | MR_ITS ---
FINAL REPORT CLINICAL HISTORY: RT HIP OSTEOARTHRITIS. right hip pain COMPARISON: None FINDINGS: MR RIGHT HIP TECHNIQUE: Multiplanar MR without gadolinium enhancement. FINDINGS: ARTICULAR CARTILAGE: There is mild diffuse thinning of the articular cartilage, without evidence of an osteochondral defect. LABRUM: No focal tear MARROW SIGNAL: Normal. JOINT FLUID: A small effusion is present without evidence of a loose body. ADJACENT SOFT TISSUES: Unremarkable. IMPRESSION: Mild degenerative change without acute osseous abnormality or obvious labral tear. Reviewed, Interpreted and Dictated by Basil Moe MD Transcribed by Halina Basilio Authenticated and [facility]
--- NOTE | 2024-06-05 09:55 | XR_ITS ---
FINAL REPORT CLINICAL HISTORY: CHECK POSITION OF IMPLANTED DEVICE FOR MRI COMPARISON: None FINDINGS: Two views of the abdomen demonstrate nonspecific bowel gas pattern. There are mild degenerative changes of the spine. The upper portion of the implanted device is oriented along the volar aspect relative to the Z axis up to 26 degrees. IMPRESSION: Implanted device in appropriate position for MRI scanning. Reviewed, Interpreted and Dictated by Basil Moe MD Transcribed by Maura Cruz Authenticated and [facility]
== END 2024-06-05 23:59 | disposition home or self-care (01) ==
LOC: RAD 09:45
PROVIDERS: PCP Family Medicine; Visit Provider Family Medicine Sports Medicine
DX: Z01.818 Encounter for other preprocedural examination (principal); M16.11 Unilateral primary osteoarthritis, right hip
CPT/HCPCS: 73721; 74019

== ENCOUNTER 2024-06-06 10:13 | Day surgery (SDC) | payer MEDICARE, BC, SELFPAY ==
[2024-06-06 10:36] VITALS: BP 106/72; PULSE 96; RESP 18; O2SAT 96
[2024-06-06 10:37] VITALS: BP 103/62; BP 106/72; PULSE 94; PULSE 97; RESP 16; RESP 18; TEMP 36.6; O2SAT 96; O2SAT 97; BMI 36.3
--- NOTE | 2024-06-06 10:37 | P.PCN_ITS ---
Procedure Date: 05/30/24 Time: 10:37 Anesthesiologist:: Cheyanne Lee APRN Complications:: None Pre-procedure Diagnosis:: Degenerative disc disease of lumbar spine with lumbar radiculopathy symptoms Post-procedure Diagnosis:: Same Indications for Procedure:: Patient is a pleasant 64-year-old female who presents today for intrathecal refill and reprogram. She rates her pain a 4 out of 10. She denies any new trauma or injury. Patient is currently managed with morphine 2 mg/mL with a da dian dose of 0.4685 mg/day and is also prescribed gabapentin from an outside provider. Patient does get compounded cream from eyes her Obed has been reviewed and is appropriate. Physical Exam: General: Alert and oriented x3, no acute distress, pleasant and cooperative Lungs: Respirations even and unlabored, symmetrical chest expansion Eyes: PERRL Musculoskeletal: Flexion and extension of lumbar [spine] somewhat guarded secondary to pain, [antalgic gait noted] Neurological: Speech clear, no gross sensory deficit Procedure Details:: Informed consent was obtained and the risk and benefits of the procedure were explained to the patient. The patient had noninvasive monitoring placed including noninvasive blood pressure cuff and pulse oximeter. Patient's pump was interrogated. The area over the pump was cleansed with chlorhexidine as a cleansing solution. In sterile fashion the pump was accessed with a 22-gauge needle. Approximately 6.5 mls of the pump solution was removed and discarded appropriately. The pump was then refilled with 20 mL's of morphine 2 mg/mL. The needle was withdrawn and a bandage was placed over the puncture site. The infusion rate was reprogrammed and continued at her current right. The patient tolerated well with no complication. Plan and Disposition:: Patient tolerated the procedure well with no complications and was discharged neurologically intact. Patient will return to clinic on or before their next intrathecal refill date. We will see the patient back in the clinic at the next intrathecal refill. Patient has been instructed to contact the clinic with any concerns before the next appointment. Dr. Ramos has reviewed this note and agrees with this plan of care. This note was dictated using voice recognition software and make contain errors or omissions. -- It Is medically necessary for this patient to continue to have their intrathecal pump refilled at regular intervals. This patient had an intrathecal pain pump implanted after meeting criteria of chronic intractable pain for greater than 3 months and failing conservative treatments. Patient has committed and been compliant to the treatment plan and all planned follow up care. Since implantation of the intrathecal pain pump, the patient has had decreased pain and been more functional. Oral medications have been reduced including intake of oral opioids. Patient continues to do well with intrathecal therapy with decrease in pain symptoms and increase in functional status. Stopping intrathecal medications can lead to life threatening withdrawal, seizures, cardiac arrest, severe pain, and possible . Pumps that are not refilled at regular intervals can be damages and cause and need for replacement. We continually titrate dose and concentration to optimize pain relief and function. We are limited in concentration for certain drugs to safely deliver medications through the pump and stay within the recommendations from the Polyanalgesic Consensus Committee Guidelines. Depending on dose and concentration these pumps may need to be refilled sooner than 3 months as we titrate. A UDS is needed to verify patient's compliance with our office pain contract. This is ordered based off specific treatments related to chronic pain with the potential to abuse certain medications.
[2024-06-06 10:52] VITALS: BP 121/68; PULSE 98; RESP 16; O2SAT 96
== END 2024-06-06 10:52 | disposition home or self-care (01) ==
PROVIDERS: PCP Family Medicine; Visit Provider Nurse Practitioner Family
DX: M51.16 Intervertebral disc disorders with radiculopathy, lumbar region (principal)
CPT/HCPCS: 62370

== ENCOUNTER 2024-06-25 08:00 | Outpatient (RCR) | payer MEDICARE, BC, SELFPAY | END 2024-06-25 23:59 | disposition home or self-care (01) | LOC: PT 08:00 | PROVIDERS: PCP Family Medicine; Visit Provider Physician Assistant | DX: M54.12 Radiculopathy, cervical region (principal) | CPT/HCPCS: 97110; 97140; 97163; 97530 ==

== ENCOUNTER 2024-07-11 14:30 | Outpatient (POV) | payer MEDICARE, BC, SELFPAY ==
[2024-07-11 15:03] VITALS: BP 120/68; PULSE 81; RESP 14; O2SAT 98; BMI 36.8
--- NOTE | 2024-07-11 15:07 | EXP.PAIN.PRO ---
Procedure Date: 07/11/24 Time: 14:56 Anesthesiologist:: Cheyanne Lee APRN Complications:: None Pre-procedure Diagnosis:: Degenerative disc disease of lumbar spine with lumbar radiculopathy symptoms Post-procedure Diagnosis:: Same Indications for Procedure:: patient is a pleasant 64-year-old female who presents today for intrathecal adjustment and reprogram. Today she rates her pain a 5 out of 10. She denies any new injury or trauma. Patient does state that she has been getting outside more to do more activities running currently is aggravating her pain symptoms. Patient is currently managed with morphine 2 mg/mL with a daily dose of 0.4685 mg/day. She denies any side effects from this medication. Her Obed has been reviewed and is appropriate. And that is causing additional pain as well as the increased Physical Exam: General: Alert and oriented x3, no acute distress, pleasant and cooperative Lungs: Respirations even and unlabored, symmetrical chest expansion Eyes: PERRL Musculoskeletal: Flexion and extension of lumbar [spine] somewhat guarded secondary to pain, [antalgic gait noted] Neurological: Speech clear, no gross sensory deficit Procedure Details:: Informed consent was obtained and the risk and benefits of the procedure were explained to the patient. Patient did have noninvasive monitoring was placed including noninvasive blood pressure cuff and pulse oximeter. Patient's pump was interrogated and was reprogrammed to morphine 0.5625 mg/day. The patient tolerated the procedure well with no complications. Plan and Disposition:: Patient tolerated the procedure well with no complications and was discharged neurologically intact. Patient will return to clinic on or before their next intrathecal refill date. We will see the patient back in the clinic at the next intrathecal refill. Patient has been instructed to contact the clinic with any concerns before the next appointment. Dr. Ramos has reviewed this note and agrees with this plan of care. This note was dictated using voice recognition software and make contain errors or omissions. -- It Is medically necessary for this patient to continue to have their intrathecal pump refilled at regular intervals. This patient had an intrathecal pain pump implanted after meeting criteria of chronic intractable pain for greater than 3 months and failing conservative treatments. Patient has committed and been compliant to the treatment plan and all planned follow up care. Since implantation of the intrathecal pain pump, the patient has had decreased pain and been more functional. Oral medications have been reduced including intake of oral opioids. Patient continues to do well with intrathecal therapy with decrease in pain symptoms and increase in functional status. Stopping intrathecal medications can lead to life threatening withdrawal, seizures, cardiac arrest, severe pain, and possible . Pumps that are not refilled at regular intervals can be damages and cause and need for replacement. We continually titrate dose and concentration to optimize pain relief and function. We are limited in concentration for certain drugs to safely deliver medications through the pump and stay within the recommendations from the Polyanalgesic Consensus Committee Guidelines. Depending on dose and concentration these pumps may need to be refilled sooner than 3 months as we titrate. A UDS is needed to verify patient's compliance with our office pain contract. This is ordered based off specific treatments related to chronic pain with the potential to abuse certain medications.
== END 2024-07-11 23:59 | disposition home or self-care (01) ==
PROVIDERS: PCP Family Medicine; Visit Provider Nurse Practitioner Family
DX: M51.16 Intervertebral disc disorders with radiculopathy, lumbar region (principal)
CPT/HCPCS: 62368; 99212; 99213; G0463

== ENCOUNTER 2024-07-25 13:58 | Day surgery (SDC) | payer MEDICARE, BC, SELFPAY ==
[2024-07-25 14:07] VITALS: BP 101/66; PULSE 106; RESP 16; TEMP 36.8; O2SAT 97; BMI 36.3
[2024-07-25 15:03] VITALS: BP 138/52; PULSE 65; RESP 18; O2SAT 97
[2024-07-25 15:04] VITALS: BP 138/52; PULSE 65; RESP 18; O2SAT 97
[2024-07-25 15:16] VITALS: BP 112/84; PULSE 98; RESP 16; O2SAT 96
--- NOTE | 2024-07-25 15:59 | EXP.PAIN.PRO ---
Procedure Date: 07/25/24 Time: 15:59 Anesthesiologist:: Zay Ramos MD Complications:: None Pre-procedure Diagnosis:: Degenerative disease of lumbar spine with lumbar radiculopathy symptoms Post-procedure Diagnosis:: Same Indications for Procedure:: This patient is a pleasant 64-year-old white female who we are treating for low back pain with lumbar radicular symptoms. She has increasing pain in her back radiating down both legs. She is doing well with her intrathecal morphine pain pump. She does have antalgic gait. Motor strength of lower extremities is 5/5. There is no gross sensory deficit. Obed and drug screen are all appropriate. We we will refill her pump today. Will continue her 0.5625 mg/day. Procedure Details:: Informed consent was obtained and the risks and benefits of the procedure was explained to the patient. The patient was taken to the procedure room. The pump was interrogated. The area over the pump was prepped using ChloraPrep. The pump was accessed with a 22-gauge needle. Approximately 7 mL's of the intrathecal solution was withdrawn and discarded. The pump was then refilled with 20 mL's of intrathecal morphine 2 mg/mL. The pump was interrogated and the infusion was continued 0.5625 mg/day. The patient tolerated the procedure well with no complication. Plan and Disposition:: Will follow-up with this patient and her next pump refill. This will be on her before September 17, 2024.
== END 2024-07-25 15:16 | disposition home or self-care (01) ==
LOC: SC.PAIN 14:00
PROVIDERS: PCP Family Medicine; Visit Provider Anesthesiology
DX: M51.16 Intervertebral disc disorders with radiculopathy, lumbar region (principal)
CPT/HCPCS: 95991

== ENCOUNTER 2024-08-21 11:00 | Outpatient (RCR) | payer MEDICARE, BC, SELFPAY | END 2024-08-21 23:59 | disposition home or self-care (01) | LOC: PT 11:00 | PROVIDERS: PCP Family Medicine; Visit Provider Orthopaedic Surgery Sports Medicine | DX: M54.12 Radiculopathy, cervical region (principal) | CPT/HCPCS: 97012; 97110; 97163; 97535 ==

== ENCOUNTER 2024-09-12 14:28 | Day surgery (SDC) | payer MEDICARE, BC, SELFPAY ==
--- NOTE | 2024-09-12 14:31 | EXP.HP ---
History of Present Illness *Admission Date: 09/12/24 *Reason for visit:: Intrathecal refill; DDD *History of present illness: Same [facility] Disclaimer: The information contained in this section may have been updated after the patient was seen, as this information can be updated by other users. Medical History Obesity Post hysterectomy menopause Surgical History H/O Spinal surgery History of appendectomy History of back surgery History of carpal tunnel surgery History of knee replacement Hx of cholecystectomy Previous section Family History Other Family history of cancer No significant family history Social History Smoking Status: Never smoker alcohol intake: never substance use type: denies use current occupational status: other Travel in the last 8 weeks?: None household members: spouse housing: house current occupational exposures/hazards: No caffeine: Yes Have you lived/traveled outside [place] in past 30 days?: No Contact w/someone who lives/traveled outside [place] past 30 days?: No Exposure to someone with infectious disease in past 14 days?: No Do you have a fever (greater than 100.4 F or 38 C)?: No Have you tested positive for COVID-19?: No Exposed to someone with COVID-19 in past 14 days?: No Do you have a sore throat?: No Do you have a cough?: No Do you have any weakness?: No Do you have any diarrhea?: No Are you experiencing any unusual bleeding?: No Do you have any muscle aches/pain?: No Do you have any abdominal pain?: No Are you experiencing loss of taste or smell?: No Other Medical History Have you received the Flu Vaccine for this season: No Have you received the Pneumonia Vaccine: No Review of Systems Review of Systems Review of systems:: pertinent systems reviewed and negative unless documented below Review of systems (narrative): Review of Systems: General: No recent weight changes, no fever, no sleep disturbances Respiratory: No cough, no shortness of air, no recurring pulmonary infections Cardiovascular/peripheral vascular: No chest pain, no palpitations, no edema, no shortness of breath Gastrointestinal: No new onset incontinence, normal bowel movements reported Genitourinary: No new onset incontinence Musculoskeletal: Chronic back pain Psychiatric: [Normal mood/affect] Neurological: [Denies weakness in extremities], [denies balance issues] Meds Home Medications and Allergies Home Medications ?Medication ?Instructions ?Recorded ?Confirmed ?Type albuterol sulfate 90 mcg/actuation 2 puff inhalation Q4-6H PRN 10/07/17 07/25/24 History aerosol inhaler Shortness Of Breath duloxetine 60 mg capsule,delayed 60 mg PO BID MOOD 10/07/17 07/25/24 History release gabapentin 600 mg tablet 1,200 mg PO TID NEUROPATHY 10/07/17 07/25/24 History ropinirole 0.5 mg tablet 1 mg PO HS Restless leg 10/08/17 07/25/24 History meclizine 12.5 mg tablet 12.5 mg PO NEEDED PRN dizzeness 05/31/18 07/25/24 History zolmitriptan 5 mg tablet (Zomig) 5 mg PO ONCE migraines 05/31/18 07/25/24 History montelukast 10 mg tablet 10 mg PO PM allergies 08/02/18 07/25/24 History celecoxib 200 mg capsule 200 mg PO BID Pain 06/22/20 07/25/24 History aspirin 81 mg tablet,delayed 81 mg PO DAILY heart health 03/07/21 07/25/24 History release fexofenadine 180 mg tablet 180 mg PO HS allergies 03/07/21 07/25/24 History pantoprazole 40 mg tablet,delayed 40 mg PO DAILY GERD 03/07/21 07/25/24 History release New Prescriptions to Start Prescriptions: Allergies Allergy/AdvReac Type Severity Reaction Status Date / Time morphine Allergy Mild Other Verified 06/06/24 10:36 Exam Constitutional Constitutional: no acute distress *Routine HEENT Exam Head: Present normocephalic and atraumatic Eye: Present PERRL ENT: Present mucous membranes moist *Routine Neck Exam Neck: Present supple *Routine Respiratory Exam Respiratory: Present CTA bilaterally *Routine Cardiovascular Exam Cardiovascular: Present RRR *Routine Abdominal Exam Abdominal: Present soft *Routine Rectal Exam Rectal:: deferred *Routine Genitalia Exam Genitalia:: normal female Routine Back/Spine/Pelvis Exam Back/Spine: Present pain with flexion *Routine Skin Exam Skin: Present intact, dry and warm *Routine Neurological Exam Neurological: Present alert and oriented X3 Routine Psychiatric Exam Psychiatric: Present normal affect and normal thought process Assessment and Plan *Assessment and plan (1) Low back pain: Status: Chronic Category: Medical Code(s): M54.50 - Low back pain, unspecified (2) Mid back pain: Status: Chronic Category: Medical Code(s): M54.9 - Dorsalgia, unspecified Plan Patient has been instructed to contact the clinic with any concerns before the next appointment. Dr. Ramos has reviewed this note and agrees with this plan of care. This note was dictated using voice recognition software and make contain errors or omissions. All injections are used with Lidocaine, Bupivacaine and dexamethasone. Occasionally urine drug screen is needed to verify patient's compliance with our office pain contract. This is ordered based off specific treatments related to chronic pain with the potential to abuse certain medications.
--- NOTE | 2024-09-12 14:34 | P.PCN_ITS ---
Procedure Date: 09/12/24 Time: 14:45 Anesthesiologist:: Cheyanne Lee APRN Complications:: None Pre-procedure Diagnosis:: Degenerative disc disease of lumbar spine, mid back pain, low back pain, chronic pain syndrome Post-procedure Diagnosis:: Same Indications for Procedure:: Patient is a pleasant 65-year-old female who presents today for intrathecal refill and reprogram. Today she rates her pain a 3 out of 10. She denies any new falls or injuries. She does state overall she is doing really well. Patient is currently managed with intrathecal morphine 2 mg/mL with a daily dose of 0.5625 mg/day. She denies any side effects. Her Obed has been reviewed and is appropriate. Physical Exam: General: Alert and oriented x3, no acute distress, pleasant and cooperative Lungs: Respirations even and unlabored, symmetrical chest expansion Eyes: PERRL Musculoskeletal: Flexion and extension of lumbar [spine] somewhat guarded secondary to pain, [antalgic gait noted] Neurological: Speech clear, no gross sensory deficit Procedure Details:: Informed consent was obtained and the risk and benefits of the procedure were explained to the patient. The patient had noninvasive monitoring placed including noninvasive blood pressure cuff and pulse oximeter. Patient's pump was interrogated. The area over the pump was cleansed with chlorhexidine as a cleansing solution. In sterile fashion the pump was accessed with a 22-gauge needle. Approximately 5.3 mls of the pump solution was removed and discarded appropriately. The pump was then refilled with 20 mL's of morphine 2 mg/mL. The needle was withdrawn and a bandage was placed over the puncture site. The infusion rate was reprogrammed and continued at its current dosage. The patient tolerated well with no complication. Plan and Disposition:: Patient tolerated the procedure well with no complications and was discharged neurologically intact. Patient will return to clinic on or before their next intrathecal refill date. We will see the patient back in the clinic at the next intrathecal refill. Patient has been instructed to contact the clinic with any concerns before the next appointment. Dr. Ramos has reviewed this note and agrees with this plan of care. This note was dictated using voice recognition software and make contain errors or omissions. -- It Is medically necessary for this patient to continue to have their intrathecal pump refilled at regular intervals. This patient had an intrathecal pain pump implanted after meeting criteria of chronic intractable pain for greater than 3 months and failing conservative treatments. Patient has committed and been compliant to the treatment plan and all planned follow up care. Since implantation of the intrathecal pain pump, the patient has had decreased pain a nd been more functional. Oral medications have been reduced including intake of oral opioids. Patient continues to do well with intrathecal therapy with decrease in pain symptoms and increase in functional status. Stopping intrathecal medications can lead to life threatening withdrawal, seizures, cardiac arrest, severe pain, and possible . Pumps that are not refilled at regular intervals can be damages and cause and need for replacement. We continually titrate dose and concentration to optimize pain relief and function. We are limited in concentration for certain drugs to safely deliver medications through the pump and stay within the recommendations from the Polyanalgesic Consensus Committee Guidelines. Depending on dose and concentration these pumps may need to be refilled sooner than 3 months as we titrate. A UDS is needed to verify patient's compliance with our office pain contract. This is ordered based off specific treatments related to chronic pain with the potential to abuse certain medications.
[2024-09-12 14:42] VITALS: BP 113/77; PULSE 106; RESP 18; O2SAT 97
[2024-09-12 14:53] VITALS: BP 119/73; PULSE 100; RESP 16; O2SAT 100
[2024-09-12 14:54] VITALS: BP 120/69; PULSE 93; RESP 16; O2SAT 95; BMI 36.7
== END 2024-09-12 14:58 | disposition home or self-care (01) ==
PROVIDERS: PCP Family Medicine; Visit Provider Nurse Practitioner Family
DX: M51.369 Other intervertebral disc degeneration, lumbar region without mention of lumbar back pain or lower extremity pain (principal); G89.4 Chronic pain syndrome; G62.9 Polyneuropathy, unspecified; G25.81 Restless legs syndrome; G43.909 Migraine, unspecified, not intractable, without status migrainosus; K21.9 Gastro-esophageal reflux disease without esophagitis; Z88.5 Allergy status to narcotic agent; Z79.891 Long term (current) use of opiate analgesic; Z79.82 Long term (current) use of aspirin; Z90.710 Acquired absence of both cervix and uterus; Z90.49 Acquired absence of other specified parts of digestive tract; Z96.659 Presence of unspecified artificial knee joint; Z79.899 Other long term (current) drug therapy; Z78.0 Asymptomatic menopausal state
CPT/HCPCS: 62370

== ENCOUNTER 2024-10-31 09:38 | Day surgery (SDC) | payer MEDICARE, BC, SELFPAY ==
[2024-10-31 09:52] VITALS: BP 111/64; PULSE 89; RESP 18; O2SAT 96; BMI 37.0
[2024-10-31 10:16] VITALS: BP 109/74; PULSE 91; RESP 18; O2SAT 96
[2024-10-31 10:29] VITALS: BP 105/62; PULSE 71; RESP 18; O2SAT 98
--- NOTE | 2024-10-31 10:38 | EXP.PM.HP ---
History of Present Illness *Admission Date: 10/31/24 *Reason for visit:: Intrathecal refill; DDD *History of present illness: Same [facility] Disclaimer: The information contained in this section may have been updated after the patient was seen, as this information can be updated by other users. Medical History Obesity Post hysterectomy menopause Surgical History H/O Spinal surgery History of appendectomy History of back surgery History of carpal tunnel surgery History of knee replacement Hx of cholecystectomy Previous section Family History Other Family history of cancer No significant family history Social History Smoking Status: Never smoker alcohol intake: never substance use type: denies use current occupational status: other Travel in the last 8 weeks?: None household members: spouse housing: house current occupational exposures/hazards: No caffeine: Yes Other Medical History Have you received the Flu Vaccine for this season: No Have you received the Pneumonia Vaccine: No Review of Systems Review of Systems Review of systems:: pertinent systems reviewed and negative unless documented below Review of systems (narrative): Review of Systems: General: No recent weight changes, no fever, no sleep disturbances Respiratory: No cough, no shortness of air, no recurring pulmonary infections Cardiovascular/peripheral vascular: No chest pain, no palpitations, no edema, no shortness of breath Gastrointestinal: No new onset incontinence, normal bowel movements reported Genitourinary: No new onset incontinence Musculoskeletal: Chronic back pain Psychiatric: [Normal mood/affect] Neurological: [Denies weakness in extremities], [denies balance issues] Meds Home Medications and Allergies Home Medications ?Medication ?Instructions ?Recorded ?Confirmed ?Type albuterol sulfate 90 mcg/actuation 2 puff inhalation Q4-6H PRN 10/07/17 10/31/24 History aerosol inhaler Shortness Of Breath duloxetine 60 mg capsule,delayed 60 mg PO BID MOOD 10/07/17 10/31/24 History release gabapentin 600 mg tablet 1,200 mg PO TID NEUROPATHY 10/07/17 10/31/24 History ropinirole 0.5 mg tablet 1 mg PO HS Restless leg 10/08/17 10/31/24 History meclizine 12.5 mg tablet 12.5 mg PO NEEDED PRN dizzeness 05/31/18 10/31/24 History zolmitriptan 5 mg tablet (Zomig) 5 mg PO ONCE migraines 05/31/18 10/31/24 History montelukast 10 mg tablet 10 mg PO PM allergies 08/02/18 10/31/24 History celecoxib 200 mg capsule 200 mg PO BID Pain 06/22/20 10/31/24 History aspirin 81 mg tablet,delayed 81 mg PO DAILY heart health 03/07/21 10/31/24 History release fexofenadine 180 mg tablet 180 mg PO HS allergies 03/07/21 10/31/24 History pantoprazole 40 mg tablet,delayed 40 mg PO DAILY GERD 03/07/21 10/31/24 History release New Prescriptions to Start Prescriptions: Allergies Allergy/AdvReac Type Severity Reaction Status Date / Time morphine Allergy Mild Other Verified 06/06/24 10:36 Exam Data for Last 24 hours Vital signs and Labs for Last 24 Hours: Pulse Resp BP Pulse Ox O2 Del Method 91 H 18 109/74 L 96 Room Air 10/31/24 10:16 10/31/24 10:16 10/31/24 10:16 10/31/24 10:16 10/31/24 10:16 I & O for Last 24 hours: Intake & Output 10/28/24 10/29/24 10/30/24 10/31/24 23:59 23:59 23:59 23:59 Weight 216 lb Constitutional Constitutional: no acute distress *Routine HEENT Exam Head: Present normocephalic and atraumatic Eye: Present PERRL ENT: Present mucous membranes moist *Routine Neck Exam Neck: Present supple *Routine Respiratory Exam Respiratory: Present CTA bilaterally *Routine Cardiovascular Exam Cardiovascular: Present RRR *Routine Abdominal Exam Abdominal: Present soft *Routine Rectal Exam Rectal:: deferred *Routine Genitalia Exam Genitalia:: deferred Routine Back/Spine/Pelvis Exam Back/Spine: Present pain with flexion *Routine Skin Exam Skin: Present intact and warm *Routine Neurological Exam Neurological: Present alert and oriented X3 Routine Psychiatric Exam Psychiatric: Present normal affect and normal thought process Assessment and Plan *Assessment and plan (1) Low back pain: Status: Chronic Category: Medical Code(s): M54.50 - Low back pain, unspecified (2) Mid back pain: Status: Chronic Category: Medical Code(s): M54.9 - Dorsalgia, unspecified Plan Patient has been instructed to contact the clinic with any concerns before the next appointment. Dr. Ramos has reviewed this note and agrees with this plan of care. This note was dictated using voice recognition software and make contain errors or omissions. All injections are used with Lidocaine, Bupivacaine and dexamethasone. Occasionally urine drug screen is needed to verify patient's compliance with our office pain contract. This is ordered based off specific treatments related to chronic pain with the potential to abuse certain medications.
--- NOTE | 2024-10-31 10:40 | P.PCN_ITS ---
Procedure Date: 10/31/24 Time: 09:49 Anesthesiologist:: Cheyanne Lee APRN Complications:: None Pre-procedure Diagnosis:: Degenerative disc disease of lumbar spine, chronic pain syndrome Post-procedure Diagnosis:: Same Indications for Procedure:: Patient is a pleasant 64-year-old female who presents today for intrathecal refill and reprogram. Today she rates her pain a 1 out of 10 but does state when she gets up and starts to move if she does have increased pain. Patient is currently managed with morphine 2 mg/mL with a daily dose of 0.5625 mg/day. She denies any issues with this medication. She is requesting an increase if possible. Her Obed has been reviewed and is appropriate. Physical Exam: General: Alert and oriented x3, no acute distress, pleasant and cooperative Lungs: Respirations even and unlabored, symmetrical chest expansion Eyes: PERRL Musculoskeletal: Flexion and extension of lumbar [spine] somewhat guarded secondary to pain, [antalgic gait noted] Neurological: Speech clear, no gross sensory deficit Procedure Details:: Informed consent was obtained and the risk and benefits of the procedure were explained to the patient. The patient had noninvasive monitoring placed including noninvasive blood pressure cuff and pulse oximeter. Patient's pump was interrogated. The area over the pump was cleansed with chlorhexidine as a cleansing solution. In sterile fashion the pump was accessed with a 22-gauge needle. Approximately 6 mls of the pump solution was removed and discarded appropriately. The pump was then refilled with 20 mL's of morphine 2 mg/mL. The needle was withdrawn and a bandage was placed over the puncture site. The infusion rate was reprogrammed and increased to morphine 0.6191 mg/day. The patient tolerated well with no complication. Plan and Disposition:: Patient tolerated the procedure well with no complications and was discharged neurologically intact. Patient will return to clinic on or before their next intrathecal refill date. We will see the patient back in the clinic at the next intrathecal refill. Patient has been instructed to contact the clinic with any concerns before the next appointment. Dr. Ramos has reviewed this note and agrees with this plan of care. This note was dictated using voice recognition software and make contain errors or omissions. -- It Is medically necessary for this patient to continue to have their intrathecal pump refilled at regular intervals. This patient had an intrathecal pain pump implanted after meeting criteria of chronic intractable pain for greater than 3 months and failing conservative treatments. Patient has committed and been compliant to the treatment plan and all planned follow up care. Since implantation of the intrathecal pain pump, the patient has had decreased pain and been more functional. Oral medications have been reduced including intake of oral opioids. Patient continues to do well with intrathecal therapy with decrease in pain symptoms and increase in functional status. Stopping intrathecal medications can lead to life threatening withdrawal, seizures, cardiac arrest, severe pain, and possible . Pumps that are not refilled at regular intervals can be damages and cause and need for replacement. We continually titrate dose and concentration to optimize pain relief and function. We are limited in concentration for certain drugs to safely deliver medications through the pump and stay within the recommendations from the Polyanalgesic Consensus Committee Guidelines. Depending on dose and concentration these pumps may need to be refilled sooner than 3 months as we titrate. A UDS is needed to verify patient's compliance with our office pain contract. This is ordered based off specific treatments related to chronic pain with the p otential to abuse certain medications.
== END 2024-10-31 10:29 | disposition home or self-care (01) ==
PROVIDERS: PCP Family Medicine; Visit Provider Nurse Practitioner Family
DX: Z45.1 Encounter for adjustment and management of infusion pump (principal); M51.369 Other intervertebral disc degeneration, lumbar region without mention of lumbar back pain or lower extremity pain; G89.4 Chronic pain syndrome; E66.9 Obesity, unspecified; Z68.37 Body mass index [BMI] 37.0-37.9, adult; Z78.0 Asymptomatic menopausal state; Z88.5 Allergy status to narcotic agent; Z79.82 Long term (current) use of aspirin; Z79.899 Other long term (current) drug therapy
CPT/HCPCS: 62370

== ENCOUNTER 2025-03-27 15:08 | Outpatient (CLI) | payer MEDICARE, BC, SELFPAY ==
--- OUTSIDE RECORDS SUMMARY | 2025-03-12 10:35 | XMS_ITS | Encounter Summary ---
[facility] Address [address] [place] [id number] Care Team Providers Care Bar Welder Name Role Phone Afua Hurley Primary Care Provider [phone] [phone] Encounter Details Date Type Department Care Team (Late Contact Info) Description 03/12/2025 10:35 AM EST Ancillary Procedure [facility] ORTHOPEDICS & SPORTS MEDICINE [address] [facility] [address] [place] [address] Social History Tobacco Use Types Packs/Day Years Used Date Smoking Tobacco: Former Cigarettes 1 5 0 04/09/1980 - 04/09/1985 Passive Smoke Exposure: Past Smokeless Tobacco: Never Alcohol Use Standard Drinks/Week Comments No 0 (1 standard drink = 0.6 oz pur e alcohol) Comments No Sex and Gender Information Value Date Recorded Sex Assigned at Female 01/28/2025 11:44 AM EDT Legal Sex Female 7:49 AM EDT Gender Identity Not on file Sexual Orientation Straight 01/28/2025 11 :44 AM EDT documented as of this encounter Plan of Treatment Upcoming Encounters Date Type Department Care Team (Late Contact Info) Description 05/06/2025 2:30 PM EST Office Visit [facility] RHEUMATOLOGY [address] [facility] [address] [place] [id number] Nevin Lang APRN 330 [facility] [address] [place] [address] documented as of this encounter Procedures Procedure Name Priority Date/Time Associated Diagnosis Comments US GUIDED INJECTION Routine 03/12/2025 11:03 AM EST Primary osteoarthritis of right hip documented in this encounter Results * US Guided Injection (03/12/2025 11:03 AM EST) Anatomical Region Laterality Modality Ultrasound Narrative 03/12/2025 11:42 AM EST US GUIDED RIGHT HIP JOINT CORTICOSTEROID INJECTION us Solomon Aguilar MD IMG US ORDERABLES Final Res ult documented in this encounter Visit Diagnoses Not on filedocumented in this encounter Care Teams Bar Welder Relationship Specialty Start Date End Date Afua Hurley DO [facility] [place] [id number] PCP - General Family Medicine 10/14/15 documented as of this encounter
--- OUTSIDE RECORDS SUMMARY | 2025-03-12 10:40 | XMS_ITS | Encounter Summary ---
[facility] Address [address] [place] [address] Care Team Providers Care Stock Handler Floorperson Name Role Phone Afua Hurley Primary Care Provider [phone] [phone] Reason for Visit * Reason Comments Injections Right hip joint yasemin isone injection Encounter Details Date Type Department Care Team (Late st Contact Info) Description 03/12/2025 10:40 AM EST Office Visit [facility] ORTHOPEDICS & SPORTS MEDICINE [address] [facility] [address] [place] [address] Solomon Aguilar MD [address] [facility] [address] [place] [address] Primary osteoarthritis of right hip (Primary Dx) Social History Tobacco Use Types [...] AM EDT documented as of this encounter Progress Notes * Solomon Aguilar MD - 03/12/2025 10:40 AM ESTAssociated Order(s): - Large Joint Arthrocentesis: R hip joint Post-Procedure Diagnose(s): Primary osteoarthritis of right hip Procedure - Large Joint Arthrocentesis: R hip joint on 03/12/2025 10:26 AM Indications: pain Details: (22 spinal ) needle, ultrasound-guided anterolateral approach Medications: 2 mL bupivacaine (PF) 0.5 %; 2 mL lidocaine PF 1% 1 %; 80 mg triamcinolone acetonide 40 MG/ML Outcome: tolerated well, no immediate complications Procedure, treatment alternatives, risks and benefits explained, specific risks discussed. Consent was given by the patient. Immediately prior to procedure a time out was called to verify the correctpatient, procedure, equipment, administrative support assistant and site/side marked as required. Patient was prepped and draped in the usual sterile fashion. I discussed with the patient the potential benefits of performing a therapeutic injection of the right hip as well as potential risks including but not limited to infection, swelling, pain, bleeding,bruising, nerve/vessel damage, skin color changes, transient elevation in blood glucose levels, andfat atrophy. After informed consent and verifying correct patient, procedure site, and type of procedure, the area was prepped with Hibiclens, ethyl chloride was used to numb the skin. Via the anterior approach, 2cc of 1% lidocaine 2cc of 0.25% Bupivicaine and 2 cc of Kenalog were injected into theright hip joint utilizing ultrasound guidance for proper needle placement. The patient tolerated the procedure well. There were no complications. documented in this encounter Plan of Treatment Upcoming Encounters Date Type Department Care Team (Late st Contact Info) Description 05/06/2025 2:30 PM EST Office Visit [facility] RHEUMATOLOGY [address] [address] Nevin Lang APRN [address] [address] documented as of this encounter Procedures Procedure Name Priority Date/Time Associated Diagnosis Comments US GUIDED INJECTION Routine 03/12/2025 1 1:03 AM EST Primary osteoarthritis of right hip MS ARTHROCENTESIS ASPIR&/INJ MAJOR JT/BURSA W/US Routine 03/12/2025 10:26 AM EST Primary osteoarthritis of right hip documented in this encounter Results * US Guided Injection (03/12/2025 11:03 AM EST) Anatomical Region Laterality Modality Ultrasound Narrative 03/12/2025 11:42 AM EST US GUIDED RIGHT HIP JOINT CORTICOSTEROID INJECTION Solomon Aguilar MD [facility] US ORDERABLES Final Res ult * [place] ARTHROCENTESIS ASPIR&/INJ MAJOR JT/BURSA W/US (03/12/2025 10:26 AM EST) Narrative Solomon Aguilar MD - 03/12/2025 10:26 AM EST Solomon Aguilar MD 03/12/2025 10:47 AM - Large Joint Arthrocentesis: R hip joint on 03/12/2025 10:26 AM Indications: pain Details: (22 spinal ) needle, ultrasound-guided anterolateral approach Medications: 2 mL bupivacaine (PF) 0.5 %; 2 mL lidocaine PF 1% 1 %; 80 mg triamcinolone acetonide 40 MG/ML Outcome: tolerated well, no immediate complications Procedure, treatment alternatives, risks and benefits explained, specific risks discussed. Consent was given by the patient. Immediately prior to procedure a time out was called to verify the correct patient, procedure, equipment, administrative support assistant and site/side marked as required. Patient was prepped and draped in the usual sterile fashion. Result [facility] Solomon Aguilar MD PROCEDURE/MINOR SURGICAL OR DERABLES Final Result documented in this encounter Visit Diagnoses Diagnosis Primary osteoarthritis of right hip- Primary documented in this encounter Administered Medications Inactive Administered Medications - up to 3 most recent administrations Medication Order MAR Action Action Date Dose Rate Site bupivacaine (PF) (MARCAINE) 0.5 % injection 2 mL 2 mL, One-Time Injection, Starting on Poonam 03/12/25 at 1026, For 1 doseIndications:Primary osteoarthritis of right hip Given 03/12/2025 10:26 AM EST 2 mL Hip Right lidocaine PF 1% (XYLOCAINE) injection 2 mL 2 mL, One-Time Injection, Starting on Poonam 03/12/25 at 1026, For 1 doseIndications:Primary osteoarthritis of right hip Given 03/12/2025 10:26 AM EST 2 mL Hip Right triamcinolone acetonide (KENALOG-40) injection 80 mg 80 mg, One-Time Injection, Starting on Poonam 03/12/25 at 1026, For 1 doseIndications:Primary osteoarthritis of right hip Given 03/12/2025 10:26 AM EST 80 mg Hip Right documented in this encounter Care Teams Stock Handler Floorperson Relationship Specialty Start Date End Date Afua Hurley DO [facility] [place] [address] PCP - General Family Medicine 10/14/15 documented as of this encounter
--- NOTE | 2025-03-27 15:11 | MM_ITS ---
PROCEDURE INFORMATION: Exam: MG Bilateral Screening 3D Mammography Exam date and time: 03/27/2025 3:30 PM Age: 64 years old Clinical indication: Screening examination TECHNIQUE: Imaging protocol: Bilateral Screening tomosynthesis and 2D mammography including computer-aided detection (CAD) when performed. COMPARISON: MG MM DIG SCREENING MAMM BI W/CAD 01/08/2024 2:29 PM FINDINGS: MAMMOGRAPHY: Breast composition: The breasts are almost entirely fatty. Mass: None. Architectural distortion: None. Calcifications: No suspicious calcifications. Asymmetric density: None. Skin thickening: None. Axillary adenopathy: None. IMPRESSION: No mammographic evidence of malignancy. Annual screening is recommended unless otherwise clinically indicated. ASSESSMENT: BI-RADS Category 1: Negative.
--- OUTSIDE RECORDS SUMMARY | 2025-03-27 15:11 | XMS_ITS | Referral Summary ---
Author Organization [employer] ([place], [place], [place], [place], [place]) Address [address] [place] [id number] Care Team Providers Care Vehicle Service Attendant Name Role Phone Unavailable Primary Care Provider [...]
--- OUTSIDE RECORDS SUMMARY | 2025-03-27 15:11 | XMS_ITS | Encounter Summary ---
Author Organization [employer] ([place], [place], [place], [place], [place]) Address [address] [place] [address] Care Team Providers Care Student Assistance Counselor Name Role Phone Unavailable Primary Care Provider Unavailabl e Encounter Details Date Type Department Care Team (Late st Contact Info) Description 03/11/2020 Transcribed Document [facility] Family Medicine [address] [place] [address] ProviderUlises MD [address] [place] [address] Social History Tobacco Use Types [...] Ulises Shaver MD - 03/11/2020 9:25 AM POLYGRAPH EXAMINER Patient Education Materials Follows: Outpatient Surgery, Adult, [...] and water are not available, use hand light out examiner. ? Change your dressing as told by [...] or a bad smell. Medicines ??? Take akfy-[id number]-axpbnzv and prescription medicines only as told by [...] 07/16/2016 Document Revised: 06/24/2018 Document Reviewed: 07/16/2016 [employer] Patient Education ? 2020 [employer] documented in this encounter Plan of Treatment Not on file documented as of this encounter Visit Diagnoses Not on filedocumented in this encounter
--- OUTSIDE RECORDS SUMMARY | 2025-03-27 15:11 | XMS_ITS | Encounter Summary ---
Author Organization [facility] Address [address] [place] [id number] Care Team Providers Care Soda Fountain Manager Name Role Phone Afua Hurley DO Primary Care Provider [phone] [phone] Encounter Details Date Type Department Care Team (Latest Contact Info) Description 03/12/2025 Travel Social History Tobacco Use Types Packs/Day [...] Description 05/06/2025 2:30 PM EST Office Visit [facility] RHEUMATOLOGY [address] [address] Nevin Lang APRN [address] [facility] [address] [place] [address] documented as of this encounter Visit Diagnoses Not on filedocumented in this encounter Care Teams Soda Fountain Manager Relationship Specialty Start Date End Date Afua Hurley DO [facility] [place] [address] PCP - General Family Medicine 10/14/15 documented as of this encounter
--- OUTSIDE RECORDS SUMMARY | 2025-03-27 15:11 | XMS_ITS | Clinical Summary ---
Author Organization [facility] Address [address] [place] [address] Care Team Providers Care Elementary Substitute Teacher Name Role Phone Mei Afuajenifer Dejesusgh Primary Care Provider [phone] [phone] Allergies No known active allergies Medications montelukast [...] Night. Take 1 hour before bedtime. Active fexofenadine (YAEL) 180 MG tablet Take [...] Take 1 capsule by mouth Daily. Active hydrocortisone (CORTEF) 5 MG tablet TAKE 2 TABLETS BY MOUTH IN THE MORNING AND 1 AT NOON 05/21/19 Active levothyroxine (SYNTHROID, LEVOTHROID) 50 MCG tablet Take 1 tablet by mouth Every Morning. 08/14/19 24 Active fluconazole (DIFLUCAN) 150 MG tablet 1 tablet. 01/22/20 Active folic acid (FOLVITE) 1 MG tablet Take 1 tablet by mouth Daily. 01/20/20 Active Ozempic, 1 MG/DOSE, 4 MG/3ML solution pen-injector Inject 1 mg under the skin into the appropriate area as directed 1 (One) Time Per Week. 01/13/20 Active amitriptyline (ELAVIL) 25 MG tablet Take 1 tablet by mouth Daily. 02/01/20 Active DULoxetine (CYMBALTA) 60 MG capsule Take 1 capsule by mouth 2 (Two) Times a Day. 60 capsule 6 08/06/19 25 Active cyclobenzaprine (FLEXERIL) 10 MG tablet Take 0.5 tablets by mouth 3 (Three) Times a Day As Needed for Muscle Spasms. 90 tablet 5 08/06/19 25 Active celecoxib (CeleBREX) 200 MG capsule Take 1 capsule by mouth 2 (Two) Times a Day As Needed for Mild Pain. 60 capsule 6 08/06/19 25 Active gabapentin (NEURONTIN) 600 MG tabletIndications: Fibromyalgia,Prima ry osteoarthritis involving multiple joints,NSAID long-term use,High risk medication use Take 2 tablets by mouth 3 (Three) Times a Day. Take 2 tablets by mouth three times a day 180 tablet 5 02/25/20 Active Active Problems Problem Noted Date Diagnosed Date Encounter for medication monitoring 08/05/2024 Assessment & Plan (08/05/2024 10:30 AM EDT): Gabapentin Controlled substance agreement on chart from 08/2024 PDMP reviewed UDS ordered today Osteoarthritis 09/04/2023 Assessment & Plan (08/05/2024 10:47 AM EDT): 1. Weight loss would be helpful [...] pump installed 18. She had shoulder surgery. 19. Her back causes her the most pain. Assessment & Plan (09/05/2023 12:08 PM EDT): [...] shoulder surgery. Fibromyalgia 12/06/2021 Assessment & Plan (08/05/2024 10:46 AM EDT): * Medications/treatments tried included: Celebrex, Cymbalta, Baclofen, She saw pain management, Back injections, Rhizotomy procedures, physical therapy, chiropractor, Tramadol, hydrocodone, Flexeril , She saw [facility] rheumatology (Dr. Bojorquez), Skelaxin, gabapentin, She saw [...] handout to take home and review on fibromyalgia 5. She will follow up with us [...] She has seen Dr. Ramos for pain management. She now has a pain pump with morphine. 12. Weight loss would be helpful. She is taking Ozempic for weight loss. 13. She has taken Celebrex PRN for joint pain. We refilled this today. 14. She has taken various muscle relaxer's like Flexeril PRN for muscle pain/spasms. 15. She tried Rheumate 16. Her prognosis is guarded. She has chronic/constant pain 17. She has tried taking Elavil Assessment & Plan (09/05/2023 12:08 PM EDT): * Medications/treatments tried included: Celebrex, Cymbalta, Baclofen, She saw pain management, Back injections, Rhizotomy procedures, physical therapy, chiropractor, Tramadol, hydrocodone, Flexeril , She saw [facility] rheumatology (Dr. Bojorquez), Skelaxin, gabapentin, She saw [...] Encounters Date Type Department Care Team Description 03/12/2025 10:40 AM EST Office Visit [facility] ORTHOPEDICS & SPORTS MEDICINE [address] [facility] [address] [place] [address] Solomon Aguilar MD Primary osteoarthritis of right hip (Primary Dx) 03/12/2025 10:35 AM EST Ancillary Procedure [facility] ORTHOPEDICS & SPORTS MEDICINE [address] [facility] [address] [place] [address] 03/12/2025 Travel 02/27/2025 Telephone [facility] ORTHOPEDICS & SPORTS MEDICINE [address] [place] [address] [address] [place] [address] HARTLEY - US GUIDED INJECTION 02/24/2025 Refill [facility] RHEUMATOLOGY [address] [address] Hung Garcia APRN Fibromyalgia; Primary osteoarthritis involving multiple joints; NSAID long-term use; High risk medication use 02/24/2025 Refill [facility] RHEUMATOLOGY [address] [address] Hung Garcia APRN Fibromyalgia; Primary osteoarthritis involving multiple joints; NSAID long-term use; High risk medication use from Last 3 Months Immunizations Immunization Administration Dates Next Due COVID-19 (UNSPECIFIED) 03/28/2021,06/26/2020, Influenza, Unspecified 01/31/2021,03/15/2017 Family History Medical History Relation Name Comments Anxiety disorder Daughter Cancer Father Dad Psoriasis Father Dad Anxiety disorder Maternal Aunt Asthma Maternal Grandmother Che Arthritis Mother Mom Breast cancer Mother Mom Cancer Mother Mom Hypertension Mother Mom Miscarriages / Stillbirths Mother Mom Osteoporosis Mother Mom Ulcerative colitis Mother Mom Vision [...] Passive Smoke Exposure: Past Smokeless Tobacco: Never Tobacco Cessation:Counseling Given: Not Answered Alcohol Use Standard Drinks/Week Comments No 0 (1 standard drink = 0.6 oz pur e alcohol) Comments No Sex and Gender Information Value Date Recorded Sex Assigned at Female 01/28/2025 11:44 AM EDT Legal Sex Female 7:49 AM EDT Gender Identity Not on file Sexual Orientation Straight 01/28/2025 11 :44 AM EDT Last Filed Vital Signs Vital Sign Reading Time Taken Comments Blood Pressure 112/80 08/05/2024 10:30 AM EDT Pulse 100 08/05/2024 10:30 AM EDT Temperature 36.3 C (97.3 F) 08/05/2024 10:30 AM EDT Respiratory Rate 17 11/22/2023 3:16 PM EDT Oxygen Saturation 99% 12/04/2015 4:51 PM EDT Inhaled Oxygen Concentration - - Weight 100 kg (221 lb) 08/05/2024 10:30 AM EDT Height 163.6 cm (5' 4.41 ) 08/05/2024 10:30 AM E DT Body Mass Index 37.45 08/05/2024 10:30 AM EDT Plan of Treatment Upcoming Encounters Date Type Department Care Team (Late st Contact Info) Description 05/06/2025 2:30 PM EST Office Visit [facility] RHEUMATOLOGY [address] [place] [phone] Nevin Lang, MANAGER CONSTRUCTION [address] [address] [place] [address] Health Maintenance Due Date Last Done Comments Annual Gynecologic Pelvic an d Breast Exam 1962 TDAP/TD VACCINES (1 - Tdap) 1981 MAMMOGRAM 2002 COLOGUARD 2007 COLON CANCER SCREENING 5 YEA R SIGMOIDOSCOPY 2007 COLONOSCOPY 2007 [address]AL CANCER SCREENING 2007 CT COLONOGRAPHY 2007 FECAL OCCULT BLOOD TEST 2007 FIT Testing (1 year) 2007 ANNUAL WELLNESS VISIT 09/23/2016 HEPATITIS C SCREENING 09/23/2016 Pneumococcal Vaccine 50+ Completed 06/25/2024 ZOSTER VACCINE Completed 09/15/2024, 06/25/2024 INFLUENZA VACCINE Completed 02/19/2025, , 03/07/2021, Additional history exists Medical Devices Implanted Type Area Side Boss Device Identifier Shelf Expiration Date Model / Serial / Lot Pain Pump-05/19/2022 Implanted:05/19 (Quantity not on file) Pain Pump [employer] 8637 / [id number] / Procedures Procedure Name Priority Date/Time Associated Diagnosis Comments US GUIDED INJECTION Routine 03/12/2025 1 1:03 AM EST Primary osteoarthritis of right hip [place] ARTHROCENTESIS ASPIR&/INJ MAJOR JT/BURSA W/US Routine 03/12/2025 10:26 AM EST Primary osteoarthritis of right hip from Last 3 Months Results * US Guided Injection (03/12/2025 11:03 AM EST) Anatomical Region Laterality Modality Ultrasound Narrative 03/12/2025 11:42 AM EST US GUIDED RIGHT HIP JOINT CORTICOSTEROID INJECTION Solomon Aguilar MD IMG US ORDERABLES Final Res ult * [place] ARTHROCENTESIS ASPIR&/INJ MAJOR JT/BURSA W/US (03/12/2025 10:26 AM EST) Solomon Osman MD - 03/12/2025 10:26 AM Solomon Salomon MD 03/12/2025 10:47 AM - Large Joint [...] to verify the correct patient, procedure, equipment, senior administrative support and site/side marked as required. Patient was prepped and draped in the usual sterile fashion. Solomon Aguilar MD PROCEDURE/MINOR SURGICAL OR DERABLES Final Result from Last 3 Months Insurance [id number] [id number] [facility] B Advance Directives * Full Code (Latest Code Status on File) Date Activated Date Inactivated Comments 12/02/2015 10:22 AM 12/04/2015 7:59 PM Care Teams Elementary Substitute Teacher Relationship Specialty Start Date End Date Afua Hurley DO [address] [place] [address] PCP - General Family Medicine 10/14/15
--- OUTSIDE RECORDS SUMMARY | 2025-03-27 15:11 | XMS_ITS | Encounter Summary ---
[facility] Organization [facility] Address [address] [place] [id number] Care Team Providers Care Postal Service Sectional Center Manager Name Role Phone PraveenyvetteAfuagh Primary Care Provider [phone] Reason for Visit * Reason Comments Med Refill Encounter Details Date Type Department Care Team (Late st Contact Info) Description 02/24/2025 Refill [facility] RHE[facility]OLOG[facility] 330 [facility] [address] [place] [address] Hung Branham APRN 330 [facility] [address] [place], [place] [id number] Fibromyalgia; Primary osteoarthritis involving multiple joints; NSAID [...] AM EDT documented as of this encounter Miscellaneous Notes * Telephone Encounter - Prachi Hui MA - 02/24/2025 2:16 PM EST Please advise * Telephone Encounter - Prachi Hui MA - 02/24/2025 1:56 PM EST Rx Refill Note Requested Prescriptions Refused Prescriptions Disp Refills gabapentin (NEURONTIN) 600 MG tablet [Pharmacy Med Name: Gabapentin 600 MG Oral Tablet] 180 tablet 0 Sig: TAKE 2 TABLETS BY MOUTH THREE TIMES DAILY Refused By: HUNG BRANHAM Reason for Refusal: Other Last office visit with prescribing clinician: 08/05/2024 Last telemedicine visit with prescribing clinician: Visit date not found Next office visit with prescribing clinician: Visit date not found Prachi Hui MA 02/24/25, 13:56 EST Patient needs to schedule upcoming appointment * Telephone Encounter - Hung Branham APRN - 02/24/2025 12:16 PM EST Patient needs an upcoming appt scheduled. * Telephone Encounter - Prachi Hui MA - 02/24/2025 12:09 PM EST Rx Refill Note Requested Prescriptions Pending Prescriptions Disp Refills gabapentin (NEURONTIN) 600 MG tablet [Pharmacy Med Name: Gabapentin 600 MG Oral Tablet] 180 tablet 0 Sig: TAKE 2 TABLETS BY MOUTH THREE TIMES DAILY Last office visit with prescribing clinician: 08/05/2024 Last telemedicine visit with prescribing clinician: Visit date not found Next office visit with prescribing clinician: Visit date not found Prachi Hui MA 02/24/25, 12:09 EST Please advise: Anticonvulsants Protocol Failed documented in this encounter Plan of Treatment Upcoming Encounters Date Type Department Care Team (Late st Contact Info) Description 05/06/2025 2:30 PM EST Office Visit [facility] [address] [address] Nevin Lang APRN 330 [facility] [address] [place] [address] documented as of this encounter Visit Diagnoses Diagnosis Fibromyalgia Unspecified myalgia and myositis Primary osteoarthritis involving multiple joints NSAID long-term use Encounter for long-term (current) use of non-steroidal anti-inflammatories High risk medication use documented in this encounter Care Teams Postal Service Sectional Center Manager Relationship Specialty Start Date End Date Afua Hurley DO [address] [place] [address] PCP - General Family Medicine 10/14/15 documented as of this encounter
--- OUTSIDE RECORDS SUMMARY | 2025-03-27 15:11 | XMS_ITS | Encounter Summary ---
Author Organization [employer] ([place], [place], [place], [place], [place]) Address [address] [place] [address] Care Team Providers Care Supervisor Wet End Name Role Phone Unavailable Primary Care Provider Unavailabl e Encounter Details Date Type Department Care Team (Late st Contact Info) Description 03/11/2020 Transcribed Document [facility] [place] Medicine [address] [place] [address] ProviderUlises MD [address] [place] [address] Social History Tobacco Use Types [...] - Historical ProviderMD - 03/11/2020 7:53 AM PROMOTIONS FIRM ACCOUNTS MANAGER [facility] Main OR PACU Summary Primary Physician: VICTOR M BANKS DPM-POD Finalized Date/Time: 03/11/20 09:35:18 Pt. Name: GABRIEL CARDONA/Sex: 1960 Female Med Rec #: [id number] Physician: VICTOR M BANKS DPM-POD Financial #: [id number] Pt. Type: O Room/Bed: /2 Admit/Disch: 03/11/20 05:26:00 - Institution: [facility] Main OR PACU I Case Times [...]
--- OUTSIDE RECORDS SUMMARY | 2025-03-27 15:11 | XMS_ITS | Encounter Summary ---
Author Organization [employer] ([place], [place], [place], [place], [place]) Address [address] [place] [address] Care Team Providers Care Hydro Electric Station Operator Name Role Phone Unavailable Primary Care Provider Unavailabl e Encounter Details Date Type Department Care Team (Late st Contact Info) Description 03/11/2020 Transcribed Document [facility] [place] [address] [place] [address] ProviderUlises MD [address] [place] [address] Social History Tobacco Use Types [...] - Ulises ProviderMD - 03/11/2020 7:53 AM EMERGENCY ROOM REGISTERED NURSE [facility] Main OR IntraOp Summary Primary Physician: VICTOR M BANKS DPM-POD Finalized Date/Time: 03/14/20 15:10:49 Pt. Name: GABRIEL CARDONA/Sex: 1960 Female Med Rec #: [id number] Physician: VICTOR M BANKS DPM-POD Financial #: [id number] Pt. Type: O Room/Bed: /2 Admit/Disch: 03/11/20 05:26:00 - 03/11/20 09:47:00 Institution: 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(Bilateral) Excision(Bilateral) Excision(Bilateral) Other Attendee Superficial Wound Closed By: Last Modified By: RACHEL MURILLO, RACHEL LORA, RACHEL LORA RN 03/11/20 08:29:34 03/11/20 08:29:34 03/11/20 08:29:34 Entry 4 Entry 5 Entry 6 Case Attendee RACHEL MURILLO, RN YENI CABALLERO, RN Bg Mendoza, Hand Candy Cutter Role Performed Pumping Plant Operator, First Pumping Plant Operator, Second Scrub, First Time In 03/11/20 07:29:00 03/11/20 07:29:00 03/11/20 07:29:00 Time Out 03/11/20 08:29:00 03/11/20 08:29:00 03/11/20 08:29:00 Procedure Neuroma Mortons Neuroma Mortons Neuroma Mortons Excision(Bilateral) Excision(Bilateral) Excision(Bilateral) Other Attendee Superficial Wound Closed By: Last Modified By: RACHEL MURILLO, RACHEL LORA, RACHEL LORA RN 03/11/20 08:29:34 03/11/20 08:29:34 03/11/20 08:29:34 [facility] IntraOp Case Attendance Audit 03/11/20 08:29:34 Car Sander: BECCA Modifier: BECCA <+> 1 Time Out [...] Out 6 <*> Procedure Neuroma Mortons Excision(Bilateral) [facility] IntraOp Case Times Entry 1 Patient In Room Time 03/11/20 07:29:00 Out Room Time 03/11/20 08:29:00 Anesthesia Start Time 03/11/20 07:29:00 Stop Time 03/11/20 08:29:00 Surgery / Procedure Times Start Time 03/11/20 07:53:00 Stop Time 03/11/20 08:25:00 Last Modified By: RACHEL MURILLO RN 03/11/20 08:29:09 [facility] IntraOp Case Times Audit 03/11/20 08:29:09 Car Sander: SMITHML Modifier: SMITHML <+> 1 Out Room Time <+> 1 Stop Time <+> 1 Stop Time 03/11/20 07:53:06 Car Sander: BECCA Modifier: SMITHML <+> [address] [facility] IntraOp Cautery Entry 1 ESU Identification Cautery Type Monopolar ESU ID Number [id number] ID Type Hospital Number Cautery Settings Cut [...] Modified By: RACHEL MURILLO RN 03/11/20 07:52:14 [facility] IntraOp Communication Entry 1 Communication To Family/Significant other Comment START Communication By YENI CABALLERO RN Date and Time 03/11/20 07:50:00 Last Modified By: RACHEL MURILLO RN 03/11/20 07:51:00 [facility] IntraOp Counts Verification Entry 1 Procedure Neuroma Mortons Excision(Bilateral) Count Info Count Type Sponge, Sharps Counts Verification Baseline/pre-procedure Sequence Count Results Not Applicable Counts Performed By Count Performed By Bg Mendoza Surgical (Scrub) Drilling Field Operator Count Performed By RACHEL MURILLO RN (RN) Last Modified By: RACHEL MURILLO RN 03/11/20 07:47:36 [facility] IntraOp Counts Final Entry 1 Procedure Neuroma Mortons Excision(Bilateral) Final Count Info Count Type Sponge, Sharps Counts Verification Skin Closure/end of Sequence procedure Count Results Correct, surgeon notified Counts Performed By Count Performed By Bg Mendoza, Surgical (Scrub) Drilling Field Operator Count Performed By RACHEL MURILLO RN (RN) Last Modified By: RACHEL MURILLO RN 03/11/20 08:19:28 [facility] IntraOp Departure from OR Entry 1 Integumentary Assessment Integumentary WDL with exceptions Assessment WDL Transfer/Handoff Transfer to PACU Phase I Handoff Method Bedside/Face to face, Phone call Post-op Transport Stretcher/Gurney Via Patient Transport CLOTILDE GRANADO NA, Accompanied by RACHEL MURILLO RN Last Modified By: RACHEL MURILLO RN 03/11/20 07:52:37 [facility] IntraOp Dressing and Packing Entry 1 Type Dressing Location [place] Wound Dressing Item 4x4's, Xeroform, Kerlix/Toan, Tavo Applied By VICTOR M BANKS DPM-POD Last Modified By: RACHEL MURILLO RN 03/11/20 08:07:18 [facility] IntraOp Fire Risk Assessment Entry 1 Fire [...] Modified By: RACHEL MURILLO RN 03/11/20 07:48:18 [facility] IntraOp General Case Call Worker Person 1 Case Information OR OR 04 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 IntraOp Intraoperative Assessment Entry 1 Handoff Method [...] Modified By: RACHEL MURILLO RN 03/11/20 07:49:01 [facility] IntraOp Intraoperative Equipment Entry 1 Type Equipment Equipment Equipment Meghana Suction System ID Number [id number] Setting HIGH Intraop Monitoring Antiembolic Devices Scopes Photo/Video Documentation Last Modified By: RACHEL MURILLO RN 03/11/20 07:52:58 [facility] IntraOp Medication Admin Entry 1 Entry 2 Medication/Irrigant lidocaine 1% 50ml vial Bupivicaine/Marcaine - [id number] 0.5% 30ml - [id number] Combo Med List 1 - Combo Med 1 - Combo Med Time Administered Route of LOCAL LOCAL Administration Dose Dose 10 10 Unit of Measure ml million units Volume Administered By VICTOR M BANKS, DPM-POD VICTOR M BANKS, DPM-POD Procedure Irrigation Irrigant Volume In Irrigant Volume Out Last Modified By: RACHEL MURILLO RN SMITH, MYRIAH L., RN 03/11/20 07:54:12 03/11/20 07:54:12 [facility] IntraOp Patient Positioning Entry 1 Procedure Neuroma [...] Modified By: RACHEL MURILLO RN 03/11/20 07:53:51 [facility] IntraOp Sign In Entry 1 Patient, Site, [...] Modified By: RACHEL MURILLO RN 03/11/20 07:47:47 [facility] IntraOp Sign Out Entry 1 RN Confirmation [...] Modified By: RACHEL MURILLO RN 03/11/20 08:29:24 [facility] IntraOp Skin Prep Entry 1 Procedure Neuroma Mortons Excision(Bilateral) Prescribed Yes Pre-Surgical Prep Completed Prep Area BILATERAL FEET Intraop Prep Integumentary WDL with patient Assessment WDL specific variances Prep Agents Chloraprep Prep by RACHEL MURILLO RN Hair Removal Methods No hair removal performed Last Modified By: RACHEL MURILLO RN 03/11/20 07:48:09 [facility] IntraOp Surgical Procedures Entry 1 Procedure Neuroma Mortons Excision Modifiers Bilateral Additional (EXCISION NEUROMA Procedure BILATERAL SECOND Description INTERSPACER) Primary Procedure Yes Primary Surgeon VICTOR M BANKS DPM-POD Start 03/11/20 07:53:00 Stop 03/11/20 08:25:00 Anesthesia Type General Specialty SN Podiatry Wound Class I - Clean Last Modified By: RACHEL MURILLO RN 03/11/20 08:29:33 [facility] IntraOP Time Out Entry 1 Procedure to [...] Modified By: RACHEL MURILLO RN 03/11/20 07:54:39 [facility] IntraOp Tourniquet Entry 1 Entry 2 Type Pneumatic Pneumatic Serial/Unit Number [id number] Setting 250 250 mmHg Pheumatic Yes Yes [...] MYRIAH L., RN 03/11/20 08:25:38 03/11/20 08:25:38 [facility] IntraOp Tourniquet Audit 03/11/20 08:25:38 Car Sander: BECCA Modifier: BECCA <+> 1 Stop Time <+> 2 Stop Time Case Comments <None> Finalized By: АЛЕКСАНДР MACIEL Document Signatures Signed By: RACHEL MURILLO RN 03/11/20 08:29 АЛЕКСАНДР MACIEL 03/14/20 15:10 Unfinalized History Date/Time Username Reason for Unfinalizing Freetext Reason for Unfinalizing 03/14/20 15:10 WATTSDR Correct Billing documented in this encounter Plan of Treatment Not on file documented as of this encounter Visit Diagnoses Not on filedocumented in this encounter
--- OUTSIDE RECORDS SUMMARY | 2025-03-27 15:11 | XMS_ITS | Encounter Summary ---
Author Organization [employer] ([place], [place], [place], [place], [place]) Address [address] [place] [address] Care Team Providers Care Radius Corner Machine Operator Name Role Phone Unavailable Primary Care Provider Unavailabl e Encounter Details Date Type Department Care Team (Late st Contact Info) Description 03/17/2020 Transcribed Document [facility] [place] [address] [place] [address] ProviderUlises MD [address] [place] [address] Social History Tobacco Use Types [...] Cerner Conversion Note - Ulises ProviderMD - 03/17/2020 8:23 AM WINDOWS APPLICATION DEVELOPER DATE OF PROCEDURE: 03/11/2020 SURGEON: Van Marr DPM LOCATION: [facility]. PREOPERATIVE DIAGNOSIS: Bilateral neuromas in the 2nd [...] the dorsal aspect. Then put a laminar drain tiler in between the 2nd and 3rd metatarsals [...] preserve protect vital neurovascular structures. A laminar drain tiler was inserted between the 2nd and 3rd [...] her in a week at my office. /[id number] KATH Bueno/GARCÍA / CHINO / MODL /[id number] Electronically signed by Aubrey, [facility] Conversion Sound Equipment Mechanic Cerner at 07/27/2022 1:39 PM CDT documented in this encounter Plan of Treatment Not on file documented as of this encounter Visit Diagnoses Not on filedocumented in this encounter
--- OUTSIDE RECORDS SUMMARY | 2025-03-27 15:11 | XMS_ITS | Encounter Summary ---
[facility] Address [address] [place] [address] Care Team Providers Care Dental Hygiene Administrative Assistant Name Role Phone Afua Hurley Primary Care Provider [phone] Reason for Visit * Reason Onset Date Comments DR. AGUILAR - GUIDED INJECTION 02/27/2025 Encounter Details Date Type Department Care Team (Late st Contact Info) Description 02/27/2025 Telephone [facility] ORTHOPEDICS & SPORTS MEDICINE [address] [facility] [address] [place] [address] Solomon Aguilar MD [address] [facility] [address] [place] [address] DR. AGUILAR - GUIDED INJECTION Social History Tobacco Use Types Packs/Day Years [...] encounter Miscellaneous Notes * Telephone Encounter - Emilie Ramirez - 03/02/2025 9:09 AM EST Scheduled. * Telephone Encounter - Susie Tom RegSched Rep - 02/27/2025 4:07 PM EST Caller: Sue Cardona Relationship to patient: Self Best call back number: [phone] Patient is needing: PATIENT WOULD LIKE TO SCHEDULE NEXT US GUIDED INJECTION FOR RIGHT HIP. ANY TIMEOTHER THEN March DUE TO DENTAL APPOINTMENT. PLEASE ADVISE. documented in this encounter Plan of Treatment Upcoming Encounters Date Type Department Care Team (Late st Contact Info) Description 05/06/2025 2:30 PM EST Office Visit [facility] RHEUMATOLOGY [address] [address] Nevin Lang APRN [address] [address] documented as of this encounter Visit Diagnoses Not on filedocumented in this encounter Care Teams Dental Hygiene Administrative Assistant Relationship Specialty Start Date End Date Afua Hurley DO [facility] [place] [address] PCP - General Family Medicine 10/14/15 documented as of this encounter
--- OUTSIDE RECORDS SUMMARY | 2025-03-27 15:11 | XMS_ITS | Encounter Summary ---
Author Organization [employer] ([place], [place], [place], [place], [place]) Address [address] [place] [address] Care Team Providers Care Wire Welder Name Role Phone Unavailable Primary Care Provider Unavailabl e Encounter Details Date Type Department Care Team (Late st Contact Info) Description 03/08/2020 Transcribed Document [facility] [place] [address] [place] [address] ProviderUlises MD [address] [place] [address] Social History Tobacco Use Types [...] - Historical ProviderMD - 03/08/2020 11:29 AM SHEET ROCK INSTALLER PAT Adult Entered On: 03/08/2020 11:32 EST Performed On: 03/08/2020 11:29 EST by Van Kirk Rn Pain Assessment Pain Assessment : Initial assessment Pain Scale Goal : 3 Kelly Landa RN - 03/11/2020 6:22 EST Height and Weight, Clinical Dosing Height Source : Measured Height Entry Format : Andrew Height, Feet : 0 ft(Converted to: 0 cm, 0 Inch) Height, Inches : 64 Inch(Converted to: 5 ft 4 Inch, 162.56 cm) Clinical Height : 162.56 cm Weight Source : Standing scale Weight Entry Format : Andrew Clinical Dosing Weight : 109.09 kg Weight, Pounds : 240 lb Body Surface Area (BSA) : 2.12 m2 Body Mass Index : 41.3 kg/m2 (>HHI) [place] Body Weight : 54 kg Kelly Landa [...] Van Kirk Rn - 03/08/2020 11:29 EST [place] Suicide Severity Rating Scale (C-SSRS) CSSRS Past [...] Ambulatory Legal Guardian : Spouse Support Person/Patient Gas Compressor Operator : Yes Support Person/Pt Rep Name : Van Cardona - Support Person/Pt Rep Contact Information : [phone] Want Family/Rep/Phys Notified of Admit : Van Rizzo Rn - 03/08/2020 11:29 EST Emergency Contact #1 : Van Cardona Emergency Contact #1 Emergency Contact #1 Relationship : Emergency Contact #2 : none Emergency Contact #2 Phone Number : none Emergency Contact #2 Relationship : none Kelly Landa RN - 03/11/2020 6:05 EST Information Obtained From : Patient Primary Language : Arabic Preferred Communication Mode : Verbal Communication Barrier : None Academic Advisor Needed : Van Rizzo Rn - 03/08/2020 [...] Van Kirk Rn - 03/08/2020 11:29 EST documented in this encounter Plan of Treatment Not on file documented as of this encounter Visit Diagnoses Not on filedocumented in this encounter
--- OUTSIDE RECORDS SUMMARY | 2025-03-27 15:11 | XMS_ITS | Encounter Summary ---
[facility] Address [address] [place] [id number] Care Team Providers Care Sand Caster Name Role Phone Afua Hurley Ellen Primary Care Provider [phone] Reason for Visit * Reason Comments Med Refill Encounter Details Date Type Department Care Team (Late st Contact Info) Description 03/11/2024 Refill [facility] RHEUM[facility]OLOGY [address] [address] Ivan Alvarado DO [address] [id number] Fibromyalgia; Primary osteoarthritis involving multiple joints; NSAID [...] encounter Miscellaneous Notes * Telephone Encounter - Debi Mckeon RN - 03/11/2024 6:10 PM EST Please schedule pt. An apt and let me know so we can send in meds. documented in this encounter Plan of Treatment Upcoming Encounters Date Type Department Care Team (Late st Contact Info) Description 05/06/2025 2:30 PM EST Office Visit [facility] RHEUMATOLOGY [address] [address] Nevin Lang APRN [address] [address] documented as of this encounter Visit Diagnoses Diagnosis Fibromyalgia Unspecified myalgia and myositis Primary osteoarthritis involving multiple joints NSAID long-term use Encounter for long-term (current) use of non-steroidal anti-inflammatories High risk medication use documented in this encounter Care Teams Sand Caster Relationship Specialty Start Date End Date Afua Hurley DO [address] [place] [address] PCP - General Family Medicine 10/14/15 documented as of this encounter
--- OUTSIDE RECORDS SUMMARY | 2025-03-27 15:11 | XMS_ITS | Clinical Summary ---
Author Organization [facility] Address [address] [place] [address] Care Team Providers Care Emr Specialist Name Role Phone Ford Rodriguez MD Primary Care Provider [phone] Family History Medical History Relation Name Comments [...] of Treatment Not on file Care Teams Emr Specialist Relationship Specialty Start Date End Date Ford Rodriguez MD [address] [place] [address] PCP - General 08/20/20
--- OUTSIDE RECORDS SUMMARY | 2025-03-27 15:11 | XMS_ITS | Data Portability ---
Author Organization [facility] C[place] Address [address] [place] [address] Care Team Providers Care Organ Pipe Voicer Name Role Phone ESTUARDO BURK Primary Care Provider Assessment No assessment recorded. Plan of Treatment Reminders Order Date Submit Date Provider Last Modified By Organization Details Last Modified Time Details Appointments ULTRASO UND 2025 10:00A M ULTRASOUND Not available Not available Not available RECHECK 2025 10:15A M JOSE DAVID CORTEZ MD Not available Not available Not available Lab BMP, serum or plasma 2024 025 [facility], [address] [place] [address], [phone], 06/10/2024 12:33:27 TSH, serum or plasma 2024 025 [facility], [address] [place] [address], [phone], 06/10/2024 12:35:53 T4, free, serum 2024 025 [facility], [address] [place] [address], [phone], 06/10/2024 12:35:51 cortiso l, serum or plasma 2023 024 [facility], [address] [place] [address], [phone], 05/16/2023 11:26:17 acth, plasma 2023 024 [facility], [address] [place] [address], [phone], 05/20/2023 15:29:53 TSH, serum or plasma 2023 024 [facility], [address] [place] [address], [address], 05/16/2023 11:26:19 T4, free, serum 2023 024 [facility], [address] [place] [address], [phone], 05/16/2023 11:26:15 Referral None recorde d. Procedures None recorde d. Surgeries None recorde d. Imaging US, neck, soft tissue - To be done before next visit after 1 year in June 2025[email or web address] Radiology [facility], [address] [place] [address], [phone], 09/08/2024 09:20:29 US, neck, soft tissue 2023 024 [facility], [address] [place] [address], [phone], 05/30/2023 16:21:29 Medication Orders clobeta brandon 0.05 % scalp solutio n [email or web address] [facility] [place], [address], 06/07/2023 17:53:24 prednis one 5 mg tablet 2022 023 [facility] [place], [address], 05/17/2022 11:42:21 Patient TargetsNo targets recorded. Patient InstructionsNo instructions recorded. Reason for Referral None Reported. Results Created Date Observation Date Name Description Value Unit Range Abnormal Flag Note LastModifiedBy Organization Detail LastModifiedTime 05/16/19 24 05/16/2023 T4,FR EE T4,free 0.92 NG/dL 0.93-1 .70 low Not Available [facility] [address] [place] [address], [phone], 05/16/2023 11:26:15 05/16/19 24 05/16/2023 CORTI BRANDON cortisol 3.93 ug/dL 2.68-1 8.40 normal CORTI BRANDON LAWRENCE L RANGE S: 6 am to 10 am 6.02 - 18.4 ug/dL 4 pm to 8 pm 2.68 - 10.5 ug/dL . Not Available [facility] [address] [place] [address], [address], 05/16/2023 11:26:17 05/16/19 24 05/16/2023 TSH TSH 7.610 u[IU] /mL 0.270- 4.200 high Not Available [facility] [address] [place] [address], [address], 05/16/2023 11:26:18 05/16/19 24 05/20/2023 ACTH acth 9 pg/mL 6-50 normal Refer ence range appli es only to the speci mens colle cted betwe en 7am-1 0am. Not Available [facility] [address] [place] [address], [address], 05/20/2023 15:29:53 06/11/19 25 06/10/2024 BASIC METAB OLIC PANEL glucose 75 mg/dL 74-100 normal Not Available [facility] [address] [place] [address], [address], 06/10/2024 12:33:27 06/11/19 25 06/10/2024 BASIC METAB OLIC PANEL blood urea nitrogen 14 mg/dL 6-20 normal Not Available [facility] [address] [place] [address], [phone], 06/10/2024 12:33:27 06/11/19 25 06/10/2024 BASIC METAB OLIC PANEL creatinine 1.08 mg/dL 0.50-0 .95 high Not Available [facility] [address] [place] [address], [address], 06/10/2024 12:33:27 06/11/19 25 06/10/2024 BASIC METAB OLIC PANEL BUN/creatini ne ratio 13 (calc ) 10-20 normal Not Available [facility] [address] [place] [address], [id number], 06/10/2024 12:33:27 06/11/19 25 06/10/2024 BASIC METAB OLIC PANEL sodium 140 mmol/ L 136-14 5 normal Not Available [facility] [address] [place] [address], [address], 06/10/2024 12:33:27 06/11/19 25 06/10/2024 BASIC METAB OLIC PANEL potassium 4.5 mmol/ L 3.4-5. 0 normal Not Available [facility] [address] [place] [address], [address], 06/10/2024 12:33:27 06/11/19 25 06/10/2024 BASIC METAB OLIC PANEL chloride 103 mmol/ L 98-107 normal Not Available [facility] [address] [place] [address], [address], 06/10/2024 12:33:27 06/11/19 25 06/10/2024 BASIC METAB OLIC PANEL carbon dioxide 27 mmol/ L 22-31 normal Not Available [facility] [address] [place] [address], [address], 06/10/2024 12:33:27 06/11/19 25 06/10/2024 BASIC METAB OLIC PANEL anion gap 10 (calc ) 7-25 normal Not Available [facility] [address] [place] [address], [address], 06/10/2024 12:33:27 06/11/19 25 06/10/2024 BASIC METAB OLIC PANEL calcium 9.4 mg/dL 8.6-10 .2 normal Not Available [facility] [address] [place] [address], [address], 06/10/2024 12:33:27 06/11/19 25 06/10/2024 BASIC METAB OLIC PANEL GFR 58 >= 60 abnormal NOT E New calcu latio n for GFR (CKD- EPI 2020) is formu lated witho ut race adjus tment facto rs at the recom menda tion of the Natio nal [employer] ation and Artur Silvae ty of Nephr ology . This calcu latio n has not been valid ated in pregn ant women . For pedia reagan patie nts refer to https ://lakeisha bliss.o rg/pr datess maryanaal s/KDO QI/gf r_cal culat orPed Not Available [facility] [address] [place] [address], [address], 06/10/2024 12:33:27 06/11/19 25 06/10/2024 T4,FR EE T4,free 1.36 NG/dL 0.93-1 .70 normal Not Available [facility] [address] [place] [address], [address], 06/10/2024 12:35:51 06/11/19 25 06/10/2024 TSH TSH 1.420 u[IU] /mL 0.270- 4.200 normal Not Available [facility] [address] [place] [address], [address], 06/10/2024 12:35:53 05/30/19 24 05/30/2023 US, neck, soft tissu e [facility] [address] [place] [address] Crystal t Name: GABRIEL contreras : [birth year] 65 Crystal [...] Clark Coyne MD on 024 4:[address] [facility]iology [facility] [address] [place], [address], 06/04/2023 11:11:03 Result Notes None recorded. Problems Name Problem SNOMED Code Status Onset Date Resolution Date Notes Provider Name and Address Organization Details Recorded Time Autoimmun e thyroidit is 29568668 Active 2015 From Automated Load;Provi regi: Jose David Cortez;Stat us: Active Not Available [facility] 6 07:38:46 Non-toxic multinodu lar goiter 45603845 Active 2015 From Automated Load;Provi regi: Jose David Cortez;Stat us: Active Not Available [employer] 6 07:38:46 Obesity 557849443 Active 2015 Provider: Gil Acevedo;Statu s: Active Not Available [facility] 6 07:38:46 Problem Notes None recorded. Procedures Surgical History Date Name Laterality Status Provider Name and Address Organization Details Recorded Time 07/26/19 24 DAK - Intralesional Injection completed KRISTI HARDING PA-C [address] [place], [address], [facility] 07/26/2023 13:57:57 06/07/19 24 DAK - Intralesional Injection completed Tyrese [facility] 06/07/2023 08:57:56 09/17/19 MNT Initial Visit completed BAILEY NICHOLS, RD [address] [place], [address], [facility] 09/19/2021 09:17:16 Imaging Results None recorded. Procedure Notes None recorded. Medical Equipment None Reported. Allergies No known drug allergies Medications Name Sig Start Date Stop Date Status Note LastModified by Organization Details LastModified Time Singulair 10 mg tablet Take 1 tablet every day by oral route. active Not Available Not Available No t Available hydrocort isone 5 mg tablet 2 tablets every a.m. and 1 tablet at noon 2024 active Not Available Not Available Not Avai [...] route in the morning for 90 days. 2024 active Not Available Not Available Not Avai [...] Not Available Not Nadine ilable Not Available folic acid active Not Available Not Available Not Available Vitamin D active Not Available [...] index (BMI) Body weight Heart rate Systolic And Diastolic Provider Name and Address Organization Details Last Updated DateTime 05/16/2023 161.93 cm 39.8 kg/m2 287161.2 5 g 106 /min 128/8 mm[Hg] [facility] 05/16/2023 10:09:13 Date Recorded Body height Body mass index (BMI) Body weight Heart rate Systolic And Diastolic Provider Name and Address Organization Details Last Updated DateTime 05/17/2022 161.93 cm 43.6 kg/m2 704169.2 8 g 78 /min 135/82 mm[Hg] [facility] 11[facility]20 Date Recorded Body height Provider Name an d Address Organization Details Last Updated DateTime 06/07/2023 161.93 cm [facility] 06/07/2023 08:23:29 Date Recorded Body height Body mass index (BMI) Body weight Systolic And Diastolic Provider Name and Address Organization Details Last Updated DateTime 06/10/2024 161.93 cm 40 kg/m2 815416.84 g 124/78 mm[Hg] [facility] 06/10/2024 11:00:59 Date Recorded Body height Provider Name an d Address Organization Details Last Updated DateTime 07/26/2023 161.93 cm [facility] 07/26/2023 10:59:15 Social History Question Answer Notes LastModified by Organizat ion Details LastModified Time Tobacco Smoking Status Former Smoker [facility] 11/29/2016 09:21:22 What Was The Date [...] available 03/06/2018 10:58:46 Medical History Condition Response Pancreatitis N Gout N Thyroid Disease Y Macular Degeneration N Kidney Stones N Hyperthyroidism N Heart Arrhythmia N Emphysema N Hernia N Glaucoma N Hypothyroidism Y Depression N COPD N Pneumonia N Thyroid nodule mass N Anxiety Disorder N Hypercalcemia N Arthritis Y Shingles N Esophagus/swallowing trouble N Acid Reflux (GERD) Y Cancer Y Stroke N Melanoma N Hypoglycemia N Thyroid cyst N Alcohol Overuse/Alcohol Abuse N High Cholesterol N Skin Cancer N Liver Disease N Kidney Disease N Allergies/Hayfever Y Heart Problems N Squamous Cell Carcinoma N Black Lung N Gallbladder Disease Y Migraines Y Kidney or Bladder Problems N Goiter N Nervous Breakdown N Chest Pain N Stomach trouble N Colon Polyps N Ulcers N Heart Attack (CT) N Osteopenia N Diabetes N Rheumatic Fever N High triglycerides N Bleeding Disorder N Tuberculosis N AIDS/HIV N Congestive Heart Failure (CHF) N Diverticulitis N Cataract N Asthma Y Epilepsy/Seizures N Basal Cell Carcinoma N Sleep Apnea N Hypertension Y Osteoporosis Y Gynecological HistoryNo gynecological history recorded. Obstetrics History GPAL:G 0 P 0 0 0 0 Past Encounters Encounter ID Performer Location Encounter Start Date Encounter Closed Date Diagnosis/Indication Diagnosis SNOMED-CT Code Diagnosis ICD10 Code Diagnosis IMO Codes Diagnosis Note [id number] JOSE DAVID CORTEZ MD [facility] [address] [place] [id number] 11/29/2016 09:12:03 11/29/2016 10:31:41 Non-toxic multinodular goiter 31956304 E04.2 E06.3 Thyroid ultrasound follow-up on 07/07/2016 images and report reviewed. Stable 12 x 8 x 7 mm dominant left thyroid nodule.Con tinue to monitor thyroid nodularity by a repeat ultrasound after 1 year. Edis thyroiditis 21 371026 E06.3 Clinically she has fatigue, weight gain and hair loss Check TSH and Ft4 today [id number] JOSE DAVID CORTEZ MD [facility] [address] [place] [id number] 03/06/2018 09:40:43 03/06/2018 11:33:50 Edis thyroiditis 32911619 E06.3 Clinically she has fatigue.Ch ju TSH and Ft4 today.Furt her management as appropriat e i.e. thyroid hormone replacemen t therapy or Continue therapy as indicated. Thyroid nodule 799155579 E04.1 Thyroid ultrasound on 07/07/2016 showed small nodules are seen bilaterall y. The dominant nodule on the left measures 12 x 8 x 7 mm. No significan t increase in size is noted. Follow-up ultrasound Today down with preliminar dian upon reviewing the images she has small 11 x 8 x 7 mm nodule with no suspicious features. Continue to monitor clinically and by ultrasound every 1-2 years [id number] JOSE DAVID CORTEZ MD [facility] [address] [place] [id number] 02/28/2019 10:37:40 02/28/2019 11:38:43 Edis thyroiditis 36407846 E06.3 Clinically she has fatigue, weight gain and feeling sleepyChec k TSH and Ft4 today.Quic k bedside ultrasound showed markedly heterogene ous thyroid consistent with Edis thyroiditi s. No distinctiv e nodularity Further management as appropriat e i.e. thyroid hormone replacemen t therapy or continue monitoring as appropriat e Deficiency of vitamin D3 777324523 E55.9 Fatigue 04225091 R53.83 History of sleep apnea Feels a sleepy Previously had abnormal sleep study Recommende d referral to sleep medicine Request to be done at [facility] She will call our office to send a referral [id number] JOSE DAVID CORTEZ MD [facility] [address] [place] [id number] 1 05/17/2021 10:01:58 05/26/2021 06:10:52 Edis thyroiditis 14404739 E06.3 Clinically she has fatigue, weight gain and feeling sleepyChec k TSH and Ft4 today.Quic k bedside ultrasound showed markedly heterogene ous thyroid consistent with Edis thyroiditi s. No distinctiv e nodularity Further management as appropriat e i.e. thyroid hormone replacemen t therapy or continue monitoring as appropriat e Vitamin D deficiency 347 85575 E55.9 She does not remember how much vitamin D she currently takes Check 25OH vitamin D Further repletion as appropriat e Fatigue 26454617 R53.83 History of mild sleep apnea Feels a sleepy Previously had abnormal sleep study [id number] JOSE DAVID CORTEZ MD [facility] [address] [place] [id number] 05/23/2021 10:52:39 05/30/2021 08:43:56 Adrenal cortical hypofunction 393351314 E27.40 Serum cortisol of 0.49 on 05/17/2021 She is not currently on prednisone therapy Reported steroid injection more than 6 weeks ago I recommende d to proceed with further evaluation using1] Baseline ACTH and serum cortisol 2] 250 mcg cosyntropi n [ Synacthen] 3] 30 minutes, 60 minutes serum cortisol post cosyntropi n Further management to be determined as appropriat e Patient verbalized understand ing and agreed with the above mentioned plan of care. [id number] JOSE DAVID CORTEZ MD [facility] [address] [place] [address] 09/06/2021 09:36:16 09/06/2021 10:33:16 Adrenal cortical hypofunction 975313139 E27.40 Serum cortisol of 0.49 on 05/17/2021 Intermitte nt doses of intra-danica cular cortisone injections . Abnormal ACTH us in relation to showing 30 minute/1 hour cortisol of 5.5/6.8 respective ly on 05/23/2021 I recommende d to hydrocorti sone 10 mg upon awakening 5 mg at noon, which he did not follow through concerned about weight gain I recommende d to recheck her quantitative equity head cortisol today Further management to be determined as appropriat e i.e. start hydrocorti sone replacemen t therapy or further action is appropriat e Morbid obesity 241687890 E66.01 Current BMI of 44.5 and weight of 257 Previously had gastric sleeve surgery Inability to lose weight Limited exercise due to arthritis We had a discussion about the importance of lifestyle interventi on in the form of low-calori e diet and activity Provided with a 1500-calor ie meal plan [facility] medical nutrition therapyPha rmacologic therapy to be considered if no weight loss obtained after 3 months of lifestyle interventi onPatient verbalized understand ing and agreed with the above mentioned plan of care. 3 months follow-up [id number] BAILEY NICHOLS RD [facility] [address] [place] [address] 09/16/2021 12:58:08 09/19/2021 09:19:49 Counseling 221791564 Z71.3 Obesity 179156695 E66.01 [id number] JOSE DAVID CORTEZ MD [facility] [address] [place] [address] 03/01/2022 11:29:04 03/01/2022 12:25:47 Adrenal cortical hypofunction 795724988 E27.40 Serum cortisol of 0.49 on 05/17/2021 Intermitte nt doses of intra-danica cular cortisone injections . Abnormal ACTH us in relation to showing 30 minute/1 hour cortisol of 5.5/6.8 respective ly on 05/23/2021 epeat serum cortisol of 5.28 on 09/06/2021 Once again , I recommende d to hydrocorti sone 10 mg upon awakening 5 mg at noon, which he did not follow through concerned about weight gainShe showed me in the office today a supplement which is essentiall y a multivitam in and wondered if she can take it and instead of hydrocorti sone and explained to her that I only recommend to take hydrocorti sone or any other synthetic glucocorti coid for replacemen t therapy. I recommende d to recheck her quantitative equity head cortisol today Further management to be determined as appropriat e i.e. start hydrocorti sone replacemen t therapy or further action is appropriat e Morbid obesity 358481933 E66.01 Current BMI of down from 41.9 from 44.5 and weight of 257 Previously had gastric sleeve surgery Limited exercise due to arthritis We had a discussion about the importance of lifestyle interventi on in the form of low-calori e diet and activity Provided with a 1500-calor ie meal plan harmacolog ic therapy to be considered if no weight loss obtained after 3 months of lifestyle interventi onPatient verbalized understand ing and agreed with the above mentioned plan of care. Follow-up to be determined based on test results [id number] JOSE DAVID CORTEZ MD [facility] [address] [place] [address] 05/17/2022 10:26:14 05/17/2022 12:40:12 Adrenal cortical hypofunction 651678864 E27.40 Serum cortisol of 0.49 on 05/17/2021 Intermitte nt doses of intra-danica cular cortisone injections .Abnormal ACTH us in relation to showing 30 minute/1 hour cortisol of 5.5/6.8 respective ly on 05/23/2021 epeat serum cortisol of 5.28 on 09/06/2021 epeat quantitative equity head serum cortisol of 5.37 onAgreed to start prednisone 5 mg every Morbid obesity 988990343 E66.01 Current BMI of 43.6 up from 1.9 from 44.5 and weight of 257 SP gastric sleeve surgery Limited exercise due to arthritis We had a discussion about the importance of lifestyle interventi on in the form of low-calori e diet and activity Provided with a 1500-calor ie meal plan Pharmacolo gic therapy to be considered if no weight loss obtained after 3 months of lifestyle interventi onPatient verbalized understand ing and agreed with the above mentioned plan of care.Follo w-up to be determined based on test results [id number] JOSE DAVID CORTEZ MD [facility] [address] [place] [address] 05/16/2023 09:57:46 05/16/2023 10:26:29 Adrenal cortical hypofunction 375826309 E27.40 Serum cortisol of 0.49 on 05/17/2021In termittent doses of intra-danica cular cortisone injections .Abnormal ACTH us in relation to showing 30 minute/1 hour cortisol of 5.5/6.8 respective ly on 05/23/2021 epeat serum cortisol of 5.28 on 2O nce again and we had a discussion about the importance of cortisol replacemen t therapy due to adrenal insufficie ncy. She is hesitant to restart I would like to reevaluate by checking morning cortisol/A [facility] Morbid obesity 743639631 E66.01 Current BMI of 39.8 down from 43.6 up from 1.9 from 44.5 and weight of 230 down from 257SP gastric sleeve surgeryLim ited exercise due to arthritisW e had a rediscussi on about the importance of lifestyle interventi on in the form of low-calori e diet and activityCo ntinue Ozempic therapy per her PCP Non-toxic multinodular goiter 17374459 E04.2 E06.3 Thyroid ultrasound follow-up on 07/07/2016 images and report reviewed. Stable 12 x 8 x 7 mm dominant left thyroid nodule. In the office today we had a discussion about thyroid nodule frequency, cancer risk, diagnostic workup, management and long-term follow-up. Thyroid function test todayNo change in nodule size on physical exam todayConti nue to monitor thyroid nodularity by a repeat ultrasound Further management as appropriat e i.e. continued monitoring or consider ultrasound -guided FNA Patient verbalized understand ing and agreed with the above mentioned plan of care. [id number] KRISTI HARDING PA-C [facility] [address] 06/07/2023 08:16:20 06/08/2023 13:56:27 Alopecia areata 97485746 L63.8 Discussed nature of diagnoses. Pt notes flares after stress. Will send clobetasol 0.05% scalp solution to apply to the scalp BID x2 weeks, then take 2 week break.Will inject with ILK today [id number] KRISTI HARDING PA-C [facility] [email or web address] [address] 07/26/2023 10:46:26 07/30/2023 12:34:29 Alopecia areata 50341698 L63.8 Discussed the nature of the diagnosisW ill inject again today with ILK Pt has been using rx clobetasol 0.05% scalp solutionCo ntinue clobetasol BID x2 weeks [id number] JOSE DAVID CORTEZ MD [facility] [address] [place] [address] 06/10/2024 10:50:55 06/10/2024 11:40:25 Adrenal cortical hypofunction 732486147 E27.40 Clinically she denies any symptoms of uncontroll ed adrenal sufficienc y She will continue hydrocorti sone 10 mg every upon awakening and 5 mg at noon Stress dose steroids reviewed with the patient Check BMP today Hypothyroidism 45493945 E03.9 Appears a clinically euthyroid Continue current levothyrox ine 50 mcg every a.m. at present Patient was instructed on the appropriat e method of levothyrox in administra tion to be taken every a.m. on an empty stomach as new food, drinks or other medication s for at least 30 minutes. PPI and calcium -containin g preparatio ns is preferred to be given at least of her hours before or after levothyrox in therapy. TSH and free T4 today Further adjustment as appropriat e Non-toxic multinodular goiter 07642008 E04.2 E06.3 Thyroid ultrasound follow-up on 05/30/2023, Isthmus measures 0.4 cm in thickness. Right lobe measures 4x 2 x 1.7 cm. Left lobe measures 3.4 x 1.5 x 1.3 cm.The gland is small in size and heterogene ous in echotextur e.Bilatera l thyroid nodules are seen.The dominant nodule in the right lobe measures 0.6 x 0.4 x 0.9 cm cm.The dominant nodule in the left lobe measures 1.2 x 0.7 x 1.4 cm.No significan t change is seen as compared to the previous exam. In the office today we had a rediscussi on about thyroid nodule frequency, cancer risk, diagnostic workup, management and long-term follow-up. No change in nodule size on physical exam todayConti nue to monitor thyroid nodularity by a repeat ultrasound before next visit after 1 yearPatien t verbalized understand ing and agreed with the above mentioned plan of care. Health Concerns Section Related Observation LastModified by Organization Detai ls LastModified Time None Recorded Concern Status LastModified by Organization Details LastModified Time None Recorded Advance Directives Directive None Recorded Payers Insurance Date Sequence Insurance Name Policy Number Policy Ruiz Covered Member ID Ruiz Member ID Guarantor Name 06/07/2024 1 [place] Gabriel Cardona [id number] Gabriel Cardona 06/07/2024 2 [place] [id number] R Wyatt Cardona [id number] Gabriel Cardona Notes Date Note Type Note Provider Name and Address Organization Details Recorded Time 3 text/html 62-year-old female patient with a [...] she was concerned about weight gain.Interval history:Repeat quantitative equity head cortisol 5.3Hesitant to take prednisone concerned about weight gainShe denies any nausea, vomiting, abdominal pain or dizziness JOSE DAVID CORTEZ MD [address] [place] [address], [phone], [facility] 05/17/2022 12:01:41 4 text/html 63-year-old female patient [...] she was concerned about weight gain.Interval history:Repeat quantitative equity head cortisol 5.3Alternatively she was started on prednisone [...] analgesics through pump JOSE DAVID CORTEZ MD [address] [place] [address], [phone], [facility] 05/16/2023 10:26:11 4 text/html I'm having hair loss Where in the scalp it began: l HairlineGeneral duration: ~20 + yearsPredominant symptom:patchesPrior treatment(s): ILK scalp injectionsIn recent months, the problem seems to be:minimally changed- flares up after surgeries, pt has seen massa in the past for injections. pt has had this since 1982. KRISTI HARDING PA-C [address] [place], [phone], [facility] 06/12/2023 09:04:14 4 text/html Alopecia areata F/u Where in the scalp it began: l HairlineGeneral duration: ~20 + yearsPredominant symptom:patchesPrior treatment(s): ILK scalp injectionsIn recent months, the problem seems to be:minimally changed- flares up after surgeries, pt has seen massa in the past for injections. pt has had this since 1982. KRISTI HARDING PA-C [address] [place] [address], [phone], [facility] 07/26/2023 13:58:28 5 text/html 64-year-old female patient with a past medical history of Edis thyroiditis, multinodular goiter, obesity status post gastric sleeve surgery, adrenal insufficiency seen today for 3 months follow-up visit adrenal insufficiency/hypothyroid ism/thyroid nodule Summary of history:ACTH a solution test on 05/23/2021 showed low baseline cortisol 0.91 and 30 minutes/30 minute cortisol of 5.5 and 6.8 respectively.Consequently she was a started on hydrocortisone 10 mg every a.m. and 5 mg at noonShe did not start therapy on i.e. upon questioning she stated that she was concerned about weight gain.Repeat quantitative equity head cortisol 5.3Alternatively she was started on prednisone 5 mg everyShe comes into the office and stated that she self discontinued prednisone concerned about side effects i.e. weight gain, buffalo hump.Last office visit she was restarted on hydrocortisone 10 mg every am upon awakening and 5 mg at noonInterval history She continues to take hydrocortisone 10 mg every a.m. upon awakening and 5 mg at noonShe denies any recent onset fatigue or anorexia, vomiting or abdominal painComplaining of worsening right hip arthritis and wonders if she can take intra articular steroid injections For hypothyroidism she takes levothyroxine 50 mcg every a.m. She denies any palpitations, shaking, excessive sweating or recent unintentional weight loss JOSE DAVID CORTEZ MD [address] [place] [address], [phone], [facility] 06/10/2024 11:38:08 OBGyn Episode No OBEpisode recorded.
--- OUTSIDE RECORDS SUMMARY | 2025-03-27 15:11 | XMS_ITS | Encounter Summary ---
[facility] Address [address] [place] [id number] Care Team Providers Care Coroner Technician Name Role Phone Afua [place] Primary Care Provider [phone] Encounter Details Date Type Department Care Team (Late Contact Info) Description 08/06/2024 Results Follow-Up [facility] [address] [address] Hung Garcia APRN [address] [id number] Social History Tobacco Use Types Packs/Day Years [...] 05/06/2025 2:30 PM EST Office Visit [facility] 330 [facility] [address] [place] [address] Nevin Lang APRN [address] [address] documented as of this encounter Visit Diagnoses Not on filedocumented in this encounter Care Teams Coroner Technician Relationship Specialty Start Date End Date Afua [place] DO [facility] [place] [address] PCP - General Family Medicine 10/14/15 documented as of this encounter
--- OUTSIDE RECORDS SUMMARY | 2025-03-27 15:11 | XMS_ITS | Encounter Summary ---
[facility] Address [address] [place] [id number] Care Team Providers Care Perpetual Inventory Clerk Name Role Phone Afua [place] Ellen Primary Care Provider [phone] Reason for Visit * Reason Onset Date Comments Med Refill 02/24/2025 Encounter Details Date Type Department Care Team (Late Contact Info) Description 02/24/[address] [facility] [address] [place] [phone] Hung Garcia APRN [address] [place] [address] Fibromyalgia; Primary osteoarthritis involving multiple joints; NSAID [...] Description 05/06/2025 2:30 PM EST Office Visit [facility] [address] [address] Nevin Lang APRN Jenny [facility] [address] [place] [address] documented as of this encounter Visit Diagnoses Diagnosis Fibromyalgia Unspecified myalgia and myositis Primary osteoarthritis involving multiple joints NSAID long-term use Encounter for long-term (current) use of non-steroidal anti-inflammatories High risk medication use documented in this encounter Care Teams Perpetual Inventory Clerk Relationship Specialty Start Date End Date Afua [place] DO [address] [place] [address] PCP - General Family Medicine 10/14/15 documented as of this encounter
--- OUTSIDE RECORDS SUMMARY | 2025-03-27 15:11 | XMS_ITS | Encounter Summary ---
Author Organization [employer] ([place], [place], [place], [place], [place]) Address [address] [place] [address] Care Team Providers Care Tour Narrator Name Role Phone Unavailable Primary Care Provider Unavailabl e Encounter Details Date Type Department Care Team (Late st Contact Info) Description 03/11/2020 Transcribed Document [facility] [place] [address] [place] [address] ProviderUlises MD [address] [place] [address] Social History Tobacco Use Types [...] - Ulises ProviderMD - 03/11/2020 6:20 AM FISH AND GAME WARDEN Patient: GABRIEL CARDONA Age: 59 years Sex: [...] mg, Oral, BID, 0 Refill(s) Flonase: 1 Freeburn, Nostrils Both, At Bedtime, 0 Refill(s) Singulair [...] = 1 Tab, Oral, Daily Flonase 1 Freeburn, Nostrils Both, At Bedtime gabapentin 600 mg [...] All Problems Thyroid disease / SNOMED CT 484786999 / Confirmed Restless legs syndrome / SNOMED CT 73117553 / Confirmed Migraine / SNOMED CT 14017722 / Confirmed Irritable bowel syndrome / SNOMED CT 72582742 / Confirmed Edis's thyroiditis / SNOMED CT 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 / Confirmed Foot pain, bilateral / SNOMED CT 801465050 / Confirmed Fibromyalgia / SNOMED CT 32566822 / Confirmed degenerative disc disease / Confirmed Carpal tunnel syndrome / SNOMED CT 40082385 / Confirmed bilateral Back pain / SNOMED CT 722641454 / Confirmed At risk for sleep apnea / IMO 12505160 / Confirmed Asthma / SNOMED CT 932564318 / Confirmed Arthritis / SNOMED CT 0725688 / Confirmed alopecia areooca / Confirmed, Active [...] 162 (MAR 11 06:00) H 162 (MAR 11:00) DBP 85 (MAR 11 06:00) 85 (MAR 11 06:00) 85 (MAR 11 06:00) SpO2 98 (MAR 11:00) 98 (MAR 11 06:00) 98 (MAR 11 06:) General: Alert and oriented, No acute distress, [...]
--- OUTSIDE RECORDS SUMMARY | 2025-03-27 15:11 | XMS_ITS | Encounter Summary ---
Author Organization [employer] ([place], [place], [place], [place], [place]) Address [address] [place] [address] Care Team Providers Care Change Management Consultant Name Role Phone Unavailable Primary Care Provider Unavailabl e Encounter Details Date Type Department Care Team (Late st Contact Info) Description 03/11/2020 Transcribed Document [facility] [place] [address] [place] [address] ProviderUlises MD [address] [place] [address] Social History Tobacco Use Types [...] - Historical ProviderMD - 03/11/2020 7:53 AM FISH HOUSEKEEPER [facility] Main OR PostOp Summary Primary Physician: VICTOR M BANKS, DPM-POD Finalized Date/Time: 03/11/20 09:47:31 Pt. Name: GABRIEL CARDONA/Sex: 1960 Female Med Rec #: [id number] Physician: VICTOR M BANKS DPM-POD Financial #: [id number] Pt. Type: O Room/Bed: /2 Admit/Disch: 03/11/20 05:26:00 - Institution: [facility] Main OR PostOp Case Times Entry 1 In PACU II 03/11/20 09:16:00 Ready for PACU II 03/11/20 09:40:00 Discharge Discharge from PACU 03/11/20 09:47:00 II Last Modified By: Jessica Rajput RN 03/11/20 09:47:29 [facility] Main OR PostOp Case Times Audit 03/11/20 09:47:29 Religious Assistant: [id number] Modifier: [id number] <+> 1 Discharge from PACU II 03/11/20 09:41:28 Religious Assistant: [id number] Modifier: [id number] <*> Ready for PACU II Discharge 03/11/20 09:41:00 03/11/20 09:41:20 Religious Assistant: [id number] Modifier: [id number] <+> 1 Ready for PACU II Discharge Finalized By: [place] Rajput RN Document Signatures Signed By: [place] Rajput RN 03/11/20 09:47 Electronically signed by Aubrey [facility] Conversion Resource Development Director Cerner at 07/27/2022 1:09 PM CDT documented in this encounter Plan of Treatment Not on file documented as of this encounter Visit Diagnoses Not on filedocumented in this encounter
--- OUTSIDE RECORDS SUMMARY | 2025-03-27 15:11 | XMS_ITS | Encounter Summary ---
Author Organization [employer] ([place], [place], [place], [place], [place]) Address [address] [place] [address] Care Team Providers Care Ramp Supervisor Name Role Phone Unavailable Primary Care Provider Unavailabl e Encounter Details Date Type Department Care Team (Late st Contact Info) Description 03/11/2020 Transcribed Document [facility] [place] Family Medicine [address] [place] [address] ProviderUlises MD [address] [place] [address] Social History Tobacco Use Types [...] - Historical ProviderMD - 03/11/2020 7:53 AM TENSION WORKER [facility] Main OR Preop Summary Primary Physician: VICTOR M BANKS, DPM-POD Finalized Date/Time: 03/11/20 09:43:09 Pt. Name: GABRIEL CARDONA/Sex: 1960 Female Med Rec #: [id number] Physician: VICTOR M BANKS DPM-POD Financial #: [id number] Pt. Type: O Room/Bed: /2 Admit/Disch: 03/11/20 05:26:00 - Institution: [facility] PreOp Case Times Entry 1 In Preop 03/11/20 05:49:00 Ready for Holding n/a Room Patient Ready for 03/11/20 06:34:00 Surgery Patient Out of Preop 03/11/20 07:26:00 Patient Out of n/a Holding Room Last Modified By: [place] Rajput RN 03/11/20 09:16:[address] [facility] PreOp Case Times Audit 03/11/20 09:16:40 Cook Fry: [id number] Modifier: [id number] <+> 1 Patient Out of Preop Finalized By: Kelly Landa RN Document Signatures Signed By: Kelly Landa RN 03/11/20 09:43 Electronically signed by Aubrey [facility] Conversion Agriculture Scientist Cerner at 07/27/2022 1:30 PM CDT documented in this encounter Plan of Treatment Not on file documented as of this encounter Visit Diagnoses Not on filedocumented in this encounter
--- OUTSIDE RECORDS SUMMARY | 2025-03-27 15:11 | XMS_ITS | Clinical Summary ---
Author Organization [employer] ([place], [place], [place], [place], [place]) Address [address] [place] [address] Care Team Providers Care Supervisor Picking Crew Name Role Phone Unavailable Primary Care Provider [...]
--- OUTSIDE RECORDS SUMMARY | 2025-03-27 15:11 | XMS_ITS | Encounter Summary ---
Author Organization [employer] ([place], [place], [place], [place], [place]) Address [address] [place] [address] Care Team Providers Care Superintendent Name Role Phone Unavailable Primary Care Provider Unavailabl e Encounter Details Date Type Department Care Team (Late st Contact Info) Description 03/11/2020 Transcribed Document [facility] [place] [address] [place] [address] ProviderUlises MD [address] [place] [address] Social History Tobacco Use Types [...] - Ulises ProviderMD - 03/11/2020 9:26 AM PARKS AND RECREATION MANAGER [facility] [address] [place] [id number] GABRIEL CARDONA :1960 Visit Time:03/11/2020 What to [...] M BANKS When Within 1 week Where: [address] [place], [place] [phone] [facility] (1) Medications What How Much When Instructions Next Dose albuterol-ipratropium (albuterol-ipratropium 103 mcg-18 mcg/ inh inhalation aerosol) Inhalation As needed for Shortness of Breath celecoxib (CeleBREX 200 mg oral capsule) 1 Capsule(s) Oral Two Times A Day DULoxetine (Cymbalta) 60 Milligram(s) Oral Two Times A Day fexofenadine (fexofenadine 180 mg oral tablet) 1 Tablet(s) Oral Every Day fluticasone nasal (Flonase) 1 [place](s) Nostrils Both At Bedtime gabapentin (gabapentin 600 [...] and water are not available, use hand preconstruction manager. ? Change your dressing as told by [...] or a bad smell. Medicines ??? Take zzsn-png-kszkoyi and prescription medicines only as told by [...] 07/16/2016 Document Revised: 06/24/2018 Document Reviewed: 07/16/2016 [email or web address] Patient Education ?? 2020 [employer]. promethazine (oral) (pro METH a zeen) Phenergan What is the most important information I should know about promethazine? Promethazine should not be given to a child younger than 2 years old. Promethazine can cause severe breathing problems or in very young children. What is promethazine? Promethazine is in a group of drugs called phenothiazines (SWSK-ka-XUGA-a-zeens). It works by changing the actions of [...] may report side effects to FDA at 5-451-UJO-0954. What other drugs will affect promethazine? Using this medicine with other drugs that make you sleepy or slow your breathing can cause dangerous or life-threatening side effects. Ask your doctor before taking promethazine with a sleeping pill, narcotic pain medicine, muscle relaxer, or medicine for anxiety, depression, or seizures. Other drugs may interact with promethazine, including prescription and eaps-sij-skzahdt medicines, vitamins, and herbal products. Tell each [...] to ensure that the information provided by [employer] ('[employer]') is accurate, up-to-date, and complete, but no guarantee is made to that effect. Drug information contained herein may be time sensitive. [employer] information has been compiled for use by healthcare practitioners and consumers in the [place] and therefore [employer] does not warrant that uses outside of the [place] are appropriate, unless specifically indicated otherwise. [employer] drug information does not endorse drugs, diagnose patients or recommend therapy. [employer] drug information is an informational resource designed [...] effective or appropriate for any given patient. [employer] does not assume any responsibility for any aspect of healthcare administered with the aid of information [employer] provides. The information contained herein is not intended to cover all possible uses, directions, precautions, warnings, drug interactions, allergic reactions, or adverse effects. If you have questions about the drugs you are taking, check with your doctor, nurse or pharmacist. Copyright 7707-4491 [employer] Version: 6.02. Revision Date: 01/21/2015. acetaminophen and hydrocodone (a SEET a MIN oh fen and allan droe KOE done) Hycet, Lorcet, [place], Verdrocet, Vicodin, Xodol, Zamicet What is the [...] may report side effects to FDA at 3-896-YOL-5808. What other drugs will affect acetaminophen and [...] affect acetaminophen and hydrocodone, including prescription and myij-mlh-kclrknf medicines, vitamins, and herbal products. Not all [...] to ensure that the information provided by [employer] ('[employer]') is accurate, up-to-date, and complete, but no guarantee is made to that effect. Drug information contained herein may be time sensitive. [employer] information has been compiled for use by healthcare practitioners and consumers in the [place] and therefore [employer] does not warrant that uses outside of the [place] are appropriate, unless specifically indicated otherwise. [employer] drug information does not endorse drugs, diagnose patients or recommend therapy. [employer] drug information is an informational resource designed [...] effective or appropriate for any given patient. [employer] does not assume any responsibility for any aspect of healthcare administered with the aid of information [employer] provides. The information contained herein is not intended to cover all possible uses, directions, precautions, warnings, drug interactions, allergic reactions, or adverse effects. If you have questions about the drugs you are taking, check with your doctor, nurse or pharmacist. Copyright 1926-6587 [employer] Version: 16.. Revision Date: 04/30/2019. Emergency Awareness [...] Assistance with quitting is available by contacting 0-252-GIRENOW. This is a free resource providing counseling, [...] was given the opportunity to ask questions. Patient/Stroboroma Operator Name: Patient/Stroboroma Operator Signature: Relationship to Patient: Clinician/Hospital Stroboroma Operator Signature: Date: documented in this encounter Plan of Treatment Not on file documented as of this encounter Visit Diagnoses Not on filedocumented in this encounter
--- OUTSIDE RECORDS SUMMARY | 2025-03-27 15:11 | XMS_ITS | Encounter Summary ---
Author Organization [employer] ([place], [place], [place], [place], [place]) Address [address] [place] [address] Care Team Providers Care Publications Distribution Clerk Name Role Phone Unavailable Primary Care Provider Unavailabl e Encounter Details Date Type Department Care Team (Late st Contact Info) Description 03/11/2020 Transcribed Document [facility] [place] Family Medicine [address] [place] [address] ProviderUlises MD [address] [place] [address] Social History Tobacco Use Types Packs/Day Years Used Date Smoking Tobacco: Never Assessed Comments Unknown Sex and Gender Information Value Date Recorded Sex Assigned at Female 10/06/2021 11:59 AM CDT Legal Sex Female 7:14 PM CDT Gender Identity Female 10/06/2021 11:59 AM CDT Sexual Orientation Not on file documented as of this encounter Miscellaneous Notes * Boni Conversion Note - Ulises Shaver MD - 03/11/2020 8:35 AM PHYSICIAN INDUSTRIAL Patient: GABRIEL CARDONA Age: 59 Years Sex: [...] - Start Time: 03/11/20 07:53:00 (03/11/20 08:29:33) Electronically signed by Aubrey [facility] Conversion Photogrammetric Compilation Specialist Cerner at 07/27/2022 1:18 PM CDT documented in this encounter Plan of Treatment Not on file documented as of this encounter Visit Diagnoses Not on filedocumented in this encounter
== END 2025-03-27 23:59 | disposition home or self-care (01) ==
LOC: RAD 15:09
PROVIDERS: PCP Family Medicine; Visit Provider Family Medicine
DX: Z12.31 Encounter for screening mammogram for malignant neoplasm of breast (principal)
CPT/HCPCS: 77063; 77067